=== PATIENT | male | born 1930 | race Caucasian/White ===

== ENCOUNTER 2016-03-30 01:59 | Emergency (ER) | payer OTHER, MEDICARE ==
[~2016-03-30] VITALS: Ht 177.8 cm; Wt 83.6 kg
[~2016-03-30 01:59] MED LIST: ASPEC81 PO; FERR324T PO; FLV1 PO; HYDC25 PO; INSDGI SC; LOSA1TAB PO; LSX40 PO; METH1INJ89 SQ; METO50TA16 PO; MULT-506 PO; NVLRPUC SQ; POTA10CA28 PO; RRNOVOLINR SQ; SIMV20TA2 PO
[2016-03-30 02:01] VITALS: Ht 177.8 cm; Wt 83.6 kg
[2016-03-30] MEDS ORDERED: OXYMETAZOLINE HCL 0.05% NA SPR 15 ML BTL ONE ×2 (02:17→02:30)
--- NOTE | 2016-03-30 02:34 | EMERGENCY ROOM VISIT NOTE ---
History Report prepared by Pattie: Brayan Delgado Under the Supervision of: Dr. Alfredo Adam M.D. First contact with patient: 02:09 Chief Complaint: NOSE BLEED (MINOR) Stated Complaint: NOSE BLEED - CAN'T GET IT STOPPED History of Present Illness The patient is a 86 year old male who presents to the Emergency Room with complaints of intermittent left sided epistaxis starting about 4 hours ago. He denies chest pain, abdominal pain, black/bloody stools, lower extremity pain/ swelling, bruising, or any other complaints. The patient was evaluated in the Emergency Room about a week ago for similar symptoms. He denies any other history of nosebleed. The patient is on Aspirin. He is no longer on Coumadin. Source of History: patient Onset: about 4 hours ago Position: nose Quality: other (left sided epistaxis) Timing: intermittent Associated Symptoms: No abdominal pain, No chest pain Review of Systems See HPI for pertinent positives & negatives. A total of 6 systems reviewed and were otherwise negative. Past Medical & Surgical Medical Problems: (1) Diabetic peripheral neuropathy associated with type 2 diabetes mellitus (2) Epistaxis (3) Foot deformity (4) History of diabetic ulcer of foot (5) Loss of sensation Family History FHx: heart disease Social History Smoking Status: Never Smoker Marital Status: Occupation Status: retired Current/Historical Medications Scheduled Aspirin Enteric Coated (Ecotrin Or Generic *), 81 MG PO DAILY Cephalexin Monohydrate (Keflex), 500 MG PO TID Ferrous Gluconate (Iron Supplement), 324 MG PO DAILY Folic Acid (Folvite *), 1 MG PO DAILY Furosemide (Furosemide), 40 MG PO DAILY Hydrochlorothiazide (Hctz *), 25 MG PO DAILY Insulin Glargine (Lantus), 15 UNITS SC QPM Insulin Human Regular (Novolin R), 15 UNITS SQ DAILYBB Insulin Human Regular (Novolin R), 12 UNITS SQ DAILYBL Insulin Human Regular (Novolin R), 20 UNITS SQ DAILYBD Losartan Potassium (Cozaar), 25 MG PO DAILY Methotrexate (Methotrexate), 10 MG SQ WK Metoprolol Tartrate (Lopressor) (Lopressor), 50 MG PO DAILY Multivitamin (Multivitamin), 1 TAB PO DAILY Potassium Chloride (Micro-K Ext Rel), 20 MEQ PO DAILY Simvastatin (Zocor), 20 MG PO QPM Allergies Coded Allergies: No Known Allergies (Verified , 03/30/16) Physical Exam Vital Signs Date Time Temp Pulse Resp B/P Pulse Ox O2 Delivery O2 Flow Rate FiO2 03/30/16 03:51 76 18 115/64 96 03/30/16 02:01 79 21 143/69 100 Room Air Physical Exam GENERAL: Patient is well appearing and in minimal distress. HEENT: No acute trauma, normocephalic atraumatic. Active bleeding from left nares, no clear source of blood found. Mucous membranes moist, no nasal congestion, no scleral icterus. NECK: No stridor, no adenopathy, no meningismus, trachea is midline. LUNGS: No dyspnea. Clear to auscultation and equal bilaterally. No wheeze, no rhonchi. HEART: Regular rate and rhythm. No murmurs, rubs, gallops appreciated. EXTREMITIES: Normal motion all extremities, no cyanosis, no edema. NEUROLOGIC: Alert and oriented, no acute motor or sensory deficits, no focal weakness, cranial nerves grossly intact. SKIN: No rash, no jaundice, no diaphoresis. Medical Decision & Procedures Laboratory Results 03/30/16 02:30 03/30/16 02:30 Test 03/30/16 02:30 Red Blood Count 2.92 M/uL (4.7-6.1) Mean Corpuscular Volume 94.2 fL (80-100) Mean Corpuscular Hemoglobin 30.8 pg (25-34) Mean Corpuscular Hemoglobin Concent 32.7 g/dl (32-36) RDW Standard Deviation 55.2 fL (36.4-46.3) RDW Coefficient of Variation 16.2 % (11.5-14.5) Mean Platelet Volume 10.0 fL (7.4-10.4) Prothrombin Time 11.4 SECONDS (9.0-12.0) Prothromb Time International Ratio 1.1 (0.9-1.1) Activated Partial Thromboplast Time 24.4 SECONDS (21.0-31.0) Partial Thromboplastin Ratio 0.9 Anion Gap 11.0 mmol/L (3-11) Est Creatinine Clear Calc Drug Dose 27.7 ml/min Estimated GFR () 35.7 Estimated GFR (Non- 30.8 BUN/Creatinine Ratio 19.0 (10-20) Calcium Level 8.3 mg/dl (8.5-10.1) Laboratory results as reviewed by me. Medications Administered Medications (Trade) Dose Ordered Sig/Rosemarie Route Start Time Stop Time Status Last Admin Dose Admin Cephalexin Monohydrate (Keflex Cap) 500 mg NOW ONCE PO 03/30/16 03:30 03/30/16 03:31 DC 03/30/16 03:42 500 MG Procedure Anterior Nasal Packing Indication: Persistent epistaxis Verbal consent obtained. Risks and benefits were explained with the usual customary discussion. A time out was taken. Clots were removed with suction. The left naris was prepped with Afrin. A 5.5-cm rapid rhino was placed in a standard fashion. The patient tolerated this well. Hemostasis was achieved. No complications. ED Course 0209: The patient was evaluated in room B06. A complete history and physical exam was performed. 0308: The patient did not have any more nosebleeds. 0326: Reevaluated the patient. Discussed results and discharge instructions: He verbalized understanding and agreement. The patient is ready for discharge. Medical Decision Differential: Anterior/Posterior Epistaxis, Coagulopathy, Trauma, Fracture, Septal Hematoma, amongst other pathologies entertained. 86 yr old male on ASA 81mg MWF arrives for second time in week with left nasal epistaxis. No clear source of bleeding though suspect anterior septum as there is some irritation in this area. Given this is second trip and he has been trying adequate approach at home last few hours felt that RapidRhino next step this evening. Placed in standard fashion without issue. Noted some discomfort thus small amount air removed. Very slight bloody ooze following but no further after this. Discussed ooze may come and go but if no heavy bleeding nor soaking then reasonable to monitor at home. Having no posterior bleeding with rhino in. As no previous issues until last week with bleeding went ahead with labs which he has similar anemia to previous and otherwise labs OK. Case management in to see about helping get in with ENT in 48-[address] on a few days Keflex for prophylaxis. Stable and otherwise feeling well. Discussed symptoms requiring RTED. Impression Primary Impression: Left-sided epistaxis Scribe Attestation The scribe's documentation has been prepared under my direction and personally reviewed by me in its entirety. I confirm that the note above accurately reflects all work, treatment, procedures, and medical decision making performed by me. Departure Information Dispostion Home / Self-Care Prescriptions Cephalexin Monohydrate (Keflex) 500 Mg Cap 500 MG PO TID for 3 Days, #9 CAP Prov: Alfredo Adam M.D. 03/30/16 Referrals Seng Narvaez III, M.D. (PCP) Arnol Pickering D.O. Forms HOME CARE DOCUMENTATION FORM, IMPORTANT VISIT INFORMATION, WORK / SCHOOL INSTRUCTIONS Patient Instructions A Signature Page, ED Georgie, My [facility]
[2016-03-30 02:39] LABS: HEMATOCRIT 27.5 % (42-52); MEAN CELL VOLUME 94.2 fL (80-100); MEAN CORPUSCULAR HEMOGLOBIN 30.8 pg (25-34); MEAN CORPUSCULAR HGB CONC 32.7 g/dl (32-36); PLATELET COUNT 129 K/uL (130-400); RED BLOOD COUNT 2.92 M/uL (4.7-6.1); WHITE BLOOD COUNT 6.31 K/uL (4.8-10.8)
[2016-03-30 02:51] LABS: INR 1.1 (0.9-1.1); PARTIAL THROMBOPLASTIN RATIO 0.9; PROTHROMBIN TIME (PATIENT) 11.4 SECONDS (9.0-12.0)
[2016-03-30 02:56] LABS: CALCIUM 8.3 mg/dl (8.5-10.1); CREATININE 1.9 mg/dl (0.60-1.40); POTASSIUM 3.5 mmol/L (3.5-5.1)
[2016-03-30] MEDS ORDERED: CEPH500C PO (03:23)
[2016-03-30] MEDS ORDERED: CEPHALEXIN MONOHYDRATE 250 MG CAP PO ONE (03:30)
[2016-03-30 03:51] VITALS: BP 115/64; PULSE 76; O2SAT 96
[2016-09-03] MEDS ORDERED: RXC5 PO (14:13)
[2016-09-03] MEDS ORDERED: ERTA1INJ IV (14:13)
[2016-09-03] MEDS ORDERED: DAPT500I IV (14:13)
[2016-09-27] MEDS ORDERED: IPRASOL4 INH (15:22)
[2016-10-19] MEDS ORDERED: OXYC-57 PO (08:09)
[2016-11-11] MEDS ORDERED: NYSS5 PO (12:48)
[2016-11-11] MEDS ORDERED: PIPE2SOL IV (12:48)
[2016-11-11] MEDS ORDERED: HPRIS5M SQ (12:48)
[2016-11-11] MEDS ORDERED: MCRK20 PO (12:48)
[2016-11-11] MEDS ORDERED: LSX20 PO (12:51)
[2016-12-06] MEDS ORDERED: ASCO1CAP3 PO (12:46)
[2016-12-06] MEDS ORDERED: PROTEIN PO (13:17)
[2016-12-06] MEDS ORDERED: NVLGI/PEN SQ (13:17)
[2016-12-20] MEDS ORDERED: ULT50X PO (19:08)
== END 2016-03-30 03:51 | disposition home or self-care (01) ==
LOC: C.EDB 02:00
DX: R04.0 Epistaxis (principal); E11.40 Type 2 diabetes mellitus with diabetic neuropathy, unspecified; E08.621 Diabetes mellitus due to underlying condition with foot ulcer; Z79.4 Long term (current) use of insulin; Z79.82 Long term (current) use of aspirin; Z79.899 Other long term (current) drug therapy; Z82.49 Family history of ischemic heart disease and other diseases of the circulatory system

== ENCOUNTER 2016-08-20 13:26 | Inpatient (IN) | payer OTHER, MEDICARE ==
[~2016-08-20] VITALS: Ht 177.8 cm; Wt 87.6 kg
[2016-08-20] MEDS ORDERED: CEFTRIAXONE SOD INJ 1 GM ADDVIAL IV STA (13:45)
--- NOTE | 2016-08-20 13:56 | EMERGENCY ROOM VISIT NOTE ---
History First contact with patient: 13:34 Chief Complaint: SWELLING TO EXTREMITY Stated Complaint: REDNESS, SWELLING TO LOWER LEFT LEG History of Present Illness The patient is an 86 year old male who presents to the Emergency Room with complaints of left leg redness and swelling. The patient saw his flavorer 4 days ago to have his toenails cut as he does regularly. The patient states that she put a Band-Aid on his toe but he did not realize if there was any open area. The patient states that he noticed redness to the left leg over the last 3 days and has progressively worsened and extending proximally. He took his sock off and noticed bleeding at the toe. The patient denies any fevers. He denies any pain but he does have diabetic neuropathy. He denies any pain in his chest or trouble breathing. He denies any abdominal pain, nausea or vomiting. He denies any other injury. 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 Review of Systems A 10 system review of systems was completed with positives and pertinent negatives listed in the HPI. Past Medical/Surgical History Medical Problems: (1) Atrial fibrillation (2) Cellulitis and abscess of foot (3) Diabetic peripheral neuropathy associated with type 2 diabetes mellitus (4) Epistaxis (5) Foot deformity (6) History of diabetic ulcer of foot (7) Loss of sensation Family History FHx: heart disease Social History Smoking Status: Former Smoker Marital Status: Occupation Status: retired Current/Historical Medications Scheduled Aspirin Enteric Coated (Ecotrin Or Generic), 81 MG PO QAM Cholecalciferol (Vitamin D), 2,000 UNIT PO QAM Ferrous Gluconate (Fe Gluconate), 325 MG PO QAM Folic Acid (Folic Acid), 1 MG PO QAM Furosemide (Furosemide), 40 MG PO DAILY Insulin Glargine (Lantus), 15 UNITS SC QPM Insulin Human Regular (Novolin R), 15 UNITS SQ DAILYBB Insulin Human Regular (Novolin R), 12 UNITS SQ DAILYBL Insulin Human Regular (Novolin R), 20 UNITS SQ DAILYBD Losartan Potassium (Cozaar), 12.5 MG PO DAILY Methotrexate (Methotrexate Sodium), 10 MG SQ WK Metoprolol Tartrate (Lopressor) (Lopressor), 25 MG PO BID Multivitamin (Multivitamin), 1 TAB PO DAILY Potassium Chloride (Micro-K Ext Rel), 10 MEQ PO DAILY Simvastatin (Zocor), 10 MG PO QPM Allergies Coded Allergies: Lisinopril (Unverified Allergy, Unknown, COUGHING, 08/20/16) Physical Exam Vital Signs Date Time Temp Pulse Resp B/P (MAP) Pulse Ox O2 Delivery O2 Flow Rate FiO2 08/20/16 13:28 37.0 109 20 120/52 92 Room Air Physical Exam VITALS: Vitals are noted on the nurse's note and reviewed by myself. Vital signs stable. GENERAL: This is an 86-year-old male, in no acute distress, nondiaphoretic, well -developed well-nourished. SKIN: There are venous stasis changes to the bilateral lower extremities. There is erythema to the left lower extremity on the anterior aspect that extends from the knee to the toes. There is an open area to the distal plantar aspect of the left third toe. There is mild bleeding. There is necrotic tissue and hematoma to the plantar aspect of the left third toe. There is no significant tenderness to palpation. There is no purulent drainage. There is no tenting of the skin. Capillary reflex less than 2 seconds. HEAD: Normocephalic atraumatic. EARS: The external ears are normal in appearance. EYES: Pupils equal round and reactive to light and accommodation. Conjunctivae without injection, sclerae without icterus. Extraocular movements intact. NOSE: Patent, turbinates without inflammation or discharge. MOUTH: Mucous membranes moist. Tonsils are not enlarged. Pharynx without erythema or exudate. Uvula midline. Airway patent. Tongue does not deviate. NECK: Supple without nuchal rigidity. No lymphadenopathy. No thyromegaly. Cervical spine is nontender. No JVD. HEART: Irregularly irregular. LUNGS: Clear to auscultation bilaterally without wheezes, rales or rhonchi. No retractions or accessory muscle use. MUSCULOSKELETAL: Skin changes as above. There is no left calf swelling, tenderness, palpable cord. Full range of motion without joint tenderness in all extremities. No tenderness to palpation. Strength 5/5 throughout. NEURO: Patient was alert and oriented to person place and time. No focal neurological deficits. Medical Decision & Procedures ER Provider Diagnostic Interpretation: LEFT FOOT MIN 3 VIEWS ROUTINE CLINICAL HISTORY: left foot infection, attention left third toe COMPARISON: None. DISCUSSION: There are subluxations at the level of the first and second metatarsal phalangeal joints. There are advanced degenerative changes the level of the first metatarsal phalangeal joint. No acute fractures are visualized. There is a pes planus deformity. There are vascular calcifications. There is no conventional radiographic evidence of osteomyelitis. IMPRESSION: 1. No acute fractures 2. No conventional radiographic evidence of acute osteomyelitis 3. Subluxations at the level the first and second metatarsal phalangeal joints. Laboratory Results 08/20/16 14:40 Red Blood Count 3.41, Mean Corpuscular Volume 93.0, Mean Corpuscular Hemoglobin 29.6, Mean Corpuscular Hemoglobin Concent 31.9, Mean Platelet Volume 10.3, Neutrophils (%) (Auto) 84.9, Lymphocytes (%) (Auto) 6.7, Monocytes (%) (Auto) 7.8, Eosinophils (%) (Auto) 0.4, Basophils (%) (Auto) 0.1, Neutrophils # (Auto) 8.53, Lymphocytes # (Auto) 0.67, Monocytes # (Auto) 0.78, Eosinophils # (Auto) 0.04, Basophils # (Auto) 0.01 08/20/16 14:40 Test 08/20/16 14:40 White Blood Count 10.04 K/uL (4.8-10.8) Red Blood Count 3.41 M/uL (4.7-6.1) Hemoglobin 10.1 g/dL (14.0-18.0) Hematocrit 31.7 % (42-52) Mean Corpuscular Volume 93.0 fL (80-100) Mean Corpuscular Hemoglobin 29.6 pg (25-34) Mean Corpuscular Hemoglobin Concent 31.9 g/dl (32-36) Platelet Count 125 K/uL (130-400) Mean Platelet Volume 10.3 fL (7.4-10.4) Neutrophils (%) (Auto) 84.9 % Lymphocytes (%) (Auto) 6.7 % Monocytes (%) (Auto) 7.8 % Eosinophils (%) (Auto) 0.4 % Basophils (%) (Auto) 0.1 % Neutrophils # (Auto) 8.53 K/uL (1.4-6.5) Lymphocytes # (Auto) 0.67 K/uL (1.2-3.4) Monocytes # (Auto) 0.78 K/uL (0.11-0.59) Eosinophils # (Auto) 0.04 K/uL (0-0.5) Basophils # (Auto) 0.01 K/uL (0-0.2) RDW Standard Deviation 55.9 fL (36.4-46.3) RDW Coefficient of Variation 16.5 % (11.5-14.5) Immature Granulocyte % (Auto) 0.1 % Immature Granulocyte # (Auto) 0.01 K/uL (0.00-0.02) Erythrocyte Sedimentation Rate 50 mm/hr (0-14) Prothrombin Time 12.4 SECONDS (9.0-12.0) Prothromb Time International Ratio 1.2 (0.9-1.1) Activated Partial Thromboplast Time 27.5 SECONDS (21.0-31.0) Partial Thromboplastin Ratio 1.1 Anion Gap 8.0 mmol/L (3-11) Est Creatinine Clear Calc Drug Dose 27.7 ml/min Estimated GFR () 35.7 Estimated GFR (Non- 30.8 BUN/Creatinine Ratio 19.9 (10-20) Calcium Level 8.1 mg/dl (8.5-10.1) Total Bilirubin 1.2 mg/dl (0.2-1) Aspartate Amino Transf (AST/SGOT) 21 U/L (15-37) Alanine Aminotransferase (ALT/SGPT) 22 U/L (12-78) Alkaline Phosphatase 67 U/L (45-117) C-Reactive Protein 7.48 mg/dl (0-0.29) Total Protein 8.7 gm/dl (6.4-8.2) Albumin 2.8 gm/dl (3.4-5.0) Globulin 5.9 gm/dl (2.5-4.0) Albumin/Globulin Ratio 0.5 (0.9-2) Chemistry Specimen Hemolysis Medications Administered Medications (Trade) Dose Ordered Sig/Rosemarie Route Start Time Stop Time Status Last Admin Dose Admin Ceftriaxone Sodium (Rocephin Inj) 1 gm NOW STAT IV 08/20/16 13:45 08/20/16 13:52 DC 08/20/16 14:42 1 GM Vancomycin HCl (Vancomycin 1gm/ 270ml Nss) 1 gm NOW STAT IV 08/20/16 15:54 08/20/16 15:56 DC 6/2/17 16:26 1 GM ED Course The patient was seen and examined. Previous visits were reviewed. The patient does not have a fever or leukocytosis. He has a mild anemia. Sedimentation rate is elevated at 50 and CRP is elevated at 7.48. His BUN/creatinine creatinine are elevated at 38 and 1.9, respectively. He does have a history of renal insufficiency. His glucose is elevated at 200. He does have a history of diabetes. INR was 1.2. Urinalysis was negative. X-ray of the left foot does not reveal any air or obvious osteomyelitis The patient was given Rocephin 1 g IV He was also given IV vancomycin Given the patient's history of diabetes, neuropathy, amputation and sudden worsening of left leg cellulitis, he would benefit from further evaluation and management in the hospital. [facility] I was asked to also order blood cultures. These were not obtained initially as the patient does not have fever, leukocytosis, hypotension or symptoms to suggest sepsis. Therefore, the blood cultures were obtained after the dose of Rocephin. The patient was also seen and examined by who agrees with the assessment and treatment plan. Medication Reconciliation: I attest that I have personally reviewed the patient' s current medication list. Medical Decision The differential diagnosis includes abscess, cellulitis, osteomyelitis, necrotizing fasciitis, fracture, open area, laceration, among others Impression Primary Impression: Cellulitis of left leg Departure Information Dispostion Admitted as an inpatient Condition GOOD Referrals Seng Narvaez III, M.D. (PCP) Patient Instructions My [facility]
[2016-08-20 14:52] LABS: BASO % 0.1 %; BASO ABS # 0.01 K/uL (0-0.2); COMPLETE YES; EOS % 0.4 %; HEMATOCRIT 31.7 % (42-52); IG% 0.1 %; LYMPH % 6.7 %; LYMPH ABS # 0.67 K/uL (1.2-3.4); MEAN CORPUSCULAR HEMOGLOBIN 29.6 pg (25-34); MEAN CORPUSCULAR HGB CONC 31.9 g/dl (32-36); MEAN PLATELET VOLUME 10.3 fL (7.4-10.4); MONO % 7.8 %; NEUT % 84.9 %; PLATELET COUNT 125 K/uL (130-400); RED BLOOD COUNT 3.41 M/uL (4.7-6.1); WHITE BLOOD COUNT 10.04 K/uL (4.8-10.8)
[2016-08-20 15:02] LABS: INR 1.2 (0.9-1.1); PARTIAL THROMBOPLASTIN RATIO 1.1; PROTHROMBIN TIME (PATIENT) 12.4 SECONDS (9.0-12.0)
[2016-08-20 15:15] LABS: ALB/GLOB RATIO 0.5 (0.9-2); BUN/CREATININE RATIO 19.9 (10-20); C-REACTIVE PROTEIN 7.48 mg/dl (0-0.29); CALCIUM 8.1 mg/dl (8.5-10.1); CREATININE 1.9 mg/dl (0.60-1.40); POTASSIUM 4.1 mmol/L (3.5-5.1)
--- NOTE | 2016-08-20 15:21 | DIAGNOSTIC IMAGING REPORT ---
LEFT FOOT MIN 3 VIEWS ROUTINE CLINICAL HISTORY: left foot infection, attention left third toe COMPARISON: None. DISCUSSION: There are subluxations at the level of the first and second metatarsal phalangeal joints. There are advanced degenerative changes the level of the first metatarsal phalangeal joint. No acute fractures are visualized. There is a pes planus deformity. There are vascular calcifications. There is no conventional radiographic evidence of osteomyelitis. IMPRESSION: 1. No acute fractures 2. No conventional radiographic evidence of acute osteomyelitis 3. Subluxations at the level the first and second metatarsal phalangeal joints. Electronically signed by: Michoacano Christopher M.D. 08/20/2016 3:19 PM Dictated Date/Time: 08/20/2016 3:18 PM
--- NOTE | 2016-08-20 15:50 | EMERGENCY ROOM VISIT NOTE ---
ED Visit Note First contact with patient: 15:43 Patient was seen by our PA/DIVISION CHIEF. I was involved in the patient's care and did evaluate the patient myself. I was involved in the care throughout the ER stay. The patient has a distal left leg cellulitis which seems to have started from his left third toe. Admission/observation is warranted. The on-call hospitalist has been consulted.
[2016-08-20] MEDS ORDERED: VANCOMYCIN 1GM/270ML NSS IV STA (15:54)
[2016-08-20] MEDS ORDERED: FLV1 PO (16:00)
[2016-08-20] MEDS ORDERED: CHOL20009 PO (16:00)
[2016-08-20] MEDS ORDERED: METO25TA56 PO (16:00)
[2016-08-20] MEDS ORDERED: MTHI50 SQ (16:00)
[2016-08-20] MEDS ORDERED: FERR325T49 PO (16:00)
[2016-08-20] MEDS ORDERED: ASPI81TA21 PO (16:00)
[2016-08-20 18:00] VITALS: BP 146/60; PULSE 98; TEMP 37.3; O2SAT 95; Ht 177.8 cm; Wt 87.6 kg
[2016-08-20 19:09] VITALS: BP 120/62; PULSE 107; TEMP 37; O2SAT 97
--- NOTE | 2016-08-20 20:44 | History and Physical ---
History & Physical Date & Time of Service: Aug 20, 2016 at ~ 20:00 . Chief Complaint: redness left foot and leg . Primary Care Physician: Seng Narvaez III, M.D. . History of Present Illness Source: patient, clinic records, hospital records 86 YO male followed by Dr. Narvaez for Family Medicine, Dr. Stewart for Cardiology, Dr. Luo for Nephrology, and Dr. Bahena for Rheumatology. History of coronary artery disease, chronic AF, bioprosthetic AVR, DM, CKD, RA, and other problems as noted below. Lives independently in home in [place]. Toenails trimmed by Podiatry a few days ago. Yesterday noted erythema of left third toe. This morning he noted erythema rapidly ascending from his foot to his leg. No fever, chills, sweats. No lower extremity pain. History of diabetic neuropathy. History of peripheral vascular disease, s/p bypass procedure RLE. 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 . Past Medical/Surgical History Chronic and Resolved Medical Problems: (1) Aortic stenosis Permanent Comment: s/p AVR Status: Chronic (2) Atrial fibrillation Status: Chronic (3) Carotid arterial disease Status: Chronic (4) CKD (chronic kidney disease), stage III Status: Chronic (5) Diabetes mellitus, type 2 Status: Chronic (6) Diabetic peripheral neuropathy associated with type 2 diabetes mellitus Status: Chronic (7) Dyslipidemia Status: Chronic (8) History of adenomatous polyp of colon Status: Chronic (9) History of diabetic ulcer of foot Status: Chronic (10) Hypertension Status: Chronic (11) Peripheral vascular disease Status: Chronic (12) Rheumatoid arthritis Status: Chronic Surgical Problems: (1) Status post amputation of toe of right foot Permanent Comment: right 2nd toe Status: Chronic (2) Status post aortic valve replacement with bioprosthetic valve Status: Chronic (3) Status post cardiac catheterization Status: Chronic (4) Status post cataract extraction Status: Chronic (5) Status post cholecystectomy Status: Chronic (6) Status post coronary artery bypass grafting Status: Chronic . Family History FATHER Coronary artery disease BROTHER Kidney disease BROTHER Cancer SISTER Cancer Social History Smoking Status: Former Smoker Alcohol Use: none Marital Status: Occupational Status: retired Immunizations History of Influenza Vaccine: Yes History of Tetanus Vaccine?: Yes Tetanus Immunization Date: Feb 06, 2008 History of Pneumococcal: Yes Pneumococcal Date: Feb 06, 2008 History of Hepatitis B Vaccine: No Multi-Drug Resistant Organisms History of MDRO: No Allergies Coded Allergies: Lisinopril (Unverified Allergy, Unknown, COUGHING, 08/20/16) Home Medications Scheduled Aspirin Enteric Coated (Ecotrin Or Generic), 81 MG PO QAM Cholecalciferol (Vitamin D), 2,000 UNIT PO QAM Ferrous Gluconate (Fe Gluconate), 325 MG PO QAM Folic Acid (Folic Acid), 1 MG PO QAM Furosemide (Furosemide), 40 MG PO DAILY Insulin Glargine (Lantus), 15 UNITS SC QPM Insulin Human Regular (Novolin R), 15 UNITS SQ DAILYBB Insulin Human Regular (Novolin R), 12 UNITS SQ DAILYBL Insulin Human Regular (Novolin R), 20 UNITS SQ DAILYBD Losartan Potassium (Cozaar), 12.5 MG PO DAILY Methotrexate (Methotrexate Sodium), 10 MG SQ WK Metoprolol Tartrate (Lopressor) (Lopressor), 25 MG PO BID Multivitamin (Multivitamin), 1 TAB PO DAILY Potassium Chloride (Micro-K Ext Rel), 10 MEQ PO DAILY Simvastatin (Zocor), 10 MG PO QPM Review of Systems Constitutional: No fever, No weight loss Eyes: No worsening of vision, No diplopia ENT: + hearing loss, + unusual epistaxis (about 6 wks ago while on warfarin), No sore throat Respiratory: No cough, No wheezing, No shortness of breath Cardiovascular: No chest pain, No edema Abdomen: No pain, No nausea, No vomiting, No diarrhea, No GI bleeding Musculoskeletal: + joint pain Genitourinary - Male: No hematuria, No dysuria Neurologic: No paralysis Endocrine: No excessive thirst, No excessive urination Hematologic / Lymphatic: + abnormal bleeding/bruising Integumentary: No rash, No new/changing skin lesions Physical Exam Vital Signs Date Time Temp Pulse Resp B/P (MAP) Pulse Ox O2 Delivery O2 Flow Rate FiO2 08/20/16 19:09 37.0 107 20 120/62 (81) 97 Room Air 08/20/16 18:00 37.3 98 18 146/60 95 Room Air 08/20/16 17:41 92 122/79 97 08/20/16 16:21 81 08/20/16 16:04 37.1 80 18 140/74 98 08/20/16 13:28 37.0 109 20 120/52 92 Room Air General Appearance: WD/WN, no apparent distress Head: normocephalic, atraumatic Eyes: normal inspection, PERRL, EOMI, sclerae normal ENT: normal ENT inspection, pharynx normal, + pertinent finding (dentures) Neck: supple, no adenopathy, thyroid normal, no JVD, trachea midline Respiratory/Chest: lungs clear, no respiratory distress, no accessory muscle use Cardiovascular: no edema, no gallop, no JVD, + systolic murmur (II/ sys murmur @ base), + irregularly irregular, + abnormal peripheral pulses (pedal pulses 1/2 bilat; capillary refill toes 1-2 sec; trace pretibial edema LLE) Abdomen/GI: normal bowel sounds, non tender, soft, no organomegaly, no pulsatile mass Extremities/Musculoskelatal: no calf tenderness, + pertinent finding (left 3rd toe with dark bullous lesion on plantar surface and erythema on dorsal surface; erythema dorsum of foot extending to left leg below knee) Neurologic/Psych: chief chemist II-XII nml as tested (PERRL, EOMI, no facial palsy), alert, normal mood/affect, oriented x 3 Skin: warm/dry Lymphatic: no adenopathy (cervical) Diagnostics Laboratory Results Results Past 24 Hours Test 08/20/16 14:40 08/20/16 16:21 08/20/16 17:39 Range/Units White Blood Count 10.04 4.8-10.8 K/uL Red Blood Count 3.41 4.7-6.1 M/uL Hemoglobin 10.1 14.0-18.0 g/dL Hematocrit 31.7 42-52 % Mean Corpuscular Volume 93.0 80-100 fL Mean Corpuscular Hemoglobin 29.6 25-34 pg Mean Corpuscular Hemoglobin Concent 31.9 32-36 g/dl Platelet Count 125 130-400 K/uL Mean Platelet Volume 10.3 7.4-10.4 fL Neutrophils (%) (Auto) 84.9 % Lymphocytes (%) (Auto) 6.7 % Monocytes (%) (Auto) 7.8 % Eosinophils (%) (Auto) 0.4 % Basophils (%) (Auto) 0.1 % Neutrophils # (Auto) 8.53 1.4-6.5 K/uL Lymphocytes # (Auto) 0.67 1.2-3.4 K/uL Monocytes # (Auto) 0.78 0.11-0.59 K/uL Eosinophils # (Auto) 0.04 0-0.5 K/uL Basophils # (Auto) 0.01 0-0.2 K/uL RDW Standard Deviation 55.9 36.4-46.3 fL RDW Coefficient of Variation 16.5 11.5-14.5 % Immature Granulocyte % (Auto) 0.1 % Immature Granulocyte # (Auto) 0.01 0.00-0.02 K/uL Erythrocyte Sedimentation Rate 50 0-14 mm/hr Prothrombin Time 12.4 9.0-12.0 SECONDS Prothromb Time International Ratio 1.2 0.9-1.1 Activated Partial Thromboplast Time 27.5 21.0-31.0 SECONDS Partial Thromboplastin Ratio 1.1 Sodium Level 137 136-145 mmol/L Potassium Level 4.1 3.5-5.1 mmol/L Chloride Level 101 98-107 mmol/L Carbon Dioxide Level 28 21-32 mmol/L Anion Gap 8.0 3-11 mmol/L Blood Urea Nitrogen 38 7-18 mg/dl Creatinine 1.90 0.60-1.40 mg/dl Est Creatinine Clear Calc Drug Dose 27.7 ml/min Estimated GFR () 35.7 Estimated GFR (Non- 30.8 BUN/Creatinine Ratio 19.9 10-20 Random Glucose 200 70-99 mg/dl Calcium Level 8.1 8.5-10.1 mg/dl Total Bilirubin 1.2 0.2-1 mg/dl Aspartate Amino Transf (AST/SGOT) 21 15-37 U/L Alanine Aminotransferase (ALT/SGPT) 22 12-78 U/L Alkaline Phosphatase 67 45-117 U/L C-Reactive Protein 7.48 0-0.29 mg/dl Total Protein 8.7 6.4-8.2 gm/dl Albumin 2.8 3.4-5.0 gm/dl Globulin 5.9 2.5-4.0 gm/dl Albumin/Globulin Ratio 0.5 0.9-2 Chemistry Specimen Hemolysis Lactic Acid Level 1.2 0.4-2.0 mmol/L Bedside Glucose 162 70-99 mg/dl Microbiology Results 08/20/16 Blood Culture, Received Pending 08/20/16 Blood Culture, Received Pending Impression Assessment and Plan CELLULITIS LEFT FOOT AND LEG Rapidly progressing cellulitis of left lower extremity, starting with left third toe. Plain films of foot did not reveal any apparent osteomyelitis. C-reactive protein 7.48. Lactic acid 1.2. Blood cultures obtained in ED. Received IV antibiotic coverage with vancomycin and ceftriaxone. Will change gram + coverage to daptomycin due to CKD. Will start piperacillin / tazobactam for gram negative + anaerobic coverage. Consult surgery regarding left third toe. CORONARY ARTERY DISEASE No anginal symptoms. Continue aspirin, metoprolol. Hold statin due to therapy with daptomycin. ATRIAL FIBRILLATION Chronic AF. On metoprolol for rate control. Anticoagulation discontinue by Cardiology due to epistaxis and unsteady gait. Continue aspirin and metoprolol. HYPERTENSION Continue metoprolol. Follow and titrate Rx. CKD III Baseline creatinine 1.6. Creatinine in ED 1.9. Follow. 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 Well-controlled at home. Random blood sugar in ED 200. Hgb A1C in clinic 7.0 on 06/30/16. Lantus + NovoLog per protocol during hospital stay. DYSLIPIDEMIA Hold simvastatin due to therapy with daptomycin. RHEUMATOID ARTHRITIS Hold methotrexate pending resolution of cellulitis. VTE PROPHYLAXIS Moderate risk for VTE. SQ heparin. RESUSCITATION STATUS Discussed with patient. He has a living will. He would not like resuscitation attempted in the event of a cardiopulmonary arrest; he prefers a natural passing without extraordinary interventions. Therefore, code status = "Level 5" (DNR). DISPOSITION To be determined. Family Medicine follow-up with Dr. Narvaez. Cardiology follow-up with Dr. Luis Stewart. Rheumatology follow-up with Dr. Bahena. Nephrology follow-up with Dr. Luo. . Advanced Directives Existing Living Will: Yes Existing Power of Conceptor: Yes VTE Prophylaxis VTE Risk Assessment Done? Y/N: Yes Risk Level: Moderate Given or contraindicated: Unfractionated heparin SQ Additional Copies To Luis Stewart DO; Sydney Luo DO; Slava Bahena M.D.; Seng Narvaez III, M.D.
[2016-08-20] MEDS ORDERED: GLUCOSE 40% GEL 15 GM TUBE PO PRN (21:00)
[2016-08-20] MEDS ORDERED: DEXTROSE 50% 50 ML SYR IV PRN (21:00)
[2016-08-20] MEDS ORDERED: GLUCOSE 10 TABS/TUBE PO PRN (21:00)
[2016-08-20] MEDS ORDERED: GLUCAGON FOR INJ 1 MG VIAL SQ PRN (21:00)
[2016-08-20] MEDS: METOPROLOL TARTRATE 25 MG TAB PO SCH (21:24)
[2016-08-20] MEDS: INSULIN GLARGINE SOLOSTAR 100 UNITS/ML 3 ML PEN SC SCH (21:27)
[2016-08-20] MEDS: INSULIN ASPART 100 UNITS/ML 3 ML PEN SC SCH (21:28)
[2016-08-20 22:18] LABS: URINE APPEARANCE CLEAR (CLEAR); URINE BILIRUBIN NEG (NEG); URINE COLOR YELLOW; URINE EPITHELIAL CELL AUTO >30 /lpf (0-5); URINE NITRITE NEG (NEG); URINE SPECIFIC GRAVITY 1.016 (1.000-1.030); UROBILINOGEN NEG (NEG); ZZUR CULT IF INDIC CLEAN CATCH NO
[2016-08-20 22:19] LABS: MANUAL MICROSCOPIC REQUIRED? NO; REVIEW REQ? YES
[2016-08-20] MEDS: ACETAMINOPHEN 325 MG TAB PO PRN (23:39)
[2016-08-20 23:50] VITALS: BP 97/54; PULSE 76; TEMP 37.3; O2SAT 96
[2016-08-21] VITALS (9 sets, daily range): BP systolic 107–132; BP diastolic 47–82; PULSE 84–109; TEMP 36.3–37; O2SAT 95–97
[2016-08-21] MEDS ORDERED: PIPERACILL/TAZOBAC CONSULT ACTIVE PRN (01:00)
[2016-08-21] MEDS ORDERED: PIPERACILL/TAZOBAC IV 3.375 GM in DEXTROSE 5% 100ML IV ONE (01:00)
[2016-08-21] MEDS: PIPERACILL/TAZOBAC IV 3.375 GM in DEXTROSE 5% 100ML IV SCH ×3 (05:59→21:34)
[2016-08-21] MEDS ORDERED: PIPERACILL/TAZOBAC IV 3.375 GM in DEXTROSE 5% 100ML 100 ML IV SCH (06:00)
[2016-08-21] MEDS: MULTIVITAMIN TAB PO SCH (07:33)
[2016-08-21] MEDS: METOPROLOL TARTRATE 25 MG TAB PO SCH ×2 (07:33→20:43)
[2016-08-21] MEDS: ASPIRIN 81 MG ECTAB PO SCH (07:34)
[2016-08-21] MEDS: LOSARTAN POTASSIUM 25 MG TAB PO SCH (07:34)
[2016-08-21] MEDS: POTASSIUM CHLORIDE 10 MEQ TABCR PO SCH (07:35)
[2016-08-21] MEDS: HEPARIN SOD 5000 UNIT/0.5 ML CARP SQ SCH ×2 (07:36→20:48)
[2016-08-21] MEDS: INSULIN ASPART 100 UNITS/ML 3 ML PEN SC SCH ×4 (07:47→20:47)
--- NOTE | 2016-08-21 07:48 | DIAGNOSTIC IMAGING REPORT ---
CHEST ONE VIEW PORTABLE HISTORY: cellulitis COMPARISON: Chest 01/27/2008. FINDINGS: No focal lung consolidations. No evidence for pulmonary edema. The heart is top normal in size. Postoperative changes and a cardiac valve prosthesis. No pleural effusions. No pneumothorax. IMPRESSION: No acute process. Electronically signed by: He Gomez M.D. 08/21/2016 7:47 AM Dictated Date/Time: 08/21/2016 7:46 AM
[2016-08-21 07:53] LABS: CALCIUM 8.3 mg/dl (8.5-10.1); CREATININE 1.9 mg/dl (0.60-1.40); POTASSIUM 3.6 mmol/L (3.5-5.1)
[2016-08-21] MEDS ORDERED: FUROSEMIDE 40 MG TAB PO SCH (09:00)
[2016-08-21] MEDS ORDERED: DAPTOmycin IV 325 MG in SODIUM CHLORIDE 0.9% 50ML 50 ML IV SCH (09:00)
[2016-08-21] MEDS: ACETAMINOPHEN 325 MG TAB PO PRN ×2 (15:25→21:39)
--- NOTE | 2016-08-21 16:07 | Medical Consult ---
Consultation Date of Consultation: Aug 21, 2016. Attending Physician: Seng Zarate M.D. Reason for Consultation: Cellulitis left foot and leg History of Present Illness 86-year-old male with history of diabetes mellitus, peripheral vascular disease , previous amputation of toe of right foot for gangrene, atrial fibrillation, AVR, who reportedly had his toenails trimmed by Podiatry several days ago. He then noted redness and swelling of his left 3rd toe with progression over the next few days to involve the foot and leg up into the knee. He came to the hospital and has been started empirically on daptomycin and Zosyn. Today, now complaining of severe pain and inability to move his left knee. He has not had any significant fever. Has neuropathic pain in his left leg. Has been tolerating antibiotics without apparent difficulty. X-ray of the foot, read by me, shows no obvious bone infection. Past Medical/Surgical History Medical Problems: (1) Cellulitis of left leg Status: Acute (2) Left-sided epistaxis Status: Acute Medical Problems: (1) Aortic stenosis (2) Atrial fibrillation (3) Carotid arterial disease (4) CKD (chronic kidney disease), stage III (5) Diabetes mellitus, type 2 (6) Diabetic peripheral neuropathy associated with type 2 diabetes mellitus (7) Dyslipidemia (8) History of adenomatous polyp of colon (9) History of diabetic ulcer of foot (10) Hypertension (11) Peripheral vascular disease (12) Rheumatoid arthritis Surgical Problems: (1) Status post amputation of toe of right foot (2) Status post aortic valve replacement with bioprosthetic valve (3) Status post cardiac catheterization (4) Status post cataract extraction (5) Status post cholecystectomy (6) Status post coronary artery bypass grafting Family History Cancer BROTHER SISTER Coronary artery disease FATHER Kidney disease BROTHER Social History Smoking Status: Former Smoker Alcohol Use: none Marital Status: Occupation Status: retired Allergies Coded Allergies: Lisinopril (Unverified Allergy, Unknown, COUGHING, 08/20/16) Current Inpatient Medications Current Inpatient Medications Medications (Trade) Dose Ordered Sig/Rosemarie Route Start Time Stop Time Status Last Admin Dose Admin Acetaminophen (Tylenol Tab) 650 mg Q4H PRN PO 08/20/16 16:00 09/19/16 15:59 08/21/16 15:25 650 MG Aspirin (Ecotrin Tab) 81 mg QAM PO 08/21/16 09:00 09/20/16 08:59 08/21/16 07:34 81 MG Folic Acid (Folvite Tab) 1 mg QAM PO 08/21/16 09:00 09/20/16 08:59 08/21/16 07:34 1 MG Insulin Glargine (Lantus Solostar Pen) 15 unit QPM SC 08/20/16 21:00 09/19/16 20:59 08/20/16 21:27 15 UNIT Losartan Potassium (coZAAR TAB) 12.5 mg DAILY PO 08/21/16 09:00 09/20/16 08:59 08/21/16 07:34 12.5 MG Metoprolol Tartrate (Lopressor Tab) 25 mg BID PO 08/20/16 21:00 09/19/16 20:59 08/21/16 07:33 25 MG Multivitamins (Multivitamin Tab) 1 tab DAILY PO 08/21/16 09:00 09/20/16 08:59 08/21/16 07:33 1 TAB Potassium Chloride (Klor-Con M10) 10 meq DAILY PO 08/21/16 09:00 09/20/16 08:59 08/21/16 07:35 10 MEQ Insulin Aspart (novoLOG ASPART) SLIDING SCALE G... ACHS SC 08/20/16 21:00 09/19/16 20:59 08/21/16 12:13 7 UNITS Glucose (Glucose 40% Gel) 15-30 GRAMS 15 GRAMS... UD PRN PO 08/20/16 21:00 09/19/16 20:59 Glucose (Glucose Chew Tab) 4-8 Tablets 4 Tabl... UD PRN PO 08/20/16 21:00 09/19/16 20:59 Dextrose (Dextrose 50% 50ML Syringe) 25-50ML OF 50% DW IV FOR... UD PRN IV 08/20/16 21:00 09/19/16 20:59 Glucagon (Glucagon Inj) 1 mg UD PRN SQ 08/20/16 21:00 09/19/16 20:59 Heparin Sodium (Porcine) (Heparin Sq 5000 Unit/0.5ml) 5,000 unit Q12 SQ 08/21/16 09:00 09/20/16 08:59 08/21/16 07:36 5,000 UNIT Piperacillin Sod/ Tazobactam Sod 3.375 gm/Dextrose 115 ml @ 28.75 mls/ hr Q8H IV 08/21/16 06:00 08/31/16 05:59 08/21/16 13:09 28.75 MLS/HR Piperacillin Sod/ Tazobactam Sod (Consult) 1 ea UD PRN N/A 08/21/16 01:00 09/20/16 00:59 Daptomycin 325 mg/ Sodium Chloride 56.5 ml @ 100 mls/hr Q2D@0900 IV 08/23/16 09:00 08/30/16 23:59 Review of Systems Constitutional: No fever, No chills Eyes: No problem reported ENT: No problem reported Respiratory: No problem reported Cardiovascular: No problem reported Abdomen: No problem reported Musculoskeletal: + muscle pain, + swelling Genitourinary - Male: No problem reported Neurologic: No problem reported Psychiatric: No problem reported Endocrine: No problem reported Hematologic / Lymphatic: No problem reported Integumentary: + new/changing skin lesions Allergic / Immunologic: No problem reported Physical Exam Date Time Temp Pulse Resp B/P (MAP) Pulse Ox O2 Delivery O2 Flow Rate FiO2 08/21/16 12:03 97 Room Air 08/21/16 11:20 84 18 126/53 (77) 97 Room Air 08/21/16 08:00 97 Room Air 08/21/16 08:00 36.6 92 18 132/66 (88) 97 Room Air 08/21/16 04:02 36.5 109 18 130/68 (88) 97 Room Air 08/21/16 04:02 Room Air 08/21/16 00:00 Room Air 08/20/16 23:50 37.3 76 18 97/54 (68) 96 Room Air 08/20/16 20:00 Room Air 08/20/16 19:09 37.0 107 20 120/62 (81) 97 Room Air 08/20/16 18:00 37.3 98 18 146/60 95 Room Air 08/20/16 17:41 92 122/79 97 08/20/16 16:21 81 08/20/16 16:04 37.1 80 18 140/74 98 General Appearance: WD/WN, no apparent distress Head: normocephalic, atraumatic Eyes: normal inspection, EOMI, sclerae normal ENT: normal ENT inspection, pharynx normal Neck: supple, no adenopathy, thyroid normal, trachea midline Respiratory/Chest: chest non-tender, lungs clear, normal breath sounds, no respiratory distress Cardiovascular: no gallop, no murmur, + irregularly irregular Abdomen/GI: normal bowel sounds, non tender, soft, no organomegaly Back: normal inspection, no CVA tenderness Extremities/Musculoskelatal: no calf tenderness, + slow capillary refill, + pertinent finding (Left knees with effusion and decreased range of motion) Neurologic/Psych: alert, oriented x 3 Skin: no rash, + pertinent finding (Gangrenous tip left 3rd toe, erythema from the foot to the knee) Lymphatic: no adenopathy Laboratory Results Date/Time Source Procedure Growth Status 08/20/16 16:21 Blood Blood Culture Pending Received 08/20/16 16:18 Blood Blood Culture Pending Received Last 24 Hours Test 08/20/16 16:21 08/20/16 17:39 08/20/16 21:30 08/21/16 06:00 Lactic Acid Level 1.2 mmol/L Bedside Glucose 162 mg/dl Urine Color YELLOW Urine Appearance CLEAR Urine pH 5.0 Urine Specific [place] 1.016 Urine Protein 1+ Urine Glucose (UA) NEG Urine Ketones NEG Urine Occult Blood NEG Urine Nitrite NEG Urine Bilirubin NEG Urine Urobilinogen NEG Urine Leukocyte Esterase NEG Urine WBC (Auto) 1-5 /hpf Urine RBC (Auto) 0-4 /hpf Urine Hyaline Casts (Auto) 1-5 /lpf Urine Epithelial Cells (Auto) >30 /lpf Urine Bacteria (Auto) NEG Urine Renal Epithelial Cells 0-5 /lpf Sodium Level 137 mmol/L Potassium Level 3.6 mmol/L Chloride Level 101 mmol/L Carbon Dioxide Level 27 mmol/L Anion Gap 9.0 mmol/L Blood Urea Nitrogen 36 mg/dl Creatinine 2.00 mg/dl Est Creatinine Clear Calc Drug Dose 26.4 ml/min Estimated GFR () 33.5 Estimated GFR (Non- 28.9 BUN/Creatinine Ratio 19.0 Random Glucose 180 mg/dl Calcium Level 8.3 mg/dl Test 08/21/16 06:42 08/21/16 10:43 Bedside Glucose 189 mg/dl 242 mg/dl [~ rep ct add3]] LEFT FOOT MIN 3 VIEWS ROUTINE CLINICAL HISTORY: left foot infection, attention left third toe COMPARISON: None. DISCUSSION: There are subluxations at the level of the first and second metatarsal phalangeal joints. There are advanced degenerative changes the level of the first metatarsal phalangeal joint. No acute fractures are visualized. There is a pes planus deformity. There are vascular calcifications. There is no conventional radiographic evidence of osteomyelitis. IMPRESSION: 1. No acute fractures 2. No conventional radiographic evidence of acute osteomyelitis 3. Subluxations at the level the first and second metatarsal phalangeal joints. Electronically signed by: [place]oacano Christopher M.D. 08/20/2016 3:19 PM Dictated Date/Time: 08/20/2016 3:18 PM Assessment & Plan Cellulitis of the left foot and leg with gangrene of the left 3rd toe in a diabetic male with peripheral vascular disease. Suspect patient may need partial toe amputation, but need to reassess his vascular system prior to any surgical intervention. For now, combination of daptomycin and Zosyn appropriate pending further culture results. Discussed with Dr. Zarate. Will follow.
[2016-08-21] MEDS: INSULIN GLARGINE SOLOSTAR 100 UNITS/ML 3 ML PEN SC SCH (20:48)
--- NOTE | 2016-08-21 23:29 | Progress Note ---
Medicine Progress Note Date & Time of Visit: Aug 21, 2016 at 16:10 . Subjective No fever or chills. Neuropathic discomfort of feet. Left knee pain. No chest pain. No cough or shortness of breath. No nausea, vomiting, diarrhea. . Objective Last 8 Hrs Date Time Temp Pulse Resp B/P (MAP) Pulse Ox O2 Delivery O2 Flow Rate FiO2 08/21/16 23:25 37.0 100 16 120/66 (84) 97 Room Air 08/21/16 18:34 36.3 95 18 111/82 (92) 97 Room Air 08/21/16 18:08 36.8 98 20 95 08/21/16 16:21 36.8 98 20 107/47 (67) 95 Room Air 08/21/16 16:00 97 Room Air Physical Exam: General- no distress Neck- no JVD Lungs- clear Heart- irregular, 2/6 systolic murmur at base, no gallop appreciated Abdomen- normal bowel sounds, soft, nontender; no palpable masses or hepatosplenomegaly Extremities- LLE- left third toe darkened, bullous lesion plantar surface pedal pulses diminished capillary refill great toe 2 seconds trace pretibial edema moderate erythema from dorsum of foot extending to upper calf moderate effusion left knee without erythema or warmth RLE- status post amputation of right second toe pedal pulses diminished capillary refill toes 2 seconds no pretibial edema or calf tenderness Neuro- alert, oriented . Laboratory Results: Last 24 Hours Test 08/21/16 06:00 08/21/16 06:42 08/21/16 10:43 08/21/16 16:28 Sodium Level 137 mmol/L Potassium Level 3.6 mmol/L Chloride Level 101 mmol/L Carbon Dioxide Level 27 mmol/L Anion Gap 9.0 mmol/L Blood Urea Nitrogen 36 mg/dl Creatinine 2.00 mg/dl Est Creatinine Clear Calc Drug Dose 26.4 ml/min Estimated GFR () 33.5 Estimated GFR (Non- 28.9 BUN/Creatinine Ratio 19.0 Random Glucose 180 mg/dl Calcium Level 8.3 mg/dl Bedside Glucose 189 mg/dl 242 mg/dl 188 mg/dl Test 08/21/16 20:14 Bedside Glucose 182 mg/dl Assessment & Plan CELLULITIS LEFT FOOT AND LEG Presented with rapidly progressing cellulitis of left lower extremity, starting with left third toe. Plain films of foot did not reveal any apparent osteomyelitis. C-reactive protein 7.48. Lactic acid 1.2. Blood cultures obtained in ED. Received IV antibiotic coverage with vancomycin and ceftriaxone. Changed antibiotic coverage to daptomycin and piperacillin/tazobactam. ID consulted. Case discussed with General Surgery. They defer to Vascular Surgery- not available until Tuesday. LEFT KNEE EFFUSION Patient complaining of left knee pain and has a moderate left knee effusion without erythema or warmth. Underlying rheumatoid arthritis. Must consider possibility of septic arthritis. Consult Orthopedics. CORONARY ARTERY DISEASE No anginal symptoms. Continue aspirin, metoprolol. Hold statin due to therapy with daptomycin. ATRIAL FIBRILLATION / FLUTTER Chronic AF. On metoprolol for rate control. Anticoagulation discontinue by Cardiology due to epistaxis and unsteady gait. Continue aspirin and metoprolol. HYPERTENSION Continue metoprolol. Follow and titrate Rx. CKD III Baseline creatinine 1.6. Creatinine in ED 1.9. Serum creatinine today = 2. Hold furosemide. Avoid potential nephrotoxins when able. Follow. 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 Well-controlled at home. Random blood sugar in ED 200. Hgb A1C in clinic 7.0 on 06/30/16. Fasting blood sugar this morning = 189. Lantus + NovoLog per protocol during hospital stay. DYSLIPIDEMIA Hold simvastatin due to therapy with daptomycin. RHEUMATOID ARTHRITIS Hold methotrexate pending resolution of cellulitis. VTE PROPHYLAXIS Moderate risk for VTE. SQ heparin. RESUSCITATION STATUS Discussed with patient. He has a living will. He would not like resuscitation attempted in the event of a cardiopulmonary arrest; he prefers a natural passing without extraordinary interventions. Therefore, code status = "Level 5" (DNR). DISPOSITION To be determined. Family Medicine follow-up with Dr. Narvaez. Cardiology follow-up with Dr. Luis Stewart. Rheumatology follow-up with Dr. Bahena. Nephrology follow-up with Dr. Luo. Daughter visiting this afternoon and given update. . Consultants: [facility] Orthopedic Surgery . Procedures: cardiac monitoring IV meds . Current Inpatient Medications: Current Inpatient Medications Medications (Trade) Dose Ordered Sig/Rosemarie Route Start Time Stop Time Status Last Admin Dose Admin Acetaminophen (Tylenol Tab) 650 mg Q4H PRN PO 08/20/16 16:00 09/19/16 15:59 08/21/16 21:39 650 MG Aspirin (Ecotrin Tab) 81 mg QAM PO 08/21/16 09:00 09/20/16 08:59 08/21/16 07:34 81 MG Folic Acid (Folvite Tab) 1 mg QAM PO 08/21/16 09:00 09/20/16 08:59 08/21/16 07:34 1 MG Insulin Glargine (Lantus Solostar Pen) 15 unit QPM SC 08/20/16 21:00 09/19/16 20:59 08/21/16 20:48 15 UNIT Losartan Potassium (coZAAR TAB) 12.5 mg DAILY PO 08/21/16 09:00 09/20/16 08:59 08/21/16 07:34 12.5 MG Metoprolol Tartrate (Lopressor Tab) 25 mg BID PO 08/20/16 21:00 09/19/16 20:59 08/21/16 20:43 25 MG Multivitamins (Multivitamin Tab) 1 tab DAILY PO 08/21/16 09:00 09/20/16 08:59 08/21/16 07:33 1 TAB Potassium Chloride (Klor-Con M10) 10 meq DAILY PO 08/21/16 09:00 09/20/16 08:59 08/21/16 07:35 10 MEQ Insulin Aspart (novoLOG ASPART) SLIDING SCALE G... ACHS SC 08/20/16 21:00 09/19/16 20:59 08/21/16 20:47 2 UNITS Glucose (Glucose 40% Gel) 15-30 GRAMS 15 GRAMS... UD PRN PO 08/20/16 21:00 09/19/16 20:59 Glucose (Glucose Chew Tab) 4-8 Tablets 4 Tabl... UD PRN PO 08/20/16 21:00 09/19/16 20:59 Dextrose (Dextrose 50% 50ML Syringe) 25-50ML OF 50% DW IV FOR... UD PRN IV 08/20/16 21:00 09/19/16 20:59 Glucagon (Glucagon Inj) 1 mg UD PRN SQ 08/20/16 21:00 09/19/16 20:59 Heparin Sodium (Porcine) (Heparin Sq 5000 Unit/0.5ml) 5,000 unit Q12 SQ 08/21/16 09:00 09/20/16 08:59 08/21/16 20:48 5,000 UNIT Piperacillin Sod/ Tazobactam Sod 3.375 gm/Dextrose 115 ml @ 28.75 mls/ hr Q8H IV 08/21/16 06:00 08/31/16 05:59 08/21/16 21:34 28.75 MLS/HR Piperacillin Sod/ Tazobactam Sod (Consult) 1 ea UD PRN N/A 08/21/16 01:00 09/20/16 00:59 Daptomycin 325 mg/ Sodium Chloride 56.5 ml @ 100 mls/hr Q2D@0900 IV 08/23/16 09:00 08/30/16 23:59
[2016-08-21] MEDS ORDERED: HYDROmorphone INJ 1 MG/ML SYR IV ONE (23:58)
[2016-08-22 04:00] VITALS: BP_SYST 117; BP_SYST 121; BP_SYST 95; BP_DIAS 56; BP_DIAS 64; BP_DIAS 65; PULSE 78; PULSE 83; TEMP 36.7; TEMP 36.8; O2SAT 93; O2SAT 95; O2SAT 96
[2016-08-22] MEDS: PIPERACILL/TAZOBAC IV 3.375 GM in DEXTROSE 5% 100ML IV SCH ×3 (05:47→21:32)
--- NOTE | 2016-08-22 07:15 | DIAGNOSTIC IMAGING REPORT ---
ULTRASOUND LEFT LOWER EXTREMITY VENOUS CLINICAL HISTORY: Left leg pain and swelling. Cellulitis. COMPARISON STUDY: No priors. TECHNIQUE: Real-time, grayscale, and color Doppler sonography of the deep veins of the left lower extremity was performed from the inguinal crease to the calf. Compression and augmentation were utilized. FINDINGS: There is no sonographic evidence of deep venous thrombosis identified in the left lower extremity. The common femoral, superficial femoral, and popliteal veins are patent and normally compressible. The greater saphenous vein is not well-visualized and may be surgically absent. The profunda femoris vein at the junction with the common femoral vein is clear. The visualized calf veins are patent. Atherosclerotic plaque is noted in the left femoral artery. IMPRESSION: There is no sonographic evidence of deep venous thrombosis identified in the left lower extremity. Electronically signed by: Julian Hernández M.D. 08/22/2016 7:14 AM Dictated Date/Time: 08/22/2016 7:13 AM
[2016-08-22 07:30] VITALS: BP 117/64; PULSE 89; TEMP 36.5; O2SAT 97
[2016-08-22 08:02] LABS: BUN/CREATININE RATIO 18.8 (10-20); CALCIUM 8.2 mg/dl (8.5-10.1); CREATININE 2.1 mg/dl (0.60-1.40); POTASSIUM 3.5 mmol/L (3.5-5.1)
[2016-08-22] MEDS: ASPIRIN 81 MG ECTAB PO SCH (08:06)
[2016-08-22] MEDS: LOSARTAN POTASSIUM 25 MG TAB PO SCH (08:06)
[2016-08-22] MEDS: POTASSIUM CHLORIDE 10 MEQ TABCR PO SCH (08:06)
[2016-08-22] MEDS: METOPROLOL TARTRATE 25 MG TAB PO SCH ×2 (08:06→21:16)
[2016-08-22] MEDS: MULTIVITAMIN TAB PO SCH (08:06)
[2016-08-22] MEDS: INSULIN ASPART 100 UNITS/ML 3 ML PEN SC SCH ×4 (08:10→21:20)
[2016-08-22] MEDS: HEPARIN SOD 5000 UNIT/0.5 ML CARP SQ SCH ×2 (08:11→21:21)
[2016-08-22] MEDS ORDERED: LIDOCAINE HCL 1% 20 ML VIAL ONE (09:02)
--- NOTE | 2016-08-22 10:21 | DIAGNOSTIC IMAGING REPORT ---
LEFT KNEE 3 VIEWS CLINICAL HISTORY: Left knee pain. Cellulitis of the foot. FINDINGS: AP, crosstable lateral, and sunrise portable views of left knee are obtained. No prior studies are available for comparison at the time of dictation. The skeletal structures are osteopenic. No fracture is seen. There is mild to moderate tricompartmental degenerative joint space narrowing which is greatest in the medial and patellofemoral compartments. There are marginal osteophytes and patellar enthesophytes. A large joint effusion is identified. Bony overgrowth is seen from the anterior tibial tuberosity. Mild soft tissue swelling is present around the knee. There is advanced atherosclerotic calcification of the popliteal artery. Numerous surgical clips are present within the medial soft tissues. IMPRESSION: 1. Mild soft tissue swelling and large joint effusion. No acute bony abnormality is seen. 2. Osteopenia and arthritic change as above. 3. There is advanced atherosclerotic calcification of the popliteal artery. Electronically signed by: Julian Hernández M.D. 08/22/2016 10:20 AM Dictated Date/Time: 08/22/2016 10:19 AM
--- NOTE | 2016-08-22 12:44 | Medical Consult ---
Consultation Date of Consultation: Aug 22, 2016. Attending Physician: Seng Zarate M.D. Reason for Consultation: Left knee pain. History of Present Illness Chaz is a pleasant 86-year-old male who describes worsening left knee pain since coming to the hospital on August 20. He was admitted for cellulitis of the left lower extremity. He is having pain with range of motion and weightbearing. He denies any obvious injury. He has no pain with rest. He denies any mechanical symptoms of locking or catching. Past Medical/Surgical History Medical Problems: (1) Cellulitis of left leg Status: Acute (2) Left-sided epistaxis Status: Acute Diabetes type 2, diabetic neuropathy, foot ulcer. Aortic stenosis status post AVR. A. fib. Chronic kidney disease, stage III. PVD status post RLE bypass and right second toe amputation. HTN. Dyslipidemia. History of edematous polyps of the colon. Rheumatoid arthritis. Family History Cancer BROTHER SISTER Coronary artery disease FATHER Kidney disease BROTHER Social History Smoking Status: Former Smoker Alcohol Use: none Marital Status: Occupation Status: retired Allergies Coded Allergies: Lisinopril (Unverified Allergy, Unknown, COUGHING, 08/20/16) Current Inpatient Medications Current Inpatient Medications Medications (Trade) Dose Ordered Sig/Rosemarie Route Start Time Stop Time Status Last Admin Dose Admin Acetaminophen (Tylenol Tab) 650 mg Q4H PRN PO 08/20/16 16:00 09/19/16 15:59 08/21/16 21:39 650 MG Aspirin (Ecotrin Tab) 81 mg QAM PO 08/21/16 09:00 09/20/16 08:59 08/22/16 08:06 81 MG Folic Acid (Folvite Tab) 1 mg QAM PO 08/21/16 09:00 09/20/16 08:59 08/22/16 08:06 1 MG Insulin Glargine (Lantus Solostar Pen) 15 unit QPM SC 08/20/16 21:00 09/19/16 20:59 08/21/16 20:48 15 UNIT Losartan Potassium (coZAAR TAB) 12.5 mg DAILY PO 08/21/16 09:00 09/20/16 08:59 08/22/16 08:06 12.5 MG Metoprolol Tartrate (Lopressor Tab) 25 mg BID PO 08/20/16 21:00 09/19/16 20:59 08/22/16 08:06 25 MG Multivitamins (Multivitamin Tab) 1 tab DAILY PO 08/21/16 09:00 09/20/16 08:59 08/22/16 08:06 1 TAB Potassium Chloride (Klor-Con M10) 10 meq DAILY PO 08/21/16 09:00 09/20/16 08:59 08/22/16 08:06 10 MEQ Insulin Aspart (novoLOG ASPART) SLIDING SCALE G... ACHS SC 08/20/16 21:00 09/19/16 20:59 08/22/16 08:10 4 UNITS Glucose (Glucose 40% Gel) 15-30 GRAMS 15 GRAMS... UD PRN PO 08/20/16 21:00 09/19/16 20:59 Glucose (Glucose Chew Tab) 4-8 Tablets 4 Tabl... UD PRN PO 08/20/16 21:00 09/19/16 20:59 Dextrose (Dextrose 50% 50ML Syringe) 25-50ML OF 50% DW IV FOR... UD PRN IV 08/20/16 21:00 09/19/16 20:59 Glucagon (Glucagon Inj) 1 mg UD PRN SQ 08/20/16 21:00 09/19/16 20:59 Heparin Sodium (Porcine) (Heparin Sq 5000 Unit/0.5ml) 5,000 unit Q12 SQ 08/21/16 09:00 09/20/16 08:59 08/22/16 08:11 5,000 UNIT Piperacillin Sod/ Tazobactam Sod 3.375 gm/Dextrose 115 ml @ 28.75 mls/ hr Q8H IV 08/21/16 06:00 08/31/16 05:59 08/22/16 05:47 28.75 MLS/HR Piperacillin Sod/ Tazobactam Sod (Consult) 1 ea UD PRN N/A 08/21/16 01:00 09/20/16 00:59 Daptomycin 325 mg/ Sodium Chloride 56.5 ml @ 100 mls/hr Q2D@0900 IV 08/23/16 09:00 08/30/16 23:59 Hydromorphone HCl (Dilaudid Inj) 0.5 mg Q3H PRN IV 08/22/16 00:00 09/05/16 00:00 Oxycodone HCl (Roxicodone Immediate Rel Tab) 5 mg Q6H PRN PO 08/22/16 00:00 09/05/16 00:00 Review of Systems A 10-point review of systems is noted in the hospital medical record and is noncontributory. Physical Exam Date Time Temp Pulse Resp B/P (MAP) Pulse Ox O2 Delivery O2 Flow Rate FiO2 08/22/16 08:00 Room Air 08/22/16 07:30 36.5 89 16 117/64 (81) 97 Room Air 08/22/16 04:00 36.7 83 18 121/64 (83) 93 Room Air 08/22/16 04:00 36.8 78 18 95/56 (69) 95 Room Air 08/22/16 04:00 36.7 83 18 117/65 (82) 96 Room Air 08/22/16 00:00 Room Air 08/21/16 23:25 37.0 100 16 120/66 (84) 97 Room Air 08/21/16 18:34 36.3 95 18 111/82 (92) 97 Room Air 08/21/16 18:08 36.8 98 20 95 08/21/16 16:21 36.8 98 20 107/47 (67) 95 Room Air 08/21/16 16:00 97 Room Air Extremities/Musculoskelatal: + pertinent finding (Focusing on the patient's left lower extremity, 2+ DP pulse, sensation to light touch is diminished and unchanged, he is able to wiggle his toes up and down. Able to perform straight leg raise. + Medial joint line tenderness. - Blanche's. Ligamentous examination is limited to guarding and range of motion, but exhibits: Stable Andres, posterior drawer, varus and valgus stress at zero and 30. Range of motion 0-90. The third toe is very concerning for loss of vascularity as the skin at the tip and undersurface are black.) Skin: + pertinent finding (The dorsal aspect of the left foot and lower leg show erythema) Laboratory Results Last 24 Hours Test 08/21/16 16:28 08/21/16 20:14 08/22/16 06:57 08/22/16 07:31 Bedside Glucose 188 mg/dl 182 mg/dl 182 mg/dl Sodium Level 137 mmol/L Potassium Level 3.5 mmol/L Chloride Level 100 mmol/L Carbon Dioxide Level 28 mmol/L Anion Gap 9.0 mmol/L Blood Urea Nitrogen 39 mg/dl Creatinine 2.10 mg/dl Est Creatinine Clear Calc Drug Dose 25.1 ml/min Estimated GFR () 31.6 Estimated GFR (Non- 27.3 BUN/Creatinine Ratio 18.8 Random Glucose 163 mg/dl Calcium Level 8.2 mg/dl Test 08/22/16 12:00 RADIOGRAPHS: 3 views of the left knee, show no acute fracture or dislocation. There is evidence of calcification of the posterior vessels. He also has a noted effusion on the lateral. 3 views of the left foot again show calcifications of the vessels. There is no evidence of osteomyelitis. There is subluxations of the MCP joints and significant degenerative changes. Assessment & Plan IMPRESSION: 1) Left knee effusion. 2) Left third toe gangrene. 3) Lower leg cellulitis. PLAN: After a lengthy discussion with the patient regarding my above clinical findings, as well as reviewing his imaging, I expressed my concern regarding his left third toe and that he needed further vascular workup before proceeding with any treatment, and I would defer to vascular service. As for the cellulitis, he will continue with antibiotics per infectious disease. I recommended aspiration of the left knee to rule out infectious process and he understands that it could be related to rheumatoid arthritis or gout. The risks of the aspiration were discussed and included but not limited to: Infection, bleeding, nerve damage, continued pain, reaccumulation. He wished to proceed with the aspiration. He will ice and elevate and will be allowed to be weightbearing as tolerated. The aspirated fluid will be sent for cell count , Gram stain, cultures and sensitivities, and crystals. The patient understood all my instructions and explanation; all their questions were satisfactorily addressed. I will be out of town tomorrow and Dr. Marin will be covering for me if there are any immediate concerns. PROCEDURE: After obtaining consent and performing a time-out identifying the left knee for aspiration. The superolateral portal region was palpated and marked. This area was prepped with Betadine followed by alcohol wipe and then 3 cc of 1% lidocaine plain were used to anesthetize the skin. Once this had taken appropriate affect, using a spinal needle after re-prepping the knee with Betadine and alcohol, the knee joint was entered. 70 cc of yellow fluid was aspirated. It did not appear concerning for infection. 20 cc of the aspirate was sent to the lab for the above studies.
[2016-08-22 13:01] LABS: SYNOVIAL FLUID APPEARANCE CLOUDY; SYNOVIAL FLUID COLOR YELLOW
[2016-08-22 13:02] LABS: SYNOVIAL FLUID MONONUC RELAT 9.1 %; SYNOVIAL FLUID POLYNUC RELAT 90.9 %
--- NOTE | 2016-08-22 13:23 | DIAGNOSTIC IMAGING REPORT ---
ULTRASOUND LEFT LOWER EXTREMITY ARTERIAL CLINICAL HISTORY: Cellulitis. Peripheral vascular disease. COMPARISON STUDY: No priors. TECHNIQUE: Real-time, grayscale, and color Doppler sonography of the arteries of the left lower extremity is performed from the inguinal crease to the foot. The patient was unable to tolerate ankle-brachial index assessment. FINDINGS: There is advanced atherosclerotic plaque with heavy calcification seen throughout the arteries of the left lower extremity. This degrades the examination. There are biphasic to triphasic arterial waveforms seen in the left common femoral artery with velocities measuring up to 132 cm/s. The left profundus femoris artery is patent with velocities measuring up to 151 cm/s. There are monophasic arterial waveforms seen in the proximal left superficial femoral artery with velocities measuring up to 29 cm/s. Monophasic waveforms are seen in the mid superficial femoral artery with velocities measuring up to 69 cm/s. There is likely occlusion of the mid to distal left superficial femoral artery with reconstitution in the popliteal artery. The popliteal artery appears patent with monophasic waveforms which demonstrate a blunted arterial upstroke. Velocities in the popliteal artery measure up to 57 cm/s. The left anterior tibial artery is not visualized and presumed occluded. There is flow seen within portions of the posterior tibial artery with velocities measuring up to 20 cm/s. The distal posterior tibial artery may be occluded. The peroneal artery appears patent with velocities measuring up to 53 cm/s. The dorsalis pedis artery is patent with monophasic flow and velocities measuring up to 30 cm/s. IMPRESSION: 1. There is advanced atherosclerotic plaque with heavy shadowing calcifications. This degrades the examination. 2. Peripheral vascular disease with abnormal arterial waveforms, and parvus et tardus waveforms seen in the popliteal artery and calf vessels. 3. Findings suggest occlusion of the mid to distal left superficial femoral artery with reconstitution in the popliteal artery. 4. No flow is identified within the anterior tibial artery which is presumed occluded. 5. There is likely occlusion of the distal posterior tibial artery. 6. The patient could not tolerate ankle-brachial index assessment. Electronically signed by: Julian Hernández M.D. 08/22/2016 1:21 PM Dictated Date/Time: 08/22/2016 7:14 AM
[2016-08-22] MEDS: OXYCODONE HCL IR 5 MG TAB (IMMEDIATE RELEASE) PO PRN ×2 (15:12→21:39)
[2016-08-22 15:22] VITALS: BP 131/53; PULSE 98; TEMP 37.1; O2SAT 95
--- NOTE | 2016-08-22 19:47 | Progress Note ---
Medicine Progress Note Date & Time of Visit: Aug 22, 2016 at ~ 15:00 . Subjective Discomfort of left foot improved. Left knee aspirated by Orthopedics and feels better. No fever. No chest pain. No cough or shortness of breath. No nausea, vomiting, diarrhea. Daughter visiting. . Objective Last 8 Hrs Date Time Temp Pulse Resp B/P (MAP) Pulse Ox O2 Delivery O2 Flow Rate FiO2 08/22/16 16:00 Room Air 08/22/16 15:22 37.1 98 20 131/53 (79) 95 Room Air Physical Exam: General- sitting in chair, no distress Neck- no JVD Lungs- clear Heart- irregular, 2/6 systolic murmur at base, no gallop appreciated Abdomen- normal bowel sounds, soft, nontender; no palpable masses or hepatosplenomegaly Extremities- LLE- left foot bandaged trace pretibial edema moderate erythema extending to upper calf The bandaged RLE- no pretibial edema or calf tenderness Neuro- alert, oriented . Laboratory Results: Last 24 Hours Test 08/21/16 20:14 08/22/16 06:57 08/22/16 07:31 08/22/16 12:00 Bedside Glucose 182 mg/dl 182 mg/dl Sodium Level 137 mmol/L Potassium Level 3.5 mmol/L Chloride Level 100 mmol/L Carbon Dioxide Level 28 mmol/L Anion Gap 9.0 mmol/L Blood Urea Nitrogen 39 mg/dl Creatinine 2.10 mg/dl Est Creatinine Clear Calc Drug Dose 25.1 ml/min Estimated GFR () 31.6 Estimated GFR (Non- 27.3 BUN/Creatinine Ratio 18.8 Random Glucose 163 mg/dl Calcium Level 8.2 mg/dl Synovial Fluid Source KNEE Synovial Fluid Color YELLOW Synovial Fluid Appearance CLOUDY Synovial Fluid WBC 316457 /uL Synovial Fluid RBC 5000 /uL Synovial Fluid Polynuclear WBCs % 90.9 % Synovial Fluid Mononuclear WBCs % 9.1 % Test 08/22/16 12:28 08/22/16 16:17 Bedside Glucose 206 mg/dl 293 mg/dl Date/Time Source Procedure Growth Status 08/22/16 12:00 Joint Fluid/Space (Synovial) Knee Left Gram Stain - Final Resulted 08/22/16 12:00 Joint Fluid/Space (Synovial) Knee Left Bacterial Culture Pending Resulted Assessment & Plan CELLULITIS LEFT FOOT AND LEG Presented with rapidly progressing cellulitis of left lower extremity, starting with left third toe. Plain films of foot did not reveal any apparent osteomyelitis. C-reactive protein 7.48. Lactic acid 1.2. Blood cultures obtained in ED. Received IV antibiotic coverage with vancomycin and ceftriaxone. Changed antibiotic coverage to daptomycin and piperacillin/tazobactam. ID consulted. Case discussed with General Surgery. They defer management to Vascular Surgery. LEFT KNEE EFFUSION Patient complaining of left knee pain and has a moderate left knee effusion without erythema or warmth. Underlying rheumatoid arthritis. Must consider possibility of septic arthritis. Orthopedics and knee aspirated. CORONARY ARTERY DISEASE No anginal symptoms. Continue aspirin, metoprolol. Hold statin due to therapy with daptomycin. ATRIAL FIBRILLATION / FLUTTER Chronic AF. On metoprolol for rate control. Anticoagulation discontinue by Cardiology due to epistaxis and unsteady gait. Continue aspirin and metoprolol. HYPERTENSION Continue metoprolol. Follow and titrate Rx. CKD III Baseline creatinine 1.6. Creatinine in ED 1.9. Serum creatinine today = 2.1. Hold furosemide. Avoid potential nephrotoxins when able. Follow. 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 Well-controlled at home. Random blood sugar in ED 200. Hgb A1C in clinic 7.0 on 06/30/16. Fasting blood sugar this morning = 182. Lantus + NovoLog per protocol during hospital stay. DYSLIPIDEMIA Hold simvastatin due to therapy with daptomycin. RHEUMATOID ARTHRITIS Hold methotrexate pending resolution of cellulitis. VTE PROPHYLAXIS Moderate risk for VTE. SQ heparin. RESUSCITATION STATUS Discussed with patient. He has a living will. He would not like resuscitation attempted in the event of a cardiopulmonary arrest; he prefers a natural passing without extraordinary interventions. Therefore, code status = "Level 5" (DNR). DISPOSITION To be determined. Family Medicine follow-up with Dr. Narvaez. Cardiology follow-up with Dr. Luis Stewart. Rheumatology follow-up with Dr. Bahena. Nephrology follow-up with Dr. Luo. Daughter visiting this afternoon and given update. . Consultants: [facility] Orthopedic Surgery . Procedures: cardiac monitoring IV meds . Current Inpatient Medications: Current Inpatient Medications Medications (Trade) Dose Ordered Sig/Rosemarie Route Start Time Stop Time Status Last Admin Dose Admin Acetaminophen (Tylenol Tab) 650 mg Q4H PRN PO 08/20/16 16:00 09/19/16 15:59 08/21/16 21:39 650 MG Aspirin (Ecotrin Tab) 81 mg QAM PO 08/21/16 09:00 09/20/16 08:59 08/22/16 08:06 81 MG Folic Acid (Folvite Tab) 1 mg QAM PO 08/21/16 09:00 09/20/16 08:59 08/22/16 08:06 1 MG Insulin Glargine (Lantus Solostar Pen) 15 unit QPM SC 08/20/16 21:00 09/19/16 20:59 08/21/16 20:48 15 UNIT Losartan Potassium (coZAAR TAB) 12.5 mg DAILY PO 08/21/16 09:00 09/20/16 08:59 08/22/16 08:06 12.5 MG Metoprolol Tartrate (Lopressor Tab) 25 mg BID PO 08/20/16 21:00 09/19/16 20:59 08/22/16 08:06 25 MG Multivitamins (Multivitamin Tab) 1 tab DAILY PO 08/21/16 09:00 09/20/16 08:59 08/22/16 08:06 1 TAB Potassium Chloride (Klor-Con M10) 10 meq DAILY PO 08/21/16 09:00 09/20/16 08:59 08/22/16 08:06 10 MEQ Insulin Aspart (novoLOG ASPART) SLIDING SCALE G... ACHS SC 08/20/16 21:00 09/19/16 20:59 08/22/16 17:21 9 UNITS Glucose (Glucose 40% Gel) 15-30 GRAMS 15 GRAMS... UD PRN PO 08/20/16 21:00 09/19/16 20:59 Glucose (Glucose Chew Tab) 4-8 Tablets 4 Tabl... UD PRN PO 08/20/16 21:00 09/19/16 20:59 Dextrose (Dextrose 50% 50ML Syringe) 25-50ML OF 50% DW IV FOR... UD PRN IV 08/20/16 21:00 09/19/16 20:59 Glucagon (Glucagon Inj) 1 mg UD PRN SQ 08/20/16 21:00 09/19/16 20:59 Heparin Sodium (Porcine) (Heparin Sq 5000 Unit/0.5ml) 5,000 unit Q12 SQ 08/21/16 09:00 09/20/16 08:59 08/22/16 08:11 5,000 UNIT Piperacillin Sod/ Tazobactam Sod 3.375 gm/Dextrose 115 ml @ 28.75 mls/ hr Q8H IV 08/21/16 06:00 08/31/16 05:59 08/22/16 13:50 28.75 MLS/HR Piperacillin Sod/ Tazobactam Sod (Consult) 1 ea UD PRN N/A 08/21/16 01:00 09/20/16 00:59 Daptomycin 325 mg/ Sodium Chloride 56.5 ml @ 100 mls/hr Q2D@0900 IV 08/23/16 09:00 08/30/16 23:59 Hydromorphone HCl (Dilaudid Inj) 0.5 mg Q3H PRN IV 08/22/16 00:00 09/05/16 00:00 Oxycodone HCl (Roxicodone Immediate Rel Tab) 5 mg Q6H PRN PO 08/22/16 00:00 09/05/16 00:00 08/22/16 15:12 5 MG
[2016-08-22] MEDS: INSULIN GLARGINE SOLOSTAR 100 UNITS/ML 3 ML PEN SC SCH (21:21)
[2016-08-22 22:45] VITALS: BP 123/69; PULSE 112; TEMP 36.8; O2SAT 92
[2016-08-23] MEDS: PIPERACILL/TAZOBAC IV 3.375 GM in DEXTROSE 5% 100ML IV SCH ×3 (05:36→21:47)
[2016-08-23 07:38] LABS: HEMATOCRIT 29.1 % (42-52); MEAN CELL VOLUME 91.8 fL (80-100); MEAN CORPUSCULAR HEMOGLOBIN 29.7 pg (25-34); MEAN CORPUSCULAR HGB CONC 32.3 g/dl (32-36); MEAN PLATELET VOLUME 10.1 fL (7.4-10.4); PLATELET COUNT 142 K/uL (130-400); RED BLOOD COUNT 3.17 M/uL (4.7-6.1)
[2016-08-23 07:41] VITALS: BP 96/59; PULSE 100; TEMP 36.6; O2SAT 98
[2016-08-23 08:03] LABS: BUN/CREATININE RATIO 18.4 (10-20); CALCIUM 8.6 mg/dl (8.5-10.1); CREATININE 2.4 mg/dl (0.60-1.40); POTASSIUM 3.8 mmol/L (3.5-5.1)
[2016-08-23] MEDS ORDERED: DAPTOmycin IV 325 MG in SODIUM CHLORIDE 0.9% 50ML 50 ML IV SCH (09:00)
[2016-08-23] MEDS: METOPROLOL TARTRATE 25 MG TAB PO SCH ×2 (09:00→21:39)
[2016-08-23] MEDS: MULTIVITAMIN TAB PO SCH (09:06)
[2016-08-23] MEDS: POTASSIUM CHLORIDE 10 MEQ TABCR PO SCH (09:07)
[2016-08-23] MEDS: LOSARTAN POTASSIUM 25 MG TAB PO SCH (09:07)
[2016-08-23] MEDS: ASPIRIN 81 MG ECTAB PO SCH (09:07)
[2016-08-23] MEDS: INSULIN ASPART 100 UNITS/ML 3 ML PEN SC SCH ×4 (09:08→21:45)
--- NOTE | 2016-08-23 10:12 | Infectious Disease Progress Nt ---
Progress Note Date of Service Aug 23, 2016. Subjective Pt evaluation today including: conversation w/ patient, physical exam, chart review, lab review, review of studies, conversation w/ rewards consultant, review of inpatient medication list C/O severe pain in left knee, worse with any motion or palpation. Aspirate performed and c/w infection. Possible surgical washout tomorrow. Remains afebrile. Cultures negative thus far. All Other Systems: Reviewed and Negative Medications Current Inpatient Medications Medications (Trade) Dose Ordered Sig/Rosemarie Route Start Time Stop Time Status Last Admin Dose Admin Acetaminophen (Tylenol Tab) 650 mg Q4H PRN PO 08/20/16 16:00 09/19/16 15:59 08/21/16 21:39 650 MG Aspirin (Ecotrin Tab) 81 mg QAM PO 08/21/16 09:00 09/20/16 08:59 08/23/16 09:07 81 MG Folic Acid (Folvite Tab) 1 mg QAM PO 08/21/16 09:00 09/20/16 08:59 08/23/16 09:07 1 MG Losartan Potassium (coZAAR TAB) 12.5 mg DAILY PO 08/21/16 09:00 09/20/16 08:59 08/23/16 09:07 12.5 MG Metoprolol Tartrate (Lopressor Tab) 25 mg BID PO 08/20/16 21:00 09/19/16 20:59 08/22/16 21:16 25 MG Multivitamins (Multivitamin Tab) 1 tab DAILY PO 08/21/16 09:00 09/20/16 08:59 08/23/16 09:06 1 TAB Potassium Chloride (Klor-Con M10) 10 meq DAILY PO 08/21/16 09:00 09/20/16 08:59 08/23/16 09:07 10 MEQ Insulin Aspart (novoLOG ASPART) SLIDING SCALE G... ACHS SC 08/20/16 21:00 09/19/16 20:59 08/23/16 09:08 3 UNITS Glucose (Glucose 40% Gel) 15-30 GRAMS 15 GRAMS... UD PRN PO 08/20/16 21:00 09/19/16 20:59 Glucose (Glucose Chew Tab) 4-8 Tablets 4 Tabl... UD PRN PO 08/20/16 21:00 09/19/16 20:59 Dextrose (Dextrose 50% 50ML Syringe) 25-50ML OF 50% DW IV FOR... UD PRN IV 08/20/16 21:00 09/19/16 20:59 Glucagon (Glucagon Inj) 1 mg UD PRN SQ 08/20/16 21:00 09/19/16 20:59 Heparin Sodium (Porcine) (Heparin Sq 5000 Unit/0.5ml) 5,000 unit Q12 SQ 08/21/16 09:00 09/20/16 08:59 Future Hold 08/22/16 21:21 5,000 UNIT Piperacillin Sod/ Tazobactam Sod 3.375 gm/Dextrose 115 ml @ 28.75 mls/ hr Q8H IV 08/21/16 06:00 08/31/16 05:59 08/23/16 05:36 28.75 MLS/HR Piperacillin Sod/ Tazobactam Sod (Consult) 1 ea UD PRN N/A 08/21/16 01:00 09/20/16 00:59 Daptomycin 325 mg/ Sodium Chloride 56.5 ml @ 100 mls/hr Q2D@0900 IV 08/23/16 09:00 08/30/16 23:59 08/23/16 09:06 100 MLS/HR Hydromorphone HCl (Dilaudid Inj) 0.5 mg Q3H PRN IV 08/22/16 00:00 09/05/16 00:00 Oxycodone HCl (Roxicodone Immediate Rel Tab) 5 mg Q6H PRN PO 08/22/16 00:00 09/05/16 00:00 08/22/16 21:39 5 MG Insulin Glargine (Lantus Solostar Pen) 20 unit HS SC 08/22/16 21:00 09/21/16 20:59 08/22/16 21:21 20 UNIT Objective Vital Signs Date Time Temp Pulse Resp B/P (MAP) Pulse Ox O2 Delivery O2 Flow Rate FiO2 08/23/16 07:41 36.6 100 18 96/59 (71) 98 Room Air 08/23/16 00:00 Room Air 08/22/16 22:45 36.8 112 16 123/69 (87) 92 Room Air 08/22/16 16:00 Room Air 08/22/16 15:22 37.1 98 20 131/53 (79) 95 Room Air Physical Exam General Appearance: WD/WN, no apparent distress Eyes: normal inspection, EOMI, sclerae normal ENT: normal ENT inspection, pharynx normal Neck: supple, no adenopathy, trachea midline Respiratory/Chest: chest non-tender, lungs clear, normal breath sounds, no respiratory distress Cardiovascular: regular rate, rhythm, no gallop, no murmur Abdomen: normal bowel sounds, non tender, soft, no organomegaly Extremities: non-tender, no calf tenderness, + inflammation, + swelling, + pertinent finding (left knee swelling) Neurologic/Psychiatric: alert, oriented x 3 Skin: normal color, + pertinent finding (left leg and foot cellulitis) Laboratory Results Date/Time Source Procedure Growth Status 08/22/16 12:00 Joint Fluid/Space (Synovial) Knee Left Gram Stain - Final Resulted 08/22/16 12:00 Joint Fluid/Space (Synovial) Knee Left Bacterial Culture Pending Resulted Last 24 Hours Test 08/22/16 12:00 08/22/16 12:28 08/22/16 16:17 08/22/16 19:46 Synovial Fluid Source KNEE Synovial Fluid Color YELLOW Synovial Fluid Appearance CLOUDY Synovial Fluid WBC 753126 /uL Synovial Fluid RBC 5000 /uL Synovial Fluid Polynuclear WBCs % 90.9 % Synovial Fluid Mononuclear WBCs % 9.1 % Synovial Fluid Crystals Bedside Glucose 206 mg/dl 293 mg/dl 293 mg/dl Test 08/23/16 07:07 08/23/16 07:29 White Blood Count 8.20 K/uL Red Blood Count 3.17 M/uL Hemoglobin 9.4 g/dL Hematocrit 29.1 % Mean Corpuscular Volume 91.8 fL Mean Corpuscular Hemoglobin 29.7 pg Mean Corpuscular Hemoglobin Concent 32.3 g/dl RDW Standard Deviation 54.9 fL RDW Coefficient of Variation 16.3 % Platelet Count 142 K/uL Mean Platelet Volume 10.1 fL Sodium Level 136 mmol/L Potassium Level 3.8 mmol/L Chloride Level 99 mmol/L Carbon Dioxide Level 26 mmol/L Anion Gap 11.0 mmol/L Blood Urea Nitrogen 44 mg/dl Creatinine 2.40 mg/dl Est Creatinine Clear Calc Drug Dose 22.0 ml/min Estimated GFR () 26.9 Estimated GFR (Non- 23.2 BUN/Creatinine Ratio 18.4 Random Glucose 161 mg/dl Calcium Level 8.6 mg/dl Bedside Glucose 188 mg/dl Patient Name: MIGUEL GAFFNEY Unit Number: [id number] Dictated: 08/22/161018 Transcribed: 08/22/161018 EV Printed Date/Time: [~ rep prt dt]/[~ rep prt tm] [~ rep ct labl] - [~ rep ct ivnm] [facility] Radiology Department [place] [id number] Dictated: 08/22/161018 Transcribed: 08/22/16 101 EV Printed Date/Time: [~ rep prt dt]/[~ rep prt tm] [~ rep ct labl] - [~ rep ct ivnm] LEFT KNEE 3 VIEWS CLINICAL HISTORY: Left knee pain. Cellulitis of the foot. FINDINGS: AP, crosstable lateral, and sunrise portable views of left knee are obtained. No prior studies are available for comparison at the time of dictation. The skeletal structures are osteopenic. No fracture is seen. There is mild to moderate tricompartmental degenerative joint space narrowing which is greatest in the medial and patellofemoral compartments. There are marginal osteophytes and patellar enthesophytes. A large joint effusion is identified. Bony overgrowth is seen from the anterior tibial tuberosity. Mild soft tissue swelling is present around the knee. There is advanced atherosclerotic calcification of the popliteal artery. Numerous surgical clips are present within the medial soft tissues. IMPRESSION: 1. Mild soft tissue swelling and large joint effusion. No acute bony abnormality is seen. 2. Osteopenia and arthritic change as above. 3. There is advanced atherosclerotic calcification of the popliteal artery. Electronically signed by: Julian Hernández M.D. 08/22/2016 10:20 AM Dictated Date/Time: 08/22/2016 10:19 AM The status of this report is Signed. Draft = Not yet reviewed or approved by Radiologist. Signed = Reviewed and approved by Radiologist. <AttendingPhy>Seng Zarate M.D.</AttendingPhy> <FamilyPhy>Seng Narvaez III, M.D.</FamilyPhy> <PrimaryPhy>Seng Narvaez III, M.D.</PrimaryPhy> <UnitNumber> [id number]</UnitNumber> <VisitNumber>[id number]</VisitNumber> <PatientName> MIGUEL GAFFNEY</PatientName> <DateOfBirth>1930</DateOfBirth> <Location> [facility]</Location> <ServiceDate>08/20/16</ServiceDate> <MNE>ESINDI</MNE> < OrderingPhy>Irvin Garcia MD</OrderingPhy> <OrderingPhyMNE>f rep ord dr varela</ OrderingPhyMNE> <DictatingPhyMNE>f rep dict dr varela</DictatingPhyMNE> <CCListMNE> f rep ct mne</CCListMNE> <AdmittingPhyMNE>f pt admit dr varela</AdmittingPhyMNE> < AttendingPhyMNE>f pt attend dr varela</AttendingPhyMNE> <ConsultingPhyMNE>f pt consult dr varela</ConsultingPhyMNE> <FamilyPhyMNE>f pt fam dr varela</FamilyPhyMNE> <OtherPhyMNE>f pt other dr vaerla</OtherPhyMNE> < PrimaryPhyMNE>f pt prim care dr varela</PrimaryPhyMNE> <ReferringPhyMNE>f pt referring dr varela</ReferringPhyMNE> Assessment and Plan Cellulitis of the left foot and leg with gangrene of the left 3rd toe and now probable septic arthritis left knee in a diabetic male with peripheral vascular disease. Suspect patient may need partial toe amputation, but need to reassess his vascular system prior to any surgical intervention. Will also likely need arthroscopy. Will continue daptomycin and Zosyn for now. Will follow.
[2016-08-23] MEDS ORDERED: SODIUM CHLORIDE 0.9% 500ML 500 ML IV SCH (10:15)
--- NOTE | 2016-08-23 10:25 | PROGRESS NOTE ---
DATE: 08/23/2016 I am following up a consultation on Mr. Flores initially begun by Dr. Garcia. I have assumed care from Dr. Garcia and have discussed the care of this patient with him. Mr. Flores has an approximate one-week history of discoloration; left foot, second toe. He has a two-day history of increased left knee pain. There is no history of injury. The left knee is very painful. It felt better after it was aspirated yesterday. He has difficulty bearing weight because of pain. He is afebrile. His vital signs are stable. White count is 8, hematocrit is 29, platelets 142, BUN 44 and creatinine 2.4. Mr. 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 He has atrial fibrillation. ALLERGIES: TO LISINOPRIL. I have reviewed his medications. His methotrexate has been held. He is on insulin. I held his heparin this morning. He has been made n.p.o. He does not have a history of gout. His knee radiographs show extensive calcifications of the vasculature. There is mild degenerative change in the medial compartment of his nonweightbearing radiograph. There is no acute fracture. He does have an effusion noted. There is no dislocation. Foot films show dislocation/subluxation of the metatarsophalangeal joints of probably the first 3 digits. There is no evidence of osteomyelitis or bone destruction. There is severe arthritis of the first metatarsophalangeal joint. There is no fracture noted. Vascular calcifications are present along with flattening of the longitudinal arch of the foot. On exam, he has a petechial discoloration involving the lower leg and dorsum of the foot. There is a dusky area in the central forefoot. He has diminished sensation in both of his feet. I do not see much in the way of true erythema. He does have 1-2+ edema of the left leg. He can flex and extend the ankle and toes with a half grade weakness in dorsiflexion and a full grade weakness in plantarflexion. His Achilles appears to be okay. He has a black discoloration involving the distal 2/3 to 3/4 of the left third toe. The adjacent toes appear to be without evidence of vascular compromise. There is a slight bit of bloody drainage from the area. Pedal pulses are not palpable. His capillary refill on the other digits appears to be 2-3 seconds. He does not have any mottling present of the lesser toes, but there is some darkish discoloration and petechial discoloration on the central forefoot. He can only bend his knee from about 10-30 degrees. He holds the knee in a slightly flexed posture. He can do a leg raise. There is no tenderness to palpation except for the knee. He has tenderness throughout the knee; suprapatellar pouch, lateral and especially medially. The knee is slightly warm, but not erythematous and not indurated. He does have a moderate left knee effusion. Collateral laxity in mid position appears to be intact. Andres grossly negative. Cannot assess posterior drawer. Logrolling elicits no hip pain. IMPRESSION: Multiple medical problems including diabetes, peripheral vascular disease, rheumatoid arthritis, left foot third toe gangrene likely secondary to vascular compromise. His ultrasound did not show any evidence of DVT. ABIs could not be obtained. The arterial ultrasound showed extensive disease, occlusion of the distal posterior tibial artery, occlusion of the anterior tibial artery, occlusion of the distal left SFA with popliteal reconstitution. Left knee effusion. PLAN: The patient needs a vascular evaluation of his left lower extremity to help determine further treatment. In regards to his left knee, he has effusion. His sed rate is 50, his C-reactive protein is 7.5. The fluid analysis showed 106,000 white blood cells, 90% polys, culture pending, crystals pending. The suspicion is that he may have a septic left knee joint. It could also be something like gout or pseudogout. He may not have much of an immune response due to his diabetes and rheumatoid arthritis. He does not appear to be on any kind of chronic steroid therapy. I discussed the patient's situation and will follow his cultures today; if they turn positive I have recommended an arthroscopic irrigation and debridement of his left knee which we could do later today. I have held his heparin. The case has been added to the OR schedule and a consent has been obtained. He has also been made n.p.o. except for medications. We will await vascular consultation. I would continue the patient on his present broad spectrum antibiotics, daptomycin and Zosyn. Hold the methotrexate. Thank you for the consultation. KAYCEE
--- NOTE | 2016-08-23 11:28 | Surgery Consultation ---
Consultation Date of Service Aug 23, 2016. (Mechelle Mccain M.D.) Chief Complaint Left leg pain (Mechelle Mccain M.D.) History of Present Illness Mr. Herrera is a 86 year old male with Hx of Afib, S/P AVR, DM, HTN, CKD, arthritis, GERD, anemia, cerebrovascular disease, PAD with S/P right fem-DP bypass [address] Bob (known to be occluded), BLE claudication who is being seen in consultation for evaluation of his LLE peripheral vascular disease. The patient is currently admitted to the medicine service for management of left knee pain, and left leg cellulitis surrounding a left 3rd toe non-healing wound. The patient had his toenails trimmed several days ago by Podiatry and then developed redness and swelling of his left 3rd toe. This progressed up his leg and knee. He was admitted to the hospital and placed on daptomycin and Zosyn. He is complaining of left knee pain that is worse with movement. He also says that he has cramping of his calves with ambulation. He is only able to walk less than half a block before experiencing pain. This improves with resting for several minutes. He was previously seen by Dr. Bob at [facility] 2003. He developed gangrene of the right second toe requiring amputation. This did not heal and he underwent a right fem-DP bypass which has since occluded. (Mechelle Mccain M.D.) Vitals Vital Signs Past 12 Hours Date Time Temp Pulse Resp B/P (MAP) Pulse Ox O2 Delivery O2 Flow Rate FiO2 08/23/16 07:41 36.6 100 18 96/59 (71) 98 Room Air 08/23/16 00:00 Room Air (Mechelle Mccain M.D.) Allergies Coded Allergies: Lisinopril (Unverified Allergy, Unknown, COUGHING, 08/20/16) Home Medications Scheduled Aspirin Enteric Coated (Ecotrin Or Generic), 81 MG PO QAM Cholecalciferol (Vitamin D), 2,000 UNIT PO QAM Daptomycin (Daptomycin), 500 MG IV Q2D Ertapenem Sodium (Invanz), 1 GM IV DAILY Folic Acid (Folic Acid), 1 MG PO QAM Furosemide (Furosemide), 40 MG PO DAILY Insulin Glargine (Lantus), 15 UNITS SC QPM Insulin Human Regular (Novolin R), 15 UNITS SQ DAILYBB Insulin Human Regular (Novolin R), 12 UNITS SQ DAILYBL Insulin Human Regular (Novolin R), 20 UNITS SQ DAILYBD Metoprolol Tartrate (Lopressor) (Lopressor), 25 MG PO BID Multivitamin (Multivitamin), 1 TAB PO DAILY Potassium Chloride (Micro-K Ext Rel), 10 MEQ PO DAILY Scheduled PRN Oxycodone HCl (Oxycodone HCl), 5 MG PO Q6H PRN for moderately severe pain Problem List Medical Problems: (1) Aortic stenosis (2) Atrial fibrillation (3) Carotid arterial disease (4) CKD (chronic kidney disease), stage III (5) Diabetes mellitus, type 2 (6) Diabetic peripheral neuropathy associated with type 2 diabetes mellitus (7) Dyslipidemia (8) History of adenomatous polyp of colon (9) History of diabetic ulcer of foot (10) Hypertension (11) Peripheral vascular disease (12) Rheumatoid arthritis Surgical Problems: (1) Status post amputation of toe of right foot (2) Status post aortic valve replacement with bioprosthetic valve (3) Status post cardiac catheterization (4) Status post cataract extraction (5) Status post cholecystectomy (6) Status post coronary artery bypass grafting (Mechelle Mccain M.D.) Surgical / Medical History Hx Cardiac Surgery: Yes (BYPASS SURGERY) Hx Abdominal Surgery: Yes (ANAID) Hx Cancer Surgery: Yes (SKIN CANCER REMOVED/BIOPSIES) Hx Thoracic Surgery: No Hx Orthopedic: Yes (TOE AMPUTATION- R FOOT 2ND TOE) Hx Urinary Tract Surgery: No Past Medical/Surgical History: Other (Right Fem-DP bypass) (Mechelle Mccain M.D.) Family History Cancer BROTHER SISTER Coronary artery disease FATHER Kidney disease BROTHER (Mechelle Mccain M.D.) Cancer BROTHER SISTER Coronary artery disease FATHER Kidney disease BROTHER (Baldo Jefferson M.D.) Social History Smoking Status: Former Smoker Hx Tobacco Use In Past Year?: No Hx Alcohol Use - Type & Amnt: No Hx Substance Use -Type & Amnt: No (Mechelle Mccain M.D.) Review of Systems Constitutional: No chills, No fever Skin: + change in color Eyes: No visual changes ENMT: No nasal congestion Respiratory: No cough Cardiovascular: No chest pain Gastrointestinal: No abdominal pain, No diarrhea, No nausea, No vomiting Musculoskeletal: + joint swelling, + muscle pain, No back pain Neurologic: No headache Psychiatric: No depression (Mechelle Mccain M.D.) Physical Exam Constitutional: General Apperance: heathly-appearing Level of Distress: NAD Ambulation: limited ambulation Head: normocephalic, atraumatic ENMT: normal ENT inspection Neck: supple, trachea midline Lungs: Respiratory effort: no dyspnea Peripheral Pulses: Femoral Pulse: normal on the right, decreased on the left Posterior Tibialis Pulse: absent on the left, absent on the right Dorsalis Pedis Pulse: absent on the left, absent on the right Abdomen: Inspection & Palpation: soft, non-distended, no tenderness, guarding & rebound Musculoskeletal: pertinent finding (left knee swelling, left 3rd toe gangrene, s/p Right 2nd toe amp) Additional Comments: Motor intact in BLE, decrease sensation at baseline (Mechelle Mccain M.D.) Assessment and Plan (1) Peripheral vascular disease Mr. Herrera is a 86 year old male with Hx of Afib, S/P AVR, DM, HTN, CKD, arthritis, GERD, anemia, cerebrovascular disease, PAD with S/P right fem-DP bypass [address] Bob (known to be occluded), BLE claudication with dry gangrene of Left 3rd toe. He currently has GLEN on CKD with elevated CR to 2.4 ( previously 1.9). He will likely require revascularization of the LLE with common femoral endarterectomy once his creatinine improves. Plan: 1. IV hydration 2. Aortoiliac duplex - ordered 3. When creatinine improves, please obtain CTA Abdomen and Pelvis w/ Lower extremity runnoff 4. Will continue to follow Thank you for the consultation. (Mechelle Mccain M.D.) Patient was seen, examined, and chart reviewed. Agree with exam and treatment plan of the Vascular resident. Bump in creatinine may be secondary to contrast from his admission CT scan. (Baldo Jefferson M.D.)
--- NOTE | 2016-08-23 11:32 | Procedure Note ---
Procedure Note Date of Service Aug 23, 2016. Procedure Note HPI: saw patient and evaluated this morning, still complaining of left knee pain. Tentatively scheduled for I&D left septic knee later today. Currently NPO. Cell count 106,000 from aspirate yesterday, cultures negative for growth and crystals negative. After discussion with Dr. Marin, he requested another aspirate of the left knee and STAT cell count with differential, aerobic /anaerobic cultures, AFB, fungus cultures, gram stain and crystal analysis. Patient still tentative for surgery later today pending new cell count obtained today. Patient aware and agrees to another aspirate of left knee Exam: Pain with left knee ROM; moderate effusion left knee, mild warmth with palpation, no erythema. Assessment: Left knee pain and effusion; suspect septic joint Procedure: Patient was identified. Time out completed, verbal consent obtained from patient. Identified site of aspirate as left knee. Patient was given the opportunity to ask questions. Patient lying in bed, leg in extension, marked the superolateral pouch with the needle cap. Cleansed area with alcohol swabs, aspirated 40 cc of cloudy, brownish-red tinged serous fluid, no gross purulence. No injection done at this time. Pressure was applied for hemostasis. Patient tolerated the procedure well, a new band-aid applied to aspiration site. Plan: Continue NPO at this time. Synovial fluid sent to lab for STAT cell count/differential, aerobic/anaerobic cultures with gram stain, AFB and fungal cultures and crystals. Continue IV antibiotics as ordered. Will potentially need a left knee arthroscopic irrigation and debridement of septic knee today. Currently scheduled in the OR for later today. Patient aware and understands plan. Will watch for results today and make decision as soon as possible. Vascular consultation pending regarding third toe gangrene.
[2016-08-23] MEDS ORDERED: DAPTOMYCIN CONSULT ACTIVE PRN ×2 (12:30)
[2016-08-23] MEDS ORDERED: DAPTOMYCIN IV ONE (12:30)
[2016-08-23] MEDS ORDERED: SODIUM CHLORIDE 0.9% IV ONE (12:30)
[2016-08-23] MEDS: D5W AND 1/2NSS + 20MEQ KCL 1,000 ML IV SCH ×2 (12:34→21:47)
[2016-08-23 12:37] LABS: SYNOVIAL FLUID APPEARANCE CLOUDY; SYNOVIAL FLUID COLOR AMBER; SYNOVIAL FLUID MONONUC RELAT 4.6 %; SYNOVIAL FLUID POLYNUC RELAT 95.4 %
--- NOTE | 2016-08-23 12:50 | Clinical Documentation Query ---
CLINICAL DOCUMENTATION QUERY 86 year old male who presents to the Emergency Room with complaints of left leg redness and swelling. In your clinical opinion is this patient being managed for: ( ) Diabetic PVD with gangrene of left 2nd toe. (x ) Other explanation of clinical findings (Please Explain) Cellulitis left foot and leg ( ) Unable to determine (Please Define) ( ) Need to Discuss ( ) Not Agree The medical record reflects the following clinical findings, treatment, and risk factors. Clinical Indicators: Open area to the distal plantar aspect of the left third toe. There is mild bleeding. There is necrotic tissue and hematoma to the plantar aspect of the left third toe. Treatment: ID consult, Orthopedic consult, Vascular consult, Risk Factors: Age, Type II Diabetes, Diabetic neuropathy. Please clarify and document your clinical opinion in the progress notes and discharge summary. Terms such as "probable", "suspected", "likely", "questionable", "possible", or "still to be ruled out" are acceptable. IF IN AGREEMENT, YOU MUST DOCUMENT ABOVE DIAGNOSTIC STATEMENT IN DAILY PROGRESS NOTES AND DISCHARGE SUMMARY. This document is not part of the patient's record. Thank You, Lit Schaeffer, RN [phone]
[2016-08-23 15:16] VITALS: BP 116/60; PULSE 97; TEMP 36.6; O2SAT 99
[2016-08-23] MEDS: HYDROmorphone INJ 1 MG/ML SYR IV PRN (15:44)
[2016-08-23 16:00] VITALS: O2SAT 99
[2016-08-23] MEDS ORDERED: LIDOCAINE HCL 2% 2 ML VIAL (20MG/ML) ONE (18:30)
[2016-08-23] MEDS ORDERED: ONDANSETRON INJ 2 MG/ML 2 ML VIAL ONE ×2 (18:30→19:02)
[2016-08-23] MEDS ORDERED: PROPOFOL IV EMULSION 10 MG/ML 20 ML VIAL IV ONE (18:30)
[2016-08-23] MEDS ORDERED: MIDAZOLAM HCL 1 MG/ML 2ML VIAL ONE (18:31)
[2016-08-23] MEDS ORDERED: FENTANYL CITRATE INJ 50 MCG/1 ML 2 ML VIAL ONE (18:31)
[2016-08-23] MEDS ORDERED: BACITRACIN 50000 UNIT VIAL ONE (18:34)
[2016-08-23] MEDS ORDERED: LIDOCAINE/EPINEPHRINE 1% 20 ML VIAL ONE (18:34)
[2016-08-23] MEDS ORDERED: EpINEphrine INJ 1MG/ML AMP 1 MG/ML AMP ONE (18:37)
[2016-08-23] MEDS ORDERED: EpINEphrine HCL INJ 1 MG/ML 5ML SYRINGE ONE (18:39)
[2016-08-23] MEDS ORDERED: ROCURONIUM BROMIDE 10 MG/ML 5 ML VIAL ONE (19:02)
[2016-08-23] MEDS ORDERED: PHENYLEPHRINE 100MCG/ML 5ML SYR ONE (19:02)
[2016-08-23] MEDS ORDERED: GLYCOPYRROLATE INJ 0.2 MG/ML VIAL ONE (19:02)
[2016-08-23] MEDS ORDERED: NEOSTIGMINE METHYLSULFATE 5 MG/5 ML SYR ONE (19:02)
[2016-08-23] MEDS ORDERED: CEFAZOLIN SOD 1 GM VIAL ONE (19:09)
[2016-08-23] MEDS ORDERED: FENTANYL CITRATE INJ 50 MCG/1 ML 2 ML VIAL IV PRN (19:30)
[2016-08-23] MEDS ORDERED: EpHEDrine SULFATE INJ 50 MG/ML AMP IV PRN (19:30)
[2016-08-23] MEDS ORDERED: LABETALOL HCL IV 5 MG/ML 20ML IV PRN (19:30)
[2016-08-23] MEDS ORDERED: MEPERIDINE HCL 25 MG/ML CARP IV PRN (19:30)
[2016-08-23] MEDS ORDERED: HYDROmorphone INJ 1 MG/ML SYR IV PRN (19:30)
[2016-08-23] MEDS ORDERED: ATROPINE SULFATE 0.1 MG/ML 5ML SYR IV PRN (19:30)
[2016-08-23] MEDS ORDERED: ONDANSETRON INJ 2 MG/ML 2 ML VIAL IV PRN ×2 (19:30→22:30)
--- NOTE | 2016-08-23 20:00 | [facility] Post Operative Brief Note ---
Immediate Operative Summary Operative Date Aug 23, 2016. Pre-Operative Diagnosis suspected Septic Arthritis of Left Knee Post-Operative Diagnosis same Procedure(s) Performed Arthroscopic irrigation and debridement of left knee Surgeon Dr. Marin Business Services Administrator Surgeon(s) none Estimated Blood Loss 25ml Findings synovitis, degeneration, thick wu joint fluid Specimens For Culture: 1. Left Knee Fluid - Gram Stain, C+S, Aerobic/Anaerobic - Routine Drains 1 Anesthesia LMA Complication(s) None Disposition Recovery Room / PACU
--- NOTE | 2016-08-23 20:56 | Anesthesiology Progress Note ---
Anesthesia Post Op Note Date & Time Aug 23, 2016 at 20:56 Vital Signs Pain Intensity: 0 Vital Signs Past 12 Hours Date Time Temp Pulse Resp B/P (MAP) Pulse Ox O2 Delivery O2 Flow Rate FiO2 08/23/16 20:50 36.4 85 14 104/56 95 Nasal Cannula 2 08/23/16 20:40 89 15 94/49 94 Nasal Cannula 2 08/23/16 20:30 97 20 114/82 99 Nasal Cannula 2 08/23/16 20:20 88 22 109/55 100 Mask 10 08/23/16 20:10 94 17 111/63 100 Mask 10 08/23/16 20:01 36.3 77 12 90/49 98 Mask 10 08/23/16 17:29 36.7 107 20 112/95 97 Room Air 08/23/16 16:00 99 Room Air 08/23/16 15:16 36.6 97 18 116/60 (78) 99 Room Air Notes Mental Status: alert / awake / arousable, participated in evaluation Pt Amnestic to Procedure: Yes Nausea / Vomiting: adequately controlled Pain: adequately controlled Airway Patency, RR, SpO2: stable & adequate BP & HR: stable & adequate Hydration State: stable & adequate Anesthetic Complications: no major complications apparent
[2016-08-23 21:13] VITALS: BP 119/52; PULSE 92; TEMP 36.8; O2SAT 97
[2016-08-23] MEDS: SENNA 8.6 MG TAB PO SCH (21:37)
[2016-08-23] MEDS: DOCUSATE SODIUM 100 MG CAP PO SCH (21:38)
[2016-08-23] MEDS: INSULIN GLARGINE SOLOSTAR 100 UNITS/ML 3 ML PEN SC SCH (21:45)
[2016-08-23] MEDS: OXYCODONE HCL IR 5 MG TAB (IMMEDIATE RELEASE) PO PRN (21:47)
[2016-08-23 21:59] VITALS: BP 112/62; PULSE 91; TEMP 36.8; O2SAT 96
--- NOTE | 2016-08-23 22:24 | Progress Note ---
Medicine Progress Note Date & Time of Visit: Aug 23, 2016 at 09:50 . Subjective No fever. Persistent pain left knee. Neuropathic discomfort both feet. No chest pain. No cough or shortness of breath. No nausea, vomiting, diarrhea. . Objective Last 8 Hrs Date Time Temp Pulse Resp B/P (MAP) Pulse Ox O2 Delivery O2 Flow Rate FiO2 08/23/16 21:59 36.8 91 18 112/62 (79) 96 Room Air 08/23/16 21:13 36.8 92 16 119/52 (74) 97 Room Air 08/23/16 20:50 36.4 85 14 104/56 95 Nasal Cannula 2 08/23/16 20:40 89 15 94/49 94 Nasal Cannula 2 08/23/16 20:30 97 20 114/82 99 Nasal Cannula 2 08/23/16 20:20 88 22 109/55 100 Mask 10 08/23/16 20:10 94 17 111/63 100 Mask 10 08/23/16 20:01 36.3 77 12 90/49 98 Mask 10 08/23/16 17:29 36.7 107 20 112/95 97 Room Air 08/23/16 16:00 99 Room Air 08/23/16 15:16 36.6 97 18 116/60 (78) 99 Room Air Physical Exam: General- lying in bed, no distress Neck- no JVD Lungs- clear Heart- irregular, 2/6 systolic murmur at base, no gallop appreciated Abdomen- normal bowel sounds, soft, nontender; no palpable masses or hepatosplenomegaly Extremities- LLE- gangrenous changes left third toe capillary refill other toes 1-2 sec darkened area of erythema dorsum of foot trace pretibial edema moderate erythema extending to upper calf, less intense RLE- s/p amputation left second toe diminished pedal pulses capillary refill 1-2 seconds no pretibial edema or calf tenderness Neuro- alert, oriented . Laboratory Results: Last 24 Hours Test 08/23/16 07:07 08/23/16 07:29 08/23/16 11:10 08/23/16 11:53 White Blood Count 8.20 K/uL Red Blood Count 3.17 M/uL Hemoglobin 9.4 g/dL Hematocrit 29.1 % Mean Corpuscular Volume 91.8 fL Mean Corpuscular Hemoglobin 29.7 pg Mean Corpuscular Hemoglobin Concent 32.3 g/dl RDW Standard Deviation 54.9 fL RDW Coefficient of Variation 16.3 % Platelet Count 142 K/uL Mean Platelet Volume 10.1 fL Sodium Level 136 mmol/L Potassium Level 3.8 mmol/L Chloride Level 99 mmol/L Carbon Dioxide Level 26 mmol/L Anion Gap 11.0 mmol/L Blood Urea Nitrogen 44 mg/dl Creatinine 2.40 mg/dl Est Creatinine Clear Calc Drug Dose 22.0 ml/min Estimated GFR () 26.9 Estimated GFR (Non- 23.2 BUN/Creatinine Ratio 18.4 Random Glucose 161 mg/dl Calcium Level 8.6 mg/dl Bedside Glucose 188 mg/dl 232 mg/dl Synovial Fluid Source KNEE Synovial Fluid Color DEBRA Synovial Fluid Appearance CLOUDY Synovial Fluid WBC 76327 /uL Synovial Fluid RBC 54460 /uL Synovial Fluid Polynuclear WBCs % 95.4 % Synovial Fluid Mononuclear WBCs % 4.6 % Synovial Fluid Crystals Test 08/23/16 16:05 08/23/16 17:31 08/23/16 20:08 08/23/16 21:28 Bedside Glucose 143 mg/dl 148 mg/dl 148 mg/dl 162 mg/dl Date/Time Source Procedure Growth Status 08/23/16 19:10 Joint Fluid/Space (Synovial) Knee Left Gram Stain Pending Received 08/23/16 19:10 Joint Fluid/Space (Synovial) Knee Left Bacterial Culture Pending Received 08/23/16 11:10 Joint Fluid/Space (Synovial) Knee Left Fungal Smear - Final Resulted 08/23/16 11:10 Joint Fluid/Space (Synovial) Knee Left Fungal Culture Pending Resulted 08/23/16 11:10 Joint Fluid/Space (Synovial) Knee Left Acid Fast Stain Pending Received 08/23/16 11:10 Joint Fluid/Space (Synovial) Knee Left Mycobacterial Culture Pending Received 08/23/16 11:10 Joint Fluid/Space (Synovial) Knee Left Gram Stain - Final Resulted 08/23/16 11:10 Joint Fluid/Space (Synovial) Knee Left Bacterial Culture Pending Resulted Assessment & Plan CELLULITIS LEFT FOOT AND LEG Presented with rapidly progressing cellulitis of left lower extremity, starting with left third toe. Plain films of foot did not reveal any apparent osteomyelitis. C-reactive protein 7.48. Lactic acid 1.2. Blood cultures obtained in ED. Received IV antibiotic coverage with vancomycin and ceftriaxone. Changed antibiotic coverage to daptomycin and piperacillin/tazobactam. ID consulted. Vascular Surgery consulted. LEFT KNEE EFFUSION Patient complaining of left knee pain and has a moderate left knee effusion without erythema or warmth. Underlying rheumatoid arthritis. Orthopedics consulted and knee aspirated. Synovial fluid WBC count 106,600. Gram stain showed many polys, no organisms. No crystals were seen. Irrigation and debridement recommended. CORONARY ARTERY DISEASE No anginal symptoms. Continue aspirin, metoprolol. Hold statin due to therapy with daptomycin. ATRIAL FIBRILLATION / FLUTTER Chronic AF. On metoprolol for rate control. Anticoagulation discontinued by Cardiology due to epistaxis and unsteady gait. Continue aspirin and metoprolol. HYPERTENSION Continue metoprolol and losartan with hold parameters Follow and titrate Rx. CKD III / GLEN Baseline creatinine 1.6. Creatinine in ED 1.9. Serum creatinine today = 2.4. Holding furosemide. IV fluids. Consult Nephrology. Avoid potential nephrotoxins when able. Follow. 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 Well-controlled at home. Random blood sugar in ED 200. Hgb A1C in clinic 7.0 on 06/30/16. Fasting blood sugar this morning = 161. Lantus + NovoLog per protocol during hospital stay. DYSLIPIDEMIA Hold simvastatin due to therapy with daptomycin. RHEUMATOID ARTHRITIS Hold methotrexate pending resolution of cellulitis. VTE PROPHYLAXIS Moderate risk for VTE. SQ heparin. RESUSCITATION STATUS Discussed with patient. He has a living will. He would not like resuscitation attempted in the event of a cardiopulmonary arrest; he prefers a natural passing without extraordinary interventions. Therefore, code status = "Level 5" (DNR). DISPOSITION To be determined. Family Medicine follow-up with Dr. Narvaez. Cardiology follow-up with Dr. Luis Stewart. Rheumatology follow-up with Dr. Bahena. Nephrology follow-up with Dr. Luo. Daughter given update by phone this morning. . Consultants: MARIO Orthopedic Surgery Vascular Surgery . Procedures: cardiac monitoring IV meds venous duplex left lower extremity arterial duplex left lower extremity arthrocentesis left knee arthroscopic irrigation and debridement left knee by Dr. Marin 08/23/16 . Current Inpatient Medications: Current Inpatient Medications Medications (Trade) Dose Ordered Sig/Rosemarie Route Start Time Stop Time Status Last Admin Dose Admin Acetaminophen (Tylenol Tab) 650 mg Q4H PRN PO 08/20/16 16:00 09/19/16 15:59 08/21/16 21:39 650 MG Aspirin (Ecotrin Tab) 81 mg QAM PO 08/21/16 09:00 09/20/16 08:59 08/23/16 09:07 81 MG Folic Acid (Folvite Tab) 1 mg QAM PO 08/21/16 09:00 09/20/16 08:59 08/23/16 09:07 1 MG Losartan Potassium (coZAAR TAB) 12.5 mg DAILY PO 08/21/16 09:00 09/20/16 08:59 08/23/16 09:07 12.5 MG Metoprolol Tartrate (Lopressor Tab) 25 mg BID PO 08/20/16 21:00 09/19/16 20:59 08/23/16 21:39 25 MG Multivitamins (Multivitamin Tab) 1 tab DAILY PO 08/21/16 09:00 09/20/16 08:59 08/23/16 09:06 1 TAB Potassium Chloride (Klor-Con M10) 10 meq DAILY PO 08/21/16 09:00 09/20/16 08:59 08/23/16 09:07 10 MEQ Insulin Aspart (novoLOG ASPART) SLIDING SCALE G... ACHS SC 08/20/16 21:00 09/19/16 20:59 08/23/16 21:45 4 UNITS Glucose (Glucose 40% Gel) 15-30 GRAMS 15 GRAMS... UD PRN PO 08/20/16 21:00 09/19/16 20:59 Glucose (Glucose Chew Tab) 4-8 Tablets 4 Tabl... UD PRN PO 08/20/16 21:00 09/19/16 20:59 Dextrose (Dextrose 50% 50ML Syringe) 25-50ML OF 50% DW IV FOR... UD PRN IV 08/20/16 21:00 09/19/16 20:59 Glucagon (Glucagon Inj) 1 mg UD PRN SQ 08/20/16 21:00 09/19/16 20:59 Piperacillin Sod/ Tazobactam Sod 3.375 gm/Dextrose 115 ml @ 28.75 mls/ hr Q8H IV 08/21/16 06:00 08/31/16 05:59 08/23/16 21:47 28.75 MLS/HR Piperacillin Sod/ Tazobactam Sod (Consult) 1 ea UD PRN N/A 08/21/16 01:00 09/20/16 00:59 Hydromorphone HCl (Dilaudid Inj) 0.5 mg Q3H PRN IV 08/22/16 00:00 09/05/16 00:00 08/23/16 15:44 0.5 MG Oxycodone HCl (Roxicodone Immediate Rel Tab) 5 mg Q6H PRN PO 08/22/16 00:00 09/05/16 00:00 08/23/16 21:47 5 MG Insulin Glargine (Lantus Solostar Pen) 20 unit HS SC 08/22/16 21:00 09/21/16 20:59 08/23/16 21:45 20 UNIT Potassium Chloride/Dextrose/ Sod Cl 1,000 ml @ 100 mls/hr Q10H IV 08/23/16 12:15 09/22/16 12:14 08/23/16 21:47 100 MLS/HR Daptomycin 500 mg/ Sodium Chloride 60 ml @ 100 mls/hr Q2D@0900 IV 08/25/16 09:00 08/30/16 23:59 Daptomycin (Consult) 1 [facility] PRN N/A 08/23/16 12:30 09/22/16 12:29 Fentanyl Citrate (Fentanyl Inj) 50 mcg Q5M PRN IV 08/23/16 19:30 08/24/16 00:30 Hydromorphone HCl (Dilaudid Inj) 0.5 mg Q5M PRN IV 08/23/16 19:30 08/24/16 00:30 Meperidine HCl (Demerol Inj) 25 mg Q5M PRN IV 08/23/16 19:30 08/24/16 00:30 Ondansetron HCl (Zofran Inj) 4 mg ONE PRN IV 08/23/16 19:30 08/24/16 00:30 Labetalol HCl (Normodyne IV) 5 mg Q5M PRN IV 08/23/16 19:30 08/24/16 00:30 Ephedrine Sulfate (EpHEDrine SULFATE INJ) 5 mg Q5M PRN IV 08/23/16 19:30 08/24/16 00:30 Atropine Sulfate (Atropine Sulfate 0.1MG/Ml Inj) 0.5 mg Q1M PRN IV 08/23/16 19:30 08/24/16 00:30 Senna (Senokot Tab) 17.2 mg HS PO 08/23/16 21:00 09/22/16 20:59 08/23/16 21:37 17.2 MG Docusate Sodium (coLACE CAP) 100 mg BID PO 08/23/16 21:00 09/22/16 20:59 08/23/16 21:38 100 MG Heparin Sodium (Porcine) (Heparin Sq 5000 Unit/0.5ml) 5,000 unit Q12 SQ 08/24/16 09:00 09/20/16 08:59
[2016-08-23] MEDS: SODIUM CHLORIDE 0.9% 1000ML 1,000 ML IV SCH (22:45)
--- NOTE | 2016-08-23 23:10 | OPERATIVE REPORT ---
DATE OF OPERATION: 08/23/2016 PREOPERATIVE DIAGNOSIS: Suspected septic arthritis of the left knee. POSTOPERATIVE DIAGNOSIS: Same. PROCEDURE: Arthroscopic irrigation and debridement. SURGEON: Xavier Marin MD ASSISTANTS: None. ANESTHESIA: Laryngeal mask. 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 X-rays of the knee showed degenerative change and no fracture. His white count is normal. He is afebrile, but his sed rate and C-reactive protein are markedly elevated. An aspiration done of the knee has not grown out any bacteria, no crystals have been identified and the white blood cell count in the fluid is 106,000. This was double checked with a second a second aspiration which did show a few pseudogout type crystals, but the white blood cell is still approximately 95,000. The patient is a diabetic and also a rheumatoid arthritic on methotrexate. Vascular surgery has seen him for his toe and is considering revascularization. Given the patient's labs as well as his markedly high white blood cell count I suspect that he has septic arthritis of the knee. White blood cell count of this magnitude typically is associated with a bacterial infectious etiology. Rather than waiting further in this patient who is already immunocompromised and has multiple other medical problems, I think it is prudent to consider operative intervention to wash his knee out. I discussed these issues with the patient and his daughter. PROCEDURE IN DETAIL: Informed consent was obtained. The patient was identified as Chaz Flores. He identified the operative site as the left knee. I marked with my initials. A preop surgical time out was performed. A preop dose of IV antibiotics was given. He was taken to the operating room and positioned supine on the OR table. He was already on intravenous antibiotics; I gave him a supplemental dose of Ancef. A lateral post was used for stressing the knee. No tourniquet was utilized. The exam under anesthesia showed range of 0/5/115. He had a large left knee effusion. The knee was not red, but it was warm. There was no drainage. Intact cruciate and collateral laxity was noted. DVT prophylaxis will be done with heparin and early mobility postoperatively. I am concerned regarding the use of mechanical devices due to the vascular disturbance in his left leg. He was positioned supine on the OR table. The left leg was prepped and draped in usual sterile fashion with the ankle to the hip. The foot was screwed from the field with an impervious stockinette and Ioban. Inferolateral viewing portal, superolateral outflow portal and inferomedial working portals were established. Diagnostic arthroscopy was performed. Twelve liters of saline without antibiotics were run through the knee. Diffuse synovitis was noted throughout the knee. Upon entering the knee, approximately 50-75 mL of slightly wu, abnormally thick and discolored synovial fluid with particulate debris and some bloody discoloration was drained. There was mid-grade chondrosis of the patella and trochlea. There was a degenerative medial meniscus tear with an unstable undersurface flap which I debrided with biters and shaver. There was mid-grade chondrosis diffusely in the medial compartment softening of the lateral tibial plateau. The patellar and medial compartment chondrosis was grade 1 and 2. There was a small area of grade 3 chondrosis in the lateral compartment, perhaps 1 x 2 cm. Chondroplasty was performed to remove any unstable fragments. There was fraying of the inner rim of the lateral meniscus, but no tear. There was grade 1 softening of the lateral tibial plateau and perhaps some grade 2 change as well. The cruciate ligaments were intact. The posteromedial and lateral compartments were visualized. Irrigation was performed throughout the knee. There were no loose bodies. A thorough synovectomy was performed in the gutters, pouch and anterior knee joint. After the irrigation and debridement, I inserted a Hemovac drain through the superolateral outflow portal. The arthroscopic portals were then closed with 4-0 nylon in an interrupted fashion. A soft sterile dressing was applied, taking care to avoid any excess compression about the knee area. The patient was then awakened from anesthesia without difficulty and taken to recovery in stable condition. The fluid was evacuated from the knee and was cultured. Counts were correct at the end of case. Blood loss was approximately 25 mL. At the conclusion of the operation, I spoke to patient's family and informed them of my findings. Postoperative instructions were given. He will be able to weightbear as tolerated. He will receive PT and OT. He can use a walker and will continue with ID consult and intravenous antibiotics. We will follow up on culture and lab results. I attest to the content of the Intraoperative Record and any orders documented therein. Any exception s are noted below.
[2016-08-23 23:32] VITALS: BP 109/57; PULSE 68; TEMP 36.7; O2SAT 90
[2016-08-24] VITALS (7 sets, daily range): BP systolic 113–141; BP diastolic 51–76; PULSE 85–108; TEMP 36.4–36.9; O2SAT 93–96
[2016-08-24] MEDS: HYDROmorphone INJ 1 MG/ML SYR IV PRN (00:01)
[2016-08-24] MEDS: PIPERACILL/TAZOBAC IV 3.375 GM in DEXTROSE 5% 100ML IV SCH ×3 (05:37→21:23)
[2016-08-24 07:36] LABS: HEMATOCRIT 27.7 % (42-52); MEAN CELL VOLUME 93.6 fL (80-100); MEAN CORPUSCULAR HEMOGLOBIN 30.1 pg (25-34); MEAN CORPUSCULAR HGB CONC 32.1 g/dl (32-36); MEAN PLATELET VOLUME 10.2 fL (7.4-10.4); PLATELET COUNT 139 K/uL (130-400); RED BLOOD COUNT 2.96 M/uL (4.7-6.1); WHITE BLOOD COUNT 8.23 K/uL (4.8-10.8)
[2016-08-24 08:12] LABS: BUN/CREATININE RATIO 18.1 (10-20); CREATININE 1.8 mg/dl (0.60-1.40)
[2016-08-24] MEDS: METOPROLOL TARTRATE 25 MG TAB PO SCH ×2 (08:21→21:20)
[2016-08-24] MEDS: MULTIVITAMIN TAB PO SCH (08:21)
[2016-08-24] MEDS: LOSARTAN POTASSIUM 25 MG TAB PO SCH (08:22)
[2016-08-24] MEDS: ASPIRIN 81 MG ECTAB PO SCH (08:22)
[2016-08-24] MEDS: DOCUSATE SODIUM 100 MG CAP PO SCH ×2 (08:22→21:20)
[2016-08-24] MEDS: POTASSIUM CHLORIDE 10 MEQ TABCR PO SCH (08:22)
[2016-08-24] MEDS: INSULIN ASPART 100 UNITS/ML 3 ML PEN SC SCH ×4 (08:24→21:21)
[2016-08-24 08:45] LABS: CALCIUM 8.5 mg/dl (8.5-10.1)
--- NOTE | 2016-08-24 09:02 | Orthopedic Progress Note ---
Orthopedic Progress Note Date of Service Aug 24, 2016. 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 No removed during exam. Pt still has moderated edema and tenderness upon palpation over the Left knee. Wound vac still in place with bloody drainage. 3rd toe on Left foot is black (gangrenous) in color and covered with bandage. Date Time Temp Pulse Resp B/P (MAP) Pulse Ox O2 Delivery O2 Flow Rate FiO2 08/24/16 07:18 36.9 104 20 127/66 (86) 93 08/24/16 04:00 36.5 96 16 113/66 (82) 96 Room Air 08/24/16 00:24 36.4 85 16 116/71 (86) 94 Room Air 08/24/16 00:00 Room Air 08/23/16 23:32 36.7 68 18 109/57 (74) 90 Room Air 08/23/16 21:59 36.8 91 18 112/62 (79) 96 Room Air 08/23/16 21:13 36.8 92 16 119/52 (74) 97 Room Air 08/23/16 20:50 36.4 85 14 104/56 95 Nasal Cannula 2 08/23/16 20:40 89 15 94/49 94 Nasal Cannula 2 08/23/16 20:30 97 20 114/82 99 Nasal Cannula 2 08/23/16 20:20 88 22 109/55 100 Mask 10 08/23/16 20:10 94 17 111/63 100 Mask 10 08/23/16 20:01 36.3 77 12 90/49 98 Mask 10 08/23/16 17:29 36.7 107 20 112/95 97 Room Air 08/23/16 16:00 99 Room Air 08/23/16 15:16 36.6 97 18 116/60 (78) 99 Room Air Laboratory Results 24 Hours: Test 08/24/16 07:05 Hematocrit 27.7 % Hemoglobin 8.9 g/dL Assessment & Plan Assessment: Day 1 s/p Left knee arthroscopic irrigation and debridement. Plan: Cont IV ABX Cont PO pain medication. Cont DVT prophylaxis. Cont coverage by Medicine services. Will discuss with Dr. Marin. (1) Peripheral vascular disease Chronic
[2016-08-24] MEDS: HEPARIN SOD 5000 UNIT/0.5 ML CARP SQ SCH ×2 (09:10→21:22)
--- NOTE | 2016-08-24 09:45 | Anesthesiology Progress Note ---
Anesthesia Post Op Note Date & Time Aug 24, 2016 at 09:45 Vital Signs Pain Intensity: 8.0 Vital Signs Past 12 Hours Date Time Temp Pulse Resp B/P (MAP) Pulse Ox O2 Delivery O2 Flow Rate FiO2 08/24/16 08:15 Room Air 08/24/16 07:18 36.9 104 20 127/66 (86) 93 08/24/16 04:00 36.5 96 16 113/66 (82) 96 Room Air 08/24/16 00:24 36.4 85 16 116/71 (86) 94 Room Air 08/24/16 00:00 Room Air 08/23/16 23:32 36.7 68 18 109/57 (74) 90 Room Air 08/23/16 21:59 36.8 91 18 112/62 (79) 96 Room Air Notes Mental Status: alert / awake / arousable, participated in evaluation Pt Amnestic to Procedure: Yes Nausea / Vomiting: adequately controlled Pain: adequately controlled Airway Patency, RR, SpO2: stable & adequate BP & HR: stable & adequate Hydration State: stable & adequate Anesthetic Complications: no major complications apparent
[2016-08-24] MEDS ORDERED: OPTIRAY 320 IV PRN (10:00)
--- NOTE | 2016-08-24 10:03 | Progress Note ---
Progress Note Date of Service Aug 24, 2016. Progress Note Ordered CTA abd/pelvis with runoff for tomorrow morning after further hydration today. Will reeval after CTA and make further recommendations.
[2016-08-24] MEDS: SODIUM CHLORIDE 0.9% 1000ML 1,000 ML IV SCH (11:20)
--- NOTE | 2016-08-24 12:09 | NEPHROLOGY CONSULTATION ---
DATE OF CONSULTATION: 08/24/2016 ATTENDING OF RECORD: Dr. Shaikh. REASON FOR CONSULTATION: GLEN. HISTORY OF PRESENT ILLNESS: This is an 86-year-old male, with a history of A-Fib, no longer on anticoagulation, who also has a bioprosthetic aortic valve as well as CKD stage 3 with baseline creatinine around 1.6, who comes in with cellulitis of the left leg/toe and the redness started to rapidly worsen. The patient has significant vascular disease at baseline requiring bypass procedures in the past and has lost toes on his right foot. The patient's baseline creatinine is 1.6, came in at 1.9, trended up to 2.4 and this morning is down to 1.8. Fluids were started and tolerating the fluids well. The patient did require surgery on the with irrigation and debridement of the left knee secondary to septic arthritis of the left knee, currently wrapped with a drain in place, currently receiving antibiotics of daptomycin and Zosyn, was initially started on vancomycin which was switched when kidney function started to worsen. The patient this morning is nauseous and vomiting, but otherwise doing well. REVIEW OF SYSTEMS: Has pain in the left knee. Positive for nausea and vomiting. No chest pain. No shortness of breath. No headaches. No difficulty swallowing. No fevers or chills. He does have significant hearing loss, but denies any shortness of breath, diarrhea or constipation. No issues with urination at this time. All other review of systems is otherwise negative. PAST MEDICAL HISTORY: CKD stage 3 with baseline creatinine of 1.6, aortic stenosis status post bioprosthetic aortic valve replacement, atrial fibrillation, type 2 diabetes, peripheral vascular disease, hyperlipidemia, hypertension and rheumatoid arthritis. PAST SURGICAL HISTORY: Cataract surgeries, cholecystectomy, aortic valve replacement and amputation of the right second toe. FAMILY HISTORY: Significant for heart disease. SOCIAL HISTORY: Former smoker. No alcohol. No drugs. CURRENT MEDICATIONS: Daptomycin 500 mg IV q. 2 days, heparin 5,000 units subQ q. 12, normal saline at 80 mL an hour, Colace 100 mg p.o. b.i.d., senna 17.2 mg at night, Lantus 20 units subQ at night, aspirin 81 mg a day, folic acid 1 mg daily, Cozaar 12.5 mg daily, multivitamin daily, potassium 10 mEq daily, Zosyn 3.375 IV q. 8, sliding scale insulin and Lopressor 25 mg p.o. b.i.d. PHYSICAL EXAMINATION VITAL SIGNS: Temperature 36.9, pulse 104, respiratory rate is 20, blood pressure 127/66 and satting 93% on room air. I's and O's; 2879 in, a liter out. GENERAL: Awake, alert and oriented x3. Hard of hearing. EYES: No scleral icterus. ENT: Moist mucous membranes. NECK: Supple. PULMONARY: Clear to auscultation. CARDIAC: Irregularly irregular. ABDOMEN: Bowel sounds positive, soft and nontender. EXTREMITIES: Left knee wrapped with drain in place as well as left third toe erythema. NEUROLOGICAL: Nonfocal. DERMATOLOGIC: No ulcers noted, but does have some erythema of the left third toe. LABORATORIES: Sodium is 139, potassium is 4, chloride is 105, bicarbonate is 23, BUN is 33, creatinine is 1.8, glucose is 158, calcium 8.5 and CK is 56. White count is 8.2, H&H 8.9 and 27.7 and platelet count is 139. Blood cultures were negative. Chest x-ray on the 3rd showed no acute process. ASSESSMENT AND PLAN: 1. Acute kidney injury on chronic kidney disease stage 3 with baseline creatinine of 1.6 which worsened up to 2.4, likely secondary to acute tubular necrosis in the setting of cellulitis/infection plus or minus vancomycin, does not appear to have received any nonsteroidal anti-inflammatory drugs. Vancomycin has been appropriately stopped. Currently on IV fluids and tolerating them well. Lungs are clear to auscultation. Would continue the low rate of IV fluids. Creatinine appears to be improving closer to baseline of 1.6, was 1.8 today. Doing appropriate antibiotics and surgical debridement of the left knee/cellulitis. The patient is clinically improving although experiencing nausea and vomiting this morning. We will follow along. Continue the current care. 2. Hypokalemia; on low dose potassium supplement and K is 4 this morning. Would continue the current potassium supplement. 3. Acute kidney injury; CK was checked to rule out rhabdomyolysis which was normal. Urination has improved. Tolerating the IV fluids well. The patient is clinically improving and likely had volume depletion. I appreciate the consultation. KAYCEE
--- NOTE | 2016-08-24 12:34 | Progress Note ---
Medicine Progress Note Date & Time of Visit: Aug 24, 2016 at 12:05. Subjective Pt was seen and examined Lying in bed with no distress Pt said that the left knee is tender He said that the pain is worst when moving the left knee Pt said that this morning he was feeling nauseated after the knee procedure Denies any chest pain, palpitation, dizziness and sob Objective Last 8 Hrs Date Time Temp Pulse Resp B/P (MAP) Pulse Ox O2 Delivery O2 Flow Rate FiO2 08/24/16 08:15 Room Air 08/24/16 07:18 36.9 104 20 127/66 (86) 93 Physical Exam: General- No acute distress Head- atraumatic Eyes- PERRL, EOMI ENT- oropharynx clear Neck- supple, no JVD Lungs- clear to auscultation Heart- irregular rhythm; +Systolic murmur Abdomen- normal bowel sounds, soft Extremities-no calf tenderness, Wound vac still in place in the left knee with bloody drainage. 3rd toe on Left foot is black (gangrenous) in color and covered with bandage. Neuro- alert, oriented, PERRL, EOMI; no facial palsy; no dysarthria Skin- warm & dry Laboratory Results: Last 24 Hours Test 08/23/16 16:05 08/23/16 17:31 08/23/16 20:08 08/23/16 21:28 Bedside Glucose 143 mg/dl 148 mg/dl 148 mg/dl 162 mg/dl Test 08/24/16 07:05 08/24/16 07:38 08/24/16 11:23 White Blood Count 8.23 K/uL Red Blood Count 2.96 M/uL Hemoglobin 8.9 g/dL Hematocrit 27.7 % Mean Corpuscular Volume 93.6 fL Mean Corpuscular Hemoglobin 30.1 pg Mean Corpuscular Hemoglobin Concent 32.1 g/dl RDW Standard Deviation 56.5 fL RDW Coefficient of Variation 16.5 % Platelet Count 139 K/uL Mean Platelet Volume 10.2 fL Sodium Level 139 mmol/L Potassium Level 4.0 mmol/L Chloride Level 105 mmol/L Carbon Dioxide Level 23 mmol/L Anion Gap 11.0 mmol/L Blood Urea Nitrogen 33 mg/dl Creatinine 1.80 mg/dl Est Creatinine Clear Calc Drug Dose 29.3 ml/min Estimated GFR () 38.1 Estimated GFR (Non- 32.9 BUN/Creatinine Ratio 18.1 Random Glucose 158 mg/dl Calcium Level 8.5 mg/dl Total Creatine Kinase 56 U/L Bedside Glucose 164 mg/dl 170 mg/dl Date/Time Source Procedure Growth Status 08/23/16 19:10 Joint Fluid/Space (Synovial) Knee Left Gram Stain - Final Resulted 08/23/16 19:10 Joint Fluid/Space (Synovial) Knee Left Bacterial Culture - Preliminary NO GROWTH TO DATE. Resulted Assessment & Plan CELLULITIS LEFT FOOT AND LEG Presented with cellulitis of left lower extremity that started with left third toe. Left foot Xray showed no conventional radiographic evidence of acute osteomyelitis On admission C-reactive protein 7.48, Lactic acid 1.2. Afebrile and no leukocytosis Blood cultures No growth Received IV vancomycin and ceftriaxone. Abx changed to daptomycin and piperacillin/tazobactam. ID on board recommended to continue current therapy LEFT KNEE EFFUSION Underlying rheumatoid arthritis. S/P Day 1 Left knee arthroscopic irrigation and debridement done by Dr. Marin Orthopedics consulted and knee aspirated. Synovial fluid WBC count 106,600. Gram stain showed many polys, no organisms. No crystals were seen. Continue pain control CORONARY ARTERY DISEASE No anginal symptoms. Continue aspirin, metoprolol. Statin on hold due to therapy with daptomycin. ATRIAL FIBRILLATION / FLUTTER Chronic AF. On metoprolol for rate control. Anticoagulation discontinued by Cardiology due to epistaxis and unsteady gait. Continue aspirin and metoprolol. Stable HYPERTENSION Continue metoprolol and losartan with hold parameters BP stable CKD III / GLEN Baseline creatinine 1.6. Creatinine on admission1.9. Serum creatinine improved from 2.4 to 1.8 today Continue holding furosemide. Avoid potential nephrotoxins when able. 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 Hgb A1C 7.0 on 06/30/16, Controlled Lantus + NovoLog per protocol during hospital stay. DYSLIPIDEMIA Hold simvastatin due to therapy with daptomycin. RHEUMATOID ARTHRITIS Hold methotrexate pending resolution of cellulitis. VTE PROPHYLAXIS Moderate risk for VTE. SQ heparin. RESUSCITATION STATUS DNR DISPOSITION Once medically stable Family Medicine follow-up with Dr. Narvaez. Cardiology follow-up with Dr. Luis Stewart. Rheumatology follow-up with Dr. Bahena. Nephrology follow-up with Dr. Luo. Consultants: ID Orthopedic Surgery Vascular Surgery . Procedures: cardiac monitoring IV meds venous duplex left lower extremity arterial duplex left lower extremity arthrocentesis left knee arthroscopic irrigation and debridement left knee by Dr. Marin 08/23/16 . Current Inpatient Medications: Current Inpatient Medications Medications (Trade) Dose Ordered Sig/Rosemarie Route Start Time Stop Time Status Last Admin Dose Admin Acetaminophen (Tylenol Tab) 650 mg Q4H PRN PO 08/20/16 16:00 09/19/16 15:59 08/21/16 21:39 650 MG Aspirin (Ecotrin Tab) 81 mg QAM PO 08/21/16 09:00 09/20/16 08:59 08/24/16 08:22 81 MG Folic Acid (Folvite Tab) 1 mg QAM PO 08/21/16 09:00 09/20/16 08:59 08/24/16 08:22 1 MG Losartan Potassium (coZAAR TAB) 12.5 mg DAILY PO 08/21/16 09:00 09/20/16 08:59 08/24/16 08:22 12.5 MG Metoprolol Tartrate (Lopressor Tab) 25 mg BID PO 08/20/16 21:00 09/19/16 20:59 08/24/16 08:21 25 MG Multivitamins (Multivitamin Tab) 1 tab DAILY PO 08/21/16 09:00 09/20/16 08:59 08/24/16 08:21 1 TAB Potassium Chloride (Klor-Con M10) 10 meq DAILY PO 08/21/16 09:00 09/20/16 08:59 08/24/16 08:22 10 MEQ Insulin Aspart (novoLOG ASPART) SLIDING SCALE G... ACHS SC 08/20/16 21:00 09/19/16 20:59 08/24/16 08:24 2 UNITS Glucose (Glucose 40% Gel) 15-30 GRAMS 15 GRAMS... UD PRN PO 08/20/16 21:00 09/19/16 20:59 Glucose (Glucose Chew Tab) 4-8 Tablets 4 Tabl... UD PRN PO 08/20/16 21:00 09/19/16 20:59 Dextrose (Dextrose 50% 50ML Syringe) 25-50ML OF 50% DW IV FOR... UD PRN IV 08/20/16 21:00 09/19/16 20:59 Glucagon (Glucagon Inj) 1 mg UD PRN SQ 08/20/16 21:00 09/19/16 20:59 Piperacillin Sod/ Tazobactam Sod 3.375 gm/Dextrose 115 ml @ 28.75 mls/ hr Q8H IV 08/21/16 06:00 08/31/16 05:59 08/24/16 05:37 28.75 MLS/HR Piperacillin Sod/ Tazobactam Sod (Consult) 1 ea UD PRN N/A 08/21/16 01:00 09/20/16 00:59 Hydromorphone HCl (Dilaudid Inj) 0.5 mg Q3H PRN IV 08/22/16 00:00 09/05/16 00:00 08/24/16 00:01 0.5 MG Oxycodone HCl (Roxicodone Immediate Rel Tab) 5 mg Q6H PRN PO 08/22/16 00:00 09/05/16 00:00 08/23/16 21:47 5 MG Insulin Glargine (Lantus Solostar Pen) 20 unit HS SC 08/22/16 21:00 09/21/16 20:59 08/23/16 21:45 20 UNIT Daptomycin 500 mg/ Sodium Chloride 60 ml @ 100 mls/hr Q2D@0900 IV 08/25/16 09:00 08/30/16 23:59 Daptomycin (Consult) 1 ea UD PRN N/A 08/23/16 12:30 09/22/16 12:29 Senna (Senokot Tab) 17.2 mg HS PO 08/23/16 21:00 09/22/16 20:59 08/23/16 21:37 17.2 MG Docusate Sodium (coLACE CAP) 100 mg BID PO 08/23/16 21:00 09/22/16 20:59 08/24/16 08:22 100 MG Heparin Sodium (Porcine) (Heparin Sq 5000 Unit/0.5ml) 5,000 unit Q12 SQ 08/24/16 09:00 09/20/16 08:59 08/24/16 09:10 5,000 UNIT Ondansetron HCl (Zofran Inj) 4 mg Q6H PRN IV 08/23/16 22:30 09/22/16 22:29 08/24/16 06:41 4 MG Sodium Chloride 1,000 ml @ 80 mls/hr [id number] IV 08/23/16 22:30 09/22/16 22:29 08/24/16 11:20 80 MLS/HR Ioversol (Optiray 320) 125 ml UD PRN IV 08/24/16 10:00 08/28/16 09:59
--- NOTE | 2016-08-24 19:32 | PROGRESS NOTE ---
DATE: 08/24/2016 SUBJECTIVE: Mr. Flores is in his chair. He transferred with assistance to his bed. His foot is warm. He has some darkish discoloration in the central part of his foot. He can flex and extend his ankle and toes. Pedal pulses are not palpable. Drainage is 25 mL. The Hemovac was pulled. He can do a leg raise. He still notes some discomfort in the knee, but it seems to feel better. He is afebrile. His vital signs are stable. White count is 8, hematocrit is 28, platelet count is 139, BUN 33 and creatinine 1.8. None of his cultures have any growth. One of his aspirates showed a few pseudogout crystals. The first one did not show any. IMPRESSION: 1. Possible septic arthritis of the left knee status post arthroscopic washout. 2. Left knee pain, effusion, elevated sedimentation rate, C-reactive protein and greater than 100,000 white blood cells on joint fluid analysis. PLAN: Findings were discussed. Cultures have not grown out anything. It is possible that this may have been something like pseudogout. I would question why we did not see pseudogout crystals on the initial aspiration. He will continue on his intravenous antibiotics. The drain was pulled. He can initiate some PT at this time with range of motion and weightbearing on the leg. His heparin can be restarted for DVT prophylaxis.
[2016-08-24] MEDS: SENNA 8.6 MG TAB PO SCH (21:00)
[2016-08-24] MEDS: INSULIN GLARGINE SOLOSTAR 100 UNITS/ML 3 ML PEN SC SCH (21:21)
[2016-08-25 00:05] VITALS: PULSE 98
[2016-08-25] MEDS: SODIUM CHLORIDE 0.9% 1000ML 1,000 ML IV SCH ×3 (00:22→23:24)
[2016-08-25] MEDS: PIPERACILL/TAZOBAC IV 3.375 GM in DEXTROSE 5% 100ML IV SCH ×3 (05:45→21:48)
[2016-08-25 07:56] VITALS: BP 105/61; PULSE 87; TEMP 36.8; O2SAT 93
[2016-08-25 07:58] LABS: HEMATOCRIT 27.1 % (42-52); MEAN CELL VOLUME 93.4 fL (80-100); MEAN CORPUSCULAR HEMOGLOBIN 28.6 pg (25-34); MEAN CORPUSCULAR HGB CONC 30.6 g/dl (32-36); MEAN PLATELET VOLUME 9.9 fL (7.4-10.4); PLATELET COUNT 162 K/uL (130-400); WHITE BLOOD COUNT 6.64 K/uL (4.8-10.8)
[2016-08-25 08:31] LABS: BUN/CREATININE RATIO 15.9 (10-20); CREATININE 1.9 mg/dl (0.60-1.40); POTASSIUM 4.1 mmol/L (3.5-5.1)
[2016-08-25 08:40] LABS: CALCIUM 8.1 mg/dl (8.5-10.1)
[2016-08-25] MEDS ORDERED: SODIUM BICARBONATE 8.4% INJ 100 MEQ in STERILE WATER 1000 ML 1,000 ML IV SCH (09:15)
--- NOTE | 2016-08-25 09:20 | Orthopedic Progress Note ---
Orthopedic Progress Note Date of Service Aug 25, 2016. Subjective Post OP Day: 2 Reports: feeling well, pain controlled w PO medications, Denies: complaints, chest pain, SOB, nausea / vomiting, light headedness, calf pain Additional Notes: states that his knee is much improved, still some pain, but tolerating movement more. Objective calves soft nontender, N/V intact, capillary refill less than 2 sec., incision C /D/I, A&O x3, toes mobile Dressing with dried bloody drainage at hemovac site. Removed today, incisions with retained sutures, no active drainage. Small joint effusion left knee, he' s able to SLR independently and tolerates flexion to about 30 degrees actively without significant pain. No warmth. No erythema, much less tender with palpation as compared to pre-op Date Time Temp Pulse Resp B/P (MAP) Pulse Ox O2 Delivery O2 Flow Rate FiO2 08/25/16 07:56 36.8 87 18 105/61 (76) 93 Room Air 08/25/16 07:10 Room Air 08/25/16 00:05 98 08/25/16 00:05 Room Air 08/24/16 23:00 36.7 108 18 141/76 (97) 96 Room Air 08/24/16 21:19 106 124/51 (75) 08/24/16 20:00 Room Air 08/24/16 20:00 36.8 98 18 126/55 (78) 96 Room Air 08/24/16 16:15 Room Air 08/24/16 15:55 36.4 105 20 115/61 (79) 95 Room Air Laboratory Results 24 Hours: Test 08/25/16 07:22 Hematocrit 27.1 % Hemoglobin 8.3 g/dL Assessment & Plan Assessment: POD 2 s/p Left knee arthroscopic irrigation and debridement. Plan: Cont IV ABX H/H stable will monitor Cont PO pain medication as needed. Ok to restart Heparin for DVT prophylaxis. Change dressing daily left knee and PRN. Ok to be out of bed as tolerated with the assistance of a walker. Allowed for full ROM as tolerated left knee Hemovac removed last PM. Ice to left knee as tolerated. Will discuss findings with Dr. Marin. (1) Peripheral vascular disease Chronic
[2016-08-25] MEDS: POTASSIUM CHLORIDE 10 MEQ TABCR PO SCH (09:29)
[2016-08-25] MEDS: MULTIVITAMIN TAB PO SCH (09:29)
[2016-08-25] MEDS: ASPIRIN 81 MG ECTAB PO SCH (09:29)
[2016-08-25] MEDS: DOCUSATE SODIUM 100 MG CAP PO SCH ×2 (09:29→20:31)
[2016-08-25] MEDS: LOSARTAN POTASSIUM 25 MG TAB PO SCH (09:30)
[2016-08-25] MEDS: METOPROLOL TARTRATE 25 MG TAB PO SCH ×2 (09:30→20:31)
[2016-08-25] MEDS: INSULIN ASPART 100 UNITS/ML 3 ML PEN SC SCH ×4 (09:31→21:05)
[2016-08-25] MEDS: HEPARIN SOD 5000 UNIT/0.5 ML CARP SQ SCH ×2 (09:32→21:06)
[2016-08-25] MEDS: DAPTOmycin IV 500 MG in SODIUM CHLORIDE 0.9% 50ML 50 ML IV SCH (09:36)
--- NOTE | 2016-08-25 11:29 | PROGRESS NOTE ---
DATE: 08/25/2016 SUBJECTIVE: He is out of bed, less knee pain. He was able to ambulate in the nassar. [place] has changed his dressing previously and reported improvement. His drain was pulled last evening. He is afebrile. White count is normal. Hematocrit is 27. None of his cultures have grown out anything. At this time, we will continue to monitor. Continue antibiotics and continue his rehabilitation. Continue antibiotics pending final culture results. Heparin for DVT prophylaxis per the primary team. Physical therapy, he is to work on range of motion.
[2016-08-25 12:02] VITALS: BP 101/60; PULSE 80; TEMP 36.6; O2SAT 97
--- NOTE | 2016-08-25 13:57 | DIAGNOSTIC IMAGING REPORT ---
CT angiogram of the extremities ANGIO AA KIRK LE RUNOFF CLINICAL HISTORY: Cellulitis peripheral vascular disease TECHNIQUE: Transaxial acquisition with multi axial reformatted images COMPARISON STUDY: None FINDINGS: Severe atherosclerotic change throughout all major arterial structures of the abdomen and pelvis and lower extremities. There are small bilateral pleural effusions. There is a high-grade stenotic process of the celiac axis as well as the origin of the superior mesenteric arteries. There is involvement of the mesenteric vessels. Abdominal aorta shows extensive atherosclerotic chronic change and ectasia throughout. Iliac vasculature shows extensive atherosclerotic change. There are findings of high-grade intercritical stenosis origin of the femoral artery on the right. There is a dense multilevel arterial occlusive change with associated calcification throughout the femoral arteries bilaterally. Luminal presence is minimal. Collateral vessels are present. The runoff vessels of the lower legs shows severe arterial occlusive change throughout. There is severe compromise of the lumen of the popliteal arteries, with severe arterial occlusive change of the right of the lower legs. Minimal flow is identified throughout. The severity of the disease is sufficient to diminish the importance of any focal lesion. Minimal flow characteristics are identified to the lower legs and feet. IMPRESSION: 1. Severe arterial occlusive/atherosclerotic change of all major arterial structures of the legs and lower legs. 2. Vascular flow is severely compromised throughout. 3. All vessels demonstrate evidence for at least moderate collateral vessel formation. 4. Significant arterial occlusive change of the arterial structures of the abdomen and pelvis, including arterial structures of the mesentery 5. The severity of the disease is sufficiently severe and widespread that any one focal area of narrowing is felt to be insignificant in relation to the systemic arterial occlusive change throughout. 6. Severe compromise of arterial flow throughout all major vessels of the legs and lower legs. Electronically signed by: Morteza King M.D. 08/25/2016 1:55 PM Dictated Date/Time: 08/25/2016 1:40 PM
[2016-08-25 15:07] VITALS: BP 113/61; PULSE 73; TEMP 36.8; O2SAT 98
--- NOTE | 2016-08-25 18:48 | Progress Note ---
Medicine Progress Note Date & Time of Visit: Aug 25, 2016 at 18:37. Subjective Pt was seen and examined Sitting in chair with no distress Pt said that the left knee feels much better he said that now he is able to move it and the pain is less He walks with PT today denies any chest pain, palpitation, dizziness and sob Objective Last 8 Hrs Date Time Temp Pulse Resp B/P (MAP) Pulse Ox O2 Delivery O2 Flow Rate FiO2 08/25/16 15:07 36.8 73 18 113/61 (78) 98 08/25/16 12:02 36.6 80 14 101/60 (74) 97 Room Air Physical Exam: General- No acute distress Head- atraumatic Eyes- PERRL, EOMI ENT- oropharynx clear Neck- supple, no JVD Lungs- clear to auscultation Heart- irregular rhythm; +Systolic murmur Abdomen- normal bowel sounds, soft Extremities-no calf tenderness, Left knee is wrap with ruthie bandage. 3rd toe on Left foot is black (gangrenous) in color and covered with bandage. Neuro- alert, oriented, PERRL, EOMI; no facial palsy; no dysarthria Skin- warm & dry Laboratory Results: Last 24 Hours Test 08/24/16 21:15 08/25/16 07:22 08/25/16 08:13 08/25/16 12:04 Bedside Glucose 186 mg/dl 139 mg/dl 152 mg/dl White Blood Count 6.64 K/uL Red Blood Count 2.90 M/uL Hemoglobin 8.3 g/dL Hematocrit 27.1 % Mean Corpuscular Volume 93.4 fL Mean Corpuscular Hemoglobin 28.6 pg Mean Corpuscular Hemoglobin Concent 30.6 g/dl RDW Standard Deviation 55.3 fL RDW Coefficient of Variation 16.2 % Platelet Count 162 K/uL Mean Platelet Volume 9.9 fL Sodium Level 141 mmol/L Potassium Level 4.1 mmol/L Chloride Level 106 mmol/L Carbon Dioxide Level 28 mmol/L Anion Gap 7.0 mmol/L Blood Urea Nitrogen 30 mg/dl Creatinine 1.90 mg/dl Est Creatinine Clear Calc Drug Dose 27.7 ml/min Estimated GFR () 35.7 Estimated GFR (Non- 30.8 BUN/Creatinine Ratio 15.9 Random Glucose 114 mg/dl Calcium Level 8.1 mg/dl Test 6/7/17 16:50 Bedside Glucose 130 mg/dl Assessment & Plan CELLULITIS LEFT FOOT AND LEG Presented with cellulitis of left lower extremity that started with left third toe. Left foot Xray showed no conventional radiographic evidence of acute osteomyelitis On admission C-reactive protein 7.48, Lactic acid 1.2. Afebrile and no leukocytosis Blood cultures No growth Received IV vancomycin and ceftriaxone. Abx changed to daptomycin and piperacillin/tazobactam. ID on board recommended to continue current therapy Clinically improved LEFT KNEE EFFUSION Underlying rheumatoid arthritis. S/P Day 2 Left knee arthroscopic irrigation and debridement done by Dr. Marin Orthopedics consulted and knee aspirated Synovial fluid WBC count 106,600. No crystals were seen. synovial fluid positive for gram positive cocci has been on dapto Abx can change to Vanco continue PT/OT to work on range of motion Continue pain control CORONARY ARTERY DISEASE No anginal symptoms. Continue aspirin, metoprolol. Statin on hold due to therapy with daptomycin. Stable ATRIAL FIBRILLATION / FLUTTER Chronic AF. On metoprolol for rate control. Anticoagulation discontinued by Cardiology due to epistaxis and unsteady gait. Continue aspirin and metoprolol. Stable HYPERTENSION Continue metoprolol and losartan with hold parameters BP stable CKD III / GLEN Baseline creatinine 1.6. Creatinine on admission1.9. Serum creatinine improved from 2.4 to 1.9 today Continue holding furosemide. Avoid potential nephrotoxins when able. 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 Hgb A1C 7.0 on 06/30/16, Controlled Lantus + NovoLog per protocol during hospital stay. DYSLIPIDEMIA Hold simvastatin due to therapy with daptomycin. RHEUMATOID ARTHRITIS Hold methotrexate pending resolution of cellulitis. VTE PROPHYLAXIS Moderate risk for VTE. SQ heparin. RESUSCITATION STATUS DNR DISPOSITION Once medically stable Family Medicine follow-up with Dr. Narvaez. Cardiology follow-up with Dr. Luis Stewart. Rheumatology follow-up with Dr. Bahena. Nephrology follow-up with Dr. Luo. Consultants: [facility] Orthopedic Surgery Vascular Surgery . Procedures: cardiac monitoring IV meds venous duplex left lower extremity arterial duplex left lower extremity arthrocentesis left knee arthroscopic irrigation and debridement left knee by Dr. Marin 08/23/16 . Current Inpatient Medications: Current Inpatient Medications Medications (Trade) Dose Ordered Sig/Rosemarie Route Start Time Stop Time Status Last Admin Dose Admin Acetaminophen (Tylenol Tab) 650 mg Q4H PRN PO 08/20/16 16:00 09/19/16 15:59 08/21/16 21:39 650 MG Aspirin (Ecotrin Tab) 81 mg QAM PO 08/21/16 09:00 09/20/16 08:59 08/25/16 09:29 81 MG Folic Acid (Folvite Tab) 1 mg QAM PO 08/21/16 09:00 09/20/16 08:59 08/25/16 09:29 1 MG Losartan Potassium (coZAAR TAB) 12.5 mg DAILY PO 08/21/16 09:00 09/20/16 08:59 08/25/16 09:30 12.5 MG Metoprolol Tartrate (Lopressor Tab) 25 mg BID PO 08/20/16 21:00 09/19/16 20:59 08/25/16 09:30 25 MG Multivitamins (Multivitamin Tab) 1 tab DAILY PO 08/21/16 09:00 09/20/16 08:59 08/25/16 09:29 1 TAB Potassium Chloride (Klor-Con M10) 10 meq DAILY PO 08/21/16 09:00 09/20/16 08:59 08/25/16 09:29 10 MEQ Insulin Aspart (novoLOG ASPART) SLIDING SCALE G... ACHS SC 08/20/16 21:00 09/19/16 20:59 08/25/16 18:34 6 UNITS Glucose (Glucose 40% Gel) 15-30 GRAMS 15 GRAMS... UD PRN PO 08/20/16 21:00 09/19/16 20:59 Glucose (Glucose Chew Tab) 4-8 Tablets 4 Tabl... UD PRN PO 08/20/16 21:00 09/19/16 20:59 Dextrose (Dextrose 50% 50ML Syringe) 25-50ML OF 50% DW IV FOR... UD PRN IV 08/20/16 21:00 09/19/16 20:59 Glucagon (Glucagon Inj) 1 mg UD PRN SQ 08/20/16 21:00 09/19/16 20:59 Piperacillin Sod/ Tazobactam Sod 3.375 gm/Dextrose 115 ml @ 28.75 mls/ hr Q8H IV 08/21/16 06:00 08/31/16 05:59 08/25/16 13:43 28.75 MLS/HR Piperacillin Sod/ Tazobactam Sod (Consult) 1 [facility] PRN N/A 08/21/16 01:00 09/20/16 00:59 Hydromorphone HCl (Dilaudid Inj) 0.5 mg Q3H PRN IV 08/22/16 00:00 09/05/16 00:00 08/24/16 00:01 0.5 MG Oxycodone HCl (Roxicodone Immediate Rel Tab) 5 mg Q6H PRN PO 08/22/16 00:00 09/05/16 00:00 08/23/16 21:47 5 MG Insulin Glargine (Lantus Solostar Pen) 20 unit HS SC 08/22/16 21:00 09/21/16 20:59 08/24/16 21:21 20 UNIT Daptomycin 500 mg/ Sodium Chloride 60 ml @ 100 mls/hr Q2D@0900 IV 08/25/16 09:00 08/30/16 23:59 08/25/16 09:36 100 MLS/HR Daptomycin (Consult) 1 [facility] PRN N/A 08/23/16 12:30 09/22/16 12:29 Senna (Senokot Tab) 17.2 mg HS PO 08/23/16 21:00 09/22/16 20:59 08/23/16 21:37 17.2 MG Docusate Sodium (coLACE CAP) 100 mg BID PO 08/23/16 21:00 09/22/16 20:59 08/25/16 09:29 100 MG Heparin Sodium (Porcine) (Heparin Sq 5000 Unit/0.5ml) 5,000 unit Q12 SQ 08/24/16 09:00 09/20/16 08:59 08/25/16 09:32 5,000 UNIT Ondansetron HCl (Zofran Inj) 4 mg Q6H PRN IV 08/23/16 22:30 09/22/16 22:29 08/24/16 06:41 4 MG Sodium Chloride 1,000 ml @ 80 mls/hr [id number] IV 08/23/16 22:30 09/22/16 22:29 08/25/16 13:38 80 MLS/HR Ioversol (Optiray 320) 125 ml UD PRN IV 08/24/16 10:00 08/28/16 09:59
--- NOTE | 2016-08-25 20:18 | Infectious Disease Progress Nt ---
Progress Note Date of Service Aug 25, 2016. Subjective Pt evaluation today including: conversation w/ patient, physical exam, chart review, lab review, review of studies, conversation w/ application development consultant, review of inpatient medication list patient states the pain in knee has improved. Cultures now growing gram- positive cocci. Remains afebrile. Denies any other new complaints. Continues tolerating antibiotic without apparent difficulty. All Other Systems: Reviewed and Negative Medications Current Inpatient Medications Medications (Trade) Dose Ordered Sig/Rosemarie Route Start Time Stop Time Status Last Admin Dose Admin Acetaminophen (Tylenol Tab) 650 mg Q4H PRN PO 08/20/16 16:00 09/19/16 15:59 08/21/16 21:39 650 MG Aspirin (Ecotrin Tab) 81 mg QAM PO 08/21/16 09:00 09/20/16 08:59 08/25/16 09:29 81 MG Folic Acid (Folvite Tab) 1 mg QAM PO 08/21/16 09:00 09/20/16 08:59 08/25/16 09:29 1 MG Losartan Potassium (coZAAR TAB) 12.5 mg DAILY PO 08/21/16 09:00 09/20/16 08:59 08/25/16 09:30 12.5 MG Metoprolol Tartrate (Lopressor Tab) 25 mg BID PO 08/20/16 21:00 09/19/16 20:59 08/25/16 09:30 25 MG Multivitamins (Multivitamin Tab) 1 tab DAILY PO 08/21/16 09:00 09/20/16 08:59 08/25/16 09:29 1 TAB Potassium Chloride (Klor-Con M10) 10 meq DAILY PO 08/21/16 09:00 09/20/16 08:59 08/25/16 09:29 10 MEQ Insulin Aspart (novoLOG ASPART) SLIDING SCALE G... ACHS SC 08/20/16 21:00 09/19/16 20:59 08/25/16 18:34 6 UNITS Glucose (Glucose 40% Gel) 15-30 GRAMS 15 GRAMS... UD PRN PO 08/20/16 21:00 09/19/16 20:59 Glucose (Glucose Chew Tab) 4-8 Tablets 4 Tabl... UD PRN PO 08/20/16 21:00 09/19/16 20:59 Dextrose (Dextrose 50% 50ML Syringe) 25-50ML OF 50% DW IV FOR... UD PRN IV 08/20/16 21:00 09/19/16 20:59 Glucagon (Glucagon Inj) 1 mg UD PRN SQ 08/20/16 21:00 09/19/16 20:59 Piperacillin Sod/ Tazobactam Sod 3.375 gm/Dextrose 115 ml @ 28.75 mls/ hr Q8H IV 08/21/16 06:00 08/31/16 05:59 08/25/16 13:43 28.75 MLS/HR Piperacillin Sod/ Tazobactam Sod (Consult) 1 ea UD PRN N/A 08/21/16 01:00 09/20/16 00:59 Hydromorphone HCl (Dilaudid Inj) 0.5 mg Q3H PRN IV 08/22/16 00:00 09/05/16 00:00 08/24/16 00:01 0.5 MG Oxycodone HCl (Roxicodone Immediate Rel Tab) 5 mg Q6H PRN PO 08/22/16 00:00 09/05/16 00:00 08/23/16 21:47 5 MG Insulin Glargine (Lantus Solostar Pen) 20 unit HS SC 08/22/16 21:00 09/21/16 20:59 08/24/16 21:21 20 UNIT Daptomycin 500 mg/ Sodium Chloride 60 ml @ 100 mls/hr Q2D@0900 IV 08/25/16 09:00 08/30/16 23:59 08/25/16 09:36 100 MLS/HR Daptomycin (Consult) 1 ea UD PRN N/A 08/23/16 12:30 09/22/16 12:29 Senna (Senokot Tab) 17.2 mg HS PO 08/23/16 21:00 09/22/16 20:59 08/23/16 21:37 17.2 MG Docusate Sodium (coLACE CAP) 100 mg BID PO 08/23/16 21:00 09/22/16 20:59 08/25/16 09:29 100 MG Heparin Sodium (Porcine) (Heparin Sq 5000 Unit/0.5ml) 5,000 unit Q12 SQ 08/24/16 09:00 09/20/16 08:59 08/25/16 09:32 5,000 UNIT Ondansetron HCl (Zofran Inj) 4 mg Q6H PRN IV 08/23/16 22:30 09/22/16 22:29 08/24/16 06:41 4 MG Sodium Chloride 1,000 ml @ 80 mls/hr [id number] IV 08/23/16 22:30 09/22/16 22:29 08/25/16 13:38 80 MLS/HR Ioversol (Optiray 320) 125 ml UD PRN IV 08/24/16 10:00 08/28/16 09:59 Objective Vital Signs Date Time Temp Pulse Resp B/P (MAP) Pulse Ox O2 Delivery O2 Flow Rate FiO2 08/25/16 15:07 36.8 73 18 113/61 (78) 98 08/25/16 12:02 36.6 80 14 101/60 (74) 97 Room Air 08/25/16 07:56 36.8 87 18 105/61 (76) 93 Room Air 08/25/16 07:10 Room Air 08/25/16 00:05 98 08/25/16 00:05 Room Air 08/24/16 23:00 36.7 108 18 141/76 (97) 96 Room Air 08/24/16 21:19 106 124/51 (75) Physical Exam General Appearance: WD/WN, no apparent distress Eyes: normal inspection, EOMI, sclerae normal ENT: normal ENT inspection, pharynx normal Neck: supple, no adenopathy, thyroid normal, trachea midline Respiratory/Chest: chest non-tender, lungs clear, normal breath sounds, no respiratory distress Cardiovascular: regular rate, rhythm, no gallop, no murmur Abdomen: normal bowel sounds, non tender, soft, no organomegaly Extremities: non-tender, + slow capillary refill, + pertinent finding (left knee swelling) Neurologic/Psychiatric: alert, oriented x 3 Skin: normal color, + pertinent finding (no worsening cellulitis) Lymphatic: no adenopathy Laboratory Results RUN DATE: 08/25/16 [facility] LAB PAGE 1 RUN TIME: 1142 Specimen Inquiry PATIENT: MIGUEL GAFFNEY [facility] [facility] [place] # : [id number] AGE/SX: 86/M ROOM: N383 REG : 08/20/[address]: Christofer Shaikh M.D. : 1930 BED: 2 DIS : STATUS: ADM IN TLOC: SPEC #: [id number] MARY: 08/23/16 STATUS: RES REQ #: [id number] RECD: 08/23/[address]: Seng Zarate M.D. SOURCE: JOINT FLSP ENTR: 08/23/16 [facility] DR: Irvin Garcia MD SPDESC: KNEE LEFT Arnol Morelos MD OncuSydney I., Seng Ramos III, M.D. Sumner, Sabrina M., DO Simoni, Eugene J., M.D. ORDERED: AER/PALMA CULTSMR Procedure Result Verified Site GRAM STAIN Final 08/24/16-747 RESULT MANY WBCs SEEN NO ORGANISMS SEEN OR AER/PALMA CULT Preliminary 08/25/16-1141 Organism 1 GRAM POSITIVE COCCI QUANITY RARE SENS SENSITIVITIES DEPENDENT ON FURTHER IDENTIFICATION Last 24 Hours Test 08/24/16 21:15 08/25/16 07:22 08/25/16 08:13 08/25/16 12:04 Bedside Glucose 186 mg/dl 139 mg/dl 152 mg/dl White Blood Count 6.64 K/uL Red Blood Count 2.90 M/uL Hemoglobin 8.3 g/dL Hematocrit 27.1 % Mean Corpuscular Volume 93.4 fL Mean Corpuscular Hemoglobin 28.6 pg Mean Corpuscular Hemoglobin Concent 30.6 g/dl RDW Standard Deviation 55.3 fL RDW Coefficient of Variation 16.2 % Platelet Count 162 K/uL Mean Platelet Volume 9.9 fL Sodium Level 141 mmol/L Potassium Level 4.1 mmol/L Chloride Level 106 mmol/L Carbon Dioxide Level 28 mmol/L Anion Gap 7.0 mmol/L Blood Urea Nitrogen 30 mg/dl Creatinine 1.90 mg/dl Est Creatinine Clear Calc Drug Dose 27.7 ml/min Estimated GFR () 35.7 Estimated GFR (Non- 30.8 BUN/Creatinine Ratio 15.9 Random Glucose 114 mg/dl Calcium Level 8.1 mg/dl Test 08/25/16 16:50 Bedside Glucose 130 mg/dl Patient Name: MIGUEL GAFFNEY Unit Number: [id number] Dictated: 08/25/16 1340 Transcribed: 08/25/16 1340 MS Printed Date/Time: [~ rep prt dt]/[~ rep prt tm] [~ rep ct labl] - [~ rep ct ivnm] [facility] [place] [address] Dictated: 08/25/16 1340 Transcribed: 08/25/16 1340 MS Printed Date/Time: [~ rep prt dt]/[~ rep prt tm] [~ rep ct labl] - [~ rep ct ivnm] CT angiogram of the extremities ANGIO AA KIRK LE RUNOFF CLINICAL HISTORY: Cellulitis peripheral vascular disease TECHNIQUE: Transaxial acquisition with multi axial reformatted images COMPARISON STUDY: None FINDINGS: Severe atherosclerotic change throughout all major arterial structures of the abdomen and pelvis and lower extremities. There are small bilateral pleural effusions. There is a high-grade stenotic process of the celiac axis as well as the origin of the superior mesenteric arteries. There is involvement of the mesenteric vessels. Abdominal aorta shows extensive atherosclerotic chronic change and ectasia throughout. Iliac vasculature shows extensive atherosclerotic change. There are findings of high-grade intercritical stenosis origin of the femoral artery on the right. There is a dense multilevel arterial occlusive change with associated calcification throughout the femoral arteries bilaterally. Luminal presence is minimal. Collateral vessels are present. The runoff vessels of the lower legs shows severe arterial occlusive change throughout. There is severe compromise of the lumen of the popliteal arteries, with severe arterial occlusive change of the right of the lower legs. Minimal flow is identified throughout. The severity of the disease is sufficient to diminish the importance of any focal lesion. Minimal flow characteristics are identified to the lower legs and feet. IMPRESSION: 1. Severe arterial occlusive/atherosclerotic change of all major arterial structures of the legs and lower legs. 2. Vascular flow is severely compromised throughout. 3. All vessels demonstrate evidence for at least moderate collateral vessel formation. 4. Significant arterial occlusive change of the arterial structures of the abdomen and pelvis, including arterial structures of the mesentery 5. The severity of the disease is sufficiently severe and widespread that any one focal area of narrowing is felt to be insignificant in relation to the systemic arterial occlusive change throughout. 6. Severe compromise of arterial flow throughout all major vessels of the legs and lower legs. Electronically signed by: Morteza King M.D. 08/25/2016 1:55 PM Dictated Date/Time: 08/25/2016 1:40 PM The status of this report is Signed. Draft = Not yet reviewed or approved by Radiologist. Signed = Reviewed and approved by Radiologist. <AttendingPhy>Christofer Shaikh M.D.</AttendingPhy> <FamilyPhy>Seng Narvaez III, M.D.</FamilyPhy> <PrimaryPhy>Seng Narvaez III, M.D.</PrimaryPhy> < UnitNumber>[id number]</UnitNumber> <VisitNumber>[id number]</VisitNumber> < PatientName>MIGUEL GAFFNEY</PatientName> <DateOfBirth>1930</DateOfBirth > <Location>[facility]</Location> <ServiceDate>08/20/16</ServiceDate> <MNE>ESINDI</ MNE> <OrderingPhy>Mi Richardson PA-C</OrderingPhy> <OrderingPhyMNE>f rep ord dr varela</OrderingPhyMNE> <DictatingPhyMNE>f rep dict dr varela</DictatingPhyMNE > <CCListMNE>f rep ct kaidene</CCListMNE> <AdmittingPhyMNE>f pt admit dr varela</ AdmittingPhyMNE> <AttendingPhyMNE>f pt attend dr varela</AttendingPhyMNE> <ConsultingPhyMNE>f pt consult dr varela</ConsultingPhyMNE> <FamilyPhyMNE>f pt fam dr varela</FamilyPhyMNE> <OtherPhyMNE>f pt other dr varela</OtherPhyMNE> < PrimaryPhyMNE>f pt prim care dr varela</PrimaryPhyMNE> <ReferringPhyMNE>f pt referring dr varela</ReferringPhyMNE> Assessment and Plan (1) Peripheral vascular disease Status: 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 Suspect patient may need partial toe amputation, but need to reassess his vascular system prior to any surgical intervention. Continue present Rx, will adjust as necessary.
[2016-08-25 20:30] VITALS: BP 157/61; PULSE 80
[2016-08-25] MEDS: SENNA 8.6 MG TAB PO SCH (20:31)
[2016-08-25] MEDS: INSULIN GLARGINE SOLOSTAR 100 UNITS/ML 3 ML PEN SC SCH (21:06)
[2016-08-25 23:18] VITALS: BP 119/71; PULSE 102; TEMP 36.7; O2SAT 99
[2016-08-26] VITALS (17 sets, daily range): BP systolic 102–155; BP diastolic 54–84; PULSE 72–112; TEMP 36.3–37.1; O2SAT 94–97
[2016-08-26] MEDS: PIPERACILL/TAZOBAC IV 3.375 GM in DEXTROSE 5% 100ML IV SCH ×3 (05:27→21:22)
[2016-08-26 08:05] LABS: HEMATOCRIT 25.6 % (42-52); MEAN CELL VOLUME 93.8 fL (80-100); MEAN CORPUSCULAR HEMOGLOBIN 28.9 pg (25-34); MEAN CORPUSCULAR HGB CONC 30.9 g/dl (32-36); MEAN PLATELET VOLUME 9.7 fL (7.4-10.4); PLATELET COUNT 161 K/uL (130-400); RED BLOOD COUNT 2.73 M/uL (4.7-6.1)
[2016-08-26 08:39] LABS: BUN/CREATININE RATIO 16.2 (10-20); CREATININE 1.9 mg/dl (0.60-1.40); POTASSIUM 3.8 mmol/L (3.5-5.1)
[2016-08-26 08:53] LABS: CALCIUM 8.4 mg/dl (8.5-10.1)
--- NOTE | 2016-08-26 08:56 | Orthopedic Progress Note ---
Orthopedic Progress Note Date of Service Aug 26, 2016. Subjective Post OP Day: 3 Reports: feeling well, Denies: complaints, chest pain, SOB, nausea / vomiting, light headedness Objective calves soft nontender, N/V intact, capillary refill less than 2 sec., dressing C /D/I, incision C/D/I, A&O x3, toes mobile, CMS intact no drainage on dressings, minimal swelling of Left knee. No redness. No pain with palpation. Date Time Temp Pulse Resp B/P (MAP) Pulse Ox O2 Delivery O2 Flow Rate FiO2 08/26/16 07:49 94 Room Air 08/26/16 07:45 36.7 74 18 110/68 (82) 94 Room Air 08/25/16 23:21 Room Air 08/25/16 23:18 36.7 102 18 119/71 (87) 99 Room Air 08/25/16 20:30 80 157/61 (93) 08/25/16 20:20 Room Air 08/25/16 15:07 36.8 73 18 113/61 (78) 98 08/25/16 12:02 36.6 80 14 101/60 (74) 97 Room Air Laboratory Results 24 Hours: Test 08/26/16 07:31 Hematocrit 25.6 % Hemoglobin 7.9 g/dL Assessment & Plan Assessment: POD 3 s/p Left knee arthroscopic irrigation and debridement. Plan: Cont IV ABX Cont PO pain medication as needed. Ok to be out of bed as tolerated with the assistance of a walker. Allowed for full ROM as tolerated left knee Ice to left knee as tolerated. Will discuss findings with Dr. Marin. (1) Peripheral vascular disease Chronic Discharge Planning Discharge Planning: uncertain
[2016-08-26] MEDS: MULTIVITAMIN TAB PO SCH (09:45)
[2016-08-26] MEDS: ASPIRIN 81 MG ECTAB PO SCH (09:45)
[2016-08-26] MEDS: DOCUSATE SODIUM 100 MG CAP PO SCH ×2 (09:46→21:20)
[2016-08-26] MEDS: POTASSIUM CHLORIDE 10 MEQ TABCR PO SCH (09:46)
[2016-08-26] MEDS: METOPROLOL TARTRATE 25 MG TAB PO SCH ×2 (09:48→21:20)
[2016-08-26] MEDS: INSULIN ASPART 100 UNITS/ML 3 ML PEN SC SCH ×4 (09:52→21:55)
[2016-08-26] MEDS: HEPARIN SOD 5000 UNIT/0.5 ML CARP SQ SCH ×2 (09:53→22:00)
[2016-08-26] MEDS: LOSARTAN POTASSIUM 25 MG TAB PO SCH (11:03)
[2016-08-26] MEDS: SODIUM CHLORIDE 0.9% 1000ML 1,000 ML IV SCH (13:30)
--- NOTE | 2016-08-26 17:22 | PROGRESS NOTE ---
DATE: 08/26/2016 SUBJECTIVE: Mr. Flores is resting comfortably in bed. He reports the knee feels better. He has been up with physical therapy. He is afebrile. His vital signs are stable. White count 5, hemoglobin 8, platelet count is 161. Chemistries are noted. One of his cultures from August 23 is growing out Gram-positive cocci, identification is pending. Fungal AFB and the other cultures are negative. OBJECTIVE: On exam, he can wiggle his toes and his ankle. He does not have palpable pedal pulses. There is diminished sensation in the foot. He can do a leg raise with a mild lag and range his knee from about 0 to almost 90. He does have a small effusion within the knee. The portals are benign. There is no notable erythema. There is mild swelling of the left lower leg. He did have a CT scan today done as part of his vascular workup. Verbal informed consent is obtained. Sterile technique is utilized to aspirate 37 mL of blood from the left knee. Treatment options, risks, benefits, aftercare, verbal consent and timeout were done. IMPRESSION: 1. Probable septic arthritis of the left knee. 2. Peripheral vascular disease. 3. Gangrenous left foot 3rd toe. 4. Coronary artery disease, atrial fibrillation, hypertension and chronic kidney disease, type 2 diabetes, rheumatoid arthritis. PLAN: He is recovering well and seems to be improving. I think eventually I will want to get a follow up sed rate, C-reactive protein. Continue antibiotics and physical therapy. Hold methotrexate at least until his wounds are healed. Will follow up on cultures to determine identification of bacteria. He had a small collection of blood within the knee, which I evacuated. There is no purulence. Decubitus precautions. Pressure was held until bleeding stopped and Jigar wrap was applied.
--- NOTE | 2016-08-26 18:38 | Progress Note ---
Medicine Progress Note Date & Time of Visit: Aug 26, 2016 at 18:24. Subjective Pt was seen and examined Sitting in bed with no distress Pt said that his knee feels much better he said that he did ok with PT today he denies any chest pain, palpitation and SOB Objective Last 8 Hrs Date Time Temp Pulse Resp B/P (MAP) Pulse Ox O2 Delivery O2 Flow Rate FiO2 08/26/16 16:53 36.5 92 18 155/60 (91) 96 Room Air 08/26/16 14:00 36.7 77 22 127/72 95 08/26/16 13:54 36.7 77 22 127/72 95 08/26/16 13:00 37.1 93 22 143/84 94 08/26/16 12:45 36.3 88 22 138/70 96 08/26/16 12:30 36.4 88 24 121/74 94 08/26/16 12:14 36.5 86 24 143/72 95 08/26/16 11:40 36.6 76 18 138/70 97 08/26/16 11:03 133/72 (92) 08/26/16 11:00 72 123/62 (82) Physical Exam: General- No acute distress Head- atraumatic Eyes- PERRL, EOMI ENT- oropharynx clear Neck- supple, no JVD Lungs- clear to auscultation Heart- irregular rhythm; +Systolic murmur Abdomen- normal bowel sounds, soft Extremities-no calf tenderness, Left knee is wrap with ruthie bandage. 3rd toe on Left foot is black (gangrenous) in color and covered with bandage. Neuro- alert, oriented, PERRL, EOMI; no facial palsy; no dysarthria Skin- warm & dry Laboratory Results: Last 24 Hours Test 08/25/16 20:28 08/25/16 20:39 08/26/16 07:31 08/26/16 07:59 Bedside Glucose 166 mg/dl 142 mg/dl 126 mg/dl White Blood Count 5.60 K/uL Red Blood Count 2.73 M/uL Hemoglobin 7.9 g/dL Hematocrit 25.6 % Mean Corpuscular Volume 93.8 fL Mean Corpuscular Hemoglobin 28.9 pg Mean Corpuscular Hemoglobin Concent 30.9 g/dl RDW Standard Deviation 56.4 fL RDW Coefficient of Variation 16.5 % Platelet Count 161 K/uL Mean Platelet Volume 9.7 fL Sodium Level 140 mmol/L Potassium Level 3.8 mmol/L Chloride Level 107 mmol/L Carbon Dioxide Level 25 mmol/L Anion Gap 8.0 mmol/L Blood Urea Nitrogen 31 mg/dl Creatinine 1.90 mg/dl Est Creatinine Clear Calc Drug Dose 27.7 ml/min Estimated GFR () 35.7 Estimated GFR (Non- 30.8 BUN/Creatinine Ratio 16.2 Random Glucose 107 mg/dl Calcium Level 8.4 mg/dl Test 08/26/16 11:53 08/26/16 17:39 Bedside Glucose 144 mg/dl 117 mg/dl Assessment & Plan CELLULITIS LEFT FOOT AND LEG Presented with cellulitis of left lower extremity that started with left third toe. Left foot Xray showed no conventional radiographic evidence of acute osteomyelitis On admission C-reactive protein 7.48, Lactic acid 1.2. Afebrile and no leukocytosis Blood cultures No growth Received IV vancomycin and ceftriaxone. Abx changed to daptomycin and piperacillin/tazobactam. ID on board recommended to continue current therapy Clinically improved LEFT KNEE EFFUSION Underlying rheumatoid arthritis. S/P Day 2 Left knee arthroscopic irrigation and debridement done by Dr. Marin Orthopedics consulted and knee aspirated Synovial fluid WBC count 106,600. No crystals were seen. synovial fluid positive for gram positive cocci has been on dapto and zosyn waiting for sensitivity ID recommended to continue abx continue PT/OT to work on range of motion Continue pain control ACUTE BLOOD LOSS ANEMIA Possible related to post-op Hbg 7.9 transfused 1 unit prbc today Monitor CBC CORONARY ARTERY DISEASE No anginal symptoms. Continue aspirin, metoprolol. Will hold aspirin if h/h drop further Statin on hold due to therapy with daptomycin. Stable Left Third Toe Gangrene Arterial doppler showed findings suggest occlusion of the mid to distal left superficial femoral artery with reconstitution in the popliteal artery and likely occlusion of the distal posterior tibial artery. CTA B/L LE showed severe arterial occlusive/atherosclerotic change of all major arterial structures of the legs and lower legs case discussed with vascular Dr. Jefferson that waiting his renal function to improve for possible amputation of L third toe Continue monitor ATRIAL FIBRILLATION / FLUTTER Chronic AF. On metoprolol for rate control. Anticoagulation discontinued by Cardiology due to epistaxis and unsteady gait. Continue aspirin and metoprolol. Stable HYPERTENSION Continue metoprolol and losartan with hold parameters BP stable CKD III / GLEN Baseline creatinine 1.6. Creatinine on admission1.9. Serum creatinine improved from 2.4 to 1.9 today Continue holding furosemide. Avoid potential nephrotoxins when able. 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 Hgb A1C 7.0 on 06/30/16, Controlled Lantus + NovoLog per protocol during hospital stay. DYSLIPIDEMIA Hold simvastatin due to therapy with daptomycin. RHEUMATOID ARTHRITIS Hold methotrexate pending resolution of cellulitis. VTE PROPHYLAXIS Moderate risk for VTE. SQ heparin. RESUSCITATION STATUS DNR DISPOSITION Will transfer to rehab once medically stable Family Medicine follow-up with Dr. Narvaez. Cardiology follow-up with Dr. Luis Stewart. Rheumatology follow-up with Dr. Bahena. Nephrology follow-up with Dr. Luo. Consultants: [facility] Orthopedic Surgery Vascular Surgery . Procedures: cardiac monitoring IV meds venous duplex left lower extremity arterial duplex left lower extremity arthrocentesis left knee arthroscopic irrigation and debridement left knee by Dr. Marin 08/23/16 . Current Inpatient Medications: Current Inpatient Medications Medications (Trade) Dose Ordered Sig/Rosemarie Route Start Time Stop Time Status Last Admin Dose Admin Acetaminophen (Tylenol Tab) 650 mg Q4H PRN PO 08/20/16 16:00 09/19/16 15:59 08/21/16 21:39 650 MG Aspirin (Ecotrin Tab) 81 mg QAM PO 08/21/16 09:00 09/20/16 08:59 08/26/16 09:45 81 MG Folic Acid (Folvite Tab) 1 mg QAM PO 08/21/16 09:00 09/20/16 08:59 08/26/16 09:44 1 MG Losartan Potassium (coZAAR TAB) 12.5 mg DAILY PO 08/21/16 09:00 09/20/16 08:59 08/26/16 11:03 12.5 MG Metoprolol Tartrate (Lopressor Tab) 25 mg BID PO 08/20/16 21:00 09/19/16 20:59 08/26/16 09:48 25 MG Multivitamins (Multivitamin Tab) 1 tab DAILY PO 08/21/16 09:00 09/20/16 08:59 08/26/16 09:45 1 TAB Potassium Chloride (Klor-Con M10) 10 meq DAILY PO 08/21/16 09:00 09/20/16 08:59 08/26/16 09:46 10 MEQ Insulin Aspart (novoLOG ASPART) SLIDING SCALE G... ACHS SC 08/20/16 21:00 09/19/16 20:59 08/26/16 13:30 5 UNITS Glucose (Glucose 40% Gel) 15-30 GRAMS 15 GRAMS... UD PRN PO 08/20/16 21:00 09/19/16 20:59 Glucose (Glucose Chew Tab) 4-8 Tablets 4 Tabl... UD PRN PO 08/20/16 21:00 09/19/16 20:59 Dextrose (Dextrose 50% 50ML Syringe) 25-50ML OF 50% DW IV FOR... UD PRN IV 08/20/16 21:00 09/19/16 20:59 Glucagon (Glucagon Inj) 1 mg UD PRN SQ 08/20/16 21:00 09/19/16 20:59 Piperacillin Sod/ Tazobactam Sod 3.375 gm/Dextrose 115 ml @ 28.75 mls/ hr Q8H IV 08/21/16 06:00 10/02/16 05:59 08/26/16 14:12 28.75 MLS/HR Piperacillin Sod/ Tazobactam Sod (Consult) 1 ea UD PRN N/A 08/21/16 01:00 09/20/16 00:59 Hydromorphone HCl (Dilaudid Inj) 0.5 mg Q3H PRN IV 08/22/16 00:00 09/05/16 00:00 08/24/16 00:01 0.5 MG Oxycodone HCl (Roxicodone Immediate Rel Tab) 5 mg Q6H PRN PO 08/22/16 00:00 09/05/16 00:00 08/23/16 21:47 5 MG Insulin Glargine (Lantus Solostar Pen) 20 unit HS SC 08/22/16 21:00 09/21/16 20:59 08/25/16 21:06 20 UNIT Daptomycin 500 mg/ Sodium Chloride 60 ml @ 100 mls/hr Q2D@0900 IV 08/25/16 09:00 10/06/16 08:59 08/25/16 09:36 100 MLS/HR Daptomycin (Consult) 1 ea UD PRN N/A 08/23/16 12:30 09/22/16 12:29 Senna (Senokot Tab) 17.2 mg HS PO 08/23/16 21:00 09/22/16 20:59 08/25/16 20:31 17.2 MG Docusate Sodium (coLACE CAP) 100 mg BID PO 08/23/16 21:00 09/22/16 20:59 08/26/16 09:46 100 MG Heparin Sodium (Porcine) (Heparin Sq 5000 Unit/0.5ml) 5,000 unit Q12 SQ 08/24/16 09:00 09/20/16 08:59 08/26/16 09:53 5,000 UNIT Ondansetron HCl (Zofran Inj) 4 mg Q6H PRN IV 08/23/16 22:30 09/22/16 22:29 08/24/16 06:41 4 MG Sodium Chloride 1,000 ml @ 80 mls/hr [id number] IV 08/23/16 22:30 09/22/16 22:29 08/26/16 13:30 80 MLS/HR Ioversol (Optiray 320) 125 ml UD PRN IV 08/24/16 10:00 08/28/16 09:59
[2016-08-26] MEDS: SENNA 8.6 MG TAB PO SCH (21:00)
[2016-08-26] MEDS: INSULIN GLARGINE SOLOSTAR 100 UNITS/ML 3 ML PEN SC SCH (21:57)
[2016-08-27] MEDS: SODIUM CHLORIDE 0.9% 1000ML 1,000 ML IV SCH ×2 (00:01→14:26)
[2016-08-27] MEDS: PIPERACILL/TAZOBAC IV 3.375 GM in DEXTROSE 5% 100ML IV SCH ×3 (05:46→21:23)
[2016-08-27 06:59] LABS: HEMATOCRIT 30.2 % (42-52); MEAN CELL VOLUME 92.1 fL (80-100); MEAN CORPUSCULAR HEMOGLOBIN 28.4 pg (25-34); MEAN CORPUSCULAR HGB CONC 30.8 g/dl (32-36); MEAN PLATELET VOLUME 9.9 fL (7.4-10.4); PLATELET COUNT 191 K/uL (130-400); RED BLOOD COUNT 3.28 M/uL (4.7-6.1); WHITE BLOOD COUNT 7.19 K/uL (4.8-10.8)
[2016-08-27 07:29] LABS: CALCIUM 8.1 mg/dl (8.5-10.1); CREATININE 1.7 mg/dl (0.60-1.40); POTASSIUM 4.3 mmol/L (3.5-5.1)
[2016-08-27 07:58] VITALS: BP 129/69; PULSE 109; TEMP 36.3; O2SAT 97
--- NOTE | 2016-08-27 08:45 | Orthopedic Progress Note ---
Orthopedic Progress Note Date of Service Aug 27, 2016. Subjective Post OP Day: 4 Reports: feeling well, pain controlled w PO medications, Denies: complaints, chest pain, SOB, nausea / vomiting, light headedness, calf pain, using SHIRT SEWER Objective calves soft nontender, N/V intact, dressing C/D/I, incision C/D/I, A&O x3, toes mobile, CMS intact Cap refill is > 2 seconds and pedal pulses are non palpable over dorsalis pedis. Very faint posterior tibially. Knee has no notable effusion. ROM is 4- 90. Mild tenderness over anterior knee. NO erythema, ecchymosis or warmth noted. Sutures intact without fluctuance or drainage. Left 3rd toe is gangrenous in appearance and patient has no sensation to touch over pads of toes 2-5 due to neuropathy. Date Time Temp Pulse Resp B/P (MAP) Pulse Ox O2 Delivery O2 Flow Rate FiO2 08/26/16 23:58 Room Air 08/26/16 23:50 36.8 109 16 135/78 (97) 96 Room Air 08/26/16 21:17 98 122/68 (86) 08/26/16 19:48 36.8 112 18 133/74 (93) 94 Room Air 08/26/16 16:53 36.5 92 18 155/60 (91) 96 Room Air 08/26/16 16:00 Room Air 08/26/16 14:00 36.7 77 22 127/72 95 08/26/16 13:54 36.7 77 22 127/72 95 08/26/16 13:00 37.1 93 22 143/84 94 08/26/16 12:45 36.3 88 22 138/70 96 08/26/16 12:30 36.4 88 24 121/74 94 08/26/16 12:14 36.5 86 24 143/72 95 08/26/16 11:40 36.6 76 18 138/70 97 08/26/16 11:03 133/72 (92) 08/26/16 11:00 72 123/62 (82) 08/26/16 09:47 99 113/60 (77) 08/26/16 09:41 86 102/54 (70) Laboratory Results 24 Hours: Test 08/27/16 05:59 Hematocrit 30.2 % Hemoglobin 9.3 g/dL Assessment & Plan Assessment: POD 4 s/p Left knee arthroscopic irrigation and debridement. Plan: Cont IV ABX Cont PO pain medication as needed. Ok to be out of bed as tolerated with the assistance of a walker. Allowed for full ROM as tolerated left knee Ice to left knee as tolerated. Cont medical coverage. Will discuss findings with Dr. Marin. (1) Peripheral vascular disease Chronic Discharge Planning Discharge Planning: uncertain
[2016-08-27] MEDS: INSULIN ASPART 100 UNITS/ML 3 ML PEN SC SCH ×4 (09:01→20:56)
[2016-08-27] MEDS: DOCUSATE SODIUM 100 MG CAP PO SCH ×2 (09:02→19:55)
[2016-08-27] MEDS: LOSARTAN POTASSIUM 25 MG TAB PO SCH (09:02)
[2016-08-27] MEDS: POTASSIUM CHLORIDE 10 MEQ TABCR PO SCH (09:03)
[2016-08-27] MEDS: ASPIRIN 81 MG ECTAB PO SCH (09:03)
[2016-08-27] MEDS: METOPROLOL TARTRATE 25 MG TAB PO SCH ×2 (09:04→19:55)
[2016-08-27] MEDS: MULTIVITAMIN TAB PO SCH (09:05)
[2016-08-27] MEDS: HEPARIN SOD 5000 UNIT/0.5 ML CARP SQ SCH ×2 (09:08→20:02)
[2016-08-27] MEDS: DAPTOmycin IV 500 MG in SODIUM CHLORIDE 0.9% 50ML 50 ML IV SCH (09:16)
--- NOTE | 2016-08-27 11:39 | Progress Note ---
Progress Note Date of Service Aug 27, 2016. Progress Note Pt's CTA with runoff reviewed by Dr Flores, recommends pt to undergo LLE comm fem endarterectomy and LLE angio with intervention on TUESDAY, 08/31. Procedure , risks, benefits, and alternatives discussed with pt, he expresses understanding and agreement. Pt aware that his L 3rd toe will likely require amputation in future as well. Please call with any questions.
--- NOTE | 2016-08-27 14:07 | Infectious Disease Progress Nt ---
Progress Note Date of Service Aug 27, 2016. Subjective Pt evaluation today including: conversation w/ patient, physical exam, chart review, lab review, review of studies, conversation w/ literacy consultant, review of inpatient medication list Feeling better. Pain better controlled. No fever, no SOB. Vascular f/u noted, for intervention next week. Joint fluid now growing gram positive cocci. All Other Systems: Reviewed and Negative Medications Current Inpatient Medications Medications (Trade) Dose Ordered Sig/Rosemarie Route Start Time Stop Time Status Last Admin Dose Admin Acetaminophen (Tylenol Tab) 650 mg Q4H PRN PO 08/20/16 16:00 09/19/16 15:59 08/21/16 21:39 650 MG Aspirin (Ecotrin Tab) 81 mg QAM PO 08/21/16 09:00 09/20/16 08:59 08/27/16 09:03 81 MG Folic Acid (Folvite Tab) 1 mg QAM PO 08/21/16 09:00 09/20/16 08:59 08/27/16 09:03 1 MG Losartan Potassium (coZAAR TAB) 12.5 mg DAILY PO 08/21/16 09:00 09/20/16 08:59 08/27/16 09:02 12.5 MG Metoprolol Tartrate (Lopressor Tab) 25 mg BID PO 08/20/16 21:00 09/19/16 20:59 08/27/16 09:04 25 MG Multivitamins (Multivitamin Tab) 1 tab DAILY PO 08/21/16 09:00 09/20/16 08:59 08/27/16 09:05 1 TAB Potassium Chloride (Klor-Con M10) 10 meq DAILY PO 08/21/16 09:00 09/20/16 08:59 08/27/16 09:03 10 MEQ Insulin Aspart (novoLOG ASPART) SLIDING SCALE G... ACHS SC 08/20/16 21:00 09/19/16 20:59 08/27/16 13:39 5 UNITS Glucose (Glucose 40% Gel) 15-30 GRAMS 15 GRAMS... UD PRN PO 08/20/16 21:00 09/19/16 20:59 Glucose (Glucose Chew Tab) 4-8 Tablets 4 Tabl... UD PRN PO 08/20/16 21:00 09/19/16 20:59 Dextrose (Dextrose 50% 50ML Syringe) 25-50ML OF 50% DW IV FOR... UD PRN IV 08/20/16 21:00 09/19/16 20:59 Glucagon (Glucagon Inj) 1 mg UD PRN SQ 08/20/16 21:00 09/19/16 20:59 Piperacillin Sod/ Tazobactam Sod 3.375 gm/Dextrose 115 ml @ 28.75 mls/ hr Q8H IV 08/21/16 06:00 10/02/16 05:59 08/27/16 05:46 28.75 MLS/HR Piperacillin Sod/ Tazobactam Sod (Consult) 1 ea UD PRN N/A 08/21/16 01:00 09/20/16 00:59 Hydromorphone HCl (Dilaudid Inj) 0.5 mg Q3H PRN IV 08/22/16 00:00 09/05/16 00:00 08/24/16 00:01 0.5 MG Oxycodone HCl (Roxicodone Immediate Rel Tab) 5 mg Q6H PRN PO 08/22/16 00:00 09/05/16 00:00 08/23/16 21:47 5 MG Insulin Glargine (Lantus Solostar Pen) 20 unit HS SC 08/22/16 21:00 09/21/16 20:59 08/26/16 21:57 20 UNIT Daptomycin 500 mg/ Sodium Chloride 60 ml @ 100 mls/hr Q2D@0900 IV 08/25/16 09:00 10/06/16 08:59 08/27/16 09:16 100 MLS/HR Daptomycin (Consult) 1 ea UD PRN N/A 08/23/16 12:30 09/22/16 12:29 Senna (Senokot Tab) 17.2 mg HS PO 08/23/16 21:00 09/22/16 20:59 08/25/16 20:31 17.2 MG Docusate Sodium (coLACE CAP) 100 mg BID PO 08/23/16 21:00 09/22/16 20:59 08/27/16 09:02 100 MG Heparin Sodium (Porcine) (Heparin Sq 5000 Unit/0.5ml) 5,000 unit Q12 SQ 08/24/16 09:00 09/20/16 08:59 08/27/16 09:08 5,000 UNIT Ondansetron HCl (Zofran Inj) 4 mg Q6H PRN IV 08/23/16 22:30 09/22/16 22:29 08/24/16 06:41 4 MG Sodium Chloride 1,000 ml @ 80 mls/hr [id number] IV 08/23/16 22:30 09/22/16 22:29 08/27/16 00:01 80 MLS/HR Ioversol (Optiray 320) 125 ml UD PRN IV 08/24/16 10:00 08/28/16 09:59 Objective Vital Signs Date Time Temp Pulse Resp B/P (MAP) Pulse Ox O2 Delivery O2 Flow Rate FiO2 08/27/16 07:58 36.3 109 16 129/69 (89) 97 Room Air 08/26/16 23:58 Room Air 08/26/16 23:50 36.8 109 16 135/78 (97) 96 Room Air 08/26/16 21:17 98 122/68 (86) 08/26/16 19:48 36.8 112 18 133/74 (93) 94 Room Air 08/26/16 16:53 36.5 92 18 155/60 (91) 96 Room Air 08/26/16 16:00 Room Air Physical Exam General Appearance: WD/WN, no apparent distress Eyes: normal inspection, sclerae normal ENT: normal ENT inspection, pharynx normal Neck: supple, no adenopathy, trachea midline Respiratory/Chest: chest non-tender, lungs clear, normal breath sounds, no respiratory distress Cardiovascular: regular rate, rhythm, no gallop, no murmur Abdomen: normal bowel sounds, non tender, soft, no organomegaly Extremities: no calf tenderness, + slow capillary refill, + pertinent finding ( left knee swelling) Neurologic/Psychiatric: alert, oriented x 3 Skin: normal color, no rash, + pertinent finding (gangrenous left third toe, cellulitis improving) Lymphatic: no adenopathy Laboratory Results Last 24 Hours Test 08/26/16 17:39 08/26/16 20:58 08/27/16 05:59 08/27/16 08:14 Bedside Glucose 117 mg/dl 150 mg/dl 142 mg/dl White Blood Count 7.19 K/uL Red Blood Count 3.28 M/uL Hemoglobin 9.3 g/dL Hematocrit 30.2 % Mean Corpuscular Volume 92.1 fL Mean Corpuscular Hemoglobin 28.4 pg Mean Corpuscular Hemoglobin Concent 30.8 g/dl RDW Standard Deviation 56.1 fL RDW Coefficient of Variation 16.8 % Platelet Count 191 K/uL Mean Platelet Volume 9.9 fL Sodium Level 140 mmol/L Potassium Level 4.3 mmol/L Chloride Level 109 mmol/L Carbon Dioxide Level 22 mmol/L Anion Gap 9.0 mmol/L Blood Urea Nitrogen 29 mg/dl Creatinine 1.70 mg/dl Est Creatinine Clear Calc Drug Dose 31.0 ml/min Estimated GFR () 40.8 Estimated GFR (Non- 35.2 BUN/Creatinine Ratio 17.0 Random Glucose 131 mg/dl Calcium Level 8.1 mg/dl Assessment and Plan Cellulitis of the left foot and leg with gangrene of the left 3rd toe and now probable septic arthritis left knee, growing gram positive cocci in a diabetic male with peripheral vascular disease. Patient to continue on present Rx until final culture results available and vascular intervention performed. Will follow.
--- NOTE | 2016-08-27 15:20 | PROGRESS NOTE ---
DATE: 08/27/2016 DATE: 08/27/2016. SUBJECTIVE: Mr. Flores is sitting up comfortably. No problems reported. He was up with therapy. He is afebrile. His vital signs are stable. There has been no further development in terms of identification of his bacteria growing on his culture. His knee wounds are benign. There is no drainage. He has a trace perhaps a small amount of fluid in the left knee. There is no erythema. IMPRESSION: 1. Peripheral vascular disease, left third toe, gangrene. 2. Probable septic arthritis of the left knee. PLAN: He is doing well. Continue antibiotics until organism is identified. Continue PT. It appears that he will be here through the weekend pending surgery next week on his blood vessel.
[2016-08-27 15:49] VITALS: BP 138/68; PULSE 87; TEMP 37; O2SAT 98
--- NOTE | 2016-08-27 18:39 | Progress Note ---
Medicine Progress Note Date & Time of Visit: Aug 27, 2016 at 18:23. Subjective Pt was seen and examined Sitting in chair very comfortable with no distress Pt said that the knee feels much better he is able to move the extremities with no problem he said that the knee pain feels much better denies any chest pain, palpitation, fever, dizziness and sob Objective Last 8 Hrs Date Time Temp Pulse Resp B/P (MAP) Pulse Ox O2 Delivery O2 Flow Rate FiO2 08/27/16 15:49 37.0 87 16 138/68 (91) 98 Room Air Physical Exam: General- No acute distress Head- atraumatic Eyes- PERRL, EOMI ENT- oropharynx clear Neck- supple, no JVD Lungs- clear to auscultation Heart- irregular rhythm; +Systolic murmur Abdomen- normal bowel sounds, soft Extremities-no calf tenderness, Left knee is wrap with ruthie bandage. 3rd toe on Left foot is black (gangrenous) in color and covered with bandage. Neuro- alert, oriented, PERRL, EOMI; no facial palsy; no dysarthria Skin- warm & dry Laboratory Results: Last 24 Hours Test 08/26/16 20:58 08/27/16 05:59 08/27/16 08:14 08/27/16 12:19 Bedside Glucose 150 mg/dl 142 mg/dl 178 mg/dl White Blood Count 7.19 K/uL Red Blood Count 3.28 M/uL Hemoglobin 9.3 g/dL Hematocrit 30.2 % Mean Corpuscular Volume 92.1 fL Mean Corpuscular Hemoglobin 28.4 pg Mean Corpuscular Hemoglobin Concent 30.8 g/dl RDW Standard Deviation 56.1 fL RDW Coefficient of Variation 16.8 % Platelet Count 191 K/uL Mean Platelet Volume 9.9 fL Sodium Level 140 mmol/L Potassium Level 4.3 mmol/L Chloride Level 109 mmol/L Carbon Dioxide Level 22 mmol/L Anion Gap 9.0 mmol/L Blood Urea Nitrogen 29 mg/dl Creatinine 1.70 mg/dl Est Creatinine Clear Calc Drug Dose 31.0 ml/min Estimated GFR () 40.8 Estimated GFR (Non- 35.2 BUN/Creatinine Ratio 17.0 Random Glucose 131 mg/dl Calcium Level 8.1 mg/dl Test 08/27/16 17:12 Bedside Glucose 124 mg/dl Assessment & Plan CELLULITIS LEFT FOOT AND LEG Presented with cellulitis of left lower extremity that started with left third toe. Left foot Xray showed no conventional radiographic evidence of acute osteomyelitis On admission C-reactive protein 7.48, Lactic acid 1.2. Afebrile and no leukocytosis Blood cultures No growth Received IV vancomycin and ceftriaxone. Abx changed to daptomycin and piperacillin/tazobactam. ID on board recommended to continue current therapy with dapto and zosyn Waiting for final culture to adjust abx. Clinically improved LEFT KNEE EFFUSION Underlying rheumatoid arthritis. S/P Day 4 Left knee arthroscopic irrigation and debridement done by Dr. Marin Orthopedics consulted and knee aspirated Synovial fluid WBC count 106,600. No crystals were seen. synovial fluid positive for gram positive cocci has been on dapto and zosyn waiting for sensitivity ID recommended to continue abx continue PT/OT to work on range of motion Continue pain control ROM improved ACUTE BLOOD LOSS ANEMIA Possible related to post-op Hbg 9.3 transfused 1 unit prbc 0n 08/26 Monitor CBC CORONARY ARTERY DISEASE No anginal symptoms. Continue aspirin, metoprolol. Will hold aspirin if h/h drop further Statin on hold due to therapy with daptomycin. Stable Left Third Toe Gangrene Arterial doppler showed findings suggest occlusion of the mid to distal left superficial femoral artery with reconstitution in the popliteal artery and likely occlusion of the distal posterior tibial artery. CTA B/L LE showed severe arterial occlusive/atherosclerotic change of all major arterial structures of the legs and lower legs case discussed with vascular Dr. Jefferson that waiting his renal function to improve for possible amputation of L third toe Planing for vascular intervention on 08/[address] Jefferson Continue monitor ATRIAL FIBRILLATION / FLUTTER Chronic AF. On metoprolol for rate control. Anticoagulation discontinued by Cardiology due to epistaxis and unsteady gait. Continue aspirin and metoprolol. Stable HYPERTENSION Continue metoprolol and losartan with hold parameters BP stable CKD III / GLEN Baseline creatinine 1.6. Creatinine on admission1.9. Serum creatinine improved from 2.4 to 1.7 today Continue holding furosemide. Avoid potential nephrotoxins when able. 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 Hgb A1C 7.0 on 06/30/16, Controlled Lantus + NovoLog per protocol during hospital stay. DYSLIPIDEMIA Hold simvastatin due to therapy with daptomycin. RHEUMATOID ARTHRITIS Hold methotrexate pending resolution of cellulitis. VTE PROPHYLAXIS Moderate risk for VTE. SQ heparin. RESUSCITATION STATUS DNR DISPOSITION Will transfer to rehab once medically stable Family Medicine follow-up with Dr. Narvaez. Cardiology follow-up with Dr. Luis Stewart. Rheumatology follow-up with Dr. Bahena. Nephrology follow-up with Dr. Luo. Consultants: [facility] Vascular Surgery . Procedures: cardiac monitoring IV meds venous duplex left lower extremity arterial duplex left lower extremity arthrocentesis left knee arthroscopic irrigation and debridement left knee by Dr. Marin 08/23/16 . Current Inpatient Medications: Current Inpatient Medications Medications (Trade) Dose Ordered Sig/Rosemarie Route Start Time Stop Time Status Last Admin Dose Admin Acetaminophen (Tylenol Tab) 650 mg Q4H PRN PO 08/20/16 16:00 09/19/16 15:59 08/21/16 21:39 650 MG Aspirin (Ecotrin Tab) 81 mg QAM PO 08/21/16 09:00 09/20/16 08:59 08/27/16 09:03 81 MG Folic Acid (Folvite Tab) 1 mg QAM PO 08/21/16 09:00 09/20/16 08:59 08/27/16 09:03 1 MG Losartan Potassium (coZAAR TAB) 12.5 mg DAILY PO 08/21/16 09:00 09/20/16 08:59 08/27/16 09:02 12.5 MG Metoprolol Tartrate (Lopressor Tab) 25 mg BID PO 08/20/16 21:00 09/19/16 20:59 08/27/16 09:04 25 MG Multivitamins (Multivitamin Tab) 1 tab DAILY PO 08/21/16 09:00 09/20/16 08:59 08/27/16 09:05 1 TAB Potassium Chloride (Klor-Con M10) 10 meq DAILY PO 08/21/16 09:00 09/20/16 08:59 08/27/16 09:03 10 MEQ Insulin Aspart (novoLOG ASPART) SLIDING SCALE G... ACHS SC 08/20/16 21:00 09/19/16 20:59 08/27/16 13:39 5 UNITS Glucose (Glucose 40% Gel) 15-30 GRAMS 15 GRAMS... UD PRN PO 08/20/16 21:00 09/19/16 20:59 Glucose (Glucose Chew Tab) 4-8 Tablets 4 Tabl... UD PRN PO 08/20/16 21:00 09/19/16 20:59 Dextrose (Dextrose 50% 50ML Syringe) 25-50ML OF 50% DW IV FOR... UD PRN IV 08/20/16 21:00 09/19/16 20:59 Glucagon (Glucagon Inj) 1 mg UD PRN SQ 08/20/16 21:00 09/19/16 20:59 Piperacillin Sod/ Tazobactam Sod 3.375 gm/Dextrose 115 ml @ 28.75 mls/ hr Q8H IV 08/21/16 06:00 10/02/16 05:59 08/27/16 14:26 28.75 MLS/HR Piperacillin Sod/ Tazobactam Sod (Consult) 1 ea UD PRN N/A 08/21/16 01:00 09/20/16 00:59 Hydromorphone HCl (Dilaudid Inj) 0.5 mg Q3H PRN IV 08/22/16 00:00 09/05/16 00:00 08/24/16 00:01 0.5 MG Oxycodone HCl (Roxicodone Immediate Rel Tab) 5 mg Q6H PRN PO 08/22/16 00:00 09/05/16 00:00 08/23/16 21:47 5 MG Insulin Glargine (Lantus Solostar Pen) 20 unit HS SC 08/22/16 21:00 09/21/16 20:59 08/26/16 21:57 20 UNIT Daptomycin 500 mg/ Sodium Chloride 60 ml @ 100 mls/hr Q2D@0900 IV 08/25/16 09:00 10/06/16 08:59 08/27/16 09:16 100 MLS/HR Daptomycin (Consult) 1 ea UD PRN N/A 08/23/16 12:30 09/22/16 12:29 Senna (Senokot Tab) 17.2 mg HS PO 08/23/16 21:00 09/22/16 20:59 08/25/16 20:31 17.2 MG Docusate Sodium (coLACE CAP) 100 mg BID PO 08/23/16 21:00 09/22/16 20:59 08/27/16 09:02 100 MG Heparin Sodium (Porcine) (Heparin Sq 5000 Unit/0.5ml) 5,000 unit Q12 SQ 08/24/16 09:00 09/20/16 08:59 08/27/16 09:08 5,000 UNIT Ondansetron HCl (Zofran Inj) 4 mg Q6H PRN IV 08/23/16 22:30 09/22/16 22:29 08/24/16 06:41 4 MG Sodium Chloride 1,000 ml @ 80 mls/hr [id number] IV 08/23/16 22:30 09/22/16 22:29 08/27/16 14:26 80 MLS/HR Ioversol (Optiray 320) 125 ml UD PRN IV 08/24/16 10:00 08/28/16 09:59
[2016-08-27] MEDS: SENNA 8.6 MG TAB PO SCH (19:58)
[2016-08-27] MEDS: INSULIN GLARGINE SOLOSTAR 100 UNITS/ML 3 ML PEN SC SCH (20:02)
[2016-08-27 23:03] VITALS: BP 127/69; PULSE 99; TEMP 36.8; O2SAT 95
[2016-08-28] VITALS: O2SAT 95
[2016-08-28] MEDS: SODIUM CHLORIDE 0.9% 1000ML 1,000 ML IV SCH ×2 (05:38→15:11)
[2016-08-28] MEDS: PIPERACILL/TAZOBAC IV 3.375 GM in DEXTROSE 5% 100ML IV SCH ×3 (05:40→21:42)
[2016-08-28 07:08] LABS: HEMATOCRIT 30.4 % (42-52); MEAN CORPUSCULAR HEMOGLOBIN 28.7 pg (25-34); MEAN CORPUSCULAR HGB CONC 30.9 g/dl (32-36); MEAN PLATELET VOLUME 9.9 fL (7.4-10.4); PLATELET COUNT 212 K/uL (130-400); RED BLOOD COUNT 3.27 M/uL (4.7-6.1); WHITE BLOOD COUNT 10.55 K/uL (4.8-10.8)
[2016-08-28 07:18] VITALS: BP 148/72; PULSE 94; TEMP 36.8; O2SAT 94
[2016-08-28 07:41] LABS: BUN/CREATININE RATIO 13.9 (10-20); CALCIUM 8.4 mg/dl (8.5-10.1); CREATININE 1.7 mg/dl (0.60-1.40); POTASSIUM 4.1 mmol/L (3.5-5.1)
[2016-08-28] MEDS: INSULIN ASPART 100 UNITS/ML 3 ML PEN SC SCH ×4 (09:25→21:39)
[2016-08-28] MEDS: DOCUSATE SODIUM 100 MG CAP PO SCH ×2 (09:26→21:15)
[2016-08-28] MEDS: METOPROLOL TARTRATE 25 MG TAB PO SCH ×2 (09:26→21:15)
[2016-08-28] MEDS: MULTIVITAMIN TAB PO SCH (09:26)
[2016-08-28] MEDS: ASPIRIN 81 MG ECTAB PO SCH (09:27)
[2016-08-28] MEDS: LOSARTAN POTASSIUM 25 MG TAB PO SCH (09:27)
[2016-08-28] MEDS: POTASSIUM CHLORIDE 10 MEQ TABCR PO SCH (09:28)
[2016-08-28] MEDS: HEPARIN SOD 5000 UNIT/0.5 ML CARP SQ SCH ×2 (09:31→21:40)
[2016-08-28 15:15] VITALS: BP 116/63; PULSE 84; TEMP 37.1; O2SAT 96
--- NOTE | 2016-08-28 17:02 | Progress Note ---
Medicine Progress Note Date & Time of Visit: Aug 28, 2016 at 16:55. Subjective Pt was seen and examined Sitting in chair comfortable with family Pt said that he feels good he said that he did good with PT he said that he does not have any appetite because the food they bring to him is tasteless Pt said that he usually eats a little salt denies any chest pain, palpitation, dizziness and SOB Objective Last 8 Hrs Date Time Temp Pulse Resp B/P (MAP) Pulse Ox O2 Delivery O2 Flow Rate FiO2 08/28/16 15:20 Room Air 08/28/16 15:15 37.1 84 16 116/63 (80) 96 Room Air Physical Exam: General- No acute distress Head- atraumatic Eyes- PERRL, EOMI ENT- oropharynx clear Neck- supple, no JVD Lungs- clear to auscultation Heart- irregular rhythm; +Systolic murmur Abdomen- normal bowel sounds, soft Extremities-no calf tenderness, Left knee is wrap with ruthie bandage. 3rd toe on Left foot is black (gangrenous) in color and covered with bandage. Neuro- alert, oriented, PERRL, EOMI; no facial palsy; no dysarthria Skin- warm & dry Laboratory Results: Last 24 Hours Test 08/27/16 17:12 08/27/16 20:45 08/28/16 06:30 08/28/16 08:24 Bedside Glucose 124 mg/dl 147 mg/dl 121 mg/dl White Blood Count 10.55 K/uL Red Blood Count 3.27 M/uL Hemoglobin 9.4 g/dL Hematocrit 30.4 % Mean Corpuscular Volume 93.0 fL Mean Corpuscular Hemoglobin 28.7 pg Mean Corpuscular Hemoglobin Concent 30.9 g/dl RDW Standard Deviation 57.5 fL RDW Coefficient of Variation 16.8 % Platelet Count 212 K/uL Mean Platelet Volume 9.9 fL Sodium Level 141 mmol/L Potassium Level 4.1 mmol/L Chloride Level 108 mmol/L Carbon Dioxide Level 22 mmol/L Anion Gap 11.0 mmol/L Blood Urea Nitrogen 24 mg/dl Creatinine 1.70 mg/dl Est Creatinine Clear Calc Drug Dose 31.0 ml/min Estimated GFR () 40.8 Estimated GFR (Non- 35.2 BUN/Creatinine Ratio 13.9 Random Glucose 98 mg/dl Calcium Level 8.4 mg/dl Test 08/28/16 12:04 Bedside Glucose 134 mg/dl Assessment & Plan CELLULITIS LEFT FOOT AND LEG Presented with cellulitis of left lower extremity that started with left third toe. Left foot Xray showed no conventional radiographic evidence of acute osteomyelitis On admission C-reactive protein 7.48, Lactic acid 1.2. Afebrile and no leukocytosis Blood cultures No growth Received IV vancomycin and ceftriaxone. Abx changed to daptomycin and piperacillin/tazobactam. ID on board recommended to continue current therapy On dapto and zosyn erythema is significantly improved Clinically improved LEFT KNEE EFFUSION SEPTIC ARTHRITIS Underlying rheumatoid arthritis. S/P Day 5 Left knee arthroscopic irrigation and debridement done by Dr. Marin Orthopedics consulted and knee aspirated Synovial fluid WBC count 106,600. No crystals were seen. synovial fluid positive for gram positive cocci has been on dapto and zosyn waiting for culture sensitivity ID recommended to continue abx continue PT/OT to work on range of motion Continue pain control ROM improved ACUTE BLOOD LOSS ANEMIA Possible related to post-op Hbg 9.4 transfused 1 unit prbc 0n 08/26 Monitor CBC CORONARY ARTERY DISEASE No anginal symptoms. Continue aspirin, metoprolol. Will hold aspirin if h/h drop further Statin on hold due to therapy with daptomycin. Stable Left Third Toe Gangrene Arterial doppler showed findings suggest occlusion of the mid to distal left superficial femoral artery with reconstitution in the popliteal artery and likely occlusion of the distal posterior tibial artery. CTA B/L LE showed severe arterial occlusive/atherosclerotic change of all major arterial structures of the legs and lower legs case discussed with vascular Dr. Jefferson that waiting his renal function to improve for possible amputation of L third toe Planing for vascular intervention on TUESDAY, 08/[address] Jefferson Continue monitor ATRIAL FIBRILLATION / FLUTTER Chronic AF. On metoprolol for rate control. Anticoagulation discontinued by Cardiology due to epistaxis and unsteady gait. Continue aspirin and metoprolol. Stable HYPERTENSION Continue metoprolol and losartan with hold parameters BP stable CKD III / GLEN Baseline creatinine 1.6. Creatinine on admission1.9. Serum creatinine improved from 2.4 to 1.7 today Continue holding furosemide. Avoid potential nephrotoxins when able. 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 Hgb A1C 7.0 on 06/30/16, Controlled Lantus + NovoLog per protocol during hospital stay. DYSLIPIDEMIA Hold simvastatin due to therapy with daptomycin. RHEUMATOID ARTHRITIS Hold methotrexate pending resolution of cellulitis. VTE PROPHYLAXIS Moderate risk for VTE. SQ heparin. RESUSCITATION STATUS DNR DISPOSITION Will transfer to rehab once medically stable Family Medicine follow-up with Dr. Narvaez. Cardiology follow-up with Dr. Lusi Stewart. Rheumatology follow-up with Dr. Bahena. Nephrology follow-up with Dr. Luo. Consultants: [facility] Vascular Surgery . Procedures: cardiac monitoring IV meds venous duplex left lower extremity arterial duplex left lower extremity arthrocentesis left knee arthroscopic irrigation and debridement left knee by Dr. Marin 08/23/16 . Current Inpatient Medications: Current Inpatient Medications Medications (Trade) Dose Ordered Sig/Rosemarie Route Start Time Stop Time Status Last Admin Dose Admin Acetaminophen (Tylenol Tab) 650 mg Q4H PRN PO 08/20/16 16:00 09/19/16 15:59 08/21/16 21:39 650 MG Aspirin (Ecotrin Tab) 81 mg QAM PO 08/21/16 09:00 09/20/16 08:59 08/28/16 09:27 81 MG Folic Acid (Folvite Tab) 1 mg QAM PO 08/21/16 09:00 09/20/16 08:59 08/28/16 09:25 1 MG Losartan Potassium (coZAAR TAB) 12.5 mg DAILY PO 08/21/16 09:00 09/20/16 08:59 08/28/16 09:27 12.5 MG Metoprolol Tartrate (Lopressor Tab) 25 mg BID PO 08/20/16 21:00 09/19/16 20:59 08/28/16 09:26 25 MG Multivitamins (Multivitamin Tab) 1 tab DAILY PO 08/21/16 09:00 09/20/16 08:59 08/28/16 09:26 1 TAB Potassium Chloride (Klor-Con M10) 10 meq DAILY PO 08/21/16 09:00 09/20/16 08:59 08/28/16 09:28 10 MEQ Insulin Aspart (novoLOG ASPART) SLIDING SCALE G... ACHS SC 08/20/16 21:00 09/19/16 20:59 08/28/16 13:15 1 UNITS Glucose (Glucose 40% Gel) 15-30 GRAMS 15 GRAMS... UD PRN PO 08/20/16 21:00 09/19/16 20:59 Glucose (Glucose Chew Tab) 4-8 Tablets 4 Tabl... UD PRN PO 08/20/16 21:00 09/19/16 20:59 Dextrose (Dextrose 50% 50ML Syringe) 25-50ML OF 50% DW IV FOR... UD PRN IV 08/20/16 21:00 09/19/16 20:59 Glucagon (Glucagon Inj) 1 mg UD PRN SQ 08/20/16 21:00 09/19/16 20:59 Piperacillin Sod/ Tazobactam Sod 3.375 gm/Dextrose 115 ml @ 28.75 mls/ hr Q8H IV 08/21/16 06:00 10/02/16 05:59 08/28/16 13:44 28.75 MLS/HR Piperacillin Sod/ Tazobactam Sod (Consult) 1 ea UD PRN N/A 08/21/16 01:00 09/20/16 00:59 Hydromorphone HCl (Dilaudid Inj) 0.5 mg Q3H PRN IV 08/22/16 00:00 09/05/16 00:00 08/24/16 00:01 0.5 MG Oxycodone HCl (Roxicodone Immediate Rel Tab) 5 mg Q6H PRN PO 08/22/16 00:00 09/05/16 00:00 08/23/16 21:47 5 MG Insulin Glargine (Lantus Solostar Pen) 20 unit HS SC 08/22/16 21:00 09/21/16 20:59 08/27/16 20:02 20 UNIT Daptomycin 500 mg/ Sodium Chloride 60 ml @ 100 mls/hr Q2D@0900 IV 08/25/16 09:00 10/06/16 08:59 08/27/16 09:16 100 MLS/HR Daptomycin (Consult) 1 ea UD PRN N/A 08/23/16 12:30 09/22/16 12:29 Senna (Senokot Tab) 17.2 mg HS PO 08/23/16 21:00 09/22/16 20:59 08/27/16 19:58 17.2 MG Docusate Sodium (coLACE CAP) 100 mg BID PO 08/23/16 21:00 09/22/16 20:59 08/28/16 09:26 100 MG Heparin Sodium (Porcine) (Heparin Sq 5000 Unit/0.5ml) 5,000 unit Q12 SQ 08/24/16 09:00 09/20/16 08:59 08/28/16 09:31 5,000 UNIT Ondansetron HCl (Zofran Inj) 4 mg Q6H PRN IV 08/23/16 22:30 09/22/16 22:29 08/24/16 06:41 4 MG Sodium Chloride 1,000 ml @ 80 mls/hr [id number] IV 08/23/16 22:30 09/22/16 22:29 08/28/16 15:11 80 MLS/HR
[2016-08-28 21:16] VITALS: BP 124/61; PULSE 72
[2016-08-28] MEDS: SENNA 8.6 MG TAB PO SCH (21:17)
[2016-08-28] MEDS: INSULIN GLARGINE SOLOSTAR 100 UNITS/ML 3 ML PEN SC SCH (21:39)
[2016-08-28 23:14] VITALS: BP 117/66; PULSE 75; TEMP 36.8; O2SAT 98
[2016-08-29] VITALS (11 sets, daily range): BP systolic 135–157; BP diastolic 49–72; PULSE 70–109; TEMP 36.4–38.5; O2SAT 94–96
[2016-08-29] MEDS: SODIUM CHLORIDE 0.9% 1000ML 1,000 ML IV SCH (03:12)
[2016-08-29] MEDS ORDERED: NURSING VERBAL MED ORDER ONE ×2 (06:00→16:30)
[2016-08-29] MEDS: PIPERACILL/TAZOBAC IV 3.375 GM in DEXTROSE 5% 100ML IV SCH ×3 (06:04→21:36)
[2016-08-29] MEDS ORDERED: FUROSEMIDE INJ 40 MG in SYRINGE 0 ML IV ONE (06:15)
--- NOTE | 2016-08-29 06:16 | Progress Note ---
Progress Note Date of Service Aug 29, 2016. Progress Note GATEHOUSE ATTENDANT ATTENDING NOTE pt developed marked Orthopnea with respiratory distress sitting up on edge of bed has + 2 bilateral pitting edema + crackles at base of lung IVF D/lizbeth , ordered for 40 mg IV Lasix stat portable Cxray ordered PRP and Pro BNP ordered on AM lab ECHO in 2007 -mild /moderate Systolic dysfunction with EF 40-45% severe Aortic stenosis repeat ECHO ordered given pt still requiring IV Abx -may need scheduled dose of Lasix to prevent vol over load will update AM provider
--- NOTE | 2016-08-29 06:58 | DIAGNOSTIC IMAGING REPORT ---
CHEST ONE VIEW PORTABLE CLINICAL HISTORY: Shortness of breath. COMPARISON STUDY: 08/21/2016 FINDINGS: The heart is enlarged. There are postsurgical changes of a midline sternotomy and valvular replacement. There is elevation of the interstitium. There are small bilateral pleural effusions. Subtle right lung airspace opacities, likely represent focal edema.[ IMPRESSION: Congestive heart failure pattern with small bilateral pleural effusions. Electronically signed by: Michoacano Christopher M.D. 08/29/2016 6:57 AM Dictated Date/Time: 08/29/2016 6:56 AM
[2016-08-29 07:25] LABS: BUN/CREATININE RATIO 13.8 (10-20); CALCIUM 8.4 mg/dl (8.5-10.1); CREATININE 1.6 mg/dl (0.60-1.40); POTASSIUM 4.1 mmol/L (3.5-5.1)
[2016-08-29] MEDS ORDERED: PERFLUTREN LIPID MICROSPHERE (DEFINITY) IV ONE (07:39)
[2016-08-29] MEDS: MULTIVITAMIN TAB PO SCH (09:32)
[2016-08-29] MEDS: METOPROLOL TARTRATE 25 MG TAB PO SCH ×2 (09:33→21:03)
[2016-08-29] MEDS: POTASSIUM CHLORIDE 10 MEQ TABCR PO SCH (09:34)
[2016-08-29] MEDS: LOSARTAN POTASSIUM 25 MG TAB PO SCH (09:34)
[2016-08-29] MEDS: ASPIRIN 81 MG ECTAB PO SCH (09:35)
[2016-08-29] MEDS: DOCUSATE SODIUM 100 MG CAP PO SCH ×2 (09:35→21:02)
[2016-08-29] MEDS: INSULIN ASPART 100 UNITS/ML 3 ML PEN SC SCH ×4 (09:39→21:08)
[2016-08-29] MEDS: HEPARIN SOD 5000 UNIT/0.5 ML CARP SQ SCH ×2 (09:40→21:09)
[2016-08-29] MEDS: DAPTOmycin IV 500 MG in SODIUM CHLORIDE 0.9% 50ML 50 ML IV SCH (09:44)
[2016-08-29] MEDS: ALBUT/IPRATROP 3MG/0.5MG NEB 3 ML VIAL INH SCH ×3 (11:26→18:51)
--- NOTE | 2016-08-29 14:21 | ECHOCARDIOGRAM REPORT ---
*NOTICE TO RECEIVING DEMOCRAT AGENCY This information is strictly Confidential and protected under [place] law. [place] law prohibits you from making any further disclosure of this information unless further disclosure is expressly permitted by the written consent of the person to whom it pertains or is authorized by law. A general authorization for the release of medical or other information is not sufficient for this purpose. Hospital accepts no responsibility if the information is made available to any other person, INCLUDING THE PATIENT. Interpretation Summary * Name: MIGUEL GAFFNEY Study Date: 08/29/2016 07:17 AM BP: 136/67 mmHg * Patient Location: C.MSN\S\N383\S\2 HR: 85 * : 1930 (M/d/yyyy) Gender: Male Height: 70 in * Age: 86 yrs Ethnicity: [place] Weight: 180 lb * Ordering Physician: Noris Neil * Performed By: Monica Dutton * * Reason For Study: CHF * BSA: 2.0 m2 * The study was technically adequate. * -- Conclusions -- * The rhythm is atrial fibrillation. * Left ventricular systolic function is mildly reduced. * Ejection Fraction = 45-50%. * There is mild concentric left ventricular hypertrophy. * Severe biatrial enlargement. * There is a bioprosthetic aortic valve. 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 * There is moderate mitral regurgitation. * There is mild tricuspid regurgitation. * The estimated systolic PAP is 55mmHg. Procedure Details * A complete two-dimensional transthoracic echocardiogram was performed (2D, M-mode, Doppler and color flow Doppler). * A contrast injection of Definity was performed to improve assessment of LV function. * Contrast was injected into an intravenous site in the right arm. * One vial of Definity ultrasound contrast was diluted in normal saline to a total volume of 10 ml. A total of '2' ml of solution was administered during imaging. * Lot # [id number] of Definity utilized for procedure. * Expiration date 09/05. * The attending nurse who injected the contrast agent was ELIZABETH PHELAN RN. Left Ventricle * The left ventricle is normal in size. * The rhythm is atrial fibrillation. * There is mild concentric left ventricular hypertrophy. * Ejection Fraction = 45-50%. * Left ventricular systolic function is mildly reduced. * There is borderline global hypokinesis of the left ventricle. Right Ventricle * The right ventricle is normal size. * The right ventricular systolic function is normal as assessed by tricuspid annular plane systolic excursion (TAPSE) (normal >1.5 cm). Atria * The left atrium is severely dilated. * The right atrium is severely dilated. * There is no evidence of atrial septal defect, but resolution does not allow assessment for a patent foramen ovale. Mitral Valve * There is moderate to severe mitral annular calcification. * There is no mitral valve stenosis. * There is moderate mitral regurgitation. Tricuspid Valve * The tricuspid valve is normal. * There is no tricuspid stenosis. * There is mild tricuspid regurgitation. * The estimated systolic PAP is 55mmHg. Aortic Valve * The aortic valve is trileaflet. * Aortic stenosis is absent. * There is no significant aortic regurgitation. * There is a bioprosthetic aortic valve. 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 Pulmonic Valve * The pulmonary valve is inadequately visualized, but the Doppler data is adequate for interpretation. * There is no pulmonic valvular stenosis. * Mild pulmonic valvular regurgitation. Great Vessels * The aortic root is normal size. Pericardium/Pleural * There is no pericardial effusion. Great Vessels * Dilated inferior vena cava with reduced collapsability with sniff indicates an elevated right atrial pressure of 15 mmHg Left Ventricular Diastolic Function * Pulse wave TDI of the anterior and posterior mitral annulas demonstrates abnormal LV relaxation MMode 2D Measurements and Calculations IVSd 1.3 cm IVSs 2.6 cm LVIDd 5.2 cm LVIDs 3.4 cm LVPWd 1.0 cm LVPWs 2.0 cm IVS/LVPW 1.3 FS 35.0 % EDV(Teich) 127.0 ml ESV(Teich) 45.8 ml EF(Teich) 63.9 % EDV(cubed) 137.2 ml ESV(cubed) 37.6 ml EF(cubed) 72.6 % % IVS thick 96.0 % % LVPW thick 97.2 % LV mass(C)d 236.0 grams LV mass(C)dI 118.2 grams/m\S\2 LV mass(C)s 385.0 grams LV mass(C)sI 192.9 grams/m\S\2 SV(Teich) 81.2 ml SI(Teich) 40.7 ml/m\S\2 SV(cubed) 99.5 ml SI(cubed) 49.9 ml/m\S\2 ACS 0.83 cm LA dimension 5.2 cm asc Aorta Diam 3.7 cm LVOT diam 1.9 cm LVOT area 2.9 cm\S\2 LVAd ap4 33.9 cm\S\2 LVLd ap4 8.8 cm EDV(MOD-sp4) 113.4 ml EDV(sp4-el) 110.6 ml LVAs ap4 21.7 cm\S\2 LVLs ap4 7.3 cm ESV(MOD-sp4) 54.0 ml ESV(sp4-el) 55.4 ml EF(MOD-sp4) 52.4 % EF(sp4-el) 49.9 % LVAd ap2 35.1 cm\S\2 LVLd ap2 8.6 cm EDV(MOD-sp2) 118.7 ml EDV(sp2-el) 121.1 ml LVAs ap2 23.0 cm\S\2 LVLs ap2 7.7 cm ESV(MOD-sp2) 56.7 ml ESV(sp2-el) 58.3 ml EF(MOD-sp2) 52.2 % EF(sp2-el) 51.9 % LVLd %diff -2.66 % EDV(MOD-bp) 115.7 ml LVLs %diff 6.1 % ESV(MOD-bp) 57.4 ml EF(MOD-bp) 50.4 % SV(MOD-sp4) 59.4 ml SI(MOD-sp4) 29.8 ml/m\S\2 SV(MOD-sp2) 62.0 ml SI(MOD-sp2) 31.0 ml/m\S\2 SV(MOD-bp) 58.3 ml SI(MOD-bp) 29.2 ml/m\S\2 SV(sp4-el) 55.2 ml SI(sp4-el) 27.7 ml/m\S\2 SV(sp2-el) 62.8 ml SI(sp2-el) 31.5 ml/m\S\2 Doppler Measurements and Calculations MV E max savanna 194.3 cm/sec MV dec time 0.23 sec Ao V2 max 244.9 cm/sec Ao max PG 24.0 mmHg Ao max PG (full) 19.3 mmHg ARIN(V,A) 1.3 cm\S\2 ARIN(V,D) 1.3 cm\S\2 LV V1 max PG 4.7 mmHg LV V1 max 108.0 cm/sec MR max savanna 511.8 cm/sec MR max PG 104.8 mmHg MR mean savanna 380.7 cm/sec MR mean PG 65.8 mmHg MR VTI 149.8 cm PA V2 max 77.1 cm/sec PA max PG 2.4 mmHg PI end-d savanna 101.6 cm/sec TR max savanna 319.0 cm/sec
--- NOTE | 2016-08-29 15:44 | Progress Note ---
Medicine Progress Note Date & Time of Visit: Aug 29, 2016 at 15:33. Subjective Pt was seen and examined Sitting in bed comfortable with no distress Pt said that last night he had some SOB when lying flat he was given lasix and IVF was stopped pt said that he feels better denies any chest pain, palpitation, orthopnea, dizziness and sob Objective Last 8 Hrs Date Time Temp Pulse Resp B/P (MAP) Pulse Ox O2 Delivery O2 Flow Rate FiO2 08/29/16 15:04 36.4 70 16 135/72 (93) 94 Room Air 08/29/16 11:27 83 16 94 Room Air 08/29/16 08:17 36.8 94 16 157/70 (99) 96 Room Air 08/29/16 07:55 Room Air Physical Exam: General- No acute distress Head- atraumatic Eyes- PERRL, EOMI ENT- oropharynx clear Neck- supple, no JVD Lungs- clear to auscultation Heart- irregular rhythm; +Systolic murmur Abdomen- normal bowel sounds, soft Extremities-no calf tenderness, +edema, Left knee is wrap with ruthie bandage. 3rd toe on Left foot is black (gangrenous) in color and covered with bandage. Neuro- alert, oriented, PERRL, EOMI; no facial palsy; no dysarthria Skin- warm & dry Laboratory Results: Last 24 Hours Test 08/28/16 16:57 08/28/16 20:43 08/29/16 06:20 08/29/16 08:16 Bedside Glucose 114 mg/dl 173 mg/dl 124 mg/dl Sodium Level 142 mmol/L Potassium Level 4.1 mmol/L Chloride Level 108 mmol/L Carbon Dioxide Level 24 mmol/L Anion Gap 10.0 mmol/L Blood Urea Nitrogen 22 mg/dl Creatinine 1.60 mg/dl Est Creatinine Clear Calc Drug Dose 33.0 ml/min Estimated GFR () 43.9 Estimated GFR (Non- 37.9 BUN/Creatinine Ratio 13.8 Random Glucose 103 mg/dl Calcium Level 8.4 mg/dl Pro-B-Type Natriuretic Peptide 81204 pg/ml Test 08/29/16 11:35 Bedside Glucose 172 mg/dl Assessment & Plan CELLULITIS LEFT FOOT AND LEG Presented with cellulitis of left lower extremity that started with left third toe. Left foot Xray showed no conventional radiographic evidence of acute osteomyelitis On admission C-reactive protein 7.48, Lactic acid 1.2. Afebrile and no leukocytosis Blood cultures No growth Received IV vancomycin and ceftriaxone. Abx changed to daptomycin and piperacillin/tazobactam. ID on board recommended to continue current therapy On dapto and zosyn erythema is significantly improved Clinically improved LEFT KNEE EFFUSION SEPTIC ARTHRITIS Underlying rheumatoid arthritis. S/P Day 5 Left knee arthroscopic irrigation and debridement done by Dr. Marin Orthopedics consulted and knee aspirated Synovial fluid WBC count 106,600. No crystals were seen. synovial fluid positive for gram positive cocci has been on dapto and zosyn ID recommended to continue abx continue PT/OT to work on range of motion Continue pain control ROM improved waiting for culture sensitivity ACUTE BLOOD LOSS ANEMIA Possible related to post-op Hbg 9.4 transfused 1 unit prbc 0n 08/26 Monitor CBC CORONARY ARTERY DISEASE No anginal symptoms. Continue aspirin, metoprolol. Will hold aspirin if h/h drop further Statin on hold due to therapy with daptomycin. Stable Left Third Toe Gangrene Arterial doppler showed findings suggest occlusion of the mid to distal left superficial femoral artery with reconstitution in the popliteal artery and likely occlusion of the distal posterior tibial artery. CTA B/L LE showed severe arterial occlusive/atherosclerotic change of all major arterial structures of the legs and lower legs case discussed with vascular Dr. Jefferson that waiting his renal function to improve for possible amputation of L third toe Planing for vascular intervention on TUESDAY, 08/[address] Jefferson Continue monitor ATRIAL FIBRILLATION / FLUTTER Chronic AF. On metoprolol for rate control. Anticoagulation discontinued by Cardiology due to epistaxis and unsteady gait. Continue aspirin and metoprolol. Stable DYSPNEA Mostly related to fluid overload due to systolic dysfunction CXR showed Congestive heart failure pattern with small bilateral pleural effusions. IVF was d/c Received lasix 40mg x1 Might need prn lasix ECHO done today The rhythm is atrial fibrillation. * Left ventricular systolic function is mildly reduced. * Ejection Fraction = 45-50%. * There is mild concentric left ventricular hypertrophy. * Severe biatrial enlargement. * There is a bioprosthetic aortic valve. 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 * There is moderate mitral regurgitation. * There is mild tricuspid regurgitation. * The estimated systolic PAP is 55mmHg. HYPERTENSION Continue metoprolol and losartan with hold parameters BP stable CKD III / GLEN Baseline creatinine 1.6. Creatinine on admission1.9. Serum creatinine improved from 2.4 to 1.6 today Continue holding furosemide. Avoid potential nephrotoxins when able. 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 Hgb A1C 7.0 on 06/30/16, Controlled Lantus + NovoLog per protocol during hospital stay. DYSLIPIDEMIA Hold simvastatin due to therapy with daptomycin. RHEUMATOID ARTHRITIS Hold methotrexate pending resolution of cellulitis. VTE PROPHYLAXIS Moderate risk for VTE. SQ heparin. RESUSCITATION STATUS DNR DISPOSITION Will transfer to rehab once medically stable Family Medicine follow-up with Dr. Narvaez. Cardiology follow-up with Dr. Luis Stewart. Rheumatology follow-up with Dr. Bahena. Nephrology follow-up with Dr. Luo. Consultants: [facility] Vascular Surgery . Procedures: cardiac monitoring IV meds venous duplex left lower extremity arterial duplex left lower extremity arthrocentesis left knee arthroscopic irrigation and debridement left knee by Dr. Marin 08/23/16 . Current Inpatient Medications: Current Inpatient Medications Medications (Trade) Dose Ordered Sig/Rosemarie Route Start Time Stop Time Status Last Admin Dose Admin Acetaminophen (Tylenol Tab) 650 mg Q4H PRN PO 08/20/16 16:00 09/19/16 15:59 08/21/16 21:39 650 MG Aspirin (Ecotrin Tab) 81 mg QAM PO 08/21/16 09:00 09/20/16 08:59 08/29/16 09:35 81 MG Folic Acid (Folvite Tab) 1 mg QAM PO 08/21/16 09:00 09/20/16 08:59 08/29/16 09:32 1 MG Losartan Potassium (coZAAR TAB) 12.5 mg DAILY PO 08/21/16 09:00 09/20/16 08:59 08/29/16 09:34 12.5 MG Metoprolol Tartrate (Lopressor Tab) 25 mg BID PO 08/20/16 21:00 09/19/16 20:59 08/29/16 09:33 25 MG Multivitamins (Multivitamin Tab) 1 tab DAILY PO 08/21/16 09:00 09/20/16 08:59 08/29/16 09:32 1 TAB Potassium Chloride (Klor-Con M10) 10 meq DAILY PO 08/21/16 09:00 09/20/16 08:59 08/29/16 09:34 10 MEQ Insulin Aspart (novoLOG ASPART) SLIDING SCALE G... ACHS SC 08/20/16 21:00 09/19/16 20:59 08/29/16 13:21 10 UNITS Glucose (Glucose 40% Gel) 15-30 GRAMS 15 GRAMS... UD PRN PO 08/20/16 21:00 09/19/16 20:59 Glucose (Glucose Chew Tab) 4-8 Tablets 4 Tabl... UD PRN PO 08/20/16 21:00 09/19/16 20:59 Dextrose (Dextrose 50% 50ML Syringe) 25-50ML OF 50% DW IV FOR... UD PRN IV 08/20/16 21:00 09/19/16 20:59 Glucagon (Glucagon Inj) 1 mg UD PRN SQ 08/20/16 21:00 09/19/16 20:59 Piperacillin Sod/ Tazobactam Sod 3.375 gm/Dextrose 115 ml @ 28.75 mls/ hr Q8H IV 08/21/16 06:00 10/02/16 05:59 08/29/16 13:59 28.75 MLS/HR Piperacillin Sod/ Tazobactam Sod (Consult) 1 ea UD PRN N/A 08/21/16 01:00 09/20/16 00:59 Hydromorphone HCl (Dilaudid Inj) 0.5 mg Q3H PRN IV 08/22/16 00:00 09/05/16 00:00 08/24/16 00:01 0.5 MG Oxycodone HCl (Roxicodone Immediate Rel Tab) 5 mg Q6H PRN PO 08/22/16 00:00 09/05/16 00:00 08/23/16 21:47 5 MG Insulin Glargine (Lantus Solostar Pen) 20 unit HS SC 08/22/16 21:00 09/21/16 20:59 08/28/16 21:39 20 UNIT Daptomycin (Consult) 1 ea UD PRN N/A 08/23/16 12:30 09/22/16 12:29 Senna (Senokot Tab) 17.2 mg HS PO 08/23/16 21:00 09/22/16 20:59 08/28/16 21:17 17.2 MG Docusate Sodium (coLACE CAP) 100 mg BID PO 08/23/16 21:00 09/22/16 20:59 08/29/16 09:35 100 MG Heparin Sodium (Porcine) (Heparin Sq 5000 Unit/0.5ml) 5,000 unit Q12 SQ 08/24/16 09:00 09/20/16 08:59 08/29/16 09:40 5,000 UNIT Ondansetron HCl (Zofran Inj) 4 mg Q6H PRN IV 08/23/16 22:30 09/22/16 22:29 08/24/16 06:41 4 MG Albuterol/ Ipratropium (Duoneb) 3 ml QIDR INH 08/29/16 12:00 09/28/16 11:59 08/29/16 11:26 3 ML Daptomycin 500 mg/ Sodium Chloride 60 ml @ 100 mls/hr Q24H IV 08/30/16 09:00 10/06/16 08:59
[2016-08-29] MEDS: ACETAMINOPHEN 325 MG TAB PO PRN (18:48)
[2016-08-29] MEDS: SENNA 8.6 MG TAB PO SCH (21:03)
[2016-08-29] MEDS: POLYETHYLENE (MIRALAX) 17 GM PACK PO SCH (21:07)
[2016-08-29] MEDS: INSULIN GLARGINE SOLOSTAR 100 UNITS/ML 3 ML PEN SC SCH (21:09)
[2016-08-30] VITALS (11 sets, daily range): BP systolic 106–144; BP diastolic 52–63; PULSE 79–101; TEMP 36.8–37.7; O2SAT 94–99
[2016-08-30] MEDS: PIPERACILL/TAZOBAC IV 3.375 GM in DEXTROSE 5% 100ML IV SCH ×3 (05:35→21:29)
[2016-08-30 05:37] LABS: HEMATOCRIT 24.6 % (42-52); MEAN CELL VOLUME 90.1 fL (80-100); MEAN CORPUSCULAR HEMOGLOBIN 28.9 pg (25-34); MEAN CORPUSCULAR HGB CONC 32.1 g/dl (32-36); MEAN PLATELET VOLUME 9.4 fL (7.4-10.4); PLATELET COUNT 191 K/uL (130-400); RED BLOOD COUNT 2.73 M/uL (4.7-6.1); WHITE BLOOD COUNT 11.34 K/uL (4.8-10.8)
[2016-08-30 06:02] LABS: BUN/CREATININE RATIO 13.3 (10-20); CALCIUM 7.9 mg/dl (8.5-10.1); CREATININE 1.7 mg/dl (0.60-1.40); POTASSIUM 3.5 mmol/L (3.5-5.1)
[2016-08-30] MEDS: ALBUT/IPRATROP 3MG/0.5MG NEB 3 ML VIAL INH SCH ×4 (07:03→19:08)
[2016-08-30] MEDS: ASPIRIN 81 MG ECTAB PO SCH (08:51)
[2016-08-30] MEDS: DOCUSATE SODIUM 100 MG CAP PO SCH ×2 (08:52→21:14)
[2016-08-30] MEDS: MULTIVITAMIN TAB PO SCH (08:52)
[2016-08-30] MEDS: LOSARTAN POTASSIUM 25 MG TAB PO SCH (08:52)
[2016-08-30] MEDS: POTASSIUM CHLORIDE 10 MEQ TABCR PO SCH (08:52)
[2016-08-30] MEDS: INSULIN ASPART 100 UNITS/ML 3 ML PEN SC SCH ×4 (08:56→21:03)
[2016-08-30] MEDS: METOPROLOL TARTRATE 25 MG TAB PO SCH ×3 (08:59→21:15)
[2016-08-30] MEDS: HEPARIN SOD 5000 UNIT/0.5 ML CARP SQ SCH ×2 (08:59→21:04)
--- NOTE | 2016-08-30 09:06 | PROGRESS NOTE ---
DATE: 08/30/2016 SUBJECTIVE: Mr. Flores is sitting in his bedside chair. He reports that he is doing very well and is supposed to undergo a vascular surgery tomorrow. The knee feels well. He has been up walking around using a walker with physical therapy. He has minimal to no pain and overall the knee has much improved. He is afebrile, although yesterday he had a temperature of 38.5. Vital signs are stable. Urine output is adequate. White blood cell count today is 11, hemoglobin 8, hematocrit 25, platelet count is 191. Fungus and AFP negative. Blood cultures negative. Both preoperative cultures are negative. His intraoperative culture has grown out micro coccus. On examination, he is wearing a postop shoe on his dysvascular left foot. He has a trace left knee effusion. There is some very trace erythema around his arthroscopy portals likely secondary to the sutures. He does not have any drainage. He can straighten his knee out completely and bend to 100 degrees without significant difficulty. His neurovascular status is unchanged. IMPRESSION: Peripheral vascular disease, left third toe gangrene, septic arthritis of the left knee. PLAN: We will continue antibiotics at the discretion of Dr. Morelos and infectious diseases. The knee is doing well and appears to be improving. He is on daptomycin and piperacillin tazobactam for antibiotics. He is on heparin for DVT prophylaxis. I would continue to hold his methotrexate.
--- NOTE | 2016-08-30 09:18 | Anesthesiology Progress Note ---
Anesthesia Progress Note Date of Service Aug 30, 2016. Progress Notes Pt is scheduled for LLE femoral endarterectomy with angiogram on 08/31/16. Pt has a complex medical history which includes CAD s/p [place] 2008, CVA 2007, s/p AVR , HTN, severe PVD, pulm HTN, afib/aflutter, carotid stenosis, RA, DM with neuropathy, CKD, anemia, former smoker. The pt recently had L knee incision and drainage under general anesthesia. Pt tolerated the procedure well. The patient had a CXR on 08/29/16 showing congestive heart failure. On examination, the pt was without respiratory distress and he had decreased breath sounds on the right lung base. The pt's hgb was noted to be 7.9. I ordered a carotid ultrasound for today and a repeat CXR for tomorrow AM. The pt will be ordered a PRBC and a H/H will be rechecked. I spoke with Dr. Zuluaga about the patient. Consent for general anesthesia +/- arterial line was obtained from the patient. The pt will be re-evaluated in the AM. Assuming there are no major medical changes, the pt is an acceptable candidate for general anesthesia tomorrow.
[2016-08-30] MEDS ORDERED: CEFAZOLIN 1000MG/55 ML D5W 55 ML IV SCH (09:30)
--- NOTE | 2016-08-30 10:12 | Infectious Disease Progress Nt ---
Progress Note Date of Service Aug 30, 2016. Subjective Pt evaluation today including: conversation w/ patient, physical exam, chart review, lab review, review of studies, conversation w/ application development consultant, review of inpatient medication list Knee pain better. Culture has grown Micrococcus. Tolerating Abx. Remains afebrile. For vascular intervention tomorrow. All Other Systems: Reviewed and Negative Medications Current Inpatient Medications Medications (Trade) Dose Ordered Sig/Rosemarie Route Start Time Stop Time Status Last Admin Dose Admin Acetaminophen (Tylenol Tab) 650 mg Q4H PRN PO 08/20/16 16:00 09/19/16 15:59 08/29/16 18:48 650 MG Aspirin (Ecotrin Tab) 81 mg QAM PO 08/21/16 09:00 09/20/16 08:59 08/30/16 08:51 81 MG Folic Acid (Folvite Tab) 1 mg QAM PO 08/21/16 09:00 09/20/16 08:59 08/30/16 08:52 1 MG Losartan Potassium (coZAAR TAB) 12.5 mg DAILY PO 08/21/16 09:00 09/20/16 08:59 08/30/16 08:52 12.5 MG Metoprolol Tartrate (Lopressor Tab) 25 mg BID PO 08/20/16 21:00 09/19/16 20:59 08/29/16 21:03 25 MG Multivitamins (Multivitamin Tab) 1 tab DAILY PO 08/21/16 09:00 09/20/16 08:59 08/30/16 08:52 1 TAB Potassium Chloride (Klor-Con M10) 10 meq DAILY PO 08/21/16 09:00 09/20/16 08:59 08/30/16 08:52 10 MEQ Insulin Aspart (novoLOG ASPART) SLIDING SCALE G... ACHS SC 08/20/16 21:00 09/19/16 20:59 08/30/16 08:56 10 UNITS Glucose (Glucose 40% Gel) 15-30 GRAMS 15 GRAMS... UD PRN PO 08/20/16 21:00 09/19/16 20:59 Glucose (Glucose Chew Tab) 4-8 Tablets 4 Tabl... UD PRN PO 08/20/16 21:00 09/19/16 20:59 Dextrose (Dextrose 50% 50ML Syringe) 25-50ML OF 50% DW IV FOR... UD PRN IV 08/20/16 21:00 09/19/16 20:59 Glucagon (Glucagon Inj) 1 mg UD PRN SQ 08/20/16 21:00 09/19/16 20:59 Piperacillin Sod/ Tazobactam Sod 3.375 gm/Dextrose 115 ml @ 28.75 mls/ hr Q8H IV 08/21/16 06:00 10/02/16 05:59 08/30/16 05:35 28.75 MLS/HR Piperacillin Sod/ Tazobactam Sod (Consult) 1 ea UD PRN N/A 08/21/16 01:00 09/20/16 00:59 Hydromorphone HCl (Dilaudid Inj) 0.5 mg Q3H PRN IV 08/22/16 00:00 09/05/16 00:00 08/24/16 00:01 0.5 MG Oxycodone HCl (Roxicodone Immediate Rel Tab) 5 mg Q6H PRN PO 08/22/16 00:00 09/05/16 00:00 08/23/16 21:47 5 MG Insulin Glargine (Lantus Solostar Pen) 20 unit HS SC 08/22/16 21:00 09/21/16 20:59 08/29/16 21:09 20 UNIT Daptomycin (Consult) 1 ea UD PRN N/A 08/23/16 12:30 09/22/16 12:29 Senna (Senokot Tab) 17.2 mg HS PO 08/23/16 21:00 09/22/16 20:59 08/29/16 21:03 17.2 MG Docusate Sodium (coLACE CAP) 100 mg BID PO 08/23/16 21:00 09/22/16 20:59 08/30/16 08:52 100 MG Heparin Sodium (Porcine) (Heparin Sq 5000 Unit/0.5ml) 5,000 unit Q12 SQ 08/24/16 09:00 09/20/16 08:59 08/30/16 08:59 5,000 UNIT Ondansetron HCl (Zofran Inj) 4 mg Q6H PRN IV 08/23/16 22:30 09/22/16 22:29 08/24/16 06:41 4 MG Albuterol/ Ipratropium (Duoneb) 3 ml QIDR INH 08/29/16 12:00 09/28/16 11:59 08/30/16 07:03 3 ML Daptomycin 500 mg/ Sodium Chloride 60 ml @ 100 mls/hr Q24H IV 08/30/16 09:00 10/06/16 08:59 Polyethylene (Miralax Powder Packet) 17 gm HS PO 08/29/16 21:00 09/28/16 20:59 08/29/16 21:07 17 GM Sodium Chloride 1,000 ml @ 82 mls/hr [id number] IV 08/31/16 07:00 09/30/16 06:59 Sodium Bicarbonate 100 meq/Sterile Water 1,100 ml @ 80 mls/hr [id number] IV 08/31/16 07:00 09/30/16 06:59 Acetylcysteine (Acetylcysteine Cap) 600 mg BID@0600,1800 PO 08/30/16 18:00 09/01/16 06:01 Cefazolin Sodium 60 ml @ 120 mls/hr PREOP IV 08/31/16 06:00 08/31/16 16:00 Objective Vital Signs Date Time Temp Pulse Resp B/P (MAP) Pulse Ox O2 Delivery O2 Flow Rate FiO2 08/30/16 09:05 94 126/52 (76) 08/30/16 07:55 Room Air 08/30/16 07:53 36.8 90 21 121/53 (75) 95 Room Air 08/30/16 07:03 79 18 94 Room Air 08/29/16 23:30 Room Air 08/29/16 23:05 37.2 94 16 137/49 (78) 96 Room Air 08/29/16 21:09 37.2 08/29/16 21:05 37.8 08/29/16 19:57 37.3 109 20 137/49 (78) 95 Room Air 08/29/16 18:52 88 18 95 Room Air 08/29/16 18:48 38.5 94 20 141/62 (88) 95 Room Air 08/29/16 15:41 Room Air 08/29/16 15:34 89 16 95 Room Air 08/29/16 15:04 36.4 70 16 135/72 (93) 94 Room Air 08/29/16 11:27 83 16 94 Room Air Physical Exam General Appearance: WD/WN, no apparent distress Eyes: normal inspection, sclerae normal ENT: normal ENT inspection, pharynx normal Neck: supple, no adenopathy, thyroid normal, trachea midline Respiratory/Chest: chest non-tender, lungs clear, normal breath sounds, no respiratory distress Cardiovascular: regular rate, rhythm, no gallop, no murmur Abdomen: normal bowel sounds, non tender, soft, no organomegaly Extremities: non-tender, no calf tenderness, + slow capillary refill Neurologic/Psychiatric: alert, oriented x 3 Skin: normal color, no rash Lymphatic: no adenopathy Laboratory Results RUN DATE: 08/30/16 [facility] LAB PAGE 1 RUN TIME: 851 Specimen Inquiry PATIENT: MIGUEL GAFFNEY LOC: [facility] U # : [id number] AGE/SX: 86/M ROOM: N383 REG : 08/20/[address]: Jennifer Zuluaga, DO : 1930 BED: 2 DIS : STATUS: ADM IN TLOC: SPEC #: [id number] MARY: 08/23/16 STATUS: COMP REQ #: [id number] RECD: 08/23/16-[address]: Seng Zarate M.D. SOURCE: JOINT FLSP ENTR: 08/23/16 [facility] DR: Irvin Garcia MD [facility]: KNEE LEFT Arnol Morelos MD Oncu, Sydney Gaona, Seng Ramos III, M.D. Sumner, Sabrina M. , Baldo Leslie M.D. ORDERED: AER/PALMA CULTSMR Procedure Result Verified Site GRAM STAIN Final 08/24/16-747 RESULT MANY WBCs SEEN NO ORGANISMS SEEN OR AER/PALMA CULT Final 08/30/16-851 Organism 1 MICROCOCCUS SPECIES QUANITY RARE SENS NO SENSITIVITY TO FOLLOW ANAS NO ANAEROBES ISOLATED. Last 24 Hours Test 08/29/16 11:35 08/29/16 16:52 08/30/16 05:22 08/30/16 08:07 Bedside Glucose 172 mg/dl 296 mg/dl 178 mg/dl White Blood Count 11.34 K/uL Red Blood Count 2.73 M/uL Hemoglobin 7.9 g/dL Hematocrit 24.6 % Mean Corpuscular Volume 90.1 fL Mean Corpuscular Hemoglobin 28.9 pg Mean Corpuscular Hemoglobin Concent 32.1 g/dl RDW Standard Deviation 55.9 fL RDW Coefficient of Variation 16.9 % Platelet Count 191 K/uL Mean Platelet Volume 9.4 fL Sodium Level 139 mmol/L Potassium Level 3.5 mmol/L Chloride Level 106 mmol/L Carbon Dioxide Level 25 mmol/L Anion Gap 8.0 mmol/L Blood Urea Nitrogen 23 mg/dl Creatinine 1.70 mg/dl Est Creatinine Clear Calc Drug Dose 31.0 ml/min Estimated GFR () 40.8 Estimated GFR (Non- 35.2 BUN/Creatinine Ratio 13.3 Random Glucose 155 mg/dl Calcium Level 7.9 mg/dl [~ rep ct add3]] CHEST ONE VIEW PORTABLE CLINICAL HISTORY: Shortness of breath. COMPARISON STUDY: 08/21/2016 FINDINGS: The heart is enlarged. There are postsurgical changes of a midline sternotomy and valvular replacement. There is elevation of the interstitium. There are small bilateral pleural effusions. Subtle right lung airspace opacities, likely represent focal edema.[ IMPRESSION: Congestive heart failure pattern with small bilateral pleural effusions. Electronically signed by: [place]oacano Christopher M.D. 08/29/2016 6:57 AM Dictated Date/Time: 08/29/2016 6:56 AM The status of this report is Signed. Draft = Not yet reviewed or approved by Radiologist. Signed = Reviewed and approved by Radiologist. <AttendingPhy>Christofer Shaikh M.D.</AttendingPhy> <FamilyPhy>Seng Narvaez III, M.D.</FamilyPhy> <PrimaryPhy>Seng Narvaez III, M.D.</PrimaryPhy> < UnitNumber>[id number]</UnitNumber> <VisitNumber>[id number]</VisitNumber> < PatientName>MIGUEL GAFFNEY</PatientName> <DateOfBirth>1930</DateOfBirth > <Location>[facility]</Location> <ServiceDate>08/20/16</ServiceDate> <MNE>EKTAI</ MNE> <OrderingPhy>Noris Neil MD</OrderingPhy> <OrderingPhyMNE>f rep ord dr varela</OrderingPhyMNE> <DictatingPhyMNE>f rep dict dr varela</DictatingPhyMNE> < CCListMNE>f rep ct mne</CCListMNE> <AdmittingPhyMNE>f pt admit dr varela</ AdmittingPhyMNE> <AttendingPhyMNE>f pt attend dr varela</AttendingPhyMNE> Assessment and Plan (1) Peripheral vascular disease Status: 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 Patient to continue on present Rx until final culture results available and vascular intervention performed. Will follow.
[2016-08-30] MEDS: DAPTOmycin IV 500 MG in SODIUM CHLORIDE 0.9% 50ML 50 ML IV SCH (10:21)
--- NOTE | 2016-08-30 14:56 | DIAGNOSTIC IMAGING REPORT ---
BILATERAL CAROTID DOPPLER STUDY HISTORY: Mental status change carotid artery stenosis COMPARISON: None. TECHNIQUE: Real-time, grayscale, and color Doppler sonography of the carotid arteries was performed. Imaging reviewed in the transverse and longitudinal planes. All measurements were calculated based on NASCET criteria. FINDINGS: Antegrade flow is seen in the bilateral vertebral arteries. The brachial pressures are hemodynamically similar. Considerable plaque formation bilaterally. Moderate stenosis of the external carotid arteries bilaterally. The peak systolic velocity within the right ICA is 231. The right systolic ratio is 2.7. The peak systolic velocity within the left ICA is 134. The left systolic ratio is 1.4. IMPRESSION: 1. 50-70% stenosis right internal carotid artery. 2. 30-40% stenosis left internal carotid artery. 3. Moderate stenosis of the external carotid arteries bilaterally. Electronically signed by: Morteza King M.D. 08/30/2016 2:55 PM Dictated Date/Time: 08/30/2016 2:53 PM
[2016-08-30] MEDS: ACETAMINOPHEN 325 MG TAB PO PRN (15:27)
--- NOTE | 2016-08-30 15:45 | Progress Note ---
Medicine Progress Note Date & Time of Visit: Aug 30, 2016 at 15:18. Subjective 86 yo M with severe PAD p/w septic arthritis and gangrene of L toe. -pt denies pain at this time -he has been ambulating with a walker -he is tolerating PO -plan for vascular surgery tomorrow -H/H dropped this morning but pt denies any blood in stool or active bleeding. -denies fevers, chills, chest pain, or shortness of breath. Objective Last 8 Hrs Date Time Temp Pulse Resp B/P (MAP) Pulse Ox O2 Delivery O2 Flow Rate FiO2 08/30/16 14:56 37.7 97 20 136/63 (87) 96 Room Air 08/30/16 14:15 94 14 99 Room Air 08/30/16 11:10 82 14 99 Room Air 08/30/16 10:28 99 144/57 (86) 08/30/16 09:05 94 126/52 (76) 08/30/16 07:55 Room Air 08/30/16 07:53 36.8 90 21 121/53 (75) 95 Room Air Physical Exam: GEN: WNWD, in no acute distress, alert and appropriate HEENT: NC/AT, normal sclerae, MMM CARDIO: irreg rhythm, reg rate, S1/2 heard without m/g/r LUNGS: CTA bilaterally, no crackles, rales or wheezes, good diaphragmatic excursion ABD: soft, non-tender, non-distended, no rebound or guarding, +BS EXTREMITY: warm and well perfused, some sensation deficits all over feet bilaterally, L toe infection present without drainage, and some surrounding superficial erythema spreading just proximally to the 3rs left toe that is infected. Dry dressing is in place and is c/d/i. Some trace edema is noted in his legs bilaterally NEURO: CN 2-12 grossly intact, some sensation loss in feet bilaterally, no gross focal deficits. MUSC: moves all extremities equally. Normal extension in L knee, no erythema or joint effusion is noted. SKIN: warm and dry Laboratory Results: 08/30/16 05:22 08/30/16 05:22 Test 08/20/16 14:40 08/20/16 16:21 08/20/16 21:30 08/23/16 11:10 Immature Granulocyte % (Auto) 0.1 % White Blood Count 10.04 K/uL (4.8-10.8) Red Blood Count 3.41 M/uL (4.7-6.1) Hemoglobin 10.1 g/dL (14.0-18.0) Hematocrit 31.7 % (42-52) Mean Corpuscular Volume 93.0 fL (80-100) Mean Corpuscular Hemoglobin 29.6 pg (25-34) Mean Corpuscular Hemoglobin Concent 31.9 g/dl (32-36) Platelet Count 125 K/uL (130-400) Mean Platelet Volume 10.3 fL (7.4-10.4) Neutrophils (%) (Auto) 84.9 % Lymphocytes (%) (Auto) 6.7 % Monocytes (%) (Auto) 7.8 % Eosinophils (%) (Auto) 0.4 % Basophils (%) (Auto) 0.1 % Neutrophils # (Auto) 8.53 K/uL (1.4-6.5) Lymphocytes # (Auto) 0.67 K/uL (1.2-3.4) Monocytes # (Auto) 0.78 K/uL (0.11-0.59) Eosinophils # (Auto) 0.04 K/uL (0-0.5) Basophils # (Auto) 0.01 K/uL (0-0.2) Immature Granulocyte # (Auto) 0.01 K/uL (0.00-0.02) Erythrocyte Sedimentation Rate 50 mm/hr (0-14) Prothrombin Time 12.4 SECONDS (9.0-12.0) Prothromb Time International Ratio 1.2 (0.9-1.1) Activated Partial Thromboplast Time 27.5 SECONDS (21.0-31.0) Partial Thromboplastin Ratio 1.1 Total Bilirubin 1.2 mg/dl (0.2-1) Aspartate Amino Transf (AST/SGOT) 21 U/L (15-37) Alanine Aminotransferase (ALT/SGPT) 22 U/L (12-78) Alkaline Phosphatase 67 U/L (45-117) C-Reactive Protein 7.48 mg/dl (0-0.29) Total Protein 8.7 gm/dl (6.4-8.2) Albumin 2.8 gm/dl (3.4-5.0) Globulin 5.9 gm/dl (2.5-4.0) Albumin/Globulin Ratio 0.5 (0.9-2) Chemistry Specimen Hemolysis Lactic Acid Level 1.2 mmol/L (0.4-2.0) Urine Color YELLOW Urine Appearance CLEAR (CLEAR) Urine pH 5.0 (4.5-7.5) Urine Specific Henderson 1.016 (1.000-1.030) Urine Protein 1+ (NEG) Urine Glucose (UA) NEG (NEG) Urine Ketones NEG (NEG) Urine Occult Blood NEG (NEG) Urine Nitrite NEG (NEG) Urine Bilirubin NEG (NEG) Urine Urobilinogen NEG (NEG) Urine Leukocyte Esterase NEG (NEG) Urine WBC (Auto) 1-5 /hpf (0-5) Urine RBC (Auto) 0-4 /hpf (0-4) Urine Hyaline Casts (Auto) 1-5 /lpf (0-5) Urine Epithelial Cells (Auto) >30 /lpf (0-5) Urine Bacteria (Auto) NEG (NEG) Urine Renal Epithelial Cells 0-5 /lpf (0-5) Synovial Fluid Source KNEE Synovial Fluid Color DEBRA Synovial Fluid Appearance CLOUDY Synovial Fluid WBC 64533 /uL (0-200) Synovial Fluid RBC 93407 /uL Synovial Fluid Polynuclear WBCs % 95.4 % Synovial Fluid Mononuclear WBCs % 4.6 % Synovial Fluid Crystals Test 08/24/16 07:05 08/29/16 06:20 08/30/16 05:22 08/30/16 11:56 Total Creatine Kinase 56 U/L (39-308) Pro-B-Type Natriuretic Peptide 19460 pg/ml (0-1800) Red Blood Count 2.73 M/uL (4.7-6.1) Mean Corpuscular Volume 90.1 fL (80-100) Mean Corpuscular Hemoglobin 28.9 pg (25-34) Mean Corpuscular Hemoglobin Concent 32.1 g/dl (32-36) RDW Standard Deviation 55.9 fL (36.4-46.3) RDW Coefficient of Variation 16.9 % (11.5-14.5) Mean Platelet Volume 9.4 fL (7.4-10.4) Anion Gap 8.0 mmol/L (3-11) Est Creatinine Clear Calc Drug Dose 31.0 ml/min Estimated GFR () 40.8 Estimated GFR (Non- 35.2 BUN/Creatinine Ratio 13.3 (10-20) Calcium Level 7.9 mg/dl (8.5-10.1) Bedside Glucose 198 mg/dl (70-99) Date/Time Source Procedure Growth Status 08/20/16 16:21 Blood Blood Culture - Final NO GROWTH Complete 08/23/16 19:10 Joint Fluid/Space (Synovial) Knee Left Gram Stain - Final Complete 08/23/16 19:10 Bacterial Culture - Final Micrococcus Species Complete Last 24 Hours Test 08/29/16 16:52 08/29/16 20:32 08/30/16 05:22 08/30/16 08:07 Bedside Glucose 296 mg/dl 236 mg/dl 178 mg/dl White Blood Count 11.34 K/uL Red Blood Count 2.73 M/uL Hemoglobin 7.9 g/dL Hematocrit 24.6 % Mean Corpuscular Volume 90.1 fL Mean Corpuscular Hemoglobin 28.9 pg Mean Corpuscular Hemoglobin Concent 32.1 g/dl RDW Standard Deviation 55.9 fL RDW Coefficient of Variation 16.9 % Platelet Count 191 K/uL Mean Platelet Volume 9.4 fL Sodium Level 139 mmol/L Potassium Level 3.5 mmol/L Chloride Level 106 mmol/L Carbon Dioxide Level 25 mmol/L Anion Gap 8.0 mmol/L Blood Urea Nitrogen 23 mg/dl Creatinine 1.70 mg/dl Est Creatinine Clear Calc Drug Dose 31.0 ml/min Estimated GFR () 40.8 Estimated GFR (Non- 35.2 BUN/Creatinine Ratio 13.3 Random Glucose 155 mg/dl Calcium Level 7.9 mg/dl Test 08/30/16 11:56 Bedside Glucose 198 mg/dl Assessment & Plan 86 yo M with severe PAD p/w septic arthritis and gangrene of L toe. 1. L foot gangrene- no osteo on xray, BCx no growth to date, IV Vanc and ceftriaxone initially started, then changed to Dapto and Zosyn. ID following and recommends to cont this therapy for now. A small amount of erythema persists on dorsal side of foot. Of note, patient is a diabetic with significant diabetic neuropathy. 2. L knee septic arthritis-in setting of RA, s/p L knee arthroscopic irrigation and debridement done by Dr. Marin. Ortho consulted and knee aspirated. Synovial fluid positive for Micrococcus species. Noted good ROM on exam; cont PT/OT. Cont pain control efforts; well-managed at this time. 3. Acute blood loss anemia s/p operation. Hb decreased to ...... and one unit pRBCs was transfused on 08/26. He was noted to have an acute drop in H/H today to 7.9/24.6 from 9.4/30.4. In light of upcoming vascular procedure tomorrow, will recheck H/H again this evening. If Hb < 8, will consider transfusing at least one unit. Pt is aware of the possibility and I again reviewed the risks/ benefits. He verbalized understanding. Discussed this with Dr. Hernández from anesthesia who is in agreement with this plan. 4. CAD-no anginal symptoms, cont medical management with ASA and Lopressor. Statin on hold in setting of Daptomycin use. 5. Severe PAD-arterial dopler revealed occlusion of the mid to distal left superficial femoral AA with reconstitution in the popliteal artery and likely occlusion of the distal posterior tibial artery. CTA B/L LE showed severe arterial occlusive/atherosclerotic change of all major arterial structures of the legs and lower legs. Per Vascular renal function to improve for possible amputation of L third toe. Planing for vascular intervention on TUESDAY, 08/[address] Jefferson. NPO p MN 6. Chronic atrial fibrillation-cont metoprolol for rate control. Anticoagulation discontinued by Cardiology due to epistaxis and unsteady gait. Continue aspirin and metoprolol. 7. Dyspnea-resolved, no oxygen requirement at this time. 8. s/p bioprosthetic aortic valve. 9. HTN-controlled, continue metoprolol and losartan with hold parameters 10. CKD III- Baseline creatinine 1.6. Creatinine on admission 1.9. Currently is 1.7 and at baseline. On Lasix daily as outpatient at 40mg. He received a dose of 40mg IV yesterday. Will restart Lasix 20mg PO daily for now in light of recent mild GLEN. 11. 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 Hgb A1C 7.0 on , Controlled. Lantus + NovoLog per protocol during hospital stay. Consulting inpatient glycemic pharmacist for assistance. 12. HLP- Hold simvastatin due to therapy with daptomycin. 13. RA: Hold methotrexate pending resolution of cellulitis. DVT prophy: Heparin SQ q8h RESUSCITATION STATUS DNR DISPOSITION Will transfer to rehab once medically stable Family Medicine follow-up with Dr. Narvaez. Cardiology follow-up with Dr. Luis Stewart. Rheumatology follow-up with Dr. Bahena. Nephrology follow-up with Dr. Lou. Jennifer Zuluaga DO [facility] Hospitalist Consultants: ID Orthopedic Surgery Vascular Surgery . Procedures: cardiac monitoring IV meds venous duplex left lower extremity arterial duplex left lower extremity arthrocentesis left knee arthroscopic irrigation and debridement left knee by Dr. Marin 08/23/16 . Current Inpatient Medications: Current Inpatient Medications Medications (Trade) Dose Ordered Sig/Rosemarie Route Start Time Stop Time Status Last Admin Dose Admin Acetaminophen (Tylenol Tab) 650 mg Q4H PRN PO 08/20/16 16:00 09/19/16 15:59 08/29/16 18:48 650 MG Aspirin (Ecotrin Tab) 81 mg QAM PO 08/21/16 09:00 09/20/16 08:59 08/30/16 08:51 81 MG Folic Acid (Folvite Tab) 1 mg QAM PO 08/21/16 09:00 09/20/16 08:59 08/30/16 08:52 1 MG Losartan Potassium (coZAAR TAB) 12.5 mg DAILY PO 08/21/16 09:00 09/20/16 08:59 08/30/16 08:52 12.5 MG Metoprolol Tartrate (Lopressor Tab) 25 mg BID PO 08/20/16 21:00 09/19/16 20:59 08/30/16 10:46 25 MG Multivitamins (Multivitamin Tab) 1 tab DAILY PO 08/21/16 09:00 09/20/16 08:59 08/30/16 08:52 1 TAB Potassium Chloride (Klor-Con M10) 10 meq DAILY PO 08/21/16 09:00 09/20/16 08:59 08/30/16 08:52 10 MEQ Insulin Aspart (novoLOG ASPART) SLIDING SCALE G... ACHS SC 08/20/16 21:00 09/19/16 20:59 08/30/16 13:02 9 UNITS Glucose (Glucose 40% Gel) 15-30 GRAMS 15 GRAMS... UD PRN PO 08/20/16 21:00 09/19/16 20:59 Glucose (Glucose Chew Tab) 4-8 Tablets 4 Tabl... UD PRN PO 08/20/16 21:00 09/19/16 20:59 Dextrose (Dextrose 50% 50ML Syringe) 25-50ML OF 50% DW IV FOR... UD PRN IV 08/20/16 21:00 09/19/16 20:59 Glucagon (Glucagon Inj) 1 mg UD PRN SQ 08/20/16 21:00 09/19/16 20:59 Piperacillin Sod/ Tazobactam Sod 3.375 gm/Dextrose 115 ml @ 28.75 mls/ hr Q8H IV 08/21/16 06:00 10/02/16 05:59 08/30/16 14:08 28.75 MLS/HR Piperacillin Sod/ Tazobactam Sod (Consult) 1 ea UD PRN N/A 08/21/16 01:00 09/20/16 00:59 Hydromorphone HCl (Dilaudid Inj) 0.5 mg Q3H PRN IV 08/22/16 00:00 09/05/16 00:00 08/24/16 00:01 0.5 MG Oxycodone HCl (Roxicodone Immediate Rel Tab) 5 mg Q6H PRN PO 08/22/16 00:00 09/05/16 00:00 08/23/16 21:47 5 MG Insulin Glargine (Lantus Solostar Pen) 20 unit HS SC 08/22/16 21:00 09/21/16 20:59 08/29/16 21:09 20 UNIT Daptomycin (Consult) 1 ea UD PRN N/A 08/23/16 12:30 09/22/16 12:29 Senna (Senokot Tab) 17.2 mg HS PO 08/23/16 21:00 09/22/16 20:59 08/29/16 21:03 17.2 MG Docusate Sodium (coLACE CAP) 100 mg BID PO 08/23/16 21:00 09/22/16 20:59 08/30/16 08:52 100 MG Heparin Sodium (Porcine) (Heparin Sq 5000 Unit/0.5ml) 5,000 unit Q12 SQ 08/24/16 09:00 09/20/16 08:59 08/30/16 08:59 5,000 UNIT Ondansetron HCl (Zofran Inj) 4 mg Q6H PRN IV 08/23/16 22:30 09/22/16 22:29 08/24/16 06:41 4 MG Albuterol/ Ipratropium (Duoneb) 3 ml QIDR INH 08/29/16 12:00 09/28/16 11:59 08/30/16 14:15 3 ML Daptomycin 500 mg/ Sodium Chloride 60 ml @ 100 mls/hr Q24H IV 08/30/16 09:00 10/06/16 08:59 08/30/16 10:21 100 MLS/HR Polyethylene (Miralax Powder Packet) 17 gm HS PO 08/29/16 21:00 09/28/16 20:59 08/29/16 21:07 17 GM Sodium Chloride 1,000 ml @ 82 mls/hr [id number] IV 08/31/16 07:00 09/30/16 06:59 Sodium Bicarbonate 100 meq/Sterile Water 1,100 ml @ 80 mls/hr [id number] IV 08/31/16 07:00 09/30/16 06:59 Acetylcysteine (Acetylcysteine Cap) 600 mg BID@0600,1800 PO 08/30/16 18:00 09/01/16 06:01 Cefazolin Sodium 60 ml @ 120 mls/hr PREOP IV 08/31/16 06:00 08/31/16 16:00
[2016-08-30] MEDS ORDERED: PHARMACY GLYCEMIC MGMT CONSULT SCH (16:13)
[2016-08-30] MEDS: FUROSEMIDE 20 MG TAB PO SCH (16:14)
[2016-08-30 16:40] LABS: HEMATOCRIT 25.8 % (42-52)
[2016-08-30] MEDS: ACETYLCYSTEINE 600 MG CAP PO SCH (18:36)
--- NOTE | 2016-08-30 19:43 | Pharmacy Progress Note ---
Glycemic Control Intl Consult Date of Service Aug 30, 2016. Scope Glycemic Pharmacist consulted by Dr Zuluaga on 08/30/16 for glycemic control and to write orders per [facility] inpatient glycemic control protocol Objective Weight (Kilograms): 81.900 Accuchecks BSG (last 24hrs): Test 08/29/16 20:32 08/30/16 05:22 08/30/16 08:07 08/30/16 11:56 Bedside Glucose 236 mg/dl (70-99) 178 mg/dl (70-99) 198 mg/dl (70-99) Random Glucose 155 mg/dl (70-99) Test 08/30/16 16:55 Bedside Glucose 182 mg/dl (70-99) Laboratory Data (last 24hrs) Test 08/30/16 05:22 Anion Gap 8.0 mmol/L BUN/Creatinine Ratio 13.3 Blood Urea Nitrogen 23 mg/dl Creatinine 1.70 mg/dl Potassium Level 3.5 mmol/L Sodium Level 139 mmol/L White Blood Count 11.34 K/uL HbA1c 06/30/16 Hgb A1c 7% Recent Pertinent Medications Outpatient Anti-diabetic Regimen: * Lantus 15 units qpm, Regular insulin 15 units w/breakfast, 12 units w/lunch, 20 units w/supper * A1c = 7 % 06/30/16 (had transfusion a few days ago, so new Hgb A1c may not be accurate indicator of recent glycemic control) The patient is currently receiving: * Basal insulin: Lantus 20 units every hs * Correctional Insulin: Novolog Correction per scale ACHS Goal Range: Low 100 mg/dL - High 140 mg/dL Correction Factor: 20 mg/dL/unit * Prandial insulin: Per carb ratio of 1 unit per 10 grams CHO consumed * Oral Agents: none Risk Factors for Insulin Resistance: * Steroids: no * Infection: cellulitis L foot and leg, probable septic arthritis L knee- on Zosyn, daptomycin * Pressors: no * IVF: Zosyn mixed in D5W * Recent Surgery: no, scheduled for vascular procedure 08/31 * Diet: type 2 diabetic, will be npo after midnight for OR tomorrow * Mechanical Ventilation: no Assessment & Plan ASSESSMENT: * ADA & AACE recommend a goal blood sugar range 140-180 mg/dl for the majority of critically ill & non-critically ill patients. However, more stringent targets may be selected in individual cases. * 86 yo type 2 diabetic well controlled recently on Lantus and Regular insulin (according to [facility] records.) BSG's have been trending up through the day, so will tighten correction factor and carb ratio a bit, and reassess need for increased Lantus in am. PLAN FOR INPATIENT GLYCEMIC CONTROL: * Continuing Lantus 20 units SQ hs * Changing correction factor to 18 mg/dl/unit * Changing carb ratio to 1 unit per 8 grams CHO consumed * Continuing goal range Low 100 mg/dL - High 140 mg/dL * Please note that the plan above was derived based on current level of insulin resistance and hospital stress. These recommendations are appropriate for inpatient admission only. Plan of care upon discharge will need to be reassessed to avoid potential outpatient hypo/hyperglycemia. Thank you.
[2016-08-30] MEDS: INSULIN GLARGINE SOLOSTAR 100 UNITS/ML 3 ML PEN SC SCH (21:01)
[2016-08-30] MEDS: SENNA 8.6 MG TAB PO SCH (21:15)
[2016-08-30] MEDS: POLYETHYLENE (MIRALAX) 17 GM PACK PO SCH (21:15)
[2016-08-30] MEDS ORDERED: NURSING VERBAL MED ORDER ONE (23:30)
[2016-08-31] VITALS (11 sets, daily range): BP systolic 103–127; BP diastolic 54–76; PULSE 70–103; TEMP 37.2–37.5; O2SAT 93–99
[2016-08-31] MEDS: INSULIN ASPART 100 UNITS/ML 3 ML PEN SC SCH ×5 (00:11→20:45)
[2016-08-31] MEDS: PIPERACILL/TAZOBAC IV 3.375 GM in DEXTROSE 5% 100ML IV SCH ×3 (05:32→21:54)
[2016-08-31] MEDS: ACETYLCYSTEINE 600 MG CAP PO SCH ×2 (05:32→18:21)
[2016-08-31] MEDS ORDERED: CEFAZOLIN 1000MG/55 ML D5W 55 ML IV SCH (06:00)
[2016-08-31] MEDS ORDERED: CEFAZOLIN 2000 MG/60 ML D5W 60 ML IV SCH (06:00)
[2016-08-31 06:29] LABS: BASO % 0.3 %; BASO ABS # 0.03 K/uL (0-0.2); EOS % 4.1 %; HEMATOCRIT 26.3 % (42-52); IG% 0.3 %; LYMPH % 6.2 %; LYMPH ABS # 0.64 K/uL (1.2-3.4); MEAN CELL VOLUME 92.6 fL (80-100); MEAN CORPUSCULAR HEMOGLOBIN 30.3 pg (25-34); MEAN CORPUSCULAR HGB CONC 32.7 g/dl (32-36); MEAN PLATELET VOLUME 9.9 fL (7.4-10.4); MONO % 10.6 %; NEUT % 78.5 %; PLATELET COUNT 218 K/uL (130-400); RED BLOOD COUNT 2.84 M/uL (4.7-6.1); WHITE BLOOD COUNT 10.34 K/uL (4.8-10.8)
--- NOTE | 2016-08-31 06:55 | DIAGNOSTIC IMAGING REPORT ---
CHEST 2 VIEWS ROUTINE CLINICAL HISTORY: h/o congestive heart failure dyspnea COMPARISON STUDY: 08/29/2016 FINDINGS: Findings of congestive failure versus pulmonary edema. Slight improvement in aeration lung bases compared to the prior exam. Persistent prominence of pulmonary vasculature. IMPRESSION: Pulmonary edema similar to to slightly improved compared to the prior exam. Electronically signed by: Morteza King M.D. 08/31/2016 6:54 AM Dictated Date/Time: 08/31/2016 6:53 AM
[2016-08-31] MEDS ORDERED: SODIUM CHLORIDE 0.9% 1000ML 1,000 ML IV SCH (07:00)
[2016-08-31] MEDS ORDERED: SODIUM BICARBONATE 8.4% INJ 100 MEQ in STERILE WATER 1000 ML 1,000 ML IV SCH (07:00)
[2016-08-31 07:08] LABS: BUN/CREATININE RATIO 12.5 (10-20); CALCIUM 8.1 mg/dl (8.5-10.1); POTASSIUM 3.7 mmol/L (3.5-5.1)
[2016-08-31] MEDS: POTASSIUM CHLORIDE 10 MEQ TABCR PO SCH (07:34)
[2016-08-31] MEDS: FUROSEMIDE 20 MG TAB PO SCH (07:35)
[2016-08-31] MEDS: MULTIVITAMIN TAB PO SCH (07:35)
[2016-08-31] MEDS: DOCUSATE SODIUM 100 MG CAP PO SCH (07:36)
[2016-08-31] MEDS: ASPIRIN 81 MG ECTAB PO SCH (07:36)
[2016-08-31] MEDS: LOSARTAN POTASSIUM 25 MG TAB PO SCH (07:37)
[2016-08-31] MEDS: METOPROLOL TARTRATE 25 MG TAB PO SCH ×2 (07:37→20:52)
--- NOTE | 2016-08-31 07:46 | Pharmacy Progress Note ---
Glycemic Control: Progress Nt Date of Service Aug 31, 2016. Scope Glycemic Pharmacist consulted for glycemic control and to write orders per [facility] inpatient glycemic control protocol. Objective Accuchecks BSG (last 24hrs): Test 08/30/16 08:07 08/30/16 11:56 08/30/16 16:55 08/30/16 20:31 Bedside Glucose 178 mg/dl (70-99) 198 mg/dl (70-99) 182 mg/dl (70-99) 235 mg/dl (70-99) Test 08/30/16 23:57 08/31/16 06:10 08/31/16 06:11 Bedside Glucose 211 mg/dl (70-99) 130 mg/dl (70-99) Random Glucose 109 mg/dl (70-99) Laboratory Data (last 24hrs) HbA1c: 7% ON 06/30/16 Recent Pertinent Medications Outpatient Anti-diabetic Regimen: * Lantus 15 units qpm, Regular insulin 15 units w/breakfast, 12 units w/lunch, 20 units w/supper * A1c = 7 % 06/30/16 (had transfusion a few days ago, so new Hgb A1c may not be accurate indicator of recent glycemic control) The patient is currently receiving: * Basal insulin: Lantus 20 units every 24 hours given at bedtime * Correctional Insulin: Novolog Correction per scale ACHS Goal Range: Low 100 mg/dL - High 140 mg/dL Correction Factor: 18 mg/dL/unit * Prandial insulin: Per carb ratio of 1 unit per 8 grams CHO consumed Risk Factors for Insulin Resistance: * Infection: cellulitis L foot and leg, probable septic arthritis L knee- on Zosyn, daptomycin * IVF: Zosyn mixed in D5W * Recent Surgery: scheduled for vascular procedure 08/31 * Diet: type 2 diabetic, npo OR today Assessment & Plan ASSESSMENT: * Pt receiving SQ basal bolus insulin regimen for hyperglycemia secondary to baseline DM (outpatient is SQ basal bolus regimen),stress/infection, dextrose IVF, recent surgery {08/31/16} * Patient is currently receiving an average of ~50 units of insulin per day * 20 units of basal insulin * 35 units of prandial/correctional insulin * BSGs ranging 178 - 235 mg/dl over the past 24hrs * Changes needed to insulin regimen: * AM Fasting BSG = 130 mg/dl. This is in slightly in goal range for patient based on inpatient targets and co-morbidities. No changes needed to basal insulin * Post-prandial BSGs are elevated/BSGs rise throughout the day therefore need to tighten CF/CR * Total daily dose = ~60 units. May need to evenly re-distribute regimen 50%: 50% basal:prandial to prevent hypo/hyperglycemia. However, outpatient regimen is weighted towards prandial insulin. Seems that baseline insulin resistance is more severe with post-prandial hyperglycemia. Will keep regimen weighted towards prandial insulin to help prevent hypo when PO intake changes. PLAN FOR INPATIENT GLYCEMIC CONTROL: * Basal insulin: no change * Lantus 20 units SQ HS * Bolus insulin: tighten carb coverage for better postprandial control. * NovoLog per scale ACHS or Q6hrs while NPO * Goal Range: Low 100 mg/dL - High 140 mg/dL {more stringent goal range for well controlled DM at baseline} * Correction Factor: 20 mg/dL/unit * Nutritional / Prandial insulin per carb ratio of 1 unit per 7 grams CHO consumed * Please note that the plan above was derived based on current level of insulin resistance and hospital stress. These recommendations are appropriate for inpatient admission only. Plan of care upon discharge will need to be reassessed to avoid potential outpatient hypo/hyperglycemia. Thank you.
[2016-08-31 07:47] LABS: COMPLETE YES
[2016-08-31] MEDS: DAPTOmycin IV 500 MG in SODIUM CHLORIDE 0.9% 50ML 50 ML IV SCH (08:38)
--- NOTE | 2016-08-31 10:02 | Infectious Disease Progress Nt ---
Progress Note Date of Service Aug 31, 2016. Subjective Pt evaluation today including: conversation w/ patient, physical exam, chart review, lab review, review of studies, conversation w/ medical device sales consultant, review of inpatient medication list Offers no new complaints today. Remains afebrile. Knee pain better. For vascular surgery today. All Other Systems: Reviewed and Negative Medications Current Inpatient Medications Medications (Trade) Dose Ordered Sig/Rosemarie Route Start Time Stop Time Status Last Admin Dose Admin Acetaminophen (Tylenol Tab) 650 mg Q4H PRN PO 08/20/16 16:00 09/19/16 15:59 08/30/16 15:27 650 MG Aspirin (Ecotrin Tab) 81 mg QAM PO 08/21/16 09:00 09/20/16 08:59 08/31/16 07:36 81 MG Folic Acid (Folvite Tab) 1 mg QAM PO 08/21/16 09:00 09/20/16 08:59 08/31/16 07:34 1 MG Metoprolol Tartrate (Lopressor Tab) 25 mg BID PO 08/20/16 21:00 09/19/16 20:59 08/31/16 07:37 25 MG Multivitamins (Multivitamin Tab) 1 tab DAILY PO 08/21/16 09:00 09/20/16 08:59 08/31/16 07:35 1 TAB Potassium Chloride (Klor-Con M10) 10 meq DAILY PO 08/21/16 09:00 09/20/16 08:59 08/31/16 07:34 10 MEQ Glucose (Glucose 40% Gel) 15-30 GRAMS 15 GRAMS... UD PRN PO 08/20/16 21:00 09/19/16 20:59 Glucose (Glucose Chew Tab) 4-8 Tablets 4 Tabl... UD PRN PO 08/20/16 21:00 09/19/16 20:59 Dextrose (Dextrose 50% 50ML Syringe) 25-50ML OF 50% DW IV FOR... UD PRN IV 08/20/16 21:00 09/19/16 20:59 Glucagon (Glucagon Inj) 1 mg UD PRN SQ 08/20/16 21:00 09/19/16 20:59 Piperacillin Sod/ Tazobactam Sod 3.375 gm/Dextrose 115 ml @ 28.75 mls/ hr Q8H IV 08/21/16 06:00 10/02/16 05:59 08/31/16 05:32 28.75 MLS/HR Piperacillin Sod/ Tazobactam Sod (Consult) 1 ea UD PRN N/A 08/21/16 01:00 09/20/16 00:59 Hydromorphone HCl (Dilaudid Inj) 0.5 mg Q3H PRN IV 08/22/16 00:00 09/05/16 00:00 08/24/16 00:01 0.5 MG Oxycodone HCl (Roxicodone Immediate Rel Tab) 5 mg Q6H PRN PO 08/22/16 00:00 09/05/16 00:00 08/23/16 21:47 5 MG Insulin Glargine (Lantus Solostar Pen) 20 unit HS SC 08/22/16 21:00 09/21/16 20:59 08/30/16 21:01 20 UNIT Daptomycin (Consult) 1 UD PRN N/A 08/23/16 12:30 09/22/16 12:29 Senna (Senokot Tab) 17.2 mg HS PO 08/23/16 21:00 09/22/16 20:59 08/30/16 21:15 17.2 MG Docusate Sodium (coLACE CAP) 100 mg BID PO 08/23/16 21:00 09/22/16 20:59 08/31/16 07:36 100 MG Heparin Sodium (Porcine) (Heparin Sq 5000 Unit/0.5ml) 5,000 unit Q12 SQ 08/24/16 09:00 09/20/16 08:59 Future Hold 08/30/16 21:04 5,000 UNIT Ondansetron HCl (Zofran Inj) 4 mg Q6H PRN IV 08/23/16 22:30 09/22/16 22:29 08/24/16 06:41 4 MG Daptomycin 500 mg/ Sodium Chloride 60 ml @ 100 mls/hr Q24H IV 08/30/16 09:00 10/06/16 08:59 08/31/16 08:38 100 MLS/HR Polyethylene (Miralax Powder Packet) 17 gm HS PO 08/29/16 21:00 09/28/16 20:59 08/30/16 21:15 17 GM Sodium Chloride 1,000 ml @ 82 mls/hr [id number] IV 08/31/16 07:00 09/30/16 06:59 08/31/16 07:08 82 MLS/HR Sodium Bicarbonate 100 meq/Sterile Water 1,100 ml @ 80 mls/hr [id number] IV 08/31/16 07:00 09/30/16 06:59 08/31/16 08:38 80 MLS/HR Acetylcysteine (Acetylcysteine Cap) 600 mg BID@0600,1800 PO 08/30/16 18:00 09/01/16 06:01 08/31/16 05:32 600 MG Cefazolin Sodium 60 ml @ 120 mls/hr PREOP IV 08/31/16 06:00 08/31/16 16:00 Miscellaneous Information (Consult Glycemic Management Pharmacy) 1 ea UD N/A 08/30/16 16:13 09/29/16 16:12 Insulin Aspart (novoLOG ASPART) SLIDING SCALE G... Q6 SC 08/31/16 00:00 09/30/16 00:00 08/31/16 00:11 4 UNITS Albuterol/ Ipratropium (Combivent Respimat Inh) 1 puffs QID INH 08/31/16 13:00 09/30/16 12:59 Objective Vital Signs Date Time Temp Pulse Resp B/P (MAP) Pulse Ox O2 Delivery O2 Flow Rate FiO2 08/31/16 08:51 93 Room Air 08/31/16 08:44 93 Room Air 08/31/16 08:00 37.2 92 22 118/58 (78) 93 Room Air 08/31/16 07:45 Room Air 08/31/16 07:35 70 121/57 (78) 08/31/16 05:01 37.2 70 22 118/58 93 Room Air 08/30/16 23:25 Room Air 08/30/16 23:17 36.9 87 18 106/62 (77) 97 Room Air 08/30/16 19:09 85 16 98 Room Air 08/30/16 16:58 37.6 08/30/16 16:48 37.5 101 20 112/54 (73) 96 Room Air 08/30/16 15:35 Room Air 08/30/16 14:56 37.7 97 20 136/63 (87) 96 Room Air 08/30/16 14:15 94 14 99 Room Air 08/30/16 11:10 82 14 99 Room Air 08/30/16 10:28 99 144/57 (86) Physical Exam General Appearance: WD/WN, no apparent distress Eyes: normal inspection, sclerae normal ENT: normal ENT inspection, pharynx normal Neck: supple, thyroid normal, trachea midline Respiratory/Chest: lungs clear, normal breath sounds, no respiratory distress Cardiovascular: regular rate, rhythm, no gallop, no murmur Abdomen: normal bowel sounds, non tender, soft, no organomegaly Extremities: non-tender, + pedal edema, + slow capillary refill Neurologic/Psychiatric: alert, oriented x 3 Skin: normal color, no rash, + pertinent finding (gangrenous left 3rd toe with surrounding erythema) Lymphatic: no adenopathy Laboratory Results Last 24 Hours Test 08/30/16 11:56 08/30/16 16:30 08/30/16 16:55 08/30/16 20:31 Bedside Glucose 198 mg/dl 182 mg/dl 235 mg/dl Hemoglobin 8.3 g/dL Hematocrit 25.8 % Test 08/30/16 23:57 08/31/16 06:10 08/31/16 06:11 Bedside Glucose 211 mg/dl 130 mg/dl White Blood Count 10.34 K/uL Red Blood Count 2.84 M/uL Hemoglobin 8.6 g/dL Hematocrit 26.3 % Mean Corpuscular Volume 92.6 fL Mean Corpuscular Hemoglobin 30.3 pg Mean Corpuscular Hemoglobin Concent 32.7 g/dl Platelet Count 218 K/uL Mean Platelet Volume 9.9 fL Neutrophils (%) (Auto) 78.5 % Lymphocytes (%) (Auto) 6.2 % Monocytes (%) (Auto) 10.6 % Eosinophils (%) (Auto) 4.1 % Basophils (%) (Auto) 0.3 % Neutrophils # (Auto) 8.12 K/uL Lymphocytes # (Auto) 0.64 K/uL Monocytes # (Auto) 1.10 K/uL Eosinophils # (Auto) 0.42 K/uL Basophils # (Auto) 0.03 K/uL RDW Standard Deviation 57.6 fL RDW Coefficient of Variation 17.1 % Immature Granulocyte % (Auto) 0.3 % Immature Granulocyte # (Auto) 0.03 K/uL Red Blood Cell Morphology Unremarkable Sodium Level 140 mmol/L Potassium Level 3.7 mmol/L Chloride Level 104 mmol/L Carbon Dioxide Level 24 mmol/L Anion Gap 12.0 mmol/L Blood Urea Nitrogen 25 mg/dl Creatinine 2.00 mg/dl Est Creatinine Clear Calc Drug Dose 26.4 ml/min Estimated GFR () 33.5 Estimated GFR (Non- 28.9 BUN/Creatinine Ratio 12.5 Random Glucose 109 mg/dl Calcium Level 8.1 mg/dl Magnesium Level 2.0 mg/dl Total Creatine Kinase 138 U/L Assessment and Plan (1) Peripheral vascular disease Status: 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 Patient to continue on present Rx pending results of surgery today. Will follow.
[2016-08-31] MEDS ORDERED: GELATIN SPONGE 12-7MM ONE (10:18)
[2016-08-31] MEDS ORDERED: THROMBIN FOR SOLN 20000 UNIT KIT ONE (10:18)
[2016-08-31] MEDS ORDERED: LIDOCAINE HCL 1% 20 ML VIAL ONE (10:19)
[2016-08-31] MEDS ORDERED: HEPARIN SOD (PORCINE) 1000 UNIT/ML 10 ML VIAL ONE ×2 (10:19→11:57)
[2016-08-31] MEDS ORDERED: CEFAZOLIN SOD 1 GM VIAL ONE (10:19)
[2016-08-31] MEDS ORDERED: BUPIVACAINE/EPINEPHRINE 0.5% MPF 1:200,000 30 ML VIAL ONE (10:19)
[2016-08-31] MEDS ORDERED: PAPAVERINE HCL INJ 30 MG/ML 2 ML VIAL ONE (10:25)
--- NOTE | 2016-08-31 10:27 | Progress Note ---
Progress Note Date of Service Aug 31, 2016. Progress Note Patient for left femoral endarterectomy and possible intervention of the lower leg. I have discussed the risks options and benefits of the procedure with the patient. The patient understands the risks options and benefits and agrees to the procedure. I have examined the patient, reviewed the History & Physical and in the interval since the performance of the History & Physical I have noted the following changes of clinical significance: No changes noted
[2016-08-31] MEDS ORDERED: ROCURONIUM BROMIDE 10 MG/ML 5 ML VIAL ONE (10:29)
[2016-08-31] MEDS ORDERED: PROPOFOL IV EMULSION 10 MG/ML 20 ML VIAL IV ONE (10:29)
[2016-08-31] MEDS ORDERED: LIDOCAINE HCL 2% 2 ML VIAL (20MG/ML) ONE (10:29)
[2016-08-31] MEDS ORDERED: DEXAMETHASONE SOD INJ 4 MG/ML VIAL ONE (10:29)
[2016-08-31] MEDS ORDERED: FENTANYL CITRATE INJ 50 MCG/1 ML 2 ML VIAL ONE (10:29)
[2016-08-31] MEDS ORDERED: GLYCOPYRROLATE INJ 0.2 MG/ML VIAL ONE ×2 (10:29→14:16)
[2016-08-31] MEDS ORDERED: NEOSTIGMINE METHYLSULFATE 5 MG/5 ML SYR ONE (10:29)
[2016-08-31] MEDS ORDERED: ONDANSETRON INJ 2 MG/ML 2 ML VIAL ONE (10:29)
[2016-08-31] MEDS ORDERED: ATROPINE SULFATE 0.1 MG/ML 5ML SYR IV PRN (10:45)
[2016-08-31] MEDS ORDERED: ONDANSETRON INJ 2 MG/ML 2 ML VIAL IV PRN (10:45)
[2016-08-31] MEDS ORDERED: LABETALOL HCL IV 5 MG/ML 20ML IV PRN (10:45)
[2016-08-31] MEDS ORDERED: HYDROmorphone INJ 2 MG/ML SYR/VIAL IV PRN (10:45)
[2016-08-31] MEDS ORDERED: GELATIN SPONGE SZ 100 ONE (10:54)
[2016-08-31] MEDS ORDERED: ETOMIDATE 2 MG/ML 20 ML VIAL IV ONE (11:32)
[2016-08-31] MEDS ORDERED: PHENYLEPHRINE HCL INJ 10 MG/ML VIAL ONE (11:52)
[2016-08-31] MEDS ORDERED: EpHEDrine SULFATE 50MG/5ML SYR ONE (11:52)
--- NOTE | 2016-08-31 13:40 | [facility] Post Operative Brief Note ---
Immediate Operative Summary Operative Date Aug 31, 2016. Pre-Operative Diagnosis Peripheral vascular disease, left third toe gangrene, septic arthritis of the left knee Post-Operative Diagnosis Same as preop Procedure(s) Performed Left Lower Extremity Common Femoral Endarterectomy with patch Surgeon Dr. Jefferson Low Voltage Electrician Surgeon(s) Mi GONZALEZ Estimated Blood Loss 250 ML Findings near occlusion left head men's golf coach Specimens A. Left Femoral Plaque Anesthesia Gen Complication(s) None Disposition Recovery Room / PACU
[2016-08-31] MEDS ORDERED: OXYCODONE/ACETAMINOPHEN 5-325 TAB PO PRN (13:45)
[2016-08-31] MEDS ORDERED: MoRPHine SULFATE 2 MG/ML CARP IV PRN (13:45)
[2016-08-31] MEDS ORDERED: MoRPHine SULFATE 4 MG/ML 1 ML CARP\\VIAL IV PRN (14:00)
[2016-08-31 14:31] LABS: BASO % 0.2 %; BASO ABS # 0.03 K/uL (0-0.2); EOS % 1.8 %; HEMATOCRIT 26.7 % (42-52); IG% 0.4 %; LYMPH % 3.4 %; LYMPH ABS # 0.49 K/uL (1.2-3.4); MEAN CELL VOLUME 92.4 fL (80-100); MEAN CORPUSCULAR HEMOGLOBIN 29.1 pg (25-34); MEAN CORPUSCULAR HGB CONC 31.5 g/dl (32-36); MEAN PLATELET VOLUME 9.4 fL (7.4-10.4); MONO % 8.4 %; NEUT % 85.8 %; PLATELET COUNT 221 K/uL (130-400); RED BLOOD COUNT 2.89 M/uL (4.7-6.1); WHITE BLOOD COUNT 14.33 K/uL (4.8-10.8)
--- NOTE | 2016-08-31 14:34 | Anesthesiology Progress Note ---
Anesthesia Post Op Note Date & Time Aug 31, 2016 at 14:33 Vital Signs Pain Intensity: 0 Vital Signs Past 12 Hours Date Time Temp Pulse Resp B/P (MAP) Pulse Ox O2 Delivery O2 Flow Rate FiO2 08/31/16 14:30 90 28 121/68 97 Nasal Cannula 2 08/31/16 14:20 96 28 135/65 97 Mask 10 08/31/16 14:10 100 28 127/73 97 Mask 10 08/31/16 14:03 38.2 95 28 132/75 98 Mask 10 08/31/16 08:51 93 Room Air 08/31/16 08:44 93 Room Air 08/31/16 08:00 37.2 92 22 118/58 (78) 93 Room Air 08/31/16 07:45 Room Air 08/31/16 07:35 70 121/57 (78) 08/31/16 05:01 37.2 70 22 118/58 93 Room Air Notes Mental Status: alert / awake / arousable, participated in evaluation Pt Amnestic to Procedure: Yes Nausea / Vomiting: adequately controlled Pain: adequately controlled Airway Patency, RR, SpO2: stable & adequate BP & HR: stable & adequate Hydration State: stable & adequate Anesthetic Complications: no major complications apparent
--- NOTE | 2016-08-31 14:55 | OPERATIVE REPORT ---
DATE OF OPERATION: 08/31/2016 PREOPERATIVE DIAGNOSIS: Nonhealing left 3rd toe wound. POSTOPERATIVE DIAGNOSES: Nonhealing left 3rd toe wound with peripheral vascular disease. PROCEDURE: Left common femoral endarterectomy with patch angioplasty. SURGEON: Dr. Baldo Jefferson. ACCOUNTS PAYABLE SPECIALIST: Dr. Mechelle Mccain and LISA Rocha ANESTHESIA: General anesthesia plus local. ESTIMATED BLOOD LOSS: 250 mL. CONDITION: Stable. COMPLICATIONS: None. SPECIMENS: Left femoral artery plaque. INDICATIONS: Mr. Chaz Flores is an 86-year-old gentleman with history of atrial fibrillation, diabetes, hypertension, chronic kidney disease, arthritis, GERD, anemia, cerebrovascular disease, peripheral arterial disease, status post right femoral to DP bypass in 2003, peripheral vascular disease with bilateral lower extremity claudication who has a nonhealing wound on his left 3rd toe. He underwent a CTA that showed a significant plaque in the left common femoral artery as well as SFA and tibial disease. For this reason, he was recommended to undergo a left common femoral endarterectomy. The risks, benefits and alternatives were discussed with the patient and he consented to the procedure. DESCRIPTION OF PROCEDURE: The patient was taken to the operating room and placed in the supine position. General endotracheal anesthesia was induced by anesthesia colleagues. The left groin and thigh were prepped and draped in the usual sterile fashion. A safety timeout was performed and the patient, procedure and sidedness were correctly identified. A longitudinal incision was made over the femoral artery. Electrocautery was used to dissect subcutaneous tissues down to the femoral sheath. The femoral sheath was opened using Metzenbaum scissors and the common femoral artery was identified. We extended our dissection proximally up under the inguinal ligament in order to find a soft area to clamp. We extended our dissection distally and were able to identify the SFA and profunda. The common femoral was heavily calcified extending up into the distal external. We were able to find one small area that was soft to clamp and required several attempts with multiple clamps, but ultimately were able to clamp with an angled DeBakey vascular clamp. Scalpel was used to make a longitudinal arteriotomy. This was extended with Huynh scissors. There was pulsatile bleeding appreciated upon creating the arteriotomy and a #5 Shanelle was passed proximally and inflated into the distal external. The angled DeBakey clamp was repositioned ultimately provided good proximal control. The very extensive femoral plaque was removed in the usual fashion. There was good backbleeding from the profunda. Heparinized saline was used to irrigate the arterial wall and small bits of plaque were removed. A [place] Acuseal patch was then brought onto the field. This was sewn in with a [place]-Mariano CV5 suture. This was done in a 4 quadrant fashion beginning at the proximal common femoral. Prior to completion of the patch, all arteries were back bled and the artery was flushed with heparinized saline. Several 6-0 Prolene sutures were used to secure the patch to reinforce the patch in 2 areas. Thrombin Gelfoam was applied overlying the patch and manual pressure was held for approximately 5 minutes. There appeared to be good hemostasis. The wound was irrigated. The femoral sheath was reapproximated using 2-0 Vicryl in a running fashion. The subcutaneous tissues were reapproximated using 3-0 Vicryl in a running fashion. Skin was reapproximated using skin javier. 4 mL of local anesthesia was injected to skin surrounding the surgical wound. A sterile dressing was applied. The patient was awakened from anesthesia. He was transferred to the PACU in stable condition. He had a Dopplerable peroneal signal at the close of the case. Dr. Baldo Jefferson was present and scrubbed for the entire procedure. I, Dr. Jefferson was present and scrubed for the entire procedure. I attest to the content of the Intraoperative Record and any orders documented therein. Any exceptions are noted below. [id number]
[2016-08-31 15:13] LABS: BUN/CREATININE RATIO 11.7 (10-20); CALCIUM 8.1 mg/dl (8.5-10.1); CREATININE 1.9 mg/dl (0.60-1.40); POTASSIUM 4.4 mmol/L (3.5-5.1)
[2016-08-31 15:16] LABS: COMPLETE YES; POLYCHROMASIA 1+
[2016-08-31] MEDS ORDERED: NURSING VERBAL MED ORDER ONE (16:00)
[2016-08-31] MEDS ORDERED: BISACODYL 10 MG SUPP PR PRN (16:15)
[2016-08-31] MEDS ORDERED: FUROSEMIDE 40 MG/4 ML VIAL IV STA (16:15)
--- NOTE | 2016-08-31 16:17 | DIAGNOSTIC IMAGING REPORT ---
CHEST ONE VIEW PORTABLE CLINICAL HISTORY: tachypnea COMPARISON STUDY: 08/31/2016 FINDINGS: The heart is enlarged. There are postsurgical changes of a midline sternotomy. There is radiographic evidence of interstitial edema. There are progressive perihilar airspace opacities, likely representing worsening pulmonary edema.[ There are small pleural effusions. IMPRESSION: 1. Worsening bilateral perihilar airspace opacities, likely representing progressive pulmonary edema. Clinical and radiographic follow-up is recommended. Electronically signed by: Michoacano Christopher M.D. 08/31/2016 4:16 PM Dictated Date/Time: 08/31/2016 4:15 PM
[2016-08-31] MEDS ORDERED: FUROSEMIDE 40 MG/4 ML VIAL ONE (16:28)
[2016-08-31] MEDS: IPRATROPIUM BROMIDE/ALBUTEROL respimat INH INH SCH ×3 (16:35→20:51)
[2016-08-31] MEDS ORDERED: DOCUSATE SODIUM/SENNA 50/8.6MG TAB PO ONE (17:00)
--- NOTE | 2016-08-31 18:26 | CRITICAL CARE CONSULTATION ---
DATE OF CONSULTATION: 08/31/2016 CHIEF COMPLAINT: Lower extremity pain. HISTORY OF PRESENT ILLNESS: The patient is a very nice 86-year-old gentleman with multiple medical problems such as peripheral vascular disease, diabetes mellitus, chronic atrial fibrillation and chronic kidney disease. He is admitted to the intensive care unit status post a left common femoral endarterectomy with patch. There were no reported intraoperative complications and he was treated preoperatively with a sodium bicarbonate infusion as well as acetylcysteine. Intraoperatively, he had 700 mL of crystalloid, estimated blood loss 250 mL, and urine output 630 mL. There were no reported issues with intubation, which was achieved with a #3 MAC blade and 7.5 endotracheal tube. He was taken from the OR to the PACU and in the ICU has no specific complaints, although he appears tachypneic. He has some mild discomfort of the left lower extremity, but otherwise says he feels pretty good. This patient was originally admitted to the hospital on August 20 after having his toenails cut 3 days earlier. He had pain and erythema of the left third toe. The erythema spread to his leg which is when he sought medical attention. He was initially placed on vancomycin and cefotaxime, which was changed to daptomycin and Zosyn after he was seen in the Emergency Department. He had acute kidney injury on chronic kidney disease and was seen by multiple consultants. He underwent a left knee aspiration on August 22 and an arthroscopic debridement of the left knee on August 23, and grew micrococcus from the joint fluid. He remains on daptomycin and Zosyn and is being seen by the infectious disease service. He underwent CT angiogram on August 25 among multiple other radiographic studies during this admission. The angiogram showed severe arterial occlusive atherosclerotic change of all major arterial structures in the lower legs with severely compromised vascular flow and moderate collateral vessels formation. Please see the report for further details. The vascular surgery service was consulted and he was taken to the operating room today, hoping that his creatinine would improve over the past several days. During this admission, he has also had an echocardiogram on August 29 showing ejection fraction of 45% to 50%, mild concentric left ventricular hypertrophy and severe biatrial enlargement. His systolic pulmonary artery pressure was 55 mmHg. He was transfused 1 unit of packed red blood cells while here and he has not been on anticoagulation for his chronic atrial fibrillation due to history of gait instability and epistaxis. He was taken to the operating room secondary to significant plaque in the left common femoral artery and superficial femoral artery as well as tibial disease. PAST MEDICAL HISTORY: Diabetes mellitus, insulin requiring; chronic atrial fibrillation, not on anticoagulation as an outpatient; cellulitis; neuropathy; epistaxis; chronic kidney disease stage III, followed by Dr. Luo, baseline creatinine around 1.6; rheumatoid arthritis; peripheral vascular disease; hyperlipidemia; hypertension; retinopathy; coronary artery disease. PAST SURGICAL HISTORY: Status post amputation of the right second toe, aortic valve replacement, right fem-pop to DP bypass in 2003, cataract extractions, cholecystectomy, coronary artery bypass grafting surgery. ALLERGIES: LISINOPRIL. PRESENT MEDICATIONS: Acetaminophen, acetylcysteine, Combivent, aspirin, daptomycin day-11, folic acid, hydromorphone, NovoLog, Lantus, metoprolol, morphine, multivitamin, Zofran, oxycodone, Roxicodone and Percocet, Zosyn day-11, MiraLax, potassium, Colace. SOCIAL HISTORY: He is and lives alone. He smoked many years ago and does not drink any alcohol. FAMILY HISTORY: Significant for father with coronary artery disease, brother with kidney disease and cancer and a sister with cancer. REVIEW OF SYSTEMS: He reports some trouble with his vision. 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 He is mildly short of breath, but denies chest pain and nausea. He denies abdominal pain and has not had a bowel movement in at least 5 days. Appetite is poor. Left leg has been edematous through hospitalization. Additional review of systems are negative or noncontributory in a 12-point system other than what is presented in the history of present illness. PHYSICAL EXAMINATION: VITAL SIGNS: Temperature 37.4, heart rate 97, respiratory rate 28, blood pressure 124/56, oxygen saturation 99% on 3 liters nasal cannula. HEENT: The right pupil is irregular, both are approximately 2 mm and minimally reactive. The oral mucosa is mildly dry. Posterior pharynx is clear. He wears upper dentures. NECK: No adenopathy. LUNGS: Bibasilar rales. No rhonchi or wheezes. HEART: Irregularly irregular with a 2/6 systolic murmur heard best at the right sternal border. ABDOMEN: Round, firm, nontender, mildly distended, hypoactive bowel sounds. EXTREMITIES: Warm. The left groin dressing is clean, dry and intact. There are no temperatures changes down the leg. Dorsalis pedis pulse on the left is audible by Doppler. The leg has 1+ edema. The right leg has little if any edema and I am unable to palpate the dorsalis pedis pulse or posterior tibial pulse. Capillary refill is adequate. SKIN: Shows ecchymosis over the abdomen which is scattered. LABORATORY DATA: White blood cell count 14.3, hemoglobin 8.4, hematocrit 26.7, platelets 221. Sodium 139, potassium 4.4, chloride 106, CO2 24, BUN 22, creatinine 1.9, blood sugar 170. Cultures were reviewed. No growth on blood cultures from August 20. No growth on joint fluid from August 22. Left knee joint fluid from August 23 shows micrococcus sensitivities to follow. Portable chest x-ray from this afternoon shows perihilar airspace opacities and likely pulmonary edema. EKG from today shows atrial fibrillation with controlled ventricular response, premature ventricular contractions, nonspecific ST-T wave changes. IMPRESSION: 1. Postop day 0 status post left common femoral endarterectomy with patch. 2. Tachypnea and pulmonary edema on chest x-ray. He is likely volume overloaded. IV fluids have been stopped and Lasix has been given. 3. Anemia, status post 1 unit packed red blood cells on 08/26, no signs of active bleeding. 4. Severe peripheral vascular disease. 5. Septic arthritis with micrococcus growing from the left knee, on daptomycin and Zosyn and being followed by the infectious disease service. 6. Left lower extremity cellulitis, improved. 7. Acute kidney injury on chronic kidney disease, now off his sodium bicarbonate infusion. He continues on acetylcysteine. 8. Constipation. 9. Chronic atrial fibrillation. 10. Diabetes mellitus. 11. History of rheumatoid arthritis. PLAN: 1. NEUROLOGIC: Discontinue Percocet and hydromorphone. Use Roxicodone and morphine for pain control. 2. PULMONARY: Continue diuresis. Stop IV fluids and reassess the need for sodium bicarbonate infusion later tonight or tomorrow. Incentive spirometry has been added. Followup chest x-ray in the morning. Continue bronchodilators. 3. CARDIOVASCULAR: Continue metoprolol for rate control. No anticoagulation due to epistaxis and unsteady gait. Continue frequent neurovascular checks, particularly of the left lower extremity. 4. GASTROINTESTINAL: Continue senna and Colace. I have added Dulcolax suppository. He is also on MiraLax. 5. RENAL: Follow creatinine and dose medications appropriately. Hold IV fluids for now, continue acetylcysteine. 6. ENDOCRINE: Continue Lantus with sliding scale insulin. Blood sugars have been under relatively good control. 7. HEMATOLOGIC: Follow H&H. Watch for signs of bleeding. 8. GENERAL: I will reorder physical therapy and occupational therapy to begin tomorrow. 9. INFECTIOUS DISEASE: Continue daptomycin and Zosyn. Thank you for asking me to see this nice gentleman. Call me with any questions or concerns. MOOKIED
[2016-08-31] MEDS: INSULIN GLARGINE SOLOSTAR 100 UNITS/ML 3 ML PEN SC SCH (20:45)
[2016-08-31] MEDS: POLYETHYLENE (MIRALAX) 17 GM PACK PO SCH (20:52)
--- NOTE | 2016-08-31 21:10 | Progress Note ---
Medicine Progress Note Date & Time of Visit: Aug 31, 2016 at 17:00. Subjective 86 yo M with severe PAD p/w septic arthritis and gangrene of L toe. s/p Left common femoral endarterectomy with patch angioplasty today. Pt states that he has no pain and feels well. He is tolerating PO. He is in the ICU and is clearly tachypnic with evidence of fluid overload on exam, however, he denies being short of breath. He received 1 Unit of pRBCs intraoperatively and one dose of Lasix. Objective Last 8 Hrs Date Time Temp Pulse Resp B/P (MAP) Pulse Ox O2 Delivery O2 Flow Rate FiO2 08/31/16 18:00 37.2 101 27 127/54 (78) 98 Nasal Cannula 3.0 08/31/16 17:00 37.5 103 25 105/59 (74) 98 Nasal Cannula 3.0 08/31/16 16:00 37.4 97 28 124/56 (78) 98 Nasal Cannula 3.0 08/31/16 16:00 99 Nasal Cannula 3.0 08/31/16 15:00 37.4 91 28 105/57 (73) 94 Nasal Cannula 3.0 08/31/16 14:40 37.5 92 28 127/56 95 Nasal Cannula 3 08/31/16 14:30 90 28 121/68 97 Nasal Cannula 2 08/31/16 14:20 96 28 135/65 97 Mask 10 08/31/16 14:10 100 28 127/73 97 Mask 10 08/31/16 14:03 38.2 95 28 132/75 98 Mask 10 Physical Exam: GEN: WNWD, in no acute distress, alert and appropriate, tachypnea noted and patient has supplemental oxygen in place. HEENT: NC/AT, normal sclerae, MMM CARDIO: irreg rhythm, reg rate, S1/2 heard without m/g/r LUNGS: CTA bilaterally, crackles at bases bilaterally, rales or wheezes, good diaphragmatic excursion ABD: soft, non-tender, non-distended, no rebound or guarding, +BS EXTREMITY: warm and well perfused, some sensation deficits all over feet bilaterally, L toe infection present without drainage, and some surrounding superficial erythema spreading just proximally to the 3rs left toe, however, this is improved today. Dry dressing is in place and is c/d/i. NEURO: CN 2-12 grossly intact, some sensation loss in feet bilaterally, no gross focal deficits. MUSC: moves all extremities equally. Can wiggle L toes. SKIN: warm and dry, pale Laboratory Results: 08/31/16 14:24 Red Blood Count 2.89, Mean Corpuscular Volume 92.4, Mean Corpuscular Hemoglobin 29.1, Mean Corpuscular Hemoglobin Concent 31.5, Mean Platelet Volume 9.4, Neutrophils (%) (Auto) 85.8, Lymphocytes (%) (Auto) 3.4, Monocytes (%) (Auto) 8.4, Eosinophils (%) (Auto) 1.8, Basophils (%) (Auto) 0.2, Neutrophils # (Auto) 12.28, Lymphocytes # (Auto) 0.49, Monocytes # (Auto) 1.21, Eosinophils # (Auto) 0.26, Basophils # (Auto) 0.03 08/31/16 14:24 Test 08/20/16 14:40 08/20/16 16:21 08/20/16 21:30 08/23/16 11:10 Erythrocyte Sedimentation Rate 50 mm/hr (0-14) Prothrombin Time 12.4 SECONDS (9.0-12.0) Prothromb Time International Ratio 1.2 (0.9-1.1) Activated Partial Thromboplast Time 27.5 SECONDS (21.0-31.0) Partial Thromboplastin Ratio 1.1 Total Bilirubin 1.2 mg/dl (0.2-1) Aspartate Amino Transf (AST/SGOT) 21 U/L (15-37) Alanine Aminotransferase (ALT/SGPT) 22 U/L (12-78) Alkaline Phosphatase 67 U/L (45-117) C-Reactive Protein 7.48 mg/dl (0-0.29) Total Protein 8.7 gm/dl (6.4-8.2) Albumin 2.8 gm/dl (3.4-5.0) Globulin 5.9 gm/dl (2.5-4.0) Albumin/Globulin Ratio 0.5 (0.9-2) Chemistry Specimen Hemolysis Lactic Acid Level 1.2 mmol/L (0.4-2.0) Urine Color YELLOW Urine Appearance CLEAR (CLEAR) Urine pH 5.0 (4.5-7.5) Urine Specific [place] 1.016 (1.000-1.030) Urine Protein 1+ (NEG) Urine Glucose (UA) NEG (NEG) Urine Ketones NEG (NEG) Urine Occult Blood NEG (NEG) Urine Nitrite NEG (NEG) Urine Bilirubin NEG (NEG) Urine Urobilinogen NEG (NEG) Urine Leukocyte Esterase NEG (NEG) Urine WBC (Auto) 1-5 /hpf (0-5) Urine RBC (Auto) 0-4 /hpf (0-4) Urine Hyaline Casts (Auto) 1-5 /lpf (0-5) Urine Epithelial Cells (Auto) >30 /lpf (0-5) Urine Bacteria (Auto) NEG (NEG) Urine Renal Epithelial Cells 0-5 /lpf (0-5) Synovial Fluid Source KNEE Synovial Fluid Color DEBRA Synovial Fluid Appearance CLOUDY Synovial Fluid WBC 35821 /uL (0-200) Synovial Fluid RBC 46572 /uL Synovial Fluid Polynuclear WBCs % 95.4 % Synovial Fluid Mononuclear WBCs % 4.6 % Synovial Fluid Crystals Test 08/29/16 06:20 08/31/16 06:10 08/31/16 14:24 08/31/16 19:56 Pro-B-Type Natriuretic Peptide 17148 pg/ml (0-1800) Red Blood Cell Morphology Unremarkable Magnesium Level 2.0 mg/dl (1.8-2.4) Total Creatine Kinase 138 U/L (39-308) White Blood Count 14.33 K/uL (4.8-10.8) Red Blood Count 2.89 M/uL (4.7-6.1) Hemoglobin 8.4 g/dL (14.0-18.0) Hematocrit 26.7 % (42-52) Mean Corpuscular Volume 92.4 fL (80-100) Mean Corpuscular Hemoglobin 29.1 pg (25-34) Mean Corpuscular Hemoglobin Concent 31.5 g/dl (32-36) Platelet Count 221 K/uL (130-400) Mean Platelet Volume 9.4 fL (7.4-10.4) Neutrophils (%) (Auto) 85.8 % Lymphocytes (%) (Auto) 3.4 % Monocytes (%) (Auto) 8.4 % Eosinophils (%) (Auto) 1.8 % Basophils (%) (Auto) 0.2 % Neutrophils # (Auto) 12.28 K/uL (1.4-6.5) Lymphocytes # (Auto) 0.49 K/uL (1.2-3.4) Monocytes # (Auto) 1.21 K/uL (0.11-0.59) Eosinophils # (Auto) 0.26 K/uL (0-0.5) Basophils # (Auto) 0.03 K/uL (0-0.2) RDW Standard Deviation 58.5 fL (36.4-46.3) RDW Coefficient of Variation 17.4 % (11.5-14.5) Immature Granulocyte % (Auto) 0.4 % Immature Granulocyte # (Auto) 0.06 K/uL (0.00-0.02) Polychromasia 1+ Anion Gap 9.0 mmol/L (3-11) Est Creatinine Clear Calc Drug Dose 27.7 ml/min Estimated GFR () 35.7 Estimated GFR (Non- 30.8 BUN/Creatinine Ratio 11.7 (10-20) Calcium Level 8.1 mg/dl (8.5-10.1) Bedside Glucose 222 mg/dl (70-99) Date/Time Source Procedure Growth Status 08/20/16 16:21 Blood Blood Culture - Final NO GROWTH Complete 08/23/16 19:10 Joint Fluid/Space (Synovial) Knee Left Gram Stain - Final Complete 08/23/16 19:10 Bacterial Culture - Final Micrococcus Species Complete 08/31/16 15:00 Nasal MRSA DNA Surveillance Screen - Final Specimen Negative for MRSA by DNA Probe Complete Last 24 Hours Test 08/30/16 20:31 08/30/16 23:57 08/31/16 06:10 08/31/16 06:11 Bedside Glucose 235 mg/dl 211 mg/dl 130 mg/dl White Blood Count 10.34 K/uL Red Blood Count 2.84 M/uL Hemoglobin 8.6 g/dL Hematocrit 26.3 % Mean Corpuscular Volume 92.6 fL Mean Corpuscular Hemoglobin 30.3 pg Mean Corpuscular Hemoglobin Concent 32.7 g/dl Platelet Count 218 K/uL Mean Platelet Volume 9.9 fL Neutrophils (%) (Auto) 78.5 % Lymphocytes (%) (Auto) 6.2 % Monocytes (%) (Auto) 10.6 % Eosinophils (%) (Auto) 4.1 % Basophils (%) (Auto) 0.3 % Neutrophils # (Auto) 8.12 K/uL Lymphocytes # (Auto) 0.64 K/uL Monocytes # (Auto) 1.10 K/uL Eosinophils # (Auto) 0.42 K/uL Basophils # (Auto) 0.03 K/uL RDW Standard Deviation 57.6 fL RDW Coefficient of Variation 17.1 % Immature Granulocyte % (Auto) 0.3 % Immature Granulocyte # (Auto) 0.03 K/uL Red Blood Cell Morphology Unremarkable Sodium Level 140 mmol/L Potassium Level 3.7 mmol/L Chloride Level 104 mmol/L Carbon Dioxide Level 24 mmol/L Anion Gap 12.0 mmol/L Blood Urea Nitrogen 25 mg/dl Creatinine 2.00 mg/dl Est Creatinine Clear Calc Drug Dose 26.4 ml/min Estimated GFR () 33.5 Estimated GFR (Non- 28.9 BUN/Creatinine Ratio 12.5 Random Glucose 109 mg/dl Calcium Level 8.1 mg/dl Magnesium Level 2.0 mg/dl Total Creatine Kinase 138 U/L Test 08/31/16 14:15 08/31/16 14:24 08/31/16 16:31 08/31/16 19:56 Bedside Glucose 187 mg/dl 194 mg/dl 222 mg/dl White Blood Count 14.33 K/uL Red Blood Count 2.89 M/uL Hemoglobin 8.4 g/dL Hematocrit 26.7 % Mean Corpuscular Volume 92.4 fL Mean Corpuscular Hemoglobin 29.1 pg Mean Corpuscular Hemoglobin Concent 31.5 g/dl Platelet Count 221 K/uL Mean Platelet Volume 9.4 fL Neutrophils (%) (Auto) 85.8 % Lymphocytes (%) (Auto) 3.4 % Monocytes (%) (Auto) 8.4 % Eosinophils (%) (Auto) 1.8 % Basophils (%) (Auto) 0.2 % Neutrophils # (Auto) 12.28 K/uL Lymphocytes # (Auto) 0.49 K/uL Monocytes # (Auto) 1.21 K/uL Eosinophils # (Auto) 0.26 K/uL Basophils # (Auto) 0.03 K/uL RDW Standard Deviation 58.5 fL RDW Coefficient of Variation 17.4 % Immature Granulocyte % (Auto) 0.4 % Immature Granulocyte # (Auto) 0.06 K/uL Polychromasia 1+ Sodium Level 139 mmol/L Potassium Level 4.4 mmol/L Chloride Level 106 mmol/L Carbon Dioxide Level 24 mmol/L Anion Gap 9.0 mmol/L Blood Urea Nitrogen 22 mg/dl Creatinine 1.90 mg/dl Est Creatinine Clear Calc Drug Dose 27.7 ml/min Estimated GFR () 35.7 Estimated GFR (Non- 30.8 BUN/Creatinine Ratio 11.7 Random Glucose 170 mg/dl Calcium Level 8.1 mg/dl Date/Time Source Procedure Growth Status 08/31/16 15:00 Nasal MRSA DNA Surveillance Screen - Final Specimen Negative for MRSA by DNA Probe Complete Assessment & Plan 86 yo M with severe PAD p/w 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 1. L foot gangrene- no osteo on xray, BCx no growth to date, IV Vanc and ceftriaxone initially started, then changed to Dapto and Zosyn. ID following and recommends to cont this therapy for now. A small amount of erythema persists on dorsal side of foot but appears somewhat improved. Of note, patient is a diabetic with significant diabetic neuropathy. 08/31: pt underwent endarterectomy of left leg today, tolerating procedure well. No pain post-op and recovering in ICU with monitoring there overnight. 2. Dyspnea-worse after blood transfusion in setting of fluid overload. Lasix given postop in icu with close monitoring overnight. Lynn in place with strict I/Os. 3. L knee septic arthritis-in setting of RA, s/p L knee arthroscopic irrigation and debridement done by Dr. Marin. Synovial fluid positive for Micrococcus species. Cont abx as above per ID. Cont PT/OT. Cont pain control efforts; well-managed at this time. 4. Acute blood loss anemia s/p operation. Required 1 unit of blood intraoperatively today. H/H in am. 5. CAD-no anginal symptoms, cont medical management with ASA and Lopressor. Statin on hold in setting of Daptomycin use. 6. Chronic atrial fibrillation-cont metoprolol for rate control. Anticoagulation discontinued by Cardiology due to epistaxis and unsteady gait. Continue aspirin and metoprolol. 7. s/p bioprosthetic aortic valve. 8. HTN-controlled, continue metoprolol and losartan with hold parameters 9. CKD III- Baseline creatinine 1.6. Creatinine on admission 1.9. Currently is 2.0. Diuretics were initially held to improve renal function, however, patient is volume overloaded so will cont with Lasix now. 11. 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 Hgb A1C 7.0 on , Lantus/ISS per inpatient glycemic pharmacist recs. 12. HLP- Hold simvastatin due to therapy with daptomycin. 13. RA: Hold methotrexate pending resolution of cellulitis. DVT prophy: Heparin used intraoperatively, however, holding until cleared by surgery Code Status: changed to Full Code in perioperative setting. DISPOSITION- ICU Family Medicine follow-up with Dr. Narvaez. Cardiology follow-up with Dr. Luis Stewart. Rheumatology follow-up with Dr. Bahena. Nephrology follow-up with Dr. Luo. Jennifer Zuluaga DO [facility] Hospitalist Consultants: ID Orthopedic Surgery Vascular Surgery . Procedures: cardiac monitoring IV meds venous duplex left lower extremity arterial duplex left lower extremity arthrocentesis left knee arthroscopic irrigation and debridement left knee by Dr. Marin 08/23/16 . Current Inpatient Medications: Current Inpatient Medications Medications (Trade) Dose Ordered Sig/Rosemarie Route Start Time Stop Time Status Last Admin Dose Admin Acetaminophen (Tylenol Tab) 650 mg Q4H PRN PO 08/20/16 16:00 09/19/16 15:59 08/30/16 15:27 650 MG Aspirin (Ecotrin Tab) 81 mg QAM PO 08/21/16 09:00 09/20/16 08:59 08/31/16 07:36 81 MG Folic Acid (Folvite Tab) 1 mg QAM PO 08/21/16 09:00 09/20/16 08:59 08/31/16 07:34 1 MG Metoprolol Tartrate (Lopressor Tab) 25 mg BID PO 08/20/16 21:00 09/19/16 20:59 08/31/16 07:37 25 MG Multivitamins (Multivitamin Tab) 1 tab DAILY PO 08/21/16 09:00 09/20/16 08:59 08/31/16 07:35 1 TAB Potassium Chloride (Klor-Con M10) 10 meq DAILY PO 08/21/16 09:00 09/20/16 08:59 08/31/16 07:34 10 MEQ Glucose (Glucose 40% Gel) 15-30 GRAMS 15 GRAMS... UD PRN PO 08/20/16 21:00 09/19/16 20:59 Glucose (Glucose Chew Tab) 4-8 Tablets 4 Tabl... UD PRN PO 08/20/16 21:00 09/19/16 20:59 Dextrose (Dextrose 50% 50ML Syringe) 25-50ML OF 50% DW IV FOR... UD PRN IV 08/20/16 21:00 09/19/16 20:59 Glucagon (Glucagon Inj) 1 mg UD PRN SQ 08/20/16 21:00 09/19/16 20:59 Piperacillin Sod/ Tazobactam Sod 3.375 gm/Dextrose 115 ml @ 28.75 mls/ hr Q8H IV 08/21/16 06:00 10/02/16 05:59 08/31/16 17:00 28.75 MLS/HR Piperacillin Sod/ Tazobactam Sod (Consult) 1 ea UD PRN N/A 08/21/16 01:00 09/20/16 00:59 Oxycodone HCl (Roxicodone Immediate Rel Tab) 5 mg Q6H PRN PO 08/22/16 00:00 09/05/16 00:00 08/23/16 21:47 5 MG Insulin Glargine (Lantus Solostar Pen) 20 unit HS SC 08/22/16 21:00 09/21/16 20:59 08/30/16 21:01 20 UNIT Daptomycin (Consult) 1 ea UD PRN N/A 08/23/16 12:30 09/22/16 12:29 Heparin Sodium (Porcine) (Heparin Sq 5000 Unit/0.5ml) 5,000 unit Q12 SQ 08/24/16 09:00 09/20/16 08:59 Future Hold 08/30/16 21:04 5,000 UNIT Ondansetron HCl (Zofran Inj) 4 mg Q6H PRN IV 08/23/16 22:30 09/22/16 22:29 08/24/16 06:41 4 MG Daptomycin 500 mg/ Sodium Chloride 60 ml @ 100 mls/hr Q24H IV 08/30/16 09:00 10/06/16 08:59 08/31/16 08:38 100 MLS/HR Polyethylene (Miralax Powder Packet) 17 gm HS PO 08/29/16 21:00 09/28/16 20:59 08/30/16 21:15 17 GM Acetylcysteine (Acetylcysteine Cap) 600 mg BID@0600,1800 PO 08/30/16 18:00 09/01/16 06:01 08/31/16 18:21 600 MG Miscellaneous Information (Consult Glycemic Management Pharmacy) 1 ea UD N/A 08/30/16 16:13 09/29/16 16:12 Albuterol/ Ipratropium (Combivent Respimat Inh) 1 puffs QID INH 08/31/16 13:00 09/30/16 12:59 08/31/16 16:35 1 PUFFS Morphine Sulfate (MoRPHine SULFATE INJ) If PO analgesic is orde... Q2H PRN IV 08/31/16 13:45 09/14/16 13:44 Morphine Sulfate (MoRPHine SULFATE INJ) If PO analgesic is orde... Q2H PRN IV 08/31/16 14:00 09/14/16 13:59 Insulin Aspart (novoLOG ASPART) SLIDING SCALE G... ACHS SC 08/31/16 16:00 09/30/16 00:00 08/31/16 17:11 8 UNITS Senna/Docusate Sodium (Senokot S Tab) 1 tab QAM PO 09/01/16 09:00 10/01/16 08:59 Bisacodyl (Dulcolax Supp) 10 mg DAILY PRN MI 08/31/16 16:15 09/30/16 16:14
[2016-09-01] VITALS (12 sets, daily range): BP systolic 93–132; BP diastolic 47–72; PULSE 60–106; TEMP 36.4–38.2; O2SAT 94–100
[2016-09-01] MEDS: PIPERACILL/TAZOBAC IV 3.375 GM in DEXTROSE 5% 100ML IV SCH ×3 (05:34→21:43)
[2016-09-01 05:54] LABS: HEMATOCRIT 25.7 % (42-52); MEAN CELL VOLUME 90.2 fL (80-100); MEAN CORPUSCULAR HEMOGLOBIN 28.1 pg (25-34); MEAN CORPUSCULAR HGB CONC 31.1 g/dl (32-36); MEAN PLATELET VOLUME 9.3 fL (7.4-10.4); PLATELET COUNT 217 K/uL (130-400); RED BLOOD COUNT 2.85 M/uL (4.7-6.1)
[2016-09-01] MEDS: ACETYLCYSTEINE 600 MG CAP PO SCH (06:15)
[2016-09-01 06:39] LABS: BUN/CREATININE RATIO 11.5 (10-20); CALCIUM 7.9 mg/dl (8.5-10.1); CREATININE 2.2 mg/dl (0.60-1.40); POTASSIUM 4.1 mmol/L (3.5-5.1)
[2016-09-01 06:45] LABS: BASO % 0.2 %; BASO ABS # 0.03 K/uL (0-0.2); COMPLETE YES; EOS % 1.3 %; IG% 0.2 %; LYMPH % 6.5 %; LYMPH ABS # 0.84 K/uL (1.2-3.4); MONO % 11.5 %; NEUT % 80.3 %
[2016-09-01] MEDS: IPRATROPIUM BROMIDE/ALBUTEROL respimat INH INH SCH ×4 (07:37→20:35)
[2016-09-01] MEDS: ASPIRIN 81 MG ECTAB PO SCH (07:38)
[2016-09-01] MEDS: POTASSIUM CHLORIDE 10 MEQ TABCR PO SCH (07:38)
[2016-09-01] MEDS: METOPROLOL TARTRATE 25 MG TAB PO SCH ×2 (07:39→20:35)
[2016-09-01] MEDS: MULTIVITAMIN TAB PO SCH (07:39)
[2016-09-01] MEDS: DOCUSATE SODIUM/SENNA 50/8.6MG TAB PO SCH (07:41)
[2016-09-01] MEDS: DAPTOmycin IV 500 MG in SODIUM CHLORIDE 0.9% 50ML 50 ML IV SCH (07:42)
[2016-09-01] MEDS: INSULIN ASPART 100 UNITS/ML 3 ML PEN SC SCH ×4 (07:43→21:46)
--- NOTE | 2016-09-01 07:45 | DIAGNOSTIC IMAGING REPORT ---
CHEST ONE VIEW PORTABLE HISTORY: pulmonary edema F/U COMPARISON: Chest 08/31/2016. FINDINGS: No pneumothorax. The heart is borderline enlarged. Postoperative changes and a cardiac valve prosthesis. Suspect trace bilateral pleural effusions. Bilateral airspace opacities have slightly improved. IMPRESSION: Slight improvement in the bilateral airspace opacities which may represent pulmonary edema or a pneumonia. Electronically signed by: He Gomez M.D. 09/01/2016 7:44 AM Dictated Date/Time: 09/01/2016 7:43 AM
[2016-09-01] MEDS ORDERED: BUMETANIDE IV 1 MG in SYRINGE 0 ML IV ONE (08:00)
--- NOTE | 2016-09-01 08:05 | Anesthesiology Progress Note ---
Anesthesia Post Op Note Date & Time Sep 01, 2016 at 08:04 Vital Signs Pain Intensity: 0.0 Vital Signs Past 12 Hours Date Time Temp Pulse Resp B/P (MAP) Pulse Ox O2 Delivery O2 Flow Rate FiO2 09/01/16 06:00 86 23 107/55 (72) 97 Nasal Cannula 95.0 09/01/16 04:00 98 Nasal Cannula 2.0 09/01/16 04:00 37.2 84 22 93/51 (65) 97 Nasal Cannula 2.0 09/01/16 02:00 77 22 101/62 (75) 99 Nasal Cannula 2.0 09/01/16 00:00 98 Nasal Cannula 2.0 09/01/16 00:00 37.0 77 21 99/47 (64) 98 Nasal Cannula 2.0 08/31/16 22:00 37.2 99 23 103/64 (77) 97 Nasal Cannula 3.0 Notes Mental Status: alert / awake / arousable, participated in evaluation Pt Amnestic to Procedure: Yes Nausea / Vomiting: adequately controlled Pain: adequately controlled Airway Patency, RR, SpO2: stable & adequate BP & HR: stable & adequate Hydration State: stable & adequate Anesthetic Complications: no major complications apparent
--- NOTE | 2016-09-01 09:03 | Orthopedic Progress Note ---
Orthopedic Progress Note Date of Service Sep 01, 2016. Subjective Post OP Day: s/p I&D, left knee arthroscopy on 08/23/[address] Marin Reports: feeling well, Denies: complaints, chest pain, calf pain Additional Notes: no pain with palpation left knee; sutures retained, incision clean, dry, intact. No active drainage. No ROM attempted left knee today due to left femoral artery endarterectomy yesterday. Distal edema present. Small effusion left knee; no erythema/ecchymosis. Mild warmth to left knee. Objective Date Time Temp Pulse Resp B/P (MAP) Pulse Ox O2 Delivery O2 Flow Rate FiO2 09/01/16 06:00 86 23 107/55 (72) 97 Nasal Cannula 95.0 09/01/16 04:00 98 Nasal Cannula 2.0 09/01/16 04:00 37.2 84 22 93/51 (65) 97 Nasal Cannula 2.0 09/01/16 02:00 77 22 101/62 (75) 99 Nasal Cannula 2.0 09/01/16 00:00 98 Nasal Cannula 2.0 09/01/16 00:00 37.0 77 21 99/47 (64) 98 Nasal Cannula 2.0 08/31/16 22:00 37.2 99 23 103/64 (77) 97 Nasal Cannula 3.0 08/31/16 20:00 37.4 93 23 111/76 (88) 96 Nasal Cannula 3.0 08/31/16 20:00 96 Nasal Cannula 3.0 08/31/16 18:00 37.2 101 27 127/54 (78) 98 Nasal Cannula 3.0 08/31/16 17:00 37.5 103 25 105/59 (74) 98 Nasal Cannula 3.0 08/31/16 16:00 37.4 97 28 124/56 (78) 98 Nasal Cannula 3.0 08/31/16 16:00 99 Nasal Cannula 3.0 08/31/16 15:00 37.4 91 28 105/57 (73) 94 Nasal Cannula 3.0 08/31/16 14:40 37.5 92 28 127/56 95 Nasal Cannula 3 08/31/16 14:30 90 28 121/68 97 Nasal Cannula 2 08/31/16 14:20 96 28 135/65 97 Mask 10 08/31/16 14:10 100 28 127/73 97 Mask 10 08/31/16 14:03 38.2 95 28 132/75 98 Mask 10 Laboratory Results 24 Hours: Test 08/31/16 14:24 09/01/16 05:37 White Blood Count 14.33 K/uL 12.90 K/uL Red Blood Count 2.89 M/uL 2.85 M/uL Hemoglobin 8.4 g/dL 8.0 g/dL Hematocrit 26.7 % 25.7 % Mean Corpuscular Volume 92.4 fL 90.2 fL Mean Corpuscular Hemoglobin 29.1 pg 28.1 pg Mean Corpuscular Hemoglobin Concent 31.5 g/dl 31.1 g/dl Platelet Count 221 K/uL 217 K/uL Mean Platelet Volume 9.4 fL 9.3 fL Neutrophils (%) (Auto) 85.8 % 80.3 % Lymphocytes (%) (Auto) 3.4 % 6.5 % Monocytes (%) (Auto) 8.4 % 11.5 % Eosinophils (%) (Auto) 1.8 % 1.3 % Basophils (%) (Auto) 0.2 % 0.2 % Neutrophils # (Auto) 12.28 K/uL 10.35 K/uL Lymphocytes # (Auto) 0.49 K/uL 0.84 K/uL Monocytes # (Auto) 1.21 K/uL 1.48 K/uL Eosinophils # (Auto) 0.26 K/uL 0.17 K/uL Basophils # (Auto) 0.03 K/uL 0.03 K/uL Assessment & Plan Assessment: POD 9 s/p Left knee arthroscopic irrigation and debridement. Plan: Cont IV ABX Cont PO pain medication as needed. Ok to be out of bed as tolerated with the assistance of a walker. Allowed for full ROM as tolerated left knee Ice to left knee as tolerated. Cont medical coverage. Will discuss findings with Dr. Marin. Plan for possible suture removal on Tuesday if ready. Otherwise will plan for follow up as outpatient next week if discharged. Patient aware of plan. (1) Peripheral vascular disease Chronic Discharge Planning Discharge Planning: uncertain
[2016-09-01] MEDS: HEPARIN SOD 5000 UNIT/0.5 ML CARP SQ SCH ×2 (09:37→21:47)
--- NOTE | 2016-09-01 10:54 | Clinical Documentation Query ---
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 CXR showed Congestive heart failure pattern with small bilateral pleural effusions. IVF's were DCed and IV Lasix was given. Next day attending documented fluid overload due to systolic dysfunction. An echo confirmed reduced systolic function, EF 45-50%. In your clinical opinion is this patient being managed for: ( ) Acute systolic (reduced EF) heart failure treated and resolved. ( ) Other explanation of clinical findings (Please Explain) ( ) Unable to determine (Please Define) ( ) Need to Discuss ( ) Not Agree The medical record reflects the following clinical findings, treatment, and risk factors. Clinical Indicators: As above. Treatment: As above. Risk Factors: As above. Please clarify and document your clinical opinion in the progress notes and discharge summary. Terms such as "probable", "suspected", "likely", "questionable", "possible", or "still to be ruled out" are acceptable. IF IN AGREEMENT, YOU MUST DOCUMENT ABOVE DIAGNOSTIC STATEMENT IN DAILY PROGRESS NOTES AND DISCHARGE SUMMARY. This document is not part of the patient's record. Thank You, Lit Schaeffer, LALI [phone]
[2016-09-01] MEDS ORDERED: BISACODYL 10 MG SUPP PR STA (11:02)
[2016-09-01] MEDS ORDERED: BISACODYL 10 MG SUPP PR PRN (11:15)
--- NOTE | 2016-09-01 12:52 | CRITICAL CARE PROGRESS NOTE ---
DATE: 09/01/2016 SUBJECTIVE: The patient's care was discussed in detail on multidisciplinary rounds today. There were no acute events overnight; however, postoperatively yesterday, he was tachypneic and had pulmonary edema on his chest x-ray. He responded well to Lasix, but did not have a net fluid balance, which was negative. He overall feels better and denies any pain. He was out of bed to a chair when I saw him today. This morning, he infiltrated his only peripheral IV. PHYSICAL EXAMINATION: VITAL SIGNS: Maximum temperature 38.2, heart rate 86-101, respiratory rate 23-28, blood pressure 93-127/40s-70s, oxygen saturation 97% on 2 liters nasal cannula. A 24-hour fluid balance positive, 209 mL GENERAL: On exam, he is awake, alert and hard of hearing. LUNGS: Have rales bilaterally about one-third up his lung stark. No rhonchi or wheezes. HEART: Irregularly irregular, 2/6 systolic murmur present. ABDOMEN: Limited due to his seated position. It is mildly distended, but nontender. EXTREMITIES: Show the left foot to be in a boot with trace to 1+ edema of the left leg. The left groin dressing is clean, dry and intact. Right leg has no edema. LABORATORY DATA: White blood cell count 12.9, hemoglobin 8, hematocrit 25.7, platelets 217. Sodium 137, potassium 4, chloride 102, CO2 27, BUN 25, creatinine 2.2, blood sugar 119, calcium 7.9. MEDICATIONS: Acetaminophen, Combivent, aspirin, daptomycin day 13, folic acid, subcutaneous heparin, insulin sliding scale, Lantus, Lopressor, morphine, multivitamin, Zofran, protonix, Zosyn day 13, and MiraLax, potassium, Senokot. MICROBIOLOGY DATA: Reviewed. IMAGING DATA: Portable chest x-ray from this morning was reviewed and shows slight improvement in the bilateral airspace opacities. IMPRESSION: 1. Postop day 1 status post left common femoral endarterectomy with patch. 2. Pulmonary edema and volume overload, improved. 3. Anemia, his hemoglobin continues to drift. No evidence of active bleeding. 4. Septic arthritis of the left knee secondary to micrococcus status post arthroscopic wash out on August 23, continues on daptomycin and Zosyn. 5. Left lower extremity cellulitis and gangrene of the third toe on the left foot. 6. Acute kidney injury on chronic kidney disease, creatinine has increased compared to yesterday. The renal service is following. 7. Constipation, he still has not had a bowel movement in at least 5 or 6 days. 8. Chronic atrial fibrillation. 9. Diabetes mellitus. 10. History of rheumatoid arthritis. PLAN: Neurologic: Continue acetaminophen, Roxicet or morphine for pain. He really has not used much pain medication to this point. Pulmonary: Continue incentive spirometry. I gave him Bumex 1 mg IV this morning. Follow up chest x-ray tomorrow morning. Continue bronchodilators. Goal is negative fluid balance for today. Consider further intermittent dosing of diuretics. Cardiovascular: His rate is well-controlled with metoprolol. He has not been on systemic anticoagulation. PICC line was discussed in detail with him and an order was placed. I discussed this with Dr. Nance from the renal service. Gastrointestinal: He will receive a Dulcolax suppository today. Continue to encourage diet as well as his nutritional supplements. Continue bowel regimen. Infectious disease: Continue daptomycin and Zosyn. Await further ID recommendations. Renal: Avoid nephrotoxic medications and also appropriately dose medications. Endocrine: Continue Lantus with sliding scale. Hematologic: Recheck H&H this afternoon and consider transfusion of packed red blood cells if Hb is less than 8. Continue subcutaneous heparin for DVT prophylaxis. Overall, he has done well post op. He may require further diuresis. I think he is stable for transfer back to telemetry or the floor. I will discuss this with the primary service. I discussed code status with him and he confirmed DNR code status. I have changed this order in the computer. KAYCEE
--- NOTE | 2016-09-01 13:00 | Progress Note ---
Progress Note Date of Service: Sep 01, 2016. Subjective 86 yo m with multiple medical problems, POD #1 after L comm fem endarterectomy, seen in f/u today. Pt admits mild discomfort in l groin with movement. Denies distal pain or other complaints. Problem List Medical Problems: (1) Cellulitis of left leg Status: Acute (2) Left-sided epistaxis Status: Acute Objective Vital Signs Vital Signs Past 12 Hours Date Time Temp Pulse Resp B/P (MAP) Pulse Ox O2 Delivery O2 Flow Rate FiO2 09/01/16 12:00 36.5 60 18 113/52 (72) 100 Room Air 09/01/16 12:00 96 Nasal Cannula 2.0 09/01/16 10:00 88 16 107/51 (69) 97 Nasal Cannula 2.0 09/01/16 08:00 97 Nasal Cannula 2.0 09/01/16 08:00 Nasal Cannula 09/01/16 08:00 37.0 83 24 102/50 (67) 97 Nasal Cannula 2.0 09/01/16 06:00 86 23 107/55 (72) 97 Nasal Cannula 95.0 09/01/16 04:00 98 Nasal Cannula 2.0 09/01/16 04:00 37.2 84 22 93/51 (65) 97 Nasal Cannula 2.0 09/01/16 02:00 77 22 101/62 (75) 99 Nasal Cannula 2.0 Exam CONST: A&O x4, NAD, mildly chronically ill appearing male EXT: L groin incision C/D/i with javier. + local tenderness and edema. Nonpalpable distal pulses, but + doppler DP.Foot warm and pink. Toe gangrene. Heel wounds BL Laboratory and Microbiology Results Past 24 Hours Test 08/31/16 14:15 08/31/16 14:24 08/31/16 16:31 08/31/16 19:56 Range/Units Bedside Glucose 187 194 222 70-99 mg/dl White Blood Count 14.33 4.8-10.8 K/uL Red Blood Count 2.89 4.7-6.1 M/uL Hemoglobin 8.4 14.0-18.0 g/dL Hematocrit 26.7 42-52 % Mean Corpuscular Volume 92.4 80-100 fL Mean Corpuscular Hemoglobin 29.1 25-34 pg Mean Corpuscular Hemoglobin Concent 31.5 32-36 g/dl Platelet Count 221 130-400 K/uL Mean Platelet Volume 9.4 7.4-10.4 fL Neutrophils (%) (Auto) 85.8 % Lymphocytes (%) (Auto) 3.4 % Monocytes (%) (Auto) 8.4 % Eosinophils (%) (Auto) 1.8 % Basophils (%) (Auto) 0.2 % Neutrophils # (Auto) 12.28 1.4-6.5 K/uL Lymphocytes # (Auto) 0.49 1.2-3.4 K/uL Monocytes # (Auto) 1.21 0.11-0.59 K/uL Eosinophils # (Auto) 0.26 0-0.5 K/uL Basophils # (Auto) 0.03 0-0.2 K/uL RDW Standard Deviation 58.5 36.4-46.3 fL RDW Coefficient of Variation 17.4 11.5-14.5 % Immature Granulocyte % (Auto) 0.4 % Immature Granulocyte # (Auto) 0.06 0.00-0.02 K/uL Polychromasia 1+ Sodium Level 139 136-145 mmol/L Potassium Level 4.4 3.5-5.1 mmol/L Chloride Level 106 98-107 mmol/L Carbon Dioxide Level 24 21-32 mmol/L Anion Gap 9.0 3-11 mmol/L Blood Urea Nitrogen 22 7-18 mg/dl Creatinine 1.90 0.60-1.40 mg/dl Est Creatinine Clear Calc Drug Dose 27.7 ml/min Estimated GFR () 35.7 Estimated GFR (Non- 30.8 BUN/Creatinine Ratio 11.7 10-20 Random Glucose 170 70-99 mg/dl Calcium Level 8.1 8.5-10.1 mg/dl Test 09/01/16 05:37 09/01/16 06:49 Range/Units White Blood Count 12.90 4.8-10.8 K/uL Red Blood Count 2.85 4.7-6.1 M/uL Hemoglobin 8.0 14.0-18.0 g/dL Hematocrit 25.7 42-52 % Mean Corpuscular Volume 90.2 80-100 fL Mean Corpuscular Hemoglobin 28.1 25-34 pg Mean Corpuscular Hemoglobin Concent 31.1 32-36 g/dl Platelet Count 217 130-400 K/uL Mean Platelet Volume 9.3 7.4-10.4 fL Neutrophils (%) (Auto) 80.3 % Lymphocytes (%) (Auto) 6.5 % Monocytes (%) (Auto) 11.5 % Eosinophils (%) (Auto) 1.3 % Basophils (%) (Auto) 0.2 % Neutrophils # (Auto) 10.35 1.4-6.5 K/uL Lymphocytes # (Auto) 0.84 1.2-3.4 K/uL Monocytes # (Auto) 1.48 0.11-0.59 K/uL Eosinophils # (Auto) 0.17 0-0.5 K/uL Basophils # (Auto) 0.03 0-0.2 K/uL RDW Standard Deviation 58.7 36.4-46.3 fL RDW Coefficient of Variation 17.6 11.5-14.5 % Immature Granulocyte % (Auto) 0.2 % Immature Granulocyte # (Auto) 0.03 0.00-0.02 K/uL Red Blood Cell Morphology Unremarkable Sodium Level 137 136-145 mmol/L Potassium Level 4.1 3.5-5.1 mmol/L Chloride Level 102 98-107 mmol/L Carbon Dioxide Level 27 21-32 mmol/L Anion Gap 8.0 3-11 mmol/L Blood Urea Nitrogen 25 7-18 mg/dl Creatinine 2.20 0.60-1.40 mg/dl Est Creatinine Clear Calc Drug Dose 24.0 ml/min Estimated GFR () 29.9 Estimated GFR (Non- 25.8 BUN/Creatinine Ratio 11.5 10-20 Random Glucose 119 70-99 mg/dl Calcium Level 7.9 8.5-10.1 mg/dl Magnesium Level 2.0 1.8-2.4 mg/dl Bedside Glucose 125 70-99 mg/dl Microbiology Results 08/31/16 MRSA DNA Surveillance Screen - Final, Complete Specimen Negative for MRSA by DNA Probe ASSESSMENT and PLAN: s/p L comm fem endarterectomy LLE severe PAD with gangrene L toe Pt doing well post op. Anemic at hgb 8.0. VSS. Ok for transfer to [facility] [place] after discussion with Ronny.
--- NOTE | 2016-09-01 13:47 | Pharmacy Progress Note ---
Glycemic: Assessment & Plan Date of Service Sep 01, 2016. Assessment & Plan The patient received 33 units of insulin yesterday (20 basal, 13 bolus) and BSGs today have been within or below goal range (119,125, 72). Will decrease Lantus dose slightly at this time, to home dose. Will also loosen carb ratio slightly, as it appears to have been fairly aggressive this morning (fasting BSG 125 --> prelunch BSG 72). * Basal insulin: Lantus 15 units SQ qHS * Correctional Insulin: Novolog Correction per scale ACHS Goal Range: Low 100 mg/dL - High 140 mg/dL Correction Factor: 20 mg/dL/unit * Prandial insulin: Per carb ratio of 1 unit per 8 grams CHO consumed Pharmacy will continue to monitor patient daily and write orders per [facility] inpatient glycemic control protocol. Thanks. * Please note that the plan above was derived based on current level of insulin resistance and hospital stress. These recommendations are appropriate for inpatient admission only. Plan of care upon discharge will need to be reassessed to avoid potential outpatient hypo/hyperglycemia.
--- NOTE | 2016-09-01 14:16 | DIAGNOSTIC IMAGING REPORT ---
CHEST ONE VIEW PORTABLE CLINICAL HISTORY: Chest x-ray for PICC catheter placement. Bone edema. COMPARISON STUDY: 09/01/2016 FINDINGS: There has been interval placement of a right-sided PICC catheter. The tip projects over the expected location of the atriocaval junction. The heart remains enlarged. There are bilateral pulmonary airspace opacities with a perihilar distribution. This favors pulmonary edema. There is minor blunting of the lateral costophrenic angles[ IMPRESSION: 1. Persistent cardiomegaly and bilateral pulmonary airspace opacities 2. Interval placement of a right-sided PICC catheter. The tip projects over the expected location of the atriocaval junction Electronically signed by: Michoacano Christopher M.D. 09/01/2016 2:15 PM Dictated Date/Time: 09/01/2016 2:14 PM
[2016-09-01 14:35] LABS: HEMATOCRIT 25.8 % (42-52)
[2016-09-01 14:53] LABS: BUN/CREATININE RATIO 12.5 (10-20); CALCIUM 8.1 mg/dl (8.5-10.1); CREATININE 2.2 mg/dl (0.60-1.40); POTASSIUM 4.1 mmol/L (3.5-5.1)
[2016-09-01] MEDS ORDERED: FUROSEMIDE INJ 60 MG in SYRINGE 0 ML IV ONE (15:30)
[2016-09-01] MEDS: ACETAMINOPHEN 325 MG TAB PO PRN (20:17)
[2016-09-01] MEDS: POLYETHYLENE (MIRALAX) 17 GM PACK PO SCH (20:35)
--- NOTE | 2016-09-01 20:42 | Nephrology Progress Note ---
Nephrology Progress Note Date of Service: Aug 31, 2016. Subjective note created in error Objective Date Time Temp Pulse Resp B/P (MAP) Pulse Ox O2 Delivery O2 Flow Rate FiO2 08/31/16 07:45 Room Air 08/31/16 07:35 70 121/57 (78) 08/30/16 23:25 Room Air 08/30/16 23:17 36.9 87 18 106/62 (77) 97 Room Air 08/30/16 19:09 85 16 98 Room Air 08/30/16 16:58 37.6 08/30/16 16:48 37.5 101 20 112/54 (73) 96 Room Air 08/30/16 15:35 Room Air 08/30/16 14:56 37.7 97 20 136/63 (87) 96 Room Air 08/30/16 14:15 94 14 99 Room Air 08/30/16 11:10 82 14 99 Room Air 08/30/16 10:28 99 144/57 (86) 08/30/16 09:05 94 126/52 (76) Current Inpatient Medications Medications (Trade) Dose Ordered Sig/Rosemarie Route Start Time Stop Time Status Last Admin Dose Admin Acetaminophen (Tylenol Tab) 650 mg Q4H PRN PO 08/20/16 16:00 09/19/16 15:59 08/30/16 15:27 650 MG Aspirin (Ecotrin Tab) 81 mg QAM PO 08/21/16 09:00 09/20/16 08:59 08/31/16 07:36 81 MG Folic Acid (Folvite Tab) 1 mg QAM PO 08/21/16 09:00 09/20/16 08:59 08/31/16 07:34 1 MG Metoprolol Tartrate (Lopressor Tab) 25 mg BID PO 08/20/16 21:00 09/19/16 20:59 08/31/16 07:37 25 MG Multivitamins (Multivitamin Tab) 1 tab DAILY PO 08/21/16 09:00 09/20/16 08:59 08/31/16 07:35 1 TAB Potassium Chloride (Klor-Con M10) 10 meq DAILY PO 08/21/16 09:00 09/20/16 08:59 08/31/16 07:34 10 MEQ Glucose (Glucose 40% Gel) 15-30 GRAMS 15 GRAMS... UD PRN PO 08/20/16 21:00 09/19/16 20:59 Glucose (Glucose Chew Tab) 4-8 Tablets 4 Tabl... UD PRN PO 08/20/16 21:00 09/19/16 20:59 Dextrose (Dextrose 50% 50ML Syringe) 25-50ML OF 50% DW IV FOR... UD PRN IV 08/20/16 21:00 09/19/16 20:59 Glucagon (Glucagon Inj) 1 mg UD PRN SQ 08/20/16 21:00 09/19/16 20:59 Piperacillin Sod/ Tazobactam Sod 3.375 gm/Dextrose 115 ml @ 28.75 mls/ hr Q8H IV 08/21/16 06:00 10/02/16 05:59 08/31/16 05:32 28.75 MLS/HR Piperacillin Sod/ Tazobactam Sod (Consult) 1 ea UD PRN N/A 08/21/16 01:00 09/20/16 00:59 Hydromorphone HCl (Dilaudid Inj) 0.5 mg Q3H PRN IV 08/22/16 00:00 09/05/16 00:00 08/24/16 00:01 0.5 MG Oxycodone HCl (Roxicodone Immediate Rel Tab) 5 mg Q6H PRN PO 08/22/16 00:00 09/05/16 00:00 08/23/16 21:47 5 MG Insulin Glargine (Lantus Solostar Pen) 20 unit HS SC 08/22/16 21:00 09/21/16 20:59 08/30/16 21:01 20 UNIT Daptomycin (Consult) 1 ea UD PRN N/A 08/23/16 12:30 09/22/16 12:29 Senna (Senokot Tab) 17.2 mg HS PO 08/23/16 21:00 09/22/16 20:59 08/30/16 21:15 17.2 MG Docusate Sodium (coLACE CAP) 100 mg BID PO 08/23/16 21:00 09/22/16 20:59 08/31/16 07:36 100 MG Heparin Sodium (Porcine) (Heparin Sq 5000 Unit/0.5ml) 5,000 unit Q12 SQ 08/24/16 09:00 09/20/16 08:59 Future Hold 08/30/16 21:04 5,000 UNIT Ondansetron HCl (Zofran Inj) 4 mg Q6H PRN IV 08/23/16 22:30 09/22/16 22:29 08/24/16 06:41 4 MG Daptomycin 500 mg/ Sodium Chloride 60 ml @ 100 mls/hr Q24H IV 08/30/16 09:00 10/06/16 08:59 08/30/16 10:21 100 MLS/HR Polyethylene (Miralax Powder Packet) 17 gm HS PO 08/29/16 21:00 09/28/16 20:59 08/30/16 21:15 17 GM Sodium Chloride 1,000 ml @ 82 mls/hr [id number] IV 08/31/16 07:00 09/30/16 06:59 08/31/16 07:08 82 MLS/HR Sodium Bicarbonate 100 meq/Sterile Water 1,100 ml @ 80 mls/hr [id number] IV 08/31/16 07:00 09/30/16 06:59 Acetylcysteine (Acetylcysteine Cap) 600 mg BID@0600,1800 PO 08/30/16 18:00 09/01/16 06:01 08/31/16 05:32 600 MG Cefazolin Sodium 60 ml @ 120 mls/hr PREOP IV 08/31/16 06:00 08/31/16 16:00 Miscellaneous Information (Consult Glycemic Management Pharmacy) 1 ea UD N/A 08/30/16 16:13 09/29/16 16:12 Insulin Aspart (novoLOG ASPART) SLIDING SCALE G... Q6 SC 08/31/16 00:00 09/30/16 00:00 08/31/16 00:11 4 UNITS Albuterol/ Ipratropium (Combivent Respimat Inh) 1 puffs QID INH 08/31/16 13:00 09/30/16 12:59 Last 24 Hours Test 08/30/16 11:56 08/30/16 16:30 08/30/16 16:55 08/30/16 20:31 Bedside Glucose 198 mg/dl 182 mg/dl 235 mg/dl Hemoglobin 8.3 g/dL Hematocrit 25.8 % Test 08/30/16 23:57 6/13/17 06:10 08/31/16 06:11 Bedside Glucose 211 mg/dl 130 mg/dl White Blood Count 10.34 K/uL Red Blood Count 2.84 M/uL Hemoglobin 8.6 g/dL Hematocrit 26.3 % Mean Corpuscular Volume 92.6 fL Mean Corpuscular Hemoglobin 30.3 pg Mean Corpuscular Hemoglobin Concent 32.7 g/dl Platelet Count 218 K/uL Mean Platelet Volume 9.9 fL Neutrophils (%) (Auto) 78.5 % Lymphocytes (%) (Auto) 6.2 % Monocytes (%) (Auto) 10.6 % Eosinophils (%) (Auto) 4.1 % Basophils (%) (Auto) 0.3 % Neutrophils # (Auto) 8.12 K/uL Lymphocytes # (Auto) 0.64 K/uL Monocytes # (Auto) 1.10 K/uL Eosinophils # (Auto) 0.42 K/uL Basophils # (Auto) 0.03 K/uL RDW Standard Deviation 57.6 fL RDW Coefficient of Variation 17.1 % Immature Granulocyte % (Auto) 0.3 % Immature Granulocyte # (Auto) 0.03 K/uL Red Blood Cell Morphology Unremarkable Sodium Level 140 mmol/L Potassium Level 3.7 mmol/L Chloride Level 104 mmol/L Carbon Dioxide Level 24 mmol/L Anion Gap 12.0 mmol/L Blood Urea Nitrogen 25 mg/dl Creatinine 2.00 mg/dl Est Creatinine Clear Calc Drug Dose 26.4 ml/min Estimated GFR () 33.5 Estimated GFR (Non- 28.9 BUN/Creatinine Ratio 12.5 Random Glucose 109 mg/dl Calcium Level 8.1 mg/dl Magnesium Level 2.0 mg/dl Total Creatine Kinase 138 U/L Assessment & Plan note created; pt not seen.
--- NOTE | 2016-09-01 20:45 | Nephrology Progress Note ---
Nephrology Progress Note Date of Service: Sep 01, 2016. Subjective c/o cold ambient temp; not dyspneic, pain controlled; had tachypnea and pulm edema post op and moved to icu after L common femoral endarterectomy yesterday; got pRBC; got bumex one dose Objective Date Time Temp Pulse Resp B/P (MAP) Pulse Ox O2 Delivery O2 Flow Rate FiO2 09/01/16 19:49 38.2 106 22 132/56 (81) 95 Nasal Cannula 1.5 09/01/16 16:00 Nasal Cannula 2.0 09/01/16 15:37 37.1 97 20 125/62 (83) 98 Nasal Cannula 1.5 09/01/16 14:25 37.1 92 18 132/72 (92) 100 Nasal Cannula 2.0 09/01/16 14:00 92 16 105/54 (71) 94 Nasal Cannula 2.0 09/01/16 12:00 36.5 60 18 113/52 (72) 100 Room Air 09/01/16 12:00 96 Nasal Cannula 2.0 09/01/16 10:00 88 16 107/51 (69) 97 Nasal Cannula 2.0 09/01/16 08:00 97 Nasal Cannula 2.0 09/01/16 08:00 Nasal Cannula 09/01/16 08:00 37.0 83 24 102/50 (67) 97 Nasal Cannula 2.0 09/01/16 06:00 86 23 107/55 (72) 97 Nasal Cannula 95.0 09/01/16 04:00 98 Nasal Cannula 2.0 09/01/16 04:00 37.2 84 22 93/51 (65) 97 Nasal Cannula 2.0 09/01/16 02:00 77 22 101/62 (75) 99 Nasal Cannula 2.0 09/01/16 00:00 98 Nasal Cannula 2.0 09/01/16 00:00 37.0 77 21 99/47 (64) 98 Nasal Cannula 2.0 08/31/16 22:00 37.2 99 23 103/64 (77) 97 Nasal Cannula 3.0 Physical Exam: GENERAL: Awake, alert and oriented x3. Hard of hearing. up in chair on 02 NC EYES: No scleral icterus. ENT: Moist mucous membranes. NECK: Supple. PULMONARY: Clear to auscultation but very diminished bs CARDIAC: Irregularly irregular in 80s ABDOMEN: Bowel sounds positive, soft and nontender. matos w/ small amount of urine EXTREMITIES: Left knee drain removed; 2+ LLE edema w/ L boot. NEUROLOGICAL: mena, fluent speech Current Inpatient Medications Medications (Trade) Dose Ordered Sig/Rosemarie Route Start Time Stop Time Status Last Admin Dose Admin Acetaminophen (Tylenol Tab) 650 mg Q4H PRN PO 08/20/16 16:00 09/19/16 15:59 09/01/16 20:17 650 MG Aspirin (Ecotrin Tab) 81 mg QAM PO 08/21/16 09:00 09/20/16 08:59 09/01/16 07:38 81 MG Folic Acid (Folvite Tab) 1 mg QAM PO 08/21/16 09:00 09/20/16 08:59 09/01/16 07:38 1 MG Metoprolol Tartrate (Lopressor Tab) 25 mg BID PO 08/20/16 21:00 09/19/16 20:59 09/01/16 07:39 25 MG Multivitamins (Multivitamin Tab) 1 tab DAILY PO 08/21/16 09:00 09/20/16 08:59 09/01/16 07:39 1 TAB Potassium Chloride (Klor-Con M10) 10 meq DAILY PO 08/21/16 09:00 09/20/16 08:59 09/01/16 07:38 10 MEQ Glucose (Glucose 40% Gel) 15-30 GRAMS 15 GRAMS... UD PRN PO 08/20/16 21:00 09/19/16 20:59 Glucose (Glucose Chew Tab) 4-8 Tablets 4 Tabl... UD PRN PO 08/20/16 21:00 09/19/16 20:59 Dextrose (Dextrose 50% 50ML Syringe) 25-50ML OF 50% DW IV FOR... UD PRN IV 08/20/16 21:00 09/19/16 20:59 Glucagon (Glucagon Inj) 1 mg UD PRN SQ 08/20/16 21:00 09/19/16 20:59 Piperacillin Sod/ Tazobactam Sod 3.375 gm/Dextrose 115 ml @ 28.75 mls/ hr Q8H IV 08/21/16 06:00 10/02/16 05:59 09/01/16 14:30 28.75 MLS/HR Piperacillin Sod/ Tazobactam Sod (Consult) 1 UD PRN N/A 08/21/16 01:00 09/20/16 00:59 Oxycodone HCl (Roxicodone Immediate Rel Tab) 5 mg Q6H PRN PO 08/22/16 00:00 09/05/16 00:00 08/23/16 21:47 5 MG Daptomycin (Consult) 1 UD PRN N/A 08/23/16 12:30 09/22/16 12:29 Heparin Sodium (Porcine) (Heparin Sq 5000 Unit/0.5ml) 5,000 unit Q12 SQ 08/24/16 09:00 09/20/16 08:59 Future hold 09/01/16 09:37 5,000 UNIT Ondansetron HCl (Zofran Inj) 4 mg Q6H PRN IV 08/23/16 22:30 09/22/16 22:29 08/24/16 06:41 4 MG Polyethylene (Miralax Powder Packet) 17 gm HS PO 08/29/16 21:00 09/28/16 20:59 08/31/16 20:52 17 GM Miscellaneous Information (Consult Glycemic Management Pharmacy) 1 [facility] N/A 08/30/16 16:13 09/29/16 16:12 Albuterol/ Ipratropium (Combivent Respimat Inh) 1 puffs QID INH 08/31/16 13:00 09/30/16 12:59 09/01/16 16:54 1 PUFFS Morphine Sulfate (MoRPHine SULFATE INJ) If PO analgesic is orde... Q2H PRN IV 08/31/16 13:45 09/14/16 13:44 Morphine Sulfate (MoRPHine SULFATE INJ) If PO analgesic is orde... Q2H PRN IV 08/31/16 14:00 09/14/16 13:59 Insulin Aspart (novoLOG ASPART) SLIDING SCALE G... ACHS SC 08/31/16 16:00 09/30/16 00:00 09/01/16 16:54 5 UNITS Senna/Docusate Sodium (Senokot S Tab) 1 tab QAM PO 09/01/16 09:00 10/01/16 08:59 09/01/16 07:41 1 TAB Bisacodyl (Dulcolax Supp) 10 mg DAILY PRN [place] 08/31/16 16:15 09/30/16 16:14 09/01/16 09:36 10 MG Daptomycin 500 mg/ Sodium Chloride 60 ml @ 100 mls/hr Q48H IV 09/03/16 09:00 10/06/16 08:59 Insulin Glargine (Lantus Solostar Pen) 15 unit HS SC 09/01/16 21:00 10/01/16 20:59 Last 24 Hours Test 09/01/16 05:37 09/01/16 06:49 09/01/16 11:04 09/01/16 14:29 White Blood Count 12.90 K/uL Red Blood Count 2.85 M/uL Hemoglobin 8.0 g/dL 8.3 g/dL Hematocrit 25.7 % 25.8 % Mean Corpuscular Volume 90.2 fL Mean Corpuscular Hemoglobin 28.1 pg Mean Corpuscular Hemoglobin Concent 31.1 g/dl Platelet Count 217 K/uL Mean Platelet Volume 9.3 fL Neutrophils (%) (Auto) 80.3 % Lymphocytes (%) (Auto) 6.5 % Monocytes (%) (Auto) 11.5 % Eosinophils (%) (Auto) 1.3 % Basophils (%) (Auto) 0.2 % Neutrophils # (Auto) 10.35 K/uL Lymphocytes # (Auto) 0.84 K/uL Monocytes # (Auto) 1.48 K/uL Eosinophils # (Auto) 0.17 K/uL Basophils # (Auto) 0.03 K/uL RDW Standard Deviation 58.7 fL RDW Coefficient of Variation 17.6 % Immature Granulocyte % (Auto) 0.2 % Immature Granulocyte # (Auto) 0.03 K/uL Red Blood Cell Morphology Unremarkable Sodium Level 137 mmol/L 137 mmol/L Potassium Level 4.1 mmol/L 4.1 mmol/L Chloride Level 102 mmol/L 100 mmol/L Carbon Dioxide Level 27 mmol/L 25 mmol/L Anion Gap 8.0 mmol/L 12.0 mmol/L Blood Urea Nitrogen 25 mg/dl 28 mg/dl Creatinine 2.20 mg/dl 2.20 mg/dl Est Creatinine Clear Calc Drug Dose 24.0 ml/min 26.2 ml/min Estimated GFR () 29.9 29.9 Estimated GFR (Non- 25.8 25.8 BUN/Creatinine Ratio 11.5 12.5 Random Glucose 119 mg/dl 148 mg/dl Calcium Level 7.9 mg/dl 8.1 mg/dl Magnesium Level 2.0 mg/dl Bedside Glucose 125 mg/dl 72 mg/dl Test 09/01/16 16:04 09/01/16 20:03 Bedside Glucose 174 mg/dl 253 mg/dl Assessment & Plan 86-year-old male, with a history of A-Fib, no longer on anticoagulation and w/ bioprosthetic aortic valve as well as CKD stage 3 with baseline creatinine around 1.6 and w/ severe PAD admitted 08/20 w/ L knee septic arthritis and L toe gangrene. Had presenting creatinine 1.9; peaked at 2.4 on 08/23; trended down to 1.6 on 08/29, now back up to 2.0. Not particularly hypertensive; got pRBC in OR yesterday; also had AF w/ RVR Acute kidney injury on chronic kidney disease stage 3 with baseline creatinine of 1.6; non oliguric ATN in the setting of inflammation from infection and of abtx -held ARB and diuretic starting 09/01 to prevent creatinine from worsening further -daily bmp -cont strict I/O -getting PICC today -cont to hold ivf and iiuretics prn only for now Appreciate consult; will follow with you. Care coordinated w/ Dr Gross.
--- NOTE | 2016-09-01 20:55 | Progress Note ---
Medicine Progress Note Date & Time of Visit: Sep 01, 2016 at 17:38. 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 Objective Last 8 Hrs Date Time Temp Pulse Resp B/P (MAP) Pulse Ox O2 Delivery O2 Flow Rate FiO2 09/01/16 15:37 37.1 97 20 125/62 (83) 98 Nasal Cannula 1.5 09/01/16 14:25 37.1 92 18 132/72 (92) 100 Nasal Cannula 2.0 09/01/16 14:00 92 16 105/54 (71) 94 Nasal Cannula 2.0 09/01/16 12:00 36.5 60 18 113/52 (72) 100 Room Air 09/01/16 12:00 96 Nasal Cannula 2.0 09/01/16 10:00 88 16 107/51 (69) 97 Nasal Cannula 2.0 Physical Exam: GEN: WNWD, in no acute distress, alert and appropriate, patient has supplemental oxygen in place HEENT: NC/AT, normal sclerae, MMM CARDIO: irreg rhythm, reg rate, S1/2 heard without m/g/r, 2+ pitting edema on LLE LUNGS: CTA bilaterally, crackles at bases bilaterally, rales or wheezes, good diaphragmatic excursion ABD: soft, non-tender, non-distended, no rebound or guarding, +BS EXTREMITY: warm and well perfused, Dry dressing is in place and is c/d/i. Erythema dust distal to 3rd toe on L foot improved today NEURO: CN 2-12 grossly intact, some sensation loss in feet bilaterally, no gross focal deficits. MUSC: moves all extremities equally. Can wiggle L toes. SKIN: warm and dry, pale Laboratory Results: 09/01/16 05:37 Red Blood Count 2.85, Mean Corpuscular Volume 90.2, Mean Corpuscular Hemoglobin 28.1, Mean Corpuscular Hemoglobin Concent 31.1, Mean Platelet Volume 9.3, Neutrophils (%) (Auto) 80.3, Lymphocytes (%) (Auto) 6.5, Monocytes (%) (Auto) 11.5, Eosinophils (%) (Auto) 1.3, Basophils (%) (Auto) 0.2, Neutrophils # (Auto ) 10.35, Lymphocytes # (Auto) 0.84, Monocytes # (Auto) 1.48, Eosinophils # (Auto ) 0.17, Basophils # (Auto) 0.03 09/01/16 14:29 09/01/16 14:29 Test 08/20/16 14:40 08/20/16 16:21 08/20/16 21:30 08/23/16 11:10 Erythrocyte Sedimentation Rate 50 mm/hr (0-14) Prothrombin Time 12.4 SECONDS (9.0-12.0) Prothromb Time International Ratio 1.2 (0.9-1.1) Activated Partial Thromboplast Time 27.5 SECONDS (21.0-31.0) Partial Thromboplastin Ratio 1.1 Total Bilirubin 1.2 mg/dl (0.2-1) Aspartate Amino Transf (AST/SGOT) 21 U/L (15-37) Alanine Aminotransferase (ALT/SGPT) 22 U/L (12-78) Alkaline Phosphatase 67 U/L (45-117) C-Reactive Protein 7.48 mg/dl (0-0.29) Total Protein 8.7 gm/dl (6.4-8.2) Albumin 2.8 gm/dl (3.4-5.0) Globulin 5.9 gm/dl (2.5-4.0) Albumin/Globulin Ratio 0.5 (0.9-2) Chemistry Specimen Hemolysis Lactic Acid Level 1.2 mmol/L (0.4-2.0) Urine Color YELLOW Urine Appearance CLEAR (CLEAR) Urine pH 5.0 (4.5-7.5) Urine Specific Manson 1.016 (1.000-1.030) Urine Protein 1+ (NEG) Urine Glucose (UA) NEG (NEG) Urine Ketones NEG (NEG) Urine Occult Blood NEG (NEG) Urine Nitrite NEG (NEG) Urine Bilirubin NEG (NEG) Urine Urobilinogen NEG (NEG) Urine Leukocyte Esterase NEG (NEG) Urine WBC (Auto) 1-5 /hpf (0-5) Urine RBC (Auto) 0-4 /hpf (0-4) Urine Hyaline Casts (Auto) 1-5 /lpf (0-5) Urine Epithelial Cells (Auto) >30 /lpf (0-5) Urine Bacteria (Auto) NEG (NEG) Urine Renal Epithelial Cells 0-5 /lpf (0-5) Synovial Fluid Source KNEE Synovial Fluid Color DEBRA Synovial Fluid Appearance CLOUDY Synovial Fluid WBC 79738 /uL (0-200) Synovial Fluid RBC 50224 /uL Synovial Fluid Polynuclear WBCs % 95.4 % Synovial Fluid Mononuclear WBCs % 4.6 % Synovial Fluid Crystals Test 08/29/16 06:20 08/31/16 06:10 08/31/16 14:24 09/01/16 05:37 Pro-B-Type Natriuretic Peptide 68678 pg/ml (0-1800) Total Creatine Kinase 138 U/L (39-308) Polychromasia 1+ White Blood Count 12.90 K/uL (4.8-10.8) Red Blood Count 2.85 M/uL (4.7-6.1) Hemoglobin 8.0 g/dL (14.0-18.0) Hematocrit 25.7 % (42-52) Mean Corpuscular Volume 90.2 fL (80-100) Mean Corpuscular Hemoglobin 28.1 pg (25-34) Mean Corpuscular Hemoglobin Concent 31.1 g/dl (32-36) Platelet Count 217 K/uL (130-400) Mean Platelet Volume 9.3 fL (7.4-10.4) Neutrophils (%) (Auto) 80.3 % Lymphocytes (%) (Auto) 6.5 % Monocytes (%) (Auto) 11.5 % Eosinophils (%) (Auto) 1.3 % Basophils (%) (Auto) 0.2 % Neutrophils # (Auto) 10.35 K/uL (1.4-6.5) Lymphocytes # (Auto) 0.84 K/uL (1.2-3.4) Monocytes # (Auto) 1.48 K/uL (0.11-0.59) Eosinophils # (Auto) 0.17 K/uL (0-0.5) Basophils # (Auto) 0.03 K/uL (0-0.2) RDW Standard Deviation 58.7 fL (36.4-46.3) RDW Coefficient of Variation 17.6 % (11.5-14.5) Immature Granulocyte % (Auto) 0.2 % Immature Granulocyte # (Auto) 0.03 K/uL (0.00-0.02) Red Blood Cell Morphology Unremarkable Magnesium Level 2.0 mg/dl (1.8-2.4) Test 09/01/16 14:29 09/01/16 20:03 Anion Gap 12.0 mmol/L (3-11) Est Creatinine Clear Calc Drug Dose 26.2 ml/min Estimated GFR () 29.9 Estimated GFR (Non- 25.8 BUN/Creatinine Ratio 12.5 (10-20) Calcium Level 8.1 mg/dl (8.5-10.1) Bedside Glucose 253 mg/dl (70-99) Date/Time Source Procedure Growth Status 08/20/16 16:21 Blood Blood Culture - Final NO GROWTH Complete 08/23/16 19:10 Joint Fluid/Space (Synovial) Knee Left Gram Stain - Final Complete 08/23/16 19:10 Bacterial Culture - Final Micrococcus Species Complete 08/31/16 15:00 Nasal MRSA DNA Surveillance Screen - Final Specimen Negative for MRSA by DNA Probe Complete Last 24 Hours Test 08/31/16 19:56 09/01/16 05:37 09/01/16 06:49 09/01/16 11:04 Bedside Glucose 222 mg/dl 125 mg/dl 72 mg/dl White Blood Count 12.90 K/uL Red Blood Count 2.85 M/uL Hemoglobin 8.0 g/dL Hematocrit 25.7 % Mean Corpuscular Volume 90.2 fL Mean Corpuscular Hemoglobin 28.1 pg Mean Corpuscular Hemoglobin Concent 31.1 g/dl Platelet Count 217 K/uL Mean Platelet Volume 9.3 fL Neutrophils (%) (Auto) 80.3 % Lymphocytes (%) (Auto) 6.5 % Monocytes (%) (Auto) 11.5 % Eosinophils (%) (Auto) 1.3 % Basophils (%) (Auto) 0.2 % Neutrophils # (Auto) 10.35 K/uL Lymphocytes # (Auto) 0.84 K/uL Monocytes # (Auto) 1.48 K/uL Eosinophils # (Auto) 0.17 K/uL Basophils # (Auto) 0.03 K/uL RDW Standard Deviation 58.7 fL RDW Coefficient of Variation 17.6 % Immature Granulocyte % (Auto) 0.2 % Immature Granulocyte # (Auto) 0.03 K/uL Red Blood Cell Morphology Unremarkable Sodium Level 137 mmol/L Potassium Level 4.1 mmol/L Chloride Level 102 mmol/L Carbon Dioxide Level 27 mmol/L Anion Gap 8.0 mmol/L Blood Urea Nitrogen 25 mg/dl Creatinine 2.20 mg/dl Est Creatinine Clear Calc Drug Dose 24.0 ml/min Estimated GFR () 29.9 Estimated GFR (Non- 25.8 BUN/Creatinine Ratio 11.5 Random Glucose 119 mg/dl Calcium Level 7.9 mg/dl Magnesium Level 2.0 mg/dl Test 09/01/16 14:29 09/01/16 16:04 Hemoglobin 8.3 g/dL Hematocrit 25.8 % Sodium Level 137 mmol/L Potassium Level 4.1 mmol/L Chloride Level 100 mmol/L Carbon Dioxide Level 25 mmol/L Anion Gap 12.0 mmol/L Blood Urea Nitrogen 28 mg/dl Creatinine 2.20 mg/dl Est Creatinine Clear Calc Drug Dose 26.2 ml/min Estimated GFR () 29.9 Estimated GFR (Non- 25.8 BUN/Creatinine Ratio 12.5 Random Glucose 148 mg/dl Calcium Level 8.1 mg/dl Bedside Glucose 174 mg/dl Diagnostic Imaging: CHEST ONE VIEW PORTABLE CLINICAL HISTORY: Chest x-ray for PICC catheter placement. Bone edema. COMPARISON STUDY: 09/01/2016 FINDINGS: There has been interval placement of a right-sided PICC catheter. The tip projects over the expected location of the atriocaval junction. The heart remains enlarged. There are bilateral pulmonary airspace opacities with a perihilar distribution. This favors pulmonary edema. There is minor blunting of the lateral costophrenic angles[ IMPRESSION: 1. Persistent cardiomegaly and bilateral pulmonary airspace opacities 2. Interval placement of a right-sided PICC catheter. The tip projects over the expected location of the atriocaval junction Electronically signed by: Alvina Moreno Assessment & Plan 86 yo M with severe PAD p/w 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 1. L foot gangrene- no osteo on xray, BCx no growth to date, IV Vanc and ceftriaxone initially started, then changed to Dapto and Zosyn. ID following and recommends to cont this therapy for now. A small amount of erythema persists on dorsal side of foot but appears somewhat improved. Of note, patient is a diabetic with significant diabetic neuropathy. 08/31: pt underwent endarterectomy of left leg today, tolerating procedure well. No pain post-op and recovering in ICU with monitoring there overnight. 09/01: POD #1, no pain, tolerating PO, doing well, incision sites healing well, transferred out of ICU to telemetry. PICC placed today for better vascular access. LLE edema is present with improvement in redness on dorsum of foot distal to infected toe. L knee without signs of erythema or effusion and still on IV abx. Awaiting narrowing of spectrum per ID when ready. 2. Dyspnea 2/2 volume overload. Improved somewhat but he is still requiring oxygen supplementation. Bumex and Lasix given today with persistent high output of 1.5L-2L daily. PRN dosing is being used at this point so as to not tip his kidneys back into failure. His creatinine is somewhat up at 2.2. Will repeat Lasix dosing PRN in order to improve hypoxia. Cont Lynn for accurate I/ Os. 3. L knee septic arthritis-in setting of RA, s/p L knee arthroscopic irrigation and debridement done by Dr. Marin. Synovial fluid positive for Micrococcus species. Cont abx as above per ID and await further recs. Cont PT/ OT. Cont pain control efforts; well-managed at this time. 4. Acute blood loss anemia s/p operation. Required 2 units of blood total this hospitalization. Cont to monitor PRN, minimize phlebotomy. 5. CAD-no anginal symptoms, cont medical management with ASA and Lopressor. Statin on hold in setting of Daptomycin use. 6. Chronic atrial fibrillation-cont metoprolol for rate control. Anticoagulation discontinued by Cardiology due to epistaxis and unsteady gait. Continue aspirin and metoprolol. 7. s/p bioprosthetic aortic valve. 8. HTN-controlled, continue metoprolol and losartan with hold parameters 9. CKD III- Baseline creatinine 1.6. Creatinine on admission 1.9. Currently is 2.0. Diuretics were initially held to improve renal function, however, patient is volume overloaded so will cont with Lasix now. 11. 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 Hgb A1C 7.0 on , Lantus/ISS per inpatient glycemic pharmacist recs. 12. HLP- Hold simvastatin due to therapy with daptomycin. 13. RA: Hold methotrexate pending resolution of cellulitis. DVT prophy: Heparin Code Status:DNR DISPOSITION- telemetry Family Medicine follow-up with Dr. Narvaez. Cardiology follow-up with Dr. Luis Stewart. Rheumatology follow-up with Dr. Bahena. Nephrology follow-up with Dr. Luo. Jennifer Zuluaga DO [facility] Hospitalist Consultants: ID Orthopedic Surgery Vascular Surgery . Procedures: cardiac monitoring IV meds venous duplex left lower extremity arterial duplex left lower extremity arthrocentesis left knee arthroscopic irrigation and debridement left knee by Dr. Marin 08/23/16 . Current Inpatient Medications: Current Inpatient Medications Medications (Trade) Dose Ordered Sig/Rosemarie Route Start Time Stop Time Status Last Admin Dose Admin Acetaminophen (Tylenol Tab) 650 mg Q4H PRN PO 08/20/16 16:00 09/19/16 15:59 08/30/16 15:27 650 MG Aspirin (Ecotrin Tab) 81 mg QAM PO 08/21/16 09:00 09/20/16 08:59 09/01/16 07:38 81 MG Folic Acid (Folvite Tab) 1 mg QAM PO 08/21/16 09:00 09/20/16 08:59 09/01/16 07:38 1 MG Metoprolol Tartrate (Lopressor Tab) 25 mg BID PO 08/20/16 21:00 09/19/16 20:59 09/01/16 07:39 25 MG Multivitamins (Multivitamin Tab) 1 tab DAILY PO 08/21/16 09:00 09/20/16 08:59 09/01/16 07:39 1 TAB Potassium Chloride (Klor-Con M10) 10 meq DAILY PO 08/21/16 09:00 09/20/16 08:59 09/01/16 07:38 10 MEQ Glucose (Glucose 40% Gel) 15-30 GRAMS 15 GRAMS... UD PRN PO 08/20/16 21:00 09/19/16 20:59 Glucose (Glucose Chew Tab) 4-8 Tablets 4 Tabl... UD PRN PO 08/20/16 21:00 09/19/16 20:59 Dextrose (Dextrose 50% 50ML Syringe) 25-50ML OF 50% DW IV FOR... UD PRN IV 08/20/16 21:00 09/19/16 20:59 Glucagon (Glucagon Inj) 1 mg UD PRN SQ 08/20/16 21:00 09/19/16 20:59 Piperacillin Sod/ Tazobactam Sod 3.375 gm/Dextrose 115 ml @ 28.75 mls/ hr Q8H IV 08/21/16 06:00 10/02/16 05:59 09/01/16 14:30 28.75 MLS/HR Piperacillin Sod/ Tazobactam Sod (Consult) 1 UD PRN N/A 08/21/16 01:00 09/20/16 00:59 Oxycodone HCl (Roxicodone Immediate Rel Tab) 5 mg Q6H PRN PO 08/22/16 00:00 09/05/16 00:00 08/23/16 21:47 5 MG Daptomycin (Consult) 1 ea UD PRN N/A 08/23/16 12:30 09/22/16 12:29 Heparin Sodium (Porcine) (Heparin Sq 5000 Unit/0.5ml) 5,000 unit Q12 SQ 08/24/16 09:00 09/20/16 08:59 Future hold 09/01/16 09:37 5,000 UNIT Ondansetron HCl (Zofran Inj) 4 mg Q6H PRN IV 08/23/16 22:30 09/22/16 22:29 08/24/16 06:41 4 MG Polyethylene (Miralax Powder Packet) 17 gm HS PO 08/29/16 21:00 09/28/16 20:59 08/31/16 20:52 17 GM Miscellaneous Information (Consult Glycemic Management Pharmacy) 1 UD N/A 08/30/16 16:13 09/29/16 16:12 Albuterol/ Ipratropium (Combivent Respimat Inh) 1 puffs QID INH 08/31/16 13:00 09/30/16 12:59 09/01/16 16:54 1 PUFFS Morphine Sulfate (MoRPHine SULFATE INJ) If PO analgesic is orde... Q2H PRN IV 08/31/16 13:45 09/14/16 13:44 Morphine Sulfate (MoRPHine SULFATE INJ) If PO analgesic is orde... Q2H PRN IV 08/31/16 14:00 09/14/16 13:59 Insulin Aspart (novoLOG ASPART) SLIDING SCALE G... ACHS SC 08/31/16 16:00 09/30/16 00:00 09/01/16 16:54 5 UNITS Senna/Docusate Sodium (Senokot S Tab) 1 tab QAM PO 09/01/16 09:00 10/01/16 08:59 09/01/16 07:41 1 TAB Bisacodyl (Dulcolax Supp) 10 mg DAILY PRN MO 08/31/16 16:15 09/30/16 16:14 09/01/16 09:36 10 MG Daptomycin 500 mg/ Sodium Chloride 60 ml @ 100 mls/hr Q48H IV 09/03/16 09:00 10/06/16 08:59 Insulin Glargine (Lantus Solostar Pen) 15 unit HS SC 09/01/16 21:00 10/01/16 20:59
[2016-09-01] MEDS: INSULIN GLARGINE SOLOSTAR 100 UNITS/ML 3 ML PEN SC SCH (21:47)
[2016-09-02] VITALS (8 sets, daily range): BP systolic 96–125; BP diastolic 43–66; PULSE 68–103; TEMP 36.4–37; O2SAT 93–99
[2016-09-02] MEDS: PIPERACILL/TAZOBAC IV 3.375 GM in DEXTROSE 5% 100ML IV SCH (06:00)
[2016-09-02 06:04] LABS: BASO % 0.3 %; BASO ABS # 0.04 K/uL (0-0.2); EOS % 1.9 %; HEMATOCRIT 24.6 % (42-52); IG% 0.3 %; LYMPH % 5.6 %; LYMPH ABS # 0.78 K/uL (1.2-3.4); MEAN CELL VOLUME 89.1 fL (80-100); MEAN CORPUSCULAR HEMOGLOBIN 27.9 pg (25-34); MEAN CORPUSCULAR HGB CONC 31.3 g/dl (32-36); MEAN PLATELET VOLUME 9.4 fL (7.4-10.4); MONO % 10.8 %; NEUT % 81.1 %; PLATELET COUNT 219 K/uL (130-400); RED BLOOD COUNT 2.76 M/uL (4.7-6.1); WHITE BLOOD COUNT 13.89 K/uL (4.8-10.8)
[2016-09-02 06:33] LABS: COMPLETE YES
[2016-09-02 06:49] LABS: BUN/CREATININE RATIO 13.9 (10-20); CREATININE 2.3 mg/dl (0.60-1.40); POTASSIUM 3.4 mmol/L (3.5-5.1)
--- NOTE | 2016-09-02 07:14 | DIAGNOSTIC IMAGING REPORT ---
RIGHT UPPER EXTREMITY VENOUS DOPPLER HISTORY: Right arm swelling. COMPARISON STUDY: None. FINDINGS: The right internal jugular vein is patent. There is normal flow within the right subclavian vein. There is normal flow and compressibility within the right axillary, brachial, radial, ulnar, and visualized cephalic veins. A right PICC is noted. Small amount of nonocclusive thrombus within the right basilic vein near the PICC insertion. IMPRESSION: A small amount of nonocclusive thrombus within the right basilic vein near the PICC insertion. Electronically signed by: He Gomez M.D. 09/02/2016 7:13 AM Dictated Date/Time: 09/02/2016 7:11 AM
[2016-09-02] MEDS: INSULIN ASPART 100 UNITS/ML 3 ML PEN SC SCH ×4 (08:17→20:34)
[2016-09-02] MEDS: HEPARIN SOD 5000 UNIT/0.5 ML CARP SQ SCH ×2 (08:17→20:46)
[2016-09-02] MEDS: MULTIVITAMIN TAB PO SCH (08:18)
[2016-09-02] MEDS: POTASSIUM CHLORIDE 10 MEQ TABCR PO SCH (08:18)
[2016-09-02] MEDS: IPRATROPIUM BROMIDE/ALBUTEROL respimat INH INH SCH ×4 (08:18→20:36)
[2016-09-02] MEDS: DOCUSATE SODIUM/SENNA 50/8.6MG TAB PO SCH (08:19)
[2016-09-02] MEDS: METOPROLOL TARTRATE 25 MG TAB PO SCH ×2 (08:19→20:36)
[2016-09-02] MEDS: ASPIRIN 81 MG ECTAB PO SCH (08:19)
--- NOTE | 2016-09-02 08:19 | DIAGNOSTIC IMAGING REPORT ---
CHEST ONE VIEW PORTABLE CLINICAL HISTORY: Pulmonary edema COMPARISON STUDY: 09/01/2016 FINDINGS: The heart remains mildly enlarged. There are postsurgical changes of a midline sternotomy. There is been no interval change the position of the right-sided PICC catheter. There is persistent but improving interstitial edema. There is been minimal improvement in the bilateral perihilar airspace opacities, likely representing edema.[ There are trace bilateral pleural effusions IMPRESSION: Slowly improving interstitial edema and bilateral perihilar airspace opacities Electronically signed by: Michoacano Christopher M.D. 09/02/2016 8:18 AM Dictated Date/Time: 09/02/2016 8:16 AM
--- NOTE | 2016-09-02 08:51 | Orthopedic Progress Note ---
Orthopedic Progress Note Date of Service Sep 02, 2016. Subjective Reports: feeling well, pain controlled w PO medications, Denies: complaints, chest pain, SOB, nausea / vomiting, light headedness, calf pain, using AIR ANALYST Objective calves soft nontender, N/V intact, dressing C/D/I, incision C/D/I, A&O x3, toes mobile, CMS intact Patient is able to extend Lt knee to 0 degrees and easily flex to 90. Able to perform straight leg raise without difficulty. Minimal effusion over anterior left knee. No tenderness, erythema, ecchymosis or warmth. Incision sites healing well. Cap refill diff to assess to onychomycosis. Unable to feel dorsalis pedis pulse but post tibial pulse is faintly appreciated. No pain with dorsi/plantar flexion of foot actively or passively with resistance. NV intact in Left LE. Date Time Temp Pulse Resp B/P (MAP) Pulse Ox O2 Delivery O2 Flow Rate FiO2 09/02/16 07:47 36.5 103 16 115/66 (82) 98 Nasal Cannula 2.0 09/02/16 04:22 37.0 89 18 106/57 (73) 99 2.0 09/02/16 04:00 Nasal Cannula 2.0 09/02/16 00:27 36.5 90 20 125/57 (79) 99 2.0 09/02/16 00:01 Nasal Cannula 2.0 09/01/16 22:09 36.4 09/01/16 20:00 Nasal Cannula 2.0 09/01/16 19:49 38.2 106 22 132/56 (81) 95 Nasal Cannula 1.5 09/01/16 16:00 Nasal Cannula 2.0 09/01/16 15:37 37.1 97 20 125/62 (83) 98 Nasal Cannula 1.5 09/01/16 14:25 37.1 92 18 132/72 (92) 100 Nasal Cannula 2.0 09/01/16 14:00 92 16 105/54 (71) 94 Nasal Cannula 2.0 09/01/16 12:00 36.5 60 18 113/52 (72) 100 Room Air 09/01/16 12:00 96 Nasal Cannula 2.0 09/01/16 10:00 88 16 107/51 (69) 97 Nasal Cannula 2.0 Laboratory Results 24 Hours: Test 09/01/16 14:29 09/02/16 05:56 Hematocrit 25.8 % 24.6 % Hemoglobin 8.3 g/dL 7.7 g/dL White Blood Count 13.89 K/uL Red Blood Count 2.76 M/uL Mean Corpuscular Volume 89.1 fL Mean Corpuscular Hemoglobin 27.9 pg Mean Corpuscular Hemoglobin Concent 31.3 g/dl Platelet Count 219 K/uL Mean Platelet Volume 9.4 fL Neutrophils (%) (Auto) 81.1 % Lymphocytes (%) (Auto) 5.6 % Monocytes (%) (Auto) 10.8 % Eosinophils (%) (Auto) 1.9 % Basophils (%) (Auto) 0.3 % Neutrophils # (Auto) 11.27 K/uL Lymphocytes # (Auto) 0.78 K/uL Monocytes # (Auto) 1.50 K/uL Eosinophils # (Auto) 0.26 K/uL Basophils # (Auto) 0.04 K/uL Assessment & Plan Assessment: POD 10 s/p Left knee arthroscopic irrigation and debridement. Plan: Cont IV ABX Cont PO pain medication as needed. Ok to be out of bed as tolerated with the assistance of a walker. Allowed for full ROM as tolerated left knee Ice to left knee as tolerated. Cont medical coverage. Will discuss findings with Dr. Marin. Plan for possible suture removal on Tuesday if ready. Otherwise will plan for follow up as outpatient next week if discharged. Patient aware of plan. (1) Peripheral vascular disease Chronic Discharge Planning Discharge Planning: uncertain
[2016-09-02] MEDS ORDERED: POTASSIUM CHLORIDE 20 MEQ TABCR PO ONE (09:15)
[2016-09-02] MEDS: ERTAPENEM IV 500 MG in SODIUM CHLORIDE 0.9% 50ML 50 ML IV SCH (11:32)
--- NOTE | 2016-09-02 13:47 | Pharmacy Progress Note ---
Glycemic Control: Progress Nt Date of Service Sep 02, 2016. Scope Glycemic Pharmacist consulted by Dr Zuluaga on 08/30/2016 for glycemic control and to write orders per [facility] inpatient glycemic control protocol. Objective Accuchecks BSG (last 24hrs): Test 09/01/16 14:29 09/01/16 16:04 09/01/16 20:03 09/02/16 05:56 Random Glucose 148 mg/dl (70-99) 107 mg/dl (70-99) Bedside Glucose 174 mg/dl (70-99) 253 mg/dl (70-99) Test 09/02/16 06:56 09/02/16 11:07 Bedside Glucose 123 mg/dl (70-99) 160 mg/dl (70-99) Laboratory Data (last 24hrs) Test 09/01/16 14:29 09/02/16 05:56 Anion Gap 12.0 mmol/L 9.0 mmol/L BUN/Creatinine Ratio 12.5 13.9 Blood Urea Nitrogen 28 mg/dl 32 mg/dl Creatinine 2.20 mg/dl 2.30 mg/dl Potassium Level 4.1 mmol/L 3.4 mmol/L Sodium Level 137 mmol/L 136 mmol/L White Blood Count 13.89 K/uL Red Blood Count 2.76 M/uL Hemoglobin 7.7 g/dL Hematocrit 24.6 % Mean Corpuscular Volume 89.1 fL Mean Corpuscular Hemoglobin 27.9 pg Mean Corpuscular Hemoglobin Concent 31.3 g/dl Platelet Count 219 K/uL Mean Platelet Volume 9.4 fL Neutrophils (%) (Auto) 81.1 % Lymphocytes (%) (Auto) 5.6 % Monocytes (%) (Auto) 10.8 % Eosinophils (%) (Auto) 1.9 % Basophils (%) (Auto) 0.3 % Neutrophils # (Auto) 11.27 K/uL Lymphocytes # (Auto) 0.78 K/uL Monocytes # (Auto) 1.50 K/uL Eosinophils # (Auto) 0.26 K/uL Basophils # (Auto) 0.04 K/uL Recent Pertinent Medications Outpatient Anti-diabetic Regimen: * Lantus 15 units qPM + Regular insulin 15 units with breakfast, 12 units with lunch, and 20 units with dinner * A1c = 7.0 % 06/30/16 The patient is currently receiving: * Basal insulin: Lantus 15 units every 24 hours at bedtime * Correctional Insulin: Novolog Correction per scale ACHS Goal Range: Low 100 mg/dL - High 140 mg/dL Correction Factor: 20 mg/dL/unit * Prandial insulin: Per carb ratio of 1 unit per 8 grams CHO consumed Risk Factors for Insulin Resistance: * Infection:cellulitis vs diabetic foot infection on daptomycin/Invanz0 * Recent Surgery: POD 2 of endarectomy with patch angioplasty * Diet: type 2 diabetic diet Assessment & Plan ASSESSMENT: * ADA & AACE recommend a goal blood sugar range 140-180 mg/dl for the majority of critically ill & non-critically ill patients. However, more stringent targets may be selected in individual cases. Will utilize more stringent goal of 100-140mg/dl based on patient age & comorbidities. Additionally, tighter glycemic control is warranted to facilitate wound/infection healing. * Mr Flores is an 86 y/o M admitted 08/29/2016 for a diabetic foot infection. He has a PMH of severe PAD, septic arthritis, and a gangrenous toe. He was initially started with Lantus 20 units qHS and a moderately tight correctional insulin. He has required around 40-45 units of insulin per day while hospitalized. * Yesterday, Mr Flores's blood sugars ranged from 72-253 mg/dL. He received 37 units yesterday. Today his fasting was 123 mg/dL. This increased slightly at lunch. The patient did receive a large amount of carbohydrates at lunch resulting in a dose of 19 units of Novolog. I suspect that his dinner blood sugar will be lower. * Today, I tightened Mr Flores's carbohydrate ratio because it appeared that throughout the day his blood sugar climbs. Since his outpatient regimen concentrates on carbohydrate coverage I decided to tighten the carbohydrate ratio. PLAN FOR INPATIENT GLYCEMIC CONTROL: * Continuing Lantus 15 units SQ Daily * Continuing correction factor of 20 mg/dl/unit * TIGHTENING carb ratio to 1 unit per 7 grams CHO consumed * Continuing goal range Low 100 mg/dL - High 140 mg/dL RECOMMENDATIONS FOR DISCHARGE: * Mr Puckett A1C appears to be adequately controlled for his age therefore it is reasonable to continue his home dose of insulin once discharged. * Please note that the plan above was derived based on current level of insulin resistance and hospital stress. These recommendations are appropriate for inpatient admission only. Plan of care upon discharge will need to be reassessed to avoid potential outpatient hypo/hyperglycemia. Thank you.
--- NOTE | 2016-09-02 15:24 | Progress Note ---
Progress Note Date of Service: Sep 02, 2016. Subjective No complaints of leg pain Problem List Medical Problems: (1) Cellulitis of left leg Status: Acute (2) Left-sided epistaxis Status: Acute Objective Vital Signs Vital Signs Past 12 Hours Date Time Temp Pulse Resp B/P (MAP) Pulse Ox O2 Delivery O2 Flow Rate FiO2 09/02/16 12:15 36.8 68 16 101/52 (68) 93 Room Air 09/02/16 12:00 Room Air 09/02/16 08:00 Nasal Cannula 2.0 09/02/16 07:47 36.5 103 16 115/66 (82) 98 Nasal Cannula 2.0 09/02/16 04:22 37.0 89 18 106/57 (73) 99 2.0 09/02/16 04:00 Nasal Cannula 2.0 Exam VSS Afebrile Groin incision dry and clean Good peroneal doppler signal at ankle level. Intake & Output 8-Hour Column 09/02/16 09/03/16 09/03/16 16:00 00:00 08:00 Intake Total 890 ml Output Total 550 ml Balance 340 ml 24-Hour Column 09/03/16 08:00 Intake Total 890 ml Output Total 550 ml Balance 340 ml Laboratory and Microbiology Results Past 24 Hours Test 09/01/16 16:04 09/01/16 20:03 09/02/16 05:56 09/02/16 06:56 Range/Units Bedside Glucose 174 253 123 70-99 mg/dl White Blood Count 13.89 4.8-10.8 K/uL Red Blood Count 2.76 4.7-6.1 M/uL Hemoglobin 7.7 14.0-18.0 g/dL Hematocrit 24.6 42-52 % Mean Corpuscular Volume 89.1 80-100 fL Mean Corpuscular Hemoglobin 27.9 25-34 pg Mean Corpuscular Hemoglobin Concent 31.3 32-36 g/dl Platelet Count 219 130-400 K/uL Mean Platelet Volume 9.4 7.4-10.4 fL Neutrophils (%) (Auto) 81.1 % Lymphocytes (%) (Auto) 5.6 % Monocytes (%) (Auto) 10.8 % Eosinophils (%) (Auto) 1.9 % Basophils (%) (Auto) 0.3 % Neutrophils # (Auto) 11.27 1.4-6.5 K/uL Lymphocytes # (Auto) 0.78 1.2-3.4 K/uL Monocytes # (Auto) 1.50 0.11-0.59 K/uL Eosinophils # (Auto) 0.26 0-0.5 K/uL Basophils # (Auto) 0.04 0-0.2 K/uL RDW Standard Deviation 56.3 36.4-46.3 fL RDW Coefficient of Variation 17.4 11.5-14.5 % Immature Granulocyte % (Auto) 0.3 % Immature Granulocyte # (Auto) 0.04 0.00-0.02 K/uL Red Blood Cell Morphology Unremarkable Sodium Level 136 136-145 mmol/L Potassium Level 3.4 3.5-5.1 mmol/L Chloride Level 100 98-107 mmol/L Carbon Dioxide Level 27 21-32 mmol/L Anion Gap 9.0 3-11 mmol/L Blood Urea Nitrogen 32 7-18 mg/dl Creatinine 2.30 0.60-1.40 mg/dl Est Creatinine Clear Calc Drug Dose 25.1 ml/min Estimated GFR () 28.3 Estimated GFR (Non- 24.4 BUN/Creatinine Ratio 13.9 10-20 Random Glucose 107 70-99 mg/dl Calcium Level 8.0 8.5-10.1 mg/dl Test 09/02/16 11:07 Range/Units Bedside Glucose 160 70-99 mg/dl Imp: Post op left femoral endart with patch Plan: Good distal perfusion. Will let toe demarcate for now and amp as needed as an outpatient. Can go to rehab from vascular standpoint. Thank you very much for letting me participate in the care of this patient.
--- NOTE | 2016-09-02 16:35 | PROGRESS NOTE ---
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 He has recently had surgery on the left leg for vascular improvement of blood flow. The knee is doing well. He has been up ambulating in the hallway. He is afebrile today. He did have a fever yesterday and the day before. His white count is 14, but this may be due to his recent surgery. Hematocrit is 25, platelet count 219. His chemistries are noted. He is on daptomycin and ertapenem. There is a boot on his left foot. He can extend perhaps missing 5 degrees of terminal extension. He can do a leg raise. The portals are healing well. There is no erythema or tenderness about the knee. He does not have an intra-articular refusion, the knee can flex to about 110. I recommend that he continue on the intravenous antibiotics per ID. His sutures will be removed tomorrow. He can do therapy at [facility] and eventually as an outpatient. I want to follow up with him in my office in approximately 3-4 weeks, sooner if there are any problems or issues related to the knee. He may weightbear as tolerated and have range of motion as tolerated. Discharge instructions will be supplied tomorrow when the sutures are removed. Methotrexate can be resumed when ok with vascular. KAYCEE
--- NOTE | 2016-09-02 17:03 | Infectious Disease Progress Nt ---
Progress Note Date of Service Sep 02, 2016. Subjective Pt evaluation today including: conversation w/ patient, physical exam, chart review, lab review, review of studies, conversation w/ senior information security consultant, review of inpatient medication list patient developed right hand swelling, and found to have superficial basilic vein thrombosis. States the pain groin in the has improved. Remains afebrile. No other new complaints. All Other Systems: Reviewed and Negative Medications Current Inpatient Medications Medications (Trade) Dose Ordered Sig/Rosemarie Route Start Time Stop Time Status Last Admin Dose Admin Acetaminophen (Tylenol Tab) 650 mg Q4H PRN PO 08/20/16 16:00 09/19/16 15:59 09/01/16 20:17 650 MG Aspirin (Ecotrin Tab) 81 mg QAM PO 08/21/16 09:00 09/20/16 08:59 09/02/16 08:19 81 MG Folic Acid (Folvite Tab) 1 mg QAM PO 08/21/16 09:00 09/20/16 08:59 09/02/16 08:19 1 MG Metoprolol Tartrate (Lopressor Tab) 25 mg BID PO 08/20/16 21:00 09/19/16 20:59 09/02/16 08:19 25 MG Multivitamins (Multivitamin Tab) 1 tab DAILY PO 08/21/16 09:00 09/20/16 08:59 09/02/16 08:18 1 TAB Potassium Chloride (Klor-Con M10) 10 meq DAILY PO 08/21/16 09:00 09/20/16 08:59 09/02/16 08:18 10 MEQ Glucose (Glucose 40% Gel) 15-30 GRAMS 15 GRAMS... UD PRN PO 08/20/16 21:00 09/19/16 20:59 Glucose (Glucose Chew Tab) 4-8 Tablets 4 Tabl... UD PRN PO 08/20/16 21:00 09/19/16 20:59 Dextrose (Dextrose 50% 50ML Syringe) 25-50ML OF 50% DW IV FOR... UD PRN IV 08/20/16 21:00 09/19/16 20:59 Glucagon (Glucagon Inj) 1 mg UD PRN SQ 08/20/16 21:00 09/19/16 20:59 Oxycodone HCl (Roxicodone Immediate Rel Tab) 5 mg Q6H PRN PO 08/22/16 00:00 09/05/16 00:00 08/23/16 21:47 5 MG Daptomycin (Consult) 1 UD PRN N/A 08/23/16 12:30 09/22/16 12:29 Heparin Sodium (Porcine) (Heparin Sq 5000 Unit/0.5ml) 5,000 unit Q12 SQ 08/24/16 09:00 09/20/16 08:59 Future hold 09/02/16 08:17 5,000 UNIT Ondansetron HCl (Zofran Inj) 4 mg Q6H PRN IV 08/23/16 22:30 09/22/16 22:29 08/24/16 06:41 4 MG Polyethylene (Miralax Powder Packet) 17 gm HS PO 08/29/16 21:00 09/28/16 20:59 09/01/16 20:35 17 GM Miscellaneous Information (Consult Glycemic Management Pharmacy) 1 UD N/A 08/30/16 16:13 09/29/16 16:12 Albuterol/ Ipratropium (Combivent Respimat Inh) 1 puffs QID INH 08/31/16 13:00 09/30/16 12:59 09/02/16 12:57 1 PUFFS Morphine Sulfate (MoRPHine SULFATE INJ) If PO analgesic is orde... Q2H PRN IV 08/31/16 13:45 09/14/16 13:44 Morphine Sulfate (MoRPHine SULFATE INJ) If PO analgesic is orde... Q2H PRN IV 08/31/16 14:00 09/14/16 13:59 Insulin Aspart (novoLOG ASPART) SLIDING SCALE G... ACHS SC 08/31/16 16:00 09/30/16 00:00 09/02/16 11:36 19 UNITS Senna/Docusate Sodium (Senokot S Tab) 1 tab QAM PO 09/01/16 09:00 10/01/16 08:59 09/02/16 08:19 1 TAB Bisacodyl (Dulcolax Supp) 10 mg DAILY PRN HI 08/31/16 16:15 09/30/16 16:14 09/01/16 09:36 10 MG Daptomycin 500 mg/ Sodium Chloride 60 ml @ 100 mls/hr Q48H IV 09/03/16 09:00 10/06/16 08:59 Insulin Glargine (Lantus Solostar Pen) 15 unit HS SC 09/01/16 21:00 10/01/16 20:59 09/01/16 21:47 15 UNIT Ertapenem 500 mg/ Sodium Chloride 55 ml @ 110 mls/hr Q24H IV 09/02/16 11:00 10/14/16 10:59 09/02/16 11:32 110 MLS/HR Objective Vital Signs Date Time Temp Pulse Resp B/P (MAP) Pulse Ox O2 Delivery O2 Flow Rate FiO2 09/02/16 16:00 Room Air 09/02/16 15:37 36.7 84 16 96/43 (60) 97 Room Air 09/02/16 13:53 92 97 09/02/16 12:15 36.8 68 16 101/52 (68) 93 Room Air 09/02/16 12:00 Room Air 09/02/16 08:00 Nasal Cannula 2.0 09/02/16 07:47 36.5 103 16 115/66 (82) 98 Nasal Cannula 2.0 09/02/16 04:22 37.0 89 18 106/57 (73) 99 2.0 09/02/16 04:00 Nasal Cannula 2.0 09/02/16 00:27 36.5 90 20 125/57 (79) 99 2.0 09/02/16 00:01 Nasal Cannula 2.0 09/01/16 22:09 36.4 09/01/16 20:00 Nasal Cannula 2.0 09/01/16 19:49 38.2 106 22 132/56 (81) 95 Nasal Cannula 1.5 Physical Exam General Appearance: WD/WN, no apparent distress Eyes: normal inspection, sclerae normal ENT: normal ENT inspection, pharynx normal Neck: supple, no adenopathy, trachea midline Respiratory/Chest: lungs clear, normal breath sounds, no respiratory distress Cardiovascular: regular rate, rhythm, no gallop, no murmur Abdomen: normal bowel sounds, non tender, soft, no organomegaly Extremities: non-tender, no calf tenderness, + pertinent finding ( Right hand swelling) Neurologic/Psychiatric: alert, oriented x 3 Skin: normal color, no rash, + pertinent finding (gangrenous left third toe) Lymphatic: no adenopathy Laboratory Results Last 24 Hours Test 09/01/16 20:03 09/02/16 05:56 09/02/16 06:56 09/02/16 11:07 Bedside Glucose 253 mg/dl 123 mg/dl 160 mg/dl White Blood Count 13.89 K/uL Red Blood Count 2.76 M/uL Hemoglobin 7.7 g/dL Hematocrit 24.6 % Mean Corpuscular Volume 89.1 fL Mean Corpuscular Hemoglobin 27.9 pg Mean Corpuscular Hemoglobin Concent 31.3 g/dl Platelet Count 219 K/uL Mean Platelet Volume 9.4 fL Neutrophils (%) (Auto) 81.1 % Lymphocytes (%) (Auto) 5.6 % Monocytes (%) (Auto) 10.8 % Eosinophils (%) (Auto) 1.9 % Basophils (%) (Auto) 0.3 % Neutrophils # (Auto) 11.27 K/uL Lymphocytes # (Auto) 0.78 K/uL Monocytes # (Auto) 1.50 K/uL Eosinophils # (Auto) 0.26 K/uL Basophils # (Auto) 0.04 K/uL RDW Standard Deviation 56.3 fL RDW Coefficient of Variation 17.4 % Immature Granulocyte % (Auto) 0.3 % Immature Granulocyte # (Auto) 0.04 K/uL Red Blood Cell Morphology Unremarkable Sodium Level 136 mmol/L Potassium Level 3.4 mmol/L Chloride Level 100 mmol/L Carbon Dioxide Level 27 mmol/L Anion Gap 9.0 mmol/L Blood Urea Nitrogen 32 mg/dl Creatinine 2.30 mg/dl Est Creatinine Clear Calc Drug Dose 25.1 ml/min Estimated GFR () 28.3 Estimated GFR (Non- 24.4 BUN/Creatinine Ratio 13.9 Random Glucose 107 mg/dl Calcium Level 8.0 mg/dl Test 09/02/16 17:00 Assessment and Plan (1) Peripheral vascular disease Status: 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 Patient to continue on present Rx and would continue through amputation. Will follow.
--- NOTE | 2016-09-02 17:22 | Progress Note ---
Medicine Progress Note Date & Time of Visit: Sep 02, 2016 at 13:00. Subjective 86 yo M with severe PAD p/w 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 -pt is clinically improved -redness has resolved in L foot -he is sitting in bedside chair with no complaints. -tolerating PO -ambulatory with assistance Objective Last 8 Hrs Date Time Temp Pulse Resp B/P (MAP) Pulse Ox O2 Delivery O2 Flow Rate FiO2 09/02/16 16:00 Room Air 09/02/16 15:37 36.7 84 16 96/43 (60) 97 Room Air 09/02/16 13:53 92 97 09/02/16 12:15 36.8 68 16 101/52 (68) 93 Room Air 09/02/16 12:00 Room Air Physical Exam: GEN: WNWD, in no acute distress, alert and appropriate, patient has supplemental oxygen in place HEENT: NC/AT, normal sclerae, MMM CARDIO: irreg rhythm, reg rate, S1/2 heard without m/g/r, 2+ pitting edema on LLE LUNGS: CTA bilaterally, crackles at bases bilaterally, rales or wheezes, good diaphragmatic excursion ABD: soft, non-tender, non-distended, no rebound or guarding, +BS EXTREMITY: warm and well perfused, Dry dressing is in place and is c/d/i. Erythema dust distal to 3rd toe on L foot improved today NEURO: CN 2-12 grossly intact, some sensation loss in feet bilaterally, no gross focal deficits. MUSC: moves all extremities equally. Can wiggle L toes. SKIN: warm and dry, pale Laboratory Results: Last 24 Hours Test 09/01/16 20:03 09/02/16 05:56 09/02/16 06:56 09/02/16 11:07 Bedside Glucose 253 mg/dl 123 mg/dl 160 mg/dl White Blood Count 13.89 K/uL Red Blood Count 2.76 M/uL Hemoglobin 7.7 g/dL Hematocrit 24.6 % Mean Corpuscular Volume 89.1 fL Mean Corpuscular Hemoglobin 27.9 pg Mean Corpuscular Hemoglobin Concent 31.3 g/dl Platelet Count 219 K/uL Mean Platelet Volume 9.4 fL Neutrophils (%) (Auto) 81.1 % Lymphocytes (%) (Auto) 5.6 % Monocytes (%) (Auto) 10.8 % Eosinophils (%) (Auto) 1.9 % Basophils (%) (Auto) 0.3 % Neutrophils # (Auto) 11.27 K/uL Lymphocytes # (Auto) 0.78 K/uL Monocytes # (Auto) 1.50 K/uL Eosinophils # (Auto) 0.26 K/uL Basophils # (Auto) 0.04 K/uL RDW Standard Deviation 56.3 fL RDW Coefficient of Variation 17.4 % Immature Granulocyte % (Auto) 0.3 % Immature Granulocyte # (Auto) 0.04 K/uL Red Blood Cell Morphology Unremarkable Sodium Level 136 mmol/L Potassium Level 3.4 mmol/L Chloride Level 100 mmol/L Carbon Dioxide Level 27 mmol/L Anion Gap 9.0 mmol/L Blood Urea Nitrogen 32 mg/dl Creatinine 2.30 mg/dl Est Creatinine Clear Calc Drug Dose 25.1 ml/min Estimated GFR () 28.3 Estimated GFR (Non- 24.4 BUN/Creatinine Ratio 13.9 Random Glucose 107 mg/dl Calcium Level 8.0 mg/dl Test 09/02/16 17:00 Assessment & Plan 86 yo M with severe PAD p/w 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 1. PAD with L foot gangrene- no osteo on xray, BCx no growth to date, IV Vanc and ceftriaxone initially started, then changed to Dapto and Zosyn. ID following and recommends to cont this therapy for now. A small amount of erythema persists on dorsal side of foot but appears somewhat improved. Of note , patient is a diabetic with significant diabetic neuropathy. 08/31: pt underwent endarterectomy of left leg today, tolerating procedure well. No pain post-op and recovering in ICU with monitoring there overnight. 09/01: POD #1, no pain, tolerating PO, doing well, incision sites healing well, transferred out of ICU to telemetry. PICC placed today for better vascular access. LLE edema is present with improvement in redness on dorsum of foot distal to infected toe. L knee without signs of erythema or effusion and still on IV abx. Awaiting narrowing of spectrum per ID when ready. 09/02: POD#2, no pain, tolerating PO, incision sites healing well. PICC with superficial clot at insertion site-consulted Heme for definitive care recs. Pt needs PICC for outpatient abx for next 4 weeks. Min swelling and no pain or other symptoms are present as a result. ID pared abx to Dapto and Ertapenem x 4 weeks. 2. Acute on chronic diastolic heart failure-compensated, patient greatly improved today with clear lungs and no supplemental oxygen requirement. Will defer restarting Lasix on a continuous basis to Nephro. 3. L knee septic arthritis-in setting of RA, s/p L knee arthroscopic irrigation and debridement done by Dr. Marin. Synovial fluid positive for Micrococcus species. Cont abx as above per ID x 4 weeks. Cont PT/OT. Cont pain control efforts; well-managed at this time. 4. Acute blood loss anemia s/p operation. Required 2 units of blood total this hospitalization. Repeat H/H now, patient is asymptomatic. Will plan to give blood if any further decrease from this morning's value. Pt is aware of this and verbalized understanding of plan. 5. CKD III- Baseline creatinine 1.6. Creatinine on admission 1.9. Currently is 2.3. Diuretics were initially held to improve renal function, however, were recently restarted with an increase in creat as a result. Working with Nephro to optimize. 6. CAD-no anginal symptoms, cont medical management with ASA and Lopressor. Statin on hold in setting of Daptomycin use. 7. Chronic atrial fibrillation-cont metoprolol for rate control. Anticoagulation discontinued by Cardiology due to epistaxis and unsteady gait. Continue aspirin and metoprolol. 8. s/p bioprosthetic aortic valve. 9. HTN-controlled, continue metoprolol and losartan with hold parameters 10. 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 Hgb A1C 7.0 on , Lantus/ISS per inpatient glycemic pharmacist recs. 11. HLP- Hold simvastatin due to therapy with daptomycin. 12. RA: Hold methotrexate pending resolution of cellulitis. DVT prophy: Heparin Code Status:DNR DISPOSITION- telemetry Family Medicine follow-up with Dr. Narvaez. Cardiology follow-up with Dr. Luis Stewart. Rheumatology follow-up with Dr. Bahena. Nephrology follow-up with Dr. Luo. Jennifer DO Marilia Zuluaga Hospitalist Consultants: [facility]opedic Surgery Vascular Surgery . Procedures: cardiac monitoring IV meds venous duplex left lower extremity arterial duplex left lower extremity arthrocentesis left knee arthroscopic irrigation and debridement left knee by Dr. Marin 08/23/16 . Current Inpatient Medications: Current Inpatient Medications Medications (Trade) Dose Ordered Sig/Rosemarie Route Start Time Stop Time Status Last Admin Dose Admin Acetaminophen (Tylenol Tab) 650 mg Q4H PRN PO 08/20/16 16:00 09/19/16 15:59 09/01/16 20:17 650 MG Aspirin (Ecotrin Tab) 81 mg QAM PO 08/21/16 09:00 09/20/16 08:59 09/02/16 08:19 81 MG Folic Acid (Folvite Tab) 1 mg QAM PO 08/21/16 09:00 09/20/16 08:59 09/02/16 08:19 1 MG Metoprolol Tartrate (Lopressor Tab) 25 mg BID PO 08/20/16 21:00 09/19/16 20:59 09/02/16 08:19 25 MG Multivitamins (Multivitamin Tab) 1 tab DAILY PO 08/21/16 09:00 09/20/16 08:59 09/02/16 08:18 1 TAB Potassium Chloride (Klor-Con M10) 10 meq DAILY PO 08/21/16 09:00 09/20/16 08:59 09/02/16 08:18 10 MEQ Glucose (Glucose 40% Gel) 15-30 GRAMS 15 GRAMS... UD PRN PO 08/20/16 21:00 09/19/16 20:59 Glucose (Glucose Chew Tab) 4-8 Tablets 4 Tabl... UD PRN PO 08/20/16 21:00 09/19/16 20:59 Dextrose (Dextrose 50% 50ML Syringe) 25-50ML OF 50% DW IV FOR... UD PRN IV 08/20/16 21:00 09/19/16 20:59 Glucagon (Glucagon Inj) 1 mg UD PRN SQ 08/20/16 21:00 09/19/16 20:59 Oxycodone HCl (Roxicodone Immediate Rel Tab) 5 mg Q6H PRN PO 08/22/16 00:00 09/05/16 00:00 08/23/16 21:47 5 MG Daptomycin (Consult) 1 UD PRN N/A 08/23/16 12:30 09/22/16 12:29 Heparin Sodium (Porcine) (Heparin Sq 5000 Unit/0.5ml) 5,000 unit Q12 SQ 08/24/16 09:00 09/20/16 08:59 Future hold 09/02/16 08:17 5,000 UNIT Ondansetron HCl (Zofran Inj) 4 mg Q6H PRN IV 08/23/16 22:30 09/22/16 22:29 08/24/16 06:41 4 MG Polyethylene (Miralax Powder Packet) 17 gm HS PO 08/29/16 21:00 09/28/16 20:59 09/01/16 20:35 17 GM Miscellaneous Information (Consult Glycemic Management Pharmacy) 1 [facility] N/A 08/30/16 16:13 09/29/16 16:12 Albuterol/ Ipratropium (Combivent Respimat Inh) 1 puffs QID INH 08/31/16 13:00 09/30/16 12:59 09/02/16 17:03 1 PUFFS Morphine Sulfate (MoRPHine SULFATE INJ) If PO analgesic is orde... Q2H PRN IV 08/31/16 13:45 09/14/16 13:44 Morphine Sulfate (MoRPHine SULFATE INJ) If PO analgesic is orde... Q2H PRN IV 08/31/16 14:00 09/14/16 13:59 Insulin Aspart (novoLOG ASPART) SLIDING SCALE G... ACHS SC 08/31/16 16:00 09/30/16 00:00 09/02/16 17:02 4 UNITS Senna/Docusate Sodium (Senokot S Tab) 1 tab QAM PO 09/01/16 09:00 10/01/16 08:59 09/02/16 08:19 1 TAB Bisacodyl (Dulcolax Supp) 10 mg DAILY PRN MD 08/31/16 16:15 09/30/16 16:14 09/01/16 09:36 10 MG Daptomycin 500 mg/ Sodium Chloride 60 ml @ 100 mls/hr Q48H IV 09/03/16 09:00 10/06/16 08:59 Insulin Glargine (Lantus Solostar Pen) 15 unit HS SC 09/01/16 21:00 10/01/16 20:59 09/01/16 21:47 15 UNIT Ertapenem 500 mg/ Sodium Chloride 55 ml @ 110 mls/hr Q24H IV 09/02/16 11:00 10/14/16 10:59 09/02/16 11:32 110 MLS/HR
[2016-09-02 17:59] LABS: HEMATOCRIT 23.1 % (42-52)
[2016-09-02] MEDS: POLYETHYLENE (MIRALAX) 17 GM PACK PO SCH (20:36)
[2016-09-02] MEDS: INSULIN GLARGINE SOLOSTAR 100 UNITS/ML 3 ML PEN SC SCH (20:46)
--- NOTE | 2016-09-02 22:01 | Medical Consult ---
Consultation Date of Consultation: Sep 02, 2016. Attending Physician: Jennifer Zuluaga DO Reason for Consultation: right basilic vein thrombus History of Present Illness 86 year old male admitted who presented with erythema of left third toe rapidly ascending form his foot to his leg being treated for septic arthritis L knee and left toe gangrene s/p surgery He underwent surgery - now POD 2 left lower extremity femoral endarterectomy He had RUE picc line and is on IV Daptomycin and ertapenem. He developed swelling in his right hand and had a venous doppler which showed small amount of thrombus in right basilic vein at picc line insertion He denies any prior history of DVT or superficial phlebitis He has a history of chronic A fib but is on rate control and aspirin, not on anticoagulation reportedly due to epistaxis and unsteady gait. He is currently on prophylactic dose heparin Sq He feels that his right hand swelling has improved He denies any chest pain or cough or shortness of breath He denies any increased fatigue Past Medical/Surgical History PMH/PSH: HTN, chronic A fib, CAD, Aortic stensosi s/p AVR bioprosthetic,diabetes , CKD stage 3, RA, neuropathy, PVD, s/p bypass procedure RLE, toe amputation, diabetic foot ulcer, cardiac cath, cholecystectomy, CABG, cataract extraction now POD 2 endarterectomy left leg Medical Problems: (1) Cellulitis of left leg Status: Acute (2) Left-sided epistaxis Status: Acute Family History Cancer BROTHER SISTER Coronary artery disease FATHER Kidney disease BROTHER Social History Smoking Status: Former Smoker Alcohol Use: none Drug Use: none Marital Status: Occupation Status: retired Allergies Coded Allergies: Lisinopril (Unverified Allergy, Unknown, COUGHING, 08/20/16) Current Inpatient Medications Current Inpatient Medications Medications (Trade) Dose Ordered Sig/Rosemarie Route Start Time Stop Time Status Last Admin Dose Admin Acetaminophen (Tylenol Tab) 650 mg Q4H PRN PO 08/20/16 16:00 09/19/16 15:59 09/01/16 20:17 650 MG Aspirin (Ecotrin Tab) 81 mg QAM PO 08/21/16 09:00 09/20/16 08:59 09/02/16 08:19 81 MG Folic Acid (Folvite Tab) 1 mg QAM PO 08/21/16 09:00 09/20/16 08:59 09/02/16 08:19 1 MG Metoprolol Tartrate (Lopressor Tab) 25 mg BID PO 08/20/16 21:00 09/19/16 20:59 09/02/16 20:36 25 MG Multivitamins (Multivitamin Tab) 1 tab DAILY PO 08/21/16 09:00 09/20/16 08:59 09/02/16 08:18 1 TAB Potassium Chloride (Klor-Con M10) 10 meq DAILY PO 08/21/16 09:00 09/20/16 08:59 09/02/16 08:18 10 MEQ Glucose (Glucose 40% Gel) 15-30 GRAMS 15 GRAMS... UD PRN PO 08/20/16 21:00 09/19/16 20:59 Glucose (Glucose Chew Tab) 4-8 Tablets 4 Tabl... UD PRN PO 08/20/16 21:00 09/19/16 20:59 Dextrose (Dextrose 50% 50ML Syringe) 25-50ML OF 50% DW IV FOR... UD PRN IV 08/20/16 21:00 09/19/16 20:59 Glucagon (Glucagon Inj) 1 mg UD PRN SQ 08/20/16 21:00 09/19/16 20:59 Oxycodone HCl (Roxicodone Immediate Rel Tab) 5 mg Q6H PRN PO 08/22/16 00:00 09/05/16 00:00 08/23/16 21:47 5 MG Daptomycin (Consult) 1 ea UD PRN N/A 08/23/16 12:30 09/22/16 12:29 Heparin Sodium (Porcine) (Heparin Sq 5000 Unit/0.5ml) 5,000 unit Q12 SQ 08/24/16 09:00 09/20/16 08:59 Future hold 09/02/16 20:46 5,000 UNIT Ondansetron HCl (Zofran Inj) 4 mg Q6H PRN IV 08/23/16 22:30 09/22/16 22:29 08/24/16 06:41 4 MG Polyethylene (Miralax Powder Packet) 17 gm HS PO 08/29/16 21:00 09/28/16 20:59 09/02/16 20:36 17 GM Miscellaneous Information (Consult Glycemic Management Pharmacy) 1 ea UD N/A 08/30/16 16:13 09/29/16 16:12 Albuterol/ Ipratropium (Combivent Respimat Inh) 1 puffs QID INH 08/31/16 13:00 09/30/16 12:59 09/02/16 20:36 1 PUFFS Morphine Sulfate (MoRPHine SULFATE INJ) If PO analgesic is orde... Q2H PRN IV 08/31/16 13:45 09/14/16 13:44 Morphine Sulfate (MoRPHine SULFATE INJ) If PO analgesic is orde... Q2H PRN IV 08/31/16 14:00 09/14/16 13:59 Insulin Aspart (novoLOG ASPART) SLIDING SCALE G... ACHS SC 08/31/16 16:00 09/30/16 00:00 09/02/16 17:02 4 UNITS Senna/Docusate Sodium (Senokot S Tab) 1 tab QAM PO 09/01/16 09:00 10/01/16 08:59 09/02/16 08:19 1 TAB Bisacodyl (Dulcolax Supp) 10 mg DAILY PRN [place] 08/31/16 16:15 09/30/16 16:14 09/01/16 09:36 10 MG Daptomycin 500 mg/ Sodium Chloride 60 ml @ 100 mls/hr Q48H IV 09/03/16 09:00 10/06/16 08:59 Insulin Glargine (Lantus Solostar Pen) 15 unit HS SC 09/01/16 21:00 10/01/16 20:59 09/02/16 20:46 15 UNIT Ertapenem 500 mg/ Sodium Chloride 55 ml @ 110 mls/hr Q24H IV 09/02/16 11:00 10/14/16 10:59 09/02/16 11:32 110 MLS/HR Review of Systems Constitutional: No fever, No chills, No weakness, No fatigue ENT: + hearing loss, No sore throat, No trouble swallowing Respiratory: No cough, No sputum, No wheezing, No shortness of breath Cardiovascular: + edema, No chest pain Abdomen: No pain, No nausea, No vomiting, No diarrhea, No GI bleeding Musculoskeletal: + joint pain (left lower extremity feels states better since he had his surgery), + swelling (left lower extremity) Genitourinary - Male: No hematuria Neurologic: + problem reported (+diabetic neuropathy) Hematologic / Lymphatic: No swollen lymph nodes Physical Exam Date Time Temp Pulse Resp B/P (MAP) Pulse Ox O2 Delivery O2 Flow Rate FiO2 09/02/16 20:51 Room Air 09/02/16 19:20 36.8 90 20 117/64 (81) 96 Room Air 09/02/16 16:00 Room Air 09/02/16 15:37 36.7 84 16 96/43 (60) 97 Room Air 09/02/16 13:53 92 97 09/02/16 12:15 36.8 68 16 101/52 (68) 93 Room Air 09/02/16 12:00 Room Air 09/02/16 08:00 Nasal Cannula 2.0 09/02/16 07:47 36.5 103 16 115/66 (82) 98 Nasal Cannula 2.0 09/02/16 04:22 37.0 89 18 106/57 (73) 99 2.0 09/02/16 04:00 Nasal Cannula 2.0 09/02/16 00:27 36.5 90 20 125/57 (79) 99 2.0 09/02/16 00:01 Nasal Cannula 2.0 09/01/16 22:09 36.4 General Appearance: WD/WN, no apparent distress Head: normocephalic, atraumatic Eyes: sclerae normal Neck: no adenopathy Respiratory/Chest: chest non-tender, lungs clear, normal breath sounds Cardiovascular: + irregularly irregular Abdomen/GI: normal bowel sounds, non tender, soft Extremities/Musculoskelatal: + pedal edema Neurologic/Psych: alert, oriented x 3 Skin: warm/dry Laboratory Results Last 24 Hours Test 09/02/16 05:56 09/02/16 06:56 09/02/16 11:07 09/02/16 16:26 White Blood Count 13.89 K/uL Red Blood Count 2.76 M/uL Hemoglobin 7.7 g/dL Hematocrit 24.6 % Mean Corpuscular Volume 89.1 fL Mean Corpuscular Hemoglobin 27.9 pg Mean Corpuscular Hemoglobin Concent 31.3 g/dl Platelet Count 219 K/uL Mean Platelet Volume 9.4 fL Neutrophils (%) (Auto) 81.1 % Lymphocytes (%) (Auto) 5.6 % Monocytes (%) (Auto) 10.8 % Eosinophils (%) (Auto) 1.9 % Basophils (%) (Auto) 0.3 % Neutrophils # (Auto) 11.27 K/uL Lymphocytes # (Auto) 0.78 K/uL Monocytes # (Auto) 1.50 K/uL Eosinophils # (Auto) 0.26 K/uL Basophils # (Auto) 0.04 K/uL RDW Standard Deviation 56.3 fL RDW Coefficient of Variation 17.4 % Immature Granulocyte % (Auto) 0.3 % Immature Granulocyte # (Auto) 0.04 K/uL Red Blood Cell Morphology Unremarkable Sodium Level 136 mmol/L Potassium Level 3.4 mmol/L Chloride Level 100 mmol/L Carbon Dioxide Level 27 mmol/L Anion Gap 9.0 mmol/L Blood Urea Nitrogen 32 mg/dl Creatinine 2.30 mg/dl Est Creatinine Clear Calc Drug Dose 25.1 ml/min Estimated GFR () 28.3 Estimated GFR (Non- 24.4 BUN/Creatinine Ratio 13.9 Random Glucose 107 mg/dl Calcium Level 8.0 mg/dl Bedside Glucose 123 mg/dl 160 mg/dl 90 mg/dl Test 09/02/16 17:43 09/02/16 20:32 Hemoglobin 7.4 g/dL Hematocrit 23.1 % Bedside Glucose 125 mg/dl Assessment & Plan 86 year old male admitted with Peripheral vascular disease admitted with septic arthritis left knee sec to micrococcus species and gangrene of left toe POD 2 On IV antibiotics with daptomycin and ertapenem He had worsening anemia postop likely due to blood loss anemia/recent surgery Has picc line for IV antibiotics RUE superficial thrombus/basilic vein - catheter related Recommend supportive/symptomatic treatment with arm elevation and compressive therapy as needed He is already on aspirin He has elevated creatinine so not a good candidate for NSAID Agree with DVT prophylaxis with prophylactic dose heparin. Can continue DVT prophylaxis as well if maintaining the picc line is mandatory. Recommend follow clinically and recheck venous doppler if any worsening swelling or pain Otherwise, can recheck venous doppler in 7 to 10 days to evaluate for any extension
[2016-09-03] VITALS (11 sets, daily range): BP systolic 92–134; BP diastolic 46–65; PULSE 75–94; TEMP 36.3–36.9; O2SAT 92–98
[2016-09-03 05:48] LABS: HEMATOCRIT 24.5 % (42-52); MEAN CELL VOLUME 90.1 fL (80-100); MEAN CORPUSCULAR HEMOGLOBIN 27.9 pg (25-34); MEAN PLATELET VOLUME 9.8 fL (7.4-10.4); PLATELET COUNT 243 K/uL (130-400); RED BLOOD COUNT 2.72 M/uL (4.7-6.1); WHITE BLOOD COUNT 11.63 K/uL (4.8-10.8)
[2016-09-03 06:46] LABS: BUN/CREATININE RATIO 17.2 (10-20); CALCIUM 8.1 mg/dl (8.5-10.1); CREATININE 2.2 mg/dl (0.60-1.40); POTASSIUM 4.1 mmol/L (3.5-5.1)
[2016-09-03] MEDS ORDERED: ACETAMINOPHEN 325 MG TAB PO ONE (07:45)
[2016-09-03] MEDS: IPRATROPIUM BROMIDE/ALBUTEROL respimat INH INH SCH ×4 (08:03→20:53)
[2016-09-03] MEDS: ASPIRIN 81 MG ECTAB PO SCH (08:03)
[2016-09-03] MEDS: POTASSIUM CHLORIDE 10 MEQ TABCR PO SCH (08:04)
[2016-09-03] MEDS: DOCUSATE SODIUM/SENNA 50/8.6MG TAB PO SCH (08:05)
[2016-09-03] MEDS: MULTIVITAMIN TAB PO SCH (08:05)
[2016-09-03] MEDS: METOPROLOL TARTRATE 25 MG TAB PO SCH ×2 (08:05→21:31)
[2016-09-03] MEDS: INSULIN ASPART 100 UNITS/ML 3 ML PEN SC SCH ×4 (08:10→21:00)
[2016-09-03] MEDS: HEPARIN SOD 5000 UNIT/0.5 ML CARP SQ SCH ×2 (08:11→21:01)
[2016-09-03] MEDS ORDERED: DAPTOmycin IV 500 MG in SODIUM CHLORIDE 0.9% 50ML 50 ML IV SCH (09:00)
--- NOTE | 2016-09-03 09:52 | Progress Note ---
Progress Note Date of Service: Sep 03, 2016. Subjective 86 yo m with multiple medical problems, POD #3 after L femoral endarterectomy, seen in f/u today. Pt denies pain in LLE. Denies other complaints. Problem List Medical Problems: (1) Cellulitis of left leg Status: Acute (2) Left-sided epistaxis Status: Acute Objective Vital Signs Vital Signs Past 12 Hours Date Time Temp Pulse Resp B/P (MAP) Pulse Ox O2 Delivery O2 Flow Rate FiO2 09/03/16 07:32 36.6 90 18 114/62 (79) 92 Room Air 09/03/16 04:12 Room Air 09/03/16 03:24 36.7 94 20 121/56 (77) 94 Room Air 09/03/16 00:11 Room Air 09/02/16 23:16 36.4 86 20 110/58 (75) 94 Room Air Exam CONST: A&O x4, NAD, mildly chronically ill appearing male, EXT: QUAN. L distal DP + with doppler, 3rd toe wrapped, other toes pink with brisk cap refill. +3 edema BLE Laboratory and Microbiology Results Past 24 Hours Test 09/02/16 11:07 09/02/16 16:26 09/02/16 17:43 09/02/16 20:32 Range/Units Bedside Glucose 160 90 125 70-99 mg/dl Hemoglobin 7.4 14.0-18.0 g/dL Hematocrit 23.1 42-52 % Test 09/03/16 05:02 09/03/16 06:53 Range/Units White Blood Count 11.63 4.8-10.8 K/uL Red Blood Count 2.72 4.7-6.1 M/uL Hemoglobin 7.6 14.0-18.0 g/dL Hematocrit 24.5 42-52 % Mean Corpuscular Volume 90.1 80-100 fL Mean Corpuscular Hemoglobin 27.9 25-34 pg Mean Corpuscular Hemoglobin Concent 31.0 32-36 g/dl RDW Standard Deviation 56.4 36.4-46.3 fL RDW Coefficient of Variation 17.2 11.5-14.5 % Platelet Count 243 130-400 K/uL Mean Platelet Volume 9.8 7.4-10.4 fL Sodium Level 138 136-145 mmol/L Potassium Level 4.1 3.5-5.1 mmol/L Chloride Level 101 98-107 mmol/L Carbon Dioxide Level 27 21-32 mmol/L Anion Gap 10.0 3-11 mmol/L Blood Urea Nitrogen 38 7-18 mg/dl Creatinine 2.20 0.60-1.40 mg/dl Est Creatinine Clear Calc Drug Dose 25.9 ml/min Estimated GFR () 29.9 Estimated GFR (Non- 25.8 BUN/Creatinine Ratio 17.2 10-20 Random Glucose 100 70-99 mg/dl Calcium Level 8.1 8.5-10.1 mg/dl Bedside Glucose 113 70-99 mg/dl ASSESSMENT and PLAN: s/p L femoral endarterectomy L comm fem art stenosis with L toe gangrene Pt doing well post op. Will see in office in 2-3 weeks for staple removal. Will let toe demarcate more and decide at his follow up visit as far as future plans for the toe. Please call if needed.
[2016-09-03] MEDS: ERTAPENEM IV 500 MG in SODIUM CHLORIDE 0.9% 50ML 50 ML IV SCH (10:49)
--- NOTE | 2016-09-03 12:01 | Orthopedic Progress Note ---
Orthopedic Progress Note Date of Service Sep 03, 2016. Subjective Post OP Day: 11 Reports: feeling well, pain controlled w PO medications, Denies: complaints, chest pain, SOB, nausea / vomiting, light headedness, calf pain Additional Notes: Tolerating regular diet, but states he doesn't have much of an appetite. Objective calves soft nontender, N/V intact, capillary refill less than 2 sec., incision C /D/I, A&O x3, toes mobile Tolerates ROM to left knee, small effusion, no ecchymosis. Distal extremity edema. Date Time Temp Pulse Resp B/P (MAP) Pulse Ox O2 Delivery O2 Flow Rate FiO2 09/03/16 11:45 36.9 75 16 99/54 96 09/03/16 11:24 36.3 86 18 92/52 (65) 93 09/03/16 08:00 Room Air 09/03/16 07:32 36.6 90 18 114/62 (79) 92 Room Air 09/03/16 04:12 Room Air 09/03/16 03:24 36.7 94 20 121/56 (77) 94 Room Air 09/03/16 00:11 Room Air 09/02/16 23:16 36.4 86 20 110/58 (75) 94 Room Air 09/02/16 20:51 Room Air 09/02/16 19:20 36.8 90 20 117/64 (81) 96 Room Air 09/02/16 16:00 Room Air 09/02/16 15:37 36.7 84 16 96/43 (60) 97 Room Air 09/02/16 13:53 92 97 09/02/16 12:15 36.8 68 16 101/52 (68) 93 Room Air 09/02/16 12:00 Room Air Laboratory Results 24 Hours: Test 09/02/16 17:43 09/03/16 05:02 Hematocrit 23.1 % 24.5 % Hemoglobin 7.4 g/dL 7.6 g/dL Assessment & Plan Assessment: POD 11 s/p Left knee arthroscopic irrigation and debridement. Plan: Sutures removed today, steri strips applied Continue Antibiotics as per I.D. Cont PO pain medication as needed. Ok to be out of bed as tolerated with the assistance of a walker. Allowed for full ROM as tolerated left knee Ice to left knee as tolerated. Cont medical coverage. Will discuss findings with Dr. Marin. Ok from orthopedic standpoint for discharge, plan to follow up with Dr. Marin in 3-4 weeks. Recommend continuing antibiotics until that appointment. Appointment scheduled. (1) Peripheral vascular disease Chronic Discharge Planning Discharge Planning: uncertain
--- NOTE | 2016-09-03 12:03 | Consultant Recommendations ---
Director Building Recommendations Date of Service Sep 03, 2016. Director Building Recommendations Full active range of motion left knee as tolerated. May weight bear as tolerated left knee. Steri-strips left knee incisions as needed. Ice and elevate left knee as needed. Use walker to assist with ambulation. Antibiotics as prescribed. Follow up with Dr. Marin on 10/01/16 at 10:00 a.m. Please call with questions or concerns regarding left knee. [phone].
[2016-09-03] MEDS ORDERED: DAPT500I IV (14:13)
[2016-09-03] MEDS ORDERED: RXC5 PO (14:13)
[2016-09-03] MEDS ORDERED: ERTA1INJ IV (14:13)
--- NOTE | 2016-09-03 15:48 | Nephrology Progress Note ---
Nephrology Progress Note Date of Service: Sep 03, 2016. Subjective edema and pain controlled; feeling well after L common femoral endarterectomy ; no chest pain or orthopnea Objective Date Time Temp Pulse Resp B/P (MAP) Pulse Ox O2 Delivery O2 Flow Rate FiO2 09/03/16 15:02 36.7 78 28 105/54 (71) 97 Room Air 09/03/16 14:00 36.7 75 16 126/57 97 09/03/16 13:07 36.7 78 18 107/54 98 09/03/16 12:30 36.6 80 16 99/46 98 09/03/16 12:00 36.9 83 16 97/51 95 09/03/16 12:00 Room Air 09/03/16 11:45 36.9 75 16 99/54 96 09/03/16 11:24 36.3 86 18 92/52 (65) 93 09/03/16 08:00 Room Air 09/03/16 07:32 36.6 90 18 114/62 (79) 92 Room Air 09/03/16 04:12 Room Air 09/03/16 03:24 36.7 94 20 121/56 (77) 94 Room Air 09/03/16 00:11 Room Air 09/02/16 23:16 36.4 86 20 110/58 (75) 94 Room Air 09/02/16 20:51 Room Air 09/02/16 19:20 36.8 90 20 117/64 (81) 96 Room Air 09/02/16 16:00 Room Air 09/02/16 15:37 36.7 84 16 96/43 (60) 97 Room Air Physical Exam: GENERAL: Awake, alert and oriented x3. Hard of hearing. up in chair on RA EYES: No scleral icterus. ENT: Moist mucous membranes. temporal wasting NECK: Supple. PULMONARY: Clear to auscultation but very diminished bs CARDIAC: Irregularly irregular ABDOMEN: Bowel sounds positive, soft and nontender. matos w/ small amount of urine EXTREMITIES: Left knee drain removed; 1+ LLE edema w/ L boot. NEUROLOGICAL: mena, fluent speech Current Inpatient Medications Medications (Trade) Dose Ordered Sig/Rosemarie Route Start Time Stop Time Status Last Admin Dose Admin Acetaminophen (Tylenol Tab) 650 mg Q4H PRN PO 08/20/16 16:00 09/19/16 15:59 6/14/17 20:17 650 MG Aspirin (Ecotrin Tab) 81 mg QAM PO 08/21/16 09:00 09/20/16 08:59 09/03/16 08:03 81 MG Folic Acid (Folvite Tab) 1 mg QAM PO 08/21/16 09:00 09/20/16 08:59 09/03/16 08:04 1 MG Metoprolol Tartrate (Lopressor Tab) 25 mg BID PO 08/20/16 21:00 09/19/16 20:59 09/03/16 08:05 25 MG Multivitamins (Multivitamin Tab) 1 tab DAILY PO 08/21/16 09:00 09/20/16 08:59 09/03/16 08:05 1 TAB Potassium Chloride (Klor-Con M10) 10 meq DAILY PO 08/21/16 09:00 09/20/16 08:59 09/03/16 08:04 10 MEQ Glucose (Glucose 40% Gel) 15-30 GRAMS 15 GRAMS... UD PRN PO 08/20/16 21:00 09/19/16 20:59 Glucose (Glucose Chew Tab) 4-8 Tablets 4 Tabl... UD PRN PO 08/20/16 21:00 09/19/16 20:59 Dextrose (Dextrose 50% 50ML Syringe) 25-50ML OF 50% DW IV FOR... UD PRN IV 08/20/16 21:00 09/19/16 20:59 Glucagon (Glucagon Inj) 1 mg UD PRN SQ 08/20/16 21:00 09/19/16 20:59 Oxycodone HCl (Roxicodone Immediate Rel Tab) 5 mg Q6H PRN PO 08/22/16 00:00 09/05/16 00:00 08/23/16 21:47 5 MG Daptomycin (Consult) 1 ea UD PRN N/A 08/23/16 12:30 09/22/16 12:29 Heparin Sodium (Porcine) (Heparin Sq 5000 Unit/0.5ml) 5,000 unit Q12 SQ 08/24/16 09:00 09/20/16 08:59 Future hold 09/03/16 08:11 5,000 UNIT Ondansetron HCl (Zofran Inj) 4 mg Q6H PRN IV 08/23/16 22:30 09/22/16 22:29 08/24/16 06:41 4 MG Polyethylene (Miralax Powder Packet) 17 gm HS PO 08/29/16 21:00 09/28/16 20:59 09/02/16 20:36 17 GM Miscellaneous Information (Consult Glycemic Management Pharmacy) 1 ea UD N/A 08/30/16 16:13 09/29/16 16:12 Albuterol/ Ipratropium (Combivent Respimat Inh) 1 puffs QID INH 08/31/16 13:00 09/30/16 12:59 09/03/16 12:04 1 PUFFS Morphine Sulfate (MoRPHine SULFATE INJ) If PO analgesic is orde... Q2H PRN IV 08/31/16 13:45 09/14/16 13:44 Morphine Sulfate (MoRPHine SULFATE INJ) If PO analgesic is orde... Q2H PRN IV 08/31/16 14:00 09/14/16 13:59 Insulin Aspart (novoLOG ASPART) SLIDING SCALE G... ACHS SC 08/31/16 16:00 09/30/16 00:00 09/03/16 12:06 10 UNITS Senna/Docusate Sodium (Senokot S Tab) 1 tab QAM PO 09/01/16 09:00 10/01/16 08:59 09/03/16 08:05 1 TAB Bisacodyl (Dulcolax Supp) 10 mg DAILY PRN [place] 08/31/16 16:15 09/30/16 16:14 09/01/16 09:36 10 MG Daptomycin 500 mg/ Sodium Chloride 60 ml @ 100 mls/hr Q48H IV 09/03/16 09:00 10/06/16 08:59 09/03/16 08:02 100 MLS/HR Insulin Glargine (Lantus Solostar Pen) 15 unit HS SC 09/01/16 21:00 10/01/16 20:59 09/02/16 20:46 15 UNIT Ertapenem 500 mg/ Sodium Chloride 55 ml @ 110 mls/hr Q24H IV 09/02/16 11:00 10/14/16 10:59 09/03/16 10:49 110 MLS/HR Last 24 Hours Test 09/02/16 16:26 09/02/16 17:43 09/02/16 20:32 09/03/16 05:02 Bedside Glucose 90 mg/dl 125 mg/dl Hemoglobin 7.4 g/dL 7.6 g/dL Hematocrit 23.1 % 24.5 % White Blood Count 11.63 K/uL Red Blood Count 2.72 M/uL Mean Corpuscular Volume 90.1 fL Mean Corpuscular Hemoglobin 27.9 pg Mean Corpuscular Hemoglobin Concent 31.0 g/dl RDW Standard Deviation 56.4 fL RDW Coefficient of Variation 17.2 % Platelet Count 243 K/uL Mean Platelet Volume 9.8 fL Sodium Level 138 mmol/L Potassium Level 4.1 mmol/L Chloride Level 101 mmol/L Carbon Dioxide Level 27 mmol/L Anion Gap 10.0 mmol/L Blood Urea Nitrogen 38 mg/dl Creatinine 2.20 mg/dl Est Creatinine Clear Calc Drug Dose 25.9 ml/min Estimated GFR () 29.9 Estimated GFR (Non- 25.8 BUN/Creatinine Ratio 17.2 Random Glucose 100 mg/dl Calcium Level 8.1 mg/dl Test 09/03/16 06:53 09/03/16 11:02 Bedside Glucose 113 mg/dl 138 mg/dl Assessment & Plan 86-year-old male, with a history of A-Fib, no longer on anticoagulation and w/ bioprosthetic aortic valve as well as CKD stage 3 with baseline creatinine around 1.6 and w/ severe PAD admitted 08/20 w/ L knee septic arthritis and L toe gangrene s/p L common femoral endarterectomy. Had presenting creatinine 1.9; peaked at 2.4 on 08/23; trended down to 1.6 on 08/29, now back up to 2.0. Not particularly hypertensive; got pRBC in OR yesterday; also had AF w/ RVR Acute kidney injury on chronic kidney disease stage 3 with baseline creatinine of 1.6; stable non oliguric ATN in the setting of inflammation from infection and of abtx -held ARB and diuretic starting 09/01 to prevent creatinine from worsening further > cont to hold both for now -hold ARB and diuretic at d/c -would recheck bmp either at 09/09 Dr Luo f/u visit >> can consider resuming ARB or diuretic or both at that point -daily bmp -cont strict I/O -has PICC -cont to hold ivf and diuretics prn only for now Anemia -for pRBC today Appreciate consult; will follow with you. Care coordinated w/Dr. Zuluaga
--- NOTE | 2016-09-03 15:51 | Consultant Recommendations ---
Improvement Lead Recommendations Date of Service Sep 03, 2016. Improvement Lead Recommendations Full active range of motion left knee as tolerated. May weight bear as tolerated left knee. Steri-strips left knee incisions as needed. Ice and elevate left knee as needed. Use walker to assist with ambulation. Antibiotics as prescribed. Follow up with Dr. Marin on 10/01/16 at 10:00 a.m. Please call with questions or concerns regarding left knee. [phone]. NEPHROLOGY DISCHARGE RECOMMENDATIONS -hold cozaar and lasix at discharge -would recheck bmp either at 09/09 2:[address] Luo CKD follow up visit (already scheduled) >> can consider resuming cozaar, lasix, or both at that point -limit fluid intake to 1.5 liters daily at hospital discharge and less than 2000 mg daily sodium diet
--- NOTE | 2016-09-03 16:56 | Discharge Instructions ---
Discharge Instructions Date of Service Sep 03, 2016. Admission Reason for Admission: Atrial Fibrillation,Cellulitis And Abscess Of Foot Discharge Discharge Diagnosis / Problem: PAD s/p endarterectomy, afib, toe infection, septic arthritis L knee Discharge Goals Goal(s): Prevent Disease Progression Activity Recommendations Activity Limitations: per Instructions/Follow-up section . Instructions / Follow-Up Instructions / Follow-Up Please take all medications as instructed. You will need 4 weeks of IV antibiotics, which will be managed by Dr. Arnol Morelos at [facility]Infectious Disease clinic. You will need weekly labwork to be sent to him while on these IV medications including weekly CBC w/diff, Creatinine Kinase , and BMP. Results should be faxed to his office for review. You will need to obtain a follow-up appointment with him within 3 weeks of discharge from the hospital. You have a small clot around the PICC insertion site (the IV in your right arm) . After evaluation by Dr. Marques Plata, she recommends that you have a repeat upper extremity ultrasound in 7-10 days to reassess this. If your arm becomes more swollen or uncomfortable, however, an ultrasound should be done sooner than that to ensure there has been no progression of this clot. The ultrasound can be ordered through your primary care physician's (PCP) office. Please follow all post-operative instructions below. Please ensure scheduled follow-up with Dr. Baldo Jefferson (Vascular Surgeon) within 2-3 weeks for staple removal and post-operative wound check. Please ensure follow-up with your PCP within one week of discharge from the rehab facility. Please follow-up with Nephrology within 4 weeks of discharge from the hospital for monitoring of your kidney function. Please follow-up with Orthopedic Surgery per instructions (General Machinist Recommendations) below. It was a pleasure taking care of you! Call if you have any questions or problems. You can reach a [facility] hospitalist on duty at [facility] 24 hours a day by calling [phone]. Take care of yourself. DO [facility] Hospital[facility] Current Hospital Diet Patient's current hospital diet: Diabetes Type 2 Diet Discharge Diet Recommended Diet: Diabetes Type 2 Diet Procedures Procedures Performed: Left Lower Extremity Common Femoral Endarterectomy with patch Pending Studies Studies pending at discharge: no Medical Emergencies . Who to Call and When: Medical Emergencies: If at any time you feel your situation is an emergency, please call 911 immediately. . Non-Emergent Contact Non-Emergency issues call your: Primary Care Provider . . "Provider Documentation" section prepared by Jennifer Zuluaga. . General Machinist Recommendations General Machinist Recommendations: Full active range of motion left knee as tolerated. May weight bear as tolerated left knee. Steri-strips left knee incisions as needed. Ice and elevate left knee as needed. Use walker to assist with ambulation. Antibiotics as prescribed. Follow up with Dr. Marin on 10/01/16 at 10:00 a.m. Please call with questions or concerns regarding left knee. [phone]. VTE Core Measure Inpt VTE Proph given/why not?: Unfractionated heparin SQ
[2016-09-03 17:31] LABS: HEMATOCRIT 25.5 % (42-52)
[2016-09-03] MEDS: POLYETHYLENE (MIRALAX) 17 GM PACK PO SCH (20:53)
[2016-09-03] MEDS: INSULIN GLARGINE SOLOSTAR 100 UNITS/ML 3 ML PEN SC SCH (21:01)
[2016-09-04 03:13] VITALS: BP 132/63; PULSE 85; TEMP 36.5; O2SAT 93
[2016-09-04 08:00] VITALS: BP 125/75; PULSE 89; TEMP 37; O2SAT 94
[2016-09-04] MEDS: IPRATROPIUM BROMIDE/ALBUTEROL respimat INH INH SCH ×2 (08:05→11:57)
[2016-09-04] MEDS: POTASSIUM CHLORIDE 10 MEQ TABCR PO SCH (08:06)
[2016-09-04] MEDS: METOPROLOL TARTRATE 25 MG TAB PO SCH (08:06)
[2016-09-04] MEDS: MULTIVITAMIN TAB PO SCH (08:06)
[2016-09-04] MEDS: DOCUSATE SODIUM/SENNA 50/8.6MG TAB PO SCH (08:07)
[2016-09-04] MEDS: INSULIN ASPART 100 UNITS/ML 3 ML PEN SC SCH ×2 (08:19→11:00)
[2016-09-04] MEDS: HEPARIN SOD 5000 UNIT/0.5 ML CARP SQ SCH (08:20)
[2016-09-04 09:31] LABS: HEMATOCRIT 25.7 % (42-52); MEAN CELL VOLUME 90.5 fL (80-100); MEAN CORPUSCULAR HEMOGLOBIN 30.3 pg (25-34); MEAN CORPUSCULAR HGB CONC 33.5 g/dl (32-36); MEAN PLATELET VOLUME 9.7 fL (7.4-10.4); PLATELET COUNT 245 K/uL (130-400); RED BLOOD COUNT 2.84 M/uL (4.7-6.1); WHITE BLOOD COUNT 10.37 K/uL (4.8-10.8)
[2016-09-04] MEDS: ASPIRIN 81 MG ECTAB PO SCH (09:42)
[2016-09-04 10:00] LABS: BUN/CREATININE RATIO 16.8 (10-20); CREATININE 2.2 mg/dl (0.60-1.40); POTASSIUM 4.4 mmol/L (3.5-5.1)
[2016-09-04 11:01] VITALS: BP 125/75; PULSE 89; TEMP 37; O2SAT 94
[2016-09-04] MEDS: ERTAPENEM IV 500 MG in SODIUM CHLORIDE 0.9% 50ML 50 ML IV SCH (11:06)
--- NOTE | 2016-09-06 13:52 | Discharge Summary ---
Discharge Summary Date of Service Sep 06, 2016. Discharge Summary Admission Date: Aug 20, 2016 at 16:02 Discharge Date: Sep 04, 2016 Discharge Disposition: Rehab Principal Diagnosis: PAD s/p endarterectomy L foot infection Acute on chronic diastolic heart failure L septic arthritis Acute blood loss anemia CKD III CAD Chronic atrial fibrillation HTN DMII HLP RA Procedures: cardiac monitoring IV meds venous duplex left lower extremity arterial duplex left lower extremity arthrocentesis left knee arthroscopic irrigation and debridement left knee by Dr. Marin 08/23/16 . Vaccinations: None. Consultations: ID Orthopedic Surgery Vascular Surgery . Pending Studies/Follow-Up: see instructions below. Medication Reconciliation New Medications: Daptomycin (Daptomycin) 500 Mg Inj 500 MG IV Q2D for 28 Days, #14 DOSE Begin 09/05 at 0800 Ertapenem Sodium (Invanz) 1 Gm Inj 1 GM IV DAILY for 28 Days, #28 DOSE Begin 09/03 Oxycodone HCl (Oxycodone HCl) 5 Mg Tab 5 MG PO Q6H PRN for moderately severe pain for 7 Days, #28 TAB Continued Medications: Aspirin Enteric Coated (Ecotrin Or Generic) 81 Mg Tab 81 MG PO QAM, TAB Cholecalciferol (Vitamin D) 2,000 Unit Tab 2000 UNIT PO QAM Folic Acid (Folic Acid) 1 Mg Tab 1 MG PO QAM EXCEPT TUESDAYS, DO NOT TAKE WITH METHOTREXATE Furosemide (Furosemide) 40 Mg Tab 40 MG PO DAILY Insulin Glargine (Lantus) 100 Unit/Ml Inj 15 UNITS SC QPM, VIAL Insulin Human Regular (Novolin R) 100 Units/1 Ml Inj 15 UNITS SQ DAILYBB Insulin Human Regular (Novolin R) 100 Units/1 Ml Inj 12 UNITS SQ DAILYBL Insulin Human Regular (Novolin R) 100 Units/1 Ml Inj 20 UNITS SQ DAILYBD Metoprolol Tartrate (Lopressor) (Lopressor) 25 Mg Tab 25 MG PO BID, TAB Multivitamin (Multivitamin) Tab 1 TAB PO DAILY, TAB Potassium Chloride (Micro-K Ext Rel) 10 Meq Capcr 10 MEQ PO DAILY, CAP Discontinued Medications: Ferrous Gluconate (Fe Gluconate) 325 Mg Tab 325 MG PO QAM Losartan Potassium (Cozaar) 25 Mg Tab 12.5 MG PO DAILY, TAB Methotrexate (Methotrexate Sodium) 50 Mg/2 Ml Inj 10 MG SQ WK for TUESDAYS ONLY Simvastatin (Zocor) 20 Mg Tab 10 MG PO QPM, TAB Admission Information HPI (per Admitting provider): 86 YO male followed by Dr. Narvaez for Family Medicine, Dr. Stewart for Cardiology, Dr. Luo for Nephrology, and Dr. Bahena for Rheumatology. History of coronary artery disease, chronic AF, bioprosthetic AVR, DM, CKD, RA, and other problems as noted below. Lives independently in home in [place]. Toenails trimmed by Podiatry a few days ago. Yesterday noted erythema of left third toe. This morning he noted erythema rapidly ascending from his foot to his leg. No fever, chills, sweats. No lower extremity pain. History of diabetic neuropathy. History of peripheral vascular disease, s/p bypass procedure RLE. 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 . Physical Exam (per Admitting): General Appearance: WD/WN, no apparent distress Head: normocephalic, atraumatic Eyes: normal inspection, PERRL, EOMI, sclerae normal ENT: normal ENT inspection, pharynx normal, + pertinent finding (dentures) Neck: supple, no adenopathy, thyroid normal, no JVD, trachea midline Respiratory/Chest: lungs clear, no respiratory distress, no accessory muscle use Cardiovascular: no edema, no gallop, no JVD, + systolic murmur (II/ sys murmur @ base), + irregularly irregular, + abnormal peripheral pulses (pedal pulses 1/2 bilat; capillary refill toes 1-2 sec; trace pretibial edema LLE) Abdomen/GI: normal bowel sounds, non tender, soft, no organomegaly, no pulsatile mass Extremities/Musculoskelatal: no calf tenderness, + pertinent finding (left 3rd toe with dark bullous lesion on plantar surface and erythema on dorsal surface; erythema dorsum of foot extending to left leg below knee) 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 1. PAD with L foot gangrene- no osteo on xray, BCx no growth to date, IV Vanc and ceftriaxone initially started, then changed to Dapto and Zosyn. ID following and recommends to cont this therapy for now. A small amount of erythema persists on dorsal side of foot but appears somewhat improved. Of note , patient is a diabetic with significant diabetic neuropathy. 08/31: pt underwent endarterectomy of left leg today, tolerating procedure well. No pain post-op and recovering in ICU with monitoring there overnight. 09/01: POD #1, no pain, tolerating PO, doing well, incision sites healing well, transferred out of ICU to telemetry. PICC placed today for better vascular access. LLE edema is present with improvement in redness on dorsum of foot distal to infected toe. L knee without signs of erythema or effusion and still on IV abx. Awaiting narrowing of spectrum per ID when ready. 09/02: POD#2, no pain, tolerating PO, incision sites healing well. PICC with superficial clot at insertion site-consulted Heme for definitive care recs. Pt needs PICC for outpatient abx for next 4 weeks. Min swelling and no pain or other symptoms are present as a result. ID pared abx to Dapto and Ertapenem x 4 weeks. 2. Acute on chronic diastolic heart failure-compensated, patient greatly improved today with clear lungs and no supplemental oxygen requirement. Cont with small amount of Lasix to assist with symptoms control. 3. L knee septic arthritis-in setting of RA, s/p L knee arthroscopic irrigation and debridement done by Dr. Marin. Synovial fluid positive for Micrococcus species. Cont abx as above per ID x 4 weeks. Cont PT/OT. Cont pain control efforts; well-managed at this time. 4. Acute blood loss anemia s/p operation. Required 2 units of blood total this hospitalization. Repeat H/H now, patient is asymptomatic. Will plan to give blood if any further decrease from this morning's value. Pt is aware of this and verbalized understanding of plan. 5. CKD III- Baseline creatinine 1.6. Creatinine on admission 1.9. Currently is 2.3. Diuretics were initially held to improve renal function, however, were recently restarted for symptom control. Follow-up with [facility] as outpatient and hold Cozaar on discharge. 6. CAD-no anginal symptoms, cont medical management with ASA and Lopressor. Statin on hold in setting of Daptomycin use. 7. Chronic atrial fibrillation-cont metoprolol for rate control. Anticoagulation discontinued by Cardiology due to epistaxis and unsteady gait. Continue aspirin and metoprolol. 8. s/p bioprosthetic aortic valve. 9. HTN-controlled, continue metoprolol and losartan with hold parameters 10. 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 Hgb A1C 7.0 on , Lantus/ISS per inpatient glycemic pharmacist recs. 11. HLP- Hold simvastatin due to therapy with daptomycin. 12. RA: Hold methotrexate pending resolution of cellulitis. On day of discharge he was mentating at baseline and ambulating with a walker. He was tolerating PO and denied any pain. He was hemodynamically stable and was optimized from a renal and cardiac standpoint. He will continue with IV abx for 4 weeks per ID. He was discharged in stable condition with multiple follow-up appointments in the net month. Total time spent on discharge = 60 minutes This includes examination of the patient, discharge planning, medication reconciliation, and communication with other providers. Discharge Instructions Discharge Instructions Date of Service Sep 03, 2016. Admission Reason for Admission: Atrial Fibrillation,Cellulitis And Abscess Of Foot Discharge Discharge Diagnosis / Problem: PAD s/p endarterectomy, afib, toe infection, septic arthritis L knee Discharge Goals Goal(s): Prevent Disease Progression Activity Recommendations Activity Limitations: per Instructions/Follow-up section . Instructions / Follow-Up Instructions / Follow-Up Please take all medications as instructed. You will need 4 weeks of IV antibiotics, which will be managed by Dr. Arnol Morelos at [facility]. You will need weekly labwork to be sent to him while on these IV medications including weekly CBC w/diff, Creatinine Kinase , and BMP. Results should be faxed to his office for review. You will need to obtain a follow-up appointment with him within 3 weeks of discharge from the hospital. You have a small clot around the PICC insertion site (the IV in your right arm) . After evaluation by Dr. Marques Plata, she recommends that you have a repeat upper extremity ultrasound in 7-10 days to reassess this. If your arm becomes more swollen or uncomfortable, however, an ultrasound should be done sooner than that to ensure there has been no progression of this clot. The ultrasound can be ordered through your primary care physician's (PCP) office. Please follow all post-operative instructions below. Please ensure scheduled follow-up with Dr. Baldo Jefferson (Vascular Surgeon) within 2-3 weeks for staple removal and post-operative wound check. Please ensure follow-up with your PCP within one week of discharge from the rehab facility. Please follow-up with Nephrology within 4 weeks of discharge from the hospital for monitoring of your kidney function. Please follow-up with Orthopedic Surgery per instructions (De[employer]am [employer]redge Recommendations) below. It was a pleasure taking care of you! Call if you have any questions or problems. You can reach a [facility] hospitalist on duty at [facility] 24 hours a day by calling [phone]. Take care of yourself. Jennifer Zuluaga, DO [facility] Hospitalist Additional Copies To Seng Narvaez III, M.D.
[2016-09-27] MEDS ORDERED: IPRASOL4 INH (15:22)
[2016-10-19] MEDS ORDERED: OXYC-57 PO (08:09)
[2016-12-06] MEDS ORDERED: ASCO1CAP3 PO (12:46)
[2016-12-06] MEDS ORDERED: NVLGI/PEN SQ (13:17)
[2016-12-06] MEDS ORDERED: PROTEIN PO (13:17)
[2016-12-20] MEDS ORDERED: ULT50X PO (19:08)
[2017-01-06] MEDS ORDERED: LINE1TAB2 PO (13:33)
[2017-02-01] MEDS ORDERED: FURO-85 PO (19:00)
[2017-02-01] MEDS ORDERED: PRT40 PO (19:00)
[2017-02-01] MEDS ORDERED: NUTR-7 PO (19:00)
[2017-02-04] MEDS ORDERED: VANC1INJ94 IV (10:32)
[2017-02-21] MEDS ORDERED: CIPR1TAB11 PO (09:35)
== END 2016-09-04 12:23 | DRG 252 ==
LOC: C.EDB 13:27 → C.2T 16:02 → ENRESERV 16:53 → C.MED 08-21 16:56 → ENRESERV 08-21 17:10 → C.MSN 08-24 20:17 → ENRESERV 08-31 14:23 → C.MSICU 08-31 15:00 → CMPBEDREQ 08-31 15:01 → ENRESERV 09-01 13:45 → C.2T 09-01 14:22
PROVIDERS: ADMIT Hospitalist; ATTEND Hospitalist
PROC: 0SBD4ZZ Excision of Left Knee Joint, Percutaneous Endoscopic Approach (ICD-10-PCS; principal; 2016-08-23 09:15)
PROC: 04CL0ZZ Extirpation of Matter from Left Femoral Artery, Open Approach (ICD-10-PCS; 2016-08-31)
DX: I96 Gangrene, not elsewhere classified (principal); I50.21 Acute systolic (congestive) heart failure; L03.116 Cellulitis of left lower limb; M00.9 Pyogenic arthritis, unspecified; D62 Acute posthemorrhagic anemia; Z66 Do not resuscitate; I48.91 Unspecified atrial fibrillation; N18.3 Chronic kidney disease, stage 3 (moderate); E78.5 Hyperlipidemia, unspecified; Z90.49 Acquired absence of other specified parts of digestive tract; E11.319 Type 2 diabetes mellitus with unspecified diabetic retinopathy without macular edema; E11.21 Type 2 diabetes mellitus with diabetic nephropathy; E11.40 Type 2 diabetes mellitus with diabetic neuropathy, unspecified; M25.462 Effusion, left knee; Z79.4 Long term (current) use of insulin; Z87.891 Personal history of nicotine dependence

== ENCOUNTER 2016-09-19 15:19 | Inpatient (IN) | payer OTHER, MEDICARE ==
[~2016-09-19] VITALS: Ht 177.8 cm; Wt 81.1 kg
[~2016-09-19 15:19] MED LIST changes: -ASPEC81 PO; +ASPI81TA21 PO; +CHOL20009 PO; +DAPT500I IV; +ERTA1INJ IV; -FERR324T PO; -HYDC25 PO; -LOSA1TAB PO; -METH1INJ89 SQ; +METO25TA56 PO; -METO50TA16 PO; +RXC5 PO; -SIMV20TA2 PO
[2016-09-19 15:54] VITALS: PULSE 95; O2SAT 98
[2016-09-19 15:58] LABS: BASO % 0.1 %; BASO ABS # 0.01 K/uL (0-0.2); EOS % 0.1 %; HEMATOCRIT 26.7 % (42-52); IG% 0.3 %; LYMPH % 4.9 %; LYMPH ABS # 0.75 K/uL (1.2-3.4); MEAN CELL VOLUME 89.9 fL (80-100); MEAN CORPUSCULAR HEMOGLOBIN 28.6 pg (25-34); MEAN CORPUSCULAR HGB CONC 31.8 g/dl (32-36); MEAN PLATELET VOLUME 10.1 fL (7.4-10.4); NEUT % 83.6 %; PLATELET COUNT 181 K/uL (130-400); RED BLOOD COUNT 2.97 M/uL (4.7-6.1); WHITE BLOOD COUNT 15.43 K/uL (4.8-10.8)
[2016-09-19 16:04] LABS: INR 1.3 (0.9-1.1); PROTHROMBIN TIME (PATIENT) 13.8 SECONDS (9.0-12.0)
[2016-09-19] MEDS ORDERED: LORAZEPAM 2 MG/ML 1 ML VIAL IV STA (16:04)
[2016-09-19 16:05] LABS: ALT/SGPT 29 U/L (12-78); BLOOD UREA NITROGEN 46 mg/dl (7-18); CALCIUM 8.5 mg/dl (8.5-10.1); CARBON DIOXIDE 25 mmol/L (21-32); CHLORIDE 101 mmol/L (98-107); GLUCOSE 160 mg/dl (70-99); MAGNESIUM 1.9 mg/dl (1.8-2.4); POTASSIUM 3.8 mmol/L (3.5-5.1); SODIUM 137 mmol/L (136-145)
[2016-09-19 16:15] LABS: ALB/GLOB RATIO 0.4 (0.9-2); ALKALINE PHOSPHATASE 85 U/L (45-117); AST/SGOT 30 U/L (15-37)
[2016-09-19 16:17] LABS: COMPLETE YES
[2016-09-19] MEDS ORDERED: PIPERACILLIN/TAZOBACTAM 3.375 GM/100ML D5W IV STA (16:29)
[2016-09-19] MEDS ORDERED: VANCOMYCIN 1GM/270ML NSS IV STA (16:29)
[2016-09-19] MEDS ORDERED: LEVAQUIN 750MG / 150ML D5W IV ONE (16:30)
[2016-09-19] MEDS ORDERED: FUROSEMIDE INJ 40 MG in SYRINGE 0 ML IV STA (16:38)
[2016-09-19] MEDS ORDERED: FUROSEMIDE 40 MG/4 ML VIAL ONE (17:02)
[2016-09-19] MEDS ORDERED: DFL100 PO (17:03)
[2016-09-19] MEDS ORDERED: FERR1TAB13 PO (17:03)
[2016-09-19] MEDS ORDERED: NVLG SC ×3 (17:03→17:09)
[2016-09-19] MEDS ORDERED: DOCU-94 PO (17:03)
[2016-09-19] MEDS ORDERED: FURO-85 PO (17:03)
[2016-09-19] MEDS ORDERED: CHOL20007 PO (17:06)
[2016-09-19] MEDS ORDERED: MULT-513 PO (17:06)
[2016-09-19] MEDS ORDERED: LEVO-17 PO (17:06)
[2016-09-19] MEDS ORDERED: IPRASOL4 INH (17:06)
[2016-09-19] MEDS ORDERED: INSDGI SC (17:09)
[2016-09-19] MEDS ORDERED: FOLI1TAB7 PO (17:10)
[2016-09-19] MEDS ORDERED: ACET-1256 PO (17:16)
[2016-09-19] MEDS ORDERED: POLY335019 PO (17:16)
[2016-09-19] MEDS ORDERED: SENN-104 PO (17:16)
[2016-09-19 17:19] LABS: URINE APPEARANCE CLOUDY (CLEAR); URINE BILIRUBIN NEG (NEG); URINE COLOR YELLOW; URINE EPITHELIAL CELL AUTO >30 /lpf (0-5); URINE NITRITE NEG (NEG); UROBILINOGEN NEG (NEG); ZZUR CULT IF INDIC CLEAN CATCH YES
[2016-09-19 17:26] LABS: MANUAL MICROSCOPIC REQUIRED? NO; REVIEW REQ? YES
--- NOTE | 2016-09-19 17:31 | DIAGNOSTIC IMAGING REPORT ---
SINGLE VIEW CHEST CLINICAL HISTORY: Dyspnea. FINDINGS: An AP, portable, upright chest radiograph is compared to study dated 09/02/2016 and correlated with chest CT dated 02/06/2008. The examination is degraded by portable technique and patient rotation. A right PICC line is in place. The tip of the catheter projects over the SVC. The patient is status post midline sternotomy and cardiac valve surgery. The heart is enlarged and there is atherosclerotic calcification of the thoracic aorta. There is pulmonary vascular congestion. Multifocal airspace opacities are identified. Small pleural effusions are seen. No pneumothorax is seen. The skeletal structures are osteopenic. The bony thorax is grossly intact. IMPRESSION: 1. Cardiomegaly with evidence of congestive failure. 2. Multifocal bilateral airspace opacities likely represent interstitial edema. Correlate clinically for evidence of superimposed pneumonia. Radiographic follow-up to resolution is recommended. 3. Small pleural effusions. Electronically signed by: Julian Hernández M.D. 09/19/2016 5:30 PM Dictated Date/Time: 09/19/2016 5:28 PM
[2016-09-19 17:40] LABS: URINE PATH CASTS 0-3 GRANULAR CASTS /lpf (0)
[2016-09-19] MEDS ORDERED: ACETAMINOPHEN 325 MG SUPP PR STA (17:42)
[2016-09-19] MEDS ORDERED: SODIUM CHLORIDE 0.9% 1000ML 1,000 ML IV SCH (18:12)
[2016-09-19] MEDS ORDERED: ALBUT/IPRATROP 3MG/0.5MG NEB 3 ML VIAL INH PRN (18:15)
[2016-09-19] MEDS ORDERED: ACETAMINOPHEN 325 MG TAB PO PRN (18:15)
[2016-09-19 18:33] LABS: ARTERIAL BLD GAS O2 SATURATION 94.8 % (90-95); ARTERIAL BLOOD GAS BASE EXCESS -1.2 mEq/L (-9-1.8); ARTERIAL BLOOD GAS HCO3 21 mmol/L (19-24); ARTERIAL BLOOD GAS PO2 94 mm/Hg (80-95)
[2016-09-19 18:34] LABS: ALLEN TEST POS (POS); ARTERIAL BLOOD GAS pH 7.52 (7.35-7.45); O2 ADMINISTRATION 40 % O2
--- NOTE | 2016-09-19 18:56 | EMERGENCY ROOM VISIT NOTE ---
History Report prepared by Pattie: Walter Hinson Under the Supervision of: Dr. Ching Thompson D.O. First contact with patient: 15:38 Chief Complaint: SHORTNESS OF BREATH Stated Complaint: SOB, FEVER Nursing Triage Summary: SOB today. Patient came via ALS from [facility]. Family states patient has had a "mild pneumonia" for several days. Today patient became increasing SOB and febrile at [facility]. Patient complains of no pain at this time. History of Present Illness The patient is a 86 year old male who presents to the Emergency Room by EMS with complaints of worsening shortness of breath beginning today. He was referred to the ED from [facility] for increased SOB and a fever. He has been treated for pneumonia for about a week. The patient also has increased leg swelling. He denies any recent diarrhea. Per family, the patient has been struggling with cellulitis of his legs. They note that the patient had septic arthritis recently as well. They state that the patient has been in and out of the hospital for the past month. The patient's family believes the patient had an episode of vomiting earlier this week. The patient has a history of WI, valve replacement, and CABG x2. He is on aspirin but denies using any other blood thinners. He has no history of breathing difficulties. HPI limited secondary to respiratory distress. Source of History: patient History Limited By: other (respiratory distress) Onset: Today Quality: other (shortness of breath) Timing: worsening Modifying Factors (Relieving): other (none) Associated Symptoms: + fevers, + SOB, + vomiting, No diarrhea Note: The patient also has increased leg swelling. Review of Systems ROS limited secondary to respiratory distress. Past Medical & Surgical Medical Problems: (1) Aortic stenosis (2) Atrial fibrillation (3) Carotid arterial disease (4) CKD (chronic kidney disease), stage III (5) Diabetes mellitus, type 2 (6) Diabetic peripheral neuropathy associated with type 2 diabetes mellitus (7) Dyslipidemia (8) Effusion, left knee (9) History of adenomatous polyp of colon (10) History of diabetic ulcer of foot (11) Hypertension (12) Peripheral vascular disease (13) Rheumatoid arthritis (14) Septic joint of left knee joint (15) SOB (shortness of breath) Surgical Problems: (1) Status post amputation of toe of right foot (2) Status post aortic valve replacement with bioprosthetic valve (3) Status post cardiac catheterization (4) Status post cataract extraction (5) Status post cholecystectomy (6) Status post coronary artery bypass grafting Family History Cancer BROTHER SISTER Coronary artery disease FATHER Kidney disease BROTHER Social History Smoking Status: Former Smoker Drug Use: none Marital Status: Occupation Status: retired Current/Historical Medications Scheduled Aspirin Enteric Coated (Ecotrin Or Generic), 81 MG PO QAM Cholecalciferol (Vitamin D3), 2,000 UNITS PO DAILY Daptomycin (Daptomycin), 500 MG IV Q2D Docusate Sodium (Colace), 1 CAP PO BID Ertapenem Sodium (Invanz), 1 GM IV DAILY Ferrous Sulfate (Kp Ferrous Sulfate), 1 TAB PO BID Fluconazole (Fluconazole), 100 MG PO DAILY Folic Acid (Folvite), 1 MG PO DAILY Furosemide (Lasix), 20 MG PO QAM Insulin Aspart (Novolog), 1 DOSE SC ACHS Insulin Aspart (Novolog), 5 UNITS SC DAILY Insulin Aspart (Novolog), 10 UNITS SC QPM Insulin Glargine (Lantus), 12 UNITS SC DAILY Ipratropium-Albuterol (Duoneb), 1 TREATMENT INH TID Levofloxacin (Levaquin), 250 MG PO DAILY Metoprolol Tartrate (Lopressor) (Lopressor), 25 MG PO BID Multivitamins/Minerals (Mvi With Minerals), 1 TAB PO DAILY Potassium Chloride (Micro-K Ext Rel), 10 MEQ PO DAILY Scheduled PRN Acetaminophen (Tylenol), 500 MG PO Q4 PRN for Mild Pain Polyethylene Glycol 3350 (Miralax), 17 GM PO DAILY PRN for Constipation Sennosides-Docusate Sodium (Senna-S), 1 TAB PO Q24H PRN for Constipation Allergies Coded Allergies: HERMAN Inhibitors (Unverified Allergy, Intermediate, UNKNOWN, 09/19/16) Lisinopril (Unverified Allergy, Unknown, COUGHING, 08/20/16) Physical Exam Vital Signs Date Time Temp Pulse Resp B/P (MAP) Pulse Ox O2 Delivery O2 Flow Rate FiO2 09/19/16 18:53 39.3 92 18 134/61 98 BiPAP 09/19/16 18:14 40.0 103 18 130/63 100 BiPAP 09/19/16 17:04 88 24 152/77 99 BiPAP 7/2/17 15:54 95 24 98 BiPAP 40 09/19/16 15:54 95 98 40 09/19/16 15:30 39.3 94 28 169/86 94 Non-Rebreather 6.0 09/19/16 15:30 94 Nasal Cannula 6.0 Physical Exam GENERAL: Ill appearing, moderate distress, pale. EYE EXAM: normal conjunctiva, PERRL and EOM's grossly intact OROPHARYNX: no exudate, no erythema, lips, buccal mucosa, and tongue normal and mucous membranes are dry NECK: supple, no nuchal rigidity, no adenopathy, non-tender LUNGS: Rales and rhonchi on the right side. Left side has slight rales. HEART: Irregular rhythm with a tachycardic rate. ABDOMEN: abdomen soft, non-tender, normo-active bowel sounds, no masses, no rebound or guarding. BACK: Back is symmetrical on inspection and there is no deformity, no midline tenderness, no CVA tenderness. SKIN: no rashes and no bruising UPPER EXTREMITIES: upper extremities are grossly normal. LOWER EXTREMITIES: 3+ lower extremity edema. Left third toe has a bandage on it. NEURO EXAM: Awake, alert, moves all extremities. Medical Decision & Procedures ER Provider Diagnostic Interpretation: Radiology results have been interpreted by the radiologist and reviewed by me. SINGLE VIEW CHEST FINDINGS: An AP, portable, upright chest radiograph is compared to study dated 09/02/2016 and correlated with chest CT dated 02/06/2008. The examination is degraded by portable technique and patient rotation. A right PICC line is in place. The tip of the catheter projects over the SVC. The patient is status post midline sternotomy and cardiac valve surgery. The heart is enlarged and there is atherosclerotic calcification of the thoracic aorta. There is pulmonary vascular congestion. Multifocal airspace opacities are identified. Small pleural effusions are seen. No pneumothorax is seen. The skeletal structures are osteopenic. The bony thorax is grossly intact. IMPRESSION: 1. Cardiomegaly with evidence of congestive failure. 2. Multifocal bilateral airspace opacities likely represent interstitial edema. Correlate clinically for evidence of superimposed pneumonia. Radiographic follow-up to resolution is recommended. 3. Small pleural effusions. Electronically signed by: Julian Hernández M.D. Laboratory Results Test 09/19/16 15:35 09/19/16 15:43 09/19/16 16:45 09/19/16 18:25 Blood Smear Review Red Blood Cell Morphology Unremarkable Prothrombin Time 13.8 SECONDS (9.0-12.0) Prothromb Time International Ratio 1.3 (0.9-1.1) Pro-B-Type Natriuretic Peptide > 28599 pg/ml (0-1800) Globulin 5.9 gm/dl (2.5-4.0) Albumin/Globulin Ratio 0.4 (0.9-2) Lipase 55 U/L (73-393) Thyroid Stimulating Hormone (TSH) 1.240 uIu/ml (0.300-4.500) Bedside Lactic Acid Venous 2.12 mmol/L (0.90-1.70) Urine Color YELLOW Urine Appearance CLOUDY (CLEAR) Urine pH 5.0 (4.5-7.5) Urine Specific [place] 1.020 (1.000-1.030) Urine Protein 1+ (NEG) Urine Glucose (UA) NEG (NEG) Urine Ketones NEG (NEG) Urine Occult Blood NEG (NEG) Urine Nitrite NEG (NEG) Urine Bilirubin NEG (NEG) Urine Urobilinogen NEG (NEG) Urine Leukocyte Esterase NEG (NEG) Urine WBC (Auto) 10-30 /hpf (0-5) Urine RBC (Auto) 0-4 /hpf (0-4) Urine Hyaline Casts (Auto) 5-10 /lpf (0-5) Urine Epithelial Cells (Auto) >30 /lpf (0-5) Urine Bacteria (Auto) NEG (NEG) Urine Renal Epithelial Cells 5-10 /lpf (0-5) Urine Pathogenic Casts 0-3 GRANULAR CASTS /lpf (0) Urine Yeast (Auto) PRESENT (NONE PRSENT) Arterial Blood pH 7.52 (7.35-7.45) Arterial Blood Partial Pressure CO2 27 mmHg (35-46) Arterial Blood Partial Pressure O2 94 mm/Hg (80-95) Arterial Blood HCO3 21 mmol/L (19-24) Arterial Blood Oxygen Saturation 94.8 % (90-95) Arterial Blood Base Excess -1.2 mEq/L (-9-1.8) Arterial Blood Gas Delivery 40 % O2 Ed Test POS (POS) Laboratory results per my review. Medications Administered Medications (Trade) Dose Ordered Sig/Rosemarie Route Start Time Stop Time Status Last Admin Dose Admin Lorazepam (Ativan Inj) 0.25 mg NOW STAT IV 09/19/16 16:04 09/19/16 16:05 DC 09/19/16 16:20 0.25 MG Vancomycin HCl (Vancomycin 1gm/ 270ml Nss) 1 gm NOW STAT IV 09/19/16 16:29 09/19/16 16:34 DC 09/19/16 17:48 1 GM Levofloxacin (Levaquin / D5W) 750 mg NOW ONCE IV 09/19/16 16:30 09/19/16 16:34 DC 09/19/16 17:07 750 MG Piperacillin Sod/ Tazobactam Sod (Zosyn Iv) 3.375 gm NOW STAT IV 09/19/16 16:29 09/19/16 16:34 DC 09/19/16 17:11 3.375 GM Furosemide (Lasix Inj) 40 mg STK-MED ONCE .ROUTE 09/19/16 17:02 09/19/16 17:03 DC 09/19/16 17:06 40 MG Acetaminophen (Tylenol Supp) 975 mg NOW STAT AR 09/19/16 17:42 09/19/16 17:44 DC 09/19/16 18:07 975 MG Sodium Chloride 1,000 ml @ 60 mls/hr [id number] IV 09/19/16 18:12 09/20/16 10:38 DC 09/19/16 20:59 60 MLS/HR ECG Indication: SOB/dyspnea Rate (beats per minute): 100 Rhythm: atrial fibrillation Findings: no acute ischemic change, other (LAD. Normal QRS. Normal QTC. Erratic baseline.) ED Course 1539: The patient was evaluated in room C9. A complete history and physical exam was performed. 1600: I reassessed the patient. He is now on BiPAP and his work of breathing has improved. He appears a little agitated from the mask. 1604: Ordered Ativan Inj 0.25 mg IV. 1629: Ordered Zosyn 3.375 gm IV, Vancomycin 1 gm/270 mL NSS 1 gm IV, Levaquin / D5W 750 mg IV. 1638: Ordered Furosemide 40 mg/Syringe 4 mL @ 4 mL/min IV. 1651: I checked in on the patient. He is resting. 1733: I reassessed the patient. He appears comfortable. 1739: Upon reevaluation, the patient is resting comfortably. I discussed the findings and the treatment plan with the patient. He expresses agreement and understanding. I spoke with Dr. Luis of the [facility] Hospitalist Service. The patient will be evaluated for further management. 1814: Dr. Luis now bedside vitamin patient. Updated him on discussion with Dr. Gross. 1844: Patient still appears improved on BiPAP, vital signs stable. Medical Decision Differential diagnosis: Etiologies such as infections, reactive airway disease, pneumonia, pneumothorax , COPD, CHF, cardiac ischemia, pulmonary embolism, musculoskeletal, gastrointestinal, as well as others were entertained. Blood pressure screening: Patient was found to have an elevated blood pressure and was referred to their primary doctor for recheck and further treatment. Medication Reconciliation: I attest that I have personally reviewed the patient' s current medication list. Patient very ill-appearing with increased work of breathing, and nearly immediately placed on BiPAP. Patient with significant recent medical history and comorbidities including septic arthritis and anemia requiring transfusion. Patient had been rehabbing well until the last 2 days and he began to appear more ill and develop a cough. Patient found to have pneumonia as well as congestive heart failure. Patient improved here and vital signs improved with decreased work of breathing while on BiPAP. Patient and family kept up-to-date regarding all symptoms. Patient appeared to have waxing and waning confusion, likely secondary to significant illness. Patient covered for possible healthcare associated pneumonia, given Lasix to help with diuresis for his congestive heart failure. Discussed with both hospitalist and criminal investigator regarding appropriate disposition for the patient in the hospital. Patient sniffing and risk of deterioration and discuss CODE STATUS with the family at bedside. Consults Time Called: 173 Consulting Physician: Dr. Luis -Marilia Returned Call: [phone] I reviewed the patient's case with Dr. Luis. Marilia will evaluate the patient for further management. He recommends that intensive care be consulted as well. Additional Consults: Time Called: 1750 Consulted Physician: Dr. Gross -ICU Returned Call: [phone] Additional Comments: I reviewed the patient's case with Dr. Gross. Impression Primary Impression: Sepsis Additional Impressions: Pneumonia CHF (congestive heart failure) Anemia Acute on chronic renal failure Urinary retention Hypoxia Critical Care I have personally spent 60 minutes of critical care time in the direct management of this patient. This includes bedside care, interpretation of diagnostic studies, and testing, discussion with consultants, patient, and family members, and other required patient management activities. This 60 minutes is in excess of all separately billable procedures. Scribe Attestation The scribe's documentation has been prepared under my direction and personally reviewed by me in its entirety. I confirm that the note above accurately reflects all work, treatment, procedures, and medical decision making performed by me. Departure Information Dispostion Being Evaluated By Hospitalist Referrals Seng Narvaez III, M.D. (PCP) Patient Instructions My [facility] Problem Qualifiers Primary Impression: Sepsis Sepsis type: sepsis due to unspecified organism Qualified Codes: A41.9 - Sepsis, unspecified organism Additional Impressions: Pneumonia Pneumonia type: due to unspecified organism Laterality: bilateral Lung location: unspecified part of lung Qualified Codes: J18.9 - Pneumonia, unspecified organism CHF (congestive heart failure) Congestive heart failure type: unspecified congestive heart failure type Congestive heart failure chronicity: acute on chronic Qualified Codes: I50.9 - Heart failure, unspecified Anemia Anemia type: unspecified type Qualified Codes: D64.9 - Anemia, unspecified Acute on chronic renal failure Acute renal failure type: unspecified Chronic kidney disease stage: unspecified stage Qualified Codes: N17.9 - Acute kidney failure, unspecified; N18.9 - Chronic kidney disease, unspecified
[2016-09-19] MEDS ORDERED: DEXTROSE 50% 50 ML SYR IV PRN (19:15)
[2016-09-19] MEDS ORDERED: DOCUSATE SODIUM/SENNA 50/8.6MG TAB PO PRN (19:15)
[2016-09-19] MEDS ORDERED: GLUCOSE 10 TABS/TUBE PO PRN (19:15)
[2016-09-19] MEDS ORDERED: POLYETHYLENE (MIRALAX) 17 GM PACK PO PRN (19:15)
[2016-09-19] MEDS ORDERED: GLUCAGON FOR INJ 1 MG VIAL SQ PRN (19:15)
[2016-09-19] MEDS ORDERED: DAPTOmycin 500 MG VIAL IV SCH (19:15)
[2016-09-19] MEDS ORDERED: GLUCOSE 40% GEL 15 GM TUBE PO PRN (19:15)
[2016-09-19] MEDS ORDERED: PHARMACY GLYCEMIC MGMT CONSULT PRN (19:20)
--- NOTE | 2016-09-19 19:38 | History and Physical ---
History & Physical Date & Time of Service: Sep 19, 2016 at 19:37 Chief Complaint: Sob, Fever Primary Care Physician: Seng Narvaez III, M.D. History of Present Illness Source: patient, family Patient is an 86 yr male with PMH of CAD, chronic AF, bioprosthetic AVR, DM II , CKD III, RA, DHF, PAD and other problems who was recently discharged to [facility] after being treated for Left foot gangrene and septic arthritis presents from [facility] with history of worsening SOB, cough. Patient is a poor historian and family could not provide much history as well. According to the family, patient was thought to develop cough, SOB, wheezing since last and has progressively worsened since then. Patient was started on PO Levaquin in addition to the antibiotics he was discharged on (Dapto and Invanz) for septic arthritis for possible pneumonia per family. Today he was noted to be very "shaky" and was found to have fever and so was brought to ED for further evaluation. Family believes that he had an episode of vomiting earlier this week. Patient currently denies any chest pain, palpitations, dizziness, abd pain. Currently is on BiPAP and says he is feeling better. Past Medical/Surgical History Medical Problems: (1) Aortic stenosis Permanent Comment: s/p AVR Status: Chronic (2) Atrial fibrillation Status: Chronic (3) Carotid arterial disease Status: Chronic (4) CKD (chronic kidney disease), stage III Status: Chronic (5) Diabetes mellitus, type 2 Status: Chronic (6) Diabetic peripheral neuropathy associated with type 2 diabetes mellitus Status: Chronic (7) Dyslipidemia Status: Chronic (8) History of adenomatous polyp of colon Status: Chronic (9) History of diabetic ulcer of foot Status: Chronic (10) Hypertension Status: Chronic (11) Peripheral vascular disease Status: Chronic (12) Rheumatoid arthritis Status: Chronic Surgical Problems: (1) Status post amputation of toe of right foot Permanent Comment: right 2nd toe Status: Chronic (2) Status post aortic valve replacement with bioprosthetic valve Status: Chronic (3) Status post cardiac catheterization Status: Chronic (4) Status post cataract extraction Status: Chronic (5) Status post cholecystectomy Status: Chronic (6) Status post coronary artery bypass grafting Status: Chronic Family History Cancer BROTHER SISTER Coronary artery disease FATHER Kidney disease BROTHER Reviewed. Not relevant Social History Smoking Status: Former Smoker Alcohol Use: none Drug Use: none Marital Status: Occupational Status: retired Immunizations History of Influenza Vaccine: Yes History of Tetanus Vaccine?: Yes Tetanus Immunization Date: Feb 06, 2008 History of Pneumococcal: Yes Pneumococcal Date: Feb 06, 2008 History of Hepatitis B Vaccine: No Multi-Drug Resistant Organisms History of MDRO: No Allergies Coded Allergies: HERMAN Inhibitors (Unverified Allergy, Intermediate, UNKNOWN, 09/19/16) Lisinopril (Unverified Allergy, Unknown, COUGHING, 08/20/16) Home Medications Scheduled Aspirin Enteric Coated (Ecotrin Or Generic), 81 MG PO QAM Cholecalciferol (Vitamin D3), 2,000 UNITS PO DAILY Daptomycin (Daptomycin), 500 MG IV Q2D Docusate Sodium (Colace), 1 CAP PO BID Ertapenem Sodium (Invanz), 1 GM IV DAILY Ferrous Sulfate (Kp Ferrous Sulfate), 1 TAB PO BID Fluconazole (Fluconazole), 100 MG PO DAILY Folic Acid (Folvite), 1 MG PO DAILY Furosemide (Lasix), 20 MG PO QAM Insulin Aspart (Novolog), 1 DOSE SC ACHS Insulin Aspart (Novolog), 5 UNITS SC DAILY Insulin Aspart (Novolog), 10 UNITS SC QPM Insulin Glargine (Lantus), 12 UNITS SC DAILY Ipratropium-Albuterol (Duoneb), 1 TREATMENT INH TID Levofloxacin (Levaquin), 250 MG PO DAILY Metoprolol Tartrate (Lopressor) (Lopressor), 25 MG PO BID Multivitamins/Minerals (Mvi With Minerals), 1 TAB PO DAILY Potassium Chloride (Micro-K Ext Rel), 10 MEQ PO DAILY Scheduled PRN Acetaminophen (Tylenol), 500 MG PO Q4 PRN for Mild Pain Polyethylene Glycol 3350 (Miralax), 17 GM PO DAILY PRN for Constipation Sennosides-Docusate Sodium (Senna-S), 1 TAB PO Q24H PRN for Constipation Review of Systems See HPI for pertinent positives & negatives. A total of 10 systems reviewed and were otherwise negative. Physical Exam Vital Signs Date Time Temp Pulse Resp B/P (MAP) Pulse Ox O2 Delivery O2 Flow Rate FiO2 09/19/16 17:04 88 24 152/77 99 BiPAP 09/19/16 15:54 95 24 98 BiPAP 40 09/19/16 15:54 95 98 40 09/19/16 15:30 39.3 94 28 169/86 94 Non-Rebreather 6.0 09/19/16 15:30 94 Nasal Cannula 6.0 General Appearance: WD/WN, no apparent distress, + pertinent finding (Chronic ill appearing) Head: normocephalic, atraumatic Eyes: normal inspection, PERRL, sclerae normal ENT: normal ENT inspection, hearing grossly normal Neck: supple, trachea midline Respiratory/Chest: chest non-tender, no accessory muscle use, + pertinent finding (Rales and rhonchi R>L. ) Cardiovascular: no murmur, + irregularly irregular, + pertinent finding (+ B/L edema) Abdomen/GI: normal bowel sounds, non tender, soft Back: normal inspection Extremities/Musculoskelatal: normal inspection, + pedal edema, + pertinent finding (Left 3rd toe gangrenous ) Neurologic/Psych: wellness rn II-XII nml as tested, alert, normal mood/affect, + pertinent finding (Grossly no motor deficits) Skin: normal color, warm/dry Diagnostics Laboratory Results Results Past 24 Hours Test 09/19/16 15:35 09/19/16 15:43 09/19/16 16:45 09/19/16 17:45 Range/Units White Blood Count 15.43 4.8-10.8 K/uL Red Blood Count 2.97 4.7-6.1 M/uL Hemoglobin 8.5 14.0-18.0 g/dL Hematocrit 26.7 42-52 % Mean Corpuscular Volume 89.9 80-100 fL Mean Corpuscular Hemoglobin 28.6 25-34 pg Mean Corpuscular Hemoglobin Concent 31.8 32-36 g/dl Platelet Count 181 130-400 K/uL Mean Platelet Volume 10.1 7.4-10.4 fL Neutrophils (%) (Auto) 83.6 % Lymphocytes (%) (Auto) 4.9 % Monocytes (%) (Auto) 11.0 % Eosinophils (%) (Auto) 0.1 % Basophils (%) (Auto) 0.1 % Neutrophils # (Auto) 12.92 1.4-6.5 K/uL Lymphocytes # (Auto) 0.75 1.2-3.4 K/uL Monocytes # (Auto) 1.69 0.11-0.59 K/uL Eosinophils # (Auto) 0.01 0-0.5 K/uL Basophils # (Auto) 0.01 0-0.2 K/uL RDW Standard Deviation 58.4 36.4-46.3 fL RDW Coefficient of Variation 17.8 11.5-14.5 % Immature Granulocyte % (Auto) 0.3 % Immature Granulocyte # (Auto) 0.05 0.00-0.02 K/uL Red Blood Cell Morphology Unremarkable Prothrombin Time 13.8 9.0-12.0 SECONDS Prothromb Time International Ratio 1.3 0.9-1.1 Sodium Level 137 136-145 mmol/L Potassium Level 3.8 3.5-5.1 mmol/L Chloride Level 101 98-107 mmol/L Carbon Dioxide Level 25 21-32 mmol/L Anion Gap 11.0 3-11 mmol/L Blood Urea Nitrogen 46 7-18 mg/dl Creatinine 1.90 0.60-1.40 mg/dl Est Creatinine Clear Calc Drug Dose 30.5 ml/min Estimated GFR () 35.7 Estimated GFR (Non- 30.8 BUN/Creatinine Ratio 24.0 10-20 Random Glucose 160 70-99 mg/dl Calcium Level 8.5 8.5-10.1 mg/dl Magnesium Level 1.9 1.8-2.4 mg/dl Total Bilirubin 0.5 0.2-1 mg/dl Aspartate Amino Transf (AST/SGOT) 30 15-37 U/L Alanine Aminotransferase (ALT/SGPT) 29 12-78 U/L Alkaline Phosphatase 85 45-117 U/L Troponin I 0.027 0-0.045 ng/ml Pro-B-Type Natriuretic Peptide > 14510 0-1800 pg/ml Total Protein 8.0 6.4-8.2 gm/dl Albumin 2.1 3.4-5.0 gm/dl Globulin 5.9 2.5-4.0 gm/dl Albumin/Globulin Ratio 0.4 0.9-2 Lipase 55 73-393 U/L Thyroid Stimulating Hormone (TSH) 1.240 0.300-4.500 uIu/ml Bedside Lactic Acid Venous 2.12 0.90-1.70 mmol/L Urine Color YELLOW Urine Appearance CLOUDY CLEAR Urine pH 5.0 4.5-7.5 Urine Specific [place] 1.020 1.000-1.030 Urine Protein 1+ NEG Urine Glucose (UA) NEG NEG Urine Ketones NEG NEG Urine Occult Blood NEG NEG Urine Nitrite NEG NEG Urine Bilirubin NEG NEG Urine Urobilinogen NEG NEG Urine Leukocyte Esterase NEG NEG Urine WBC (Auto) 10-30 0-5 /hpf Urine RBC (Auto) 0-4 0-4 /hpf Urine Hyaline Casts (Auto) 5-10 0-5 /lpf Urine Epithelial Cells (Auto) >30 0-5 /lpf Urine Bacteria (Auto) NEG NEG Urine Renal Epithelial Cells 5-10 0-5 /lpf Urine Pathogenic Casts 0-3 GRANULAR CASTS 0 /lpf Urine Yeast (Auto) PRESENT NONE PRSENT Bedside Glucose 220 70-99 mg/dl Test 09/19/16 18:25 Range/Units Arterial Blood pH 7.52 7.35-7.45 Arterial Blood Partial Pressure CO2 27 35-46 mmHg Arterial Blood Partial Pressure O2 94 80-95 mm/Hg Arterial Blood HCO3 21 19-24 mmol/L Arterial Blood Oxygen Saturation 94.8 90-95 % Arterial Blood Base Excess -1.2 -9-1.8 mEq/L Arterial Blood Gas Delivery 40 % O2 Ed Test POS POS Microbiology Results 09/19/16 Blood Culture, Received Pending 09/19/16 Blood Culture, Received Pending 09/19/16 Urine Culture, Received Pending Diagnostic Radiology CXR: 1. Cardiomegaly with evidence of congestive failure. 2. Multifocal bilateral airspace opacities likely represent interstitial edema. Correlate clinically for evidence of superimposed pneumonia. Radiographic follow-up to resolution is recommended. 3. Small pleural effusions. EKG EKG: Atrial fibrillation, Normal QTC Impression Assessment and Plan Acute Respiratory Failure: Likely multifactorial: HCAP, Insetting of Diastolic Heart failure, Chronic Afib with RVR, ? Aspiration Sepsis and Lactic acidosis: Admit in ICU Start on broad spectrum antibiotics Blood/Urine cultures Duonebs PRN, Respiratory support with BIPAP Consult [facility] Trend lactate levels Gentle IVF as patient has Diastolic Heart failure, 2-3+ pedal renée Hold diuretics for now Will consult ID ABG consistent with acute respiratory alkalosis. Will defer to [facility] for further management Aspiration/Fall precautions Possible metabolic encephalopathy: Secondary to above CT head:pending PAD with L 3rd toe gangrene: Continue IV Daptomycin, Zosyn ID and Vacular surgery consulted Planned for amputation of toe eventually Chronic diastolic heart failure: Hold diuretics while being treated for sepsis Chronic afib with RVR: Rate is currently controlled Continue BB Not on chronic anticoagulation( discontinued previously secondary to epistaxis and unsteady gait) CKD III: Cr seemed to at baseline Monitor renal function avoid nephrotoxic agents CAD: Denies chest pain, continue home meds Statin held since on Daptomycin DM II: Continue ISS, Lantus DVT Px: Heparin SQ Code Status: DNR/DNI: Discussed with patient's DPOA (Daughter) Disposition: Monitor in ICU VTE Prophylaxis VTE Risk Assessment Done? Y/N: Yes Risk Level: Moderate
[2016-09-19] MEDS ORDERED: PIPERACILL/TAZOBAC CONSULT ACTIVE PRN (20:16)
--- NOTE | 2016-09-19 20:23 | DIAGNOSTIC IMAGING REPORT ---
CT SCAN OF THE BRAIN WITHOUT IV CONTRAST CLINICAL HISTORY: Change in mental status. COMPARISON STUDY: No priors. TECHNIQUE: Unenhanced axial CT scan of the brain is performed from the vertex to the skull base. The patient was scanned twice due to motion artifact. CT DOSE: 1228.53 mGy.cm FINDINGS: Brain parenchyma: There are age-related involutional changes noting moderate patchy subcortical and periventricular microangiopathic change. 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 There is no hemorrhage, mass effect, or evidence of acute territorial ischemia by CT criteria. Plata-white matter is preserved. No extra-axial fluid collection is seen. Ventricles, sulci, cisterns: Prominent secondary to involutional change. Intracranial vasculature: There is atherosclerotic calcification of the cavernous carotid and vertebral arteries. Calvarium: Unremarkable. Sinuses and mastoids: The visualized paranasal sinuses are clear. The mastoid air cells are well pneumatized. Orbits: The bony orbits are grossly intact. There are bilateral ocular lens implants. IMPRESSION: Senescent changes as above with no hemorrhage, mass effect, or evidence of acute territorial ischemia by CT criteria. Electronically signed by: Julian Hernández M.D. 09/19/2016 8:21 PM Dictated Date/Time: 09/19/2016 8:19 PM
[2016-09-19] MEDS ORDERED: LEVOFLOXACIN CONSULT ACTIVE PRN (20:30)
[2016-09-19] MEDS ORDERED: DAPTOMYCIN CONSULT ACTIVE PRN ×2 (20:30)
--- NOTE | 2016-09-19 20:55 | Critical Care Consultation ---
Critical Care Consultation Date of Consultation: Sep 19, 2016. Attending Physician: Marilia Lutz Service Reason for Consultation: Sepsis History of Present Illness This is an 86-year-old gentleman with multiple medical problems who was brought to the emergency department from [facility] secondary to shortness of breath and hypoxia.he was recently hospitalized at [facility] between August 20 and September 04 of this year. At that time he had left foot gangrene , left lower extremity cellulitis and he underwent endarterectomy with patch of the left lower extremity. He also had septic arthritis of the left knee and underwent irrigation and debridement which grew micrococcus. He was followed by the infectious disease service and was discharged on a 28 day course of ertapenem and daptomycin which he has continued at the skilled facility. He is not a very good historian. He reports shortness of breath and a productive cough for the past day or so. He had an episode of nausea and vomiting 1 or 2 days ago as well. He denies chest pain, hemoptysis, abdominal pain. At the skilled facility today he started to have wheezing, chills, productive cough and increasing oxygen requirements. He was given a DuoNeb and transferred to the emergency department. He was started on Levaquin on September 16 in addition to his ertapenem and daptomycin. He was also started on fluconazole on September 14. In the emergency department he was given Ativan 0.25 mg, vancomycin, Levaquin, Zosyn, Lasix 40 mg and BiPAP. Presently he is not on his BiPAP. Chest x-ray was concerning for multifocal pneumonia and pulmonary edema. He was also febrile to 40C. He has a single-lumen right upper extremity PICC line which was likely placed between September 01 and - not yet verified. He requested DO NOT RESUSCITATE CODE STATUS at [facility] on September 05. Past Medical/Surgical History Chronic atrial fibrillation, not on anticoagulation secondary to epistaxis and unsteady gait Hypertension Diabetes mellitus type 2, insulin-requiring Chronic kidney disease, baseline creatinine 1.6, discharge creatinine on September 04 2.2 Anemia, discharge hemoglobin was 8.4. Rheumatoid arthritis Peripheral vascular disease Hyperlipidemia Retinopathy Coronary artery disease Status post amputation of the right second toe Aortic valve replacement Right femoropopliteal to DP bypass 2003 Cataract extractions Cholecystectomy Coronary artery bypass graft surgery 2 vessels Family History Cancer BROTHER SISTER Coronary artery disease FATHER Kidney disease BROTHER Social History Smoking Status: Former Smoker Drug Use: none Marital Status: Occupation Status: retired Allergies Coded Allergies: HERMAN Inhibitors (Unverified Allergy, Intermediate, UNKNOWN, 09/19/16) Lisinopril (Unverified Allergy, Unknown, COUGHING, 08/20/16) Home Medications Scheduled Aspirin Enteric Coated (Ecotrin Or Generic), 81 MG PO QAM Cholecalciferol (Vitamin D3), 2,000 UNITS PO DAILY Daptomycin (Daptomycin), 500 MG IV Q2D Docusate Sodium (Colace), 1 CAP PO BID Ertapenem Sodium (Invanz), 1 GM IV DAILY Ferrous Sulfate (Kp Ferrous Sulfate), 1 TAB PO BID Fluconazole (Fluconazole), 100 MG PO DAILY Folic Acid (Folvite), 1 MG PO DAILY Furosemide (Lasix), 20 MG PO QAM Insulin Aspart (Novolog), 1 DOSE SC ACHS Insulin Aspart (Novolog), 5 UNITS SC DAILY Insulin Aspart (Novolog), 10 UNITS SC QPM Insulin Glargine (Lantus), 12 UNITS SC DAILY Ipratropium-Albuterol (Duoneb), 1 TREATMENT INH TID Levofloxacin (Levaquin), 250 MG PO DAILY Metoprolol Tartrate (Lopressor) (Lopressor), 25 MG PO BID Multivitamins/Minerals (Mvi With Minerals), 1 TAB PO DAILY Potassium Chloride (Micro-K Ext Rel), 10 MEQ PO DAILY Scheduled PRN Acetaminophen (Tylenol), 500 MG PO Q4 PRN for Mild Pain Polyethylene Glycol 3350 (Miralax), 17 GM PO DAILY PRN for Constipation Sennosides-Docusate Sodium (Senna-S), 1 TAB PO Q24H PRN for Constipation Current Inpatient Medications Current Inpatient Medications Medications (Trade) Dose Ordered Sig/Rosemarie Route Start Time Stop Time Status Last Admin Dose Admin Heparin Sodium (Porcine) (Heparin Sq 5000 Unit/0.5ml) 5,000 unit Q8H SQ 09/19/16 18:15 10/19/16 18:14 UNV Sodium Chloride 1,000 ml @ 60 mls/hr [id number] IV 09/19/16 18:12 10/19/16 18:11 Acetaminophen (Tylenol Tab) 650 mg Q4H PRN PO 09/19/16 18:15 10/19/16 18:14 UNV Albuterol/ Ipratropium (Duoneb) 3 ml Q6H PRN INH 09/19/16 18:15 10/19/16 18:14 UNV Miscellaneous Information (Pharmacy Consult) 1 ea NOW STAT N/A 09/19/16 19:06 09/19/16 19:07 UNV Insulin Aspart (novoLOG ASPART) SLIDING SCALE If C... Q6 SC 09/20/16 00:00 10/20/16 00:00 Glucose (Glucose 40% Gel) 15-30 GRAMS 15 GRAMS... UD PRN PO 09/19/16 19:15 10/19/16 19:14 Glucose (Glucose Chew Tab) 4-8 Tablets 4 Tabl... UD PRN PO 09/19/16 19:15 10/19/16 19:14 Dextrose (Dextrose 50% 50ML Syringe) 25-50ML OF 50% DW IV FOR... UD PRN IV 09/19/16 19:15 10/19/16 19:14 Glucagon (Glucagon Inj) 1 mg UD PRN SQ 09/19/16 19:15 10/19/16 19:14 Miscellaneous Information (Consult Glycemic Management Pharmacy) 1 ea UD PRN N/A 09/19/16 19:20 10/19/16 19:19 Aspirin (Ecotrin Tab) 81 mg QAM PO 09/20/16 09:00 10/20/16 08:59 UNV Daptomycin (Cubicin IV) 500 mg Q2D IV 09/19/16 19:15 09/26/16 19:14 UNV Docusate Sodium (coLACE CAP) 100 mg BID PO 09/19/16 21:00 10/19/16 20:59 UNV Folic Acid (Folvite Tab) 1 mg DAILY PO 09/20/16 09:00 10/20/16 08:59 UNV Insulin Glargine (Lantus Solostar Pen) 12 units DAILY SC 09/20/16 09:00 10/20/16 08:59 UNV Metoprolol Tartrate (Lopressor Tab) 25 mg BID PO 09/19/16 21:00 10/19/16 20:59 UNV Senna/Docusate Sodium (Senokot S Tab) 1 tab Q24H PRN PO 09/19/16 19:15 10/19/16 19:14 UNV Non-Formulary Medication (Cholecalciferol (Vitamin D3)) 2,000 units DAILY PO 09/20/16 09:00 10/20/16 08:59 UNV Non-Formulary Medication (Ferrous Sulfate (Kp Ferrous Sulfate)) 1 tab BID PO 09/19/16 21:00 10/19/16 20:59 UNV Non-Formulary Medication (Polyethylene Glycol 3350 (Miralax)) 17 gm DAILY PRN PO 09/19/16 19:15 10/19/16 19:14 UNV Review of Systems Review of systems is limited by the patient's difficulty hearing me and his shortness of breath. He denies headache, nausea vomiting, diarrhea, abdominal pain, focal weakness. He admits to generalized weakness. Physical Exam Date Time Temp Pulse Resp B/P (MAP) Pulse Ox O2 Delivery O2 Flow Rate FiO2 09/19/16 19:33 88 20 135/69 97 BiPAP 09/19/16 18:53 39.3 92 18 134/61 98 BiPAP 09/19/16 18:14 40.0 103 18 130/63 100 BiPAP 09/19/16 17:04 88 24 152/77 99 BiPAP 09/19/16 15:54 95 24 98 BiPAP 40 09/19/16 15:54 95 98 40 09/19/16 15:30 39.3 94 28 169/86 94 Non-Rebreather 6.0 09/19/16 15:30 94 Nasal Cannula 6.0 General: He is awake and alert, is in mild respiratory distress. HEENT: He has an area in the right iris which is dark brown. Both pupils are round. Tongue is midline, slightly dry. He wears an upper denture plate. Posterior pharynx clear. Lungs: Bilateral rales about prison up with occasional expiratory wheezing bilaterally. Occasional rhonchi. Heart: Irregularly irregular, no murmur noted. Abdomen: Soft, nondistended, nontender, active bowel sounds. Extremities: Warm, 1+ bilateral pretibial edema, gangrenous third toe of the left foot, 1+ dorsalis pedis pulses bilaterally, radial pulses 1+. Neuro: No facial droop, tongue midline, diffusely weak throughout on limited exam and definite focus signs. Laboratory Results Last 24 Hours Test 09/19/16 15:35 09/19/16 15:43 09/19/16 16:45 09/19/16 17:45 White Blood Count 15.43 K/uL Red Blood Count 2.97 M/uL Hemoglobin 8.5 g/dL Hematocrit 26.7 % Mean Corpuscular Volume 89.9 fL Mean Corpuscular Hemoglobin 28.6 pg Mean Corpuscular Hemoglobin Concent 31.8 g/dl Platelet Count 181 K/uL Mean Platelet Volume 10.1 fL Neutrophils (%) (Auto) 83.6 % Lymphocytes (%) (Auto) 4.9 % Monocytes (%) (Auto) 11.0 % Eosinophils (%) (Auto) 0.1 % Basophils (%) (Auto) 0.1 % Neutrophils # (Auto) 12.92 K/uL Lymphocytes # (Auto) 0.75 K/uL Monocytes # (Auto) 1.69 K/uL Eosinophils # (Auto) 0.01 K/uL Basophils # (Auto) 0.01 K/uL RDW Standard Deviation 58.4 fL RDW Coefficient of Variation 17.8 % Immature Granulocyte % (Auto) 0.3 % Immature Granulocyte # (Auto) 0.05 K/uL Red Blood Cell Morphology Unremarkable Prothrombin Time 13.8 SECONDS Prothromb Time International Ratio 1.3 Sodium Level 137 mmol/L Potassium Level 3.8 mmol/L Chloride Level 101 mmol/L Carbon Dioxide Level 25 mmol/L Anion Gap 11.0 mmol/L Blood Urea Nitrogen 46 mg/dl Creatinine 1.90 mg/dl Est Creatinine Clear Calc Drug Dose 30.5 ml/min Estimated GFR () 35.7 Estimated GFR (Non- 30.8 BUN/Creatinine Ratio 24.0 Random Glucose 160 mg/dl Calcium Level 8.5 mg/dl Magnesium Level 1.9 mg/dl Total Bilirubin 0.5 mg/dl Aspartate Amino Transf (AST/SGOT) 30 U/L Alanine Aminotransferase (ALT/SGPT) 29 U/L Alkaline Phosphatase 85 U/L Troponin I 0.027 ng/ml Pro-B-Type Natriuretic Peptide > 72533 pg/ml Total Protein 8.0 gm/dl Albumin 2.1 gm/dl Globulin 5.9 gm/dl Albumin/Globulin Ratio 0.4 Lipase 55 U/L Thyroid Stimulating Hormone (TSH) 1.240 uIu/ml Bedside Lactic Acid Venous 2.12 mmol/L Urine Color YELLOW Urine Appearance CLOUDY Urine pH 5.0 Urine Specific [place] 1.020 Urine Protein 1+ Urine Glucose (UA) NEG Urine Ketones NEG Urine Occult Blood NEG Urine Nitrite NEG Urine Bilirubin NEG Urine Urobilinogen NEG Urine Leukocyte Esterase NEG Urine WBC (Auto) 10-30 /hpf Urine RBC (Auto) 0-4 /hpf Urine Hyaline Casts (Auto) 5-10 /lpf Urine Epithelial Cells (Auto) >30 /lpf Urine Bacteria (Auto) NEG Urine Renal Epithelial Cells 5-10 /lpf Urine Pathogenic Casts 0-3 GRANULAR CASTS /lpf Urine Yeast (Auto) PRESENT Bedside Glucose 220 mg/dl Test 09/19/16 18:25 Arterial Blood pH 7.52 Arterial Blood Partial Pressure CO2 27 mmHg Arterial Blood Partial Pressure O2 94 mm/Hg Arterial Blood HCO3 21 mmol/L Arterial Blood Oxygen Saturation 94.8 % Arterial Blood Base Excess -1.2 mEq/L Arterial Blood Gas Delivery 40 % O2 Ed Test POS Diagnostic Results SINGLE VIEW CHEST 09/19/2016 CLINICAL HISTORY: Dyspnea. FINDINGS: An AP, portable, upright chest radiograph is compared to study dated 09/02/2016 and correlated with chest CT dated 02/06/2008. The examination is degraded by portable technique and patient rotation. A right PICC line is in place. The tip of the catheter projects over the SVC. The patient is status post midline sternotomy and cardiac valve surgery. The heart is enlarged and there is atherosclerotic calcification of the thoracic aorta. There is pulmonary vascular congestion. Multifocal airspace opacities are identified. Small pleural effusions are seen. No pneumothorax is seen. The skeletal structures are osteopenic. The bony thorax is grossly intact. IMPRESSION: 1. Cardiomegaly with evidence of congestive failure. 2. Multifocal bilateral airspace opacities likely represent interstitial edema. Correlate clinically for evidence of superimposed pneumonia. Radiographic follow-up to resolution is recommended. 3. Small pleural effusions. EKG will be reviewed. Report from emergency department EKG was reviewed. Assessment & Plan 1. Severe sepsis, he has a fever, was tachycardic and is hypoxemic. This may be secondary to pneumonia from aspiration or an infected PICC line. I don't see any skin changes to suggest cellulitis. Abdomen is benign. 2. Acute hypoxemic respiratory failure and respiratory alkalosis, started on Levaquin September 16. 3. Acute kidney injury on chronic kidney disease 4. Anemia, stable compared to his discharge hemoglobin on September 04, no signs of acute blood loss 5. History of diastolic dysfunction 6. Recent treatment for micrococcus in joint fluid as well as left lower extremity cellulitis with gangrene of the third toe. He has been on daptomycin and ertapenem since discharge on September 04 7. Diabetes mellitus with hyperglycemia 8. Chronic atrial fibrillation, not anticoagulated secondary to epistaxis and unsteady gait 9. History of hypertension 10. DO NOT RESUSCITATE CODE STATUS Plan: Neuro: Continue to assess his neuro status frequently. Avoid benzodiazepines. Pulmonary: Bronchodilators, broad spectrum antibiotics, BiPAP as needed. Wean FiO2, sputum culture, follow-up chest x-ray in the morning. Cardiovascular: Continue aspirin, metoprolol. Hold on any additional diuretics , he may actually require fluids for his sepsis. Trend troponins. Trend lactic acid. GI: Nothing by mouth except for medications. IV proton pump inhibitor for GI prophylaxis. Bowel regimen. Infectious disease: Consult the infectious disease service. Continue ertapenem , daptomycin - add Zosyn. He had vancomycin x 1 in the ED. Discontinue PICC line and culture tip. Acetaminophen for fever. Sputum culture. Await further culture data. Renal: Adjust medications appropriately, avoid nephrotoxins. Heme: Subcutaneous heparin for DVT prophylaxis. Watch for signs of bleeding. Follow H&H. Endocrine: Glycemic consult. Critical Care time 60 minutes.
[2016-09-19] MEDS: PIPERACILL/TAZOBAC IV 4.5 GM in DEXTROSE 5% 100ML IV SCH (21:00)
[2016-09-19 21:01] VITALS: BP 118/65; PULSE 85
--- NOTE | 2016-09-19 21:03 | Pharmacy Progress Note ---
Pharmacy Progress Note Date of Service Sep 19, 2016. Progress Note Regarding Pharmacy Consultations: IV antibiotics for the treatment of HAP (in addition to home treatment of gangrene foot): * Daptomycin and ertapenem IV, levofloxacin and fluconazole PO ACCOUNTING MANAGER ASSISTANT CONTROLLER * On admission: Daptomycin IV (for continuation of outpatient therapy) + Zosyn IV (for pseudomonal coverage for HAP) * CPK level in AM * Blood and urine cultures pending * ID consulted Glycemic control: * Known from prior admissions. * NPO at this time * Continue home Lantus dosing * NovoLog SQ q 6 hours since NPO * use parameters from prior admission * Goal 140-180mg/dL since critically ill- may consider lowering goal range since treating infection * A1c with AM labs Thank you for engaging the clinical pharmacy consult service in the care of this patient. Please let us know if we can be of further assistance.
[2016-09-19] MEDS: METOPROLOL TARTRATE 25 MG TAB PO SCH (21:04)
[2016-09-19] MEDS: DOCUSATE SODIUM 100 MG CAP PO SCH (21:04)
[2016-09-19] MEDS: FERROUS SULFATE 325 MG TAB PO SCH (21:04)
[2016-09-19] MEDS: INSULIN GLARGINE SOLOSTAR 100 UNITS/ML 3 ML PEN SC SCH (21:10)
[2016-09-19] MEDS: HEPARIN SOD 5000 UNIT/0.5 ML CARP SQ SCH (21:11)
[2016-09-19 21:30] VITALS: O2SAT 98
[2016-09-19 21:33] VITALS: BP 129/74; PULSE 87; TEMP 36.6; O2SAT 98; Ht 177.8 cm; Wt 81.1 kg
[2016-09-19 22:01] VITALS: BP 112/78; PULSE 85; O2SAT 98
[2016-09-19] MEDS: INSULIN ASPART 100 UNITS/ML 3 ML PEN SC SCH (23:31)
[2016-09-20] VITALS (16 sets, daily range): BP systolic 113–134; BP diastolic 47–69; PULSE 69–97; TEMP 36.4–37.1; O2SAT 93–100
[2016-09-20] MEDS: ALBUT/IPRATROP 3MG/0.5MG NEB 3 ML VIAL INH SCH ×4 (01:50→19:18)
[2016-09-20] MEDS: DAPTOMYCIN IV 500 MG in NSS 50ML IV SCH (05:11)
[2016-09-20] MEDS ORDERED: ONDANSETRON INJ 2 MG/ML 2 ML VIAL IV PRN (05:45)
[2016-09-20] MEDS: INSULIN ASPART 100 UNITS/ML 3 ML PEN SC SCH ×4 (06:00→20:21)
[2016-09-20] MEDS: PIPERACILL/TAZOBAC IV 4.5 GM in DEXTROSE 5% 100ML IV SCH ×3 (06:05→21:59)
[2016-09-20] MEDS: HEPARIN SOD 5000 UNIT/0.5 ML CARP SQ SCH ×3 (06:09→22:08)
--- NOTE | 2016-09-20 07:04 | DIAGNOSTIC IMAGING REPORT ---
CHEST ONE VIEW PORTABLE CLINICAL HISTORY: f/u infiltrates pneumonia COMPARISON STUDY: 09/19/2016 FINDINGS: Unchanging radiographic findings of pulmonary edema. Superimposed infiltrative change left apex and right base. Diaphragms are smooth. Very slight plantar left lateral costophrenic angle. Central catheter has been removed. IMPRESSION: Pulmonary edema with bilateral parenchymal infiltrates. No change from the prior exam. Electronically signed by: Morteza King M.D. 09/20/2016 7:03 AM Dictated Date/Time: 09/20/2016 7:02 AM
[2016-09-20 07:10] LABS: BUN/CREATININE RATIO 24.6 (10-20); CREATININE 1.7 mg/dl (0.60-1.40); MAGNESIUM 1.9 mg/dl (1.8-2.4); PHOSPHORUS 3.5 mg/dl (2.5-4.9); POTASSIUM 2.9 mmol/L (3.5-5.1)
[2016-09-20] MEDS: DOCUSATE SODIUM 100 MG CAP PO SCH ×2 (07:47→20:17)
[2016-09-20] MEDS: ASPIRIN 81 MG ECTAB PO SCH (07:47)
[2016-09-20] MEDS: FERROUS SULFATE 325 MG TAB PO SCH ×2 (07:47→20:13)
[2016-09-20] MEDS: METOPROLOL TARTRATE 25 MG TAB PO SCH ×2 (07:48→20:13)
[2016-09-20] MEDS: CHOLECALCIFEROL 1000 INTER.UNIT TAB PO SCH (07:48)
[2016-09-20 08:00] LABS: ESTIMATED AVERAGE GLUCOSE 140 mg/dl; HA1C FLAG Normal (Normal)
[2016-09-20 08:10] LABS: ANISOCYTOSIS PRESENT; BASO % 0.2 %; BASO ABS # 0.02 K/uL (0-0.2); COMPLETE YES; EOS % 0.1 %; HEMATOCRIT 23.2 % (42-52); HYPOCHROMIA PRESENT; IG% 0.3 %; LYMPH % 5.7 %; LYMPH ABS # 0.59 K/uL (1.2-3.4); MEAN CELL VOLUME 88.5 fL (80-100); MEAN CORPUSCULAR HGB CONC 32.8 g/dl (32-36); MEAN PLATELET VOLUME 10.6 fL (7.4-10.4); NEUT % 84.7 %; PLATELET COUNT 144 K/uL (130-400); POIKILOCYTOSIS PRESENT; RED BLOOD COUNT 2.62 M/uL (4.7-6.1); WHITE BLOOD COUNT 10.38 K/uL (4.8-10.8)
--- NOTE | 2016-09-20 10:13 | Medical Consult ---
Consultation Date of Consultation: Sep 20, 2016. 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 He was being treated with combination of IV daptomycin and ertapenem for gangrenous toe infection and septic arthritis pending potential amputation of left 3rd toe. He is now admitted with 1-2 day history of increasing shortness of breath, hypoxia, cough , and with chest x-ray, read by me, showing both congestive heart failure and possible superimposed pneumonia. Patient currently being treated with combination of daptomycin, Zosyn, and levofloxacin. Has improved since admission, less short of breath, no current fever. Blood cultures have been negative to date. Past Medical/Surgical History Medical Problems: (1) Acute on chronic renal failure Status: Acute (2) Anemia Status: Acute (3) Cellulitis of left leg Status: Acute (4) CHF (congestive heart failure) Status: Acute (5) Hypoxia Status: Acute (6) Left-sided epistaxis Status: Acute (7) Pneumonia Status: Acute (8) Sepsis Status: Acute (9) Urinary retention Status: Acute Medical Problems: (1) Aortic stenosis (2) Atrial fibrillation (3) Carotid arterial disease (4) CKD (chronic kidney disease), stage III (5) Diabetes mellitus, type 2 (6) Diabetic peripheral neuropathy associated with type 2 diabetes mellitus (7) Dyslipidemia (8) Effusion, left knee (9) History of adenomatous polyp of colon (10) History of diabetic ulcer of foot (11) Hypertension (12) Peripheral vascular disease (13) Rheumatoid arthritis (14) Septic joint of left knee joint (15) SOB (shortness of breath) Surgical Problems: (1) Status post amputation of toe of right foot (2) Status post aortic valve replacement with bioprosthetic valve (3) Status post cardiac catheterization (4) Status post cataract extraction (5) Status post cholecystectomy (6) Status post coronary artery bypass grafting Family History Cancer BROTHER SISTER Coronary artery disease FATHER Kidney disease BROTHER Social History Smoking Status: Never Smoker Alcohol Use: none Drug Use: none Marital Status: Occupation Status: retired Allergies Coded Allergies: HERMAN Inhibitors (Unverified Allergy, Intermediate, UNKNOWN, 09/19/16) Lisinopril (Unverified Allergy, Unknown, COUGHING, 08/20/16) Current Inpatient Medications Current Inpatient Medications Medications (Trade) Dose Ordered Sig/Rosemarie Route Start Time Stop Time Status Last Admin Dose Admin Heparin Sodium (Porcine) (Heparin Sq 5000 Unit/0.5ml) 5,000 unit Q8 SQ 09/19/16 22:00 10/19/16 18:14 09/20/16 06:09 5,000 UNIT Sodium Chloride 1,000 ml @ 60 mls/hr [id number] IV 09/19/16 18:12 10/19/16 18:11 09/19/16 20:59 60 MLS/HR Acetaminophen (Tylenol Tab) 650 mg Q4H PRN PO 09/19/16 18:15 10/19/16 18:14 Piperacillin Sod/ Tazobactam Sod (Consult) 1 ea UD PRN N/A 09/19/16 20:16 10/19/16 20:15 Insulin Aspart (novoLOG ASPART) SLIDING SCALE If C... Q6 SC 09/20/16 00:00 10/20/16 00:00 09/19/16 23:31 3 UNITS Glucose (Glucose 40% Gel) 15-30 GRAMS 15 GRAMS... UD PRN PO 09/19/16 19:15 10/19/16 19:14 Glucose (Glucose Chew Tab) 4-8 Tablets 4 Tabl... UD PRN PO 09/19/16 19:15 10/19/16 19:14 Dextrose (Dextrose 50% 50ML Syringe) 25-50ML OF 50% DW IV FOR... UD PRN IV 09/19/16 19:15 10/19/16 19:14 Glucagon (Glucagon Inj) 1 mg UD PRN SQ 09/19/16 19:15 10/19/16 19:14 Miscellaneous Information (Consult Glycemic Management Pharmacy) 1 ea UD PRN N/A 09/19/16 19:20 10/19/16 19:19 Aspirin (Ecotrin Tab) 81 mg QAM PO 09/20/16 09:00 10/20/16 08:59 09/20/16 07:47 81 MG Docusate Sodium (coLACE CAP) 100 mg BID PO 09/19/16 21:00 10/19/16 20:59 09/20/16 07:47 100 MG Folic Acid (Folvite Tab) 1 mg DAILY PO 09/20/16 09:00 10/20/16 08:59 09/20/16 07:47 1 MG Insulin Glargine (Lantus Solostar Pen) 12 units PM SC 09/19/16 21:00 10/19/16 20:59 09/19/16 21:10 12 UNITS Metoprolol Tartrate (Lopressor Tab) 25 mg BID PO 09/19/16 21:00 10/19/16 20:59 09/20/16 07:48 25 MG Senna/Docusate Sodium (Senokot S Tab) 1 tab Q24H PRN PO 09/19/16 19:15 10/19/16 19:14 Cholecalciferol (Vitamin D Tab) 2,000 inter.unit DAILY PO 09/20/16 09:00 10/20/16 08:59 09/20/16 07:48 2,000 INTER.UNIT Ferrous Sulfate (Feosol Tab) 325 mg BID PO 09/19/16 21:00 10/19/16 20:59 09/20/16 07:47 325 MG Polyethylene (Miralax Powder Packet) 17 gm DAILY PRN PO 09/19/16 19:15 10/19/16 19:14 Daptomycin (Consult) 1 ea UD PRN N/A 09/19/16 20:30 10/19/16 20:29 Daptomycin 500 mg/ Sodium Chloride 60 ml @ 120 mls/hr Q24H IV 09/20/16 06:00 09/27/16 23:59 09/20/16 05:11 120 MLS/HR Piperacillin Sod/ Tazobactam Sod 4.5 gm/Dextrose 120 ml @ 30 mls/hr Q8H IV 09/19/16 22:00 09/26/16 21:59 09/20/16 06:05 30 MLS/HR Pantoprazole Sodium 40 mg/ Syringe 10 ml @ 5 mls/min DAILY@11 IV 09/20/16 11:00 10/20/16 10:59 Albuterol/ Ipratropium (Duoneb) 3 ml Q6R INH 09/20/16 03:00 10/20/16 02:59 7/3/17 07:01 3 ML Ondansetron HCl (Zofran Inj) 4 mg Q6H PRN IV 09/20/16 05:45 10/20/16 05:44 Review of Systems Constitutional: + fever, + weakness, + fatigue Eyes: No problem reported ENT: No problem reported Respiratory: + cough, + shortness of breath, No hemoptysis Cardiovascular: No problem reported Abdomen: + nausea, + vomiting Musculoskeletal: No problem reported Genitourinary - Male: No problem reported Neurologic: + weakness, + balance problems Psychiatric: No problem reported Endocrine: No problem reported Hematologic / Lymphatic: No problem reported Integumentary: No problem reported Allergic / Immunologic: No problem reported Physical Exam Date Time Temp Pulse Resp B/P (MAP) Pulse Ox O2 Delivery O2 Flow Rate FiO2 09/20/16 10:00 70 20 113/62 (79) 98 Nasal Cannula 4.0 09/20/16 08:00 36.4 88 22 122/61 (81) 95 Nasal Cannula 4.0 09/20/16 08:00 95 Nasal Cannula 4.0 09/20/16 07:03 72 18 99 Nasal Cannula 4.0 09/20/16 06:00 78 20 114/47 (69) 98 Nasal Cannula 4.0 09/20/16 04:30 36.9 75 18 125/56 (79) 98 Nasal Cannula 4.0 09/20/16 04:30 100 Nasal Cannula 4.0 09/20/16 02:00 73 16 124/68 (86) 99 Nasal Cannula 4.0 09/20/16 01:50 71 18 93 4.0 09/20/16 00:01 36.6 69 20 117/59 (78) 100 Nasal Cannula 4.0 09/20/16 00:01 100 Nasal Cannula 4.0 09/19/16 22:01 85 112/78 (89) 98 09/19/16 21:33 36.6 87 20 129/74 98 Nasal Cannula 09/19/16 21:30 98 Nasal Cannula 4.0 09/19/16 21:01 85 118/65 (82) 09/19/16 19:33 88 20 135/69 97 BiPAP 09/19/16 18:53 39.3 92 18 134/61 98 BiPAP 09/19/16 18:14 40.0 103 18 130/63 100 BiPAP 09/19/16 17:04 88 24 152/77 99 BiPAP 09/19/16 15:54 95 24 98 BiPAP 40 09/19/16 15:54 95 98 40 09/19/16 15:30 39.3 94 28 169/86 94 Non-Rebreather 6.0 09/19/16 15:30 94 Nasal Cannula 6.0 General Appearance: WD/WN, no apparent distress Head: normocephalic, atraumatic Eyes: normal inspection, EOMI, sclerae normal ENT: normal ENT inspection, pharynx normal Neck: supple, no adenopathy, thyroid normal, trachea midline Respiratory/Chest: chest non-tender, no respiratory distress, no accessory muscle use, + rales, + rhonchi Cardiovascular: no gallop, no murmur, + irregularly irregular Abdomen/GI: normal bowel sounds, non tender, soft, no organomegaly Back: normal inspection, no CVA tenderness Extremities/Musculoskelatal: no calf tenderness, non-tender, + pertinent finding (gangrenous left 3rd toe) Neurologic/Psych: alert, oriented x 3 Skin: normal color, no rash Lymphatic: no adenopathy Laboratory Results Date/Time Source Procedure Growth Status 09/19/16 15:35 Blood Blood Culture Pending Received 09/19/16 15:32 Blood Blood Culture Pending Received 09/19/16 20:52 Nasal MRSA DNA Surveillance Screen - Final Specimen Negative for MRSA by DNA Probe Complete 09/19/16 16:45 Urine , Clean Catch Urine Culture - Preliminary YEAST Resulted 09/19/16 21:00 Catheter Tip Picc Line Catheter Tip Culture Pending Received Last 24 Hours Test 09/19/16 15:35 09/19/16 15:43 09/19/16 16:45 09/19/16 17:45 White Blood Count 15.43 K/uL Red Blood Count 2.97 M/uL Hemoglobin 8.5 g/dL Hematocrit 26.7 % Mean Corpuscular Volume 89.9 fL Mean Corpuscular Hemoglobin 28.6 pg Mean Corpuscular Hemoglobin Concent 31.8 g/dl Platelet Count 181 K/uL Mean Platelet Volume 10.1 fL Neutrophils (%) (Auto) 83.6 % Lymphocytes (%) (Auto) 4.9 % Monocytes (%) (Auto) 11.0 % Eosinophils (%) (Auto) 0.1 % Basophils (%) (Auto) 0.1 % Neutrophils # (Auto) 12.92 K/uL Lymphocytes # (Auto) 0.75 K/uL Monocytes # (Auto) 1.69 K/uL Eosinophils # (Auto) 0.01 K/uL Basophils # (Auto) 0.01 K/uL RDW Standard Deviation 58.4 fL RDW Coefficient of Variation 17.8 % Immature Granulocyte % (Auto) 0.3 % Immature Granulocyte # (Auto) 0.05 K/uL Blood Smear Review Red Blood Cell Morphology Unremarkable Prothrombin Time 13.8 SECONDS Prothromb Time International Ratio 1.3 Sodium Level 137 mmol/L Potassium Level 3.8 mmol/L Chloride Level 101 mmol/L Carbon Dioxide Level 25 mmol/L Anion Gap 11.0 mmol/L Blood Urea Nitrogen 46 mg/dl Creatinine 1.90 mg/dl Est Creatinine Clear Calc Drug Dose 30.5 ml/min Estimated GFR () 35.7 Estimated GFR (Non- 30.8 BUN/Creatinine Ratio 24.0 Random Glucose 160 mg/dl Calcium Level 8.5 mg/dl Magnesium Level 1.9 mg/dl Total Bilirubin 0.5 mg/dl Aspartate Amino Transf (AST/SGOT) 30 U/L Alanine Aminotransferase (ALT/SGPT) 29 U/L Alkaline Phosphatase 85 U/L Troponin I 0.027 ng/ml Pro-B-Type Natriuretic Peptide > 98272 pg/ml Total Protein 8.0 gm/dl Albumin 2.1 gm/dl Globulin 5.9 gm/dl Albumin/Globulin Ratio 0.4 Lipase 55 U/L Thyroid Stimulating Hormone (TSH) 1.240 uIu/ml Bedside Lactic Acid Venous 2.12 mmol/L Urine Color YELLOW Urine Appearance CLOUDY Urine pH 5.0 Urine Specific [place] 1.020 Urine Protein 1+ Urine Glucose (UA) NEG Urine Ketones NEG Urine Occult Blood NEG Urine Nitrite NEG Urine Bilirubin NEG Urine Urobilinogen NEG Urine Leukocyte Esterase NEG Urine WBC (Auto) 10-30 /hpf Urine RBC (Auto) 0-4 /hpf Urine Hyaline Casts (Auto) 5-10 /lpf Urine Epithelial Cells (Auto) >30 /lpf Urine Bacteria (Auto) NEG Urine Renal Epithelial Cells 5-10 /lpf Urine Pathogenic Casts 0-3 GRANULAR CASTS /lpf Urine Yeast (Auto) PRESENT Bedside Glucose 220 mg/dl Test 7/2/17 18:25 09/19/16 20:57 09/19/16 21:07 09/19/16 21:15 Arterial Blood pH 7.52 Arterial Blood Partial Pressure CO2 27 mmHg Arterial Blood Partial Pressure O2 94 mm/Hg Arterial Blood HCO3 21 mmol/L Arterial Blood Oxygen Saturation 94.8 % Arterial Blood Base Excess -1.2 mEq/L Arterial Blood Gas Delivery 40 % O2 Ed Test POS Lactic Acid Level 1.6 mmol/L Bedside Glucose 203 mg/dl Troponin I 0.066 ng/ml Test 09/19/16 23:24 09/20/16 06:07 09/20/16 06:09 09/20/16 06:20 Bedside Glucose 224 mg/dl 145 mg/dl White Blood Count 10.38 K/uL Red Blood Count 2.62 M/uL Hemoglobin 7.6 g/dL Hematocrit 23.2 % Mean Corpuscular Volume 88.5 fL Mean Corpuscular Hemoglobin 29.0 pg Mean Corpuscular Hemoglobin Concent 32.8 g/dl Platelet Count 144 K/uL Mean Platelet Volume 10.6 fL Neutrophils (%) (Auto) 84.7 % Lymphocytes (%) (Auto) 5.7 % Monocytes (%) (Auto) 9.0 % Eosinophils (%) (Auto) 0.1 % Basophils (%) (Auto) 0.2 % Neutrophils # (Auto) 8.80 K/uL Lymphocytes # (Auto) 0.59 K/uL Monocytes # (Auto) 0.93 K/uL Eosinophils # (Auto) 0.01 K/uL Basophils # (Auto) 0.02 K/uL RDW Standard Deviation 57.7 fL RDW Coefficient of Variation 17.7 % Immature Granulocyte % (Auto) 0.3 % Immature Granulocyte # (Auto) 0.03 K/uL Hypochromasia PRESENT Poikilocytosis PRESENT Anisocytosis PRESENT Sodium Level 140 mmol/L Potassium Level 2.9 mmol/L Chloride Level 103 mmol/L Carbon Dioxide Level 29 mmol/L Anion Gap 8.0 mmol/L Blood Urea Nitrogen 42 mg/dl Creatinine 1.70 mg/dl Est Creatinine Clear Calc Drug Dose 33.5 ml/min Estimated GFR () 40.8 Estimated GFR (Non- 35.2 BUN/Creatinine Ratio 24.6 Random Glucose 132 mg/dl Estimated Average Glucose 140 mg/dl Hemoglobin A1c 6.5 % Lactic Acid Level 1.1 mmol/L Calcium Level 8.0 mg/dl Phosphorus Level 3.5 mg/dl Magnesium Level 1.9 mg/dl Total Bilirubin 0.6 mg/dl Direct Bilirubin 0.2 mg/dl Aspartate Amino Transf (AST/SGOT) 21 U/L Alanine Aminotransferase (ALT/SGPT) 24 U/L Alkaline Phosphatase 68 U/L Total Creatine Kinase 41 U/L Troponin I 0.039 ng/ml Total Protein 6.9 gm/dl Albumin 1.8 gm/dl [~ rep ct add3]] CHEST ONE VIEW PORTABLE CLINICAL HISTORY: f/u infiltrates pneumonia COMPARISON STUDY: 09/19/2016 FINDINGS: Unchanging radiographic findings of pulmonary edema. Superimposed infiltrative change left apex and right base. Diaphragms are smooth. Very slight plantar left lateral costophrenic angle. Central catheter has been removed. IMPRESSION: Pulmonary edema with bilateral parenchymal infiltrates. No change from the prior exam. Electronically signed by: Morteza King M.D. 09/20/2016 7:03 AM Dictated Date/Time: 09/20/2016 7:02 AM The status of this report is Signed. Draft = Not yet reviewed or approved by Radiologist. Signed = Reviewed and approved by Radiologist. <AttendingPhy>Jennifer Zuluaga DO</AttendingPhy> <FamilyPhy>Seng Narvaez III, M.D.</FamilyPhy> <PrimaryPhy>Seng Narvaez III, M.D.</PrimaryPhy> < UnitNumber>[id number]</UnitNumber> <VisitNumber>[id number]</VisitNumber> < PatientName>MIGUEL GAFFNEY JR</PatientName> <DateOfBirth>1930</ DateOfBirth> <Location>[facility]</Location> <ServiceDate>09/19/16</ServiceDate> < MNE>ESINDI</MNE> <OrderingPhy>Ching Gross MD</OrderingPhy> <OrderingPhyMNE>f rep ord dr varela</OrderingPhyMNE> <DictatingPhyMNE>f rep dict dr varela</ DictatingPhyMNE> <CCListMNE>f rep ct mne</CCListMNE> <AdmittingPhyMNE>f pt admit dr varela</AdmittingPhyMNE> <AttendingPhyMNE>f pt attend dr varela</ AttendingPhyMNE> Assessment & Plan 86 yo male with diabetes with neuropathy, gangrenous left 3rd toe s/p revascularization, septic arthritis left knee with Micrococcus, now with pulmonary edema with superimposed pneumonia, possibly aspiration, with clinical response to current therapy. Will continue patient on present RX as will cover tratment of gangrenous toe. Await final culture results. Will follow.
[2016-09-20] MEDS ORDERED: PANTOprazole INJ 40 MG in SYRINGE 0 ML IV SCH (11:00)
[2016-09-20] MEDS ORDERED: NURSING VERBAL MED ORDER ONE (11:00)
[2016-09-20] MEDS ORDERED: PERFLUTREN LIPID MICROSPHERE (DEFINITY) IV ONE (11:24)
[2016-09-20] MEDS: FUROSEMIDE 20 MG TAB PO SCH (11:27)
[2016-09-20] MEDS: POTASSIUM CHLORIDE 10 MEQ TABCR PO SCH (11:27)
--- NOTE | 2016-09-20 11:54 | Pharmacy Progress Note ---
Glycemic Control Intl Consult Date of Service Sep 20, 2016. Scope Glycemic Pharmacist consulted by Dr Luis on 09/19/16 for glycemic control and to write orders per [facility] inpatient glycemic control protocol Objective Weight (Kilograms): 87.900 Accuchecks BSG (last 24hrs): Test 09/19/16 15:35 09/19/16 17:45 09/19/16 21:07 09/19/16 23:24 Random Glucose 160 mg/dl (70-99) Bedside Glucose 220 mg/dl (70-99) 203 mg/dl (70-99) 224 mg/dl (70-99) Test 09/20/16 06:07 09/20/16 06:20 Bedside Glucose 145 mg/dl (70-99) Random Glucose 132 mg/dl (70-99) Laboratory Data (last 24hrs) Test 09/19/16 15:35 09/20/16 06:20 Anion Gap 11.0 mmol/L 8.0 mmol/L BUN/Creatinine Ratio 24.0 24.6 Blood Urea Nitrogen 46 mg/dl 42 mg/dl Creatinine 1.90 mg/dl 1.70 mg/dl Potassium Level 3.8 mmol/L 2.9 mmol/L Sodium Level 137 mmol/L 140 mmol/L White Blood Count 15.43 K/uL 10.38 K/uL Red Blood Count 2.97 M/uL 2.62 M/uL Hemoglobin 8.5 g/dL 7.6 g/dL Hematocrit 26.7 % 23.2 % Mean Corpuscular Volume 89.9 fL 88.5 fL Mean Corpuscular Hemoglobin 28.6 pg 29.0 pg Mean Corpuscular Hemoglobin Concent 31.8 g/dl 32.8 g/dl Platelet Count 181 K/uL 144 K/uL Mean Platelet Volume 10.1 fL 10.6 fL Neutrophils (%) (Auto) 83.6 % 84.7 % Lymphocytes (%) (Auto) 4.9 % 5.7 % Monocytes (%) (Auto) 11.0 % 9.0 % Eosinophils (%) (Auto) 0.1 % 0.1 % Basophils (%) (Auto) 0.1 % 0.2 % Neutrophils # (Auto) 12.92 K/uL 8.80 K/uL Lymphocytes # (Auto) 0.75 K/uL 0.59 K/uL Monocytes # (Auto) 1.69 K/uL 0.93 K/uL Eosinophils # (Auto) 0.01 K/uL 0.01 K/uL Basophils # (Auto) 0.01 K/uL 0.02 K/uL Hemoglobin A1c 6.5 % HbA1c Test 09/20/16 06:20 Hemoglobin A1c 6.5 % (4.5-5.6) H Recent Pertinent Medications Outpatient Anti-diabetic Regimen: * Novolog SSI ACHS + 5 units with lunch and 10 units with supper * Lantus 12 units HS * A1c = 6.5 % 09/20/16 The patient is currently receiving: * Basal insulin: Lantus 12 units every 24 hours (2100) * Correctional Insulin: Novolog Correction per scale ACHS Goal Range: Low 140 mg/dL - High 180 mg/dL Correction Factor: 20 mg/dL/unit * Prandial insulin: Per carb ratio of 1 unit per 7 grams CHO consumed Risk Factors for Insulin Resistance: * Infection * Diet Assessment & Plan ASSESSMENT: * 86 yo M known to pharmacy from recent admission earlier this month * He is on broad spectrum ABX as an outpatient; Dapto was continued but Invanz changed to Zosyn IV * My plan will be to continue a similar regimen that worked in prior admission with the exception of keeping his Lantus consistent with home regimen * If BSGs begin to trend up, will increase Lantus to 15 units which has worked in the past * ADA & AACE recommend a goal blood sugar range 140-180 mg/dl for the majority of critically ill & non-critically ill patients. However, more stringent targets may be selected in individual cases. Tighten to 110-140 mg/dL as patient to be transferred out of ICU in the next 24 hours and this goal range worked in prior admission. PLAN FOR INPATIENT GLYCEMIC CONTROL: * Basal insulin with LANTUS 12 units SQ HS * Correctional Insulin with NOVOLOG per scale ACHS * Goal Range: Low 110 mg/dL - High 140 mg/dL * Correction Factor: 20 mg/dL/unit * Nutritional / Prandial insulin per carb ratio of 1 unit per 7 grams CHO consumed * A1c 6.5% this admission indicative of good glycemic control- add to D/C instructions * Please note that the plan above was derived based on current level of insulin resistance and hospital stress. These recommendations are appropriate for inpatient admission only. Plan of care upon discharge will need to be reassessed to avoid potential outpatient hypo/hyperglycemia. Thank you.
[2016-09-20] MEDS ORDERED: FLUCONAZOLE 100 MG TAB PO ONE (12:45)
--- NOTE | 2016-09-20 12:49 | Critical Care Progress Note ---
Critical Care Progress Note Date of Service Sep 20, 2016. ICU Day ICU Day Number: [address] Vaca Subjective No complaints, feels much better. Watching TV in the room: [employer] [facility]. Objective General Appearance: WD/WN, no apparent distress Head: normocephalic, atraumatic Eyes: normal inspection, PERRL, sclerae normal Neck: supple, trachea midline Abdomen/GI: normal bowel sounds, non tender, soft Back: normal inspection Extremities/Musculoskelatal: normal inspection, + pedal edema, + pertinent finding (Left 3rd toe gangrenous ) Neurologic/Psych: apigee developer II-XII nml as tested, alert, normal mood/affect, + pertinent finding (Grossly no motor deficits) Skin: normal color, warm/dry Current SOFA Score SOFA Score Response (Comments) Value SaO2 / FIO2 221 - 301 1 Platelets (x10) < 150 1 Bilirubin (mg/dL) < 1.2 0 [place] Coma Score 15 0 Level of Hypotension No Hypotension 0 Creatinine (mg/dL) 1.2 - 1.9 1 Total 3 Assessment & Plan 1. Severe sepsis: resolved 2. Acute hypoxemic respiratory failure and respiratory alkalosis, started on Levaquin September 16. 3. Acute kidney injury on chronic kidney disease 4. Anemia, stable compared to his discharge hemoglobin on September 04, no signs of acute blood loss 5. History of diastolic dysfunction 6. Recent treatment for micrococcus in joint fluid as well as left lower extremity cellulitis with gangrene of the third toe. He has been on daptomycin and ertapenem since discharge on September 04 7. Diabetes mellitus with hyperglycemia 8. Chronic atrial fibrillation, not anticoagulated secondary to epistaxis and unsteady gait 9. History of hypertension 10. DO NOT RESUSCITATE CODE STATUS 11. Funguria: Plan: Neuro: Avoid benzodiazepines, at risk for delirium Pulmonary: Improved, concerned for volume overload. Cardiovascular: Continue aspirin, metoprolol. Repeat ECHO, gentle diuresis. As I reviewed the chart there was no documentation of hypotension, in fact hypertension GI: Restart diet, type 2 diabetic based on last admission diet order. Fluid restriction of 1800 cc daily. Infectious disease: ID consult reviewed. Continue daptomycin, Zosyn. * Await microbiology cultures. * Funguria: diflucan 400mg Qdayx14 days since possible sepsis, and d/c matos Renal: Cr. 1.9 to 1.7 40 meq Heme: Subcutaneous heparin for DVT prophylaxis. Endocrine: Glycemic consult. Stable for downgrade from ICU. Consults & Procedures Consultants: #1 infectious disease number to vascular surgery #3 critical care Procedures: Not applicable Data Medications: Current Inpatient Medications Medications (Trade) Dose Ordered Sig/Rosemarie Route Start Time Stop Time Status Last Admin Dose Admin Heparin Sodium (Porcine) (Heparin Sq 5000 Unit/0.5ml) 5,000 unit Q8 SQ 09/19/16 22:00 10/19/16 18:14 09/20/16 06:09 5,000 UNIT Acetaminophen (Tylenol Tab) 650 mg Q4H PRN PO 09/19/16 18:15 10/19/16 18:14 Piperacillin Sod/ Tazobactam Sod (Consult) 1 ea UD PRN N/A 09/19/16 20:16 10/19/16 20:15 Glucose (Glucose 40% Gel) 15-30 GRAMS 15 GRAMS... UD PRN PO 09/19/16 19:15 10/19/16 19:14 Glucose (Glucose Chew Tab) 4-8 Tablets 4 Tabl... UD PRN PO 09/19/16 19:15 10/19/16 19:14 Dextrose (Dextrose 50% 50ML Syringe) 25-50ML OF 50% DW IV FOR... UD PRN IV 09/19/16 19:15 10/19/16 19:14 Glucagon (Glucagon Inj) 1 mg UD PRN SQ 09/19/16 19:15 10/19/16 19:14 Miscellaneous Information (Consult Glycemic Management Pharmacy) 1 ea UD PRN N/A 09/19/16 19:20 10/19/16 19:19 Aspirin (Ecotrin Tab) 81 mg QAM PO 09/20/16 09:00 10/20/16 08:59 09/20/16 07:47 81 MG Docusate Sodium (coLACE CAP) 100 mg BID PO 09/19/16 21:00 10/19/16 20:59 09/20/16 07:47 100 MG Folic Acid (Folvite Tab) 1 mg DAILY PO 09/20/16 09:00 10/20/16 08:59 09/20/16 07:47 1 MG Insulin Glargine (Lantus Solostar Pen) 12 units PM SC 09/19/16 21:00 10/19/16 20:59 09/19/16 21:10 12 UNITS Metoprolol Tartrate (Lopressor Tab) 25 mg BID PO 09/19/16 21:00 10/19/16 20:59 09/20/16 07:48 25 MG Senna/Docusate Sodium (Senokot S Tab) 1 tab Q24H PRN PO 09/19/16 19:15 10/19/16 19:14 Cholecalciferol (Vitamin D Tab) 2,000 inter.unit DAILY PO 09/20/16 09:00 10/20/16 08:59 09/20/16 07:48 2,000 INTER.UNIT Ferrous Sulfate (Feosol Tab) 325 mg BID PO 09/19/16 21:00 10/19/16 20:59 09/20/16 07:47 325 MG Polyethylene (Miralax Powder Packet) 17 gm DAILY PRN PO 09/19/16 19:15 10/19/16 19:14 Daptomycin (Consult) 1 ea UD PRN N/A 09/19/16 20:30 10/19/16 20:29 Daptomycin 500 mg/ Sodium Chloride 60 ml @ 120 mls/hr Q24H IV 09/20/16 06:00 09/27/16 23:59 09/20/16 05:11 120 MLS/HR Piperacillin Sod/ Tazobactam Sod 4.5 gm/Dextrose 120 ml @ 30 mls/hr Q8H IV 09/19/16 22:00 09/26/16 21:59 09/20/16 06:05 30 MLS/HR Albuterol/ Ipratropium (Duoneb) 3 ml Q6R INH 09/20/16 03:00 10/20/16 02:59 09/20/16 07:01 3 ML Ondansetron HCl (Zofran Inj) 4 mg Q6H PRN IV 09/20/16 05:45 10/20/16 05:44 Furosemide (Lasix Tab) 20 mg QAM PO 09/20/16 10:37 10/20/16 10:36 09/20/16 11:27 20 MG Potassium Chloride (Klor-Con M10) 10 meq DAILY PO 09/20/16 10:37 10/20/16 10:36 09/20/16 11:27 10 MEQ Insulin Aspart (novoLOG ASPART) SLIDING SCALE If C... ACHS SC 09/20/16 11:45 10/20/16 11:44 Vital Signs: Date Time Temp Pulse Resp B/P (MAP) Pulse Ox O2 Delivery O2 Flow Rate FiO2 09/20/16 12:00 98 Nasal Cannula 4.0 09/20/16 12:00 36.7 81 20 120/64 (82) 98 Nasal Cannula 4.0 09/20/16 10:00 70 20 113/62 (79) 98 Nasal Cannula 4.0 09/20/16 08:00 36.4 88 22 122/61 (81) 95 Nasal Cannula 4.0 09/20/16 08:00 95 Nasal Cannula 4.0 09/20/16 07:03 72 18 99 Nasal Cannula 4.0 09/20/16 06:00 78 20 114/47 (69) 98 Nasal Cannula 4.0 09/20/16 04:30 36.9 75 18 125/56 (79) 98 Nasal Cannula 4.0 09/20/16 04:30 100 Nasal Cannula 4.0 09/20/16 02:00 73 16 124/68 (86) 99 Nasal Cannula 4.0 09/20/16 01:50 71 18 93 4.0 09/20/16 00:01 36.6 69 20 117/59 (78) 100 Nasal Cannula 4.0 09/20/16 00:01 100 Nasal Cannula 4.0 09/19/16 22:01 85 112/78 (89) 98 09/19/16 21:33 36.6 87 20 129/74 98 Nasal Cannula 09/19/16 21:30 98 Nasal Cannula 4.0 09/19/16 21:01 85 118/65 (82) 09/19/16 19:33 88 20 135/69 97 BiPAP 09/19/16 18:53 39.3 92 18 134/61 98 BiPAP 09/19/16 18:14 40.0 103 18 130/63 100 BiPAP 09/19/16 17:04 88 24 152/77 99 BiPAP 09/19/16 15:54 95 24 98 BiPAP 40 09/19/16 15:54 95 98 40 09/19/16 15:30 39.3 94 28 169/86 94 Non-Rebreather 6.0 09/19/16 15:30 94 Nasal Cannula 6.0 Laboratory Results: Last 24 Hours Test 09/19/16 15:35 09/19/16 15:43 09/19/16 16:45 09/19/16 17:45 White Blood Count 15.43 K/uL Red Blood Count 2.97 M/uL Hemoglobin 8.5 g/dL Hematocrit 26.7 % Mean Corpuscular Volume 89.9 fL Mean Corpuscular Hemoglobin 28.6 pg Mean Corpuscular Hemoglobin Concent 31.8 g/dl Platelet Count 181 K/uL Mean Platelet Volume 10.1 fL Neutrophils (%) (Auto) 83.6 % Lymphocytes (%) (Auto) 4.9 % Monocytes (%) (Auto) 11.0 % Eosinophils (%) (Auto) 0.1 % Basophils (%) (Auto) 0.1 % Neutrophils # (Auto) 12.92 K/uL Lymphocytes # (Auto) 0.75 K/uL Monocytes # (Auto) 1.69 K/uL Eosinophils # (Auto) 0.01 K/uL Basophils # (Auto) 0.01 K/uL RDW Standard Deviation 58.4 fL RDW Coefficient of Variation 17.8 % Immature Granulocyte % (Auto) 0.3 % Immature Granulocyte # (Auto) 0.05 K/uL Blood Smear Review Red Blood Cell Morphology Unremarkable Prothrombin Time 13.8 SECONDS Prothromb Time International Ratio 1.3 Sodium Level 137 mmol/L Potassium Level 3.8 mmol/L Chloride Level 101 mmol/L Carbon Dioxide Level 25 mmol/L Anion Gap 11.0 mmol/L Blood Urea Nitrogen 46 mg/dl Creatinine 1.90 mg/dl Est Creatinine Clear Calc Drug Dose 30.5 ml/min Estimated GFR () 35.7 Estimated GFR (Non- 30.8 BUN/Creatinine Ratio 24.0 Random Glucose 160 mg/dl Calcium Level 8.5 mg/dl Magnesium Level 1.9 mg/dl Total Bilirubin 0.5 mg/dl Aspartate Amino Transf (AST/SGOT) 30 U/L Alanine Aminotransferase (ALT/SGPT) 29 U/L Alkaline Phosphatase 85 U/L Troponin I 0.027 ng/ml Pro-B-Type Natriuretic Peptide > 86651 pg/ml Total Protein 8.0 gm/dl Albumin 2.1 gm/dl Globulin 5.9 gm/dl Albumin/Globulin Ratio 0.4 Lipase 55 U/L Thyroid Stimulating Hormone (TSH) 1.240 uIu/ml Bedside Lactic Acid Venous 2.12 mmol/L Urine Color YELLOW Urine Appearance CLOUDY Urine pH 5.0 Urine Specific [place] 1.020 Urine Protein 1+ Urine Glucose (UA) NEG Urine Ketones NEG Urine Occult Blood NEG Urine Nitrite NEG Urine Bilirubin NEG Urine Urobilinogen NEG Urine Leukocyte Esterase NEG Urine WBC (Auto) 10-30 /hpf Urine RBC (Auto) 0-4 /hpf Urine Hyaline Casts (Auto) 5-10 /lpf Urine Epithelial Cells (Auto) >30 /lpf Urine Bacteria (Auto) NEG Urine Renal Epithelial Cells 5-10 /lpf Urine Pathogenic Casts 0-3 GRANULAR CASTS /lpf Urine Yeast (Auto) PRESENT Bedside Glucose 220 mg/dl Test 09/19/16 18:25 09/19/16 20:57 09/19/16 21:07 09/19/16 21:15 Arterial Blood pH 7.52 Arterial Blood Partial Pressure CO2 27 mmHg Arterial Blood Partial Pressure O2 94 mm/Hg Arterial Blood HCO3 21 mmol/L Arterial Blood Oxygen Saturation 94.8 % Arterial Blood Base Excess -1.2 mEq/L Arterial Blood Gas Delivery 40 % O2 Ed Test POS Lactic Acid Level 1.6 mmol/L Bedside Glucose 203 mg/dl Troponin I 0.066 ng/ml Test 09/19/16 23:24 09/20/16 06:07 09/20/16 06:20 09/20/16 11:29 Bedside Glucose 224 mg/dl 145 mg/dl 154 mg/dl White Blood Count 10.38 K/uL Red Blood Count 2.62 M/uL Hemoglobin 7.6 g/dL Hematocrit 23.2 % Mean Corpuscular Volume 88.5 fL Mean Corpuscular Hemoglobin 29.0 pg Mean Corpuscular Hemoglobin Concent 32.8 g/dl Platelet Count 144 K/uL Mean Platelet Volume 10.6 fL Neutrophils (%) (Auto) 84.7 % Lymphocytes (%) (Auto) 5.7 % Monocytes (%) (Auto) 9.0 % Eosinophils (%) (Auto) 0.1 % Basophils (%) (Auto) 0.2 % Neutrophils # (Auto) 8.80 K/uL Lymphocytes # (Auto) 0.59 K/uL Monocytes # (Auto) 0.93 K/uL Eosinophils # (Auto) 0.01 K/uL Basophils # (Auto) 0.02 K/uL RDW Standard Deviation 57.7 fL RDW Coefficient of Variation 17.7 % Immature Granulocyte % (Auto) 0.3 % Immature Granulocyte # (Auto) 0.03 K/uL Hypochromasia PRESENT Poikilocytosis PRESENT Anisocytosis PRESENT Sodium Level 140 mmol/L Potassium Level 2.9 mmol/L Chloride Level 103 mmol/L Carbon Dioxide Level 29 mmol/L Anion Gap 8.0 mmol/L Blood Urea Nitrogen 42 mg/dl Creatinine 1.70 mg/dl Est Creatinine Clear Calc Drug Dose 33.5 ml/min Estimated GFR () 40.8 Estimated GFR (Non- 35.2 BUN/Creatinine Ratio 24.6 Random Glucose 132 mg/dl Estimated Average Glucose 140 mg/dl Hemoglobin A1c 6.5 % Lactic Acid Level 1.1 mmol/L Calcium Level 8.0 mg/dl Phosphorus Level 3.5 mg/dl Magnesium Level 1.9 mg/dl Total Bilirubin 0.6 mg/dl Direct Bilirubin 0.2 mg/dl Aspartate Amino Transf (AST/SGOT) 21 U/L Alanine Aminotransferase (ALT/SGPT) 24 U/L Alkaline Phosphatase 68 U/L Total Creatine Kinase 41 U/L Troponin I 0.039 ng/ml Total Protein 6.9 gm/dl Albumin 1.8 gm/dl Test 09/20/16 11:37
--- NOTE | 2016-09-20 13:16 | Clinical Documentation Query ---
CLINICAL DOCUMENTATION QUERY Dr. RETANA, In your clinical opinion is this patient being managed for: (x ) Urinary tract infection ( ) Other explanation of clinical findings (Please Explain) ( ) Unable to determine (Please Define) ( ) Need to Discuss ( ) Not Agree The medical record reflects the following clinical findings, treatment, and risk factors. Clinical Indicators: 86 yo male presenting with severe sepsis, pneumonia. Ua cx prelim shows yeast not evon albicans. Final urine cx is pending. Treatment: diflucan po, IV fluids, remove matos catheter inserted in ER Risk Factors: age, DM, CKD stage III, outpatient antibiotic treatment Please clarify and document your clinical opinion in the progress notes and discharge summary. Terms such as "probable", "suspected", "likely", "questionable", "possible", or "still to be ruled out" are acceptable. IF IN AGREEMENT, YOU MUST DOCUMENT ABOVE DIAGNOSTIC STATEMENT IN DAILY PROGRESS NOTES AND DISCHARGE SUMMARY. This document is not part of the patient's record. Thank You, Camila Contreras RN [phone]
--- NOTE | 2016-09-20 15:55 | ECHOCARDIOGRAM REPORT ---
*NOTICE TO RECEIVING [employer] This information is strictly Confidential and protected under [place] law. [place] law prohibits you from making any further disclosure of this information unless further disclosure is expressly permitted by the written consent of the person to whom it pertains or is authorized by law. A general authorization for the release of medical or other information is not sufficient for this purpose. Hospital accepts no responsibility if the information is made available to any other person, INCLUDING THE PATIENT. Interpretation Summary * Name: MIGUEL GAFFNEY JR Study Date: 09/20/2016 10:44 AM BP: 113/62 mmHg * Patient Location: 105 HR: 70 * : 1930 (M/d/yyyy) Gender: Male Height: 70 in * Age: 86 yrs Ethnicity: [place] Weight: 193 lb * Ordering Physician: AMY WARE DO * Performed By: Monica Dutton * * Reason For Study: HYPOXIA, R/O CHF * BSA: 2.1 m2 * -- Conclusions -- * The left ventricle is borderline dilated. * There is moderate to severe inferior wall hypokinesis. * There is moderate to severe lateral wall hypokinesis. * Ejection Fraction = 35-40%. 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 Procedure Details * A complete two-dimensional transthoracic echocardiogram was performed (2D, M-mode, Doppler and color flow Doppler). * The study was technically difficult. * There were technical limitations due to patient'sinability to cooperate * A contrast injection of Definity was performed to improve assessment of LV function. * Contrast was injected into an intravenous site in the right arm. * One vial of Definity ultrasound contrast was diluted in normal saline to a total volume of 10 ml. A total of '2' ml of solution was administered during imaging. * Lot # [id number] of Definity utilized for procedure. * Expiration date 11/05. * The attending nurse who injected the contrast agent was LALI DIAZ. Left Ventricle * The left ventricle is borderline dilated. * Ejection Fraction = 35-40%. * There is moderate to severe inferior wall hypokinesis. * There is moderate to severe lateral wall hypokinesis. Right Ventricle * The right ventricle is not well visualized. * The right ventricle is grossly normal size. * The right ventricular systolic function is qualitatively normal. Mitral Valve * There is severe mitral annular calcification. * The mitral valve is not well visualized. * There is trace mitral regurgitation. Tricuspid Valve * The tricuspid valve is not well visualized. * Significant tricuspid regurgitation is absent. Aortic Valve * There is no significant aortic regurgitation. 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 Pulmonic Valve * The pulmonic valve is not well visualized. * There is no significant pulmonary regurgitation. Pericardium/Pleural * The pericardium appears normal. MMode 2D Measurements and Calculations IVSd 0.99 cm IVSs 1.7 cm LVIDd 5.2 cm LVIDs 4.3 cm LVPWd 1.3 cm LVPWs 1.5 cm IVS/LVPW 0.73 FS 17.6 % EDV(Teich) 128.1 ml ESV(Teich) 81.5 ml EF(Teich) 36.4 % EDV(cubed) 138.6 ml ESV(cubed) 77.6 ml EF(cubed) 44.0 % % IVS thick 71.3 % % LVPW thick 10.2 % LV mass(C)d 237.7 grams LV mass(C)dI 115.6 grams/m\S\2 LV mass(C)s 279.0 grams LV mass(C)sI 135.7 grams/m\S\2 CO(Teich) 3.7 l/min CI(Teich) 1.8 l/min/m\S\2 SV(Teich) 46.6 ml SI(Teich) 22.7 ml/m\S\2 CO(cubed) 4.8 l/min CI(cubed) 2.3 l/min/m\S\2 SV(cubed) 61.0 ml SI(cubed) 29.7 ml/m\S\2 EPSS 1.8 cm LA dimension 4.7 cm asc Aorta Diam 3.6 cm LVAd ap4 37.8 cm\S\2 LVLd ap4 9.1 cm EDV(MOD-sp4) 128.0 ml LVAs ap4 27.5 cm\S\2 LVLs ap4 7.5 cm ESV(MOD-sp4) 80.3 ml EF(MOD-sp4) 37.3 % LVAd ap2 34.3 cm\S\2 LVLd ap2 8.6 cm EDV(MOD-sp2) 114.0 ml LVAs ap2 26.2 cm\S\2 LVLs ap2 8.0 cm ESV(MOD-sp2) 68.9 ml EF(MOD-sp2) 39.6 % CO(MOD-sp4) 3.8 l/min CI(MOD-sp4) 1.8 l/min/m\S\2 SV(MOD-sp4) 47.7 ml SI(MOD-sp4) 23.2 ml/m\S\2 CO(MOD-sp2) 3.6 l/min CI(MOD-sp2) 1.7 l/min/m\S\2 SV(MOD-sp2) 45.1 ml SI(MOD-sp2) 21.9 ml/m\S\2 Doppler Measurements and Calculations MV E max savanna 157.0 cm/sec MV dec time 0.27 sec Ao V2 max 257.1 cm/sec Ao max PG 26.8 mmHg Ao max PG (full) 24.9 mmHg Ao V2 mean 178.5 cm/sec Ao mean PG 14.8 mmHg Ao V2 VTI 61.6 cm LV V1 max PG 1.9 mmHg LV V1 max 68.6 cm/sec MR max savanna 437.8 cm/sec MR max PG 76.7 mmHg PA V2 max 85.9 cm/sec PA max PG 2.9 mmHg PI end-d savanna 97.1 cm/sec
[2016-09-20] MEDS ORDERED: INSULIN ASPART 100 UNITS/ML 3 ML PEN SC SCH (16:00)
--- NOTE | 2016-09-20 18:30 | Progress Note ---
Medicine Progress Note Date & Time of Visit: Sep 20, 2016 at 13:11. Subjective 86 yo M presented from [facility] with shortness of breath and hypoxia and admitted to the ICU for severe sepsis of uncertain origin - pt denies SOB, chest pain or any issues at this time. Objective Last 8 Hrs Date Time Temp Pulse Resp B/P (MAP) Pulse Ox O2 Delivery O2 Flow Rate FiO2 09/20/16 12:00 98 Nasal Cannula 4.0 09/20/16 12:00 36.7 81 20 120/64 (82) 98 Nasal Cannula 4.0 09/20/16 10:00 70 20 113/62 (79) 98 Nasal Cannula 4.0 09/20/16 08:00 36.4 88 22 122/61 (81) 95 Nasal Cannula 4.0 09/20/16 08:00 95 Nasal Cannula 4.0 09/20/16 07:03 72 18 99 Nasal Cannula 4.0 09/20/16 06:00 78 20 114/47 (69) 98 Nasal Cannula 4.0 Physical Exam: GEN: WNWD, in no acute distress, alert and appropriate, NC in place, MMM HEENT: NC/AT, normal sclerae CARDIO: reg rate, S1/2 heard without m/g/r LUNGS: CTA bilaterally, no crackles, rales or wheezes, good diaphragmatic excursion ABD: soft, non-tender, non-distended, no rebound or guarding EXTREMITY: RP and DP palpable 2+ bilat, no LE swelling or edema, extremities are warm and well-perfused LLE-toe appears black and proximal to that is redness NEURO: CN 2-12 intact MUSC: moves all extremities with ease SKIN: warm and dry Laboratory Results: 09/20/16 06:20 Red Blood Count 2.62, Mean Corpuscular Volume 88.5, Mean Corpuscular Hemoglobin 29.0, Mean Corpuscular Hemoglobin Concent 32.8, Mean Platelet Volume 10.6, Neutrophils (%) (Auto) 84.7, Lymphocytes (%) (Auto) 5.7, Monocytes (%) (Auto) 9.0, Eosinophils (%) (Auto) 0.1, Basophils (%) (Auto) 0.2, Neutrophils # (Auto) 8.80, Lymphocytes # (Auto) 0.59, Monocytes # (Auto) 0.93, Eosinophils # (Auto) 0.01, Basophils # (Auto) 0.02 09/20/16 06:20 Test 09/19/16 15:35 09/19/16 15:43 09/19/16 16:45 09/19/16 18:25 Blood Smear Review Red Blood Cell Morphology Unremarkable Prothrombin Time 13.8 SECONDS (9.0-12.0) Prothromb Time International Ratio 1.3 (0.9-1.1) Pro-B-Type Natriuretic Peptide > 88127 pg/ml (0-1800) Globulin 5.9 gm/dl (2.5-4.0) Albumin/Globulin Ratio 0.4 (0.9-2) Lipase 55 U/L (73-393) Thyroid Stimulating Hormone (TSH) 1.240 uIu/ml (0.300-4.500) Bedside Lactic Acid Venous 2.12 mmol/L (0.90-1.70) Urine Color YELLOW Urine Appearance CLOUDY (CLEAR) Urine pH 5.0 (4.5-7.5) Urine Specific [place] 1.020 (1.000-1.030) Urine Protein 1+ (NEG) Urine Glucose (UA) NEG (NEG) Urine Ketones NEG (NEG) Urine Occult Blood NEG (NEG) Urine Nitrite NEG (NEG) Urine Bilirubin NEG (NEG) Urine Urobilinogen NEG (NEG) Urine Leukocyte Esterase NEG (NEG) Urine WBC (Auto) 10-30 /hpf (0-5) Urine RBC (Auto) 0-4 /hpf (0-4) Urine Hyaline Casts (Auto) 5-10 /lpf (0-5) Urine Epithelial Cells (Auto) >30 /lpf (0-5) Urine Bacteria (Auto) NEG (NEG) Urine Renal Epithelial Cells 5-10 /lpf (0-5) Urine Pathogenic Casts 0-3 GRANULAR CASTS /lpf (0) Urine Yeast (Auto) PRESENT (NONE PRSENT) Arterial Blood pH 7.52 (7.35-7.45) Arterial Blood Partial Pressure CO2 27 mmHg (35-46) Arterial Blood Partial Pressure O2 94 mm/Hg (80-95) Arterial Blood HCO3 21 mmol/L (19-24) Arterial Blood Oxygen Saturation 94.8 % (90-95) Arterial Blood Base Excess -1.2 mEq/L (-9-1.8) Arterial Blood Gas Delivery 40 % O2 Ed Test POS (POS) Test 09/20/16 06:20 09/20/16 11:37 09/20/16 16:13 White Blood Count 10.38 K/uL (4.8-10.8) Red Blood Count 2.62 M/uL (4.7-6.1) Hemoglobin 7.6 g/dL (14.0-18.0) Hematocrit 23.2 % (42-52) Mean Corpuscular Volume 88.5 fL (80-100) Mean Corpuscular Hemoglobin 29.0 pg (25-34) Mean Corpuscular Hemoglobin Concent 32.8 g/dl (32-36) Platelet Count 144 K/uL (130-400) Mean Platelet Volume 10.6 fL (7.4-10.4) Neutrophils (%) (Auto) 84.7 % Lymphocytes (%) (Auto) 5.7 % Monocytes (%) (Auto) 9.0 % Eosinophils (%) (Auto) 0.1 % Basophils (%) (Auto) 0.2 % Neutrophils # (Auto) 8.80 K/uL (1.4-6.5) Lymphocytes # (Auto) 0.59 K/uL (1.2-3.4) Monocytes # (Auto) 0.93 K/uL (0.11-0.59) Eosinophils # (Auto) 0.01 K/uL (0-0.5) Basophils # (Auto) 0.02 K/uL (0-0.2) RDW Standard Deviation 57.7 fL (36.4-46.3) RDW Coefficient of Variation 17.7 % (11.5-14.5) Immature Granulocyte % (Auto) 0.3 % Immature Granulocyte # (Auto) 0.03 K/uL (0.00-0.02) Hypochromasia PRESENT Poikilocytosis PRESENT Anisocytosis PRESENT Anion Gap 8.0 mmol/L (3-11) Est Creatinine Clear Calc Drug Dose 33.5 ml/min Estimated GFR () 40.8 Estimated GFR (Non- 35.2 BUN/Creatinine Ratio 24.6 (10-20) Estimated Average Glucose 140 mg/dl Hemoglobin A1c 6.5 % (4.5-5.6) Lactic Acid Level 1.1 mmol/L (0.4-2.0) Calcium Level 8.0 mg/dl (8.5-10.1) Phosphorus Level 3.5 mg/dl (2.5-4.9) Magnesium Level 1.9 mg/dl (1.8-2.4) Total Bilirubin 0.6 mg/dl (0.2-1) Direct Bilirubin 0.2 mg/dl (0-0.2) Aspartate Amino Transf (AST/SGOT) 21 U/L (15-37) Alanine Aminotransferase (ALT/SGPT) 24 U/L (12-78) Alkaline Phosphatase 68 U/L (45-117) Total Creatine Kinase 41 U/L (39-308) Troponin I 0.039 ng/ml (0-0.045) Total Protein 6.9 gm/dl (6.4-8.2) Albumin 1.8 gm/dl (3.4-5.0) Procalcitonin 1.15 ng/ml (0-0.5) Bedside Glucose 146 mg/dl (70-99) Date/Time Source Procedure Growth Status 09/19/16 15:35 Blood Blood Culture Pending Received 09/19/16 20:52 Nasal MRSA DNA Surveillance Screen - Final Specimen Negative for MRSA by DNA Probe Complete 09/19/16 16:45 Urine , Clean Catch Urine Culture - Preliminary Yeast Not Jess Albicans Resulted 09/19/16 21:00 Catheter Tip Picc Line Catheter Tip Culture Pending Received Last 24 Hours Test 09/19/16 15:35 09/19/16 15:43 09/19/16 16:45 09/19/16 17:45 White Blood Count 15.43 K/uL Red Blood Count 2.97 M/uL Hemoglobin 8.5 g/dL Hematocrit 26.7 % Mean Corpuscular Volume 89.9 fL Mean Corpuscular Hemoglobin 28.6 pg Mean Corpuscular Hemoglobin Concent 31.8 g/dl Platelet Count 181 K/uL Mean Platelet Volume 10.1 fL Neutrophils (%) (Auto) 83.6 % Lymphocytes (%) (Auto) 4.9 % Monocytes (%) (Auto) 11.0 % Eosinophils (%) (Auto) 0.1 % Basophils (%) (Auto) 0.1 % Neutrophils # (Auto) 12.92 K/uL Lymphocytes # (Auto) 0.75 K/uL Monocytes # (Auto) 1.69 K/uL Eosinophils # (Auto) 0.01 K/uL Basophils # (Auto) 0.01 K/uL RDW Standard Deviation 58.4 fL RDW Coefficient of Variation 17.8 % Immature Granulocyte % (Auto) 0.3 % Immature Granulocyte # (Auto) 0.05 K/uL Blood Smear Review Red Blood Cell Morphology Unremarkable Prothrombin Time 13.8 SECONDS Prothromb Time International Ratio 1.3 Sodium Level 137 mmol/L Potassium Level 3.8 mmol/L Chloride Level 101 mmol/L Carbon Dioxide Level 25 mmol/L Anion Gap 11.0 mmol/L Blood Urea Nitrogen 46 mg/dl Creatinine 1.90 mg/dl Est Creatinine Clear Calc Drug Dose 30.5 ml/min Estimated GFR () 35.7 Estimated GFR (Non- 30.8 BUN/Creatinine Ratio 24.0 Random Glucose 160 mg/dl Calcium Level 8.5 mg/dl Magnesium Level 1.9 mg/dl Total Bilirubin 0.5 mg/dl Aspartate Amino Transf (AST/SGOT) 30 U/L Alanine Aminotransferase (ALT/SGPT) 29 U/L Alkaline Phosphatase 85 U/L Troponin I 0.027 ng/ml Pro-B-Type Natriuretic Peptide > 81430 pg/ml Total Protein 8.0 gm/dl Albumin 2.1 gm/dl Globulin 5.9 gm/dl Albumin/Globulin Ratio 0.4 Lipase 55 U/L Thyroid Stimulating Hormone (TSH) 1.240 uIu/ml Bedside Lactic Acid Venous 2.12 mmol/L Urine Color YELLOW Urine Appearance CLOUDY Urine pH 5.0 Urine Specific [place] 1.020 Urine Protein 1+ Urine Glucose (UA) NEG Urine Ketones NEG Urine Occult Blood NEG Urine Nitrite NEG Urine Bilirubin NEG Urine Urobilinogen NEG Urine Leukocyte Esterase NEG Urine WBC (Auto) 10-30 /hpf Urine RBC (Auto) 0-4 /hpf Urine Hyaline Casts (Auto) 5-10 /lpf Urine Epithelial Cells (Auto) >30 /lpf Urine Bacteria (Auto) NEG Urine Renal Epithelial Cells 5-10 /lpf Urine Pathogenic Casts 0-3 GRANULAR CASTS /lpf Urine Yeast (Auto) PRESENT Bedside Glucose 220 mg/dl Test 09/19/16 18:25 09/19/16 20:57 09/19/16 21:07 09/19/16 21:15 Arterial Blood pH 7.52 Arterial Blood Partial Pressure CO2 27 mmHg Arterial Blood Partial Pressure O2 94 mm/Hg Arterial Blood HCO3 21 mmol/L Arterial Blood Oxygen Saturation 94.8 % Arterial Blood Base Excess -1.2 mEq/L Arterial Blood Gas Delivery 40 % O2 Ed Test POS Lactic Acid Level 1.6 mmol/L Bedside Glucose 203 mg/dl Troponin I 0.066 ng/ml Test 09/19/16 23:24 09/20/16 06:07 09/20/16 06:20 09/20/16 11:29 Bedside Glucose 224 mg/dl 145 mg/dl 154 mg/dl White Blood Count 10.38 K/uL Red Blood Count 2.62 M/uL Hemoglobin 7.6 g/dL Hematocrit 23.2 % Mean Corpuscular Volume 88.5 fL Mean Corpuscular Hemoglobin 29.0 pg Mean Corpuscular Hemoglobin Concent 32.8 g/dl Platelet Count 144 K/uL Mean Platelet Volume 10.6 fL Neutrophils (%) (Auto) 84.7 % Lymphocytes (%) (Auto) 5.7 % Monocytes (%) (Auto) 9.0 % Eosinophils (%) (Auto) 0.1 % Basophils (%) (Auto) 0.2 % Neutrophils # (Auto) 8.80 K/uL Lymphocytes # (Auto) 0.59 K/uL Monocytes # (Auto) 0.93 K/uL Eosinophils # (Auto) 0.01 K/uL Basophils # (Auto) 0.02 K/uL RDW Standard Deviation 57.7 fL RDW Coefficient of Variation 17.7 % Immature Granulocyte % (Auto) 0.3 % Immature Granulocyte # (Auto) 0.03 K/uL Hypochromasia PRESENT Poikilocytosis PRESENT Anisocytosis PRESENT Sodium Level 140 mmol/L Potassium Level 2.9 mmol/L Chloride Level 103 mmol/L Carbon Dioxide Level 29 mmol/L Anion Gap 8.0 mmol/L Blood Urea Nitrogen 42 mg/dl Creatinine 1.70 mg/dl Est Creatinine Clear Calc Drug Dose 33.5 ml/min Estimated GFR () 40.8 Estimated GFR (Non- 35.2 BUN/Creatinine Ratio 24.6 Random Glucose 132 mg/dl Estimated Average Glucose 140 mg/dl Hemoglobin A1c 6.5 % Lactic Acid Level 1.1 mmol/L Calcium Level 8.0 mg/dl Phosphorus Level 3.5 mg/dl Magnesium Level 1.9 mg/dl Total Bilirubin 0.6 mg/dl Direct Bilirubin 0.2 mg/dl Aspartate Amino Transf (AST/SGOT) 21 U/L Alanine Aminotransferase (ALT/SGPT) 24 U/L Alkaline Phosphatase 68 U/L Total Creatine Kinase 41 U/L Troponin I 0.039 ng/ml Total Protein 6.9 gm/dl Albumin 1.8 gm/dl Test 09/20/16 11:37 Procalcitonin 1.15 ng/ml Date/Time Source Procedure Growth Status 09/19/16 15:35 Blood Blood Culture Pending Received 09/19/16 15:32 Blood Blood Culture Pending Received 09/19/16 20:52 Nasal MRSA DNA Surveillance Screen - Final Specimen Negative for MRSA by DNA Probe Complete 09/19/16 16:45 Urine , Clean Catch Urine Culture - Preliminary Yeast Not Jess Albicans Resulted 09/19/16 21:00 Catheter Tip Picc Line Catheter Tip Culture Pending Received Assessment & Plan 86 yo M presented from [facility] with shortness of breath and hypoxia and admitted to the ICU for severe sepsis of uncertain origin 1. Severe Sepsis 2. Acute hypoxic respiratory failure 3. Funguria 4. Chronic diastolic heart failure 5. PAD with 3rd L toe wtih gangrene 6. DMII-ISS 7. Chronic afib with RVR-not on anticoagulation as pt is fall risk 8. CKD III 9. CAD 10. Anemia-poss 2/2 dilution Did well on BIPAP overnight and transitioned to nasal canula Cont broad abx-Dapto, Zosyn Started on fluconazole Febrile with Tm 40C overnight with blood cultures still pending. Cont nasal canula and pulm support with duonebs IVF off since resuscitation and will start daily furosemide in am ID consulted Aspiration/Fall precautions Vascular Surgery consulted Planned for eventual amputation of toe Glucose well-controlled Not on chronic anticoagulation( discontinued previously secondary to epistaxis and unsteady gait) Cont holding statin for CAD while on Dapto Trend CBC in am DVT Px: Heparin SQ Code Status: DNR/DNI Dispo-transferred from ICU to tele today DO Sarah Zarate Hospitalist Consultants: MARIO Vascular Surgery Current Inpatient Medications: Current Inpatient Medications Medications (Trade) Dose Ordered Sig/Rosemarie Route Start Time Stop Time Status Last Admin Dose Admin Heparin Sodium (Porcine) (Heparin Sq 5000 Unit/0.5ml) 5,000 unit Q8 SQ 09/19/16 22:00 10/19/16 18:14 09/20/16 06:09 5,000 UNIT Acetaminophen (Tylenol Tab) 650 mg Q4H PRN PO 09/19/16 18:15 10/19/16 18:14 Piperacillin Sod/ Tazobactam Sod (Consult) 1 ea UD PRN N/A 09/19/16 20:16 10/19/16 20:15 Glucose (Glucose 40% Gel) 15-30 GRAMS 15 GRAMS... UD PRN PO 09/19/16 19:15 10/19/16 19:14 Glucose (Glucose Chew Tab) 4-8 Tablets 4 Tabl... UD PRN PO 09/19/16 19:15 10/19/16 19:14 Dextrose (Dextrose 50% 50ML Syringe) 25-50ML OF 50% DW IV FOR... UD PRN IV 09/19/16 19:15 10/19/16 19:14 Glucagon (Glucagon Inj) 1 mg UD PRN SQ 09/19/16 19:15 10/19/16 19:14 Miscellaneous Information (Consult Glycemic Management Pharmacy) 1 ea UD PRN N/A 09/19/16 19:20 10/19/16 19:19 Aspirin (Ecotrin Tab) 81 mg QAM PO 09/20/16 09:00 10/20/16 08:59 09/20/16 07:47 81 MG Docusate Sodium (coLACE CAP) 100 mg BID PO 09/19/16 21:00 10/19/16 20:59 09/20/16 07:47 100 MG Folic Acid (Folvite Tab) 1 mg DAILY PO 09/20/16 09:00 10/20/16 08:59 09/20/16 07:47 1 MG Insulin Glargine (Lantus Solostar Pen) 12 units PM SC 09/19/16 21:00 10/19/16 20:59 09/19/16 21:10 12 UNITS Metoprolol Tartrate (Lopressor Tab) 25 mg BID PO 09/19/16 21:00 10/19/16 20:59 09/20/16 07:48 25 MG Senna/Docusate Sodium (Senokot S Tab) 1 tab Q24H PRN PO 09/19/16 19:15 10/19/16 19:14 Cholecalciferol (Vitamin D Tab) 2,000 inter.unit DAILY PO 09/20/16 09:00 10/20/16 08:59 09/20/16 07:48 2,000 INTER.UNIT Ferrous Sulfate (Feosol Tab) 325 mg BID PO 09/19/16 21:00 10/19/16 20:59 09/20/16 07:47 325 MG Polyethylene (Miralax Powder Packet) 17 gm DAILY PRN PO 09/19/16 19:15 10/19/16 19:14 Daptomycin (Consult) 1 ea UD PRN N/A 09/19/16 20:30 10/19/16 20:29 Daptomycin 500 mg/ Sodium Chloride 60 ml @ 120 mls/hr Q24H IV 09/20/16 06:00 09/27/16 23:59 09/20/16 05:11 120 MLS/HR Piperacillin Sod/ Tazobactam Sod 4.5 gm/Dextrose 120 ml @ 30 mls/hr Q8H IV 09/19/16 22:00 09/26/16 21:59 09/20/16 06:05 30 MLS/HR Albuterol/ Ipratropium (Duoneb) 3 ml Q6R INH 09/20/16 03:00 10/20/16 02:59 09/20/16 07:01 3 ML Ondansetron HCl (Zofran Inj) 4 mg Q6H PRN IV 09/20/16 05:45 10/20/16 05:44 Furosemide (Lasix Tab) 20 mg QAM PO 09/20/16 10:37 10/20/16 10:36 09/20/16 11:27 20 MG Potassium Chloride (Klor-Con M10) 10 meq DAILY PO 09/20/16 10:37 10/20/16 10:36 09/20/16 11:27 10 MEQ Insulin Aspart (novoLOG ASPART) SLIDING SCALE If C... ACHS SC 09/20/16 11:45 10/20/16 11:44 09/20/16 12:22 2 UNITS Fluconazole (Diflucan Tab) 400 mg QAM PO 09/21/16 09:00 10/04/16 09:01 UN
[2016-09-20] MEDS: INSULIN GLARGINE SOLOSTAR 100 UNITS/ML 3 ML PEN SC SCH (20:22)
[2016-09-21] VITALS (15 sets, daily range): BP systolic 114–138; BP diastolic 54–75; PULSE 74–102; TEMP 36.5–37; O2SAT 90–100
[2016-09-21] MEDS: ALBUT/IPRATROP 3MG/0.5MG NEB 3 ML VIAL INH SCH ×4 (02:33→18:58)
[2016-09-21] MEDS: PIPERACILL/TAZOBAC IV 4.5 GM in DEXTROSE 5% 100ML IV SCH ×3 (05:36→22:06)
[2016-09-21] MEDS: DAPTOMYCIN IV 500 MG in NSS 50ML IV SCH (05:36)
[2016-09-21] MEDS: HEPARIN SOD 5000 UNIT/0.5 ML CARP SQ SCH ×3 (05:41→21:03)
[2016-09-21 05:59] LABS: BASO % 0.1 %; BASO ABS # 0.01 K/uL (0-0.2); EOS % 2.7 %; IG% 0.2 %; LYMPH % 6.4 %; LYMPH ABS # 0.65 K/uL (1.2-3.4); MEAN CELL VOLUME 87.7 fL (80-100); MEAN CORPUSCULAR HEMOGLOBIN 27.4 pg (25-34); MEAN CORPUSCULAR HGB CONC 31.2 g/dl (32-36); MONO % 8.9 %; NEUT % 81.7 %; PLATELET COUNT 165 K/uL (130-400); RED BLOOD COUNT 2.85 M/uL (4.7-6.1); WHITE BLOOD COUNT 10.12 K/uL (4.8-10.8)
[2016-09-21 06:28] LABS: BUN/CREATININE RATIO 22.5 (10-20); CALCIUM 8.2 mg/dl (8.5-10.1); CREATININE 1.8 mg/dl (0.60-1.40); MAGNESIUM 1.9 mg/dl (1.8-2.4); POTASSIUM 2.8 mmol/L (3.5-5.1)
[2016-09-21 06:29] LABS: COMPLETE YES
[2016-09-21] MEDS: DOCUSATE SODIUM 100 MG CAP PO SCH ×2 (07:18→21:10)
[2016-09-21] MEDS: FLUCONAZOLE 100 MG TAB PO SCH (07:19)
[2016-09-21] MEDS: POTASSIUM CHLORIDE 10 MEQ TABCR PO SCH ×3 (07:19→11:01)
[2016-09-21] MEDS: CHOLECALCIFEROL 1000 INTER.UNIT TAB PO SCH (07:20)
[2016-09-21] MEDS: FUROSEMIDE 20 MG TAB PO SCH (07:20)
[2016-09-21] MEDS: FERROUS SULFATE 325 MG TAB PO SCH ×2 (08:02→21:10)
[2016-09-21] MEDS: ASPIRIN 81 MG ECTAB PO SCH (08:02)
[2016-09-21] MEDS: INSULIN ASPART 100 UNITS/ML 3 ML PEN SC SCH ×4 (08:03→21:12)
[2016-09-21] MEDS: METOPROLOL TARTRATE 25 MG TAB PO SCH ×2 (08:03→21:10)
--- NOTE | 2016-09-21 11:30 | Progress Note ---
Internal Med Progress Note Date of Service: Sep 21, 2016. Provider Documentation: SUBJECTIVE: Patient does get agitated, hallucinates on and off Currently he is alert, oriented to place, person Denies any complaints. On 2 L oxygen OOB to chair OBJECTIVE: Vital Signs-as noted below Exam: GEN: AAOX3, no acute distress CARDIO: S1, S2 normal, no murmurs LUNGS: AEBE , no wheezing, rhonchi ABD: soft, non-tender, non-distended, BS present EXTREMITY: No edema ; LLE-toe gangrenous Lab data as noted below. ASSESSMENT & PLAN: 86 [facility] and admitted to the ICU for severe sepsis of uncertain origin. SEVERE SEPSIS - Resolved Unclear source. Possibilities considered: Pneumonia. PICC line, but cultures - negative. 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 Was started on levofloxacin outpatient for possible pneumonia. 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 -Plan is for surgery for 3rd toe amputation as planned prior to admission DM-II -ISS, Accuchecks CKD III -At baseline HX OF CAD -Stable -Held Statin due to on daptomycin CHRONIC ANEMIA -Stable CHRONIC ATRIAL FIBRILLATION -Not on anticoagulation (discontinued previously due to epistaxis and unsteady gait) DVT Px: Heparin SQ Code Status: DNR/DNI DISPOSITION Continue with tele monitoring Vital Signs: Date Time Temp Pulse Resp B/P (MAP) Pulse Ox O2 Delivery O2 Flow Rate FiO2 09/21/16 08:00 94 Nasal Cannula 2.0 09/21/16 08:00 37.0 97 20 121/62 (81) 94 Nasal Cannula 2.0 09/21/16 07:16 89 18 95 Nasal Cannula 2.0 09/21/16 04:02 99 20 133/63 (86) 93 Nasal Cannula 3.0 09/21/16 04:00 99 Nasal Cannula 3.0 09/21/16 02:33 96 18 99 Nasal Cannula 2.0 09/21/16 00:01 36.7 74 18 114/59 (77) 99 Nasal Cannula 3.0 09/20/16 23:59 99 Nasal Cannula 3.0 09/20/16 22:01 84 20 121/69 (86) 98 Nasal Cannula 3.0 09/20/16 20:01 37.1 97 18 134/63 (86) 95 Nasal Cannula 3.0 09/20/16 20:00 99 Nasal Cannula 3.0 09/20/16 19:18 83 18 99 Nasal Cannula 4.0 09/20/16 16:00 99 Nasal Cannula 4.0 09/20/16 13:55 74 18 98 Nasal Cannula 4.0 09/20/16 12:00 98 Nasal Cannula 4.0 09/20/16 12:00 36.7 81 20 120/64 (82) 98 Nasal Cannula 4.0 Lab Results: Results Past 24 Hours Test 09/20/16 11:37 09/20/16 16:13 09/20/16 20:05 09/21/16 05:36 Range/Units Procalcitonin 1.15 0-0.5 ng/ml Bedside Glucose 146 172 87 70-99 mg/dl Test 09/21/16 05:41 09/21/16 11:05 Range/Units White Blood Count 10.12 4.8-10.8 K/uL Red Blood Count 2.85 4.7-6.1 M/uL Hemoglobin 7.8 14.0-18.0 g/dL Hematocrit 25.0 42-52 % Mean Corpuscular Volume 87.7 80-100 fL Mean Corpuscular Hemoglobin 27.4 25-34 pg Mean Corpuscular Hemoglobin Concent 31.2 32-36 g/dl Platelet Count 165 130-400 K/uL Mean Platelet Volume 10.0 7.4-10.4 fL Neutrophils (%) (Auto) 81.7 % Lymphocytes (%) (Auto) 6.4 % Monocytes (%) (Auto) 8.9 % Eosinophils (%) (Auto) 2.7 % Basophils (%) (Auto) 0.1 % Neutrophils # (Auto) 8.27 1.4-6.5 K/uL Lymphocytes # (Auto) 0.65 1.2-3.4 K/uL Monocytes # (Auto) 0.90 0.11-0.59 K/uL Eosinophils # (Auto) 0.27 0-0.5 K/uL Basophils # (Auto) 0.01 0-0.2 K/uL RDW Standard Deviation 57.0 36.4-46.3 fL RDW Coefficient of Variation 17.6 11.5-14.5 % Immature Granulocyte % (Auto) 0.2 % Immature Granulocyte # (Auto) 0.02 0.00-0.02 K/uL Red Blood Cell Morphology Unremarkable Sodium Level 142 136-145 mmol/L Potassium Level 2.8 3.5-5.1 mmol/L Chloride Level 105 98-107 mmol/L Carbon Dioxide Level 30 21-32 mmol/L Anion Gap 7.0 3-11 mmol/L Blood Urea Nitrogen 40 7-18 mg/dl Creatinine 1.80 0.60-1.40 mg/dl Est Creatinine Clear Calc Drug Dose 31.7 ml/min Estimated GFR () 38.1 Estimated GFR (Non- 32.9 BUN/Creatinine Ratio 22.5 10-20 Random Glucose 77 70-99 mg/dl Calcium Level 8.2 8.5-10.1 mg/dl Magnesium Level 1.9 1.8-2.4 mg/dl Bedside Glucose 182 70-99 mg/dl
--- NOTE | 2016-09-21 12:47 | Pharmacy Progress Note ---
Glycemic Control Progress Note Date of Service Sep 21, 2016. Scope Glycemic Pharmacist consulted for glycemic control to write orders per [facility] inpatient glycemic control protocol. Objective Accuchecks BSG (last 24hrs): Test 09/20/16 16:13 09/20/16 20:05 09/21/16 05:36 09/21/16 05:41 Bedside Glucose 146 mg/dl (70-99) 172 mg/dl (70-99) 87 mg/dl (70-99) Random Glucose 77 mg/dl (70-99) Test 09/21/16 11:05 Bedside Glucose 182 mg/dl (70-99) HbA1c: Test 09/20/16 06:20 Hemoglobin A1c 6.5 % (4.5-5.6) H Recent Pertinent Medications The patient is currently receiving: * Basal insulin: Lantus 12 units every 24 hours (2100) * Correctional Insulin: Novolog Correction per scale ACHS Goal Range: Low 140 mg/dL - High 180 mg/dL Correction Factor: 20 mg/dL/unit * Prandial insulin: Per carb ratio of 1 unit per 7 grams CHO consumed Outpatient Anti-Diabetic Meds * Novolog SSI ACHS + 5 units with lunch and 10 units with supper * Lantus 12 units HS * A1c = 6.5 % 09/20/16 Assessment & Plan ASSESSMENT: * 86 yo M known to pharmacy from recent admission earlier this month * Patient is currently receiving an average of 22 units of insulin per day * 12 units of basal insulin * 10 units of prandial/correctional insulin * BSGs ranging 125-172 over the past 24hrs * Anticipating insulin regimen will need decreased for the next 24hrs d/t : * AM Fasting BSG = 77 therefore Basal insulin needs decreased 20%- reevaluate tomorrow * ADA & AACE recommend a goal blood sugar range 140-180 mg/dl for the majority of critically ill & non-critically ill patients. However, more stringent targets may be selected in individual cases. Tighten to 110-140 mg/dL as patient to be transferred out of ICU in the next 24 hours and this goal range worked in prior admission. PLAN FOR INPATIENT GLYCEMIC CONTROL: * Basal insulin: Decrease Lantus 10 units SQ HS * Bolus Insulin: Continue NOVOLOG per scale ACHS * Goal Range: Low 110 mg/dL - High 140 mg/dL * Correction Factor: 20 mg/dL/unit * Nutritional / Prandial insulin per carb ratio of 1 unit per 7 grams CHO consumed * A1c 6.5% this admission indicative of good glycemic control- add to D/C instructions * Please note that the plan above was derived based on current level of insulin resistance and hospital stress. These recommendations are appropriate for inpatient admission only. Plan of care upon discharge will need to be reassessed to avoid potential outpatient hypo/hyperglycemia. Thank you.
[2016-09-21] MEDS ORDERED: LEVOFLOXACIN 750MG / D5W IV SCH (17:00)
[2016-09-21] MEDS: INSULIN GLARGINE SOLOSTAR 100 UNITS/ML 3 ML PEN SC SCH (21:12)
[2016-09-22] VITALS (16 sets, daily range): BP systolic 112–164; BP diastolic 46–95; PULSE 82–109; TEMP 36.4–36.6; O2SAT 90–98
[2016-09-22] MEDS: ALBUT/IPRATROP 3MG/0.5MG NEB 3 ML VIAL INH SCH ×4 (02:51→18:56)
[2016-09-22] MEDS ORDERED: NURSING VERBAL MED ORDER ONE (04:00)
[2016-09-22] MEDS: DAPTOMYCIN IV 500 MG in NSS 50ML IV SCH (05:33)
[2016-09-22] MEDS: PIPERACILL/TAZOBAC IV 4.5 GM in DEXTROSE 5% 100ML IV SCH ×3 (05:39→21:33)
[2016-09-22] MEDS: ASPIRIN 81 MG ECTAB PO SCH ×2 (08:08→08:48)
[2016-09-22] MEDS: METOPROLOL TARTRATE 25 MG TAB PO SCH ×2 (08:34→21:29)
[2016-09-22] MEDS: FERROUS SULFATE 325 MG TAB PO SCH ×2 (08:34→21:30)
[2016-09-22] MEDS: FUROSEMIDE 20 MG TAB PO SCH (08:34)
[2016-09-22] MEDS: CHOLECALCIFEROL 1000 INTER.UNIT TAB PO SCH (08:35)
[2016-09-22] MEDS: FLUCONAZOLE 100 MG TAB PO SCH (08:35)
[2016-09-22] MEDS: POTASSIUM CHLORIDE 10 MEQ TABCR PO SCH (08:38)
[2016-09-22] MEDS: DOCUSATE SODIUM 100 MG CAP PO SCH ×2 (08:39→21:29)
[2016-09-22 09:01] LABS: BASO % 0.1 %; BASO ABS # 0.01 K/uL (0-0.2); EOS % 0.9 %; HEMATOCRIT 25.8 % (42-52); IG% 0.3 %; LYMPH % 8.2 %; LYMPH ABS # 0.85 K/uL (1.2-3.4); MEAN CELL VOLUME 89.3 fL (80-100); MEAN CORPUSCULAR HGB CONC 31.4 g/dl (32-36); MEAN PLATELET VOLUME 9.8 fL (7.4-10.4); MONO % 7.4 %; NEUT % 83.1 %; PLATELET COUNT 165 K/uL (130-400); RED BLOOD COUNT 2.89 M/uL (4.7-6.1); WHITE BLOOD COUNT 10.34 K/uL (4.8-10.8)
[2016-09-22 09:33] LABS: BUN/CREATININE RATIO 18.8 (10-20); CALCIUM 8.7 mg/dl (8.5-10.1); POTASSIUM 3.6 mmol/L (3.5-5.1)
[2016-09-22 09:34] LABS: ANISOCYTOSIS PRESENT; COMPLETE YES
[2016-09-22] MEDS: INSULIN ASPART 100 UNITS/ML 3 ML PEN SC SCH ×4 (09:56→21:32)
--- NOTE | 2016-09-22 10:18 | Progress Note ---
Internal Med Progress Note Date of Service: Sep 22, 2016. Provider Documentation: SUBJECTIVE: Patient is disoriented to person, place and time, but able to have conversations. Denies any complaints. Coughing + Gurgling + On 2 L oxygen OOB to chair OBJECTIVE: Vital Signs-as noted below Exam: GEN: AAOX3, no acute distress CARDIO: S1, S2 normal, no murmurs LUNGS: AEBE , no wheezing, rhonchi ABD: soft, non-tender, non-distended, BS present EXTREMITY: No edema ; LLE-toe gangrenous Lab data as noted below. ASSESSMENT & PLAN: 86 yo M presented from [facility] with shortness of breath and hypoxia and admitted to the ICU for severe sepsis of uncertain origin. SEVERE SEPSIS - Resolved Unclear source. Likely : Pneumonia. Other possibilities considered: PICC line, but cultures - negative. 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 Was started on levofloxacin outpatient for possible pneumonia. 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 -Plan was for surgery for 3rd toe amputation as planned prior to admission on 09/22/16, but cancelled for now DM-II -ISS, Accuchecks CKD III -At baseline HX OF CAD -Stable -Held Statin due to on daptomycin CHRONIC ANEMIA -Stable CHRONIC ATRIAL FIBRILLATION -Not on anticoagulation (discontinued previously due to epistaxis and unsteady gait) DVT Px: Heparin SQ Code Status: DNR/DNI DISPOSITION Medical mx in progress PT/OT ordered Will likely need rehab. Discussed with son by bedside and updated. Vital Signs: Date Time Temp Pulse Resp B/P (MAP) Pulse Ox O2 Delivery O2 Flow Rate FiO2 09/22/16 08:45 82 164/95 (118) 09/22/16 07:17 36.5 105 18 153/75 (101) 95 Nasal Cannula 2.0 09/22/16 07:09 89 18 92 Nasal Cannula 1.0 09/22/16 04:44 36.5 103 20 133/71 (91) 92 Nasal Cannula 2.0 09/22/16 04:00 95 Nasal Cannula 2.0 09/22/16 00:00 36.6 109 18 142/74 (96) 95 09/22/16 00:00 95 Nasal Cannula 2.0 09/21/16 21:09 102 137/60 (85) 09/21/16 20:21 36.7 92 20 134/58 (83) 90 Room Air 09/21/16 20:00 95 Room Air 09/21/16 18:58 88 18 93 Room Air 09/21/16 16:00 95 Room Air 09/21/16 15:54 36.5 99 19 138/54 (82) 95 Room Air 09/21/16 14:08 83 18 96 Nasal Cannula 2.0 09/21/16 13:59 36.5 86 20 131/75 (93) 100 Nasal Cannula 1.5 09/21/16 12:00 96 Nasal Cannula 2.0 09/21/16 12:00 36.7 88 20 119/60 (79) 96 Nasal Cannula 2.0 Lab Results: Results Past 24 Hours Test 09/21/16 11:05 09/21/16 13:28 09/21/16 16:31 09/21/16 20:42 Range/Units Bedside Glucose 182 141 109 150 70-99 mg/dl Test 09/22/16 07:38 09/22/16 08:04 Range/Units Bedside Glucose 153 70-99 mg/dl White Blood Count 10.34 4.8-10.8 K/uL Red Blood Count 2.89 4.7-6.1 M/uL Hemoglobin 8.1 14.0-18.0 g/dL Hematocrit 25.8 42-52 % Mean Corpuscular Volume 89.3 80-100 fL Mean Corpuscular Hemoglobin 28.0 25-34 pg Mean Corpuscular Hemoglobin Concent 31.4 32-36 g/dl Platelet Count 165 130-400 K/uL Mean Platelet Volume 9.8 7.4-10.4 fL Neutrophils (%) (Auto) 83.1 % Lymphocytes (%) (Auto) 8.2 % Monocytes (%) (Auto) 7.4 % Eosinophils (%) (Auto) 0.9 % Basophils (%) (Auto) 0.1 % Neutrophils # (Auto) 8.59 1.4-6.5 K/uL Lymphocytes # (Auto) 0.85 1.2-3.4 K/uL Monocytes # (Auto) 0.77 0.11-0.59 K/uL Eosinophils # (Auto) 0.09 0-0.5 K/uL Basophils # (Auto) 0.01 0-0.2 K/uL RDW Standard Deviation 58.9 36.4-46.3 fL RDW Coefficient of Variation 17.9 11.5-14.5 % Immature Granulocyte % (Auto) 0.3 % Immature Granulocyte # (Auto) 0.03 0.00-0.02 K/uL Anisocytosis PRESENT Sodium Level 143 136-145 mmol/L Potassium Level 3.6 3.5-5.1 mmol/L Chloride Level 105 98-107 mmol/L Carbon Dioxide Level 29 21-32 mmol/L Anion Gap 9.0 3-11 mmol/L Blood Urea Nitrogen 38 7-18 mg/dl Creatinine 2.00 0.60-1.40 mg/dl Est Creatinine Clear Calc Drug Dose 26.4 ml/min Estimated GFR () 33.5 Estimated GFR (Non- 28.9 BUN/Creatinine Ratio 18.8 10-20 Random Glucose 141 70-99 mg/dl Calcium Level 8.7 8.5-10.1 mg/dl
[2016-09-22] MEDS ORDERED: POTASSIUM CHLORIDE 10 MEQ TABCR PO STA (10:24)
--- NOTE | 2016-09-22 12:44 | Medical Consult ---
Consultation Note Date of Service Sep 22, 2016. Consultation Note Patient known to us. 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 Will hold off on amputation at this time and let him recover from his medical conditions. Will reschedule him for 2 weeks as an outpatient. Thank you very much for letting me participate in the care of this patient.
--- NOTE | 2016-09-22 13:27 | DIAGNOSTIC IMAGING REPORT ---
SINGLE VIEW CHEST CLINICAL HISTORY: Hypoxia. FINDINGS: An AP, portable, upright chest radiograph is compared to study dated 09/20/2016 and correlated with chest CT dated 02/06/2008. The examination is degraded by portable technique and patient rotation. The patient is status post midline sternotomy and cardiac valve surgery. The heart is enlarged and there is atherosclerotic calcification of the thoracic aorta. There is pulmonary vascular congestion. Multifocal airspace opacities are identified. Small pleural effusions are seen. No pneumothorax is seen. The skeletal structures are osteopenic. The bony thorax is grossly intact. IMPRESSION: 1. Cardiomegaly with evidence of congestive failure. 2. Multifocal bilateral airspace opacities likely represent interstitial edema and have not significantly changed from 09/20/2016. Correlate clinically for evidence of superimposed pneumonia. Continued radiographic follow-up to resolution is recommended. 3. Small pleural effusions. Electronically signed by: Julian Hernández M.D. 09/22/2016 1:26 PM Dictated Date/Time: 09/22/2016 1:24 PM
--- NOTE | 2016-09-22 14:10 | Infectious Disease Progress Nt ---
Progress Note Date of Service Sep 22, 2016. Subjective Pt evaluation today including: conversation w/ patient, physical exam, chart review, lab review, review of studies, conversation w/ ada accommodation consultant, review of inpatient medication list Somewhat confused this morning. However offers no complaints. Denies shortness of breath or chest pain. No fever. Urine culture positive for non albicans Jess. Now on fluconazole. All Other Systems: Reviewed and Negative Medications Current Inpatient Medications Medications (Trade) Dose Ordered Sig/Rosemarie Route Start Time Stop Time Status Last Admin Dose Admin Heparin Sodium (Porcine) (Heparin Sq 5000 Unit/0.5ml) 5,000 unit Q8 SQ 09/19/16 22:00 10/19/16 18:14 Future Hold 09/21/16 14:34 5,000 UNIT Acetaminophen (Tylenol Tab) 650 mg Q4H PRN PO 09/19/16 18:15 10/19/16 18:14 Piperacillin Sod/ Tazobactam Sod (Consult) 1 ea UD PRN N/A 09/19/16 20:16 10/19/16 20:15 Glucose (Glucose 40% Gel) 15-30 GRAMS 15 GRAMS... UD PRN PO 09/19/16 19:15 10/19/16 19:14 Glucose (Glucose Chew Tab) 4-8 Tablets 4 Tabl... UD PRN PO 09/19/16 19:15 10/19/16 19:14 Dextrose (Dextrose 50% 50ML Syringe) 25-50ML OF 50% DW IV FOR... UD PRN IV 09/19/16 19:15 10/19/16 19:14 Glucagon (Glucagon Inj) 1 mg UD PRN SQ 09/19/16 19:15 10/19/16 19:14 Miscellaneous Information (Consult Glycemic Management Pharmacy) 1 ea UD PRN N/A 09/19/16 19:20 10/19/16 19:19 Aspirin (Ecotrin Tab) 81 mg QAM PO 09/20/16 09:00 10/20/16 08:59 09/21/16 08:02 81 MG Docusate Sodium (coLACE CAP) 100 mg BID PO 09/19/16 21:00 10/19/16 20:59 09/22/16 08:39 100 MG Folic Acid (Folvite Tab) 1 mg DAILY PO 09/20/16 09:00 10/20/16 08:59 09/22/16 08:39 1 MG Metoprolol Tartrate (Lopressor Tab) 25 mg BID PO 09/19/16 21:00 10/19/16 20:59 09/22/16 08:34 25 MG Senna/Docusate Sodium (Senokot S Tab) 1 tab Q24H PRN PO 09/19/16 19:15 10/19/16 19:14 Cholecalciferol (Vitamin D Tab) 2,000 inter.unit DAILY PO 09/20/16 09:00 10/20/16 08:59 09/22/16 08:35 2,000 INTER.UNIT Ferrous Sulfate (Feosol Tab) 325 mg BID PO 09/19/16 21:00 10/19/16 20:59 09/22/16 08:34 325 MG Polyethylene (Miralax Powder Packet) 17 gm DAILY PRN PO 09/19/16 19:15 10/19/16 19:14 Daptomycin (Consult) 1 ea UD PRN N/A 09/19/16 20:30 10/19/16 20:29 Piperacillin Sod/ Tazobactam Sod 4.5 gm/Dextrose 120 ml @ 30 mls/hr Q8H IV 09/19/16 22:00 09/26/16 21:59 09/22/16 05:39 30 MLS/HR Albuterol/ Ipratropium (Duoneb) 3 ml Q6R INH 09/20/16 03:00 10/20/16 02:59 09/22/16 07:09 3 ML Ondansetron HCl (Zofran Inj) 4 mg Q6H PRN IV 09/20/16 05:45 10/20/16 05:44 Furosemide (Lasix Tab) 20 mg QAM PO 09/20/16 10:37 10/20/16 10:36 09/22/16 08:34 20 MG Potassium Chloride (Klor-Con M10) 10 meq DAILY PO 09/20/16 10:37 10/20/16 10:36 09/22/16 08:38 10 MEQ Insulin Aspart (novoLOG ASPART) SLIDING SCALE If C... ACHS SC 09/20/16 11:45 10/20/16 11:44 09/22/16 09:56 1 UNITS Fluconazole (Diflucan Tab) 200 mg QAM PO 09/21/16 09:00 10/03/16 09:01 09/22/16 08:35 200 MG Insulin Glargine (Lantus Solostar Pen) 10 units PM SC 09/21/16 21:00 10/21/16 20:59 09/21/16 21:12 10 UNITS Daptomycin 500 mg/ Sodium Chloride 60 ml @ 120 mls/hr Q48H IV 09/24/16 06:00 09/27/16 23:59 Objective Vital Signs Date Time Temp Pulse Resp B/P (MAP) Pulse Ox O2 Delivery O2 Flow Rate FiO2 09/22/16 12:08 36.4 91 22 136/46 (76) 90 Nasal Cannula 2.0 09/22/16 12:00 95 Nasal Cannula 3.0 09/22/16 08:45 82 164/95 (118) 09/22/16 08:00 95 Nasal Cannula 2.0 09/22/16 07:17 36.5 105 18 153/75 (101) 95 Nasal Cannula 2.0 09/22/16 07:09 89 18 92 Nasal Cannula 1.0 09/22/16 04:44 36.5 103 20 133/71 (91) 92 Nasal Cannula 2.0 09/22/16 04:00 95 Nasal Cannula 2.0 09/22/16 00:00 36.6 109 18 142/74 (96) 95 09/22/16 00:00 95 Nasal Cannula 2.0 09/21/16 21:09 102 137/60 (85) 09/21/16 20:21 36.7 92 20 134/58 (83) 90 Room Air 09/21/16 20:00 95 Room Air 09/21/16 18:58 88 18 93 Room Air 09/21/16 16:00 95 Room Air 09/21/16 15:54 36.5 99 19 138/54 (82) 95 Room Air 09/21/16 14:08 83 18 96 Nasal Cannula 2.0 Physical Exam General Appearance: WD/WN, no apparent distress Eyes: normal inspection, EOMI, sclerae normal ENT: normal ENT inspection, pharynx normal Neck: supple, no adenopathy, thyroid normal, trachea midline Respiratory/Chest: chest non-tender, no respiratory distress, + rhonchi Cardiovascular: no gallop, no murmur, + irregularly irregular Abdomen: normal bowel sounds, non tender, soft, no organomegaly Extremities: non-tender, no calf tenderness Neurologic/Psychiatric: alert, + disoriented Skin: normal color, no rash, + pertinent finding ( Dry gangrene right 3rd toe) Laboratory Results RUN DATE: 09/21/16 [facility] LAB PAGE 1 RUN TIME: 1304 Specimen Inquiry PATIENT: MIGUEL GAFFNEY Arlene HOLLIDAY LOC: [facility] # : [id number] AGE/SX: 86/M ROOM: [facility] REG : 09/19/[address]: Pooja. Young S : 1930 BED: 2 DIS : STATUS: ADM IN TLOC: SPEC #: [id number] MARY: 09/19/16-1644 STATUS: COMP REQ #: [id number] RECD: 09/19/[address]: Ching Thompson DO SOURCE: UR, CC ENTR: 09/19/16-[address] [facility] [address]: Seng Narvaez III, M.D. [facility]: ORDERED: CULTURE URCLEAN Procedure Result Verified Site URINE CULTURE Final 09/21/16-1304 Organism 1 YEAST NOT JESS ALBICANS COLONY COUNT >100,000 CFU/ml SENS NO SENSITIVITY TO FOLLOW Last 24 Hours Test 09/21/16 16:31 09/21/16 20:42 09/22/16 07:38 09/22/16 08:04 Bedside Glucose 109 mg/dl 150 mg/dl 153 mg/dl White Blood Count 10.34 K/uL Red Blood Count 2.89 M/uL Hemoglobin 8.1 g/dL Hematocrit 25.8 % Mean Corpuscular Volume 89.3 fL Mean Corpuscular Hemoglobin 28.0 pg Mean Corpuscular Hemoglobin Concent 31.4 g/dl Platelet Count 165 K/uL Mean Platelet Volume 9.8 fL Neutrophils (%) (Auto) 83.1 % Lymphocytes (%) (Auto) 8.2 % Monocytes (%) (Auto) 7.4 % Eosinophils (%) (Auto) 0.9 % Basophils (%) (Auto) 0.1 % Neutrophils # (Auto) 8.59 K/uL Lymphocytes # (Auto) 0.85 K/uL Monocytes # (Auto) 0.77 K/uL Eosinophils # (Auto) 0.09 K/uL Basophils # (Auto) 0.01 K/uL RDW Standard Deviation 58.9 fL RDW Coefficient of Variation 17.9 % Immature Granulocyte % (Auto) 0.3 % Immature Granulocyte # (Auto) 0.03 K/uL Anisocytosis PRESENT Sodium Level 143 mmol/L Potassium Level 3.6 mmol/L Chloride Level 105 mmol/L Carbon Dioxide Level 29 mmol/L Anion Gap 9.0 mmol/L Blood Urea Nitrogen 38 mg/dl Creatinine 2.00 mg/dl Est Creatinine Clear Calc Drug Dose 26.4 ml/min Estimated GFR () 33.5 Estimated GFR (Non- 28.9 BUN/Creatinine Ratio 18.8 Random Glucose 141 mg/dl Calcium Level 8.7 mg/dl Test 09/22/16 11:31 Bedside Glucose 147 mg/dl SINGLE VIEW CHEST CLINICAL HISTORY: Hypoxia. FINDINGS: An AP, portable, upright chest radiograph is compared to study dated 09/20/2016 and correlated with chest CT dated 02/06/2008. The examination is degraded by portable technique and patient rotation. The patient is status post midline sternotomy and cardiac valve surgery. The heart is enlarged and there is atherosclerotic calcification of the thoracic aorta. There is pulmonary vascular congestion. Multifocal airspace opacities are identified. Small pleural effusions are seen. No pneumothorax is seen. The skeletal structures are osteopenic. The bony thorax is grossly intact. IMPRESSION: 1. Cardiomegaly with evidence of congestive failure. 2. Multifocal bilateral airspace opacities likely represent interstitial edema and have not significantly changed from 09/20/2016. Correlate clinically for evidence of superimposed pneumonia. Continued radiographic follow-up to resolution is recommended. 3. Small pleural effusions. 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 Will continue patient on present RX as will cover treatment of gangrenous toe. length of therapy will be determined by clinical response.
[2016-09-22] MEDS: INSULIN GLARGINE SOLOSTAR 100 UNITS/ML 3 ML PEN SC SCH (21:32)
[2016-09-23] VITALS (11 sets, daily range): BP systolic 125–148; BP diastolic 61–80; PULSE 67–118; TEMP 36.5–36.8; O2SAT 84–100
[2016-09-23] MEDS: ALBUT/IPRATROP 3MG/0.5MG NEB 3 ML VIAL INH SCH ×4 (01:17→19:58)
[2016-09-23] MEDS: PIPERACILL/TAZOBAC IV 4.5 GM in DEXTROSE 5% 100ML IV SCH ×3 (05:53→22:56)
[2016-09-23 06:53] LABS: MEAN CELL VOLUME 90.3 fL (80-100); MEAN CORPUSCULAR HEMOGLOBIN 27.7 pg (25-34); MEAN CORPUSCULAR HGB CONC 30.7 g/dl (32-36); MEAN PLATELET VOLUME 10.5 fL (7.4-10.4); PLATELET COUNT 191 K/uL (130-400); WHITE BLOOD COUNT 14.66 K/uL (4.8-10.8)
[2016-09-23] MEDS: POTASSIUM CHLORIDE 10 MEQ TABCR PO SCH (07:23)
[2016-09-23] MEDS: FUROSEMIDE 20 MG TAB PO SCH (07:23)
[2016-09-23 07:43] LABS: BUN/CREATININE RATIO 21.3 (10-20); CALCIUM 8.7 mg/dl (8.5-10.1); POTASSIUM 3.7 mmol/L (3.5-5.1)
[2016-09-23] MEDS ORDERED: FUROSEMIDE INJ 20 MG in SYRINGE 0 ML IV ONE (08:00)
[2016-09-23] MEDS: FERROUS SULFATE 325 MG TAB PO SCH ×2 (08:57→20:23)
[2016-09-23] MEDS: CHOLECALCIFEROL 1000 INTER.UNIT TAB PO SCH (08:58)
[2016-09-23] MEDS: FLUCONAZOLE 100 MG TAB PO SCH (08:58)
[2016-09-23] MEDS: METOPROLOL TARTRATE 25 MG TAB PO SCH ×2 (08:59→20:23)
[2016-09-23] MEDS: INSULIN ASPART 100 UNITS/ML 3 ML PEN SC SCH ×4 (09:18→20:31)
[2016-09-23] MEDS: ASPIRIN 81 MG ECTAB PO SCH (10:30)
--- NOTE | 2016-09-23 11:09 | Progress Note ---
Internal Med Progress Note Date of Service: Sep 23, 2016. Provider Documentation: SUBJECTIVE: Patient is disoriented to person, place and time, but able to have conversations. Denies any complaints. Coughing + Gurgling + Had a mild episode of epistaxis, resolved spontaneously On 3 L oxygen OBJECTIVE: Vital Signs-as noted below Exam: GEN: AAOX3, no acute distress CARDIO: S1, S2 normal, no murmurs LUNGS: AEBE , no wheezing, rhonchi ABD: soft, non-tender, non-distended, BS present EXTREMITY: No edema ; LLE-toe gangrenous Lab data as noted below. ASSESSMENT & PLAN: 86 yo M presented from [facility] with shortness of breath and hypoxia and admitted to the ICU for severe sepsis of uncertain origin. ACUTE HYPOXIC RESPIRATORY FAILURE - Worsening today Likely secondary to CHF exacerbation /Pneumonia -IV lasix as below -On 3 L oxygen - wean as tolerated -Speech therapy done- Regular diet with thin liquids with aspiration precautions recommended. CHF EXACERBATION, DIASTOLIC -On lasix 20 mg ---> Increase to 20 mg IV BID -CXR - CHF -Monitor EPISTAXIS Had just one mild episode -Resolved by itself -Aspirin was held today SEVERE SEPSIS - Resolved Unclear source. Likely : Pneumonia. Other possibilities considered: PICC line, but cultures - negative. 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 Was started on levofloxacin outpatient for possible pneumonia. 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 -Plan was for surgery for 3rd toe amputation as planned prior to admission on 09/22/16, but cancelled for now,. Will need to be rescheduled out patient after recovers from this hospitalization per discussion with Dr Jefferson DM-II -ISS, Accuchecks CKD III -At baseline HX OF CAD -Stable -Held Statin due to on daptomycin CHRONIC ANEMIA -Stable CHRONIC ATRIAL FIBRILLATION -Not on anticoagulation (discontinued previously due to epistaxis and unsteady gait) DVT Px: Heparin SQ Code Status: DNR/DNI DISPOSITION Medical mx in progress PT/OT ordered Will likely need rehab. Discussed with son by bedside and updated. Vital Signs: Date Time Temp Pulse Resp B/P (MAP) Pulse Ox O2 Delivery O2 Flow Rate FiO2 09/23/16 08:00 95 Nasal Cannula 5.0 09/23/16 07:37 36.8 106 90 125/68 (87) 90 Nasal Cannula 3.0 09/23/16 04:00 36.5 97 24 125/77 (93) 92 Nasal Cannula 3.0 09/23/16 04:00 Nasal Cannula 3.0 09/22/16 23:59 Nasal Cannula 3.0 09/22/16 23:43 36.5 92 20 112/57 (75) 98 Nasal Cannula 3.0 09/22/16 20:00 95 Nasal Cannula 2.0 09/22/16 19:45 36.5 103 20 128/64 (85) 91 Room Air 09/22/16 18:57 89 18 91 Room Air 09/22/16 16:03 36.6 109 20 122/63 (82) 91 Nasal Cannula 3.0 09/22/16 16:00 95 Nasal Cannula 2.0 09/22/16 14:06 100 18 90 Room Air 09/22/16 12:08 36.4 91 22 136/46 (76) 90 Nasal Cannula 2.0 09/22/16 12:00 95 Nasal Cannula 3.0 Lab Results: Results Past 24 Hours Test 09/22/16 11:31 09/22/16 16:34 09/22/16 20:36 09/23/16 06:10 Range/Units Bedside Glucose 147 184 173 70-99 mg/dl White Blood Count 14.66 4.8-10.8 K/uL Red Blood Count 3.10 4.7-6.1 M/uL Hemoglobin 8.6 14.0-18.0 g/dL Hematocrit 28.0 42-52 % Mean Corpuscular Volume 90.3 80-100 fL Mean Corpuscular Hemoglobin 27.7 25-34 pg Mean Corpuscular Hemoglobin Concent 30.7 32-36 g/dl RDW Standard Deviation 60.0 36.4-46.3 fL RDW Coefficient of Variation 18.3 11.5-14.5 % Platelet Count 191 130-400 K/uL Mean Platelet Volume 10.5 7.4-10.4 fL Sodium Level 145 136-145 mmol/L Potassium Level 3.7 3.5-5.1 mmol/L Chloride Level 106 98-107 mmol/L Carbon Dioxide Level 29 21-32 mmol/L Anion Gap 10.0 3-11 mmol/L Blood Urea Nitrogen 43 7-18 mg/dl Creatinine 2.00 0.60-1.40 mg/dl Est Creatinine Clear Calc Drug Dose 26.4 ml/min Estimated GFR () 33.5 Estimated GFR (Non- 28.9 BUN/Creatinine Ratio 21.3 10-20 Random Glucose 148 70-99 mg/dl Calcium Level 8.7 8.5-10.1 mg/dl Chemistry Specimen Hemolysis Test 09/23/16 07:38 Range/Units Bedside Glucose 157 70-99 mg/dl
--- NOTE | 2016-09-23 11:20 | Pharmacy Progress Note ---
Glycemic: Assessment & Plan Date of Service Sep 23, 2016. Assessment & Plan Outpatient Anti-diabetic Regimen: * Novolog SSI ACHS + 5 units with lunch and 10 units with supper * Lantus 12 units HS * A1c = 6.5 % 09/20/16 ASSESSMENT: * Patient's BSGs have been reasonable for the past 48+ hours, with some intermittent mild hyperglycemia. * Will consider increasing Lantus dose slightly this evening in an attempt for better glycemic control. * Patient's appetite has been fairly poor, with minimal carb intake. PLAN FOR INPATIENT GLYCEMIC CONTROL: * Increase basal insulin to LANTUS 12 units SQ HS * Correctional Insulin with NOVOLOG per scale ACHS * Goal Range: Low 110 mg/dL - High 140 mg/dL * Correction Factor: 20 mg/dL/unit * Nutritional / Prandial insulin per carb ratio of 1 unit per 7 grams CHO consumed * A1c 6.5% this admission indicative of good glycemic control- add to D/C instructions * Please note that the plan above was derived based on current level of insulin resistance and hospital stress. These recommendations are appropriate for inpatient admission only. Plan of care upon discharge will need to be reassessed to avoid potential outpatient hypo/hyperglycemia. Thank you.
[2016-09-23] MEDS: DOCUSATE SODIUM 100 MG CAP PO SCH ×2 (13:14→20:23)
[2016-09-23] MEDS: FUROSEMIDE INJ 40 MG in SYRINGE 0 ML IV SCH (20:23)
[2016-09-23] MEDS: INSULIN GLARGINE SOLOSTAR 100 UNITS/ML 3 ML PEN SC SCH (20:30)
[2016-09-24] VITALS (8 sets, daily range): BP systolic 109–128; BP diastolic 53–73; PULSE 60–105; TEMP 36.3–36.6; O2SAT 92–100
[2016-09-24] MEDS: ALBUT/IPRATROP 3MG/0.5MG NEB 3 ML VIAL INH SCH ×4 (03:00→19:00)
[2016-09-24] MEDS: DAPTOMYCIN IV 500 MG in NSS 50ML IV SCH (06:02)
[2016-09-24] MEDS: PIPERACILL/TAZOBAC IV 4.5 GM in DEXTROSE 5% 100ML IV SCH (07:07)
[2016-09-24] MEDS: DOCUSATE SODIUM 100 MG CAP PO SCH ×2 (08:19→22:01)
[2016-09-24] MEDS: ASPIRIN 81 MG ECTAB PO SCH (08:19)
[2016-09-24] MEDS: METOPROLOL TARTRATE 25 MG TAB PO SCH ×2 (08:20→22:00)
[2016-09-24] MEDS: CHOLECALCIFEROL 1000 INTER.UNIT TAB PO SCH (08:20)
[2016-09-24] MEDS: FLUCONAZOLE 100 MG TAB PO SCH (08:20)
[2016-09-24] MEDS: FERROUS SULFATE 325 MG TAB PO SCH ×2 (08:20→22:00)
[2016-09-24] MEDS: POTASSIUM CHLORIDE 10 MEQ TABCR PO SCH (08:21)
[2016-09-24] MEDS: INSULIN ASPART 100 UNITS/ML 3 ML PEN SC SCH ×4 (08:23→21:00)
[2016-09-24 08:48] LABS: BLOOD UREA NITROGEN 45 mg/dl (7-18); BUN/CREATININE RATIO 22.4 (10-20); CALCIUM 9.1 mg/dl (8.5-10.1); CARBON DIOXIDE 35 mmol/L (21-32); CHLORIDE 103 mmol/L (98-107); GLUCOSE 93 mg/dl (70-99); SODIUM 144 mmol/L (136-145)
--- NOTE | 2016-09-24 10:14 | Progress Note ---
Internal Med Progress Note Date of Service: Sep 24, 2016. Provider Documentation: SUBJECTIVE: Patient is disoriented to person, place and time, but able to have conversations. Denies any complaints. Cough + No c/o SOB On 3 L oxygen OBJECTIVE: Vital Signs-as noted below Exam: GEN: AAOX3, no acute distress CARDIO: S1, S2 normal, no murmurs LUNGS: AEBE decreased, few crackles ABD: soft, non-tender, non-distended, BS present EXTREMITY: No edema ; LLE-toe gangrenous Lab data as noted below. ASSESSMENT & PLAN: 86 yo M presented from [facility] with shortness of breath and hypoxia and admitted to the ICU for severe sepsis of uncertain origin. ACUTE HYPOXIC RESPIRATORY FAILURE - Slightly improved Likely secondary to CHF exacerbation /Pneumonia -IV lasix as below -On 3-4 L oxygen - wean as tolerated -Speech therapy done - Regular diet with thin liquids with aspiration precautions recommended. CHF EXACERBATION, DIASTOLIC -On lasix 20 mg ---> Increased to 20 mg IV BID ON 09/23/16- Continue today -CXR - CHF -Monitor EPISTAXIS- Resolved Had just one mild episode on 09/23/16 -Resolved by itself -Aspirin was held. SEVERE SEPSIS - Resolved Unclear source. Likely : Pneumonia. Other possibilities considered: PICC line, but cultures - negative. 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 Was started on levofloxacin outpatient for possible pneumonia. 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 -Plan was for surgery for 3rd toe amputation as planned prior to admission on 09/22/16, but cancelled for now,. Will need to be rescheduled out patient after recovers from this hospitalization per discussion with Dr Jefferson DM-II -ISS, Accuchecks CKD III -At baseline HX OF CAD -Stable -Held Statin due to on daptomycin CHRONIC ANEMIA -Stable CHRONIC ATRIAL FIBRILLATION -Not on anticoagulation (discontinued previously due to epistaxis and unsteady gait) DVT Px: Heparin SQ Code Status: DNR/DNI DISPOSITION Medical mx in progress PT/OT ordered Will need rehab Vital Signs: Date Time Temp Pulse Resp B/P (MAP) Pulse Ox O2 Delivery O2 Flow Rate FiO2 09/24/16 08:00 Nasal Cannula 4.0 09/24/16 07:13 88 18 92 Nasal Cannula 4.0 09/24/16 07:01 36.6 60 16 128/70 (89) 94 Nasal Cannula 4.0 09/24/16 04:00 Nasal Cannula 4.0 09/24/16 03:54 36.6 98 20 122/63 (82) 99 Nasal Cannula 4.0 09/24/16 00:00 Nasal Cannula 4.0 09/23/16 22:54 36.6 93 20 145/75 (98) 100 Nasal Cannula 5.0 09/23/16 20:32 103 135/73 (93) 09/23/16 20:00 Nasal Cannula 4.0 09/23/16 19:59 88 18 93 Nasal Cannula 5.0 09/23/16 19:30 36.5 91 20 148/80 (102) 99 Nasal Cannula 5.0 Humidified Oxygen 09/23/16 16:00 Nasal Cannula 5.0 09/23/16 15:45 36.6 67 20 129/61 (83) 93 Nasal Cannula 5.0 09/23/16 14:14 69 18 91 Nasal Cannula 5.0 09/23/16 12:00 Nasal Cannula 5.0 09/23/16 11:51 36.6 99 20 131/78 (95) 97 5.0 Lab Results: Results Past 24 Hours Test 09/23/16 11:38 09/23/16 16:25 09/23/16 20:26 09/24/16 07:14 Range/Units Bedside Glucose 184 203 149 109 70-99 mg/dl Test 09/24/16 07:24 09/24/16 08:58 Range/Units Sodium Level 144 136-145 mmol/L Potassium Level 2.6 3.5-5.1 mmol/L Chloride Level 103 98-107 mmol/L Carbon Dioxide Level 35 21-32 mmol/L Anion Gap 6.0 3-11 mmol/L Blood Urea Nitrogen 45 7-18 mg/dl Creatinine 2.00 0.60-1.40 mg/dl Est Creatinine Clear Calc Drug Dose 26.4 ml/min Estimated GFR () 33.5 Estimated GFR (Non- 28.9 BUN/Creatinine Ratio 22.4 10-20 Random Glucose 93 70-99 mg/dl Calcium Level 9.1 8.5-10.1 mg/dl
[2016-09-24] MEDS: FUROSEMIDE INJ 40 MG in SYRINGE 0 ML IV SCH ×2 (11:21→22:04)
[2016-09-24] MEDS: POTASSIUM CHLORIDE 20 MEQ/15 ML UDC PO SCH ×2 (11:21→17:35)
--- NOTE | 2016-09-24 12:08 | Infectious Disease Progress Nt ---
Progress Note Date of Service Sep 24, 2016. Subjective Pt evaluation today including: conversation w/ patient, physical exam, chart review, lab review, review of studies, conversation w/ [employer] consultant, review of inpatient medication list Patient remains disoriented, but appears comfortable in offers no new specific complaints. Remains afebrile. Hemodynamically stable overnight. No increase in shortness of breath or chest pain. All Other Systems: Reviewed and Negative Medications Current Inpatient Medications Medications (Trade) Dose Ordered Sig/Rosemarie Route Start Time Stop Time Status Last Admin Dose Admin Heparin Sodium (Porcine) (Heparin Sq 5000 Unit/0.5ml) 5,000 unit Q8 SQ 09/19/16 22:00 10/19/16 18:14 Future Hold 09/21/16 14:34 5,000 UNIT Acetaminophen (Tylenol Tab) 650 mg Q4H PRN PO 09/19/16 18:15 10/19/16 18:14 Piperacillin Sod/ Tazobactam Sod (Consult) 1 ea UD PRN N/A 09/19/16 20:16 09/26/16 13:59 Glucose (Glucose 40% Gel) 15-30 GRAMS 15 GRAMS... UD PRN PO 09/19/16 19:15 10/19/16 19:14 Glucose (Glucose Chew Tab) 4-8 Tablets 4 Tabl... UD PRN PO 09/19/16 19:15 10/19/16 19:14 Dextrose (Dextrose 50% 50ML Syringe) 25-50ML OF 50% DW IV FOR... UD PRN IV 09/19/16 19:15 10/19/16 19:14 Glucagon (Glucagon Inj) 1 mg UD PRN SQ 09/19/16 19:15 10/19/16 19:14 Miscellaneous Information (Consult Glycemic Management Pharmacy) 1 ea UD PRN N/A 09/19/16 19:20 10/19/16 19:19 Aspirin (Ecotrin Tab) 81 mg QAM PO 09/20/16 09:00 10/20/16 08:59 09/24/16 08:19 81 MG Docusate Sodium (coLACE CAP) 100 mg BID PO 09/19/16 21:00 10/19/16 20:59 09/24/16 08:19 100 MG Folic Acid (Folvite Tab) 1 mg DAILY PO 09/20/16 09:00 10/20/16 08:59 09/24/16 08:21 1 MG Metoprolol Tartrate (Lopressor Tab) 25 mg BID PO 09/19/16 21:00 10/19/16 20:59 09/24/16 08:20 25 MG Senna/Docusate Sodium (Senokot S Tab) 1 tab Q24H PRN PO 09/19/16 19:15 10/19/16 19:14 Cholecalciferol (Vitamin D Tab) 2,000 inter.unit DAILY PO 09/20/16 09:00 10/20/16 08:59 09/24/16 08:20 2,000 INTER.UNIT Ferrous Sulfate (Feosol Tab) 325 mg BID PO 09/19/16 21:00 10/19/16 20:59 09/24/16 08:20 325 MG Polyethylene (Miralax Powder Packet) 17 gm DAILY PRN PO 09/19/16 19:15 10/19/16 19:14 09/23/16 13:21 17 GM Daptomycin (Consult) 1 ea UD PRN N/A 09/19/16 20:30 09/27/16 23:59 Albuterol/ Ipratropium (Duoneb) 3 ml Q6R INH 09/20/16 03:00 10/20/16 02:59 09/24/16 07:13 3 ML Ondansetron HCl (Zofran Inj) 4 mg Q6H PRN IV 09/20/16 05:45 10/20/16 05:44 Potassium Chloride (Klor-Con M10) 10 meq DAILY PO 09/20/16 10:37 10/20/16 10:36 09/24/16 08:21 10 MEQ Insulin Aspart (novoLOG ASPART) SLIDING SCALE If C... ACHS SC 09/20/16 11:45 10/20/16 11:44 09/23/16 20:31 1 UNITS Fluconazole (Diflucan Tab) 200 mg QAM PO 09/21/16 09:00 10/03/16 09:01 09/24/16 08:20 200 MG Daptomycin 500 mg/ Sodium Chloride 60 ml @ 120 mls/hr Q48H IV 09/24/16 06:00 09/27/16 23:59 09/24/16 06:02 120 MLS/HR Furosemide 40 mg/ Syringe 4 ml @ 4 mls/min BID IV 09/23/16 21:00 10/23/16 20:59 09/24/16 11:21 4 MLS/MIN Insulin Glargine (Lantus Solostar Pen) 12 units PM SC 09/23/16 21:00 10/23/16 20:59 09/23/16 20:30 12 UNITS Potassium Chloride (Ellie Ciel Elix) 40 meq Q3H PO 09/24/16 12:00 09/24/16 15:01 09/24/16 11:21 40 MEQ Piperacillin Sod/ Tazobactam Sod 3.375 gm/Dextrose 115 ml @ 28.75 mls/ hr Q8H IV 09/24/16 14:00 09/26/16 13:59 Objective Vital Signs Date Time Temp Pulse Resp B/P (MAP) Pulse Ox O2 Delivery O2 Flow Rate FiO2 09/24/16 11:34 36.3 76 18 109/53 (71) 94 4.0 09/24/16 08:00 Nasal Cannula 4.0 09/24/16 07:13 88 18 92 Nasal Cannula 4.0 09/24/16 07:01 36.6 60 16 128/70 (89) 94 Nasal Cannula 4.0 09/24/16 04:00 Nasal Cannula 4.0 09/24/16 03:54 36.6 98 20 122/63 (82) 99 Nasal Cannula 4.0 09/24/16 00:00 Nasal Cannula 4.0 09/23/16 22:54 36.6 93 20 145/75 (98) 100 Nasal Cannula 5.0 09/23/16 20:32 103 135/73 (93) 09/23/16 20:00 Nasal Cannula 4.0 09/23/16 19:59 88 18 93 Nasal Cannula 5.0 09/23/16 19:30 36.5 91 20 148/80 (102) 99 Nasal Cannula 5.0 Humidified Oxygen 09/23/16 16:00 Nasal Cannula 5.0 09/23/16 15:45 36.6 67 20 129/61 (83) 93 Nasal Cannula 5.0 09/23/16 14:14 69 18 91 Nasal Cannula 5.0 Physical Exam General Appearance: WD/WN, no apparent distress Eyes: normal inspection, sclerae normal ENT: normal ENT inspection, pharynx normal Neck: supple, no adenopathy, trachea midline Respiratory/Chest: chest non-tender, no respiratory distress, + rales, + rhonchi Cardiovascular: no gallop, no murmur, + irregularly irregular Abdomen: normal bowel sounds, non tender, soft, no organomegaly Extremities: non-tender, no calf tenderness Neurologic/Psychiatric: alert, + disoriented Skin: normal color, no rash, + pertinent finding (Gangrenous 3rd left toe) Lymphatic: no adenopathy Laboratory Results Last 24 Hours Test 09/23/16 16:25 09/23/16 20:26 09/24/16 07:14 09/24/16 07:24 Bedside Glucose 203 mg/dl 149 mg/dl 109 mg/dl Sodium Level 144 mmol/L Potassium Level mmol/L Chloride Level 103 mmol/L Carbon Dioxide Level 35 mmol/L Anion Gap 6.0 mmol/L Blood Urea Nitrogen 45 mg/dl Creatinine 2.00 mg/dl Est Creatinine Clear Calc Drug Dose 26.4 ml/min Estimated GFR () 33.5 Estimated GFR (Non- 28.9 BUN/Creatinine Ratio 22.4 Random Glucose 93 mg/dl Calcium Level 9.1 mg/dl Test 09/24/16 08:58 09/24/16 11:18 Potassium Level 2.6 mmol/L Bedside Glucose 147 mg/dl Assessment and Plan 86 yo male with diabetes with neuropathy, gangrenous left 3rd toe s/p revascularization, septic arthritis left knee with Micrococcus, now with pulmonary edema with superimposed pneumonia, possibly aspiration, with clinical response to current therapy. Will continue patient on present RX as will cover treatment of gangrenous toe. length of therapy will be determined by clinical response.
[2016-09-24] MEDS: PIPERACILL/TAZOBAC IV 3.375 GM in DEXTROSE 5% 100ML IV SCH ×2 (13:32→22:11)
[2016-09-24] MEDS ORDERED: POTASSIUM CHLORIDE 20 MEQ/15 ML UDC PO STA (17:53)
[2016-09-24] MEDS: INSULIN GLARGINE SOLOSTAR 100 UNITS/ML 3 ML PEN SC SCH (22:02)
[2016-09-25] VITALS (10 sets, daily range): BP systolic 111–132; BP diastolic 57–66; PULSE 73–98; TEMP 36.3–37; O2SAT 91–97
[2016-09-25] MEDS: ALBUT/IPRATROP 3MG/0.5MG NEB 3 ML VIAL INH SCH ×4 (01:59→19:31)
[2016-09-25 05:52] LABS: HEMATOCRIT 26.1 % (42-52); MEAN CELL VOLUME 90.6 fL (80-100); MEAN CORPUSCULAR HEMOGLOBIN 28.1 pg (25-34); MEAN PLATELET VOLUME 10.4 fL (7.4-10.4); PLATELET COUNT 192 K/uL (130-400); RED BLOOD COUNT 2.88 M/uL (4.7-6.1); WHITE BLOOD COUNT 8.51 K/uL (4.8-10.8)
[2016-09-25] MEDS: PIPERACILL/TAZOBAC IV 3.375 GM in DEXTROSE 5% 100ML IV SCH ×3 (06:02→21:43)
[2016-09-25 06:26] LABS: BUN/CREATININE RATIO 21.8 (10-20); CREATININE 2.1 mg/dl (0.60-1.40); MAGNESIUM 1.8 mg/dl (1.8-2.4)
[2016-09-25] MEDS: DOCUSATE SODIUM 100 MG CAP PO SCH ×2 (08:20→21:05)
[2016-09-25] MEDS: METOPROLOL TARTRATE 25 MG TAB PO SCH ×2 (08:20→21:05)
[2016-09-25] MEDS: FERROUS SULFATE 325 MG TAB PO SCH ×2 (08:20→21:05)
[2016-09-25] MEDS: FLUCONAZOLE 100 MG TAB PO SCH (08:21)
[2016-09-25] MEDS: CHOLECALCIFEROL 1000 INTER.UNIT TAB PO SCH (08:21)
[2016-09-25] MEDS: POTASSIUM CHLORIDE 10 MEQ TABCR PO SCH (08:22)
--- NOTE | 2016-09-25 10:06 | Progress Note ---
Internal Med Progress Note Date of Service: Sep 25, 2016. Provider Documentation: SUBJECTIVE : Patient is disoriented to person, place and time, but able to have conversations. Denies any complaints. Cough + No c/o SOB Off oxygen OBJECTIVE: Vital Signs-as noted below Exam: GEN: AAOX3, no acute distress CARDIO: S1, S2 normal, no murmurs LUNGS: AEBE decreased, few crackles- improved ABD: soft, non-tender, non-distended, BS present EXTREMITY: No edema ; LLE-toe gangrenous Lab data as noted below. ASSESSMENT & PLAN: 86 [facility] M presented from [facility] with shortness of breath and hypoxia and admitted to the ICU for severe sepsis of uncertain origin. ACUTE HYPOXIC RESPIRATORY FAILURE - Resolving Likely secondary to CHF exacerbation /Pneumonia -Received IV lasix as below. -On 3-4 L oxygen - weaned off ---> now 92% on RA -Speech therapy done - Regular diet with thin liquids with aspiration precautions recommended. CHF EXACERBATION, DIASTOLIC -On lasix 20 mg ---> Increased to 40 mg IV BID ON 09/23/16 --> Change to Lasix 20 mg daily as creatinine going up -CXR - CHF -Monitor EPISTAXIS- Resolved Had just one mild episode on 09/23/16 -Resolved by itself -Aspirin was held. Ok to restart it SEVERE SEPSIS - Resolved Unclear source. Likely : Pneumonia. Other possibilities considered: PICC line, but cultures - negative. 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 Was started on levofloxacin outpatient for possible pneumonia. -On IV Daptomycin, Zosyn (Day 7). Discontinue Zosyn as 7 days completed. -Work up - Catheter tip culture- negative, Blood culture x 2- negative, UA- > 100k Yeast not evon, CXR- Pulmonary edema with B/L parenchymal infiltrates -ID on board- will discuss about antibiotics GLEN ON CKD-III - Slightly worse today -Baseline : 1.8--> 2.10 -Likely secondary to lasix. 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 Discontinued zosyn as it was for pneumonia- completed 7 days. -ID on board. Will discuss with ID re : antibiotics and coverage -Plan was for surgery for 3rd toe amputation as planned prior to admission on 09/22/16, but cancelled for now,. Will need to be rescheduled out patient after recovers from this hospitalization per discussion with Dr Jefferson. DM-II -ISS, Accuchecks CKD III -At baseline HX OF CAD -Stable -Held Statin due to on daptomycin CHRONIC ANEMIA -Stable CHRONIC ATRIAL FIBRILLATION -Not on anticoagulation (discontinued previously due to epistaxis and unsteady gait) DVT Px: Heparin SQ Code Status: DNR/DNI DISPOSITION PT/OT on board Will need rehab - likely dc in 1-2 days Vital Signs: Date Time Temp Pulse Resp B/P (MAP) Pulse Ox O2 Delivery O2 Flow Rate FiO2 09/25/16 07:48 36.9 86 19 123/64 (83) 92 Room Air 09/25/16 07:07 93 20 92 Room Air 09/25/16 01:59 90 16 97 Nasal Cannula 2.0 09/25/16 00:00 Nasal Cannula 2.0 09/25/16 00:00 37.0 85 20 111/66 (81) 94 2.0 09/24/16 22:23 105 122/71 (88) 09/24/16 20:07 36.4 97 18 110/73 (85) 100 Nasal Cannula 2.0 09/24/16 19:30 Nasal Cannula 2.0 09/24/16 19:00 98 16 94 Nasal Cannula 2.0 09/24/16 16:00 Nasal Cannula 2.0 09/24/16 14:28 96 18 97 Nasal Cannula 4.0 09/24/16 12:00 Nasal Cannula 2.0 09/24/16 11:34 36.3 76 18 109/53 (71) 94 4.0 Lab Results: Results Past 24 Hours Test 09/24/16 11:18 09/24/16 16:20 09/24/16 19:23 09/25/16 05:10 Range/Units Bedside Glucose 147 180 134 70-99 mg/dl White Blood Count 8.51 4.8-10.8 K/uL Red Blood Count 2.88 4.7-6.1 M/uL Hemoglobin 8.1 14.0-18.0 g/dL Hematocrit 26.1 42-52 % Mean Corpuscular Volume 90.6 80-100 fL Mean Corpuscular Hemoglobin 28.1 25-34 pg Mean Corpuscular Hemoglobin Concent 31.0 32-36 g/dl RDW Standard Deviation 60.6 36.4-46.3 fL RDW Coefficient of Variation 18.4 11.5-14.5 % Platelet Count 192 130-400 K/uL Mean Platelet Volume 10.4 7.4-10.4 fL Sodium Level 146 136-145 mmol/L Potassium Level 3.0 3.5-5.1 mmol/L Chloride Level 103 98-107 mmol/L Carbon Dioxide Level 36 21-32 mmol/L Anion Gap 7.0 3-11 mmol/L Blood Urea Nitrogen 46 7-18 mg/dl Creatinine 2.10 0.60-1.40 mg/dl Est Creatinine Clear Calc Drug Dose 25.1 ml/min Estimated GFR () 31.6 Estimated GFR (Non- 27.3 BUN/Creatinine Ratio 21.8 10-20 Random Glucose 112 70-99 mg/dl Calcium Level 9.0 8.5-10.1 mg/dl Magnesium Level 1.8 1.8-2.4 mg/dl Test 09/25/16 07:53 Range/Units Bedside Glucose 134 70-99 mg/dl
[2016-09-25] MEDS: ASPIRIN 81 MG ECTAB PO SCH (10:16)
[2016-09-25] MEDS: POTASSIUM CHLORIDE 20 MEQ/15 ML UDC PO SCH ×2 (10:17→11:15)
[2016-09-25] MEDS: INSULIN ASPART 100 UNITS/ML 3 ML PEN SC SCH ×4 (10:17→21:00)
[2016-09-25] MEDS: FUROSEMIDE 20 MG TAB PO SCH (10:17)
[2016-09-25] MEDS: INSULIN GLARGINE SOLOSTAR 100 UNITS/ML 3 ML PEN SC SCH (21:09)
[2016-09-26] VITALS (11 sets, daily range): BP systolic 95–135; BP diastolic 54–68; PULSE 73–99; TEMP 36.4–36.7; O2SAT 90–98
[2016-09-26] MEDS: ALBUT/IPRATROP 3MG/0.5MG NEB 3 ML VIAL INH SCH ×4 (01:39→19:15)
[2016-09-26] MEDS: DAPTOMYCIN IV 500 MG in NSS 50ML IV SCH (05:33)
[2016-09-26] MEDS: PIPERACILL/TAZOBAC IV 3.375 GM in DEXTROSE 5% 100ML IV SCH (06:40)
[2016-09-26 07:27] LABS: BUN/CREATININE RATIO 20.7 (10-20); CREATININE 1.9 mg/dl (0.60-1.40); POTASSIUM 3.1 mmol/L (3.5-5.1)
[2016-09-26] MEDS: ASPIRIN 81 MG ECTAB PO SCH (08:07)
[2016-09-26] MEDS: FLUCONAZOLE 100 MG TAB PO SCH (08:08)
[2016-09-26] MEDS: FERROUS SULFATE 325 MG TAB PO SCH ×2 (08:08→20:36)
[2016-09-26] MEDS: POTASSIUM CHLORIDE 10 MEQ TABCR PO SCH (08:08)
[2016-09-26] MEDS: FUROSEMIDE 20 MG TAB PO SCH (08:08)
[2016-09-26] MEDS: DOCUSATE SODIUM 100 MG CAP PO SCH ×2 (08:08→20:35)
[2016-09-26] MEDS: METOPROLOL TARTRATE 25 MG TAB PO SCH ×2 (08:09→20:40)
[2016-09-26] MEDS: CHOLECALCIFEROL 1000 INTER.UNIT TAB PO SCH (08:10)
[2016-09-26] MEDS: INSULIN ASPART 100 UNITS/ML 3 ML PEN SC SCH ×4 (08:35→20:42)
--- NOTE | 2016-09-26 09:41 | Progress Note ---
Internal Med Progress Note Date of Service: Sep 26, 2016. Provider Documentation: SUBJECTIVE : Patient is doing much better today Mental status- Awake, oriented to place, person. Denies any complaints. Cough + No c/o SOB Off oxygen OBJECTIVE: Vital Signs-as noted below Exam: GEN: AAOX3, no acute distress CARDIO: S1, S2 normal, no murmurs LUNGS: AEBE decreased, few crackles- improved ABD: soft, non-tender, non-distended, BS present EXTREMITY: No edema ; LLE-toe gangrenous Lab data as noted below. ASSESSMENT & PLAN: 86 yo M presented from [facility] with shortness of breath and hypoxia and admitted to the ICU for severe sepsis of uncertain origin. ACUTE HYPOXIC RESPIRATORY FAILURE - Resolved Likely secondary to CHF exacerbation /Pneumonia -Received IV lasix as below. -S/P 3-4 L oxygen - weaned off ---> now 97% on RA -Speech therapy done - Regular diet with thin liquids with aspiration precautions recommended. CHF EXACERBATION, DIASTOLIC -On lasix 20 mg ---> Increased to 40 mg IV BID ON 09/23/16 --> Changed to Lasix 20 mg daily as creatinine going up- on 09/25/16 -CXR - CHF -Monitor EPISTAXIS- Resolved Had just one mild episode on 09/23/16 -Resolved by itself -Aspirin was held. Ok to restart it SEVERE SEPSIS - Resolved Unclear source. Likely : Pneumonia. Other possibilities considered: PICC line, but cultures - negative. 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 Was started on levofloxacin outpatient for possible pneumonia. -On IV Daptomycin, Zosyn (Day 7). Discontinue Zosyn as 7 days completed. -Work up - Catheter tip culture- negative, Blood culture x 2- negative, UA- > 100k Yeast not evon, CXR- Pulmonary edema with B/L parenchymal infiltrates -ID on board- will discuss about antibiotics GLEN ON CKD-III - Improved -Baseline : 1.8--> 2.10-->1.90 (near his baseline) -Likely secondary to being on lasix. 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 S/P IV Zosyn x 7 days for probable pneumonia (Discontinued on 09/25/16). -ID on board. Discussed : Recommends Daptomycin for 4 weeks. (till 10/24/16) -Plan was for surgery for 3rd toe amputation as planned prior to admission on 09/22/16, but cancelled for now,. Will need to be rescheduled out patient after recovers from this hospitalization per discussion with Dr Jefferson. DM-II -ISS, Accuchecks CKD III -At baseline HX OF CAD -Stable -Held Statin due to on daptomycin CHRONIC ANEMIA -Stable CHRONIC ATRIAL FIBRILLATION -Not on anticoagulation (discontinued previously due to epistaxis and unsteady gait) DVT Px: Heparin SQ Code Status: DNR/DNI DISPOSITION PT/OT on board Discharge to rehab, [facility] tomorrow. Updated daughter, son by bedside on 09/25/16. Vital Signs: Date Time Temp Pulse Resp B/P (MAP) Pulse Ox O2 Delivery O2 Flow Rate FiO2 09/26/16 08:00 97 Room Air 40 09/26/16 07:09 73 16 97 Room Air 09/26/16 06:59 36.7 85 20 122/54 (76) 90 Room Air 09/26/16 01:39 75 16 93 Room Air 09/26/16 00:00 Room Air 09/25/16 23:19 36.9 86 20 132/59 (83) 91 Room Air 09/25/16 21:03 92 128/57 (80) 09/25/16 19:31 98 18 95 Room Air 09/25/16 16:00 Room Air 09/25/16 15:26 36.3 89 19 129/63 (85) 92 Room Air 09/25/16 14:18 73 20 93 Room Air Lab Results: Results Past 24 Hours Test 09/25/16 11:25 09/25/16 16:37 09/25/16 20:26 09/26/16 06:11 Range/Units Bedside Glucose 209 76 135 70-99 mg/dl Sodium Level 146 136-145 mmol/L Potassium Level 3.1 3.5-5.1 mmol/L Chloride Level 104 98-107 mmol/L Carbon Dioxide Level 37 21-32 mmol/L Anion Gap 5.0 3-11 mmol/L Blood Urea Nitrogen 39 7-18 mg/dl Creatinine 1.90 0.60-1.40 mg/dl Est Creatinine Clear Calc Drug Dose 27.7 ml/min Estimated GFR () 35.7 Estimated GFR (Non- 30.8 BUN/Creatinine Ratio 20.7 10-20 Random Glucose 104 70-99 mg/dl Calcium Level 9.0 8.5-10.1 mg/dl Test 09/26/16 07:27 Range/Units Bedside Glucose 128 70-99 mg/dl
[2016-09-26] MEDS: POTASSIUM CHLORIDE 20 MEQ/15 ML UDC PO SCH ×2 (12:31→13:41)
--- NOTE | 2016-09-26 15:03 | Pharmacy Progress Note ---
Glycemic Control Progress Note Date of Service Sep 26, 2016. Scope Glycemic Pharmacist consulted for glycemic control to write orders per [facility] inpatient glycemic control protocol. Objective Accuchecks BSG (last 24hrs): Test 09/25/16 16:37 09/25/16 20:26 09/26/16 06:11 09/26/16 07:27 Bedside Glucose 76 mg/dl (70-99) 135 mg/dl (70-99) 128 mg/dl (70-99) Random Glucose 104 mg/dl (70-99) Test 09/26/16 11:48 Bedside Glucose 228 mg/dl (70-99) HbA1c: Test 09/20/16 06:20 Hemoglobin A1c 6.5 % (4.5-5.6) H Recent Pertinent Medications The patient is currently receiving: * Basal insulin: Lantus 14 units every 24 hours - dosed at bedtime * Correctional Insulin: Novolog Correction per scale ACHS Goal Range: Low 110 mg/dL - High 140 mg/dL Correction Factor: 18 mg/dL/unit * Prandial insulin: Per carb ratio of 1 unit per 6 grams CHO consumed Outpatient Anti-Diabetic Meds Lantus 12 units Q PM Novolog 5 units w/ lunch and 10 units w/ supper as well as per sliding scale Assessment & Plan ASSESSMENT: * Pt receiving SQ basal bolus insulin regimen for hyperglycemia secondary to baseline DM, stress/infection * Patient is currently receiving an average of 35 units of insulin per day * 14 units of basal insulin * 21 units of prandial/correctional insulin * BSGs ranging 76 - 228 mg/dl over the past 24hrs * Changes needed to insulin regimen: * AM Fasting BSG = 104-128 mg/dl. This is in goal range for patient based on inpatient targets and co-morbidities. Therefore Basal insulin needs no adjustment. * Post-prandial BSGs are in range on 2 of 3 checks yesterday. Prelunch hyperglycemia yesterday likely due to no carb coverage given with breakfast. Today prelunch hyperglycemia again seen, but pt did get carb coverage. Post- prandial BSGs controlled fairly well with occasional high value. One post- prandial BSG did drop into the 70's yesterday, so I do feel there is some insulin stacking at times. Would not react to occasional post-prandial hyperglycemia. Continue current CF and CR. PLAN FOR INPATIENT GLYCEMIC CONTROL: * Continuing Lantus 14 units SQ Q HS * Continuing correction factor of 18 mg/dl/unit * Continuing carb ratio of 1 unit per 6 grams CHO consumed * Continuing goal range of Low 110 mg/dL - High 140 mg/dL * Please note that the plan above was derived based on current level of insulin resistance and hospital stress. These recommendations are appropriate for inpatient admission only. Plan of care upon discharge will need to be reassessed to avoid potential outpatient hypo/hyperglycemia. Thank you.
[2016-09-26] MEDS: INSULIN GLARGINE SOLOSTAR 100 UNITS/ML 3 ML PEN SC SCH (20:42)
[2016-09-27 02:06] VITALS: PULSE 103; O2SAT 95
[2016-09-27] MEDS: ALBUT/IPRATROP 3MG/0.5MG NEB 3 ML VIAL INH SCH ×3 (02:06→14:15)
[2016-09-27 07:21] VITALS: PULSE 93; O2SAT 90
[2016-09-27 07:24] VITALS: BP 124/67; PULSE 94; TEMP 36.5; O2SAT 90
[2016-09-27 07:30] LABS: BUN/CREATININE RATIO 18.2 (10-20); CALCIUM 8.9 mg/dl (8.5-10.1); CREATININE 1.9 mg/dl (0.60-1.40); POTASSIUM 3.9 mmol/L (3.5-5.1)
[2016-09-27] MEDS: INSULIN ASPART 100 UNITS/ML 3 ML PEN SC SCH ×2 (07:58→12:38)
[2016-09-27] MEDS: ASPIRIN 81 MG ECTAB PO SCH (07:59)
[2016-09-27 08:00] VITALS: O2SAT 93
[2016-09-27] MEDS: METOPROLOL TARTRATE 25 MG TAB PO SCH (08:00)
[2016-09-27] MEDS: FLUCONAZOLE 100 MG TAB PO SCH (08:00)
[2016-09-27] MEDS: FUROSEMIDE 20 MG TAB PO SCH (08:00)
[2016-09-27] MEDS: CHOLECALCIFEROL 1000 INTER.UNIT TAB PO SCH (08:00)
[2016-09-27] MEDS: DOCUSATE SODIUM 100 MG CAP PO SCH (08:00)
[2016-09-27] MEDS: FERROUS SULFATE 325 MG TAB PO SCH (08:00)
[2016-09-27] MEDS ORDERED: POTASSIUM CHLORIDE PWD 20 MEQ PACK PO SCH (09:00)
--- NOTE | 2016-09-27 09:17 | Progress Note ---
Internal Med Progress Note Date of Service: Sep 27, 2016. Provider Documentation: SUBJECTIVE : Patient is doing much better. Mental status- Awake, oriented to place, person. OOB to chair. Denies any complaints. Cough + No c/o SOB, chest pain, fever, chills Off oxygen, on RA OBJECTIVE: Vital Signs-as noted below Exam: GEN: AAOX3, no acute distress CARDIO: S1, S2 normal, no murmurs LUNGS: AEBE decreased, few crackles- improved ABD: soft, non-tender, non-distended, BS present EXTREMITY: No edema ; LLE-toe gangrenous Lab data as noted below. ASSESSMENT & PLAN: 86 yo M presented from [facility] with shortness of breath and hypoxia and admitted to the ICU for severe sepsis of uncertain origin. ACUTE HYPOXIC RESPIRATORY FAILURE - Resolved Likely secondary to CHF exacerbation / Pneumonia. -Received IV lasix as below. -S/P 3 -4 L oxygen - weaned off ---> now saturating well on RA -Speech therapy done - Regular diet with thin liquids with aspiration precautions recommended. CHF EXACERBATION, DIASTOLIC -Was on lasix 20 mg ---> Increased to 40 mg IV BID ON 09/23/16 --> Changed to Lasix 20 mg daily on 09/25/16. Continue with lasix 20 mg daily -CXR - CHF -Monitor volume status EPISTAXIS- Resolved Had just one mild episode on 09/23/16 -Resolved by itself -Aspirin was held. Restarted it SEVERE SEPSIS - Resolved Unclear source. Likely : Pneumonia. Other possibilities considered: PICC line, but cultures - negative. 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 Was started on levofloxacin outpatient for possible pneumonia. -On IV Daptomycin, S/P Zosyn (Days x 7). Discontinued Zosyn as 7 days completed. -Work up - Catheter tip culture - negative, Blood culture x 2 - negative, UA - > 100k Yeast not evon, CXR- Pulmonary edema with B/L parenchymal infiltrates -ID on board GLEN ON CKD-III - Improved -Baseline : 1.8--> 2.10-->1.90 (near his baseline) -Likely secondary to being on lasix. Lasix changed to PO and tolerating this dose -Monitor outpatient SEVERE HYPOKALEMIA -Resolved -Monitor ABNORMAL UA -As came with severe sepsis with unclear source of infection, UA - >[id number] Yeast , started on diflucan on 09/20/16 . Okay to discontinue on 09/27/16 as finished course for 7 days. 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 S/P IV Zosyn x 7 days for probable pneumonia (Discontinued on 09/25/16). -ID on board. Discussed : Recommends IV Daptomycin for total of 4 weeks. (till - Start date was 09/05/16). PICC line ordered today -Plan was for surgery for 3rd toe amputation as planned prior to admission on 09/22/16, but cancelled for now,. Will need to be rescheduled out patient after recovers from this hospitalization per discussion with Dr Jefferson. DM-II -ISS, Accuchecks HX OF CAD -Stable -Held Statin due to on daptomycin. Continue with ASA CHRONIC ANEMIA -Stable CHRONIC ATRIAL FIBRILLATION -Not on anticoagulation (discontinued previously due to epistaxis and unsteady gait) DVT Px: Heparin SQ Code Status: DNR/DNI DISPOSITION PT/OT on board Unable to go to [facility] as on Daptomycin. Referral made to [facility]. Okay to discharge once PICC line placed, bed available Updated daughter over phone today Agreeable with discharge plan Vital Signs: Date Time Temp Pulse Resp B/P (MAP) Pulse Ox O2 Delivery O2 Flow Rate FiO2 09/27/16 08:00 93 Room Air 09/27/16 07:24 36.5 94 18 124/67 (86) 90 Room Air 09/27/16 07:21 93 16 90 Room Air 09/27/16 02:06 103 16 95 Room Air 09/27/16 00:01 Room Air 09/26/16 23:13 36.7 99 20 113/66 (82) 96 Room Air 09/26/16 20:46 98 135/68 (90) 97 Room Air 09/26/16 20:00 Room Air 09/26/16 19:15 98 16 95 Room Air 09/26/16 16:00 95 Room Air 40 09/26/16 15:40 36.5 85 20 109/66 (80) 98 Room Air 09/26/16 14:15 73 16 98 Room Air Lab Results: Results Past 24 Hours Test 09/26/16 16:31 09/26/16 20:02 09/27/16 06:35 09/27/16 07:43 Range/Units Bedside Glucose 260 150 121 70-99 mg/dl Sodium Level 143 136-145 mmol/L Potassium Level 3.9 3.5-5.1 mmol/L Chloride Level 103 98-107 mmol/L Carbon Dioxide Level 35 21-32 mmol/L Anion Gap 5.0 3-11 mmol/L Blood Urea Nitrogen 35 7-18 mg/dl Creatinine 1.90 0.60-1.40 mg/dl Est Creatinine Clear Calc Drug Dose 27.7 ml/min Estimated GFR () 35.7 Estimated GFR (Non- 30.8 BUN/Creatinine Ratio 18.2 10-20 Random Glucose 107 70-99 mg/dl Calcium Level 8.9 8.5-10.1 mg/dl Test 09/27/16 11:25 Range/Units Bedside Glucose 165 70-99 mg/dl
--- NOTE | 2016-09-27 09:41 | Infectious Disease Progress Nt ---
Progress Note Date of Service Sep 27, 2016. Subjective Pt evaluation today including: conversation w/ patient, physical exam, chart review, lab review, review of studies, conversation w/ financial planning consultant, review of inpatient medication list No new complaints. Denies SOB, CP. No fever. Tolerating daptomycin. All Other Systems: Reviewed and Negative Medications Current Inpatient Medications Medications (Trade) Dose Ordered Sig/Rosemarie Route Start Time Stop Time Status Last Admin Dose Admin Heparin Sodium (Porcine) (Heparin Sq 5000 Unit/0.5ml) 5,000 unit Q8 SQ 09/19/16 22:00 10/19/16 18:14 Future Hold 09/21/16 14:34 5,000 UNIT Acetaminophen (Tylenol Tab) 650 mg Q4H PRN PO 09/19/16 18:15 10/19/16 18:14 Glucose (Glucose 40% Gel) 15-30 GRAMS 15 GRAMS... UD PRN PO 09/19/16 19:15 10/19/16 19:14 Glucose (Glucose Chew Tab) 4-8 Tablets 4 Tabl... UD PRN PO 09/19/16 19:15 10/19/16 19:14 Dextrose (Dextrose 50% 50ML Syringe) 25-50ML OF 50% DW IV FOR... UD PRN IV 09/19/16 19:15 10/19/16 19:14 Glucagon (Glucagon Inj) 1 mg UD PRN SQ 09/19/16 19:15 10/19/16 19:14 Miscellaneous Information (Consult Glycemic Management Pharmacy) 1 ea UD PRN N/A 09/19/16 19:20 10/19/16 19:19 Aspirin (Ecotrin Tab) 81 mg QAM PO 09/20/16 09:00 10/20/16 08:59 09/27/16 07:59 81 MG Docusate Sodium (coLACE CAP) 100 mg BID PO 09/19/16 21:00 10/19/16 20:59 09/27/16 08:00 100 MG Folic Acid (Folvite Tab) 1 mg DAILY PO 09/20/16 09:00 10/20/16 08:59 09/27/16 07:59 1 MG Metoprolol Tartrate (Lopressor Tab) 25 mg BID PO 09/19/16 21:00 10/19/16 20:59 09/27/16 08:00 25 MG Senna/Docusate Sodium (Senokot S Tab) 1 tab Q24H PRN PO 09/19/16 19:15 10/19/16 19:14 Cholecalciferol (Vitamin D Tab) 2,000 inter.unit DAILY PO 09/20/16 09:00 10/20/16 08:59 09/27/16 08:00 2,000 INTER.UNIT Ferrous Sulfate (Feosol Tab) 325 mg BID PO 09/19/16 21:00 10/19/16 20:59 09/27/16 08:00 325 MG Polyethylene (Miralax Powder Packet) 17 gm DAILY PRN PO 09/19/16 19:15 10/19/16 19:14 09/23/16 13:21 17 GM Daptomycin (Consult) 1 ea UD PRN N/A 09/19/16 20:30 09/27/16 23:59 Albuterol/ Ipratropium (Duoneb) 3 ml Q6R INH 09/20/16 03:00 10/20/16 02:59 09/27/16 07:21 3 ML Ondansetron HCl (Zofran Inj) 4 mg Q6H PRN IV 09/20/16 05:45 10/20/16 05:44 Insulin Aspart (novoLOG ASPART) SLIDING SCALE If C... ACHS SC 09/20/16 11:45 10/20/16 11:44 09/27/16 07:58 6 UNITS Daptomycin 500 mg/ Sodium Chloride 60 ml @ 120 mls/hr Q48H IV 09/24/16 06:00 09/27/16 23:59 09/26/16 05:33 120 MLS/HR Furosemide (Lasix Tab) 20 mg DAILY PO 09/25/16 09:00 10/25/16 08:59 09/27/16 08:00 20 MG Insulin Glargine (Lantus Solostar Pen) 14 units PM SC 09/25/16 21:00 10/25/16 20:59 09/26/16 20:42 14 UNITS Potassium Chloride (Klor-Con Pwd) 20 meq QAM PO 09/27/16 09:00 10/27/16 08:59 09/27/16 08:01 20 MEQ Objective Vital Signs Date Time Temp Pulse Resp B/P (MAP) Pulse Ox O2 Delivery O2 Flow Rate FiO2 09/27/16 07:24 36.5 94 18 124/67 (86) 90 Room Air 09/27/16 07:21 93 16 90 Room Air 09/27/16 02:06 103 16 95 Room Air 09/27/16 00:01 Room Air 09/26/16 23:13 36.7 99 20 113/66 (82) 96 Room Air 09/26/16 20:46 98 135/68 (90) 97 Room Air 09/26/16 20:00 Room Air 09/26/16 19:15 98 16 95 Room Air 09/26/16 16:00 95 Room Air 40 09/26/16 15:40 36.5 85 20 109/66 (80) 98 Room Air 09/26/16 14:15 73 16 98 Room Air 09/26/16 11:32 36.4 85 18 95/54 (68) 96 Room Air Physical Exam General Appearance: WD/WN, no apparent distress Eyes: normal inspection, EOMI, sclerae normal ENT: normal ENT inspection, pharynx normal Neck: supple, no adenopathy, trachea midline Respiratory/Chest: lungs clear, normal breath sounds, no respiratory distress Cardiovascular: no gallop, no murmur, + irregularly irregular Abdomen: normal bowel sounds, non tender, soft, no organomegaly Extremities: non-tender, no calf tenderness Neurologic/Psychiatric: alert, oriented x 3 Skin: normal color, no rash, + pertinent finding (gangrenous left 3rd toe) Lymphatic: no adenopathy Laboratory Results Last 24 Hours Test 09/26/16 11:48 09/26/16 16:31 09/26/16 20:02 09/27/16 06:35 Bedside Glucose 228 mg/dl 260 mg/dl 150 mg/dl Sodium Level 143 mmol/L Potassium Level 3.9 mmol/L Chloride Level 103 mmol/L Carbon Dioxide Level 35 mmol/L Anion Gap 5.0 mmol/L Blood Urea Nitrogen 35 mg/dl Creatinine 1.90 mg/dl Est Creatinine Clear Calc Drug Dose 27.7 ml/min Estimated GFR () 35.7 Estimated GFR (Non- 30.8 BUN/Creatinine Ratio 18.2 Random Glucose 107 mg/dl Calcium Level 8.9 mg/dl Test 09/27/16 07:43 Bedside Glucose 121 mg/dl Assessment and Plan 86 yo male with diabetes with neuropathy, gangrenous left 3rd toe s/p revascularization, septic arthritis left knee with Micrococcus, now with pulmonary edema with superimposed pneumonia, possibly aspiration, with clinical response to Abx. Patient will be continued on daptomycin to complete 4 weeks Rx for septic arthritis.
--- NOTE | 2016-09-27 15:01 | DIAGNOSTIC IMAGING REPORT ---
CHEST ONE VIEW PORTABLE CLINICAL HISTORY: Left PICC placement. COMPARISON STUDY: Chest radiograph September 22, 2016. FINDINGS: The left PICC tip is partially obscured but likely projects over the right atrium. There is no pneumothorax. Interstitial thickening persists. Nodular right upper lobe airspace opacity is present. Bilateral airspace opacities have significantly improved since exam of September 22, 2016. IMPRESSION: 1. Tip of left PICC partially obscured but likely projects over the right atrium. The catheter could be withdrawn 3 cm. 2. Significant interval improvement of bilateral airspace opacities since exam of September 22, 2016. Electronically signed by: Jm Cornejo M.D. 09/27/2016 3:00 PM Dictated Date/Time: 09/27/2016 2:56 PM
[2016-09-27] MEDS ORDERED: IPRASOL4 INH (15:22)
--- NOTE | 2016-09-27 15:25 | Discharge Instructions ---
Discharge Instructions Date of Service Sep 27, 2016. Admission Reason for Admission: SOB Discharge Discharge Diagnosis / Problem: 1. Pneumonia 2. Acute CHF exacerbation 3. Acute hypoxic resp failure Discharge Goals Goal(s): Decrease discomfort, Improve function Activity Recommendations Activity Limitations: per Instructions/Follow-up section (As tolerated with assistance. PT/OT recommended) . Instructions / Follow-Up Instructions / Follow-Up MEDICATION CHANGES: 1. Daptomycin IV to be continued as per instructions till 10/03/16 (Begin date ) for Left toe gangrene. MONITOR CPK and BMP to be done weekly while on Daptomycin Okay to restart statin after completing daptomycin course FOLLOW UP `1. Follow up with PCP in 1 week 2. Follow up with vascular surgery re: rescheduling his appt for Left toe gangrene amputation which was post poned due to current hospitalization Call your Primary Care doctor if any of the following symptoms or problems start or get worse: * Shortness of breath or difficulty breathing * Wake up at night short of breath * Chest pain * Cough * Swelling of your hands, feet, or legs * More fatigued or tired with your normal activity * Palpitations - sudden fast heart beats WEIGHT * Weigh yourself every morning after using the bathroom. * Use the same scale. * Wear the same amount of clothing. * Write your weight down on a chart. * Call your Primary Care doctor if you gain more than 2-3 pounds in 1-2 days. MEDICATIONS * Use this discharge instruction sheet for medication instructions. * Take your medications at the time your doctor ordered. * Do not skip a dose of your medicines. * If you miss a dose of medicine, take it as soon as possible, but DO NOT DOUBLE A DOSE. * Read your medicine information when you get home. * Know all of the side effects of your medicine. If in doubt, ask your pharmacist * Call your Primary Care doctor's office if you have any side effects. * Be sure all of your doctors know what medicine and herbs you take (including cold, flu, and herbal medicine). Take the following with you to your follow-up doctor appointments: * Weight Chart * Medication List * List of questions Do not drink excessive alcohol, beer or wine. Current Hospital Diet Patient's current hospital diet: Diabetes Type 2 Diet Discharge Diet Recommended Diet: AHA Diet (Heart Healthy) (with thin liquids and aspiration precautions per speech therapist), Low Sodium Diet (2gm Na), Diabetes Type 2 Diet Pending Studies Studies pending at discharge: no Laboratory Results Hemoglobin A1c Test 09/20/16 06:20 Range/Units Estimated Average Glucose 140 mg/dl Hemoglobin A1c 6.5 H 4.5-5.6 % Medical Emergencies . Who to Call and When: Call 911 or go to the Emergency Room if: * If at any time you feel your situation is an emergency * You have tightness or pain in your chest that does not go away with rest or Nitroglycerin * You are very short of breath even with rest . Non-Emergent Contact Non-Emergency issues call your: Primary Care Provider . . "Provider Documentation" section prepared by Karine Young. . VTE Core Measure Inpt VTE Proph given/why not?: Unfractionated heparin SQ
[2016-09-27 15:31] VITALS: BP 121/63; PULSE 91; TEMP 36.7; O2SAT 96
--- NOTE | 2016-09-27 15:31 | Discharge Summary ---
Discharge Summary Date of Service Sep 27, 2016. Discharge Summary Admission Date: Sep 19, 2016 at 19:05 Discharge Date: Sep 27, 2016 Discharge Disposition: Rehab ([facility]) Principal Diagnosis: 1. Sepsis secondary to Pneumonia, HCAP 2. CHF exacerbation, diastolic 3. Acute hypoxic respiratory failure secondary to above 4. GLEN on CKD III 5. Hypokalemia 6. Physical deconditioning 7. Metabolic encephalopathy/Intermittent confusion secondary to above Secondary Diagnoses/Problems: 1. Hx of septic arthritis sec to micrococcus 2. Third toe gangrene 3. HTN 4. DM-II 5. Hx of CAD 6. Physical deconditioning Procedures: ICU monitoring Tele monitoring PICC line placed on 09/27/16 IV antibiotics Serial CXR CT head Consultations: ID Vascular Surgery Pending Studies/Follow-Up: Instructions / Follow-Up Instructions / Follow-Up MEDICATION CHANGES: 1. Daptomycin IV to be continued as per instructions till 10/03/16 (Begin date ) for Left toe gangrene. MONITOR CPK, BMP q weekly while on daptomycin Restart statin after daptomycin discontinued FOLLOW UP `1. Follow up with PCP in 1 week 2. Follow up with vascular surgery re: rescheduling his appt for Left toe gangrene amputation which was post poned due to current hospitalization Medication Reconciliation Changed Medications: Ipratropium-Albuterol (Duoneb) 3 Ml Nebu 1 TREATMENT INH TID PRN for SOB/WHEEZING, #30 INHA (Medication details modified) Continued Medications: Acetaminophen (Tylenol) 500 Mg Tab 500 MG PO Q4 PRN for Mild Pain MAX 3 GM COMBINED TOTAL ACETAMINOPHEN / 24 HOURS. USE PRN MILD PAIN 1-3 OR FEVER > 101 F Aspirin Enteric Coated (Ecotrin Or Generic) 81 Mg Tab 81 MG PO QAM, TAB Cholecalciferol (Vitamin D3) 2,000 Unit Tab 2000 UNITS PO DAILY for 90 Days, TAB 3 Refills Daptomycin (Daptomycin) 500 Mg Inj 500 MG IV Q2D for 28 Days, #14 DOSE Begin 09/05 at 0800 Docusate Sodium (Colace) 100 Mg Cap 1 CAP PO BID Ferrous Sulfate (Kp Ferrous Sulfate) 325 Mg Tab 1 TAB PO BID Folic Acid (Folvite) 1 Mg Tab 1 MG PO DAILY Furosemide (Lasix) 20 Mg Tab 20 MG PO QAM Insulin Aspart (Novolog) 100 Units/Ml Inj 1 DOSE SC ACHS DOSE BASED ON SLIDING SCALE: 70-130 = 0 UNITS 131-180 = 2 UNITS 181-240 = 4 UNITS 241-300 = 6 UNITS 301-350 = 8 UNITS 351-400 = 10 UNITS > 400 = 12 UNITS AND CALL MD. Insulin Aspart (Novolog) 100 Units/Ml Inj 5 UNITS SC DAILY AT LUNCH Insulin Aspart (Novolog) 100 Units/Ml Inj 10 UNITS SC QPM AT SUPPER TIME Insulin Glargine (Lantus) 100 Unit/Ml Inj 12 UNITS SC DAILY Metoprolol Tartrate (Lopressor) (Lopressor) 25 Mg Tab 25 MG PO BID, TAB Multivitamins/Minerals (Mvi With Minerals) Tab 1 TAB PO DAILY, TAB Polyethylene Glycol 3350 (Miralax) 1 Pow Pow 17 GM PO DAILY PRN for Constipation Potassium Chloride (Micro-K Ext Rel) 10 Meq Capcr 10 MEQ PO DAILY, CAP Sennosides-Docusate Sodium (Senna-S) 1 Tab Tab 1 TAB PO Q24H PRN for Constipation Discontinued Medications: Ertapenem Sodium (Invanz) 1 Gm Inj 1 GM IV DAILY for 28 Days, #28 DOSE Begin 09/03 Fluconazole (Fluconazole) 100 Mg Tab 100 MG PO DAILY Levofloxacin (Levaquin) 250 Mg Tab 250 MG PO DAILY X 8 DAYS Admission Information HPI (per Admitting provider): Patient is an 86 yr male with PMH of CAD, chronic AF, bioprosthetic AVR, DM II , CKD III, RA, DHF, PAD and other problems who was recently discharged to [facility] after being treated for Left foot gangrene and septic arthritis presents from [facility] with history of worsening SOB, cough. Patient is a poor historian and family could not provide much history as well. According to the family, patient was thought to develop cough, SOB, wheezing since last and has progressively worsened since then. Patient was started on PO Levaquin in addition to the antibiotics he was discharged on (Dapto and Invanz) for septic arthritis for possible pneumonia per family. Today he was noted to be very "shaky" and was found to have fever and so was brought to ED for further evaluation. Family believes that he had an episode of vomiting earlier this week. Patient currently denies any chest pain, palpitations, dizziness, abd pain. Currently is on BiPAP and says he is feeling better. Physical Exam (per Admitting): General Appearance: WD/WN, no apparent distress, + pertinent finding ( Chronic ill appearing) Head: normocephalic, atraumatic Eyes: normal inspection, PERRL, sclerae normal ENT: normal ENT inspection, hearing grossly normal Neck: supple, trachea midline Respiratory/Chest: chest non-tender, no accessory muscle use, + pertinent finding (Rales and rhonchi R>L. ) Cardiovascular: no murmur, + irregularly irregular, + pertinent finding (+ B /L edema) Abdomen/GI: normal bowel sounds, non tender, soft Back: normal inspection Extremities/Musculoskelatal: normal inspection, + pedal edema, + pertinent finding (Left 3rd toe gangrenous ) Neurologic/Psych: fund director II-XII nml as tested, alert, normal mood/affect, + pertinent finding (Grossly no motor deficits) Skin: normal color, warm/dry Hospital Course 86 yo M presented from [facility] with shortness of breath and hypoxia and admitted to the ICU for severe sepsis of uncertain origin. SEVERE SEPSIS - Resolved Unclear source. Likely : Pneumonia. Other possibilities considered: PICC line, but cultures - negative. 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 Was started on levofloxacin outpatient for possible pneumonia. -On IV Daptomycin, S/P Zosyn (Days x 7). Discontinued Zosyn as 7 days completed. To continue Daptomycin for hx of septic arthritis/left 3rd gangrene as mentioned below -Work up - Catheter tip culture - negative, Blood culture x 2 - negative, UA - > 100k Yeast not evon, CXR- Pulmonary edema with B/L parenchymal infiltrates -ID on board ACUTE HYPOXIC RESPIRATORY FAILURE - Resolved Likely secondary to CHF exacerbation / Pneumonia. -Received IV lasix as below. -S/P 3 -4 L oxygen - weaned off ---> now saturating well on RA -Speech therapy done - Regular diet with thin liquids with aspiration precautions recommended. CHF EXACERBATION, DIASTOLIC -Was on lasix 20 mg ---> Increased to 40 mg IV BID ON 09/23/16 --> Changed to Lasix 20 mg daily on 09/25/16. Continue with lasix 20 mg daily -CXR - CHF -Monitor volume status EPISTAXIS- Resolved Had just one mild episode on 09/23/16 -Resolved by itself -Aspirin was held. Restarted it GLEN ON CKD-III - Improved -Baseline : 1.8--> 2.10-->1.90 (near his baseline) -Likely secondary to being on lasix. Lasix changed to PO and tolerating this dose -Monitor outpatient SEVERE HYPOKALEMIA -Resolved. K supplement ordered -Monitor ABNORMAL UA -As came with severe sepsis with unclear source of infection, UA - >[id number] Yeast , started on diflucan on 09/20/16 . Okay to discontinue on 09/27/16 as finished course for 7 days. 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 S/P IV Zosyn x 7 days for probable pneumonia (Discontinued on 09/25/16). -ID on board. Discussed : Recommends IV Daptomycin for total of 4 weeks. (till - Start date was 09/05/16). PICC line placed today -Plan was for surgery for 3rd toe amputation as planned prior to admission on 09/22/16, but cancelled for now,. Will need to be rescheduled out patient after recovers from this hospitalization per discussion with Dr Jefferson. DM-II -ISS, Accuchecks HX OF CAD -Stable -Held Statin due to on daptomycin. Ok to restart after done with daptomycin. Continue with ASA CHRONIC ANEMIA -Stable CHRONIC ATRIAL FIBRILLATION -Not on anticoagulation (discontinued previously due to epistaxis and unsteady gait) DVT Px: Heparin SQ Code Status: DNR/DNI DISPOSITION PT/OT on board Unable to go to [facility] as on Daptomycin. Referral made to [facility]. Okay to discharge to [facility] today Updated daughter over phone today Agreeable with discharge plan-- Total time spent on discharge = 40 minutes This includes examination of the patient, discharge planning, medication reconciliation, and communication with other providers. Discharge Instructions Activity Recommendations Activity Limitations: per Instructions/Follow-up section (As tolerated with assistance. PT/OT recommended) . Instructions / Follow-Up Instructions / Follow-Up MEDICATION CHANGES: 1. Daptomycin IV to be continued as per instructions till 10/03/16 (Begin date ) for Left toe gangrene. FOLLOW UP `1. Follow up with PCP in 1 week 2. Follow up with vascular surgery re: rescheduling his appt for Left toe gangrene amputation which was post poned due to current hospitalization Call your Primary Care doctor if any of the following symptoms or problems start or get worse: * Shortness of breath or difficulty breathing * Wake up at night short of breath * Chest pain * Cough * Swelling of your hands, feet, or legs * More fatigued or tired with your normal activity * Palpitations - sudden fast heart beats WEIGHT * Weigh yourself every morning after using the bathroom. * Use the same scale. * Wear the same amount of clothing. * Write your weight down on a chart. * Call your Primary Care doctor if you gain more than 2-3 pounds in 1-2 days. MEDICATIONS * Use this discharge instruction sheet for medication instructions. * Take your medications at the time your doctor ordered. * Do not skip a dose of your medicines. * If you miss a dose of medicine, take it as soon as possible, but DO NOT DOUBLE A DOSE. * Read your medicine information when you get home. * Know all of the side effects of your medicine. If in doubt, ask your pharmacist * Call your Primary Care doctor's office if you have any side effects. * Be sure all of your doctors know what medicine and herbs you take (including cold, flu, and herbal medicine). Take the following with you to your follow-up doctor appointments: * Weight Chart * Medication List * List of questions Do not drink excessive alcohol, beer or wine. Current Hospital Diet Patient's current hospital diet: Diabetes Type 2 Diet Discharge Diet Recommended Diet: AHA Diet (Heart Healthy) (with thin liquids and aspiration precautions per speech therapist), Low Sodium Diet (2gm Na), Diabetes Type 2 Diet Pending Studies Studies pending at discharge: no Laboratory Results Hemoglobin A1c Test 09/20/16 06:20 Range/Units Estimated Average Glucose 140 mg/dl Hemoglobin A1c 6.5 H 4.5-5.6 % Medical Emergencies . Who to Call and When: Call 911 or go to the Emergency Room if: * If at any time you feel your situation is an emergency * You have tightness or pain in your chest that does not go away with rest or Nitroglycerin * You are very short of breath even with rest . Non-Emergent Contact Non-Emergency issues call your: Primary Care Provider . . "Provider Documentation" section prepared by Karine Young. . VTE Core Measure Inpt VTE Proph given/why not?: Unfractionated heparin SQ
--- NOTE | 2016-09-27 15:38 | DIAGNOSTIC IMAGING REPORT ---
CHEST ONE VIEW PORTABLE HISTORY:86 yearsMalePICC repositioned COMPARISON: 09/27/2016 at 2:38 PM TECHNIQUE: Upright AP view of the chest FINDINGS: Left-sided PICC distal tip terminates in the expected region of the right atrium. Cardiac silhouette is again enlarged. Prior median sternotomy. There is atherosclerosis of the aorta. There is generally stable appearance of the bilateral upper lobe, alveolar opacities. There is persistent trace blunting of the left costophrenic angle suggesting small effusion. The bones are grossly intact. IMPRESSION: 1. Left-sided PICC terminates in the expected region of the right atrium. 2. Cardiomegaly with unchanged bilateral alveolar opacities and suspected trace left pleural effusion. The above report was generated using voice recognition software. It may contain grammatical, syntax or spelling errors. Electronically signed by: Dominik Yeung 09/27/2016 3:37 PM Dictated Date/Time: 09/27/2016 3:35 PM
[2016-09-27 16:06] VITALS: BP 121/63; PULSE 91; TEMP 36.7; O2SAT 96
--- NOTE | 2016-09-27 16:31 | DIAGNOSTIC IMAGING REPORT ---
CHEST ONE VIEW PORTABLE CLINICAL HISTORY: picc adjustment COMPARISON STUDY: 09/27/2016 FINDINGS: There are postsurgical changes of a midline sternotomy. The left-sided PICC catheter is positioned with its tip at or just inferior to the atriocaval junction. There is blunting of both lateral costophrenic angle suggesting trace effusions. There are bilateral upper lung zone airspace opacities.[ IMPRESSION: 1. Bilateral upper lung zone airspace opacities 2. The left-sided PICC catheter is positioned with its tip at or just inferior to the atrial caval junction Electronically signed by: Michoacano Christopher M.D. 09/27/2016 4:29 PM Dictated Date/Time: 09/27/2016 4:28 PM
[2016-10-19] MEDS ORDERED: OXYC-57 PO (08:09)
[2016-11-11] MEDS ORDERED: PIPE2SOL IV (12:48)
[2016-11-11] MEDS ORDERED: NYSS5 PO (12:48)
[2016-11-11] MEDS ORDERED: HPRIS5M SQ (12:48)
[2016-11-11] MEDS ORDERED: MCRK20 PO (12:48)
[2016-11-11] MEDS ORDERED: LSX20 PO (12:51)
[2016-12-06] MEDS ORDERED: ASCO1CAP3 PO (12:46)
[2016-12-06] MEDS ORDERED: NVLGI/PEN SQ (13:17)
[2016-12-06] MEDS ORDERED: PROTEIN PO (13:17)
[2016-12-20] MEDS ORDERED: ULT50X PO (19:08)
== END 2016-09-27 18:30 | DRG 871 ==
LOC: EDBD 15:19 → C.EDC 15:21 → C.MSICU 19:05 → EDBEDREQ 19:11 → ENRESERV 19:18 → C.MED 09-21 12:51
PROVIDERS: ADMIT Internal Medicine; ATTEND Internal Medicine
PROC: 02HV33Z Insertion of Infusion Device into Superior Vena Cava, Percutaneous Approach (ICD-10-PCS; principal; 2016-09-27)
DX: A41.9 Sepsis, unspecified organism (principal); J96.01 Acute respiratory failure with hypoxia; J18.9 Pneumonia, unspecified organism; G93.41 Metabolic encephalopathy; I50.33 Acute on chronic diastolic (congestive) heart failure; E11.52 Type 2 diabetes mellitus with diabetic peripheral angiopathy with gangrene; I13.0 Hypertensive heart and chronic kidney disease with heart failure and stage 1 through stage 4 chronic kidney disease, or unspecified chronic kidney disease; E87.3 Alkalosis; N17.9 Acute kidney failure, unspecified; R65.20 Severe sepsis without septic shock; D64.9 Anemia, unspecified; E87.6 Hypokalemia; E11.22 Type 2 diabetes mellitus with diabetic chronic kidney disease; E11.319 Type 2 diabetes mellitus with unspecified diabetic retinopathy without macular edema; E11.40 Type 2 diabetes mellitus with diabetic neuropathy, unspecified; E11.65 Type 2 diabetes mellitus with hyperglycemia; N18.3 Chronic kidney disease, stage 3 (moderate); I48.2 Chronic atrial fibrillation; I25.2 Old myocardial infarction; I73.9 Peripheral vascular disease, unspecified; I25.10 Atherosclerotic heart disease of native coronary artery without angina pectoris; E78.5 Hyperlipidemia, unspecified; M06.9 Rheumatoid arthritis, unspecified; R04.0 Epistaxis; Z66 Do not resuscitate; Z79.2 Long term (current) use of antibiotics; Z79.4 Long term (current) use of insulin; Z79.82 Long term (current) use of aspirin; Z79.899 Other long term (current) drug therapy; Z95.1 Presence of aortocoronary bypass graft; Z95.2 Presence of prosthetic heart valve; Z87.891 Personal history of nicotine dependence; Z89.421 Acquired absence of other right toe(s)

== ENCOUNTER 2016-10-19 05:32 | Day surgery (SDC) | payer OTHER, MEDICARE ==
[2016-10-15 10:54] VITALS: BMI 24.0
[~2016-10-19] VITALS: Ht 177.8 cm; Wt 78.2 kg
[~2016-10-19 05:32] MED LIST changes: +ACET-1256 PO; +CHOL20007 PO; -CHOL20009 PO; -DAPT500I IV; -ERTA1INJ IV; +FERR1TAB13 PO; -FLV1 PO; +FOLI1TAB7 PO; +FURO-85 PO; -LSX40 PO; -MULT-506 PO; +MULT-513 PO; +NVLG SC; -NVLRPUC SQ; -RRNOVOLINR SQ; -RXC5 PO
[2016-10-19 05:56] VITALS: BP 133/80; PULSE 93; TEMP 36.4; O2SAT 97; Ht 177.8 cm; Wt 78.2 kg
[2016-10-19] MEDS ORDERED: SODIUM CHLORIDE 0.9% 1000ML 1,000 ML IV SCH (06:00)
[2016-10-19] MEDS ORDERED: FENTANYL CITRATE INJ 50 MCG/1 ML 2 ML VIAL ONE (07:00)
[2016-10-19] MEDS ORDERED: MIDAZOLAM HCL 1 MG/ML 2ML VIAL ONE (07:00)
[2016-10-19] MEDS ORDERED: BUPIVACAINE/EPINEPHRINE 0.5% MPF 1:200,000 10 ML VIAL ONE (07:02)
[2016-10-19] MEDS ORDERED: LIDOCAINE HCL 1% 20 ML VIAL ONE (07:02)
--- NOTE | 2016-10-19 07:14 | History and Physical ---
History & Physical Date of Service Oct 19, 2016. History & Physical Chief Complaint Gangrene left third toe History of Present Illness Mr. Herrera is a 86 year old male with Hx of Afib, S/P AVR, DM, HTN, CKD, arthritis, GERD, anemia, cerebrovascular disease, PAD with S/P right fem-DP bypass [address] Bob (known to be occluded), BLE claudication who was being seen in consultation for evaluation of his LLE peripheral vascular disease. He developed gangrene of the left third toe and underwent femoral artery endart with patch. Here for amputation of gangrenous left third toe H Allergies Coded Allergies: Lisinopril (Unverified Allergy, Unknown, COUGHING, 08/20/16) Home Medications Scheduled Aspirin Enteric Coated (Ecotrin Or Generic), 81 MG PO QAM Cholecalciferol (Vitamin D), 2,000 UNIT PO QAM Daptomycin (Daptomycin), 500 MG IV Q2D Ertapenem Sodium (Invanz), 1 GM IV DAILY Folic Acid (Folic Acid), 1 MG PO QAM Furosemide (Furosemide), 40 MG PO DAILY Insulin Glargine (Lantus), 15 UNITS SC QPM Insulin Human Regular (Novolin R), 15 UNITS SQ DAILYBB Insulin Human Regular (Novolin R), 12 UNITS SQ DAILYBL Insulin Human Regular (Novolin R), 20 UNITS SQ DAILYBD Metoprolol Tartrate (Lopressor) (Lopressor), 25 MG PO BID Multivitamin (Multivitamin), 1 TAB PO DAILY Potassium Chloride (Micro-K Ext Rel), 10 MEQ PO DAILY Scheduled PRN Oxycodone HCl (Oxycodone HCl), 5 MG PO Q6H PRN for moderately severe pain Problem List Medical Problems: (1) Aortic stenosis (2) Atrial fibrillation (3) Carotid arterial disease (4) CKD (chronic kidney disease), stage III (5) Diabetes mellitus, type 2 (6) Diabetic peripheral neuropathy associated with type 2 diabetes mellitus (7) Dyslipidemia (8) History of adenomatous polyp of colon (9) History of diabetic ulcer of foot (10) Hypertension (11) Peripheral vascular disease (12) Rheumatoid arthritis Surgical Problems: (1) Status post amputation of toe of right foot (2) Status post aortic valve replacement with bioprosthetic valve (3) Status post cardiac catheterization (4) Status post cataract extraction (5) Status post cholecystectomy (6) Status post coronary artery bypass grafting Surgical / Medical History Hx Cardiac Surgery: Yes (BYPASS SURGERY) Hx Abdominal Surgery: Yes (ANAID) Hx Cancer Surgery: Yes (SKIN CANCER REMOVED/BIOPSIES) Hx Thoracic Surgery: No Hx Orthopedic: Yes (TOE AMPUTATION- R FOOT 2ND TOE) Hx Urinary Tract Surgery: No Past Medical/Surgical History: Other (Right Fem-DP bypass) Family History Cancer BROTHER SISTER Coronary artery disease FATHER Kidney disease BROTHER Cancer BROTHER SISTER Coronary artery disease FATHER Kidney disease BROTHER Social History Smoking Status: Former Smoker Hx Tobacco Use In Past Year?: No Hx Alcohol Use - Type & Amnt: No Hx Substance Use -Type & Amnt: No Review of Systems Constitutional: No chills, No fever Skin: + change in color Eyes: No visual changes ENMT: No nasal congestion Respiratory: No cough Cardiovascular: No chest pain Gastrointestinal: No abdominal pain, No diarrhea, No nausea, No vomiting Musculoskeletal: + joint swelling, + muscle pain, No back pain Neurologic: No headache Psychiatric: No depression Physical Exam Constitutional: General Apperance: heathly-appearing Level of Distress: NAD Ambulation: limited ambulation Head: normocephalic, atraumatic ENMT: normal ENT inspection Neck: supple, trachea midline Lungs: Respiratory effort: no dyspnea Peripheral Pulses: Femoral Pulse: normal on the right, decreased on the left Posterior Tibialis Pulse: absent on the left, absent on the right Dorsalis Pedis Pulse: absent on the left, absent on the right Abdomen: Inspection & Palpation: soft, non-distended, no tenderness, guarding & rebound Musculoskeletal: pertinent finding (left knee swelling, left 3rd toe gangrene, s/p Right 2nd toe amp) Additional Comments: Motor intact in BLE, decrease sensation at baseline Assessment and Plan Imp: Gangrene left third toe Plan: Patient of amputation left third toe. I have discussed the risks options and benefits of the procedure with the patient. The patient understands the risks options and benefits and agrees to the procedure.
[2016-10-19] MEDS ORDERED: LIDOCAINE HCL 2% 2 ML VIAL (20MG/ML) ONE (07:53)
[2016-10-19] MEDS ORDERED: PROPOFOL IV EMULSION 10 MG/ML 20 ML VIAL IV ONE (07:53)
--- NOTE | 2016-10-19 08:08 | [facility] Operative Report ---
Operative Report Operative Date Oct 19, 2016. Pre-Operative Diagnosis Gangrene left third toe Post-Operative Diagnosis Gangrene left third toe Procedure(s) Performed Left 3rd Toe Amputation Surgeon Dr Jefferson Guard Rail Installer Surgeon(s) None Estimated Blood Loss 2cc Findings gangrene left third toe Specimens A. Left third toe (placed in NSS for release as per consent) Anesthesia Local with sedation Complication(s) None Disposition Recovery Room / PACU Indications This is an 86-year-old male who underwent a left femoral artery endarterectomy with patch angioplasty for iliac artery occlusion and gangrene of the left third toe. The angioplasty is working nicely. He is now admitted for amputation of the left third toe. Description of Procedure The patient was taken to the operating room and placed in supine position. The left foot was then prepped and draped in a sterile manner. Local anesthetic was then administered for a digital block. A circular incision was made around the base of the gangrenous toe. This was done in the line of good tissue. The periosteum of the proximal phalanx was then elevated. Once this was done the toe was transected using a rongeur. Good bleeding was seen at that time. The wound edges were then closed in the usual fashion using interrupted 4-0 nylon sutures. Sterile dressings were applied to the wound. The patient left the operating room in good condition tolerated procedure well. I attest to the content of the Intraoperative Record and any orders documented therein. Any exceptions are noted below.
[2016-10-19] MEDS ORDERED: OXYC-57 PO (08:09)
--- NOTE | 2016-10-19 08:11 | Discharge Instructions ---
Discharge Instructions Date of Service Oct 19, 2016. Visit Reason for Visit: Gangrene Of Left Third Toe Discharge Discharge Diagnosis / Problem: Gangrene left third toe, amputation of left third toe Discharge Goals Goal(s): Therapeutic intervention Activity Recommendations Activity Limitations: per Instructions/Follow-up section Anesthesia . Post Anesthesia Instructions: If you have had General Anesthesia or IV Sedation: * Do not drive today. * Resume driving when surgeon permits. * Do not make important decisions or sign legal documents today. * Call surgeon for: 1. Temperature elevations greater than 101 degrees F. 2. Uncontrollable pain. 3. Excessive bleeding. 4. Persistent nausea and vomiting. 5. Medication intolerance (nausea, vomiting or rash). * For nausea and vomiting use only clear liquids such as: tea, soda, bouillon until nausea subsides, then gradually increase diet as tolerated. * If you have any concerns or questions, call your surgeon's office. If physician is unavailable and it is an emergency, call 911 or go to the nearest emergency room. . Instructions / Follow-Up Instructions / Follow-Up Call [phone] to schedule a follow up appointment if one not already scheduled. ACTIVITY RECOMMENDATIONS: Full weight bearing SPECIAL CARE INSTRUCTIONS: Call your doctor if: * Temperature above 101 degrees * Pain not relieved by pain medicine ordered * There is increased drainage or redness from any incision * You have any unanswered questions or concerns. Diet Recommendations Recommended Home Diet: resume previous diet Procedures Procedures Performed: Left 3rd Toe Amputation Pending Studies Studies pending at discharge: no Medical Emergencies . Who to Call and When: Medical Emergencies: If at any time you feel your situation is an emergency, please call 911 immediately. . Non-Emergent Contact Non-Emergency issues call your: Surgeon . . "Provider Documentation" section prepared by Baldo Jefferson. .
--- NOTE | 2016-10-19 08:25 | Anesthesiology Progress Note ---
Anesthesia Post Op Note Date & Time Oct 19, 2016 at 08:24 Vital Signs Pain Intensity: 0 Vital Signs Past 12 Hours Date Time Temp Pulse Resp B/P (MAP) Pulse Ox O2 Delivery O2 Flow Rate FiO2 10/19/16 08:20 36.3 65 16 106/58 96 Room Air 10/19/16 08:10 75 16 118/56 96 Room Air 10/19/16 08:02 36.4 70 13 114/62 100 Room Air 10/19/16 05:56 36.4 93 22 133/80 (97) 97 Room Air Notes Mental Status: alert / awake / arousable, participated in evaluation Pt Amnestic to Procedure: Yes Nausea / Vomiting: adequately controlled Pain: adequately controlled Airway Patency, RR, SpO2: stable & adequate BP & HR: stable & adequate Hydration State: stable & adequate Anesthetic Complications: no major complications apparent
[2016-10-19 08:30] VITALS: BP 135/63; PULSE 75; TEMP 36.7; O2SAT 94
[2016-10-19] MEDS ORDERED: EpHEDrine SULFATE INJ 50 MG/ML AMP IV PRN (08:30)
[2016-10-19] MEDS ORDERED: ATROPINE SULFATE 0.1 MG/ML 5ML SYR IV PRN (08:30)
[2016-10-19 09:00] VITALS: BP 143/64; PULSE 59; TEMP 36.5; O2SAT 96
[2016-11-11] MEDS ORDERED: MCRK20 PO (12:48)
[2016-11-11] MEDS ORDERED: NYSS5 PO (12:48)
[2016-11-11] MEDS ORDERED: HPRIS5M SQ (12:48)
[2016-11-11] MEDS ORDERED: PIPE2SOL IV (12:48)
[2016-11-11] MEDS ORDERED: LSX20 PO (12:51)
[2016-12-06] MEDS ORDERED: ASCO1CAP3 PO (12:46)
[2016-12-06] MEDS ORDERED: NVLGI/PEN SQ (13:17)
[2016-12-06] MEDS ORDERED: PROTEIN PO (13:17)
[2016-12-20] MEDS ORDERED: ULT50X PO (19:08)
== END 2016-10-19 09:19 | disposition home or self-care (01) ==
LOC: C.ACU 05:32
PROVIDERS: ATTEND Surgery Vascular Surgery
DX: I96 Gangrene, not elsewhere classified (principal); I48.91 Unspecified atrial fibrillation; N18.3 Chronic kidney disease, stage 3 (moderate); E11.40 Type 2 diabetes mellitus with diabetic neuropathy, unspecified; I12.9 Hypertensive chronic kidney disease with stage 1 through stage 4 chronic kidney disease, or unspecified chronic kidney disease; K21.9 Gastro-esophageal reflux disease without esophagitis; I73.9 Peripheral vascular disease, unspecified; E78.5 Hyperlipidemia, unspecified; M06.9 Rheumatoid arthritis, unspecified; Z95.2 Presence of prosthetic heart valve; Z79.82 Long term (current) use of aspirin; Z79.4 Long term (current) use of insulin; Z86.010 Personal history of colon polyps; Z90.49 Acquired absence of other specified parts of digestive tract; Z95.1 Presence of aortocoronary bypass graft; Z85.828 Personal history of other malignant neoplasm of skin; Z87.891 Personal history of nicotine dependence; Z89.421 Acquired absence of other right toe(s); Z82.49 Family history of ischemic heart disease and other diseases of the circulatory system; Z84.1 Family history of disorders of kidney and ureter

== ENCOUNTER 2016-11-05 09:36 | Inpatient (IN) | payer OTHER, MEDICARE ==
[~2016-11-05] VITALS: Ht 177.8 cm; Wt 80.8 kg
[~2016-11-05 09:36] MED LIST changes: +OXYC-57 PO
[2016-11-05] MEDS ORDERED: IBUPROFEN 800 MG TAB PO STA (09:59)
[2016-11-05 10:54] LABS: BASO % 0.2 %; BASO ABS # 0.02 K/uL (0-0.2); COMPLETE YES; EOS % 0.5 %; HEMATOCRIT 30.3 % (42-52); IG% 0.2 %; LYMPH % 7.6 %; LYMPH ABS # 0.72 K/uL (1.2-3.4); MEAN CELL VOLUME 88.6 fL (80-100); MEAN CORPUSCULAR HEMOGLOBIN 26.3 pg (25-34); MEAN CORPUSCULAR HGB CONC 29.7 g/dl (32-36); MEAN PLATELET VOLUME 10.4 fL (7.4-10.4); MONO % 11.6 %; NEUT % 79.9 %; PLATELET COUNT 182 K/uL (130-400); RED BLOOD COUNT 3.42 M/uL (4.7-6.1); WHITE BLOOD COUNT 9.48 K/uL (4.8-10.8)
--- NOTE | 2016-11-05 11:10 | DIAGNOSTIC IMAGING REPORT ---
LEFT TIBIA/FIBULA 2 VIEWS ROUTINE CLINICAL HISTORY: Redness and swelling. Evaluate for osteomyelitis. COMPARISON: None. DISCUSSION: The bones are osteopenic. There are vascular calcifications present. No acute fractures are visualized. There is no conventional radiographic evidence of osteomyelitis. There is a flatfoot deformity. Vascular clips are present within the medial soft tissues. IMPRESSION: 1. Osteopenia 2. No acute fractures 3. No evidence of osteomyelitis Electronically signed by: Michoacano Christopher M.D. 11/05/2016 11:08 AM Dictated Date/Time: 11/05/2016 11:08 AM
--- NOTE | 2016-11-05 11:13 | EMERGENCY ROOM VISIT NOTE ---
History Report prepared by Pattie: Dajuan Palma Under the Supervision of: Dr. Lb Huggins M.D. First contact with patient: 09:49 Chief Complaint: FOOT PAIN Stated Complaint: SWELLING/REDNESS IN L FOOT AND ANKLE History of Present Illness The patient is a 86 year old male who presents to the Emergency Room with complaints of constant left foot pain that began August 20. He is accompanied by his daughter who states that he came into the ED August 20 for gangrene in his left middle toe. She reports that he was admitted for a couple of surgeries , including a vascular surgery to restore blood flow to the leg. His daughter describes the surgery as a "scraping". She reports that he also had knee surgery due to septic arthritis. His daughter states that 2 days after, his knee started to swell up. She states that he went to see Dr. Jefferson to get his knee infection washed out. His daughter states that he was on IV antibiotics for 6 weeks. She states that he was then sent to rehab, but had to return to the hospital due to a case of pneumonia. His daughter states that he was discharged with antibiotics and went back to rehab until mid September. The patient admits that he had amputation of his middle left toe on October 19. The patient states that he went to visit Dr. Arnol Morelos, who specializes in special diseases two weeks ago, but denies any diagnosis. His daughter reports that he followed up with Dr. Jefferson a week ago, where he noticed the foot was swollen and erythematous, which caused him to prescribe antibiotics. The patient is also accompanied by his son who states that for the last couple of days the patient has been disoriented and experiencing a loss of appetite. He also states that the patient's foot has been erythematous, swollen, and has an odor. His son states that the patient has also been experiencing a metallic taste in his mouth for the last couple of days, but states that he has not experienced this symptom much today. His daughter states that he also had a low grade fever of 99 , but his temperature is usually 97. The patient's son states that yesterday, the patient finished his last dose of antibiotics and saw his doctor yesterday to have his stitches taken out. He reports that Dr. Jeffersno discussed changing antibiotics and starting a new course. The patient admits that he has a history of thrush, which he used Nystatin for. The patient states that during his thrust , he had a white tongue, but denies any black coloration. He also admits that he has a history of Diabetes Mellitus, which he uses insulin for. He admits to a water blister on his foot that popped the other day. He states that he has been wearing a boot instead of his regular sneakers to help alleviate the pain. The patient admits that he takes Aspirin daily and cannot take blood thinners due to a history of epistaxis. The patient denies nausea, vomiting, SOB, and cough. Source of History: patient Onset: August 20 Position: foot (left) Quality: other (erythamatous, swollen, odor) Associated Symptoms: No cough, No SOB, No nausea, No vomiting Review of Systems See HPI for pertinent positives and negatives. A total of ten systems were reviewed and were otherwise negative. Past Medical & Surgical Medical Problems: (1) Aortic stenosis (2) Atrial fibrillation (3) Carotid arterial disease (4) CKD (chronic kidney disease), stage III (5) Diabetes mellitus, type 2 (6) Diabetic peripheral neuropathy associated with type 2 diabetes mellitus (7) Dyslipidemia (8) History of adenomatous polyp of colon (9) History of diabetic ulcer of foot (10) Hypertension (11) Peripheral vascular disease (12) Rheumatoid arthritis (13) Septic joint of left knee joint (14) Systolic and diastolic CHF, chronic Surgical Problems: (1) Status post amputation of toe of left foot (2) Status post amputation of toe of right foot (3) Status post aortic valve replacement with bioprosthetic valve (4) Status post cataract extraction (5) Status post cholecystectomy (6) Status post coronary artery bypass grafting Family History Cancer BROTHER SISTER Coronary artery disease FATHER Kidney disease BROTHER Social History Smoking Status: Former Smoker Drug Use: none Marital Status: Occupation Status: retired Current/Historical Medications Scheduled Aspirin Enteric Coated (Ecotrin Or Generic), 81 MG PO QAM Cholecalciferol (Vitamin D3), 2,000 UNITS PO QAM Ferrous Sulfate (Kp Ferrous Sulfate), 1 TAB PO BID Folic Acid (Folvite), 1 MG PO QAM Furosemide (Lasix), 20 MG PO QAM Insulin Glargine (Lantus), UNITS SC HS Insulin Human Regular (Novolin R), UNITS SQ TIDM Metoprolol Tartrate (Lopressor) (Lopressor), 25 MG PO BID Multivitamins/Minerals (Mvi With Minerals), 1 TAB PO QAM Potassium Chloride (Micro-K Ext Rel), 10 MEQ PO QAM Scheduled PRN Acetaminophen (Tylenol), 500 MG PO Q4 PRN for Mild Pain Allergies Coded Allergies: HERMAN Inhibitors (Verified Allergy, Intermediate, UNKNOWN, 11/05/16) Lisinopril (Verified Adverse Reaction, Unknown, COUGHING, 11/05/16) Physical Exam Vital Signs Date Time Temp Pulse Resp B/P (MAP) Pulse Ox O2 Delivery O2 Flow Rate FiO2 11/05/16 13:59 93 17 129/64 96 Room Air 11/05/16 13:03 99 17 120/76 98 11/05/16 12:41 Room Air 11/05/16 11:30 70 16 133/81 95 Room Air 11/05/16 09:39 36.3 85 20 113/60 97 Room Air Physical Exam GENERAL: Awake, alert, well-appearing, in no distress HENT: Normocephalic, atraumatic. Dry mucous membranes. Black hue to his tongue with scattered darkened areas on his lips. EYES: Normal conjunctiva. Sclera non-icteric. NECK: Supple. No nuchal rigidity. FROM. No JVD. RESPIRATORY: Clear to auscultation. CARDIAC: Regular rate, normal rhythm. Extremities warm and well perfused. Pulses equal. ABDOMEN: Soft, non-distended. No tenderness to palpation. No rebound or guarding. No masses. RECTAL: Deferred. MUSCULOSKELETAL: Chest examination reveals no tenderness. The back is symmetrical on inspection without obvious abnormality. There is no CVA tenderness to palpation. No joint edema. LOWER EXTREMITIES: LLE with 1+ edema. Erythema and warmth to the proximal tibia and fibula down into his foot. No crepitus. Increasing erythema, warmth, and induration distally. Prior amputation site with purulent discharge. No clear fluctuant areas around site. NEURO: Normal sensorium. No sensory or motor deficits noted. SKIN: No rash or jaundice noted. Medical Decision & Procedures ER Provider Diagnostic Interpretation: X-ray: Per my interpretation, radiologist review. LEFT TIBIA/FIBULA 2 VIEWS ROUTINE CLINICAL HISTORY: Redness and swelling. Evaluate for osteomyelitis. COMPARISON: None. DISCUSSION: The bones are osteopenic. There are vascular calcifications present. No acute fractures are visualized. There is no conventional radiographic evidence of osteomyelitis. There is a flatfoot deformity. Vascular clips are present within the medial soft tissues. IMPRESSION: 1. Osteopenia 2. No acute fractures 3. No evidence of osteomyelitis Electronically signed by: Michoacano Christopher M.D. 11/05/2016 11:08 AM Dictated Date/Time: 11/05/2016 11:08 AM LEFT FOOT MIN 3 VIEWS ROUTINE CLINICAL HISTORY: swelling warmth., r/o osseous involvement pain. Edema. COMPARISON: None. DISCUSSION: Severe degenerative change throughout all major osseous structures. Prior amputation of the bulk of the phalanges of the third toe. Findings consistent with chronic dislocation of the second metatarsal phalangeal joint. Severe deterioration first metatarsophalangeal joint. Bony mineralization is uniformly diminished throughout. There is a pars planus deformity of the calcaneus. There may be a potentially developing neuropathic joint. The possibility of a lytic process relating to a residual component of the proximal phalanx of the third toe is considered.. There is no evidence for soft tissue swelling. IMPRESSION: 1. Apparent prior amputation of the bulk of the phalanges of the third toe. 2. Residual proximal phalanx suggests developing erosive change and underlying osteomyelitis. 3. Severe degenerative change of all remaining joints as discussed above. 4. Potential developing neuropathic type joint The above report was generated using voice recognition software. It may contain grammatical, syntax or spelling errors. Electronically signed by: Morteza King M.D. 11/05/2016 11:10 AM Dictated Date/Time: 11/05/2016 11:08 AM LEFT ANKLE MIN 3 VIEWS ROUTINE CLINICAL HISTORY: Redness. Warmth. Possible osteomyelitis. COMPARISON: None. DISCUSSION: The bones are osteopenic. No acute fractures are visualized. There is a flatfoot deformity. There are vascular calcifications. There is no conventional radiographic evidence of acute osteomyelitis. IMPRESSION: 1. Osteopenia 2. No acute fractures 3. No conventional radiographic evidence of acute osteomyelitis Electronically signed by: Michoacano Christopher M.D. 11/05/2016 11:10 AM Dictated Date/Time: 11/05/2016 11:09 AM ED-md bedside ULTRASOUND: No abscess. +Cobblestoning consistent with cellulitis. Laboratory Results 11/05/16 10:30 Red Blood Count 3.42, Mean Corpuscular Volume 88.6, Mean Corpuscular Hemoglobin 26.3, Mean Corpuscular Hemoglobin Concent 29.7, Mean Platelet Volume 10.4, Neutrophils (%) (Auto) 79.9, Lymphocytes (%) (Auto) 7.6, Monocytes (%) (Auto) 11.6, Eosinophils (%) (Auto) 0.5, Basophils (%) (Auto) 0.2, Neutrophils # (Auto ) 7.57, Lymphocytes # (Auto) 0.72, Monocytes # (Auto) 1.10, Eosinophils # (Auto ) 0.05, Basophils # (Auto) 0.02 11/05/16 10:30 Test 11/05/16 10:30 White Blood Count 9.48 K/uL (4.8-10.8) Red Blood Count 3.42 M/uL (4.7-6.1) Hemoglobin 9.0 g/dL (14.0-18.0) Hematocrit 30.3 % (42-52) Mean Corpuscular Volume 88.6 fL (80-100) Mean Corpuscular Hemoglobin 26.3 pg (25-34) Mean Corpuscular Hemoglobin Concent 29.7 g/dl (32-36) Platelet Count 182 K/uL (130-400) Mean Platelet Volume 10.4 fL (7.4-10.4) Neutrophils (%) (Auto) 79.9 % Lymphocytes (%) (Auto) 7.6 % Monocytes (%) (Auto) 11.6 % Eosinophils (%) (Auto) 0.5 % Basophils (%) (Auto) 0.2 % Neutrophils # (Auto) 7.57 K/uL (1.4-6.5) Lymphocytes # (Auto) 0.72 K/uL (1.2-3.4) Monocytes # (Auto) 1.10 K/uL (0.11-0.59) Eosinophils # (Auto) 0.05 K/uL (0-0.5) Basophils # (Auto) 0.02 K/uL (0-0.2) RDW Standard Deviation 58.5 fL (36.4-46.3) RDW Coefficient of Variation 17.9 % (11.5-14.5) Immature Granulocyte % (Auto) 0.2 % Immature Granulocyte # (Auto) 0.02 K/uL (0.00-0.02) Erythrocyte Sedimentation Rate 68 mm/hr (0-14) Prothrombin Time 13.6 SECONDS (9.0-12.0) Prothromb Time International Ratio 1.3 (0.9-1.1) Anion Gap 4.0 mmol/L (3-11) Est Creatinine Clear Calc Drug Dose 37.7 ml/min Estimated GFR () 51.6 Estimated GFR (Non- 44.5 BUN/Creatinine Ratio 18.1 (10-20) Calcium Level 8.6 mg/dl (8.5-10.1) C-Reactive Protein 7.09 mg/dl (0-0.29) Laboratory results reviewed by me Medications Administered Medications (Trade) Dose Ordered Sig/Rosemarie Route Start Time Stop Time Status Last Admin Dose Admin Cefepime HCl 2000 mg/Dextrose 122.6 ml @ 200 mls/hr NOW STAT IV 11/05/16 11:26 11/05/16 12:02 DC 11/05/16 11:48 200 MLS/HR Metronidazole (Flagyl / Nss) 500 mg NOW STAT IV 11/05/16 11:26 11/05/16 11:30 DC 11/05/16 11:39 500 MG Vancomycin HCl 1750 mg/Sodium Chloride 535 ml @ 200 mls/hr ONE STAT IV 11/05/16 11:26 11/05/16 14:06 DC 11/05/16 12:44 200 MLS/HR Sodium Chloride 1,000 ml @ 125 mls/hr Q8H STAT IV 11/05/16 11:26 11/05/16 16:23 DC 11/05/16 11:39 125 MLS/HR ED Course 0959: Ibuprofen 800 mg PO. 1010: The patient was evaluated in room B08. A complete history and physical exam was performed. 1126: Sodium Chloride 1000 ml @ 125 mls/hr IV, Vancomycin HCl 1750 mg/Sodium Chloride 535 ml @ 200 mls/hr IV, Metronidazole 500 mg IV, Cefepime HCl 2000mg/ Dextrose 122.6 ml @ 200 mls/hr IV. 1132: I reevaluated the patient and he is resting comfortably. I performed an ultrasound. 1147: I discussed the patient's case with Marilia Harp. She understands the patient's condition and agrees to accept the patient. The patient will be further evaluated. Medical Decision Triage Nursing notes reviewed. The patient's presentation and history were concerning for Cellulitis, abscess, osteomyelitis. This is a 78-year-old gentleman with a past medical history of diabetes with recent amputation of his left fourth phalanx presents emergency Department with worsening redness and and Prodium discharge from the amputation site per history of present illness. The patient is in no acute distress afebrile with stable vital signs. No significant erythema warmth and induration in the distal left lower extremity with purulent discharge appreciated from the previous amputation site. No clear areas of fluctuance. Considering this will do x-rays to rule out osseous involvement. And will follow-up labs as well. Incision worsening symptoms anticipate admission for IV antibiotics. Otherwise the patient does have a black coloration of his tongue and lips setting of recent treatment for thrush and also in the setting of recent courses of antibiotics over the past couple of months. We will send fungal culture of these areas help inform possible treatment. Will defer treatment to admitting team with possible ID consult. X-ray with osseous erosion at the site of the recent amputation concerning for osteomyelitis. Patient was cultured and was ordered for broad-spectrum antibiotics with vancomycin and cefepime as well as metronidazole for anaerobic coverage in this diabetic patient. Discussed the case with medicine team who will admit the patient to medicine service. Medication Reconcilliation Current Medication List: was personally reviewed by me Blood Pressure Screening Patient's blood pressure: Normal blood pressure Consults Time Called: 1147 Consulting Physician: Marilia Harp Returned Call: 1147 I discussed the patient's case with Marilia Harp. She understands the patient's condition and agrees to accept the patient. The patient will be further evaluated. Impression Primary Impression: Osteomyelitis Scribe Attestation The scribe's documentation has been prepared under my direction and personally reviewed by me in its entirety. I confirm that the note above accurately reflects all work, treatment, procedures, and medical decision making performed by me. Departure Information Dispostion Being Evaluated By Hospitalist Referrals Seng Narvaez III, M.D. (PCP) Patient Instructions My [facility]
[2016-11-05 11:14] LABS: BUN/CREATININE RATIO 18.1 (10-20); C-REACTIVE PROTEIN 7.09 mg/dl (0-0.29); CALCIUM 8.6 mg/dl (8.5-10.1); CREATININE 1.4 mg/dl (0.60-1.40); POTASSIUM 3.9 mmol/L (3.5-5.1)
[2016-11-05] MEDS ORDERED: METRONIDAZOLE 500MG / 100ML NSS IV STA (11:26)
[2016-11-05] MEDS ORDERED: SODIUM CHLORIDE 0.9% 1000ML 1,000 ML IV STA (11:26)
[2016-11-05] MEDS ORDERED: CEFEPIME IV 2,000 MG in DEXTROSE 5% 100ML 100 ML IV STA (11:26)
[2016-11-05] MEDS ORDERED: VANCOMYCIN INJ 1,750 MG in SODIUM CHLORIDE 0.9% 500ML 500 ML IV STA (11:26)
[2016-11-05 12:41] VITALS: Ht 177.8 cm; Wt 80.8 kg
[2016-11-05] MEDS ORDERED: ONDANSETRON INJ 2 MG/ML 2 ML VIAL IV PRN (13:00)
[2016-11-05] MEDS ORDERED: ACETAMINOPHEN 325 MG TAB PO PRN (13:00)
[2016-11-05] MEDS ORDERED: NVLRB SQ (13:04)
--- NOTE | 2016-11-05 13:08 | DIAGNOSTIC IMAGING REPORT ---
CHEST ONE VIEW PORTABLE CLINICAL HISTORY: shortness of breath COMPARISON STUDY: 09/27/2016 FINDINGS: The heart remains mildly enlarged. There are postsurgical changes of a midline sternotomy and aortic valve replacement.[ There is persistent interstitial thickening. There is a small left pleural effusion.. The left-sided PICC catheter has been removed. IMPRESSION: 1. Persistent interstitial thickening. This could be on a cardiogenic basis or related to inflammatory or infectious interstitial lung disease. 2. Small left pleural effusion Electronically signed by: Michoacano Christopher M.D. 11/05/2016 1:07 PM Dictated Date/Time: 11/05/2016 1:04 PM
[2016-11-05] MEDS ORDERED: GLUCOSE 10 TABS/TUBE PO PRN (13:15)
[2016-11-05] MEDS ORDERED: GLUCAGON FOR INJ 1 MG VIAL SQ PRN (13:15)
[2016-11-05] MEDS ORDERED: GLUCOSE 40% GEL 15 GM TUBE PO PRN (13:15)
[2016-11-05] MEDS ORDERED: DEXTROSE 50% 50 ML SYR IV PRN (13:15)
[2016-11-05] MEDS ORDERED: CONSULT PHARMACY STA (14:16)
[2016-11-05 14:59] VITALS: BP 127/64; PULSE 92; TEMP 36.4; O2SAT 95
[2016-11-05] MEDS ORDERED: VANCOMYCIN CONSULT ACTIVE PRN (15:30)
[2016-11-05] MEDS ORDERED: PIPERACILL/TAZOBAC CONSULT ACTIVE PRN (15:30)
--- NOTE | 2016-11-05 15:31 | Pharmacy Progress Note ---
Pharmacy Antibiotic Consult Date of Service: Nov 05, 2016. Pharmacy Dosing Scope Pharmacy is consulted to initiate [] IV dosing therapy, order appropriate labs and adjust drug dose/frequency. Subjective The patient is a 86 year old male admitted on Nov 05, 2016 at 14:16. Objective Height (Feet): 5 Height (Inches): 10.00 Weight (Kilograms): 80.800 Lab Results (24hrs): Test 11/05/16 10:30 White Blood Count 9.48 K/uL (4.8-10.8) Red Blood Count 3.42 M/uL (4.7-6.1) Hemoglobin 9.0 g/dL (14.0-18.0) Hematocrit 30.3 % (42-52) Mean Corpuscular Volume 88.6 fL (80-100) Mean Corpuscular Hemoglobin 26.3 pg (25-34) Mean Corpuscular Hemoglobin Concent 29.7 g/dl (32-36) Platelet Count 182 K/uL (130-400) Mean Platelet Volume 10.4 fL (7.4-10.4) Neutrophils (%) (Auto) 79.9 % Lymphocytes (%) (Auto) 7.6 % Monocytes (%) (Auto) 11.6 % Eosinophils (%) (Auto) 0.5 % Basophils (%) (Auto) 0.2 % Neutrophils # (Auto) 7.57 K/uL (1.4-6.5) Lymphocytes # (Auto) 0.72 K/uL (1.2-3.4) Monocytes # (Auto) 1.10 K/uL (0.11-0.59) Eosinophils # (Auto) 0.05 K/uL (0-0.5) Basophils # (Auto) 0.02 K/uL (0-0.2) RDW Standard Deviation 58.5 fL (36.4-46.3) RDW Coefficient of Variation 17.9 % (11.5-14.5) Immature Granulocyte % (Auto) 0.2 % Immature Granulocyte # (Auto) 0.02 K/uL (0.00-0.02) Erythrocyte Sedimentation Rate 68 mm/hr (0-14) Sodium Level 136 mmol/L (136-145) Potassium Level 3.9 mmol/L (3.5-5.1) Chloride Level 103 mmol/L (98-107) Carbon Dioxide Level 29 mmol/L (21-32) Anion Gap 4.0 mmol/L (3-11) Blood Urea Nitrogen 25 mg/dl (7-18) Creatinine 1.40 mg/dl (0.60-1.40) Est Creatinine Clear Calc Drug Dose 37.7 ml/min Estimated GFR () 51.6 Estimated GFR (Non- 44.5 BUN/Creatinine Ratio 18.1 (10-20) Random Glucose 136 mg/dl (70-99) Calcium Level 8.6 mg/dl (8.5-10.1) C-Reactive Protein 7.09 mg/dl (0-0.29) Micro Results: Date/Time Source Procedure Growth Status 11/05/16 10:32 Blood Blood Culture Pending Received 11/05/16 10:30 Blood Blood Culture Pending Received 11/05/16 12:25 Mouth Fungal Smear - Final Resulted 11/05/16 12:25 Mouth Fungal Culture Pending Resulted 11/05/16 10:40 Drainage - Surface Toe Right 3 Gram Stain - Final Resulted 11/05/16 10:40 Drainage - Surface Toe Right 3 Wound Culture Pending Resulted Recent Pertinent Medications Patient previously on Invanz for 6 weeks Assessment & Plan Loading dose: 1750 mg IV X 1 dose Assessment: * 86 yo M with previous toe amputation and 6 weeks of Invanz outpatient for foot infection * Per ED note X-ray may suggest osteomyelitis * 21 mg/kg loading dose given in ED (1750 mg x 1), also received 1x doses of cefepime/flagyl * SCr 1.4, CrCl 37.7 * T1/2 ~19 hours Plan: * Dose aggressively for penetration with vancomycin 1000 mg q18H * Check trough prior to 11/07 1600 dose Goal trough level estimate: between 18-20 mcg/mL. Pharmacy will continue to follow and will adjust dose/frequency as necessary. Thank you
--- NOTE | 2016-11-05 15:38 | History and Physical ---
History & Physical Date & Time of Service: Nov 05, 2016 ~ 12:30 Chief Complaint: Left 3rd Toe Infection Primary Care Physician: Seng Narvaez III, M.D. History of Present Illness 86 year old male who presents to the ER with increased redness and drainage to left 3rd toe amputation site. Patient has had two complicated admissions recently. First was 08/20 - 09/04 for PAD with left foot gangrene and left knee septic arthritis. Patient underwent endarterectomy of the left leg and also left knee arthroscopic irrigation and debridement. Synovial fluid was positive for micrococcus species. Patient was discharged on IV Dapto and Ertapenem for 4 weeks of therapy. Patient was then readmitted 09/19 - 09/27 for severe sepsis likely due to pneumonia. While admitted, Ertapenem was changed to Zosyn and patient completed 7 days of therapy. Due to the left knee septic arthritis and gangrene left toe infection, patient was discharged on IV Dapto to complete the initial 4 weeks of therapy. On 10/19, patient underwent left 3rd toe amputation by Dr. Jefferson. Post operatively, the patient developed increased redness and drainage. He was then placed on a 10 day course of Augmentin which he completed yesterday. Despite this antibiotic, the redness and drainage has persisted. He has been running low grade fevers of around 99 at home. He notes some increased calf pain. He was also treated for thrush. A couple of days ago, he noticed his tongue to become black and has a metallic taste in his mouth. He reports shortness of breath with minimal exertion. He denies chest pain and palpitations. No lightheadedness, dizziness, diaphoresis, or syncopal events. He has had a poor appetite over the past couple of days due to the metallic taste. He denies nausea, vomiting, or diarrhea. No urinary symptoms. In the ER, left foot XR is showing residual proximal left 3rd phalanx suggests developing erosive change and underlying osteomyelitis. WBC is 9.4, patient is afebrile and vitals are stable. ESR and CRP are elevated. He was treated with IV Vanco, Cefepime, and Flagyl. Past Medical/Surgical History Medical Problems: (1) Aortic stenosis Permanent Comment: s/p AVR Status: Chronic (2) Atrial fibrillation Status: Chronic (3) Carotid arterial disease Status: Chronic (4) CKD (chronic kidney disease), stage III Status: Chronic (5) Diabetes mellitus, type 2 Status: Chronic (6) Diabetic peripheral neuropathy associated with type 2 diabetes mellitus Status: Chronic (7) Dyslipidemia Status: Chronic (8) History of adenomatous polyp of colon Status: Chronic (9) History of diabetic ulcer of foot Status: Chronic (10) Hypertension Status: Chronic (11) Peripheral vascular disease Status: Chronic (12) Rheumatoid arthritis Status: Chronic (13) Septic joint of left knee joint Status: Resolved (14) Systolic and diastolic CHF, chronic Permanent Comment: echo 09/2016 - EF 35-40% Status: Chronic Surgical Problems: (1) Status post amputation of toe of left foot Permanent Comment: 3rd toe Status: Chronic (2) Status post amputation of toe of right foot Permanent Comment: right 2nd toe Status: Chronic (3) Status post aortic valve replacement with bioprosthetic valve Status: Chronic (4) Status post cataract extraction Status: Chronic (5) Status post cholecystectomy Status: Chronic (6) Status post coronary artery bypass grafting Permanent Comment: 2007 Status: Chronic Family History non contributory due to patient's advanced age Social History Smoking Status: Former Smoker Alcohol Use: none Housing status: lives with family Immunizations History of Influenza Vaccine: Yes Influenza Vaccine Date: Feb 06, 2016 History of Tetanus Vaccine?: Yes Tetanus Immunization Date: May 22, 2009 History of Pneumococcal: Yes Pneumococcal Date: Feb 06, 2016 Multi-Drug Resistant Organisms History of MDRO: No Allergies Coded Allergies: HERMAN Inhibitors (Verified Allergy, Intermediate, UNKNOWN, 11/05/16) Lisinopril (Verified Adverse Reaction, Unknown, COUGHING, 11/05/16) Home Medications Scheduled Aspirin Enteric Coated (Ecotrin Or Generic), 81 MG PO QAM Cholecalciferol (Vitamin D3), 2,000 UNITS PO QAM Ferrous Sulfate (Kp Ferrous Sulfate), 1 TAB PO BID Folic Acid (Folvite), 1 MG PO QAM Furosemide (Lasix), 20 MG PO QAM Insulin Glargine (Lantus), UNITS SC HS Insulin Human Regular (Novolin R), UNITS SQ TIDM Metoprolol Tartrate (Lopressor) (Lopressor), 25 MG PO BID Multivitamins/Minerals (Mvi With Minerals), 1 TAB PO QAM Potassium Chloride (Micro-K Ext Rel), 10 MEQ PO QAM Scheduled PRN Acetaminophen (Tylenol), 500 MG PO Q4 PRN for Mild Pain Review of Systems ROS per HPI, all other systems reviewed and negative Physical Exam Vital Signs Date Time Temp Pulse Resp B/P (MAP) Pulse Ox O2 Delivery O2 Flow Rate FiO2 11/05/16 14:25 93 17 129/64 96 11/05/16 13:59 93 17 129/64 96 Room Air 11/05/16 13:03 99 17 120/76 98 11/05/16 12:41 Room Air 11/05/16 11:30 70 16 133/81 95 Room Air 11/05/16 09:39 36.3 85 20 113/60 97 Room Air General Appearance: no apparent distress Head: normocephalic, atraumatic Eyes: normal inspection, sclerae normal ENT: hearing grossly normal Neck: supple, no JVD Respiratory/Chest: no respiratory distress, + decreased breath sounds (BL bases ) Cardiovascular: regular rate, rhythm, + pertinent finding (+1-2 edema BLLE, L > R ) Abdomen/GI: normal bowel sounds, non tender, soft Extremities/Musculoskelatal: + calf tenderness (left) Neurologic/Psych: no motor/sensory deficits, alert, normal mood/affect, oriented x 3 Skin: normal color, warm/dry, + pertinent finding (left 3rd toe amputation site wound with red / cream colored wound bed, no signifnicant amount of drainage, erythema extending from the dorsal aspect of the left foot up the [place] ; drained blister noted to the medical aspect of the base of the left great toe - no surrounding erythema or drainge) Diagnostics Laboratory Results Results Past 24 Hours Test 11/05/16 10:30 Range/Units White Blood Count 9.48 4.8-10.8 K/uL Red Blood Count 3.42 4.7-6.1 M/uL Hemoglobin 9.0 14.0-18.0 g/dL Hematocrit 30.3 42-52 % Mean Corpuscular Volume 88.6 80-100 fL Mean Corpuscular Hemoglobin 26.3 25-34 pg Mean Corpuscular Hemoglobin Concent 29.7 32-36 g/dl Platelet Count 182 130-400 K/uL Mean Platelet Volume 10.4 7.4-10.4 fL Neutrophils (%) (Auto) 79.9 % Lymphocytes (%) (Auto) 7.6 % Monocytes (%) (Auto) 11.6 % Eosinophils (%) (Auto) 0.5 % Basophils (%) (Auto) 0.2 % Neutrophils # (Auto) 7.57 1.4-6.5 K/uL Lymphocytes # (Auto) 0.72 1.2-3.4 K/uL Monocytes # (Auto) 1.10 0.11-0.59 K/uL Eosinophils # (Auto) 0.05 0-0.5 K/uL Basophils # (Auto) 0.02 0-0.2 K/uL RDW Standard Deviation 58.5 36.4-46.3 fL RDW Coefficient of Variation 17.9 11.5-14.5 % Immature Granulocyte % (Auto) 0.2 % Immature Granulocyte # (Auto) 0.02 0.00-0.02 K/uL Erythrocyte Sedimentation Rate 68 0-14 mm/hr Sodium Level 136 136-145 mmol/L Potassium Level 3.9 3.5-5.1 mmol/L Chloride Level 103 98-107 mmol/L Carbon Dioxide Level 29 21-32 mmol/L Anion Gap 4.0 3-11 mmol/L Blood Urea Nitrogen 25 7-18 mg/dl Creatinine 1.40 0.60-1.40 mg/dl Est Creatinine Clear Calc Drug Dose 37.7 ml/min Estimated GFR () 51.6 Estimated GFR (Non- 44.5 BUN/Creatinine Ratio 18.1 10-20 Random Glucose 136 70-99 mg/dl Calcium Level 8.6 8.5-10.1 mg/dl C-Reactive Protein 7.09 0-0.29 mg/dl Microbiology Results 11/05/16 Blood Culture, Received Pending 11/05/16 Blood Culture, Received Pending 11/05/16 Fungal Smear - Final, Resulted 11/05/16 Fungal Culture, Resulted Pending 11/05/16 Gram Stain - Final, Resulted 11/05/16 Wound Culture, Resulted Pending Diagnostic Radiology LEFT TIBIA FIBULA XR IMPRESSION: 1. Osteopenia 2. No acute fractures 3. No evidence of osteomyelitis LEFT FOOT XR IMPRESSION: 1. Apparent prior amputation of the bulk of the phalanges of the third toe. 2. Residual proximal phalanx suggests developing erosive change and underlying osteomyelitis. 3. Severe degenerative change of all remaining joints as discussed above. 4. Potential developing neuropathic type joint LEFT ANKLE XR IMPRESSION: 1. Osteopenia 2. No acute fractures 3. No conventional radiographic evidence of acute osteomyelitis CXR IMPRESSION: 1. Persistent interstitial thickening. This could be on a cardiogenic basis or related to inflammatory or infectious interstitial lung disease. 2. Small left pleural effusion Impression Assessment and Plan LEFT 3RD TOE AMPUTATION SITE INFECTION / OSTEOMYELITIS - admit to med/surg - patient presenting with increased redness and drainage from left 3rd toe amputation site that was done on 10/19 for gangrene infection; patient has had two prior complicated admissions as outlined in HPI - completed 4 weeks of IV Daptomycin therapy on 10/03 for left knee septic arthritis for which culture grew micrococcus species and also the left 3rd toe gangrene infection; yesterday completed 10 day course of Augmentin for amputation site infection - no signs of sepsis - blood and wound cultures obtained - s/p Vanco, Cefepime, and Flagyl in ED; will continue with IV Vanco and Zosyn - ID and Wound Care (Dr. Mckeon) consults placed - due to increased edema and pain to the LLE will obtain doppler - however also noted that patient's Coumadin was stopped due to epistaxis and unsteady gait; if imaging positive for DVT, would need to consider IVC filter MILD ACUTE ON CHRONIC SYSTOLIC / DIASTOLIC CHF - patient reports shortness of breath - echo 09/2016 - EF 35-40% - CXR shows small left pleural effusion - will give Lasix 20mg IV today and resume home PO dose tomorrow BLACK TONGUE - likely due to recent antibiotic use - encourage good oral hygiene DM - hgb a1c 6.5 09/2016 - patient has noticed lower blood sugars at home so has been self decreasing his Lantus and Novolin - glucose 136 on admission labs - will start with Lantus 5 units HS + SSI CAD - stable, no reports of chest pain - continue ASA and beta norma ATRIAL FIBRILLATION - rate controlled on beta norma, will continue - Coumadin stopped due to epistaxis and unsteady gait CKD STAGE III - baseline creat runs in the mid 1's - creat noted to be 1.4 today - continue to monitor, avoid nephrotoxic agents when able ANEMIA - chronic, hgb at baseline - likely anemia of chronic disease - no signs of bleeding DVT PROPHYLAXIS - SQ Heparin CODE STATUS - Patient is a DNR as per my discussion with him and his daughter who was at the bedside. DISPO - In my clinical judgment this beneficiary meets acute admission criteria, established by [facility], that includes being hospitalized through two midnights. Agree with above H and P. Briefly 86M with recent hx of left 3rd toe amputation present with redness and drainage from the area. Afebrile. complains of metallic taste. No chest pain or sob. Had couple of admissions for PAD with left foot gangrene and left knee septic arthritis and patient underwent endarterectomy of the left leg and also left knee arthroscopic irrigation and debridement. Currently resting comfortably and hemodynamically stable. p/e Ge not in distress Cvs S 1 qnd s2 heard no murmurs Rs cta b/l no added sounds Abd benign Box Spinner non focal Ext Left foot in dressing a/p LEFT 3RD TOE AMPUTATION SITE INFECTION / OSTEOMYELITIS on iv Zosyn and iv vanco ID consulted Wound care consulted [place] and iss will monitor Advanced Directives Existing Living Will: Yes Existing Power of Corporate Librarian: Yes VTE Prophylaxis VTE Risk Assessment Done? Y/N: Yes Risk Level: Moderate
--- NOTE | 2016-11-05 15:40 | Medical Consult ---
Consultation Date of Consultation: Nov 05, 2016. Attending Physician: Gallito Nesbitt MD Reason for Consultation: Osteomyelitis History of Present Illness 78-year-old male well known to me from previous hospitalizations and outpatient follow-up, with history of severe peripheral arterial disease, gangrene of his left 3rd toe status post amputation earlier this month, as well as previous septic arthritis involving his left knee with micrococcus. He had been following vascular surgery after his amputation, and was recently noted to have increase in redness and swelling of his foot. He was started on Augmentin, but was seen again with worsening infection, no specially brought by family to the emergency department where is found to have evidence of cellulitis the foot and x-ray of the foot, read by me, shows possible residual osteomyelitis at the surgical site. He has had low-grade fever, denies shortness of breath or chest pain. He has been started empirically on vancomycin and Zosyn. Past Medical/Surgical History Medical Problems: (1) Acute on chronic renal failure Status: Acute (2) Anemia Status: Acute (3) Cellulitis of left leg Status: Acute (4) CHF (congestive heart failure) Status: Acute (5) Hypoxia Status: Acute (6) Left-sided epistaxis Status: Acute (7) Pneumonia Status: Acute (8) Sepsis Status: Acute (9) Urinary retention Status: Acute Medical Problems: (1) Aortic stenosis (2) Atrial fibrillation (3) Carotid arterial disease (4) CKD (chronic kidney disease), stage III (5) Diabetes mellitus, type 2 (6) Diabetic peripheral neuropathy associated with type 2 diabetes mellitus (7) Dyslipidemia (8) History of adenomatous polyp of colon (9) History of diabetic ulcer of foot (10) Hypertension (11) Peripheral vascular disease (12) Rheumatoid arthritis (13) Septic joint of left knee joint (14) Systolic and diastolic CHF, chronic Surgical Problems: (1) Status post amputation of toe of left foot (2) Status post amputation of toe of right foot (3) Status post aortic valve replacement with bioprosthetic valve (4) Status post cataract extraction (5) Status post cholecystectomy (6) Status post coronary artery bypass grafting Family History Cancer BROTHER SISTER Coronary artery disease FATHER Kidney disease BROTHER Social History Smoking Status: Former Smoker Drug Use: none Marital Status: Occupation Status: retired Allergies Coded Allergies: HERMAN Inhibitors (Verified Allergy, Intermediate, UNKNOWN, 8/18/17) Lisinopril (Verified Adverse Reaction, Unknown, COUGHING, 11/05/16) Current Inpatient Medications Current Inpatient Medications Medications (Trade) Dose Ordered Sig/Rosemarie Route Start Time Stop Time Status Last Admin Dose Admin Sodium Chloride 1,000 ml @ 125 mls/hr Q8H STAT IV 11/05/16 11:26 11/05/16 19:25 11/05/16 11:39 125 MLS/HR Acetaminophen (Tylenol Tab) 650 mg Q4H PRN PO 11/05/16 13:00 12/05/16 12:59 Ondansetron HCl (Zofran Inj) 4 mg Q6H PRN IV 11/05/16 13:00 12/05/16 12:59 Heparin Sodium (Porcine) (Heparin Sq 5000 Unit/0.5ml) 5,000 unit Q12H SQ 11/05/16 13:00 12/05/16 12:59 UNV Aspirin (Ecotrin Tab) 81 mg QAM PO 11/06/16 09:00 12/06/16 08:59 Folic Acid (Folvite Tab) 1 mg QAM PO 11/06/16 09:00 12/06/16 08:59 Furosemide (Lasix Tab) 20 mg QAM PO 11/06/16 09:00 12/06/16 08:59 Metoprolol Tartrate (Lopressor Tab) 25 mg BID PO 11/05/16 21:00 12/05/16 20:59 Multivitamins/ Minerals (Multivitamin W/ Minerals Tab) 1 tab QAM PO 11/06/16 09:00 12/06/16 08:59 Potassium Chloride (Klor-Con M10) 10 meq QAM PO 11/06/16 09:00 12/06/16 08:59 Cholecalciferol (Vitamin D Tab) 2,000 inter.unit QAM PO 11/06/16 09:00 12/06/16 08:59 Ferrous Sulfate (Feosol Tab) 325 mg BID PO 11/05/16 21:00 12/05/16 20:59 Insulin Aspart (novoLOG ASPART) SLIDING SCALE If C... ACHS SC 11/05/16 16:00 12/05/16 15:59 Glucose (Glucose 40% Gel) 15-30 GRAMS 15 GRAMS... UD PRN PO 11/05/16 13:15 12/05/16 13:14 Glucose (Glucose Chew Tab) 4-8 Tablets 4 Tabl... UD PRN PO 11/05/16 13:15 12/05/16 13:14 Dextrose (Dextrose 50% 50ML Syringe) 25-50ML OF 50% DW IV FOR... UD PRN IV 11/05/16 13:15 12/05/16 13:14 Glucagon (Glucagon Inj) 1 mg UD PRN SQ 11/05/16 13:15 12/05/16 13:14 Enteral Nutritional Formula (Boost) 1 can TIDM PO 11/05/16 18:00 12/05/16 17:59 Insulin Glargine (Lantus Solostar Pen) 5 units HS SC 11/05/16 21:00 12/05/16 20:59 Furosemide 20 mg/ Syringe 2 ml @ 4 mls/min TODAY@1615 ONCE IV 11/05/16 16:15 11/05/16 16:16 Vancomycin HCl 1000 mg/Sodium Chloride 270 ml @ 125 mls/hr Q18H IV 11/06/16 04:00 12/18/16 03:59 Piperacillin Sod/ Tazobactam Sod 3.375 gm/Dextrose 115 ml @ 28.75 mls/ hr Q8H IV 11/05/16 18:00 12/17/16 17:59 Vancomycin HCl (Consult) 1 ea UD PRN N/A 11/05/16 15:30 12/05/16 15:29 Piperacillin Sod/ Tazobactam Sod (Consult) 1 ea UD PRN N/A 11/05/16 15:30 12/05/16 15:29 Review of Systems Constitutional: + fever, + weakness Eyes: No problem reported ENT: + problem reported (bad taste) Respiratory: + cough Cardiovascular: No problem reported Abdomen: + problem reported Musculoskeletal: + swelling Genitourinary - Male: No problem reported Neurologic: No problem reported Psychiatric: No problem reported Endocrine: No problem reported Hematologic / Lymphatic: No problem reported Integumentary: + new/changing skin lesions Allergic / Immunologic: No problem reported Physical Exam Date Time Temp Pulse Resp B/P (MAP) Pulse Ox O2 Delivery O2 Flow Rate FiO2 11/05/16 14:59 36.4 92 18 127/64 (85) 95 8/18/17 14:25 93 17 129/64 96 11/05/16 13:59 93 17 129/64 96 Room Air 11/05/16 13:03 99 17 120/76 98 11/05/16 12:41 Room Air 11/05/16 11:30 70 16 133/81 95 Room Air 11/05/16 09:39 36.3 85 20 113/60 97 Room Air General Appearance: WD/WN, no apparent distress Head: normocephalic, atraumatic Eyes: normal inspection, sclerae normal ENT: normal ENT inspection, pharynx normal Neck: supple, no adenopathy, thyroid normal, trachea midline Respiratory/Chest: chest non-tender, lungs clear, normal breath sounds, no respiratory distress Cardiovascular: regular rate, rhythm, no gallop, no murmur Abdomen/GI: normal bowel sounds, non tender, soft, no organomegaly Back: normal inspection, no CVA tenderness Extremities/Musculoskelatal: no calf tenderness, + slow capillary refill Neurologic/Psych: alert, oriented x 3 Skin: normal color, no rash, + pertinent finding (Left foot and ankle erythematous and slightly swollen) Lymphatic: no adenopathy Laboratory Results Date/Time Source Procedure Growth Status 11/05/16 10:32 Blood Blood Culture Pending Received 11/05/16 10:30 Blood Blood Culture Pending Received 11/05/16 12:25 Mouth Fungal Smear - Final Resulted 11/05/16 12:25 Mouth Fungal Culture Pending Resulted 11/05/16 10:40 Drainage - Surface Toe Right 3 Gram Stain - Final Resulted 11/05/16 10:40 Drainage - Surface Toe Right 3 Wound Culture Pending Resulted Last 24 Hours Test 11/05/16 10:30 11/05/16 15:32 White Blood Count 9.48 K/uL Red Blood Count 3.42 M/uL Hemoglobin 9.0 g/dL Hematocrit 30.3 % Mean Corpuscular Volume 88.6 fL Mean Corpuscular Hemoglobin 26.3 pg Mean Corpuscular Hemoglobin Concent 29.7 g/dl Platelet Count 182 K/uL Mean Platelet Volume 10.4 fL Neutrophils (%) (Auto) 79.9 % Lymphocytes (%) (Auto) 7.6 % Monocytes (%) (Auto) 11.6 % Eosinophils (%) (Auto) 0.5 % Basophils (%) (Auto) 0.2 % Neutrophils # (Auto) 7.57 K/uL Lymphocytes # (Auto) 0.72 K/uL Monocytes # (Auto) 1.10 K/uL Eosinophils # (Auto) 0.05 K/uL Basophils # (Auto) 0.02 K/uL RDW Standard Deviation 58.5 fL RDW Coefficient of Variation 17.9 % Immature Granulocyte % (Auto) 0.2 % Immature Granulocyte # (Auto) 0.02 K/uL Erythrocyte Sedimentation Rate 68 mm/hr Sodium Level 136 mmol/L Potassium Level 3.9 mmol/L Chloride Level 103 mmol/L Carbon Dioxide Level 29 mmol/L Anion Gap 4.0 mmol/L Blood Urea Nitrogen 25 mg/dl Creatinine 1.40 mg/dl Est Creatinine Clear Calc Drug Dose 37.7 ml/min Estimated GFR () 51.6 Estimated GFR (Non- 44.5 BUN/Creatinine Ratio 18.1 Random Glucose 136 mg/dl Calcium Level 8.6 mg/dl C-Reactive Protein 7.09 mg/dl Patient Name: MIGUEL GAFFNEY Unit Number: [id number] Dictated: 11/05/16 110 Transcribed: 11/05/16 1108 MS Printed Date/Time: [~ rep prt dt]/[~ rep prt tm] [~ rep ct labl] - [~ rep ct ivnm] [facility] [place] [address] Dictated: 11/05/16 110 Transcribed: 11/05/16 1108 MS Printed Date/Time: [~ rep prt dt]/[~ rep prt tm] [~ rep ct labl] - [~ rep ct ivnm] LEFT FOOT MIN 3 VIEWS ROUTINE CLINICAL HISTORY: swelling warmth., r/o osseous involvement pain. Edema. COMPARISON: None. DISCUSSION: Severe degenerative change throughout all major osseous structures. Prior amputation of the bulk of the phalanges of the third toe. Findings consistent with chronic dislocation of the second metatarsal phalangeal joint. Severe deterioration first metatarsophalangeal joint. Bony mineralization is uniformly diminished throughout. There is a pars planus deformity of the calcaneus. There may be a potentially developing neuropathic joint. The possibility of a lytic process relating to a residual component of the proximal phalanx of the third toe is considered.. There is no evidence for soft tissue swelling. IMPRESSION: 1. Apparent prior amputation of the bulk of the phalanges of the third toe. 2. Residual proximal phalanx suggests developing erosive change and underlying osteomyelitis. 3. Severe degenerative change of all remaining joints as discussed above. 4. Potential developing neuropathic type joint The above report was generated using voice recognition software. It may contain grammatical, syntax or spelling errors. Electronically signed by: Morteza King M.D. 11/05/2016 11:10 AM Dictated Date/Time: 11/05/2016 11:08 AM The status of this report is Signed. Draft = Not yet reviewed or approved by Radiologist. Signed = Reviewed and approved by Radiologist. <AttendingPhy></AttendingPhy> <FamilyPhy>Seng Narvaez III, M.D.</FamilyPhy> < PrimaryPhy>Seng Narvaez III, M.D.</PrimaryPhy> <UnitNumber>[id number]</ UnitNumber> <VisitNumber>[id number]</VisitNumber> <PatientName>MIGUEL GAFFNEY JR</PatientName> <DateOfBirth>1930</DateOfBirth> <Location>[facility] </Location> <ServiceDate>11/05/16</ServiceDate> <MNE>ESINDI</MNE> <OrderingPhy> Lb Huggins M.D.</OrderingPhy> <OrderingPhyMNE>f rep ord dr varela</ OrderingPhyMNE> <DictatingPhyMNE>f rep dict dr varela</DictatingPhyMNE> <CCListMNE> f rep ct avery</CCListMNE> <AdmittingPhyMNE>f pt admit dr varela</AdmittingPhyMNE> < AttendingPhyMNE>f pt attend dr varela</AttendingPhyMNE> <ConsultingPhyMNE>f pt consult dr varela</ConsultingPhyMNE> <FamilyPhyMNE>f pt fam dr varela</FamilyPhyMNE> <OtherPhyMNE>f pt other dr varela</OtherPhyMNE> < PrimaryPhyMNE>f pt prim care dr varela</PrimaryPhyMNE> <ReferringPhyMNE>f pt referring dr varela</ReferringPhyMNE> Assessment & Plan 78-year-old male with severe peripheral arterial disease status post amputation of left 3rd toe for gangrene, now with cellulitis involving the left foot and ankle, as well as possible osteomyelitis in the residual bone the 3rd toe. Patient to be treated with vancomycin and Zosyn pending blood and wound cultures. I will adjust once these are available. Will follow.
[2016-11-05 16:07] LABS: INR 1.3 (0.9-1.1); PROTHROMBIN TIME (PATIENT) 13.6 SECONDS (9.0-12.0)
[2016-11-05] MEDS ORDERED: FUROSEMIDE INJ 20 MG in SYRINGE 0 ML IV ONE (16:15)
[2016-11-05] MEDS: BOOST GLUCOSE CONTROL PO SCH (17:00)
[2016-11-05] MEDS: PIPERACILL/TAZOBAC IV 3.375 GM in DEXTROSE 5% 100ML IV SCH (17:06)
[2016-11-05] MEDS: INSULIN ASPART 100 UNITS/ML 3 ML PEN SC SCH ×2 (17:11→21:31)
[2016-11-05] MEDS ORDERED: BOOST VANILLA PO SCH ×2 (18:00)
--- NOTE | 2016-11-05 19:01 | DIAGNOSTIC IMAGING REPORT ---
ULTRASOUND BILATERAL LOWER EXTREMITY VENOUS CLINICAL HISTORY: Leg pain and edema. COMPARISON STUDY: Right lower extremity venous ultrasound dated 09/02/2016. TECHNIQUE: Real-time, grayscale, and color Doppler sonography of the deep veins of the right and left lower extremity was performed from the inguinal crease to the calf. Compression and augmentation were utilized. FINDINGS: There is no sonographic evidence of deep venous thrombosis identified in the right or left lower extremity. The common femoral, superficial femoral, and popliteal veins are patent and normally compressible bilaterally. The greater saphenous vein and the profunda femoris vein at the junction with the common femoral vein are clear in both legs. The visualized calf veins are patent bilaterally. Soft tissue edema is present in the lower extremities. IMPRESSION: There is no sonographic evidence of deep venous thrombosis identified in the right or left lower extremity. Electronically signed by: Julian Hernández M.D. 11/05/2016 7:00 PM Dictated Date/Time: 11/05/2016 6:59 PM
[2016-11-05] MEDS: HEPARIN SOD 5000 UNIT/0.5 ML CARP SQ SCH (21:37)
[2016-11-05] MEDS: INSULIN GLARGINE SOLOSTAR 100 UNITS/ML 3 ML PEN SC SCH (21:38)
[2016-11-05] MEDS: METOPROLOL TARTRATE 25 MG TAB PO SCH (21:38)
[2016-11-05] MEDS: FERROUS SULFATE 325 MG TAB PO SCH (21:39)
[2016-11-05 21:43] VITALS: BP 106/62; PULSE 85
[2016-11-06] VITALS: O2SAT 96
[2016-11-06 00:07] VITALS: BP 78/48; PULSE 84; TEMP 36.5; O2SAT 91
[2016-11-06] MEDS: PIPERACILL/TAZOBAC IV 3.375 GM in DEXTROSE 5% 100ML IV SCH ×3 (01:50→18:32)
[2016-11-06 01:54] VITALS: BP 121/79; PULSE 83
[2016-11-06] MEDS: VANCOMYCIN INJ 1,000 MG in SODIUM CHLORIDE 0.9% 250ML 250 ML IV SCH ×2 (03:42→20:58)
[2016-11-06 07:30] VITALS: BP 118/61; PULSE 81; TEMP 36.5; O2SAT 95
[2016-11-06 07:32] LABS: HEMATOCRIT 26.9 % (42-52); MEAN CELL VOLUME 86.8 fL (80-100); MEAN CORPUSCULAR HEMOGLOBIN 27.4 pg (25-34); MEAN CORPUSCULAR HGB CONC 31.6 g/dl (32-36); MEAN PLATELET VOLUME 9.9 fL (7.4-10.4); PLATELET COUNT 160 K/uL (130-400); WHITE BLOOD COUNT 9.41 K/uL (4.8-10.8)
[2016-11-06] MEDS: BOOST GLUCOSE CONTROL PO SCH ×3 (08:00→17:00)
[2016-11-06 08:06] LABS: BUN/CREATININE RATIO 17.2 (10-20); CALCIUM 8.3 mg/dl (8.5-10.1); CREATININE 1.4 mg/dl (0.60-1.40); POTASSIUM 3.3 mmol/L (3.5-5.1)
[2016-11-06] MEDS: FERROUS SULFATE 325 MG TAB PO SCH ×2 (08:42→20:59)
[2016-11-06] MEDS: INSULIN ASPART 100 UNITS/ML 3 ML PEN SC SCH ×4 (08:42→21:04)
[2016-11-06] MEDS: ASPIRIN 81 MG ECTAB PO SCH (08:43)
[2016-11-06] MEDS: CEROVITE ADV FORMULA TAB PO SCH (08:43)
[2016-11-06] MEDS: METOPROLOL TARTRATE 25 MG TAB PO SCH ×2 (08:43→20:59)
[2016-11-06] MEDS: HEPARIN SOD 5000 UNIT/0.5 ML CARP SQ SCH ×2 (08:44→21:05)
[2016-11-06] MEDS: POTASSIUM CHLORIDE 10 MEQ TABCR PO SCH (08:44)
[2016-11-06] MEDS: FUROSEMIDE 20 MG TAB PO SCH (08:44)
[2016-11-06] MEDS: CHOLECALCIFEROL 1000 INTER.UNIT TAB PO SCH (08:44)
[2016-11-06 15:34] VITALS: BP 125/64; PULSE 83; TEMP 36.6; O2SAT 95
[2016-11-06] MEDS: NYSTATIN SUSP 500,000 U/5 ML UDC PO SCH ×2 (17:14→20:59)
--- NOTE | 2016-11-06 18:38 | Progress Note ---
Internal Med Progress Note Date of Service: Nov 06, 2016. Provider Documentation: SUBJECTIVE: resting comfortably afebrile no pain could not much because of metallic taste no nausea OBJECTIVE: Vital Signs-as noted below Exam: General-alert and awake. Not in distress ENT-normal hearing Tounge: black discoloration Neck-no neck masses Lungs-cta b/l no wheezing or crackles Heart-s1 and s2 heard regular rhythm no murmurs Abdomen-soft bowel sounds present non tender no distension Extremities-left foot mild erythematous extending to mid [place]. Left 3rd toe amputation site mild drainage Neuro-alert and oriented moves extremities Lab data as noted below. ASSESSMENT & PLAN: LEFT 3RD TOE AMPUTATION SITE INFECTION / OSTEOMYELITIS Increased redness and drainage from left 3rd toe amputation site that was done on 10/19 for gangrene infection Had 4 weeks of IV Daptomycin therapy on 10/03 for left knee septic arthritis for which culture grew micrococcus species and also the left 3rd toe gangrene infection; yesterday completed 10 day course of Augmentin for amputation site infection No sepsis No DVT started on iv vanco and Zosyn ID and wound care() consulted f/u cx duration of abx as per ID MILD ACUTE ON CHRONIC SYSTOLIC / DIASTOLIC CHF Patient reported some shortness of breath echo 09/2016 - EF 35-40% CXR shows small left pleural effusion Got Lasix 20mg IV today and to resume home PO dose BLACK TONGUE likely due to recent antibiotic use encourage good oral hygiene cx growing yeast nystatin swish and swallow DM hgb a1c 6.5 09/2016 As per h and p: patient noticed lower blood sugars at home so has been self decreasing his Lantus and Novolin started with Lantus 5 units HS + SSI Will monitor CAD Stable, on continue ASA and beta norma ATRIAL FIBRILLATION Rate controlled on beta norma, will continue Coumadin stopped due to epistaxis and unsteady gait CKD STAGE III baseline creat runs in the mid 1's will f/u labs. ANEMIA likely anemia of chronic disease at baseline will monitor DVT PROPHYLAXIS SQ Heparin CODE STATUS DNR DISPOSITION to be determined Vital Signs: Date Time Temp Pulse Resp B/P (MAP) Pulse Ox O2 Delivery O2 Flow Rate FiO2 11/06/16 15:55 Room Air 11/06/16 15:34 36.6 83 18 125/64 (84) 95 Room Air 11/06/16 07:45 Room Air 11/06/16 07:30 36.5 81 18 118/61 (80) 95 Room Air 11/06/16 01:54 83 121/79 (93) 11/06/16 00:07 36.5 84 18 78/48 (58) 91 Room Air 11/06/16 00:00 96 Room Air 11/05/16 21:43 85 106/62 (77) Lab Results: Results Past 24 Hours Test 11/05/16 20:06 11/06/16 07:02 11/06/16 07:09 11/06/16 11:24 Range/Units Bedside Glucose 175 141 187 70-99 mg/dl White Blood Count 9.41 4.8-10.8 K/uL Red Blood Count 3.10 4.7-6.1 M/uL Hemoglobin 8.5 14.0-18.0 g/dL Hematocrit 26.9 42-52 % Mean Corpuscular Volume 86.8 80-100 fL Mean Corpuscular Hemoglobin 27.4 25-34 pg Mean Corpuscular Hemoglobin Concent 31.6 32-36 g/dl RDW Standard Deviation 56.9 36.4-46.3 fL RDW Coefficient of Variation 17.9 11.5-14.5 % Platelet Count 160 130-400 K/uL Mean Platelet Volume 9.9 7.4-10.4 fL Sodium Level 137 136-145 mmol/L Potassium Level 3.3 3.5-5.1 mmol/L Chloride Level 103 98-107 mmol/L Carbon Dioxide Level 28 21-32 mmol/L Anion Gap 6.0 3-11 mmol/L Blood Urea Nitrogen 24 7-18 mg/dl Creatinine 1.40 0.60-1.40 mg/dl Est Creatinine Clear Calc Drug Dose 37.7 ml/min Estimated GFR () 51.6 Estimated GFR (Non- 44.5 BUN/Creatinine Ratio 17.2 10-20 Random Glucose 136 70-99 mg/dl Calcium Level 8.3 8.5-10.1 mg/dl Test 11/06/16 16:11 Range/Units Bedside Glucose 167 70-99 mg/dl
[2016-11-06] MEDS: INSULIN GLARGINE SOLOSTAR 100 UNITS/ML 3 ML PEN SC SCH (21:05)
[2016-11-07] VITALS: BP 118/66; PULSE 62; TEMP 36.9; O2SAT 92
[2016-11-07] MEDS: PIPERACILL/TAZOBAC IV 3.375 GM in DEXTROSE 5% 100ML IV SCH ×3 (02:15→18:05)
[2016-11-07 06:16] LABS: CREATININE 1.5 mg/dl (0.60-1.40)
[2016-11-07] MEDS: INSULIN ASPART 100 UNITS/ML 3 ML PEN SC SCH ×4 (06:30→21:04)
[2016-11-07 07:34] VITALS: BP 117/71; PULSE 87; TEMP 36.4; O2SAT 98
[2016-11-07] MEDS: FUROSEMIDE 20 MG TAB PO SCH (07:47)
[2016-11-07] MEDS: CEROVITE ADV FORMULA TAB PO SCH (07:48)
[2016-11-07] MEDS: METOPROLOL TARTRATE 25 MG TAB PO SCH ×2 (07:48→21:09)
[2016-11-07] MEDS: CHOLECALCIFEROL 1000 INTER.UNIT TAB PO SCH (07:49)
[2016-11-07] MEDS: POTASSIUM CHLORIDE 10 MEQ TABCR PO SCH (07:49)
[2016-11-07] MEDS: NYSTATIN SUSP 500,000 U/5 ML UDC PO SCH ×4 (07:50→21:03)
[2016-11-07] MEDS: FERROUS SULFATE 325 MG TAB PO SCH ×2 (07:50→21:07)
[2016-11-07] MEDS: ASPIRIN 81 MG ECTAB PO SCH (07:50)
[2016-11-07] MEDS: BOOST GLUCOSE CONTROL PO SCH ×3 (07:54→16:58)
[2016-11-07] MEDS: HEPARIN SOD 5000 UNIT/0.5 ML CARP SQ SCH ×2 (08:05→21:05)
[2016-11-07 15:06] VITALS: BP 105/65; PULSE 85; TEMP 36.7; O2SAT 96
[2016-11-07] MEDS ORDERED: VANCOMYCIN TROUGH SCH (15:30)
--- NOTE | 2016-11-07 16:19 | Pharmacy Progress Note ---
Pharmacy Antibiotic Prog Note Date of Service Nov 07, 2016. Subjective The patient is currently receiving vancomycin 1000 mg IV every 18 hours. The patient is currently on day # 3 of vancomycin IV therapy. Objective Height (Feet): 5 Height (Inches): 10.00 Weight (Kilograms): 80.800 Lab Results (24hrs): Test 11/07/16 05:17 11/07/16 07:26 11/07/16 11:06 Creatinine 1.50 mg/dl (0.60-1.40) Est Creatinine Clear Calc Drug Dose 35.1 ml/min Estimated GFR () 47.5 Estimated GFR (Non- 41.0 Bedside Glucose 152 mg/dl (70-99) 153 mg/dl (70-99) Assessment & Plan Assessment * 86 yo M with residual toe osteomyelitis / foot cellulitis following amputation of toe for gangrene on 10/19/16. * ID following * Drainage/toe cultures with E. coli and probable Pseudomonas * Currently on Zosyn, vancomycin which is appropriate for now. OK to continue vancomycin for now despite cultures without Gram positive growth as osteomyelitis tends to involve multiple microbes * SCr stable and at/near baseline * Goal vancomycin trough 15-20 mcg/mL * Trough of 15.5 mcg/mL is therapeutic and was drawn at/near steady state * Significant further accumulation 2nd BMI is not likely - OK to extend time of re-check trough to 72 hours (assuming stable renal function) Plan * Continue vancomycin 1000 mg IV q18h * Repeat trough 11/10 @ 1530 (or sooner if renal function changes significantly) Pharmacy will continue to follow and will adjust dose/frequency as necessary. Thank you
[2016-11-07] MEDS: VANCOMYCIN INJ 1,000 MG in SODIUM CHLORIDE 0.9% 250ML 250 ML IV SCH (16:37)
--- NOTE | 2016-11-07 16:38 | Progress Note ---
Internal Med Progress Note Date of Service: Nov 07, 2016. Provider Documentation: SUBJECTIVE: resting comfortably metallic taste somewhat improved and was able to eat better denies pain son is in the room patient and son ok for picc line afebrile OBJECTIVE: Vital Signs-as noted below Exam: General-alert and awake. Not in distress ENT-normal hearing Tounge: black discoloration Neck-no neck masses Lungs-cta b/l no wheezing or crackles Heart-s1 and s2 heard regular rhythm no murmurs Abdomen-soft bowel sounds present non tender no distension Extremities-left foot mild erythematous extending to mid del acstillo. Left 3rd toe amputation site mild drainage Neuro-alert and oriented moves extremities Lab data as noted below. ASSESSMENT & PLAN: 86YM PRESENTS WITH REDNESS AND DRAINAGE AT LEFT 3RD TOE AMPUTATION SITE LEFT 3RD TOE AMPUTATION SITE INFECTION / OSTEOMYELITIS Increased redness and drainage from left 3rd toe amputation site that was done on 10/19 for gangrene infection Had 4 weeks of IV Daptomycin therapy on 10/03 for left knee septic arthritis for which culture grew micrococcus species and also the left 3rd toe gangrene infection; yesterday completed 10 day course of Augmentin for amputation site infection No sepsis No DVT started on iv vanco and Zosyn#2 ID and wound care() consulted f/u cx duration of abx as per ID Await input plan for picc line- consent obtained. MILD ACUTE ON CHRONIC SYSTOLIC / DIASTOLIC CHF Patient reported some shortness of breath echo 09/2016 - EF 35-40% CXR shows small left pleural effusion Got Lasix 20mg IV today and to resume home PO dose stable BLACK TONGUE likely due to recent antibiotic use encourage good oral hygiene cx growing yeast started on nystatin swish and swallow metallic taste improving as per patient DM hgb a1c 6.5 09/2016 As per h and p: patient noticed lower blood sugars at home so has been self decreasing his Lantus and Novolin started with Lantus 5 units HS + SSI 167/229/152/153 Will monitor CAD Stable continue on ASA and beta norma ATRIAL FIBRILLATION Rate controlled on beta norma on Lopressor 25mg bid Coumadin stopped due to epistaxis and unsteady gait CKD STAGE III baseline creat runs in the mid 1's cr 1.5 today will f/u labs. ANEMIA likely anemia of chronic disease hb 8.5 today will check stool for Hemoccult will monitor DVT PROPHYLAXIS SQ Heparin CODE STATUS DNR DISPOSITION pt/ot Needs [facility] iv abx social service for d/c planning Son likes to take patient home followup with PCP, ID and Wound care. Vital Signs: Date Time Temp Pulse Resp B/P (MAP) Pulse Ox O2 Delivery O2 Flow Rate FiO2 11/07/16 16:00 Room Air 11/07/16 08:00 Room Air 11/07/16 07:34 36.4 87 20 117/71 (86) 98 11/07/16 00:00 Room Air 11/07/16 00:00 36.9 62 18 118/66 (83) 92 Room Air Lab Results: Results Past 24 Hours Test 11/07/16 05:17 11/07/16 07:26 11/07/16 11:06 11/07/16 15:32 Range/Units Creatinine 1.50 0.60-1.40 mg/dl Est Creatinine Clear Calc Drug Dose 35.1 ml/min Estimated GFR () 47.5 Estimated GFR (Non- 41.0 Bedside Glucose 152 153 70-99 mg/dl Vancomycin Level Trough 15.5 SEE COMMENT mcg/ml Test 11/07/16 16:35 11/07/16 20:30 Range/Units Bedside Glucose 261 236 70-99 mg/dl
--- NOTE | 2016-11-07 17:08 | DIAGNOSTIC IMAGING REPORT ---
SINGLE VIEW CHEST CLINICAL HISTORY: PICC placement. FINDINGS: An AP, portable, upright chest radiograph is compared to study dated 11/05/[address] dated 02/06/2008. The examination is degraded by portable technique and patient rotation. A right PICC line has been placed. The tip of the catheter projects over the cavoatrial junction. The patient is status post midline sternotomy and cardiac valve surgery. The heart is enlarged and there is atherosclerotic calcification of the thoracic aorta. There is pulmonary vascular congestion and interstitial edema. Small pleural effusions are seen and there are bibasilar opacities. No pneumothorax is seen. The skeletal structures are osteopenic. The bony thorax is grossly intact. IMPRESSION: 1. A right PICC line has been placed. The tip of the catheter projects over the cavoatrial junction. 2. Cardiomegaly with evidence of congestive failure and interstitial edema. 3. Small pleural effusions with bibasilar airspace opacities the likely represent atelectasis. Electronically signed by: Julian Hernández M.D. 11/07/2016 5:06 PM Dictated Date/Time: 11/07/2016 5:05 PM
[2016-11-07] MEDS: INSULIN GLARGINE SOLOSTAR 100 UNITS/ML 3 ML PEN SC SCH (21:05)
[2016-11-08] VITALS: BP 117/66; PULSE 76; TEMP 36.6; O2SAT 95
[2016-11-08] MEDS: PIPERACILL/TAZOBAC IV 3.375 GM in DEXTROSE 5% 100ML IV SCH ×3 (03:07→17:59)
[2016-11-08 05:45] LABS: HEMATOCRIT 27.9 % (42-52); MEAN CELL VOLUME 86.9 fL (80-100); MEAN CORPUSCULAR HEMOGLOBIN 26.8 pg (25-34); MEAN CORPUSCULAR HGB CONC 30.8 g/dl (32-36); MEAN PLATELET VOLUME 10.1 fL (7.4-10.4); PLATELET COUNT 180 K/uL (130-400); RED BLOOD COUNT 3.21 M/uL (4.7-6.1); WHITE BLOOD COUNT 8.03 K/uL (4.8-10.8)
[2016-11-08 06:16] LABS: CREATININE 1.5 mg/dl (0.60-1.40)
[2016-11-08 07:30] VITALS: BP 136/74; PULSE 87; TEMP 36.4; O2SAT 100
[2016-11-08] MEDS: BOOST GLUCOSE CONTROL PO SCH ×3 (07:47→16:50)
[2016-11-08] MEDS: NYSTATIN SUSP 500,000 U/5 ML UDC PO SCH ×4 (07:48→20:20)
[2016-11-08] MEDS: METOPROLOL TARTRATE 25 MG TAB PO SCH ×2 (07:48→20:19)
[2016-11-08] MEDS: CEROVITE ADV FORMULA TAB PO SCH (07:48)
[2016-11-08] MEDS: POTASSIUM CHLORIDE 10 MEQ TABCR PO SCH (07:49)
[2016-11-08] MEDS: FERROUS SULFATE 325 MG TAB PO SCH ×2 (07:49→20:19)
[2016-11-08] MEDS: ASPIRIN 81 MG ECTAB PO SCH (07:49)
[2016-11-08] MEDS: FUROSEMIDE 20 MG TAB PO SCH (07:49)
[2016-11-08] MEDS: CHOLECALCIFEROL 1000 INTER.UNIT TAB PO SCH (07:49)
[2016-11-08] MEDS: INSULIN ASPART 100 UNITS/ML 3 ML PEN SC SCH ×4 (07:53→20:25)
[2016-11-08] MEDS: HEPARIN SOD 5000 UNIT/0.5 ML CARP SQ SCH ×2 (07:53→20:25)
[2016-11-08] MEDS: VANCOMYCIN INJ 1,000 MG in SODIUM CHLORIDE 0.9% 250ML 250 ML IV SCH (09:51)
--- NOTE | 2016-11-08 10:18 | Clinical Documentation Query ---
CLINICAL DOCUMENTATION QUERY QUERY 1 OF 2 86 year old male who presents to the Emergency Room with complaints of constant left foot pain that began August 20. He is accompanied by his daughter who states that he came into the ED August 20 for gangrene in his left middle toe. In your clinical opinion is this patient being managed for: ( ) Diabetic osteomyelitis of left toe ( ) Left toe osteomyelitis due to peripheral vascular disease ( x ) Osteomyelitis due to both diabetes and peripheral vascular disease ( ) Other explanation of clinical findings (Please Explain) ( ) Unable to determine (Please Define) ( ) Need to Discuss ( ) Not Agree The medical record reflects the following clinical findings, treatment, and risk factors. Clinical Indicators: Suspected osteomyelitis per progress notes, left foot xray - "Residual proximal phalanx suggests developing erosive change and underlying osteomyelitis." Treatment: Antibiotics, blood glucose control with sliding scale insulin coverage, wound and infectious disease consult Risk Factors: Age, diabetic neuropathy, DC, CHF, HTN, Orthopedic surgery, amputation QUERY 2 OF 2 Progress note states the patient has "Black Tongue". By [facility] ICD-10 alphabetical indexing, this terminology is unable to be coded. In your clinical opinion is this patient being managed for: ( x ) Oral thrush evidenced by black tongue treated with Nystatin ( ) Other explanation of clinical findings (Please Explain) ( ) Unable to determine (Please Define) ( ) Need to Discuss ( ) Not Agree The medical record reflects the following clinical findings, treatment, and risk factors. Clinical Indicators: As above, fungal smear positive for yeast. Treatment: Nystatin Risk Factors: Age, antibiotic use Please clarify and document your clinical opinion in the progress notes and discharge summary. Terms such as "probable", "suspected", "likely", "questionable", "possible", or "still to be ruled out" are acceptable. IF IN AGREEMENT, YOU MUST DOCUMENT ABOVE DIAGNOSTIC STATEMENT IN DAILY PROGRESS NOTES AND DISCHARGE SUMMARY. This document is not part of the patient's record. Thank You, Chela Sanders RN [phone]
[2016-11-08 15:33] VITALS: BP 125/67; PULSE 91; TEMP 36.3; O2SAT 100
--- NOTE | 2016-11-08 15:49 | Infectious Disease Progress Nt ---
Progress Note Date of Service Nov 08, 2016. Subjective Pt evaluation today including: conversation w/ patient, physical exam, chart review, lab review, review of studies, conversation w/ homemaking rehabilitation consultant, review of inpatient medication list Patient offers no new complaints today. Appears to be tolerating antibiotics without apparent difficulty. Toe culture with Pseudomonas and E coli,, oral culture with yeast. All Other Systems: Reviewed and Negative Medications Current Inpatient Medications Medications (Trade) Dose Ordered Sig/Rosemarie Route Start Time Stop Time Status Last Admin Dose Admin Acetaminophen (Tylenol Tab) 650 mg Q4H PRN PO 11/05/16 13:00 12/05/16 12:59 11/06/16 23:58 650 MG Ondansetron HCl (Zofran Inj) 4 mg Q6H PRN IV 11/05/16 13:00 12/05/16 12:59 Heparin Sodium (Porcine) (Heparin Sq 5000 Unit/0.5ml) 5,000 unit Q12 SQ 11/05/16 21:00 12/05/16 20:59 11/08/16 07:53 5,000 UNIT Aspirin (Ecotrin Tab) 81 mg QAM PO 11/06/16 09:00 12/06/16 08:59 11/08/16 07:49 81 MG Folic Acid (Folvite Tab) 1 mg QAM PO 11/06/16 09:00 12/06/16 08:59 11/08/16 07:49 1 MG Furosemide (Lasix Tab) 20 mg QAM PO 11/06/16 09:00 12/06/16 08:59 11/08/16 07:49 20 MG Metoprolol Tartrate (Lopressor Tab) 25 mg BID PO 11/05/16 21:00 12/05/16 20:59 11/08/16 07:48 25 MG Multivitamins/ Minerals (Multivitamin W/ Minerals Tab) 1 tab QAM PO 11/06/16 09:00 12/06/16 08:59 11/08/16 07:48 1 TAB Potassium Chloride (Klor-Con M10) 10 meq QAM PO 11/06/16 09:00 12/06/16 08:59 11/08/16 07:49 10 MEQ Cholecalciferol (Vitamin D Tab) 2,000 inter.unit QAM PO 11/06/16 09:00 12/06/16 08:59 11/08/16 07:49 2,000 INTER.UNIT Ferrous Sulfate (Feosol Tab) 325 mg BID PO 11/05/16 21:00 12/05/16 20:59 11/08/16 07:49 325 MG Insulin Aspart (novoLOG ASPART) SLIDING SCALE If C... ACHS SC 11/05/16 16:00 12/05/16 15:59 11/08/16 12:01 5 UNITS Glucose (Glucose 40% Gel) 15-30 GRAMS 15 GRAMS... UD PRN PO 11/05/16 13:15 12/05/16 13:14 Glucose (Glucose Chew Tab) 4-8 Tablets 4 Tabl... UD PRN PO 11/05/16 13:15 12/05/16 13:14 Dextrose (Dextrose 50% 50ML Syringe) 25-50ML OF 50% DW IV FOR... UD PRN IV 11/05/16 13:15 12/05/16 13:14 Glucagon (Glucagon Inj) 1 mg UD PRN SQ 11/05/16 13:15 12/05/16 13:14 Insulin Glargine (Lantus Solostar Pen) 5 units HS SC 11/05/16 21:00 12/05/16 20:59 11/07/16 21:05 5 UNITS Vancomycin HCl 1000 mg/Sodium Chloride 270 ml @ 125 mls/hr Q18H IV 11/06/16 04:00 12/18/16 03:59 11/08/16 09:51 125 MLS/HR Piperacillin Sod/ Tazobactam Sod 3.375 gm/Dextrose 115 ml @ 28.75 mls/ hr Q8H IV 11/05/16 18:00 12/17/16 17:59 11/08/16 09:50 28.75 MLS/HR Vancomycin HCl (Consult) 1 ea UD PRN N/A 11/05/16 15:30 12/05/16 15:29 Piperacillin Sod/ Tazobactam Sod (Consult) 1 ea UD PRN N/A 11/05/16 15:30 12/05/16 15:29 Enteral Nutritional Formula (Boost Glucose Control) 1 can TIDM PO 11/05/16 17:00 12/05/16 16:59 11/08/16 12:01 1 CAN Nystatin (Mycostatin Susp) 5 ml QID PO 11/06/16 17:00 11/16/16 16:59 11/08/16 12:01 5 ML Heparin Sodium (Porcine) (Heparin 10 Unit/ ml 5 ml Flush) 5 ml PRN PRN FLUSH 11/07/16 17:30 12/07/16 17:29 11/08/16 14:22 5 ML Objective Vital Signs Date Time Temp Pulse Resp B/P (MAP) Pulse Ox O2 Delivery O2 Flow Rate FiO2 11/08/16 15:33 36.3 91 18 125/67 (86) 100 Room Air 11/08/16 08:00 Room Air 11/08/16 07:30 36.4 87 20 136/74 (94) 100 11/08/16 00:00 Room Air 11/08/16 00:00 36.6 76 18 117/66 (83) 95 Room Air 11/07/16 20:00 Room Air 11/07/16 16:00 Room Air Physical Exam General Appearance: WD/WN, no apparent distress Eyes: normal inspection, EOMI, sclerae normal ENT: pharynx normal, + pertinent finding ( coated tongue) Neck: supple, no adenopathy, thyroid normal, trachea midline Respiratory/Chest: chest non-tender, lungs clear, normal breath sounds, no respiratory distress Cardiovascular: regular rate, rhythm, no gallop, no murmur Abdomen: normal bowel sounds, non tender, soft, no organomegaly Extremities: non-tender, no calf tenderness Neurologic/Psychiatric: alert, oriented x 3 Skin: normal color, no rash Lymphatic: no adenopathy (.) Laboratory Results --- RUN DATE: 11/08/16 [facility] LAB PAGE 1 RUN TIME: 1050 Specimen Inquiry PATIENT: GULSHANMIGUEL Jacobs JR [facility] #: [id number] LOC: JAEL U # : [id number] AGE/SX: 86/M ROOM: [facility] REG : 11/05/[address]: Seng Zarate M.D. : 1930 BED: 1 DIS : STATUS: ADM IN TLOC: SPEC #: [id number] MARY: 11/05/16 STATUS: RES REQ #: [id number] RECD: 11/05/[address]: Lb Huggins M.D. SOURCE: DRAIN-SURF ENTR: 11/05/[address]: Seng Narvaez III, M.D. SPDESC: TOE R3 ORDERED: SURF WND CU/SMR COMMENTS: Has Specimen Been Obtained/Collected? Y Procedure Result Verified Site GRAM STAIN Final 11/05/16-1103 RESULT MODERATE WBCs SEEN FEW GRAM NEGATIVE BACILLI SURFACE WOUND CULTURE Preliminary 11/08/16-1050 Organism 1 ESCHERICHIA COLI QUANITY MODERATE SENS SENSITIVITY TO FOLLOW Organism 2 PSEUDOMONAS AERUGINOSA QUANITY FEW SENS SENSITIVITY TO FOLLOW 2. PSEUDOMONAS AERUGINOSA Target Route Dose RX AB Cost M.I.C. IQ ------ ----- ------ -- ------ -------- - ------ CEFTAZIDIME S <=1 CEFEPIME S <=4 IMIPENEM S <=1 AZTREONAM S <=4 GENTAMICIN S <=4 TOBRAMYCIN S <=4 AMIKACIN S <=16 CIPROFLOXACIN I 2 LEVOFLOXACIN I 4 PIP/TAZO S <=16 S = SENSITIVE I = INTERMEDIATE R = RESISTANT END OF REPORT Last 24 Hours Test 11/07/16 16:35 11/07/16 20:30 11/08/16 05:17 11/08/16 07:18 Bedside Glucose 261 mg/dl 236 mg/dl 180 mg/dl White Blood Count 8.03 K/uL Red Blood Count 3.21 M/uL Hemoglobin 8.6 g/dL Hematocrit 27.9 % Mean Corpuscular Volume 86.9 fL Mean Corpuscular Hemoglobin 26.8 pg Mean Corpuscular Hemoglobin Concent 30.8 g/dl RDW Standard Deviation 56.9 fL RDW Coefficient of Variation 17.7 % Platelet Count 180 K/uL Mean Platelet Volume 10.1 fL Creatinine 1.50 mg/dl Est Creatinine Clear Calc Drug Dose 35.1 ml/min Estimated GFR () 47.5 Estimated GFR (Non- 41.0 Test 11/08/16 11:02 Bedside Glucose 220 mg/dl Assessment and Plan 78-year-old male with severe peripheral arterial disease status post amputation of left 3rd toe for gangrene, now with cellulitis involving the left foot and ankle, as well as possible osteomyelitis in the residual bone the 3rd toe with E coli and Pseudomonas. also with probable oral candidiasis. Patient should be continued on vancomycin and Zosyn for now, and consider addition of fluconazole. Will follow.
[2016-11-08 16:00] VITALS: O2SAT 100
[2016-11-08] MEDS: INSULIN GLARGINE SOLOSTAR 100 UNITS/ML 3 ML PEN SC SCH (20:26)
--- NOTE | 2016-11-08 20:28 | Progress Note ---
Medicine Progress Note Date & Time of Visit: Nov 08, 2016 at 09:40 . Subjective No fever. No foot pain. No chest pain. No cough or unusual shortness of breath. No nausea, vomiting, diarrhea. No urinary symptoms. . Objective Last 8 Hrs Date Time Temp Pulse Resp B/P (MAP) Pulse Ox O2 Delivery O2 Flow Rate FiO2 11/08/16 16:00 100 Room Air 11/08/16 15:33 36.3 91 18 125/67 (86) 100 Room Air Physical Exam: General- sitting in chair, no distress Lungs- clear Heart- irregular Abdomen- normal bowel sounds, soft, nontender Extremities- trace pretibial edema; no calf tenderness; left foot bandaged Neuro- alert . Laboratory Results: Last 24 Hours Test 11/07/16 20:30 11/08/16 05:17 11/08/16 07:18 11/08/16 11:02 Bedside Glucose 236 mg/dl 180 mg/dl 220 mg/dl White Blood Count 8.03 K/uL Red Blood Count 3.21 M/uL Hemoglobin 8.6 g/dL Hematocrit 27.9 % Mean Corpuscular Volume 86.9 fL Mean Corpuscular Hemoglobin 26.8 pg Mean Corpuscular Hemoglobin Concent 30.8 g/dl RDW Standard Deviation 56.9 fL RDW Coefficient of Variation 17.7 % Platelet Count 180 K/uL Mean Platelet Volume 10.1 fL Creatinine 1.50 mg/dl Est Creatinine Clear Calc Drug Dose 35.1 ml/min Estimated GFR () 47.5 Estimated GFR (Non- 41.0 Test 11/08/16 16:42 11/08/16 20:15 Bedside Glucose 325 mg/dl 265 mg/dl Assessment & Plan LEFT FOOT INFECTION Febrile at home. 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 Presented with cellulitis with suspected underlying osteomyelitis. Labs at time of admission: WBC 8480, ESR 68, C-reactive protein 7.09. ID and Wound Care consulted. Therapy with IV vancomycin and piperacillin/tazobactam recommended. Wound culture growing Escherichia coli and Pseudomonas aeruginosa. May be able to discontinue vancomycin-discussed with ID. CORONARY ARTERY DISEASE No anginal symptoms. Continue aspirin and metoprolol. 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 Continue diuretics. ATRIAL FIBRILLATION Rate controlled on metoprolol. On warfarin in past, but discontinued because of epistaxis and unsteady gait. CKD III Serum creatinine stable at 1.5. DM TYPE 2 Blood sugars elevated. Fasting blood sugar this morning 180. Titrate insulin therapy. VTE PROPHYLAXIS SQ heparin. DISPOSITION To be determined. Family Medicine follow-up with Dr. Narvaez. . Current Inpatient Medications: Current Inpatient Medications Medications (Trade) Dose Ordered Sig/Rosemarie Route Start Time Stop Time Status Last Admin Dose Admin Acetaminophen (Tylenol Tab) 650 mg Q4H PRN PO 11/05/16 13:00 12/05/16 12:59 11/06/16 23:58 650 MG Ondansetron HCl (Zofran Inj) 4 mg Q6H PRN IV 11/05/16 13:00 12/05/16 12:59 Heparin Sodium (Porcine) (Heparin Sq 5000 Unit/0.5ml) 5,000 unit Q12 SQ 11/05/16 21:00 12/05/16 20:59 11/08/16 20:25 5,000 UNIT Aspirin (Ecotrin Tab) 81 mg QAM PO 11/06/16 09:00 12/06/16 08:59 11/08/16 07:49 81 MG Folic Acid (Folvite Tab) 1 mg QAM PO 11/06/16 09:00 12/06/16 08:59 11/08/16 07:49 1 MG Furosemide (Lasix Tab) 20 mg QAM PO 11/06/16 09:00 12/06/16 08:59 11/08/16 07:49 20 MG Metoprolol Tartrate (Lopressor Tab) 25 mg BID PO 11/05/16 21:00 12/05/16 20:59 11/08/16 20:19 25 MG Multivitamins/ Minerals (Multivitamin W/ Minerals Tab) 1 tab QAM PO 11/06/16 09:00 12/06/16 08:59 11/08/16 07:48 1 TAB Potassium Chloride (Klor-Con M10) 10 meq QAM PO 11/06/16 09:00 12/06/16 08:59 11/08/16 07:49 10 MEQ Cholecalciferol (Vitamin D Tab) 2,000 inter.unit QAM PO 11/06/16 09:00 12/06/16 08:59 11/08/16 07:49 2,000 INTER.UNIT Ferrous Sulfate (Feosol Tab) 325 mg BID PO 11/05/16 21:00 12/05/16 20:59 11/08/16 20:19 325 MG Insulin Aspart (novoLOG ASPART) SLIDING SCALE If C... ACHS SC 11/05/16 16:00 12/05/16 15:59 11/08/16 20:25 5 UNITS Glucose (Glucose 40% Gel) 15-30 GRAMS 15 GRAMS... UD PRN PO 11/05/16 13:15 12/05/16 13:14 Glucose (Glucose Chew Tab) 4-8 Tablets 4 Tabl... UD PRN PO 11/05/16 13:15 12/05/16 13:14 Dextrose (Dextrose 50% 50ML Syringe) 25-50ML OF 50% DW IV FOR... UD PRN IV 11/05/16 13:15 12/05/16 13:14 Glucagon (Glucagon Inj) 1 mg UD PRN SQ 11/05/16 13:15 12/05/16 13:14 Insulin Glargine (Lantus Solostar Pen) 5 units HS SC 11/05/16 21:00 12/05/16 20:59 11/08/16 20:26 5 UNITS Vancomycin HCl 1000 mg/Sodium Chloride 270 ml @ 125 mls/hr Q18H IV 11/06/16 04:00 12/18/16 03:59 11/08/16 09:51 125 MLS/HR Piperacillin Sod/ Tazobactam Sod 3.375 gm/Dextrose 115 ml @ 28.75 mls/ hr Q8H IV 11/05/16 18:00 12/17/16 17:59 11/08/16 17:59 28.75 MLS/HR Vancomycin HCl (Consult) 1 ea UD PRN N/A 11/05/16 15:30 12/05/16 15:29 Piperacillin Sod/ Tazobactam Sod (Consult) 1 ea UD PRN N/A 11/05/16 15:30 12/05/16 15:29 Enteral Nutritional Formula (Boost Glucose Control) 1 can TIDM PO 11/05/16 17:00 12/05/16 16:59 11/08/16 16:50 1 CAN Nystatin (Mycostatin Susp) 5 ml QID PO 11/06/16 17:00 11/16/16 16:59 11/08/16 20:20 5 ML Heparin Sodium (Porcine) (Heparin 10 Unit/ ml 5 ml Flush) 5 ml PRN PRN FLUSH 11/07/16 17:30 12/07/16 17:29 11/08/16 14:22 5 ML
[2016-11-09] VITALS: BP 128/84; PULSE 98; TEMP 36.4; O2SAT 94
[2016-11-09] MEDS ORDERED: INSULIN ASPART 100 UNITS/ML 3 ML PEN SC ONE (01:00)
[2016-11-09] MEDS: PIPERACILL/TAZOBAC IV 3.375 GM in DEXTROSE 5% 100ML IV SCH ×3 (01:46→17:55)
[2016-11-09] MEDS: VANCOMYCIN INJ 1,000 MG in SODIUM CHLORIDE 0.9% 250ML 250 ML IV SCH (04:19)
[2016-11-09 06:42] LABS: BUN/CREATININE RATIO 18.6 (10-20); CREATININE 1.4 mg/dl (0.60-1.40); POTASSIUM 3.2 mmol/L (3.5-5.1)
[2016-11-09 06:57] VITALS: BP 129/54; PULSE 76; TEMP 36.5; O2SAT 97
[2016-11-09] MEDS: BOOST GLUCOSE CONTROL PO SCH ×3 (08:06→17:07)
[2016-11-09] MEDS: METOPROLOL TARTRATE 25 MG TAB PO SCH ×2 (08:07→20:58)
[2016-11-09] MEDS: FUROSEMIDE 20 MG TAB PO SCH (08:07)
[2016-11-09] MEDS: NYSTATIN SUSP 500,000 U/5 ML UDC PO SCH ×4 (08:07→20:58)
[2016-11-09] MEDS: CEROVITE ADV FORMULA TAB PO SCH (08:07)
[2016-11-09] MEDS: CHOLECALCIFEROL 1000 INTER.UNIT TAB PO SCH (08:08)
[2016-11-09] MEDS: ASPIRIN 81 MG ECTAB PO SCH (08:08)
[2016-11-09] MEDS: FERROUS SULFATE 325 MG TAB PO SCH ×2 (08:08→20:57)
[2016-11-09] MEDS: HEPARIN SOD 5000 UNIT/0.5 ML CARP SQ SCH ×2 (08:12→21:07)
[2016-11-09] MEDS: INSULIN ASPART 100 UNITS/ML 3 ML PEN SC SCH ×4 (08:12→21:06)
[2016-11-09] MEDS: POTASSIUM CHLORIDE 20 MEQ TABCR PO SCH ×2 (08:41→17:09)
--- NOTE | 2016-11-09 10:01 | Infectious Disease Progress Nt ---
Progress Note Date of Service Nov 09, 2016. Subjective Pt evaluation today including: conversation w/ patient, physical exam, chart review, lab review, review of studies, conversation w/ freight traffic consultant, review of inpatient medication list Patient feeling better. Tolerating Abx. Remains afebrile.No other new complaints. All Other Systems: Reviewed and Negative Medications Current Inpatient Medications Medications (Trade) Dose Ordered Sig/Rosemarie Route Start Time Stop Time Status Last Admin Dose Admin Acetaminophen (Tylenol Tab) 650 mg Q4H PRN PO 11/05/16 13:00 12/05/16 12:59 11/06/16 23:58 650 MG Ondansetron HCl (Zofran Inj) 4 mg Q6H PRN IV 11/05/16 13:00 12/05/16 12:59 Heparin Sodium (Porcine) (Heparin Sq 5000 Unit/0.5ml) 5,000 unit Q12 SQ 11/05/16 21:00 12/05/16 20:59 11/09/16 08:12 5,000 UNIT Aspirin (Ecotrin Tab) 81 mg QAM PO 11/06/16 09:00 12/06/16 08:59 11/09/16 08:08 81 MG Folic Acid (Folvite Tab) 1 mg QAM PO 11/06/16 09:00 12/06/16 08:59 11/09/16 08:07 1 MG Furosemide (Lasix Tab) 20 mg QAM PO 11/06/16 09:00 12/06/16 08:59 11/09/16 08:07 20 MG Metoprolol Tartrate (Lopressor Tab) 25 mg BID PO 11/05/16 21:00 12/05/16 20:59 11/09/16 08:07 25 MG Multivitamins/ Minerals (Multivitamin W/ Minerals Tab) 1 tab QAM PO 11/06/16 09:00 12/06/16 08:59 11/09/16 08:07 1 TAB Cholecalciferol (Vitamin D Tab) 2,000 inter.unit QAM PO 11/06/16 09:00 12/06/16 08:59 11/09/16 08:08 2,000 INTER.UNIT Ferrous Sulfate (Feosol Tab) 325 mg BID PO 11/05/16 21:00 12/05/16 20:59 11/09/16 08:08 325 MG Insulin Aspart (novoLOG ASPART) SLIDING SCALE If C... ACHS SC 11/05/16 16:00 12/05/16 15:59 11/09/16 08:12 3 UNITS Glucose (Glucose 40% Gel) 15-30 GRAMS 15 GRAMS... UD PRN PO 11/05/16 13:15 12/05/16 13:14 Glucose (Glucose Chew Tab) 4-8 Tablets 4 Tabl... UD PRN PO 11/05/16 13:15 12/05/16 13:14 Dextrose (Dextrose 50% 50ML Syringe) 25-50ML OF 50% DW IV FOR... UD PRN IV 11/05/16 13:15 12/05/16 13:14 Glucagon (Glucagon Inj) 1 mg UD PRN SQ 11/05/16 13:15 12/05/16 13:14 Insulin Glargine (Lantus Solostar Pen) 5 units HS SC 11/05/16 21:00 12/05/16 20:59 11/08/16 20:26 5 UNITS Piperacillin Sod/ Tazobactam Sod 3.375 gm/Dextrose 115 ml @ 28.75 mls/ hr Q8H IV 11/05/16 18:00 12/17/16 17:59 11/09/16 01:46 28.75 MLS/HR Piperacillin Sod/ Tazobactam Sod (Consult) 1 ea UD PRN N/A 11/05/16 15:30 12/05/16 15:29 Enteral Nutritional Formula (Boost Glucose Control) 1 can TIDM PO 11/05/16 17:00 12/05/16 16:59 11/09/16 08:06 1 CAN Nystatin (Mycostatin Susp) 5 ml QID PO 11/06/16 17:00 11/16/16 16:59 11/09/16 08:07 5 ML Heparin Sodium (Porcine) (Heparin 10 Unit/ ml 5 ml Flush) 5 ml PRN PRN FLUSH 11/07/16 17:30 12/07/16 17:29 11/09/16 07:05 5 ML Potassium Chloride (Klor-Con Tab) 20 meq BID17 PO 11/09/16 09:00 12/09/16 08:59 11/09/16 08:41 20 MEQ Objective Vital Signs Date Time Temp Pulse Resp B/P (MAP) Pulse Ox O2 Delivery O2 Flow Rate FiO2 11/09/16 08:00 Room Air 11/09/16 06:57 36.5 76 20 129/54 (79) 97 Room Air 11/09/16 00:00 36.4 98 18 128/84 (99) 94 Room Air 11/08/16 23:45 Room Air 11/08/16 16:00 100 Room Air 11/08/16 15:33 36.3 91 18 125/67 (86) 100 Room Air Physical Exam General Appearance: WD/WN, no apparent distress Eyes: normal inspection, sclerae normal ENT: normal ENT inspection, pharynx normal Neck: supple, no adenopathy, trachea midline Respiratory/Chest: chest non-tender, lungs clear, normal breath sounds, no respiratory distress Cardiovascular: no gallop, + systolic murmur, + irregularly irregular Abdomen: normal bowel sounds, non tender, soft, no organomegaly Extremities: non-tender, no calf tenderness Neurologic/Psychiatric: alert, oriented x 3 Skin: normal color, no rash, + pertinent finding (decreased left foot erythema) Lymphatic: no adenopathy Laboratory Results Last 24 Hours Test 11/08/16 11:02 11/08/16 16:42 11/08/16 20:15 11/09/16 00:41 Bedside Glucose 220 mg/dl 325 mg/dl 265 mg/dl 121 mg/dl Test 11/09/16 05:13 11/09/16 07:34 Sodium Level 136 mmol/L Potassium Level 3.2 mmol/L Chloride Level 101 mmol/L Carbon Dioxide Level 28 mmol/L Anion Gap 7.0 mmol/L Blood Urea Nitrogen 26 mg/dl Creatinine 1.40 mg/dl Est Creatinine Clear Calc Drug Dose 37.7 ml/min Estimated GFR () 51.6 Estimated GFR (Non- 44.5 BUN/Creatinine Ratio 18.6 Random Glucose 129 mg/dl Calcium Level 8.0 mg/dl Bedside Glucose 143 mg/dl Assessment and Plan 78-year-old male with severe peripheral arterial disease status post amputation of left 3rd toe for gangrene, now with cellulitis involving the left foot and ankle, as well as possible osteomyelitis in the residual bone the 3rd toe with E coli and Pseudomonas. also with probable oral candidiasis. Patient should be continued on Zosyn and have discontinued vancomycin , and consider addition of fluconazole. Will follow.
--- NOTE | 2016-11-09 10:35 | Wound Progress Note: Inpatient ---
Wound Progress Note Date of Service Nov 08, 2016. Subjective Pt evaluation today including: conversation w/ patient, physical exam, chart review Patient seen today in consultation for evaluation of a postoperative wound to the left foot following amputation of a gangrenous third toe. Patient was recently discharged from the wound care service pending the amputation of the known gangrenous toe to the third digit of the left foot. Patient denies any specific pain increased swelling or redness. Patient denies any fever chills or night sweats. Patient denies any chest pain shortness of breath abdominal discomfort nausea or vomiting. Patient denies any other systemic complaints at this time. Objective Vital Signs Date Time Temp Pulse Resp B/P (MAP) Pulse Ox O2 Delivery O2 Flow Rate FiO2 11/09/16 08:00 Room Air 11/09/16 06:57 36.5 76 20 129/54 (79) 97 Room Air 11/09/16 00:00 36.4 98 18 128/84 (99) 94 Room Air 11/08/16 23:45 Room Air 11/08/16 16:00 100 Room Air 11/08/16 15:33 36.3 91 18 125/67 (86) 100 Room Air Physical Exam General Appearance: no apparent distress Notes: Patient is currently lying in a hospital bed in no apparent distress. Patient is alert and cooperative examination. The postoperative site on the left foot following amputation of the third digit shows some central slough. There is no active drainage or odor noted at the site. There is some surrounding exfoliation of epidermis of the plantar surface of the foot extending to the medial and dorsal aspect. No significant erythema is now present. No tenderness to palpation or fluctuance noted. Bone is palpable in the base of the postoperative site. Laboratory Results Last 24 Hours Test 11/08/16 11:02 11/08/16 16:42 11/08/16 20:15 11/09/16 00:41 Bedside Glucose 220 mg/dl 325 mg/dl 265 mg/dl 121 mg/dl Test 11/09/16 05:13 11/09/16 07:34 Sodium Level 136 mmol/L Potassium Level 3.2 mmol/L Chloride Level 101 mmol/L Carbon Dioxide Level 28 mmol/L Anion Gap 7.0 mmol/L Blood Urea Nitrogen 26 mg/dl Creatinine 1.40 mg/dl Est Creatinine Clear Calc Drug Dose 37.7 ml/min Estimated GFR () 51.6 Estimated GFR (Non- 44.5 BUN/Creatinine Ratio 18.6 Random Glucose 129 mg/dl Calcium Level 8.0 mg/dl Bedside Glucose 143 mg/dl Assessment and Plan Assessment: Postoperative amputation site third digit left foot with osteomyelitis and cellulitis. Plan: The site did require debridement with the patient's permission and after the application of topical Xylocaine 4% site was debridement with a combination of scissors forceps and a #5 curette. Exfoliative and epidermis was removed along with some central slough in the amputation site. No bleeding occurred. No subcutaneous tissue was removed. The site will be dressed today with Aquasol AG and gauze change daily basis. Orthotics consult was placed for further evaluation of offloading. Patient will continue to be monitored during his hospital course and followed up in the outpatient environment. This represented a non-excisional debridement of 70 cm.
[2016-11-09 14:48] VITALS: BP 139/68; PULSE 86; TEMP 36.3; O2SAT 95
[2016-11-09 16:00] VITALS: O2SAT 95
[2016-11-09] MEDS ORDERED: POTASSIUM CHLORIDE 20 MEQ TABCR PO ONE (16:00)
[2016-11-09] MEDS ORDERED: FUROSEMIDE INJ 20 MG in SYRINGE 0 ML IV ONE (16:15)
[2016-11-09] MEDS ORDERED: INSULIN GLARGINE SOLOSTAR 100 UNITS/ML 3 ML PEN SC ONE (16:33)
[2016-11-09] MEDS ORDERED: INSULIN GLARGINE SOLOSTAR 100 UNITS/ML 3 ML PEN SC SCH (21:00)
--- NOTE | 2016-11-09 22:15 | Progress Note ---
Medicine Progress Note Date & Time of Visit: Nov 09, 2016 at 15:50 . Subjective No fever or chills. No foot pain. Orthopnea and dependent edema slightly worse than baseline. No chest pain. No nausea, vomiting, diarrhea. No urinary symptoms. . Objective Last 8 Hrs Date Time Temp Pulse Resp B/P (MAP) Pulse Ox O2 Delivery O2 Flow Rate FiO2 11/09/16 16:00 95 Room Air 11/09/16 14:48 36.3 86 20 139/68 (91) 95 Room Air Physical Exam: General- no distress Lungs- clear Heart- irregular Abdomen- normal bowel sounds, soft, nontender Extremities- 1+ pretibial edema; no calf tenderness; left foot bandaged Neuro- alert . Laboratory Results: Last 24 Hours Test 11/09/16 00:41 11/09/16 05:13 11/09/16 07:34 11/09/16 11:30 Bedside Glucose 121 mg/dl 143 mg/dl 215 mg/dl Sodium Level 136 mmol/L Potassium Level 3.2 mmol/L Chloride Level 101 mmol/L Carbon Dioxide Level 28 mmol/L Anion Gap 7.0 mmol/L Blood Urea Nitrogen 26 mg/dl Creatinine 1.40 mg/dl Est Creatinine Clear Calc Drug Dose 37.7 ml/min Estimated GFR () 51.6 Estimated GFR (Non- 44.5 BUN/Creatinine Ratio 18.6 Random Glucose 129 mg/dl Calcium Level 8.0 mg/dl Test 11/09/16 16:19 11/09/16 20:08 Bedside Glucose 268 mg/dl 278 mg/dl Assessment & Plan LEFT FOOT INFECTION Febrile at home. 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 Presented with cellulitis with suspected underlying osteomyelitis of residual proximal phalanx of left third toe. Labs at time of admission: WBC 8480, ESR 68, C-reactive protein 7.09. ID and Wound Care consulted. Therapy with IV vancomycin and piperacillin/tazobactam initially recommended. Wound culture growing Escherichia coli and Pseudomonas aeruginosa. Vancomycin discontinued. ORAL THRUSH Continue nystatin. CORONARY ARTERY DISEASE No anginal symptoms. Continue aspirin and metoprolol. 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 Extra furosemide ordered for this afternoon. Continue diuretics. ATRIAL FIBRILLATION Rate controlled on metoprolol. On warfarin in past, but discontinued because of epistaxis and unsteady gait. CKD III Serum creatinine stable at 1.4. DM TYPE 2 Hemoglobin A1c was 6.5 on 09/20/16. Blood sugars intermittently elevated. Fasting blood sugar this morning 143. Continue Lantus and NovoLog per protocol. VTE PROPHYLAXIS SQ heparin. DISPOSITION To be determined. Family Medicine follow-up with Dr. Narvaez. . Current Inpatient Medications: Current Inpatient Medications Medications (Trade) Dose Ordered Sig/Rosemarie Route Start Time Stop Time Status Last Admin Dose Admin Acetaminophen (Tylenol Tab) 650 mg Q4H PRN PO 11/05/16 13:00 12/05/16 12:59 11/06/16 23:58 650 MG Ondansetron HCl (Zofran Inj) 4 mg Q6H PRN IV 11/05/16 13:00 12/05/16 12:59 Heparin Sodium (Porcine) (Heparin Sq 5000 Unit/0.5ml) 5,000 unit Q12 SQ 11/05/16 21:00 12/05/16 20:59 11/09/16 21:07 5,000 UNIT Aspirin (Ecotrin Tab) 81 mg QAM PO 11/06/16 09:00 12/06/16 08:59 11/09/16 08:08 81 MG Folic Acid (Folvite Tab) 1 mg QAM PO 11/06/16 09:00 12/06/16 08:59 11/09/16 08:07 1 MG Furosemide (Lasix Tab) 20 mg QAM PO 11/06/16 09:00 12/06/16 08:59 11/09/16 08:07 20 MG Metoprolol Tartrate (Lopressor Tab) 25 mg BID PO 11/05/16 21:00 12/05/16 20:59 11/09/16 20:58 25 MG Multivitamins/ Minerals (Multivitamin W/ Minerals Tab) 1 tab QAM PO 11/06/16 09:00 12/06/16 08:59 11/09/16 08:07 1 TAB Cholecalciferol (Vitamin D Tab) 2,000 inter.unit QAM PO 11/06/16 09:00 12/06/16 08:59 11/09/16 08:08 2,000 INTER.UNIT Ferrous Sulfate (Feosol Tab) 325 mg BID PO 11/05/16 21:00 12/05/16 20:59 11/09/16 20:57 325 MG Insulin Aspart (novoLOG ASPART) SLIDING SCALE If C... ACHS SC 11/05/16 16:00 12/05/16 15:59 11/09/16 21:06 5 UNITS Glucose (Glucose 40% Gel) 15-30 GRAMS 15 GRAMS... UD PRN PO 11/05/16 13:15 12/05/16 13:14 Glucose (Glucose Chew Tab) 4-8 Tablets 4 Tabl... UD PRN PO 11/05/16 13:15 12/05/16 13:14 Dextrose (Dextrose 50% 50ML Syringe) 25-50ML OF 50% DW IV FOR... UD PRN IV 11/05/16 13:15 12/05/16 13:14 Glucagon (Glucagon Inj) 1 mg UD PRN SQ 11/05/16 13:15 12/05/16 13:14 Piperacillin Sod/ Tazobactam Sod 3.375 gm/Dextrose 115 ml @ 28.75 mls/ hr Q8H IV 11/05/16 18:00 12/17/16 17:59 11/09/16 17:55 28.75 MLS/HR Piperacillin Sod/ Tazobactam Sod (Consult) 1 ea UD PRN N/A 11/05/16 15:30 12/05/16 15:29 Enteral Nutritional Formula (Boost Glucose Control) 1 can TIDM PO 11/05/16 17:00 12/05/16 16:59 11/09/16 17:07 1 CAN Nystatin (Mycostatin Susp) 5 ml QID PO 11/06/16 17:00 11/16/16 16:59 11/09/16 20:58 5 ML Heparin Sodium (Porcine) (Heparin 10 Unit/ ml 5 ml Flush) 5 ml PRN PRN FLUSH 11/07/16 17:30 12/07/16 17:29 11/09/16 15:12 5 ML Potassium Chloride (Klor-Con Tab) 20 meq BID17 PO 11/09/16 09:00 12/09/16 08:59 11/09/16 17:09 20 MEQ Insulin Glargine (Lantus Solostar Pen) 4 units BID SC 11/09/16 21:00 12/05/16 20:59 11/09/16 21:06 4 UNITS
[2016-11-09 23:26] VITALS: BP 117/71; PULSE 77; TEMP 37; O2SAT 93
[2016-11-10] MEDS: PIPERACILL/TAZOBAC IV 3.375 GM in DEXTROSE 5% 100ML IV SCH ×3 (02:42→18:04)
[2016-11-10 05:40] LABS: MEAN CELL VOLUME 86.5 fL (80-100); MEAN CORPUSCULAR HEMOGLOBIN 26.6 pg (25-34); MEAN CORPUSCULAR HGB CONC 30.7 g/dl (32-36); MEAN PLATELET VOLUME 9.9 fL (7.4-10.4); PLATELET COUNT 178 K/uL (130-400); RED BLOOD COUNT 3.12 M/uL (4.7-6.1); WHITE BLOOD COUNT 9.27 K/uL (4.8-10.8)
[2016-11-10 06:17] LABS: BUN/CREATININE RATIO 18.9 (10-20); CALCIUM 8.3 mg/dl (8.5-10.1); CREATININE 1.5 mg/dl (0.60-1.40); POTASSIUM 3.5 mmol/L (3.5-5.1)
[2016-11-10 07:06] VITALS: BP 114/71; PULSE 93; TEMP 36.7; O2SAT 95
[2016-11-10] MEDS: BOOST GLUCOSE CONTROL PO SCH ×3 (08:00→16:55)
[2016-11-10] MEDS: ASPIRIN 81 MG ECTAB PO SCH (08:18)
[2016-11-10] MEDS: CEROVITE ADV FORMULA TAB PO SCH (08:19)
[2016-11-10] MEDS: CHOLECALCIFEROL 1000 INTER.UNIT TAB PO SCH (08:20)
[2016-11-10] MEDS: POTASSIUM CHLORIDE 20 MEQ TABCR PO SCH ×2 (08:21→16:56)
[2016-11-10] MEDS: FUROSEMIDE 20 MG TAB PO SCH (08:22)
[2016-11-10] MEDS: METOPROLOL TARTRATE 25 MG TAB PO SCH ×2 (08:22→20:42)
[2016-11-10] MEDS: NYSTATIN SUSP 500,000 U/5 ML UDC PO SCH ×4 (08:22→20:41)
[2016-11-10] MEDS: INSULIN ASPART 100 UNITS/ML 3 ML PEN SC SCH ×4 (08:31→20:57)
[2016-11-10] MEDS: INSULIN GLARGINE SOLOSTAR 100 UNITS/ML 3 ML PEN SC SCH ×2 (08:32→20:58)
[2016-11-10] MEDS: HEPARIN SOD 5000 UNIT/0.5 ML CARP SQ SCH ×2 (08:32→20:58)
[2016-11-10] MEDS: FERROUS SULFATE 325 MG TAB PO SCH ×2 (08:52→20:41)
[2016-11-10 15:17] VITALS: BP 119/67; PULSE 94; TEMP 36.9; O2SAT 94
[2016-11-10] MEDS ORDERED: VANCOMYCIN TROUGH ONE (15:30)
[2016-11-10 16:00] VITALS: O2SAT 94
[2016-11-10] MEDS ORDERED: EPOETIN ALFA 10,000 UNITS/ML VIAL SQ ONE (21:00)
--- NOTE | 2016-11-10 21:04 | Progress Note ---
Medicine Progress Note Date & Time of Visit: Nov 10, 2016 at ~ 17:00 . Subjective No fever. No foot pain. Less SOB. No cough. No chest pain. No nausea, vomiting, diarrhea. . Objective Last 8 Hrs Date Time Temp Pulse Resp B/P (MAP) Pulse Ox O2 Delivery O2 Flow Rate FiO2 11/10/16 16:00 94 Room Air 11/10/16 15:17 36.9 94 20 119/67 (84) 94 Physical Exam: General- no distress Lungs- clear Heart- irregular; no gallop appreciated Abdomen- normal bowel sounds, soft, nontender Extremities- 1+ pretibial edema; no calf tenderness; left foot bandaged Neuro- alert . Laboratory Results: Last 24 Hours Test 11/10/16 05:17 11/10/16 07:34 11/10/16 11:32 11/10/16 16:28 White Blood Count 9.27 K/uL Red Blood Count 3.12 M/uL Hemoglobin 8.3 g/dL Hematocrit 27.0 % Mean Corpuscular Volume 86.5 fL Mean Corpuscular Hemoglobin 26.6 pg Mean Corpuscular Hemoglobin Concent 30.7 g/dl RDW Standard Deviation 56.1 fL RDW Coefficient of Variation 17.7 % Platelet Count 178 K/uL Mean Platelet Volume 9.9 fL Sodium Level 135 mmol/L Potassium Level 3.5 mmol/L Chloride Level 101 mmol/L Carbon Dioxide Level 28 mmol/L Anion Gap 6.0 mmol/L Blood Urea Nitrogen 28 mg/dl Creatinine 1.50 mg/dl Est Creatinine Clear Calc Drug Dose 35.1 ml/min Estimated GFR () 47.5 Estimated GFR (Non- 41.0 BUN/Creatinine Ratio 18.9 Random Glucose 162 mg/dl Calcium Level 8.3 mg/dl Bedside Glucose 198 mg/dl 214 mg/dl 188 mg/dl Test 11/10/16 20:52 Assessment & Plan LEFT FOOT INFECTION Febrile at home. 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 Presented with cellulitis with suspected underlying osteomyelitis of residual proximal phalanx of left third toe due to DM and peripheral vascular disease. Labs at time of admission: WBC 8480, ESR 68, C-reactive protein 7.09. ID and Wound Care consulted. Initially received therapy with IV vancomycin and piperacillin/tazobactam. Wound culture growing Escherichia coli and Pseudomonas aeruginosa. Vancomycin discontinued. Coordinate plan of care with ID and Case Management. ORAL THRUSH Continue nystatin. CORONARY ARTERY DISEASE No anginal symptoms. Continue aspirin and metoprolol. 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 Extra furosemide ordered for this afternoon. Continue diuretics. ATRIAL FIBRILLATION Rate controlled on metoprolol. On warfarin in past, but discontinued because of epistaxis and unsteady gait. CKD III Serum creatinine stable at 1.5. DM TYPE 2 Hemoglobin A1c was 6.5 on 09/20/16. Blood sugars intermittently elevated. Fasting blood sugar this morning 198. Continue Lantus and NovoLog per protocol. VTE PROPHYLAXIS SQ heparin. DISPOSITION To be determined. Anticipate need for skilled care or inpatient rehab. Case Management consulted. Family Medicine follow-up with Dr. Narvaez. . Current Inpatient Medications: Current Inpatient Medications Medications (Trade) Dose Ordered Sig/Rosemarie Route Start Time Stop Time Status Last Admin Dose Admin Acetaminophen (Tylenol Tab) 650 mg Q4H PRN PO 11/05/16 13:00 12/05/16 12:59 11/06/16 23:58 650 MG Ondansetron HCl (Zofran Inj) 4 mg Q6H PRN IV 11/05/16 13:00 12/05/16 12:59 Heparin Sodium (Porcine) (Heparin Sq 5000 Unit/0.5ml) 5,000 unit Q12 SQ 11/05/16 21:00 12/05/16 20:59 11/10/16 20:58 5,000 UNIT Aspirin (Ecotrin Tab) 81 mg QAM PO 11/06/16 09:00 12/06/16 08:59 11/10/16 08:18 81 MG Folic Acid (Folvite Tab) 1 mg QAM PO 11/06/16 09:00 12/06/16 08:59 11/10/16 08:21 1 MG Furosemide (Lasix Tab) 20 mg QAM PO 11/06/16 09:00 12/06/16 08:59 11/10/16 08:22 20 MG Metoprolol Tartrate (Lopressor Tab) 25 mg BID PO 11/05/16 21:00 12/05/16 20:59 11/10/16 20:42 25 MG Multivitamins/ Minerals (Multivitamin W/ Minerals Tab) 1 tab QAM PO 11/06/16 09:00 12/06/16 08:59 11/10/16 08:19 1 TAB Cholecalciferol (Vitamin D Tab) 2,000 inter.unit QAM PO 11/06/16 09:00 12/06/16 08:59 11/10/16 08:20 2,000 INTER.UNIT Ferrous Sulfate (Feosol Tab) 325 mg BID PO 11/05/16 21:00 12/05/16 20:59 11/10/16 20:41 325 MG Insulin Aspart (novoLOG ASPART) SLIDING SCALE If C... ACHS SC 11/05/16 16:00 12/05/16 15:59 11/10/16 20:57 4 UNITS Glucose (Glucose 40% Gel) 15-30 GRAMS 15 GRAMS... UD PRN PO 11/05/16 13:15 12/05/16 13:14 Glucose (Glucose Chew Tab) 4-8 Tablets 4 Tabl... UD PRN PO 11/05/16 13:15 12/05/16 13:14 Dextrose (Dextrose 50% 50ML Syringe) 25-50ML OF 50% DW IV FOR... UD PRN IV 11/05/16 13:15 12/05/16 13:14 Glucagon (Glucagon Inj) 1 mg UD PRN SQ 11/05/16 13:15 12/05/16 13:14 Piperacillin Sod/ Tazobactam Sod 3.375 gm/Dextrose 115 ml @ 28.75 mls/ hr Q8H IV 11/05/16 18:00 12/17/16 17:59 11/10/16 18:04 28.75 MLS/HR Piperacillin Sod/ Tazobactam Sod (Consult) 1 ea UD PRN N/A 11/05/16 15:30 12/05/16 15:29 Enteral Nutritional Formula (Boost Glucose Control) 1 can TIDM PO 11/05/16 17:00 12/05/16 16:59 11/10/16 16:55 1 CAN Nystatin (Mycostatin Susp) 5 ml QID PO 11/06/16 17:00 11/16/16 16:59 11/10/16 20:41 5 ML Heparin Sodium (Porcine) (Heparin 10 Unit/ ml 5 ml Flush) 5 ml PRN PRN FLUSH 11/07/16 17:30 12/07/16 17:29 8/23/17 14:12 5 ML Potassium Chloride (Klor-Con Tab) 20 meq BID17 PO 11/09/16 09:00 12/09/16 08:59 11/10/16 16:56 20 MEQ Insulin Glargine (Lantus Solostar Pen) 6 units BID SC 11/10/16 09:00 12/05/16 20:59 11/10/16 20:58 6 UNITS Epoetin Davian (Procrit Inj) 10,000 units TODAY@2100 ONCE SQ 11/10/16 21:00 11/10/16 21:01 11/10/16 20:55 10,000 UNITS
[2016-11-11 00:21] VITALS: BP 114/67; PULSE 80; TEMP 36.8; O2SAT 95
[2016-11-11] MEDS: PIPERACILL/TAZOBAC IV 3.375 GM in DEXTROSE 5% 100ML IV SCH ×2 (01:48→09:21)
[2016-11-11 06:45] LABS: HEMATOCRIT 28.8 % (42-52); MEAN CELL VOLUME 86.7 fL (80-100); MEAN CORPUSCULAR HEMOGLOBIN 25.9 pg (25-34); MEAN CORPUSCULAR HGB CONC 29.9 g/dl (32-36); MEAN PLATELET VOLUME 10.5 fL (7.4-10.4); PLATELET COUNT 201 K/uL (130-400); RED BLOOD COUNT 3.32 M/uL (4.7-6.1); WHITE BLOOD COUNT 10.46 K/uL (4.8-10.8)
[2016-11-11 06:54] VITALS: BP 125/77; PULSE 95; TEMP 36.4; O2SAT 96
[2016-11-11] MEDS: POTASSIUM CHLORIDE 20 MEQ TABCR PO SCH (09:08)
[2016-11-11] MEDS: ASPIRIN 81 MG ECTAB PO SCH (09:09)
[2016-11-11] MEDS: FERROUS SULFATE 325 MG TAB PO SCH (09:09)
[2016-11-11] MEDS: FUROSEMIDE 20 MG TAB PO SCH (09:10)
[2016-11-11] MEDS: CHOLECALCIFEROL 1000 INTER.UNIT TAB PO SCH (09:11)
[2016-11-11] MEDS: METOPROLOL TARTRATE 25 MG TAB PO SCH (09:11)
[2016-11-11] MEDS: CEROVITE ADV FORMULA TAB PO SCH (09:11)
[2016-11-11] MEDS: NYSTATIN SUSP 500,000 U/5 ML UDC PO SCH ×2 (09:11→12:04)
[2016-11-11] MEDS: INSULIN ASPART 100 UNITS/ML 3 ML PEN SC SCH ×2 (09:16→12:08)
[2016-11-11] MEDS: HEPARIN SOD 5000 UNIT/0.5 ML CARP SQ SCH (09:17)
[2016-11-11] MEDS: INSULIN GLARGINE SOLOSTAR 100 UNITS/ML 3 ML PEN SC SCH (09:17)
[2016-11-11] MEDS: BOOST GLUCOSE CONTROL PO SCH ×2 (09:21→12:03)
--- NOTE | 2016-11-11 12:29 | Progress Note ---
Medicine Progress Note Date & Time of Visit: Nov 11, 2016 at 11:40 . Subjective No fever. No foot pain. No chest pain, cough, SOB. No nausea, vomiting, diarrhea. . Objective Last 8 Hrs Date Time Temp Pulse Resp B/P (MAP) Pulse Ox O2 Delivery O2 Flow Rate FiO2 11/11/16 10:27 Room Air 11/11/16 06:54 36.4 95 16 125/77 (93) 96 Room Air Physical Exam: General- lying in bed, no distress ENT- oral thrush improved Neck- no JVD Lungs- clear Heart- irregular Abdomen- normal bowel sounds, soft, nontender Extremities- 1+ pretibial edema; mild erythema left leg; no calf tenderness; left foot bandaged Neuro- alert . Laboratory Results: Last 24 Hours Test 11/10/16 16:28 11/10/16 20:52 11/11/16 05:37 11/11/16 07:37 Bedside Glucose 188 mg/dl 233 mg/dl 116 mg/dl White Blood Count 10.46 K/uL Red Blood Count 3.32 M/uL Hemoglobin 8.6 g/dL Hematocrit 28.8 % Mean Corpuscular Volume 86.7 fL Mean Corpuscular Hemoglobin 25.9 pg Mean Corpuscular Hemoglobin Concent 29.9 g/dl RDW Standard Deviation 56.7 fL RDW Coefficient of Variation 17.7 % Platelet Count 201 K/uL Mean Platelet Volume 10.5 fL Test 11/11/16 11:17 Bedside Glucose 198 mg/dl Assessment & Plan LEFT FOOT INFECTION (WOUND INFECTION + OSTEOMYELITIS) Febrile at home. 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 Presented with cellulitis with suspected underlying osteomyelitis of residual proximal phalanx of left third toe due to DM and peripheral vascular disease. Labs at time of admission: WBC 8480, ESR 68, C-reactive protein 7.09. ID and Wound Care consulted. Initially received therapy with IV vancomycin and piperacillin/tazobactam. Wound culture growing Escherichia coli and Pseudomonas aeruginosa. Vancomycin discontinued. Continue piperacillin/tazobactam to complete 6 weeks of therapy (last day ). Wound care per Wound Care team. Follow with [facility] for Wound Care. ORAL THRUSH Improved. Continue nystatin. CORONARY ARTERY DISEASE No anginal symptoms. Continue aspirin and metoprolol. 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 Continue furosemide 20 mg daily with extra afternoon dose for dyspnea or worsening dependent edema. ATRIAL FIBRILLATION Rate controlled on metoprolol. On warfarin in past, but discontinued because of epistaxis and unsteady gait. CKD III Serum creatinine 11/10/16 stable at 1.5. DM TYPE 2 Hemoglobin A1c was 6.5 on 09/20/16. Blood sugars intermittently elevated. Fasting blood sugar this morning = 116.. Continue Lantus and NovoLog per protocol. ANEMIA Anemia of chronic kidney disease managed by Nephrology. Continue FeSO4. Receives Procrit 10,000 units q 2 weeks (dose administered 11/10/16). VTE PROPHYLAXIS SQ heparin. DISPOSITION Needs skilled care or inpatient rehab. Case Management consulted. Arrangements being made for transfer to [facility] for skilled care. Family Medicine follow-up with Dr. Narvaez. . Current Inpatient Medications: Current Inpatient Medications Medications (Trade) Dose Ordered Sig/Rosemarie Route Start Time Stop Time Status Last Admin Dose Admin Acetaminophen (Tylenol Tab) 650 mg Q4H PRN PO 11/05/16 13:00 12/05/16 12:59 11/06/16 23:58 650 MG Ondansetron HCl (Zofran Inj) 4 mg Q6H PRN IV 11/05/16 13:00 12/05/16 12:59 Heparin Sodium (Porcine) (Heparin Sq 5000 Unit/0.5ml) 5,000 unit Q12 SQ 11/05/16 21:00 12/05/16 20:59 11/11/16 09:17 5,000 UNIT Aspirin (Ecotrin Tab) 81 mg QAM PO 11/06/16 09:00 12/06/16 08:59 11/11/16 09:09 81 MG Folic Acid (Folvite Tab) 1 mg QAM PO 11/06/16 09:00 12/06/16 08:59 11/11/16 09:08 1 MG Furosemide (Lasix Tab) 20 mg QAM PO 11/06/16 09:00 12/06/16 08:59 11/11/16 09:10 20 MG Metoprolol Tartrate (Lopressor Tab) 25 mg BID PO 11/05/16 21:00 12/05/16 20:59 11/11/16 09:11 25 MG Multivitamins/ Minerals (Multivitamin W/ Minerals Tab) 1 tab QAM PO 11/06/16 09:00 12/06/16 08:59 11/11/16 09:11 1 TAB Cholecalciferol (Vitamin D Tab) 2,000 inter.unit QAM PO 11/06/16 09:00 12/06/16 08:59 11/11/16 09:11 2,000 INTER.UNIT Ferrous Sulfate (Feosol Tab) 325 mg BID PO 11/05/16 21:00 12/05/16 20:59 11/11/16 09:09 325 MG Insulin Aspart (novoLOG ASPART) SLIDING SCALE If C... ACHS SC 11/05/16 16:00 12/05/16 15:59 11/11/16 12:08 7 UNITS Glucose (Glucose 40% Gel) 15-30 GRAMS 15 GRAMS... UD PRN PO 11/05/16 13:15 12/05/16 13:14 Glucose (Glucose Chew Tab) 4-8 Tablets 4 Tabl... UD PRN PO 11/05/16 13:15 12/05/16 13:14 Dextrose (Dextrose 50% 50ML Syringe) 25-50ML OF 50% DW IV FOR... UD PRN IV 11/05/16 13:15 12/05/16 13:14 Glucagon (Glucagon Inj) 1 mg UD PRN SQ 11/05/16 13:15 12/05/16 13:14 Piperacillin Sod/ Tazobactam Sod 3.375 gm/Dextrose 115 ml @ 28.75 mls/ hr Q8H IV 11/05/16 18:00 12/17/16 17:59 11/11/16 09:21 28.75 MLS/HR Piperacillin Sod/ Tazobactam Sod (Consult) 1 ea UD PRN N/A 11/05/16 15:30 12/05/16 15:29 Enteral Nutritional Formula (Boost Glucose Control) 1 can TIDM PO 11/05/16 17:00 12/05/16 16:59 11/11/16 12:03 1 CAN Nystatin (Mycostatin Susp) 5 ml QID PO 11/06/16 17:00 11/16/16 16:59 11/11/16 12:04 5 ML Heparin Sodium (Porcine) (Heparin 10 Unit/ ml 5 ml Flush) 5 ml PRN PRN FLUSH 11/07/16 17:30 12/07/16 17:29 11/11/16 06:18 5 ML Potassium Chloride (Klor-Con Tab) 20 meq BID17 PO 11/09/16 09:00 12/09/16 08:59 11/11/16 09:08 20 MEQ Insulin Glargine (Lantus Solostar Pen) 6 units BID SC 11/10/16 09:00 12/05/16 20:59 11/11/16 09:17 6 UNITS
[2016-11-11] MEDS ORDERED: MCRK20 PO (12:48)
[2016-11-11] MEDS ORDERED: EPGI10M SQ (12:48)
[2016-11-11] MEDS ORDERED: NYSS5 PO (12:48)
[2016-11-11] MEDS ORDERED: PIPE2SOL IV (12:48)
[2016-11-11] MEDS ORDERED: HPRIS5M SQ (12:48)
[2016-11-11] MEDS ORDERED: LSX20 PO (12:51)
--- NOTE | 2016-11-11 12:59 | Discharge Instructions ---
Discharge Instructions Date of Service Nov 11, 2016. Admission Reason for Admission: Osteomyelitis Of Left Foot Discharge Discharge Diagnosis / Problem: wound infection / osteomyelitis left foot Discharge Goals Goal(s): Increase independence, Improve disease control Activity Recommendations Activity Level: Assistance Required Therapies: Physical Therapy, Occupational Therapy . Additional Information Patient informed of condition: Yes Advance Directives: Yes DNR: Yes Level of Care: Skilled Communicable Disease: Yes (wound infection left foot) Prognosis: Improving Lynn Catheter: No Instructions / Follow-Up Instructions / Follow-Up FOLLOW-UP APPOINTMENTS WOUND CARE Dr. Mike Davenport [facility] for Wound Care Please call clinic to schedule next appointment. FAMILY MEDICINE Dr. Narvaez Please schedule f/u appt when discharged from your facility. Thank you for receiving this patient in transfer. Please call if you have any questions. Seng Zarate . Current Hospital Diet Patient's current hospital diet: Low Sodium Diet (2gm Na), Diabetes Type 2 Diet Discharge Diet Recommended Diet: AHA Diet (Heart Healthy), Diabetes Type 2 Diet Pending Studies Studies pending at discharge: no Physician Orders On Transfer Special Precautions: neuropathy precautions skin precautions offload left foot with Darco surgical shoe fall precautions . Dressing Changes: as instructed by Wound Care team . IV Therapy: IV Zosyn via PICC right upper extremity. Routine PICC care. Discontinue PICC once IV antibiotic therapy completed (Please check with Wound Care before removing). . Vital Signs: routine . Weigh: daily . Additional Orders: Please check CBC and basic metabolic profile twice a week. Fingerstick blood sugars AC + HS. . Laboratory Results Hemoglobin A1c Test 09/20/16 06:20 Range/Units Estimated Average Glucose 140 mg/dl Hemoglobin A1c 6.5 H 4.5-5.6 % Medical Emergencies . Who to Call and When: Medical Emergencies: If at any time you feel your situation is an emergency, please call 911 immediately. . Non-Emergent Contact Non-Emergency issues call your: Primary Care Provider, Hospital Doctor, Specialist (Wound Care clinic) . . "Provider Documentation" section prepared by Seng Zarate. . Core Measure Problem Core Measures: None
--- NOTE | 2016-11-11 14:04 | Discharge Summary ---
Discharge Summary Date of Service Nov 11, 2016. Discharge Summary Admission Date: Nov 05, 2016 at 14:16 Discharge Date: Nov 11, 2016 Discharge Disposition: intermediate facility ([facility]) Principal Diagnosis: wound infection + osteomyelitis left foot . Secondary Diagnoses/Problems: Chronic and Resolved Medical Problems: (1) Aortic stenosis Permanent Comment: s/p AVR Status: Chronic (2) Atrial fibrillation Status: Chronic (3) Carotid arterial disease Status: Chronic (4) CKD (chronic kidney disease), stage III Status: Chronic (5) Diabetes mellitus, type 2 Status: Chronic (6) Diabetic peripheral neuropathy associated with type 2 diabetes mellitus Status: Chronic (7) Dyslipidemia Status: Chronic (8) History of adenomatous polyp of colon Status: Chronic (9) History of diabetic ulcer of foot Status: Chronic (10) Hypertension Status: Chronic (11) Peripheral vascular disease Status: Chronic (12) Rheumatoid arthritis Status: Chronic (13) Septic joint of left knee joint Status: Resolved (14) Systolic and diastolic CHF, chronic Permanent Comment: echo 09/2016 - EF 35-40% Status: Chronic Surgical Problems: (1) Status post amputation of toe of left foot Permanent Comment: 3rd toe Status: Chronic (2) Status post amputation of toe of right foot Permanent Comment: right 2nd toe Status: Chronic (3) Status post aortic valve replacement with bioprosthetic valve Status: Chronic (4) Status post cataract extraction Status: Chronic (5) Status post cholecystectomy Status: Chronic (6) Status post coronary artery bypass grafting Permanent Comment: 2007 Status: Chronic . Procedures: venous duplex lower extremity PICC IV meds PT OT . Consultations: ID with Dr. Morelos Wound Care with Dr. Mckeon . Medication Reconciliation New Medications: Furosemide (Furosemide) 20 Mg Tab 2 MG PO DAILY PRN for SOB or worsening edema for 30 Days Extra dose in afternoon or evening PRN for SOB or worsening edema. Piperacillin Sodium-Tazobactam (Zosyn) 1 Rosi Rosi 3.375 GM IV Q8 for 35 Days Stop date 12/17/16. Heparin Sod (Porcine) (Heparin Sodium) 5,000 Unit/0.5 Ml Inj 5000 UNIT SQ Q12 for 30 Days May discontinue when ambulatory. Nystatin (Nystatin) 5 Ml Susp 5 ML PO QID for 30 Days May change to PRN when thrush improved. Potassium Chloride (Klor-Con M20) 20 Meq Tabcr 20 MEQ PO DAILY for 30 Days Continued Medications: Acetaminophen (Tylenol) 500 Mg Tab 500 MG PO Q4 PRN for Mild Pain MAX 3 GM COMBINED TOTAL ACETAMINOPHEN / 24 HOURS. USE PRN MILD PAIN 1-3 OR FEVER > 101 F Aspirin Enteric Coated (Ecotrin Or Generic) 81 Mg Tab 81 MG PO QAM, TAB Cholecalciferol (Vitamin D3) 2,000 Unit Tab 2000 UNITS PO QAM for 90 Days, TAB 3 Refills Epoetin Davian (Procrit) 10,000 [place] 17386 UNITS SQ q 2 wks for 30 Days Last dose at [facility] 11/10/16. Ferrous Sulfate (Kp Ferrous Sulfate) 325 Mg Tab 1 TAB PO BID Folic Acid (Folvite) 1 Mg Tab 1 MG PO QAM Furosemide (Lasix) 20 Mg Tab 20 MG PO QAM Insulin Glargine (Lantus) 100 Unit/Ml Inj 10 UNITS SC HS Uses 5-10 units at home. Suggest 10 units HS, then adjust as necessary. Insulin Human Regular (Novolin R) 1 Unit/1 Ml Inj UNITS SQ TIDM Uses 5-10 units with each meal at home. Suggest sliding scale at [place]: BGG < 101 none 101-150 4 units 151-200 6 units 201-250 8 units > 250 10 units Metoprolol Tartrate (Lopressor) (Lopressor) 25 Mg Tab 25 MG PO BID, TAB Multivitamins/Minerals (Mvi With Minerals) Tab 1 TAB PO QAM, TAB Discontinued Medications: Potassium Chloride (Micro-K Ext Rel) 10 Meq Capcr 10 MEQ PO QAM, CAP Admission Information HPI (per Admitting provider): 86 year old male who presents to the ER with increased redness and drainage to left 3rd toe amputation site. Patient has had two complicated admissions recently. First was 08/20 - 09/04 for PAD with left foot gangrene and left knee septic arthritis. Patient underwent endarterectomy of the left leg and also left knee arthroscopic irrigation and debridement. Synovial fluid was positive for micrococcus species. Patient was discharged on IV Dapto and Ertapenem for 4 weeks of therapy. Patient was then readmitted 09/19 - 09/27 for severe sepsis likely due to pneumonia. While admitted, Ertapenem was changed to Zosyn and patient completed 7 days of therapy. Due to the left knee septic arthritis and gangrene left toe infection, patient was discharged on IV Dapto to complete the initial 4 weeks of therapy. On 10/19, patient underwent left 3rd toe amputation by Dr. Jefferson. Post operatively, the patient developed increased redness and drainage. He was then placed on a 10 day course of Augmentin which he completed yesterday. Despite this antibiotic, the redness and drainage has persisted. He has been running low grade fevers of around 99 at home. He notes some increased calf pain. He was also treated for thrush. A couple of days ago, he noticed his tongue to become black and has a metallic taste in his mouth. He reports shortness of breath with minimal exertion. He denies chest pain and palpitations. No lightheadedness, dizziness, diaphoresis, or syncopal events. He has had a poor appetite over the past couple of days due to the metallic taste. He denies nausea, vomiting, or diarrhea. No urinary symptoms. In the ER, left foot XR is showing residual proximal left 3rd phalanx suggests developing erosive change and underlying osteomyelitis. WBC is 9.4, patient is afebrile and vitals are stable. ESR and CRP are elevated. He was treated with IV Vanco, Cefepime, and Flagyl. . Physical Exam (per Admitting): General Appearance: no apparent distress Head: normocephalic, atraumatic Eyes: normal inspection, sclerae normal ENT: hearing grossly normal Neck: supple, no JVD Respiratory/Chest: no respiratory distress, + decreased breath sounds (BL bases) Cardiovascular: regular rate, rhythm, + pertinent finding (+1-2 edema BLLE, L > R ) Abdomen/GI: normal bowel sounds, non tender, soft Extremities/Musculoskelatal: + calf tenderness (left) Neurologic/Psych: no motor/sensory deficits, alert, normal mood/affect, oriented x 3 Skin: normal color, warm/dry, + pertinent finding (left 3rd toe amputation site wound with red / cream colored wound bed, no signifnicant amount of drainage, erythema extending from the dorsal aspect of the left foot up the [place] ; drained blister noted to the medical aspect of the base of the left great toe - no surrounding erythema or drainge) Hospital Course LEFT FOOT INFECTION (WOUND INFECTION + OSTEOMYELITIS) Febrile at home. 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 Presented with cellulitis with suspected underlying osteomyelitis of residual proximal phalanx of left third toe due to DM and peripheral vascular disease. Labs at time of admission: WBC 8480, ESR 68, C-reactive protein 7.09. ID and Wound Care consulted. Initially received therapy with IV vancomycin and piperacillin/tazobactam. Wound culture growing Escherichia coli and Pseudomonas aeruginosa. Vancomycin discontinued. Continue piperacillin/tazobactam to complete 6 weeks of therapy (last day ). Wound care per Wound Care team. Follow with [facility] for Wound Care. ORAL THRUSH Improved. Continue nystatin. CORONARY ARTERY DISEASE No anginal symptoms. Continue aspirin and metoprolol. 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 Continue furosemide 20 mg daily with extra afternoon dose for dyspnea or worsening dependent edema. ATRIAL FIBRILLATION Rate controlled on metoprolol. On warfarin in past, but discontinued because of epistaxis and unsteady gait. CKD III Serum creatinine 11/10/16 stable at 1.5. DM TYPE 2 Hemoglobin A1c was 6.5 on 09/20/16. Blood sugars intermittently elevated. Fasting blood sugar this morning = 116.. Continue Lantus and NovoLog per protocol. ANEMIA Anemia of chronic kidney disease managed by Nephrology. Continue FeSO4. Receives Procrit 10,000 units q 2 weeks (dose administered 11/10/16). VTE PROPHYLAXIS SQ heparin. DISPOSITION Needs skilled care or inpatient rehab. Case Management consulted. Arrangements being made for transfer to [facility] for skilled care. Family Medicine follow-up with Dr. Narvaez. . Total time spent on discharge = 50 min. This includes examination of the patient, discharge planning, medication reconciliation, and communication with other providers. . Discharge Instructions Date of Service Nov 11, 2016. Admission Reason for Admission: Osteomyelitis Of Left Foot Discharge Discharge Diagnosis / Problem: wound infection / osteomyelitis left foot Discharge Goals Goal(s): Increase independence, Improve disease control Activity Recommendations Activity Level: Assistance Required Therapies: Physical Therapy, Occupational Therapy . Additional Information Patient informed of condition: Yes Advance Directives: Yes DNR: Yes Level of Care: Skilled Communicable Disease: Yes (wound infection left foot) Prognosis: Improving Lynn Catheter: No Instructions / Follow-Up Instructions / Follow-Up FOLLOW-UP APPOINTMENTS WOUND CARE Dr. Mckeon [facility] for Wound Care Please call clinic to schedule next appointment. FAMILY MEDICINE Dr. Narvaez Please schedule f/u appt when discharged from your facility. Thank you for receiving this patient in transfer. Please call if you have any questions. Seng Zarate . Current Hospital Diet Patient's current hospital diet: Low Sodium Diet (2gm Na), Diabetes Type 2 Diet Discharge Diet Recommended Diet: AHA Diet (Heart Healthy), Diabetes Type 2 Diet Pending Studies Studies pending at discharge: no Physician Orders On Transfer Special Precautions: neuropathy precautions skin precautions offload left foot with Darco surgical shoe fall precautions . Dressing Changes: as instructed by Wound Care team . IV Therapy: IV Zosyn via PICC right upper extremity. Routine PICC care. Discontinue PICC once IV antibiotic therapy completed (Please check with Wound Care before removing). . Vital Signs: routine . Weigh: daily . Additional Orders: Please check CBC and basic metabolic profile twice a week. Fingerstick blood sugars AC + HS. . Laboratory Results Hemoglobin A1c Test 09/20/16 06:20 Range/Units Estimated Average Glucose 140 mg/dl Hemoglobin A1c 6.5 H 4.5-5.6 % Medical Emergencies . Who to Call and When: Medical Emergencies: If at any time you feel your situation is an emergency, please call 911 immediately. . Non-Emergent Contact Non-Emergency issues call your: Primary Care Provider, Hospital Doctor, Specialist (Wound Care clinic) . . "Provider Documentation" section prepared by Seng Zarate. . Core Measure Problem Core Measures: None . Additional Copies To Seng Narvaez III, M.D.; Morteza Mckeon,
[2016-11-11 14:52] VITALS: BP 125/77; PULSE 95; TEMP 36.4; O2SAT 96
[2016-11-11 15:51] VITALS: BP 109/54; PULSE 88; TEMP 36.5; O2SAT 94
[2016-11-11] MEDS ORDERED: PIPERACILL/TAZOBAC IV 3.375 GM in DEXTROSE 5% 100ML 100 ML IV ONE (18:00)
[2016-12-06] MEDS ORDERED: ASCO1CAP3 PO (12:46)
[2016-12-06] MEDS ORDERED: PROTEIN PO (13:17)
[2016-12-06] MEDS ORDERED: NVLGI/PEN SQ (13:17)
[2016-12-20] MEDS ORDERED: ULT50X PO (19:08)
== END 2016-11-11 16:44 | DRG 564 ==
LOC: C.EDB 09:37 → ENRESERV 13:54 → C.MS2W 14:16
PROVIDERS: ADMIT Internal Medicine; ATTEND Hospitalist
PROC: 05H933Z Insertion of Infusion Device into Right Brachial Vein, Percutaneous Approach (ICD-10-PCS; 2016-11-07)
PROC: 0HDNXZZ Extraction of Left Foot Skin, External Approach (ICD-10-PCS; principal; 2016-11-08)
DX: T87.44 Infection of amputation stump, left lower extremity (principal); I50.43 Acute on chronic combined systolic (congestive) and diastolic (congestive) heart failure; M86.9 Osteomyelitis, unspecified; L03.116 Cellulitis of left lower limb; B37.0 Candidal stomatitis; B96.20 Unspecified Escherichia coli [E. coli] as the cause of diseases classified elsewhere; B96.5 Pseudomonas (aeruginosa) (mallei) (pseudomallei) as the cause of diseases classified elsewhere; Z89.422 Acquired absence of other left toe(s); E11.69 Type 2 diabetes mellitus with other specified complication; E11.51 Type 2 diabetes mellitus with diabetic peripheral angiopathy without gangrene; E11.22 Type 2 diabetes mellitus with diabetic chronic kidney disease; I25.10 Atherosclerotic heart disease of native coronary artery without angina pectoris; I48.91 Unspecified atrial fibrillation; N18.3 Chronic kidney disease, stage 3 (moderate); D63.8 Anemia in other chronic diseases classified elsewhere; T36.0X5A Adverse effect of penicillins, initial encounter; Z86.19 Personal history of other infectious and parasitic diseases; Z89.421 Acquired absence of other right toe(s); Z87.891 Personal history of nicotine dependence; Z79.4 Long term (current) use of insulin; Z79.82 Long term (current) use of aspirin; Z79.899 Other long term (current) drug therapy; Z82.49 Family history of ischemic heart disease and other diseases of the circulatory system; Z84.1 Family history of disorders of kidney and ureter

== ENCOUNTER 2016-12-06 11:12 | Inpatient (IN) | payer OTHER, MEDICARE ==
[~2016-12-06] VITALS: Ht 177.8 cm; Wt 120.0 kg
[~2016-12-06 11:12] MED LIST changes: -ACET-1311 PO; -ASCO1CAP3 PO; -NVLGI/PEN SQ; -PROTEIN PO; -ULT50X PO
[2016-12-06] MEDS ORDERED: ACET-1311 PO (12:33)
[2016-12-06] MEDS ORDERED: ONDANSETRON INJ 2 MG/ML 2 ML VIAL IV PRN (12:45)
[2016-12-06] MEDS ORDERED: ACETAMINOPHEN 325 MG TAB PO PRN (12:45)
[2016-12-06] MEDS ORDERED: ASCO1CAP3 PO ×2 (12:46)
[2016-12-06 12:51] VITALS: BP 122/77; PULSE 73; TEMP 36.5; O2SAT 100; Ht 177.8 cm; Wt 120.0 kg
--- NOTE | 2016-12-06 13:06 | DIAGNOSTIC IMAGING REPORT ---
CHEST ONE VIEW PORTABLE CLINICAL HISTORY: 86 years-old Male presenting with CHF, pleural effusions. TECHNIQUE: Portable upright AP view of the chest was obtained. COMPARISON: 11/07/2016. FINDINGS: Right PICC terminates in the SVC. Median sternotomy wires and prosthetic aortic valve again noted. Breakage of the inferior most wire unchanged. Atherosclerosis of aortic arch. Cardiac silhouette likely enlarged although partially obscured due to bibasilar opacities and increasing bilateral pleural effusions. Indistinctness of perihilar vascular markings. No pneumothorax. Osseous structures normal. Upper abdomen normal. IMPRESSION: 1. Increasing bibasilar consolidation and bilateral pleural effusions. This could represent worsening pulmonary edema given the presence of cardiomegaly. Electronically signed by: Xavier Lopez M.D. 12/06/2016 1:05 PM Dictated Date/Time: 12/06/2016 1:03 PM
[2016-12-06 13:09] LABS: BASO % 0.2 %; BASO ABS # 0.01 K/uL (0-0.2); HEMATOCRIT 29.9 % (42-52); IG% 0.2 %; LYMPH % 9.2 %; LYMPH ABS # 0.42 K/uL (1.2-3.4); MEAN CELL VOLUME 91.4 fL (80-100); MEAN CORPUSCULAR HEMOGLOBIN 27.5 pg (25-34); MEAN CORPUSCULAR HGB CONC 30.1 g/dl (32-36); MEAN PLATELET VOLUME 10.5 fL (7.4-10.4); MONO % 13.3 %; NEUT % 75.1 %; PLATELET COUNT 113 K/uL (130-400); RED BLOOD COUNT 3.27 M/uL (4.7-6.1); WHITE BLOOD COUNT 4.59 K/uL (4.8-10.8)
[2016-12-06] MEDS ORDERED: NVLGI/PEN SQ ×2 (13:17)
[2016-12-06] MEDS ORDERED: PROTEIN PO ×2 (13:17)
[2016-12-06 13:30] LABS: ALT/SGPT 34 U/L (12-78); BLOOD UREA NITROGEN 42 mg/dl (7-18); BUN/CREATININE RATIO 23.4 (10-20); CALCIUM 9.1 mg/dl (8.5-10.1); CARBON DIOXIDE 31 mmol/L (21-32); CHLORIDE 100 mmol/L (98-107); GLUCOSE 108 mg/dl (70-99); MAGNESIUM 2.2 mg/dl (1.8-2.4); POTASSIUM 3.6 mmol/L (3.5-5.1); SODIUM 139 mmol/L (136-145)
[2016-12-06] MEDS ORDERED: GLUCAGON FOR INJ 1 MG VIAL SQ PRN (13:30)
[2016-12-06] MEDS ORDERED: GLUCOSE 40% GEL 15 GM TUBE PO PRN (13:30)
[2016-12-06] MEDS ORDERED: GLUCOSE 10 TABS/TUBE PO PRN (13:30)
[2016-12-06] MEDS ORDERED: DEXTROSE 50% 50 ML SYR IV PRN (13:30)
[2016-12-06] MEDS ORDERED: PIPERACILL/TAZOBAC CONSULT ACTIVE PRN (13:30)
[2016-12-06 13:31] LABS: ANISOCYTOSIS PRESENT; COMPLETE YES; HYPOCHROMIA PRESENT
[2016-12-06 13:33] LABS: ALB/GLOB RATIO 0.4 (0.9-2); ALKALINE PHOSPHATASE 69 U/L (45-117); AST/SGOT 36 U/L (15-37)
[2016-12-06] MEDS ORDERED: [UNRECOGNIZED DRUG - OTHER] IV SCH (14:00)
[2016-12-06] MEDS: FUROSEMIDE INJ 40 MG in SYRINGE 0 ML IV SCH (14:16)
--- NOTE | 2016-12-06 14:45 | DIAGNOSTIC IMAGING REPORT ---
BILATERAL CHEST ULTRASOUND TO EVALUATE PLEURAL EFFUSIONS CLINICAL HISTORY: Bilateral pleural effusions. COMPARISON STUDY: Chest radiograph performed earlier today. FINDINGS: Sonography of the right hemithorax revealed a large right pleural effusion with estimated volume of 1565 cc. A suitable right rib interspace was marked for possible subsequent thoracentesis. Sonography of the left hemithorax revealed a large left pleural effusion with estimated volume of 1209 cc. Suitable left rib interspace was marked for possible subsequent thoracentesis. IMPRESSION: Large bilateral pleural effusions, right larger than left. Bilateral chest wall kaiser placed for possible subsequent thoracenteses. Electronically signed by: Jm Cornejo M.D. 12/06/2016 2:43 PM Dictated Date/Time: 12/06/2016 2:42 PM
[2016-12-06 16:08] VITALS: BP 115/75; PULSE 85; TEMP 36.5; O2SAT 100
[2016-12-06] MEDS: PIPERACILL/TAZOBAC IV 3.375 GM in DEXTROSE 5% 100ML IV SCH (16:15)
[2016-12-06] MEDS: FERROUS SULFATE 325 MG TAB PO SCH (16:16)
[2016-12-06] MEDS: INSULIN ASPART 100 UNITS/ML 3 ML PEN SC SCH ×2 (17:14→21:00)
--- NOTE | 2016-12-06 17:50 | History and Physical ---
History & Physical Date & Time of Service: Dec 06, 2016 at 17:06 Chief Complaint: Pe, Volume Overload Primary Care Physician: Angus Bach History of Present Illness 86 year old male who was sent to the hospital as a direct admission from [facility] for volume overload. Patient has been admitted to [facility] three times recently. First was 08/20 - 09/04 for PAD with left foot gangrene and left knee septic arthritis. Patient underwent endarterectomy of the left leg and also left knee arthroscopic irrigation and debridement. Synovial fluid was positive for micrococcus species. Patient was discharged on IV Dapto and Ertapenem for 4 weeks of therapy. Patient was then readmitted 09/19 - 09/27 for severe sepsis likely due to pneumonia. While admitted, Ertapenem was changed to Zosyn and patient completed 7 days of therapy. Due to the left knee septic arthritis and gangrene left toe infection, patient was discharged on IV Dapto to complete the initial 4 weeks of therapy. On 10/19, patient underwent left 3rd toe amputation by Dr. Jefferson. Post operatively, the patient developed increased redness and drainage and was readmitted to [facility] 11/05 - 11/11 for wound infection / ongoing osteomyelitis. Wound culture grew E. Coli and Pseudomonas and patient was discharged on Zosyn to complete treatment on 12/17. Patient reports increasing shortness of breath for the past couple of weeks. He also has had worsening lower extremity edema and orthopnea to point where he is sleeping in a recliner. His diuretics have been titrated up and he was seen by cardiology as an outpatient. Despite this, his symptoms continue to worsen. He started to require oxygen about one week ago. Patient denies chest pain or palpitations. No lightheadedness, dizziness, diaphoresis, or syncopal events. He reports his appetite has been fair. He denies abdominal pain, nausea, vomiting, or diarrhea. No urinary symptoms. He denies fever and chills. His left 5th toe has developed eschar and he has an ulcer on the plantar surface of the left foot. He was seen by Dr. Ahumada who is planning on amputating the toe next week. He continues to be on IV Zosyn. Past Medical/Surgical History Medical Problems: (1) Aortic stenosis Permanent Comment: s/p AVR Status: Chronic (2) Atrial fibrillation Status: Chronic (3) Carotid arterial disease Status: Chronic (4) CKD (chronic kidney disease), stage III Status: Chronic (5) Diabetes mellitus, type 2 Status: Chronic (6) Diabetic peripheral neuropathy associated with type 2 diabetes mellitus Status: Chronic (7) Dyslipidemia Status: Chronic (8) History of adenomatous polyp of colon Status: Chronic (9) History of diabetic ulcer of foot Status: Chronic (10) Hypertension Status: Chronic (11) Peripheral vascular disease Status: Chronic (12) Rheumatoid arthritis Status: Chronic (13) Septic joint of left knee joint Status: Resolved (14) Systolic and diastolic CHF, chronic Permanent Comment: echo 09/2016 - EF 35-40% Status: Chronic Surgical Problems: (1) Status post amputation of toe of left foot Permanent Comment: 3rd toe Status: Chronic (2) Status post amputation of toe of right foot Permanent Comment: right 2nd toe Status: Chronic (3) Status post aortic valve replacement with bioprosthetic valve Status: Chronic (4) Status post cataract extraction Status: Chronic (5) Status post cholecystectomy Status: Chronic (6) Status post coronary artery bypass grafting Permanent Comment: 2007 Status: Chronic Family History non contributory due to patient's advanced age Social History Smoking Status: Former Smoker Alcohol Use: none [facility] Immunizations History of Influenza Vaccine: Yes Influenza Vaccine Date: Feb 06, 2016 History of Tetanus Vaccine?: Yes Tetanus Immunization Date: May 22, 2009 History of Pneumococcal: Yes Pneumococcal Date: Feb 06, 2016 Multi-Drug Resistant Organisms History of MDRO: No Allergies Coded Allergies: HERMAN Inhibitors (Verified Allergy, Intermediate, UNKNOWN, 11/05/16) Lisinopril (Verified Adverse Reaction, Unknown, COUGHING, 11/05/16) Home Medications Scheduled Ascorbic Acid (Vitamin C), 500 MG PO DAILY Aspirin Enteric Coated (Ecotrin Or Generic), 81 MG PO QAM Cholecalciferol (Vitamin D3), 2,000 UNITS PO QAM Epoetin Davian (Procrit), 10,000 UNITS SQ q 2 wks Ferrous Sulfate (Kp Ferrous Sulfate), 1 TAB PO TID Folic Acid (Folvite), 1 MG PO QAM Furosemide (Lasix), 20 MG PO BID Heparin Sod (Porcine) (Heparin Sodium), 5,000 UNIT SQ Q12 Insulin Aspart (Novolog Flexpen), SQ ACHS Insulin Glargine (Lantus), 10 UNITS SC HS Metoprolol Tartrate (Lopressor) (Lopressor), 25 MG PO BID Multivitamins/Minerals (Mvi With Minerals), 1 TAB PO QAM Piperacillin Sodium-Tazobactam (Zosyn), 3.375 GM IV Q8 Potassium Chloride (Klor-Con M20), 20 MEQ PO DAILY [Protein Liquid], 30 ML PO DAILY Scheduled PRN Furosemide (Furosemide), 2 MG PO DAILY PRN for SOB or worsening edema Review of Systems ROS per HPI, all other systems reviewed and negative Physical Exam Vital Signs Date Time Temp Pulse Resp B/P (MAP) Pulse Ox O2 Delivery O2 Flow Rate FiO2 12/06/16 16:08 36.5 85 20 115/75 (88) 100 Nasal Cannula 2.0 12/06/16 12:51 36.5 73 22 122/77 100 Room Air General Appearance: no apparent distress Head: normocephalic Eyes: normal inspection, sclerae normal ENT: hearing grossly normal Neck: supple Respiratory/Chest: no respiratory distress, + decreased breath sounds, + pertinent finding (able to speak in full sentences, noted orthopnea with minimal decrease of the HOB ) Cardiovascular: regular rate, rhythm, + pertinent finding (+3 - 4 pitting edema BLLE extending up to the thighs) Abdomen/GI: normal bowel sounds, non tender, soft, + distended Extremities/Musculoskelatal: normal inspection, no calf tenderness Neurologic/Psych: no motor/sensory deficits, alert, oriented x 3 Skin: + pertinent finding (left 5th toe with eschar; small amount of drainage between 5th and 4th toes; ulcer noted on the plantar surface of the left foot without erythema or drainage ) Diagnostics Laboratory Results Results Past 24 Hours Test 12/06/16 12:41 12/06/16 12:48 Range/Units Sodium Level 139 136-145 mmol/L Potassium Level 3.6 3.5-5.1 mmol/L Chloride Level 100 98-107 mmol/L Carbon Dioxide Level 31 21-32 mmol/L Anion Gap 8.0 3-11 mmol/L Blood Urea Nitrogen 42 7-18 mg/dl Creatinine 1.80 0.60-1.40 mg/dl Estimated GFR () 38.1 Estimated GFR (Non- 32.9 BUN/Creatinine Ratio 23.4 10-20 Random Glucose 108 70-99 mg/dl Calcium Level 9.1 8.5-10.1 mg/dl Magnesium Level 2.2 1.8-2.4 mg/dl Total Bilirubin 0.4 0.2-1 mg/dl Aspartate Amino Transf (AST/SGOT) 36 15-37 U/L Alanine Aminotransferase (ALT/SGPT) 34 12-78 U/L Alkaline Phosphatase 69 45-117 U/L Troponin I 0.031 0-0.045 ng/ml Total Protein 8.2 6.4-8.2 gm/dl Albumin 2.2 3.4-5.0 gm/dl Globulin 6.0 2.5-4.0 gm/dl Albumin/Globulin Ratio 0.4 0.9-2 White Blood Count 4.59 4.8-10.8 K/uL Red Blood Count 3.27 4.7-6.1 M/uL Hemoglobin 9.0 14.0-18.0 g/dL Hematocrit 29.9 42-52 % Mean Corpuscular Volume 91.4 80-100 fL Mean Corpuscular Hemoglobin 27.5 25-34 pg Mean Corpuscular Hemoglobin Concent 30.1 32-36 g/dl Platelet Count 113 130-400 K/uL Mean Platelet Volume 10.5 7.4-10.4 fL Neutrophils (%) (Auto) 75.1 % Lymphocytes (%) (Auto) 9.2 % Monocytes (%) (Auto) 13.3 % Eosinophils (%) (Auto) 2.0 % Basophils (%) (Auto) 0.2 % Neutrophils # (Auto) 3.45 1.4-6.5 K/uL Lymphocytes # (Auto) 0.42 1.2-3.4 K/uL Monocytes # (Auto) 0.61 0.11-0.59 K/uL Eosinophils # (Auto) 0.09 0-0.5 K/uL Basophils # (Auto) 0.01 0-0.2 K/uL RDW Standard Deviation 73.5 36.4-46.3 fL RDW Coefficient of Variation 21.9 11.5-14.5 % Immature Granulocyte % (Auto) 0.2 % Immature Granulocyte # (Auto) 0.01 0.00-0.02 K/uL Hypochromasia PRESENT Anisocytosis PRESENT Diagnostic Radiology CXR IMPRESSION: 1. Increasing bibasilar consolidation and bilateral pleural effusions. This could represent worsening pulmonary edema given the presence of cardiomegaly. CHEST US IMPRESSION: Large bilateral pleural effusions, right larger than left. Bilateral chest wall kaiser placed for possible subsequent thoracenteses. Impression Assessment and Plan ACUTE ON CHRONIC SYSTOLIC CHF, ISCHEMIC CARDIOMYOPATHY BL PLEURAL EFFUSIONS - directly admitted to tele from [place] - patient presenting with increasing shortness of breath and lower extremity edema x 2 weeks despite outpatient titration of diuretics - exacerbation possibly due to receiving IV antibiotics for osteomyelitis - CXR shows BL pleural effusions; US was obtained that showed large effusions that were marked for possible thoracentesis - monitor patient's response to diuretics - consider pulmonary consult for possible thoracentesis - home diuretic dose - 20mg PO BID with an additional tab daily PRN - will start Lasix 40mg IV daily - strict I/Os, matos, daily weights, low Na+ diet - no reports of chest pain, initial troponin negative, will continue to cycle cardiac enzymes - echo 09/2016 - EF 35-40%; will defer repeating to cardiology - cardio consult, input appreciated LEFT 3RD TOE AMPUTATION SITE OSTEOMYELITIS, LEFT 5TH TOE ESCHAR, LEFT PLANTAR SURFACE ULCER - currently receiving IV Zosyn - to complete course on 12/17 - scheduled for left 5th amputation on 12/[address] Ahumada - continue IV Zosyn - wound care consult DM - hgb a1c 6.5 09/2016 - Lantus + SSI CAD - stable, no reports of chest pain - continue ASA and beta norma ATRIAL FIBRILLATION - rate controlled on beta norma, will continue - Coumadin stopped due to epistaxis and unsteady gait CKD STAGE III - baseline creat runs in the mid 1's - creat noted to be 1.8 today - continue to monitor, avoid nephrotoxic agents when able ANEMIA - chronic, hgb at baseline - likely anemia of chronic disease - no signs of bleeding Stg II Sacral Decub-POA, Optifoam applied, EHOB mattress ordered. Wound care consulted. DVT PROPHYLAXIS - SQ Heparin CODE STATUS - Patient is a DNR as per my discussion with him and his daughter who was at the bedside. DISPO - In my clinical judgment this beneficiary meets acute admission criteria, established by [facility], that includes being hospitalized through two midnights. ADDENDUM: I have seen and evaluated the patient and have discussed the case with the provider above. Response to Lasix 40mg IV around 2pm was 1L out. He was given an additional 20mg IV this evening and will cont with 40 IV dosing in the morning and then daily or as adjusted. He has large bilateral pleural effusions. Feel it is important to attempt IV diuresis prior to any thoracentesis at this time given age and risk of procedure. Appreciate Cardiology help in optimizing him. Continue on the Zosyn for the foot wound-- there is also some chronic appearing erythema that does not appear to be cellulitis that is on the R leg. Monitor this for extension. Apprec wound care advice. Sacral decub-POA. EHOB mattress ordered. Zan, Level of Care Telemetry Advanced Directives Existing Living Will: Yes Existing Power of Family Day Care Provider: Yes Resuscitation Status DO NOT RESUSCITATE VTE Prophylaxis VTE Risk Assessment Done? Y/N: Yes Risk Level: Moderate
[2016-12-06 20:06] VITALS: BP 127/72; PULSE 85; TEMP 36.5; O2SAT 98
[2016-12-06] MEDS: METOPROLOL TARTRATE 25 MG TAB PO SCH (20:55)
[2016-12-06] MEDS: INSULIN GLARGINE SOLOSTAR 100 UNITS/ML 3 ML PEN SC SCH (20:59)
[2016-12-06] MEDS ORDERED: FUROSEMIDE INJ 20 MG in SYRINGE 0 ML IV ONE (21:00)
[2016-12-07] VITALS (10 sets, daily range): BP systolic 116–148; BP diastolic 65–81; PULSE 67–82; TEMP 36.4–36.5; O2SAT 96–100
[2016-12-07] MEDS: PIPERACILL/TAZOBAC IV 3.375 GM in DEXTROSE 5% 100ML IV SCH ×3 (00:40→15:35)
[2016-12-07] MEDS: HEPARIN SOD 5000 UNIT/0.5 ML CARP SQ SCH ×3 (05:49→20:33)
[2016-12-07 06:29] LABS: HEMATOCRIT 28.4 % (42-52); MEAN CELL VOLUME 92.2 fL (80-100); MEAN CORPUSCULAR HEMOGLOBIN 28.2 pg (25-34); MEAN CORPUSCULAR HGB CONC 30.6 g/dl (32-36); MEAN PLATELET VOLUME 10.3 fL (7.4-10.4); PLATELET COUNT 108 K/uL (130-400); RED BLOOD COUNT 3.08 M/uL (4.7-6.1); WHITE BLOOD COUNT 4.08 K/uL (4.8-10.8)
[2016-12-07 07:00] LABS: BUN/CREATININE RATIO 22.9 (10-20); CALCIUM 8.3 mg/dl (8.5-10.1); CREATININE 1.8 mg/dl (0.60-1.40); MAGNESIUM 2.2 mg/dl (1.8-2.4); POTASSIUM 3.1 mmol/L (3.5-5.1)
[2016-12-07] MEDS: ASPIRIN 81 MG ECTAB PO SCH (08:44)
[2016-12-07] MEDS: METOPROLOL TARTRATE 25 MG TAB PO SCH ×2 (08:44→19:35)
[2016-12-07] MEDS: CHOLECALCIFEROL 1000 INTER.UNIT TAB PO SCH (08:44)
[2016-12-07] MEDS: CEROVITE ADV FORMULA TAB PO SCH (08:45)
[2016-12-07] MEDS: FUROSEMIDE INJ 40 MG in SYRINGE 0 ML IV SCH ×2 (08:45→16:59)
[2016-12-07] MEDS: ASCORBIC ACID 500 MG TAB PO SCH (08:45)
[2016-12-07] MEDS: POTASSIUM CHLORIDE 20 MEQ TABCR PO SCH (08:45)
[2016-12-07] MEDS: BOOST BREEZE NUTRITION DRINK 1 BOX PO SCH (08:46)
[2016-12-07] MEDS: FERROUS SULFATE 325 MG TAB PO SCH ×3 (08:46→16:56)
[2016-12-07] MEDS: INSULIN ASPART 100 UNITS/ML 3 ML PEN SC SCH ×4 (08:48→20:21)
[2016-12-07] MEDS ORDERED: POTASSIUM CHLORIDE 20 MEQ TABCR PO ONE (10:45)
--- NOTE | 2016-12-07 13:46 | Pulmonary Consultation ---
History General Date of Service: Dec 07, 2016. Stated Complaint: Pe, Volume Overload HPI Patient is an 86 yo male with history of DM2, Afib, CAD, Rheumatoid arthritis, Hx septic left knee, Hx toe amputation due to gangrene, CKD Stage III, Rheumatoid arthritis, and aortic stenosis. The patient preseneted to [facility] from [facility] rehab facility with concern of fluid overload. The patient has been admitted multiple times recently for infections. He was receiving IV Zosyn at [facility] for concerns of wound infection/osteomyelitis. He began to have increasing SOB over the past couple of weaks. He denies cough. He feels that he has had problems taking a deep breath. He denies chest pain, tightness, or wheezing. He is typically not on supplemental O2 at rehab. Since admission, the patient has had a CXR which showed increasing bibasilar consolidation and bilateral pleural effusions. Images viewed by me. Chest U/S yesterday showed b/l pleural effusions with R>L. Marked for thoracentesis. Images also viewed. Labs reviewed: WBC 4.08 Hgb 8.7 Creatinine 1.8, BUN 41 Na+ 140 K+ 3.1 Cl- 102 Bicarb 33 Albumin on admission was low at 2.2 Patient is currently on IV Lasix 40 mg BID, Klor-Con, Heparin, Zosyn. He is also on 4 L supplemental O2 via nasal cannula. SaO2 has been 96+%. RR increased to 25 early this morning, but otherwise has been stable. Historian: patient Onset: other (a few weeks ago- worsened prior to admission) Severity: moderate Review of Systems Constitutional: denies: chills, fever, weakness Eyes: denies: blurred vision ENT: denies: sore throat Cardiovascular: denies: chest pain, chest tightness Respiratory: reports: shortness of breath, denies: cough, wheezing, sputum production Gastrointestinal: denies: abdominal pain, constipation, diarrhea, nausea Musculoskeletal: reports: other (b/l LE edema on and off, toe amputation hx ) Neurologic: denies: headache All Other Symptoms All Other Systems: Reviewed and Negative Past Medical History Past Medical History: Medical Problems: (1) Aortic stenosis (2) Atrial fibrillation (3) Carotid arterial disease (4) CKD (chronic kidney disease), stage III (5) Diabetes mellitus, type 2 (6) Diabetic peripheral neuropathy associated with type 2 diabetes mellitus (7) Dyslipidemia (8) History of adenomatous polyp of colon (9) History of diabetic ulcer of foot (10) Hypertension (11) Peripheral vascular disease (12) Rheumatoid arthritis (13) Septic joint of left knee joint (14) Systolic and diastolic CHF, chronic (15) Volume overload Surgical Problems: (1) Status post amputation of toe of left foot (2) Status post amputation of toe of right foot (3) Status post aortic valve replacement with bioprosthetic valve (4) Status post cataract extraction (5) Status post cholecystectomy (6) Status post coronary artery bypass grafting Family History Cancer BROTHER SISTER Coronary artery disease FATHER Kidney disease BROTHER Social History Hx Tobacco Use In Past Year?: No (gera 1969) Smoking Status: Former Smoker Housing status: [facility] Immunizations History of Influenza Vaccine: Yes Influenza Vaccine Date: Feb 06, 2016 History of Tetanus Vaccine?: Yes Tetanus Immunization Date: May 22, 2009 History of Pneumococcal: Yes Pneumococcal Date: Feb 06, 2016 History of MDRO History of MDRO: No Allergies Coded Allergies: HERMAN Inhibitors (Verified Allergy, Intermediate, UNKNOWN, 11/05/16) Lisinopril (Verified Adverse Reaction, Unknown, COUGHING, 11/05/16) Current Medications Reported Home Medications Medications Dose Route/Sig Max Daily Dose Days Date Category Dose Instructions [Protein Liquid] 30 Ml PO DAILY 12/06/16 Reported Novolog Flexpen (Insulin Aspart) 100 Units/Ml Inj SQ ACHS 12/06/16 Reported SSI Vitamin C (Ascorbic Acid) 500 Mg Cap 500 Mg PO DAILY 12/06/16 Reported Furosemide 20 Mg Tab 2 Mg PO DAILY PRN 30 11/11/16 Rx Extra dose in afternoon or evening PRN for SOB or worsening edema. Zosyn (Piperacillin Sodium-Tazobactam) 1 Rosi Rosi 3.375 Gm IV Q8 35 11/11/16 Rx Stop date 12/17/16. Heparin Sodium (Heparin Sod (Porcine)) 5,000 Unit/0.5 Ml Inj 5,000 Unit SQ Q12 30 11/11/16 Rx May discontinue when ambulatory. Klor-Con M20 (Potassium Chloride) 20 Meq Tabcr 20 Meq PO DAILY 30 11/11/16 Rx Procrit (Epoetin Davian) 10,000 Units Inj 10,000 Units SQ Q 2 WKS 30 11/11/16 Reported Last dose at [facility] 11/10/16. Folvite (Folic Acid) 1 Mg Tab 1 Mg PO QAM 09/19/16 Reported Lantus (Insulin Glargine) 100 Unit/Ml Inj 10 Units SC HS 09/19/16 Reported Vitamin D3 (Cholecalciferol) 2,000 Unit Tab 2,000 Units PO QAM 90 09/19/16 Reported Mvi With Minerals (Multivitamins/Minerals) Tab 1 Tab PO QAM 09/19/16 Reported Lasix (Furosemide) 20 Mg Tab 20 Mg PO BID 09/19/16 Reported Kp Ferrous Sulfate (Ferrous Sulfate) 325 Mg Tab 1 Tab PO TID 09/19/16 Reported Lopressor (Metoprolol Tartrate) 25 Mg Tab 25 Mg PO BID 08/20/16 Reported Ecotrin Or Generic (Aspirin) 81 Mg Tab 81 Mg PO QAM 08/20/16 Reported Physical Physical Exam Vital Signs: Date Time Temp Pulse Resp B/P (MAP) Pulse Ox O2 Delivery O2 Flow Rate FiO2 12/07/16 12:56 71 15 136/65 (88) 100 Nasal Cannula 4.0 12/07/16 12:00 Nasal Cannula 12/07/16 11:23 36.4 12/07/16 10:33 100 Nasal Cannula 4.0 12/07/16 08:00 Nasal Cannula 12/07/16 07:58 76 20 124/74 (91) 99 12/07/16 04:00 Room Air 12/07/16 02:41 36.4 80 25 120/81 (94) 96 Nasal Cannula 4.0 12/07/16 00:27 36.4 78 18 148/74 (98) 98 Nasal Cannula 4.0 12/07/16 00:00 Room Air 12/06/16 20:06 36.5 85 20 127/72 (90) 98 Nasal Cannula 2.0 12/06/16 20:00 Room Air 12/06/16 16:08 36.5 85 20 115/75 (88) 100 Nasal Cannula 2.0 12/06/16 16:00 Room Air General Appearance: WD/WN, NO APPARENT DISTRESS Head: NORMOCEPHALIC Eyes: NO DISCHARGE, EOMI, SCLERAE NORMAL ENT: other (slightly [place]) Neck: TRACHEA MIDLINE, NO STRIDOR Respiratory: other (decrease BS at bilateral bases. ) Cardiovasular: REGULAR RATE/RHYTHM, NO MURMUR Abdomen: NORMAL BOWEL SOUNDS Back: other (Note kaiser for thoracentesis) Lower Extremities: other (Trace to 1+ pitting edema RLE. Trace edema LLE) Neuro: ALERT, NORMAL SPEECH Psychiatric: NORMAL AFFECT Diagnostics Labs Results Past 24 Hours Test 12/06/16 16:36 12/06/16 19:25 12/06/16 20:39 12/07/16 01:07 Range/Units Bedside Glucose 163 207 70-99 mg/dl Troponin I 0.028 0.034 0-0.045 ng/ml Test 12/07/16 06:15 12/07/16 06:57 12/07/16 10:56 Range/Units White Blood Count 4.08 4.8-10.8 K/uL Red Blood Count 3.08 4.7-6.1 M/uL Hemoglobin 8.7 14.0-18.0 g/dL Hematocrit 28.4 42-52 % Mean Corpuscular Volume 92.2 80-100 fL Mean Corpuscular Hemoglobin 28.2 25-34 pg Mean Corpuscular Hemoglobin Concent 30.6 32-36 g/dl RDW Standard Deviation 73.1 36.4-46.3 fL RDW Coefficient of Variation 21.6 11.5-14.5 % Platelet Count 108 130-400 K/uL Mean Platelet Volume 10.3 7.4-10.4 fL Sodium Level 140 136-145 mmol/L Potassium Level 3.1 3.5-5.1 mmol/L Chloride Level 102 98-107 mmol/L Carbon Dioxide Level 33 21-32 mmol/L Anion Gap 5.0 3-11 mmol/L Blood Urea Nitrogen 41 7-18 mg/dl Creatinine 1.80 0.60-1.40 mg/dl Est Creatinine Clear Calc Drug Dose 29.3 ml/min Estimated GFR () 38.1 Estimated GFR (Non- 32.9 BUN/Creatinine Ratio 22.9 10-20 Random Glucose 103 70-99 mg/dl Calcium Level 8.3 8.5-10.1 mg/dl Magnesium Level 2.2 1.8-2.4 mg/dl Bedside Glucose 106 204 70-99 mg/dl Diagnostic Radiology BILATERAL CHEST ULTRASOUND TO EVALUATE PLEURAL EFFUSIONS CLINICAL HISTORY: Bilateral pleural effusions. COMPARISON STUDY: Chest radiograph performed earlier today. FINDINGS: Sonography of the right hemithorax revealed a large right pleural effusion with estimated volume of 1565 cc. A suitable right rib interspace was marked for possible subsequent thoracentesis. Sonography of the left hemithorax revealed a large left pleural effusion with estimated volume of 1209 cc. Suitable left rib interspace was marked for possible subsequent thoracentesis. IMPRESSION: Large bilateral pleural effusions, right larger than left. Bilateral chest wall kaiser placed for possible subsequent thoracenteses. Echo 09/20/16: Border[place] left ventricle dilatation, moderate to severe inferior and lateral wall hypokinesis, EF 35-40%, Prosthetic aortic valve EKG Afbi with probable PVC's, interior infarct of undetermined age, poor R wave progression. Viewed. Impression Assessment and Plan Acute on chronic Systolic CHF Bilateral Pleural Effusions DM2 CAD Afib CKD Stage 3 Osteomyelitis -Patient with large, bilateral pleural effusions. Patient currently receiving aggressive diuresis with IV Lasix. Fluid balance from admission is -1515 mL. Continue negative fluid balance if able. -Patient is improving slowly, but bilateral pleural effusions are large in size. Feel that this patient may benefit from thoracentesis- will discuss with Dr. Jang -Continues IV Zosyn- to be completed on 12/17 -Creatinine elevated to 1.8. Monitoring. Strict I&O's -Continue nasal cannula O2 supplementation PRN to keep SaO2 >88% Pulm will follow. Patient was seen and examined and case reviewed. I do agree that performing a thoracentesis could improve the patient's overall respiratory status but at this time I do not believe he is cognizant to sign off on the consent form. Due to this I did speak to the daughter about the thoracentesis. After speaking to her brother she is to come in this evening and possibly signed the consent form at that time along with her father. I've informed the staff about the situation. If the patient the daughter and the son would like to move forward we will perform thoracentesis tomorrow on 12/08/2016.
--- NOTE | 2016-12-07 18:57 | CARDIOLOGY CONSULTATION ---
DATE OF CONSULTATION: 12/07/2016 REFERRING PHYSICIAN: Dr. David Solitario. REASON FOR CONSULTATION: Congestive heart failure. HISTORY OF PRESENT ILLNESS: Mr. Flores is a complex 86-year-old gentleman who is well known to the undersigned. Recent history significant for multiple admissions over the past four months secondary to PVD, osteomyelitis, septic arthritis, severe sepsis related to pneumonia, congestive heart failure. Recently evaluated in the cardiology clinic on December 03 and found to be volume overloaded. At that time, his furosemide had been increased to 20 mg twice daily. He had lost approximately 1 pound over a 24-hour period. It was recommended at that time that he continue b.i.d., furosemide with a followup basic metabolic panel this week as well as close cardiology followup to consider intravenous Lasix administration. The patient developed progressive dyspnea on exertion at [facility]. He was transferred to the Emergency Department secondary to congestive heart failure. The patient received 20 mg of intravenous furosemide yesterday as well as 40 mg of intravenous furosemide this morning. His total urine output was approximately 1500 mL. He continues to be dyspneic at rest. Orthopnea is noted. His respiratory symptoms are changed from his recent evaluation approximately 5 days ago where he has no significant physical sign with lower extremity edema. Edema has improved with diuretic therapy; however, he remained short of breath. Denies chest discomfort, palpitations, lightheadedness, dizziness, syncope or near syncope. Telemetry confirms atrial fibrillation. The patient has not been anticoagulated in the past due to chronic anemia, fall risk, recurrent epistaxis. Recent echocardiograms performed from over the summer demonstrated decline in the left ventricular systolic function. REVIEW OF SYSTEMS: The pertinent positive noted above, a comprehensive 10-system review is otherwise negative. PAST MEDICAL HISTORY: 1. Chronic systolic heart failure. 2. Ischemic cardiomyopathy. 3. Chronic atrial fibrillation. 4. Peripheral vascular disease and osteomyelitis status post recent left-sided 3rd toe amputation. 5. Aortic valve disease status post bioprosthetic aortic valve replacement in 2007 with a #23 [place] #2. 6. Chronic coronary artery disease with prior coronary artery bypass, ischemic cardiomyopathy, most recent ejection fraction 35-40%. 7. Moderate mitral insufficiency. 8. Diabetes type 2. 9. Dyslipidemia. 10. Chronic kidney disease stage III to IV. 11. Hypertension. 12. Mild bilateral carotid vascular disease. 13. Rheumatoid arthritis. PAST SURGICAL HISTORY: 1. Recent left 3rd toe amputation. 2. History of second toe amputation on the right. 3. Coronary artery bypass grafting with aortic valve replacement. 4. Cataract extraction. 5. Cholecystectomy. FAMILY HISTORY: Negative for premature CAD or sudden cardiac ; however, noncontributory given patient's age. SOCIAL HISTORY: Former tobacco abuse. Lives in a longterm. ALLERGIES: HERMAN INHIBITORS. HOME MEDICATIONS: 1. Aspirin 81 mg daily. 2. Procrit 10,000 units every 2 weeks. 3. Ferrous sulfate 3 times daily. 4. Folic acid daily. 5. Furosemide 20 mg twice daily. 6. SubQ heparin 5000 units every 12 hours. 7. NovoLog FlexPen a.c. and at bedtime. 8. Lantus 10 units at bedtime. 9. Lopressor 25 mg twice daily. 10. Multivitamin daily. 11. Zosyn 3.375 grams IV q. 8. 12. Potassium chloride 20 mEq daily. ELECTROCARDIOGRAM ON ADMISSION: Atrial fibrillation, heart rate of 82 beats per minute, left ventricular hypertrophy, ventricular couplets, poor R-wave progression, age indeterminate inferior infarct. LABORATORY DATA: Sodium 140, potassium 3.1, chloride 102, CO2 is 33, BUN is 41, creatinine is 1.80. White blood cell count 4.08, hemoglobin is 8.7, platelet count is 108. Troponin is 0.034. IMAGING DATA: Chest x-ray demonstrates large bilateral pleural effusions. Chest ultrasound demonstrates 1200 mL of the left hemithorax, 1565 mL of the right hemithorax. Telemetry demonstrates atrial fibrillation with controlled ventricular response. PHYSICAL EXAMINATION: VITAL SIGNS: Temperature 36.4 degrees centigrade, pulse is 76 beats per minute, respiratory rate is 20 breaths per minute, blood pressure 124/74. SaO2 is 100% on 4 liters. GENERAL: NAD, chronically ill, mild dyspnea at rest. THROAT: His mucous membranes are moist. No scleral icterus. Conjunctivae pink. NECK: Supple with elevated jugular venous distension. HEART: Irregular with a normal S1 and S2. There is no murmur, rub or gallop appreciated. LUNGS: Demonstrate diminished breath sounds at the bases bilaterally. There are crackles at the bases as well. No rhonchi or wheeze. ABDOMEN: Soft, nontender. No rebound or guarding. EXTREMITIES: Warm and dry. There is +1 to 2 pedal and ankle edema bilaterally. NEUROLOGIC: Demonstrates no focal motor deficit. FINAL IMPRESSION: 1. Acute decompensated systolic heart failure with large bilateral pleural effusions. 2. Cardiorenal syndrome. 3. Chronic rate controlled atrial fibrillation. 4. Peripheral vascular disease and left lower extremity osteomyelitis status post left 3rd toe amputation. 5. Aortic valve disease with history of bioprosthetic aortic valve replacement in 2007. 6. Chronic ischemic heart disease with ischemic cardiomyopathy, ejection fraction 35-40%, and coronary bypass grafting in 2008. 7. Moderate mitral insufficiency. 8. Diabetes type 2. PLAN AND RECOMMENDATIONS: Lasix will be titrated to 40 mg intravenous twice daily. The patient has produced approximately 1500 mL of urine over the past 12 hours. Recommend consultation with thoracic medicine and consider thoracentesis for symptomatic relief of patient's dyspnea. Given underlying renal disease and cardiorenal syndrome, it will be difficult to improve his volume status with diuretic therapy alone. Antibiotics will be managed per internal medicine and infectious disease recommendations. Other cardiovascular medications including beta-norma and aspirin will be continued as previously ordered. I will continue to follow closely during hospitalization. I will not repeat his resting echo at this time as I do not believe this will car changer. Thank you for allowing me to take part in the care of your patient. KAYCEE
[2016-12-07] MEDS ORDERED: POTASSIUM CHLR 10 MEQ / WTR 10 MEQ in PREMIXED WATER 100 ML IV STA (19:02)
[2016-12-07] MEDS ORDERED: POTASSIUM CHLORIDE 20 MEQ TABCR PO STA (19:02)
--- NOTE | 2016-12-07 19:08 | Progress Note ---
Internal Med Progress Note Date of Service: Dec 07, 2016. Provider Documentation: SUBJECTIVE: awake and cooperative on exam. reports difficulty with taking deep breaths because he feels congested. denies chest pain. is able to make urine OBJECTIVE: General Appearance: no apparent distress Head: normocephalic Eyes: normal inspection, sclerae normal ENT: hearing grossly normal Neck: supple Respiratory/Chest: no respiratory distress, + decreased breath sounds especially at lower lung bases, able to speak in full sentences, noted orthopnea with minimal decrease of the HOB Cardiovascular: regular rate, rhythm Abdomen/GI: normal bowel sounds, non tender, soft, + distended Extremities: normal inspection, no calf tenderness, +3 pitting edema BLLE extending up to the thighs Neurologic/Psych: no motor/sensory deficits, alert, oriented x 3 Skin: left 5th toe with eschar; small amount of drainage between 5th and 4th toes; ulcer noted on the plantar surface of the left foot without erythema or drainage ASSESSMENT & PLAN: 86 year old male who was sent to the hospital as a direct admission from [facility] for volume overload. Patient has been admitted to [facility] three times recently. First was 08/20 - 09/04 for PAD with left foot gangrene and left knee septic arthritis. Patient underwent endarterectomy of the left leg and also left knee arthroscopic irrigation and debridement. Synovial fluid was positive for micrococcus species. Patient was discharged on IV Dapto and Ertapenem for 4 weeks of therapy. Patient was then readmitted 09/19 - 09/27 for severe sepsis likely due to pneumonia. While admitted, Ertapenem was changed to Zosyn and patient completed 7 days of therapy. Due to the left knee septic arthritis and gangrene left toe infection, patient was discharged on IV Dapto to complete the initial 4 weeks of therapy. On 10/19, patient underwent left 3rd toe amputation by Dr. Jefferson. Post operatively, the patient developed increased redness and drainage and was readmitted to [facility] 11/05 - 11/11 for wound infection / ongoing osteomyelitis. Wound culture grew E. Coli and Pseudomonas and patient was discharged on Zosyn to complete treatment on 12/17. ACUTE ON CHRONIC SYSTOLIC CHF, ISCHEMIC CARDIOMYOPATHY echo 09/2016 - EF 35-40%; BL PLEURAL EFFUSIONS - directly admitted to [facility] from [facility] - patient presenting with increasing shortness of breath and lower extremity edema x 2 weeks despite outpatient titration of diuretics - exacerbation possibly due to receiving IV antibiotics for osteomyelitis - home diuretic dose - 20mg PO BID with an additional tab daily PRN - Lasix IV BID as inpatient - strict I/Os, matos, daily weights, low Na+ diet - cardiology evaluated the patient today on 12/07/16 and requesting pulmonary to try to do thoracentesis (Sonography of the right hemithorax revealed a large right pleural effusion with estimated volume of 1565 cc. Sonography of the left hemithorax revealed a large left pleural effusion with estimated volume of 1209 cc) CAD - stable, no reports of chest pain - continue ASA and beta norma ATRIAL FIBRILLATION - rate controlled on beta norma, will continue - Coumadin stopped due to epistaxis and unsteady gait Hypokalemia 3.1 -will give Potassium stat doses PO and IV and place on standing oral potassium as patient receiving increased Lasix CKD STAGE III - continue to monitor, avoid nephrotoxic agents when able, diuresis may increase creatinine LEFT 3RD TOE AMPUTATION SITE OSTEOMYELITIS, LEFT 5TH TOE ESCHAR, LEFT PLANTAR SURFACE ULCER - currently receiving IV Zosyn - to complete course on 12/17 - scheduled for left 5th amputation on 12/[address] Ahumada - continue IV Zosyn - wound care consult DM - hgb a1c 6.5 09/2016 - Lantus + SSI ANEMIA - chronic, hgb at baseline - likely anemia of chronic disease - no signs of bleeding Stg II Sacral Decub-POA, Optifoam applied, EHOB mattress ordered. Wound care consulted. DVT PROPHYLAXIS - SQ Heparin CODE STATUS - Patient is a DNR Vital Signs: Date Time Temp Pulse Resp B/P (MAP) Pulse Ox O2 Delivery O2 Flow Rate FiO2 12/07/16 16:28 36.5 12/07/16 16:11 36.4 82 17 138/78 (98) 100 Nasal Cannula 4.0 12/07/16 16:00 Room Air 12/07/16 15:45 77 18 138/77 (97) 96 Nasal Cannula 4.0 12/07/16 14:27 Nasal Cannula 4.0 12/07/16 12:56 71 15 136/65 (88) 100 Nasal Cannula 4.0 12/07/16 12:00 Nasal Cannula 12/07/16 11:23 36.4 12/07/16 10:33 100 Nasal Cannula 4.0 12/07/16 08:00 Nasal Cannula 12/07/16 07:58 76 20 124/74 (91) 99 12/07/16 04:00 Room Air 12/07/16 02:41 36.4 80 25 120/81 (94) 96 Nasal Cannula 4.0 12/07/16 00:27 36.4 78 18 148/74 (98) 98 Nasal Cannula 4.0 12/07/16 00:00 Room Air 12/06/16 20:06 36.5 85 20 127/72 (90) 98 Nasal Cannula 2.0 12/06/16 20:00 Room Air Lab Results: Results Past 24 Hours Test 12/06/16 19:25 12/06/16 20:39 12/07/16 01:07 12/07/16 06:15 Range/Units Troponin I 0.028 0.034 0-0.045 ng/ml Bedside Glucose 207 70-99 mg/dl White Blood Count 4.08 4.8-10.8 K/uL Red Blood Count 3.08 4.7-6.1 M/uL Hemoglobin 8.7 14.0-18.0 g/dL Hematocrit 28.4 42-52 % Mean Corpuscular Volume 92.2 80-100 fL Mean Corpuscular Hemoglobin 28.2 25-34 pg Mean Corpuscular Hemoglobin Concent 30.6 32-36 g/dl RDW Standard Deviation 73.1 36.4-46.3 fL RDW Coefficient of Variation 21.6 11.5-14.5 % Platelet Count 108 130-400 K/uL Mean Platelet Volume 10.3 7.4-10.4 fL Sodium Level 140 136-145 mmol/L Potassium Level 3.1 3.5-5.1 mmol/L Chloride Level 102 98-107 mmol/L Carbon Dioxide Level 33 21-32 mmol/L Anion Gap 5.0 3-11 mmol/L Blood Urea Nitrogen 41 7-18 mg/dl Creatinine 1.80 0.60-1.40 mg/dl Est Creatinine Clear Calc Drug Dose 29.3 ml/min Estimated GFR () 38.1 Estimated GFR (Non- 32.9 BUN/Creatinine Ratio 22.9 10-20 Random Glucose 103 70-99 mg/dl Calcium Level 8.3 8.5-10.1 mg/dl Magnesium Level 2.2 1.8-2.4 mg/dl Test 12/07/16 06:57 12/07/16 10:56 12/07/16 16:23 Range/Units Bedside Glucose 106 204 141 70-99 mg/dl
[2016-12-07] MEDS: INSULIN GLARGINE SOLOSTAR 100 UNITS/ML 3 ML PEN SC SCH (20:33)
[2016-12-07] MEDS ORDERED: POTASSIUM CHLORIDE 20 MEQ TABCR PO SCH (21:00)
[2016-12-08] VITALS (8 sets, daily range): BP systolic 104–130; BP diastolic 70–90; PULSE 67–94; TEMP 36.4–37.1; O2SAT 95–100
[2016-12-08] MEDS: PIPERACILL/TAZOBAC IV 3.375 GM in DEXTROSE 5% 100ML IV SCH ×4 (00:22→23:52)
[2016-12-08] MEDS: HEPARIN SOD 5000 UNIT/0.5 ML CARP SQ SCH ×3 (06:07→21:03)
[2016-12-08 07:14] LABS: BASO % 0.2 %; BASO ABS # 0.01 K/uL (0-0.2); EOS % 2.2 %; HEMATOCRIT 30.6 % (42-52); IG% 0.2 %; LYMPH % 8.3 %; LYMPH ABS # 0.38 K/uL (1.2-3.4); MEAN CELL VOLUME 92.7 fL (80-100); MEAN CORPUSCULAR HEMOGLOBIN 28.2 pg (25-34); MEAN CORPUSCULAR HGB CONC 30.4 g/dl (32-36); MEAN PLATELET VOLUME 10.6 fL (7.4-10.4); MONO % 12.1 %; PLATELET COUNT 125 K/uL (130-400); WHITE BLOOD COUNT 4.56 K/uL (4.8-10.8)
[2016-12-08] MEDS: METOPROLOL TARTRATE 25 MG TAB PO SCH ×2 (07:32→21:05)
[2016-12-08] MEDS: FERROUS SULFATE 325 MG TAB PO SCH ×3 (07:32→18:02)
[2016-12-08] MEDS: ASPIRIN 81 MG ECTAB PO SCH (07:32)
[2016-12-08] MEDS: CEROVITE ADV FORMULA TAB PO SCH (07:32)
[2016-12-08] MEDS: CHOLECALCIFEROL 1000 INTER.UNIT TAB PO SCH (07:32)
[2016-12-08] MEDS: ASCORBIC ACID 500 MG TAB PO SCH (07:32)
[2016-12-08] MEDS: POTASSIUM CHLORIDE 20 MEQ TABCR PO SCH (07:33)
[2016-12-08] MEDS: FUROSEMIDE INJ 40 MG in SYRINGE 0 ML IV SCH ×2 (07:33→18:02)
[2016-12-08] MEDS: BOOST BREEZE NUTRITION DRINK 1 BOX PO SCH (07:34)
[2016-12-08 07:40] LABS: ANISOCYTOSIS PRESENT; COMPLETE YES; HYPOCHROMIA PRESENT
[2016-12-08 07:50] LABS: ALB/GLOB RATIO 0.4 (0.9-2); BUN/CREATININE RATIO 22.5 (10-20); CALCIUM 9.1 mg/dl (8.5-10.1); CREATININE 1.6 mg/dl (0.60-1.40); MAGNESIUM 2.2 mg/dl (1.8-2.4); POTASSIUM 3.7 mmol/L (3.5-5.1)
[2016-12-08] MEDS: INSULIN ASPART 100 UNITS/ML 3 ML PEN SC SCH ×4 (08:53→21:02)
[2016-12-08] MEDS ORDERED: NURSING VERBAL MED ORDER ONE (09:00)
[2016-12-08] MEDS ORDERED: POTASSIUM CHLORIDE 10 MEQ TABCR PO STA (10:40)
--- NOTE | 2016-12-08 10:40 | Cardiology Follow-Up ---
Subjective General Date of Service: Dec 08, 2016. Pt evaluation today including: conversation w/ patient, physical exam, chart review, lab review, review of studies, review of inpatient medication list History of Present Illness The patient is a 86 year old male seen in follow-up. Respiratory status has improved. Scheduled for thoracentesis this a.m. Fluid balance is negative an additional 2 L over the past 24 hours. Denies chest discomfort or palpitations. Remains in atrial fibrillation on telemetry. Renal function improved. Allergies Coded Allergies: HERMAN Inhibitors (Verified Allergy, Intermediate, UNKNOWN, 11/05/16) Lisinopril (Verified Adverse Reaction, Unknown, COUGHING, 11/05/16) Social History Smoking Status: Former Smoker Hx Tobacco Use In Past Year?: No (gera 1970) Hx Alcohol Use - Type And Amou: No Hx Substance Use - Type And Am: No Problem List Medical Problems: (1) Acute on chronic renal failure Status: Acute (2) Anemia Status: Acute (3) Cellulitis of left leg Status: Acute (4) CHF (congestive heart failure) Status: Acute (5) Hypoxia Status: Acute (6) Left-sided epistaxis Status: Acute (7) Pneumonia Status: Acute (8) Sepsis Status: Acute (9) Urinary retention Status: Acute Review of Systems Respiratory: + shortness of breath, + dyspnea on exertion, No cough, No sputum , No wheezing, No dyspnea at rest, No hemoptysis Cardiac: + edema, No chest pain, No orthopnea, No PND, No claudication, No palpitations Physical Exam Vital Signs Last Vital Signs Documentation Date Time Temp Pulse Resp B/P (MAP) Pulse Ox O2 Delivery O2 Flow Rate FiO2 12/08/16 08:00 Nasal Cannula 12/08/16 07:49 36.5 80 18 122/83 (96) 98 4.0 Physical Exam Constitutional: Level of Distress: chronically ill Head: normocephalic Lungs: Auscultation: decreased breath sounds, rales/crackles on the left, rales/ crackles on the right Cardiovascular: Heart Auscultation: normal S1, normal S2, I/ SCOTTY, irregular rate rhythm Peripheral Pulses: Radial Pulse: normal on the right Abdomen: Inspection & Palpation: soft, non-distended, no tenderness, guarding & rebound Extremities: no cyanosis, edema (1-2+ B/L LE edema) Neurologic: Cranial Nerves: grossly intact Assessment and Plan Assessment and Plan IMPRESSION: 1. Acute decompensated systolic heart failure with large bilateral pleural effusions. - improving with 2L diuresis over the past 24 hours - scheduled for thoracentesis 2. Cardiorenal syndrome - creatinine improved 3. Chronic rate controlled atrial fibrillation. 4. Peripheral vascular disease and left lower extremity osteomyelitis status post left 3rd toe amputation. 5. Aortic valve disease with history of bioprosthetic aortic valve replacement in 2007. 6. 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 7. Moderate mitral insufficiency. 8. Diabetes type 2. PLAN AND RECOMMENDATIONS: Continue IV diuresis. Follow fluid balance, GFR, electrolytes and daily weight. Will give an additional 20meq of KCL today. Thoracentesis today. Continue beta norma and other cardiovascular medications as previously ordered. Laboratory Results Last 24 Hours Test 12/07/16 10:56 12/07/16 16:23 12/07/16 19:45 12/08/16 06:44 Bedside Glucose 204 mg/dl 141 mg/dl 177 mg/dl White Blood Count 4.56 K/uL Red Blood Count 3.30 M/uL Hemoglobin 9.3 g/dL Hematocrit 30.6 % Mean Corpuscular Volume 92.7 fL Mean Corpuscular Hemoglobin 28.2 pg Mean Corpuscular Hemoglobin Concent 30.4 g/dl Platelet Count 125 K/uL Mean Platelet Volume 10.6 fL Neutrophils (%) (Auto) 77.0 % Lymphocytes (%) (Auto) 8.3 % Monocytes (%) (Auto) 12.1 % Eosinophils (%) (Auto) 2.2 % Basophils (%) (Auto) 0.2 % Neutrophils # (Auto) 3.51 K/uL Lymphocytes # (Auto) 0.38 K/uL Monocytes # (Auto) 0.55 K/uL Eosinophils # (Auto) 0.10 K/uL Basophils # (Auto) 0.01 K/uL RDW Standard Deviation 74.1 fL RDW Coefficient of Variation 21.7 % Immature Granulocyte % (Auto) 0.2 % Immature Granulocyte # (Auto) 0.01 K/uL Hypochromasia PRESENT Anisocytosis PRESENT Sodium Level 141 mmol/L Potassium Level 3.7 mmol/L Chloride Level 101 mmol/L Carbon Dioxide Level 33 mmol/L Anion Gap 7.0 mmol/L Blood Urea Nitrogen 36 mg/dl Creatinine 1.60 mg/dl Est Creatinine Clear Calc Drug Dose 33.0 ml/min Estimated GFR () 43.9 Estimated GFR (Non- 37.9 BUN/Creatinine Ratio 22.5 Random Glucose 73 mg/dl Calcium Level 9.1 mg/dl Magnesium Level 2.2 mg/dl Total Bilirubin 0.5 mg/dl Aspartate Amino Transf (AST/SGOT) 34 U/L Alanine Aminotransferase (ALT/SGPT) 31 U/L Alkaline Phosphatase 65 U/L Total Protein 8.0 gm/dl Albumin 2.1 gm/dl Globulin 5.9 gm/dl Albumin/Globulin Ratio 0.4 Test 12/08/16 06:59 Bedside Glucose 77 mg/dl
--- NOTE | 2016-12-08 11:05 | Procedure Note ---
Procedure Note Date of Service Dec 08, 2016. Procedure Note Procedures: Right sided Thoracentesis Consent: obtained via the patient and placed into the chart Pre-Procedural Dx: Bilateral pleural effusions most likely secondary to CHF exacerbation Post-Procedural Dx: Bilateral pleural effusions most likely secondary to CHF exacerbation Analgesia: 8cc of 1% Liquid Lidocaine Procedure: The patient was placed in an upright position and thoracic US was used to select a spot for the procedure. A spot along the posterior axillary line was marked in the 7th intercostal space. The patient was then draped and prepped in a sterile fashion. A modified Seldinger technique was then used for catheter placement. Flowing this approximately 1400 cc of dark yellow pleural fluid was removed. The patient was then cleaned and placed at a 60 degree angle in the bed were the US was used to evaluate for possible pneumothorax. The US showed good lung sliding and starry night sign. EBL: None Complications: None
--- NOTE | 2016-12-08 11:31 | Pulmonology Progress Note ---
Pulmonary Progress Note Date of Service Dec 08, 2016. Attending Dr. Jang Subjective Patient is feeling improved this morning. Right-sided thoracentesis completed by Dr. Jang. See Procedure note for details. I spoke with patient this morning and spoke with his daughter on the phone again. Agreed to procedure. Assessment & Plan Bilateral pleural effusions: Patient did well post thoracentesis of 1.4 L. We will reevaluate the patient's left side tomorrow and determine at that time if the thoracentesis delivered the appropriate affect. Data Medications: Current Inpatient Medications Medications (Trade) Dose Ordered Sig/Rosemarie Route Start Time Stop Time Status Last Admin Dose Admin Acetaminophen (Tylenol Tab) 650 mg Q4H PRN PO 12/06/16 12:45 01/05/17 12:44 Ondansetron HCl (Zofran Inj) 4 mg Q6H PRN IV 12/06/16 12:45 01/05/17 12:44 Enteral Nutritional Formula (Boost Breeze Nutritional Drink) 1 box DAILY PO 12/07/16 09:00 01/06/17 08:59 12/08/16 07:34 1 BOX Aspirin (Ecotrin Tab) 81 mg QAM PO 12/07/16 09:00 01/06/17 08:59 12/08/16 07:32 81 MG Folic Acid (Folvite Tab) 1 mg QAM PO 12/07/16 09:00 01/06/17 08:59 12/08/16 07:32 1 MG Insulin Glargine (Lantus Solostar Pen) 10 units HS SC 12/06/16 21:00 01/05/17 20:59 12/07/16 20:33 10 UNITS Metoprolol Tartrate (Lopressor Tab) 25 mg BID PO 12/06/16 21:00 01/05/17 20:59 12/08/16 07:32 25 MG Multivitamins/ Minerals (Multivitamin W/ Minerals Tab) 1 tab QAM PO 12/07/16 09:00 01/06/17 08:59 12/08/16 07:32 1 TAB Potassium Chloride (Klor-Con Tab) 20 meq DAILY PO 12/07/16 09:00 01/06/17 08:59 12/08/16 07:33 20 MEQ Ascorbic Acid (Vitamin C Tab) 500 mg DAILY PO 12/07/16 09:00 01/06/17 08:59 12/08/16 07:32 500 MG Cholecalciferol (Vitamin D Tab) 2,000 inter.unit QAM PO 12/07/16 09:00 01/06/17 08:59 12/08/16 07:32 2,000 INTER.UNIT Ferrous Sulfate (Feosol Tab) 325 mg TIDM PO 12/06/16 16:45 01/05/17 16:44 12/08/16 07:32 325 MG Insulin Aspart (novoLOG ASPART) SLIDING SCALE If C... ACHS SC 12/06/16 16:15 01/05/17 16:14 12/08/16 08:53 1 UNITS Glucose (Glucose 40% Gel) 15-30 GRAMS 15 GRAMS... UD PRN PO 12/06/16 13:30 01/05/17 13:29 Glucose (Glucose Chew Tab) 4-8 Tablets 4 Tabl... UD PRN PO 12/06/16 13:30 01/05/17 13:29 Dextrose (Dextrose 50% 50ML Syringe) 25-50ML OF 50% DW IV FOR... UD PRN IV 12/06/16 13:30 01/05/17 13:29 Glucagon (Glucagon Inj) 1 mg UD PRN SQ 12/06/16 13:30 01/05/17 13:29 Piperacillin Sod/ Tazobactam Sod (Consult) 1 ea UD PRN N/A 12/06/16 13:30 12/17/16 22:00 Piperacillin Sod/ Tazobactam Sod 3.375 gm/Dextrose 115 ml @ 28.75 mls/ hr Q8H IV 12/06/16 16:00 12/17/16 23:59 12/08/16 08:47 28.75 MLS/HR Heparin Sodium (Porcine) (Heparin 10 Unit/ ml 5 ml Flush) 5 ml PRN PRN FLUSH 12/06/16 22:15 01/05/17 22:14 12/08/16 04:59 5 ML Heparin Sodium (Porcine) (Heparin Sq 5000 Unit/0.5ml) 5,000 unit Q8 SQ 12/07/16 06:00 01/06/17 05:59 12/08/16 06:07 5,000 UNIT Furosemide 40 mg/ Syringe 4 ml @ 4 mls/min BID17 IV 12/07/16 17:00 01/06/17 16:59 12/08/16 07:33 4 MLS/MIN Vital Signs: Date Time Temp Pulse Resp B/P (MAP) Pulse Ox O2 Delivery O2 Flow Rate FiO2 12/08/16 10:57 36.4 74 18 108/70 (83) 99 4.0 12/08/16 08:00 Nasal Cannula 12/08/16 07:49 36.5 80 18 122/83 (96) 98 4.0 12/08/16 04:00 Nasal Cannula 4.0 12/08/16 03:25 36.4 91 18 121/90 (100) 95 Room Air 12/08/16 00:51 37.1 82 18 122/72 (89) 98 12/07/16 23:59 Nasal Cannula 4.0 12/07/16 20:19 36.5 67 18 116/68 (84) 100 Nasal Cannula 4.0 12/07/16 20:00 Room Air 12/07/16 16:28 36.5 12/07/16 16:11 36.4 82 17 138/78 (98) 100 Nasal Cannula 4.0 12/07/16 16:00 Room Air 12/07/16 15:45 77 18 138/77 (97) 96 Nasal Cannula 4.0 12/07/16 14:27 Nasal Cannula 4.0 12/07/16 12:56 71 15 136/65 (88) 100 Nasal Cannula 4.0 12/07/16 12:00 Nasal Cannula Laboratory Results: Last 24 Hours Test 12/07/16 16:23 12/07/16 19:45 12/08/16 06:44 12/08/16 06:59 Bedside Glucose 141 mg/dl 177 mg/dl 77 mg/dl White Blood Count 4.56 K/uL Red Blood Count 3.30 M/uL Hemoglobin 9.3 g/dL Hematocrit 30.6 % Mean Corpuscular Volume 92.7 fL Mean Corpuscular Hemoglobin 28.2 pg Mean Corpuscular Hemoglobin Concent 30.4 g/dl Platelet Count 125 K/uL Mean Platelet Volume 10.6 fL Neutrophils (%) (Auto) 77.0 % Lymphocytes (%) (Auto) 8.3 % Monocytes (%) (Auto) 12.1 % Eosinophils (%) (Auto) 2.2 % Basophils (%) (Auto) 0.2 % Neutrophils # (Auto) 3.51 K/uL Lymphocytes # (Auto) 0.38 K/uL Monocytes # (Auto) 0.55 K/uL Eosinophils # (Auto) 0.10 K/uL Basophils # (Auto) 0.01 K/uL RDW Standard Deviation 74.1 fL RDW Coefficient of Variation 21.7 % Immature Granulocyte % (Auto) 0.2 % Immature Granulocyte # (Auto) 0.01 K/uL Hypochromasia PRESENT Anisocytosis PRESENT Sodium Level 141 mmol/L Potassium Level 3.7 mmol/L Chloride Level 101 mmol/L Carbon Dioxide Level 33 mmol/L Anion Gap 7.0 mmol/L Blood Urea Nitrogen 36 mg/dl Creatinine 1.60 mg/dl Est Creatinine Clear Calc Drug Dose 33.0 ml/min Estimated GFR () 43.9 Estimated GFR (Non- 37.9 BUN/Creatinine Ratio 22.5 Random Glucose 73 mg/dl Calcium Level 9.1 mg/dl Magnesium Level 2.2 mg/dl Total Bilirubin 0.5 mg/dl Aspartate Amino Transf (AST/SGOT) 34 U/L Alanine Aminotransferase (ALT/SGPT) 31 U/L Alkaline Phosphatase 65 U/L Total Protein 8.0 gm/dl Albumin 2.1 gm/dl Globulin 5.9 gm/dl Albumin/Globulin Ratio 0.4
--- NOTE | 2016-12-08 13:02 | Progress Note ---
Internal Med Progress Note Date of Service: Dec 08, 2016. Provider Documentation: SUBJECTIVE: s/p thoracentesis today. patient breathing on nasal cannula. reports that after thoracentesis, he is breathing more comfortably. denies pain. OBJECTIVE: General Appearance: no apparent distress Head: normocephalic Eyes: normal inspection, sclerae normal ENT: hearing grossly normal Neck: supple Respiratory/Chest: no respiratory distress, improved lung sounds after thoracentesis compared to prior exam in the morning time Cardiovascular: regular rate, rhythm Abdomen/GI: normal bowel sounds, non tender, soft, + distended Extremities: normal inspection, no calf tenderness, +3 pitting edema in bilateral lower extremities Neurologic/Psych: no motor/sensory deficits, alert, oriented x 3 Skin: left 5th toe with eschar; small amount of drainage between 5th and 4th toes; ulcer noted on the plantar surface of the left foot without erythema or drainage ASSESSMENT & PLAN: 86 year old male who was sent to the hospital as a direct admission from [facility] for volume overload. Patient has been admitted to [facility] three times recently. First was 08/20 - 09/04 for PAD with left foot gangrene and left knee septic arthritis. Patient underwent endarterectomy of the left leg and also left knee arthroscopic irrigation and debridement. Synovial fluid was positive for micrococcus species. Patient was discharged on IV Dapto and Ertapenem for 4 weeks of therapy. Patient was then readmitted 09/19 - 09/27 for severe sepsis likely due to pneumonia. While admitted, Ertapenem was changed to Zosyn and patient completed 7 days of therapy. Due to the left knee septic arthritis and gangrene left toe infection, patient was discharged on IV Dapto to complete the initial 4 weeks of therapy. On 10/19, patient underwent left 3rd toe amputation by Dr. Jefferson. Post operatively, the patient developed increased redness and drainage and was readmitted to [facility] 11/05 - 11/11 for wound infection / ongoing osteomyelitis. Wound culture grew E. Coli and Pseudomonas and patient was discharged on Zosyn to complete treatment on 12/17. ACUTE ON CHRONIC SYSTOLIC CHF, ISCHEMIC CARDIOMYOPATHY echo 09/2016 - EF 35-40%; BL PLEURAL EFFUSIONS - directly admitted to [facility] from [facility] after shortness of breath and lower extremity edema x 2 weeks - home diuretic dose - 20mg PO BID with an additional tab daily PRN - Lasix IV BID as inpatient - strict I/Os, matos, daily weights, low Na+ diet Respiratory: - cardiology evaluated on 12/07/16 and requested pulmonary to try to do thoracentesis (Sonography of the right hemithorax revealed a large right pleural effusion with estimated volume of 1565 cc. Sonography of the left hemithorax revealed a large left pleural effusion with estimated volume of 1209 cc) -s/p thoracentesis on 12/08/16, obtain follow up chest X ray s/p procedure CAD - stable, continue ASA and beta norma ATRIAL FIBRILLATION - rate controlled on beta norma - Coumadin stopped due to epistaxis and unsteady gait Electrolytes: monitor and replete electrolytes because of diuretic use CKD STAGE III - continue to monitor, avoid nephrotoxic agents when able, diuresis may increase creatinine LEFT 3RD TOE AMPUTATION SITE OSTEOMYELITIS, LEFT 5TH TOE ESCHAR, LEFT PLANTAR SURFACE ULCER - currently receiving IV Zosyn - to complete course on 12/17 - scheduled for left 5th amputation on 12/[address] Ahumada - continue IV Zosyn - wound care consult DM - Hba1c 6.5 09/2016 - Lantus + SSI ANEMIA - chronic, hgb at baseline, likely anemia of chronic disease Stg II Sacral Decub-POA, Optifoam applied, EHOB mattress ordered. Wound care consulted. DVT PROPHYLAXIS - SQ Heparin CODE STATUS - Patient is DNR Vital Signs: Date Time Temp Pulse Resp B/P (MAP) Pulse Ox O2 Delivery O2 Flow Rate FiO2 12/08/16 12:00 Nasal Cannula 12/08/16 10:57 36.4 74 18 108/70 (83) 99 4.0 12/08/16 08:00 Nasal Cannula 12/08/16 07:49 36.5 80 18 122/83 (96) 98 4.0 12/08/16 04:00 Nasal Cannula 4.0 12/08/16 03:25 36.4 91 18 121/90 (100) 95 Room Air 12/08/16 00:51 37.1 82 18 122/72 (89) 98 12/07/16 23:59 Nasal Cannula 4.0 12/07/16 20:19 36.5 67 18 116/68 (84) 100 Nasal Cannula 4.0 12/07/16 20:00 Room Air 12/07/16 16:28 36.5 12/07/16 16:11 36.4 82 17 138/78 (98) 100 Nasal Cannula 4.0 12/07/16 16:00 Room Air 12/07/16 15:45 77 18 138/77 (97) 96 Nasal Cannula 4.0 12/07/16 14:27 Nasal Cannula 4.0 Lab Results: Results Past 24 Hours Test 12/07/16 16:23 12/07/16 19:45 12/08/16 06:44 12/08/16 06:59 Range/Units Bedside Glucose 141 177 77 70-99 mg/dl White Blood Count 4.56 4.8-10.8 K/uL Red Blood Count 3.30 4.7-6.1 M/uL Hemoglobin 9.3 14.0-18.0 g/dL Hematocrit 30.6 42-52 % Mean Corpuscular Volume 92.7 80-100 fL Mean Corpuscular Hemoglobin 28.2 25-34 pg Mean Corpuscular Hemoglobin Concent 30.4 32-36 g/dl Platelet Count 125 130-400 K/uL Mean Platelet Volume 10.6 7.4-10.4 fL Neutrophils (%) (Auto) 77.0 % Lymphocytes (%) (Auto) 8.3 % Monocytes (%) (Auto) 12.1 % Eosinophils (%) (Auto) 2.2 % Basophils (%) (Auto) 0.2 % Neutrophils # (Auto) 3.51 1.4-6.5 K/uL Lymphocytes # (Auto) 0.38 1.2-3.4 K/uL Monocytes # (Auto) 0.55 0.11-0.59 K/uL Eosinophils # (Auto) 0.10 0-0.5 K/uL Basophils # (Auto) 0.01 0-0.2 K/uL RDW Standard Deviation 74.1 36.4-46.3 fL RDW Coefficient of Variation 21.7 11.5-14.5 % Immature Granulocyte % (Auto) 0.2 % Immature Granulocyte # (Auto) 0.01 0.00-0.02 K/uL Hypochromasia PRESENT Anisocytosis PRESENT Sodium Level 141 136-145 mmol/L Potassium Level 3.7 3.5-5.1 mmol/L Chloride Level 101 98-107 mmol/L Carbon Dioxide Level 33 21-32 mmol/L Anion Gap 7.0 3-11 mmol/L Blood Urea Nitrogen 36 7-18 mg/dl Creatinine 1.60 0.60-1.40 mg/dl Est Creatinine Clear Calc Drug Dose 33.0 ml/min Estimated GFR () 43.9 Estimated GFR (Non- 37.9 BUN/Creatinine Ratio 22.5 01-07 Random Glucose 73 70-99 mg/dl Calcium Level 9.1 8.5-10.1 mg/dl Magnesium Level 2.2 1.8-2.4 mg/dl Total Bilirubin 0.5 0.2-1 mg/dl Aspartate Amino Transf (AST/SGOT) 34 15-37 U/L Alanine Aminotransferase (ALT/SGPT) 31 12-78 U/L Alkaline Phosphatase 65 45-117 U/L Total Protein 8.0 6.4-8.2 gm/dl Albumin 2.1 3.4-5.0 gm/dl Globulin 5.9 2.5-4.0 gm/dl Albumin/Globulin Ratio 0.4 0.9-2 Test 12/08/16 11:00 12/08/16 11:37 Range/Units Bedside Glucose 147 70-99 mg/dl Microbiology Results 12/08/16 Acid Fast Stain, Derrick Batch Pending 12/08/16 Mycobacterial Culture, Derrick Batch Pending 12/08/16 Gram Stain, Derrick Batch Pending 12/08/16 Bacterial Culture, Derrick Batch Pending
[2016-12-08 13:29] LABS: PLEURAL FLUID TOTAL PROTEIN 2.5 g/dl
[2016-12-08 13:43] LABS: PLEURAL FLUID APPEARANCE CLEAR; PLEURAL FLUID COLOR YELLOW; PLEURAL FLUID MONONUC RELAT 60.7 %; PLEURAL FLUID POLYNUC 39.3 %; PLEURAL FLUID SOURCE RIGHT LUNG; PLEURAL FLUID WBC (A) 63 /uL
--- NOTE | 2016-12-08 13:46 | DIAGNOSTIC IMAGING REPORT ---
CHEST 2 VIEWS ROUTINE CLINICAL HISTORY: s/p thor centesis today postthoracentesis. Dyspnea. COMPARISON STUDY: 12/06/2016 FINDINGS: Improved aeration right base status post right thoracentesis. Right-sided PICC catheter remains in superior vena cava. No evidence pneumothorax. Pre-existing left effusion unchanged. Heart remains mildly enlarged. IMPRESSION: Improved aeration right base status post thoracentesis. No evidence pneumothorax. Unchanging left effusion. The above report was generated using voice recognition software. It may contain grammatical, syntax or spelling errors. Electronically signed by: Morteza King M.D. 12/08/2016 1:45 PM Dictated Date/Time: 12/08/2016 1:43 PM
[2016-12-08 20:07] LABS: POTASSIUM 3.8 mmol/L (3.5-5.1)
[2016-12-08 20:08] LABS: MAGNESIUM 1.9 mg/dl (1.8-2.4)
[2016-12-08] MEDS: INSULIN GLARGINE SOLOSTAR 100 UNITS/ML 3 ML PEN SC SCH (21:01)
[2016-12-08] MEDS ORDERED: POTASSIUM CHLORIDE 20 MEQ TABCR PO SCH (21:15)
[2016-12-09] VITALS (8 sets, daily range): BP systolic 111–129; BP diastolic 62–74; PULSE 16–97; TEMP 36.3–36.7; O2SAT 95–99
[2016-12-09] MEDS: HEPARIN SOD 5000 UNIT/0.5 ML CARP SQ SCH ×3 (05:48→20:27)
[2016-12-09 06:34] LABS: HEMATOCRIT 30.7 % (42-52); MEAN CORPUSCULAR HEMOGLOBIN 27.3 pg (25-34); MEAN CORPUSCULAR HGB CONC 29.3 g/dl (32-36); MEAN PLATELET VOLUME 10.6 fL (7.4-10.4); PLATELET COUNT 134 K/uL (130-400); WHITE BLOOD COUNT 4.84 K/uL (4.8-10.8)
[2016-12-09 07:24] LABS: BUN/CREATININE RATIO 20.4 (10-20); CALCIUM 8.5 mg/dl (8.5-10.1); CREATININE 1.8 mg/dl (0.60-1.40); POTASSIUM 3.6 mmol/L (3.5-5.1)
[2016-12-09 07:34] LABS: ALB/GLOB RATIO 0.4 (0.9-2)
[2016-12-09] MEDS: FERROUS SULFATE 325 MG TAB PO SCH ×3 (08:29→17:30)
[2016-12-09] MEDS: CEROVITE ADV FORMULA TAB PO SCH (08:29)
[2016-12-09] MEDS: CHOLECALCIFEROL 1000 INTER.UNIT TAB PO SCH (08:29)
[2016-12-09] MEDS: ASPIRIN 81 MG ECTAB PO SCH (08:29)
[2016-12-09] MEDS: ASCORBIC ACID 500 MG TAB PO SCH (08:31)
[2016-12-09] MEDS: METOPROLOL TARTRATE 25 MG TAB PO SCH ×2 (08:31→20:11)
[2016-12-09] MEDS: POTASSIUM CHLORIDE 20 MEQ TABCR PO SCH (08:31)
[2016-12-09] MEDS: FUROSEMIDE INJ 40 MG in SYRINGE 0 ML IV SCH ×2 (08:32→17:31)
[2016-12-09] MEDS: BOOST BREEZE NUTRITION DRINK 1 BOX PO SCH (08:32)
[2016-12-09] MEDS: PIPERACILL/TAZOBAC IV 3.375 GM in DEXTROSE 5% 100ML IV SCH ×3 (08:32→23:32)
[2016-12-09] MEDS: INSULIN ASPART 100 UNITS/ML 3 ML PEN SC SCH ×4 (08:40→20:27)
--- NOTE | 2016-12-09 09:20 | Cardiology Follow-Up ---
Subjective General Date of Service: Dec 09, 2016. Pt evaluation today including: conversation w/ patient, physical exam, chart review, lab review, review of studies, review of inpatient medication list History of Present Illness The patient is a 86 year old male seen in follow-up. Respiratory status mildly improved. Lower extremity edema unchanged. His weight is down more than 5 kg since admission. Right sided thoracentesis performed yesterday with approximately 1400 mL of output. Approximately 1500 mL urine output over the past 24 hours. Patient reports mild sore throat which began this morning. No fevers reported. Remains in atrial fibrillation with controlled ventricular response on telemetry. Creatinine remained stable. Episode of mild epistaxis reported by nursing staff. Allergies Coded Allergies: HERMAN Inhibitors (Verified Allergy, Intermediate, UNKNOWN, 11/05/16) Lisinopril (Verified Adverse Reaction, Unknown, COUGHING, 11/05/16) Social History Smoking Status: Former Smoker Hx Tobacco Use In Past Year?: No (gera 1970) Hx Alcohol Use - Type And Amou: No Hx Substance Use - Type And Am: No Problem List Medical Problems: (1) Acute on chronic renal failure Status: Acute (2) Anemia Status: Acute (3) Cellulitis of left leg Status: Acute (4) CHF (congestive heart failure) Status: Acute (5) Hypoxia Status: Acute (6) Left-sided epistaxis Status: Acute (7) Pneumonia Status: Acute (8) Sepsis Status: Acute (9) Urinary retention Status: Acute Review of Systems Respiratory: + cough, + dyspnea on exertion, No sputum, No wheezing, No shortness of breath, No dyspnea at rest, No hemoptysis Cardiac: + edema, No chest pain, No orthopnea, No PND, No claudication, No palpitations Physical Exam Vital Signs Last Vital Signs Documentation Date Time Temp Pulse Resp B/P (MAP) Pulse Ox O2 Delivery O2 Flow Rate FiO2 12/09/16 08:00 Nasal Cannula 2.0 12/09/16 07:02 36.5 84 18 115/71 (86) 95 Physical Exam Constitutional: Level of Distress: chronically ill Head: normocephalic Lungs: Auscultation: decreased breath sounds, rales/crackles on the left, rales/ crackles on the right Cardiovascular: Heart Auscultation: normal S1, normal S2, I/ SCOTTY, irregular rate rhythm Peripheral Pulses: Radial Pulse: normal on the right Abdomen: Inspection & Palpation: soft, non-distended, no tenderness, guarding & rebound Extremities: no cyanosis, edema (1-2+ B/L LE edema) Neurologic: Cranial Nerves: grossly intact Assessment and Plan Assessment and Plan IMPRESSION: 1. Acute decompensated systolic heart failure with large bilateral pleural effusions. - improving with 1500cc diuresis over the past 24 hours - s/p right sided thoracocentesis of 1400cc pleural fluid 2. Cardiorenal syndrome - creatinine stable 3. Chronic rate controlled atrial fibrillation. 4. Peripheral vascular disease and left lower extremity osteomyelitis status post left 3rd toe amputation. 5. Aortic valve disease with history of bioprosthetic aortic valve replacement in 2007. 6. 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 7. Moderate mitral insufficiency. 8. Diabetes type 2. PLAN AND RECOMMENDATIONS: Continue IV diuresis. Follow fluid balance, GFR, electrolytes and daily weight. Will give an additional 20meq of KCL today. Tentative plan for left sided thoracentesis today. Continue beta norma and other cardiovascular medications as previously ordered. We'll continue to follow closely. Laboratory Results Last 24 Hours Test 12/08/16 11:37 12/08/16 19:37 12/09/16 06:04 12/09/16 06:56 Bedside Glucose 147 mg/dl 100 mg/dl Potassium Level 3.8 mmol/L 3.6 mmol/L Magnesium Level 1.9 mg/dl White Blood Count 4.84 K/uL Red Blood Count 3.30 M/uL Hemoglobin 9.0 g/dL Hematocrit 30.7 % Mean Corpuscular Volume 93.0 fL Mean Corpuscular Hemoglobin 27.3 pg Mean Corpuscular Hemoglobin Concent 29.3 g/dl RDW Standard Deviation 73.8 fL RDW Coefficient of Variation 21.8 % Platelet Count 134 K/uL Mean Platelet Volume 10.6 fL Sodium Level 140 mmol/L Chloride Level 101 mmol/L Carbon Dioxide Level 33 mmol/L Anion Gap 6.0 mmol/L Blood Urea Nitrogen 37 mg/dl Creatinine 1.80 mg/dl Est Creatinine Clear Calc Drug Dose 29.3 ml/min Estimated GFR () 38.1 Estimated GFR (Non- 32.9 BUN/Creatinine Ratio 20.4 Random Glucose 87 mg/dl Calcium Level 8.5 mg/dl Total Bilirubin 0.5 mg/dl Aspartate Amino Transf (AST/SGOT) 29 U/L Alanine Aminotransferase (ALT/SGPT) 28 U/L Alkaline Phosphatase 66 U/L Total Protein 7.4 gm/dl Albumin 2.0 gm/dl Globulin 5.4 gm/dl Albumin/Globulin Ratio 0.4
[2016-12-09] MEDS ORDERED: POTASSIUM CHLORIDE 10 MEQ TABCR PO ONE (09:45)
--- NOTE | 2016-12-09 16:58 | Procedure Note ---
Procedure Note Date of Service Dec 09, 2016. (Angelia Weber .JODI) Procedure Note Procedures: Left sided Thoracentesis Consent: Dr. Jang obtained consent and this was placed into the patient's chart. Discussed procedure with daughterAlia as well prior to procedure Pre-Procedural Dx: Left sided pleural effusion Post-Procedural Dx: Left-sided pleural effusion Analgesia: 8cc of 1% Liquid Lidocaine Procedure: The patient was placed in an upright position and thoracic US was used to select a spot for the procedure. A spot along the posterior axillary line was marked in the 7th intercostal space. The patient was then draped and prepped in a sterile fashion. A modified Seldinger technique was then used for catheter placement. Flowing this approximately 1500cc of clear yellow pleural fluid was removed. The patient was then cleaned and placed at a 60 degree angle in the bed were the US was used to evaluate for possible pneumothorax. Good sliding lung sign and proper B lines were seen on left apical midclavicular line post-thoracentesis U/S. EBL: none Complications: none Performed with the supervision and assistance of Dr. Jang (Angelia Weber ., JODI) I was at the bedside actively involved with this procedure thank you much. (Luis Jang MD)
[2016-12-09 17:57] LABS: PLEURAL FLUID APPEARANCE CLEAR; PLEURAL FLUID COLOR YELLOW; PLEURAL FLUID MONONUC RELAT 82.6 %; PLEURAL FLUID POLYNUC 17.4 %; PLEURAL FLUID SOURCE LEFT LUNG; PLEURAL FLUID WBC (A) 133 /uL
--- NOTE | 2016-12-09 17:58 | DIAGNOSTIC IMAGING REPORT ---
FOOT MIN 3 VIEWS ROUTINE CLINICAL HISTORY: diabetic foot ulcer and gangrene COMPARISON: 11/05/2016 DISCUSSION: There are vascular calcifications present. There is a pes planus deformity. There are advanced degenerative changes the level the first metatarsal phalangeal joint with a hallux valgus deformity and lateral subluxation of the proximal phalanx. There is a subluxation at the level of the second metatarsal phalangeal joint. There are destructive changes involving the proximal phalanx of the third toe. The middle and distal phalanges are not visualized. The findings may indicate osteomyelitis. There is a probable old fracture of the fifth metatarsal neck. There is a bony erosion involving the fifth metatarsal head IMPRESSION: 1. Progressive destructive changes involving the proximal phalanx of the third toe, suspicious for osteomyelitis 2. Stable subluxation at the level of the second metatarsal phalangeal joint 3. Stable advanced arthritic changes the level the first metatarsal phalangeal joint with a hallux varus deformity, and lateral subluxation of the proximal phalanx. Electronically signed by: Michoacano Christopher M.D. 12/09/2016 5:57 PM Dictated Date/Time: 12/09/2016 5:53 PM
--- NOTE | 2016-12-09 18:32 | DIAGNOSTIC IMAGING REPORT ---
L LOWER EXTREMITY WITHOUT CLINICAL HISTORY: 86 years-old Male presenting with ulcer and gangrene foot, concern for osteomyelitis. TECHNIQUE: Multidetector CT of the left foot was performed without the use of intravenous contrast. IV contrast: None. A dose lowering technique was used consistent with the principles of ALARA (as low as reasonably achievable). COMPARISON: Plain radiographs of the left foot from 12/09/2016. CT DOSE (mGy.cm): The estimated cumulative dose is 187.76 mGy.cm. FINDINGS: [employer] topogram: Unremarkable. Subluxation and degenerative change with complete joint space loss and osteophytosis at the first metatarsophalangeal joint. Deformity of the tuft of the distal phalanx of the first toe, consistent with acrolysis. Soft tissue defect noted at the third toe. Osseous dissolution of the proximal phalanx of the third toe with absence of the middle and distal phalanges of the third toe. Slight erosion at the base of the proximal phalanx of the third toe suggest involvement of the third metatarsophalangeal joint. Questionable erosion of the heads of the second and third metatarsals. Cortical discontinuity at the base of the proximal phalanx of the fourth toe suggest minimally displaced fracture (series 3 image [id number]). Diffuse subcutaneous edema. Allowing for noncontrast technique, no gross evidence of a fluid collection. IMPRESSION: 1. Findings consistent with osteomyelitis of the proximal phalanx of the third toe with concern for septic arthritis of the third metatarsophalangeal joint. This be better demonstrated on MR. 2. Suspicion for septic arthritis/osteomyelitis of the head of the second metatarsal and second metatarsophalangeal joint. 3. Findings concerning for minimally displaced fracture of the base of the proximal phalanx of the fourth toe. 4. Extensive degenerative changes of the first metatarsophalangeal joint. 5. Acrolysis of the tuft of the first toe. Electronically signed by: Xavier Lopez M.D. 12/09/2016 6:30 PM Dictated Date/Time: 12/09/2016 6:18 PM
[2016-12-09 18:58] LABS: PLEURAL FLUID TOTAL PROTEIN 2.6 g/dl
[2016-12-09] MEDS: INSULIN GLARGINE SOLOSTAR 100 UNITS/ML 3 ML PEN SC SCH (20:27)
--- NOTE | 2016-12-09 20:35 | Progress Note ---
Internal Med Progress Note Date of Service: Dec 09, 2016. Provider Documentation: SUBJECTIVE: yesterday s/p right sided thoracentesis. today s/p left sided thoracentesis. patient breathing on nasal cannula. denies chest pain or difficulties with breathing. OBJECTIVE: General Appearance: no apparent distress Head: normocephalic Eyes: normal inspection, sclerae normal ENT: hearing grossly normal, nasal cannula Neck: supple Respiratory/Chest: no respiratory distress, improved lung sounds after thoracentesis compared to prior exam in the morning time Cardiovascular: regular rate, rhythm Abdomen/GI: normal bowel sounds, non tender, soft, + distended Extremities: normal inspection, no calf tenderness, +3 pitting edema in bilateral lower extremities Neurologic/Psych: no motor/sensory deficits, alert, oriented x 3 Skin: left 5th toe with eschar; small amount of drainage between 5th and 4th toes; ulcer noted on the plantar surface of the left foot without erythema or drainage ASSESSMENT & PLAN: 86 year old male who was sent to the hospital as a direct admission from [facility] for volume overload. Patient has been admitted to [facility] three times recently. First was 08/20 - 09/04 for PAD with left foot gangrene and left knee septic arthritis. Patient underwent endarterectomy of the left leg and also left knee arthroscopic irrigation and debridement. Synovial fluid was positive for micrococcus species. Patient was discharged on IV Dapto and Ertapenem for 4 weeks of therapy. Patient was then readmitted 09/19 - 09/27 for severe sepsis likely due to pneumonia. While admitted, Ertapenem was changed to Zosyn and patient completed 7 days of therapy. Due to the left knee septic arthritis and gangrene left toe infection, patient was discharged on IV Dapto to complete the initial 4 weeks of therapy. On 10/19, patient underwent left 3rd toe amputation by Dr. Jefferson. Post operatively, the patient developed increased redness and drainage and was readmitted to [facility] 11/05 - 11/11 for wound infection / ongoing osteomyelitis. Wound culture grew E. Coli and Pseudomonas and patient was discharged on Zosyn to complete treatment on 12/17. ACUTE ON CHRONIC SYSTOLIC CHF, ISCHEMIC CARDIOMYOPATHY echo 09/2016 - EF 35-40%; BL PLEURAL EFFUSIONS - directly admitted to [facility] from [facility] after shortness of breath and lower extremity edema x 2 weeks - home diuretic dose - 20mg PO BID with an additional tab daily PRN - Lasix IV BID as inpatient - strict I/Os, maots, daily weights, low Na+ diet Respiratory: - cardiology evaluated on 12/07/16 and requested pulmonary to try to do thoracentesis (Sonography of the right hemithorax revealed a large right pleural effusion with estimated volume of 1565 cc. Sonography of the left hemithorax revealed a large left pleural effusion with estimated volume of 1209 cc) -s/p right sided thoracentesis on 12/08/16 -s/p left sided thoracentesis on 12/09/16, obtain chest X ray CAD - stable, continue ASA and beta norma ATRIAL FIBRILLATION - rate controlled on beta norma - Coumadin stopped due to epistaxis and unsteady gait Electrolytes: monitor and replete electrolytes because of diuretic use CKD STAGE III - continue to monitor, avoid nephrotoxic agents when able, diuresis may increase creatinine LEFT 3RD TOE AMPUTATION SITE OSTEOMYELITIS, LEFT 5TH TOE ESCHAR, LEFT PLANTAR SURFACE ULCER - currently receiving IV Zosyn - to complete course on 12/17 - scheduled for left 5th amputation on 12/[address] Ahumada - continue IV Zosyn - wound primary health care nurse ordered lower extremity imaging including CT scan: "1. Findings consistent with osteomyelitis of the proximal phalanx of the third toe with concern for septic arthritis of the third metatarsophalangeal joint. This be better demonstrated on MR. 2. Suspicion for septic arthritis/osteomyelitis of the head of the second metatarsal and second metatarsophalangeal joint. 3. Findings concerning for minimally displaced fracture of the base of the proximal phalanx of the fourth toe. 4. Extensive degenerative changes of the first metatarsophalangeal joint. 5. Acrolysis of the tuft of the first toe." DM - Hba1c 6.5 09/2016 - Lantus + SSI ANEMIA - chronic, hgb at baseline, likely anemia of chronic disease Stg II Sacral Decub-POA, Optifoam applied, EHOB mattress ordered. Wound care consulted. DVT PROPHYLAXIS - SQ Heparin CODE STATUS - Patient is DNR Vital Signs: Date Time Temp Pulse Resp B/P (MAP) Pulse Ox O2 Delivery O2 Flow Rate FiO2 12/09/16 20:00 Nasal Cannula 2.0 12/09/16 19:13 36.4 93 18 129/73 (91) 99 Nasal Cannula 2.0 12/09/16 16:15 36.7 72 20 123/65 (84) 95 12/09/16 16:00 Nasal Cannula 2.0 12/09/16 15:13 Nasal Cannula 2.0 12/09/16 15:11 Nasal Cannula 2.0 12/09/16 12:00 Nasal Cannula 2.0 12/09/16 11:03 36.4 68 16 118/62 (80) 95 12/09/16 09:30 Humidified Oxygen 2.0 12/09/16 08:00 Nasal Cannula 2.0 12/09/16 07:02 36.5 84 18 115/71 (86) 95 Nasal Cannula 2.0 12/09/16 04:26 36.4 72 18 111/65 (80) 97 Nasal Cannula 2.0 12/09/16 04:00 Nasal Cannula 4.0 12/09/16 00:00 Nasal Cannula 4.0 12/09/16 00:00 20 111/74 (86) 98 Nasal Cannula 4.0 12/08/16 22:55 36.5 80 20 111/74 (86) 98 Room Air Lab Results: Results Past 24 Hours Test 12/09/16 00:00 12/09/16 06:04 12/09/16 06:56 12/09/16 11:31 Range/Units Pleural Fluid Source LEFT LUNG Pleural Fluid Color YELLOW Pleural Fluid Appearance CLEAR Pleural Fluid WBC 133 /uL Pleural Fluid RBC < 3000 /uL Pleural Fluid pH 7.47 7.3-7.4 Pleural Fluid Polynuclear WBCs % 17.4 % Pleural Fluid Mononuclear WBCs % 82.6 % Pleural Fluid Total Protein 2.6 g/dl Pleural Fluid LDH 60 IU Pleural Fluid Glucose 169 mg/dl Pleural Fluid Amylase 15 U/L White Blood Count 4.84 4.8-10.8 K/uL Red Blood Count 3.30 4.7-6.1 M/uL Hemoglobin 9.0 14.0-18.0 g/dL Hematocrit 30.7 42-52 % Mean Corpuscular Volume 93.0 80-100 fL Mean Corpuscular Hemoglobin 27.3 25-34 pg Mean Corpuscular Hemoglobin Concent 29.3 32-36 g/dl RDW Standard Deviation 73.8 36.4-46.3 fL RDW Coefficient of Variation 21.8 11.5-14.5 % Platelet Count 134 130-400 K/uL Mean Platelet Volume 10.6 7.4-10.4 fL Sodium Level 140 136-145 mmol/L Potassium Level 3.6 3.5-5.1 mmol/L Chloride Level 101 98-107 mmol/L Carbon Dioxide Level 33 21-32 mmol/L Anion Gap 6.0 3-11 mmol/L Blood Urea Nitrogen 37 7-18 mg/dl Creatinine 1.80 0.60-1.40 mg/dl Est Creatinine Clear Calc Drug Dose 29.3 ml/min Estimated GFR () 38.1 Estimated GFR (Non- 32.9 BUN/Creatinine Ratio 20.4 10-20 Random Glucose 87 70-99 mg/dl Calcium Level 8.5 8.5-10.1 mg/dl Total Bilirubin 0.5 0.2-1 mg/dl Aspartate Amino Transf (AST/SGOT) 29 15-37 U/L Alanine Aminotransferase (ALT/SGPT) 28 12-78 U/L Alkaline Phosphatase 66 45-117 U/L Total Protein 7.4 6.4-8.2 gm/dl Albumin 2.0 3.4-5.0 gm/dl Globulin 5.4 2.5-4.0 gm/dl Albumin/Globulin Ratio 0.4 0.9-2 Bedside Glucose 100 172 70-99 mg/dl Test 12/09/16 16:53 Range/Units Bedside Glucose 180 70-99 mg/dl Microbiology Results 12/09/16 Acid Fast Stain, Received Pending 12/09/16 Mycobacterial Culture, Received Pending 12/09/16 Gram Stain - Final, Resulted 12/09/16 Bacterial Culture, Resulted Pending
--- NOTE | 2016-12-09 21:35 | DIAGNOSTIC IMAGING REPORT ---
CHEST ONE VIEW PORTABLE CLINICAL HISTORY: 86 years-old Male presenting with s/p thoracentesis. TECHNIQUE: Portable upright AP view of the chest was obtained. COMPARISON: 12/08/2016. FINDINGS: Right upper extremity PICC terminates in the lower SVC near the superior cavoatrial junction Median sternotomy wires with breakage of the most inferior wire and prosthetic aortic valve again noted. Atherosclerosis of the aortic arch. Cardiac silhouette mildly enlarged. Persistent bibasilar opacities. Interval decrease in left pleural effusion, now small. Persistent small right pleural effusion. No pneumothorax. Osseous structures normal. Upper abdomen normal. IMPRESSION: 1. Interval decrease in left pleural effusion status post thoracentesis. No pneumothorax. 2. Persistent bibasilar opacities, which could represent edema, infection, or aspiration. 3. Persistent small right pleural effusion. 4. Mild cardiomegaly. Electronically signed by: Xavier Lopez M.D. 12/09/2016 9:33 PM Dictated Date/Time: 12/09/2016 9:30 PM
[2016-12-10 04:00] VITALS: O2SAT 99
[2016-12-10] MEDS: HEPARIN SOD 5000 UNIT/0.5 ML CARP SQ SCH ×3 (06:17→21:15)
[2016-12-10 06:48] LABS: BASO % 0.4 %; BASO ABS # 0.02 K/uL (0-0.2); EOS % 2.3 %; HEMATOCRIT 28.7 % (42-52); IG% 0.2 %; LYMPH % 10.4 %; LYMPH ABS # 0.49 K/uL (1.2-3.4); MEAN CELL VOLUME 91.1 fL (80-100); MEAN CORPUSCULAR HEMOGLOBIN 28.9 pg (25-34); MEAN CORPUSCULAR HGB CONC 31.7 g/dl (32-36); MEAN PLATELET VOLUME 11.1 fL (7.4-10.4); MONO % 11.7 %; PLATELET COUNT 123 K/uL (130-400); RED BLOOD COUNT 3.15 M/uL (4.7-6.1); WHITE BLOOD COUNT 4.72 K/uL (4.8-10.8)
[2016-12-10 07:14] LABS: CALCIUM 8.4 mg/dl (8.5-10.1); CREATININE 1.7 mg/dl (0.60-1.40); POTASSIUM 3.3 mmol/L (3.5-5.1)
[2016-12-10 07:24] LABS: ALB/GLOB RATIO 0.4 (0.9-2)
[2016-12-10] MEDS ORDERED: POTASSIUM CHLORIDE 20 MEQ TABCR PO STA (07:33)
[2016-12-10 07:46] LABS: ANISOCYTOSIS PRESENT; COMPLETE YES; HYPOCHROMIA PRESENT
[2016-12-10 07:50] VITALS: BP 110/65; PULSE 72; TEMP 36.6; O2SAT 99
--- NOTE | 2016-12-10 08:34 | Cardiology Follow-Up ---
Subjective General Date of Service: Dec 10, 2016. Pt evaluation today including: conversation w/ patient, physical exam, chart review, lab review, review of studies, review of inpatient medication list History of Present Illness The patient is a 86 year old male seen in follow-up. Left sided thoracentesis performed yesterday. 1500cc removed. Feeling better today. Edema improved. Creatinine trending downward. No recurrent epistaxis. Allergies Coded Allergies: HERMAN Inhibitors (Verified Allergy, Intermediate, UNKNOWN, 11/05/16) Lisinopril (Verified Adverse Reaction, Unknown, COUGHING, 11/05/16) Social History Smoking Status: Former Smoker Hx Tobacco Use In Past Year?: No (gera 1970) Hx Alcohol Use - Type And Amou: No Hx Substance Use - Type And Am: No Problem List Medical Problems: (1) Acute on chronic renal failure Status: Acute (2) Anemia Status: Acute (3) Cellulitis of left leg Status: Acute (4) CHF (congestive heart failure) Status: Acute (5) Hypoxia Status: Acute (6) Left-sided epistaxis Status: Acute (7) Pneumonia Status: Acute (8) Sepsis Status: Acute (9) Urinary retention Status: Acute Review of Systems Respiratory: + shortness of breath, + dyspnea on exertion, No cough, No sputum , No wheezing, No dyspnea at rest, No hemoptysis Cardiac: + edema, No chest pain, No orthopnea, No PND, No claudication, No palpitations Physical Exam Vital Signs Last Vital Signs Documentation Date Time Temp Pulse Resp B/P (MAP) Pulse Ox O2 Delivery O2 Flow Rate FiO2 12/10/16 07:50 36.6 72 20 110/65 (80) 99 Nasal Cannula 2.0 Physical Exam Constitutional: Level of Distress: chronically ill Head: normocephalic ENMT: normal ENT inspection Lungs: Auscultation: decreased breath sounds, rales/crackles on the left Cardiovascular: Heart Auscultation: normal S1, normal S2, I/ SCOTTY, irregular rate rhythm Peripheral Pulses: Radial Pulse: normal on the right Abdomen: Inspection & Palpation: soft, non-distended, no tenderness, guarding & rebound Extremities: no cyanosis, edema (1-2+ B/L LE pretibial edema) Neurologic: Cranial Nerves: grossly intact Assessment and Plan Assessment and Plan IMPRESSION: 1. Acute decompensated systolic heart failure with large bilateral pleural effusions. - improving with approximately 900cc diuresis over the past 24 hours - s/p right sided 12/08 thoracocentesis of 1400cc pleural fluid - s/p left sided 12/09 thoracentesis of 1500cc pleural fluid 2. Cardiorenal syndrome - creatinine trending down 3. Chronic rate controlled atrial fibrillation. 4. Peripheral vascular disease and left lower extremity osteomyelitis status post left 3rd toe amputation. 5. Aortic valve disease with history of bioprosthetic aortic valve replacement in 2007. 6. 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 7. Moderate mitral insufficiency. 8. Diabetes type 2. 9. Epistaxis PLAN AND RECOMMENDATIONS: Continue IV diuresis. Follow fluid balance, GFR, electrolytes and daily weight. Patient given 40 mEq of KCl today. Continue beta norma and other cardiovascular medications as previously ordered. I will continue to follow patient during hospitalization. Laboratory Results Last 24 Hours Test 12/09/16 11:31 12/09/16 16:53 12/09/16 20:24 12/10/16 06:10 Bedside Glucose 172 mg/dl 180 mg/dl 231 mg/dl 106 mg/dl Test 12/10/16 06:12 White Blood Count 4.72 K/uL Red Blood Count 3.15 M/uL Hemoglobin 9.1 g/dL Hematocrit 28.7 % Mean Corpuscular Volume 91.1 fL Mean Corpuscular Hemoglobin 28.9 pg Mean Corpuscular Hemoglobin Concent 31.7 g/dl Platelet Count 123 K/uL Mean Platelet Volume 11.1 fL Neutrophils (%) (Auto) 75.0 % Lymphocytes (%) (Auto) 10.4 % Monocytes (%) (Auto) 11.7 % Eosinophils (%) (Auto) 2.3 % Basophils (%) (Auto) 0.4 % Neutrophils # (Auto) 3.54 K/uL Lymphocytes # (Auto) 0.49 K/uL Monocytes # (Auto) 0.55 K/uL Eosinophils # (Auto) 0.11 K/uL Basophils # (Auto) 0.02 K/uL RDW Standard Deviation 73.8 fL RDW Coefficient of Variation 21.9 % Immature Granulocyte % (Auto) 0.2 % Immature Granulocyte # (Auto) 0.01 K/uL Hypochromasia PRESENT Anisocytosis PRESENT Sodium Level 138 mmol/L Potassium Level 3.3 mmol/L Chloride Level 99 mmol/L Carbon Dioxide Level 34 mmol/L Anion Gap 5.0 mmol/L Blood Urea Nitrogen 32 mg/dl Creatinine 1.70 mg/dl Est Creatinine Clear Calc Drug Dose 31.0 ml/min Estimated GFR () 40.8 Estimated GFR (Non- 35.2 BUN/Creatinine Ratio 19.0 Random Glucose 102 mg/dl Calcium Level 8.4 mg/dl Total Bilirubin 0.5 mg/dl Aspartate Amino Transf (AST/SGOT) 30 U/L Alanine Aminotransferase (ALT/SGPT) 27 U/L Alkaline Phosphatase 63 U/L Lactate Dehydrogenase 156 U/L Total Protein 7.3 gm/dl Albumin 1.9 gm/dl Globulin 5.4 gm/dl Albumin/Globulin Ratio 0.4
[2016-12-10] MEDS: BOOST BREEZE NUTRITION DRINK 1 BOX PO SCH (09:00)
[2016-12-10] MEDS: CEROVITE ADV FORMULA TAB PO SCH (09:05)
[2016-12-10] MEDS: ASPIRIN 81 MG ECTAB PO SCH (09:05)
[2016-12-10] MEDS: FERROUS SULFATE 325 MG TAB PO SCH ×3 (09:05→17:12)
[2016-12-10] MEDS: CHOLECALCIFEROL 1000 INTER.UNIT TAB PO SCH (09:06)
[2016-12-10] MEDS: ASCORBIC ACID 500 MG TAB PO SCH (09:06)
[2016-12-10] MEDS: POTASSIUM CHLORIDE 20 MEQ TABCR PO SCH (09:06)
[2016-12-10] MEDS: METOPROLOL TARTRATE 25 MG TAB PO SCH ×2 (09:07→21:13)
[2016-12-10] MEDS: PIPERACILL/TAZOBAC IV 3.375 GM in DEXTROSE 5% 100ML IV SCH ×2 (09:16→16:00)
[2016-12-10] MEDS: FUROSEMIDE INJ 40 MG in SYRINGE 0 ML IV SCH ×2 (09:21→17:13)
[2016-12-10] MEDS: INSULIN ASPART 100 UNITS/ML 3 ML PEN SC SCH ×4 (09:27→21:00)
--- NOTE | 2016-12-10 09:49 | Pulmonology Progress Note ---
Pulmonary Progress Note Date of Service Dec 10, 2016. Attending Dr. Jang Subjective Patient is feeling improved this morning. His breathing is easier. He is s/p bilateral thoracentesis. Pleural fluid analysis was benign and showed likely transudate. Labs reviewed 12/10: WBC 4.72 Hgb 9.1 CXR yesterday evening showed decrease in size of left pleural effusion s/p thoracentesis, B/L basilar opacities, small right sided pleural effusion, and mild cardiomegaly. Images viewed. Objective VS stable: Afebrile HR 72 this morning SaO2 99% on 2L nasal cannula BP 110/65 this AM CHEST ONE VIEW PORTABLE CLINICAL HISTORY: 86 years-old Male presenting with s/p thoracentesis. TECHNIQUE: Portable upright AP view of the chest was obtained. COMPARISON: 12/08/2016. FINDINGS: Right upper extremity PICC terminates in the lower SVC near the superior cavoatrial junction Median sternotomy wires with breakage of the most inferior wire and prosthetic aortic valve again noted. Atherosclerosis of the aortic arch. Cardiac silhouette mildly enlarged. Persistent bibasilar opacities. Interval decrease in left pleural effusion, now small. Persistent small right pleural effusion. No pneumothorax. Osseous structures normal. Upper abdomen normal. IMPRESSION: 1. Interval decrease in left pleural effusion status post thoracentesis. No pneumothorax. 2. Persistent bibasilar opacities, which could represent edema, infection, or aspiration. 3. Persistent small right pleural effusion. 4. Mild cardiomegaly. General: Patient is awake, alert, cooperative, and in no acute distress. Well developed. Well-nourished. Head: Normocephalic, Atraumatic. ENT: PERRLA, No discharge, EOMI, Sclera normal Neck: Normal ROM. Trachea midline. No stridor Respiratory: No respiratory distress. No accessory muscle use. Cardiovascular: Regular rate and rhythm. Back: Normal inspection. Neuro: Alert. CN II-XII grossly intact. Psych: Mood and affect are normal. Assessment & Plan Acute on chronic Systolic CHF Bilateral Pleural Effusions DM2 CAD Afib CKD Stage 3 Osteomyelitis He is overall improving from a pulmonary standpoint. He is s/p B/L thoracentesis and doing well. O2 requirements are less. No further need for intervention/changes from pulmonary standpoint. Pulm will sign off. Please call with questions/concerns. Thank you Patient was seen and examined I agree with plan. Data Medications: Current Inpatient Medications Medications (Trade) Dose Ordered Sig/Rosemarie Route Start Time Stop Time Status Last Admin Dose Admin Acetaminophen (Tylenol Tab) 650 mg Q4H PRN PO 12/06/16 12:45 01/05/17 12:44 Ondansetron HCl (Zofran Inj) 4 mg Q6H PRN IV 12/06/16 12:45 01/05/17 12:44 Enteral Nutritional Formula (Boost Breeze Nutritional Drink) 1 box DAILY PO 12/07/16 09:00 01/06/17 08:59 12/09/16 08:32 1 BOX Aspirin (Ecotrin Tab) 81 mg QAM PO 12/07/16 09:00 01/06/17 08:59 12/10/16 09:05 81 MG Folic Acid (Folvite Tab) 1 mg QAM PO 12/07/16 09:00 01/06/17 08:59 12/10/16 09:05 1 MG Insulin Glargine (Lantus Solostar Pen) 10 units HS SC 12/06/16 21:00 01/05/17 20:59 12/09/16 20:27 10 UNITS Metoprolol Tartrate (Lopressor Tab) 25 mg BID PO 12/06/16 21:00 01/05/17 20:59 12/10/16 09:07 25 MG Multivitamins/ Minerals (Multivitamin W/ Minerals Tab) 1 tab QAM PO 12/07/16 09:00 01/06/17 08:59 12/10/16 09:05 1 TAB Potassium Chloride (Klor-Con Tab) 20 meq DAILY PO 12/07/16 09:00 01/06/17 08:59 12/10/16 09:06 20 MEQ Ascorbic Acid (Vitamin C Tab) 500 mg DAILY PO 12/07/16 09:00 01/06/17 08:59 12/10/16 09:06 500 MG Cholecalciferol (Vitamin D Tab) 2,000 inter.unit QAM PO 12/07/16 09:00 01/06/17 08:59 12/10/16 09:06 2,000 INTER.UNIT Ferrous Sulfate (Feosol Tab) 325 mg TIDM PO 12/06/16 16:45 01/05/17 16:44 12/10/16 09:05 325 MG Insulin Aspart (novoLOG ASPART) SLIDING SCALE If C... ACHS SC 12/06/16 16:15 01/05/17 16:14 12/10/16 09:27 1 UNITS Glucose (Glucose 40% Gel) 15-30 GRAMS 15 GRAMS... UD PRN PO 12/06/16 13:30 01/05/17 13:29 Glucose (Glucose Chew Tab) 4-8 Tablets 4 Tabl... UD PRN PO 12/06/16 13:30 01/05/17 13:29 Dextrose (Dextrose 50% 50ML Syringe) 25-50ML OF 50% DW IV FOR... UD PRN IV 12/06/16 13:30 01/05/17 13:29 Glucagon (Glucagon Inj) 1 mg UD PRN SQ 12/06/16 13:30 01/05/17 13:29 Piperacillin Sod/ Tazobactam Sod (Consult) 1 ea UD PRN N/A 12/06/16 13:30 12/17/16 22:00 Piperacillin Sod/ Tazobactam Sod 3.375 gm/Dextrose 115 ml @ 28.75 mls/ hr Q8H IV 12/06/16 16:00 12/17/16 23:59 12/10/16 09:16 28.75 MLS/HR Heparin Sodium (Porcine) (Heparin 10 Unit/ ml 5 ml Flush) 5 ml PRN PRN FLUSH 12/06/16 22:15 01/05/17 22:14 12/08/16 04:59 5 ML Heparin Sodium (Porcine) (Heparin Sq 5000 Unit/0.5ml) 5,000 unit Q8 SQ 12/07/16 06:00 01/06/17 05:59 12/10/16 06:17 5,000 UNIT Furosemide 40 mg/ Syringe 4 ml @ 4 mls/min BID17 IV 12/07/16 17:00 01/06/17 16:59 12/10/16 09:21 4 MLS/MIN Vital Signs: Date Time Temp Pulse Resp B/P (MAP) Pulse Ox O2 Delivery O2 Flow Rate FiO2 12/10/16 07:50 36.6 72 20 110/65 (80) 99 Nasal Cannula 2.0 12/10/16 04:00 99 Nasal Cannula 2.0 12/09/16 23:59 99 Nasal Cannula 2.0 12/09/16 22:54 36.3 97 18 115/71 (86) 99 Nasal Cannula 2.0 12/09/16 20:00 Nasal Cannula 2.0 12/09/16 19:13 36.4 93 18 129/73 (91) 99 Nasal Cannula 2.0 12/09/16 16:15 36.7 72 20 123/65 (84) 95 12/09/16 16:00 Nasal Cannula 2.0 12/09/16 15:13 Nasal Cannula 2.0 12/09/16 15:11 Nasal Cannula 2.0 12/09/16 12:00 Nasal Cannula 2.0 12/09/16 11:03 36.4 68 16 118/62 (80) 95 Laboratory Results: Last 24 Hours Test 12/09/16 11:31 12/09/16 16:53 12/09/16 20:24 12/10/16 06:10 Bedside Glucose 172 mg/dl 180 mg/dl 231 mg/dl 106 mg/dl Test 12/10/16 06:12 White Blood Count 4.72 K/uL Red Blood Count 3.15 M/uL Hemoglobin 9.1 g/dL Hematocrit 28.7 % Mean Corpuscular Volume 91.1 fL Mean Corpuscular Hemoglobin 28.9 pg Mean Corpuscular Hemoglobin Concent 31.7 g/dl Platelet Count 123 K/uL Mean Platelet Volume 11.1 fL Neutrophils (%) (Auto) 75.0 % Lymphocytes (%) (Auto) 10.4 % Monocytes (%) (Auto) 11.7 % Eosinophils (%) (Auto) 2.3 % Basophils (%) (Auto) 0.4 % Neutrophils # (Auto) 3.54 K/uL Lymphocytes # (Auto) 0.49 K/uL Monocytes # (Auto) 0.55 K/uL Eosinophils # (Auto) 0.11 K/uL Basophils # (Auto) 0.02 K/uL RDW Standard Deviation 73.8 fL RDW Coefficient of Variation 21.9 % Immature Granulocyte % (Auto) 0.2 % Immature Granulocyte # (Auto) 0.01 K/uL Hypochromasia PRESENT Anisocytosis PRESENT Sodium Level 138 mmol/L Potassium Level 3.3 mmol/L Chloride Level 99 mmol/L Carbon Dioxide Level 34 mmol/L Anion Gap 5.0 mmol/L Blood Urea Nitrogen 32 mg/dl Creatinine 1.70 mg/dl Est Creatinine Clear Calc Drug Dose 31.0 ml/min Estimated GFR () 40.8 Estimated GFR (Non- 35.2 BUN/Creatinine Ratio 19.0 Random Glucose 102 mg/dl Calcium Level 8.4 mg/dl Total Bilirubin 0.5 mg/dl Aspartate Amino Transf (AST/SGOT) 30 U/L Alanine Aminotransferase (ALT/SGPT) 27 U/L Alkaline Phosphatase 63 U/L Lactate Dehydrogenase 156 U/L Total Protein 7.3 gm/dl Albumin 1.9 gm/dl Globulin 5.4 gm/dl Albumin/Globulin Ratio 0.4
--- NOTE | 2016-12-10 10:13 | Wound Consultation: Inpatient ---
Wound Consultation Date of Consultation: Dec 09, 2016. Attending Physician: David Solitario M.D. Reason for Consultation: Ulceration and gangrene fifth toe left foot History of Present Illness Patient was recently admitted to [facility]. She has been a patient at the wound center last seen 2 months ago for dry gangrene of the third digit left foot. Patient is surgically had this digit amputated. Patient now has evidence of dry gangrene of the fifth digit as well as ulcerations of the amputation site and on the plantar surface of the left foot. Patient is uncertain when these occurred. Patient denies any substantial pain. Patient denies any swelling or redness of the foot. Patient currently denies any fever chills or night sweats. Patient denies any current chest pain or shortness of breath. Patient denies any other systemic complaints. Family History Cancer BROTHER SISTER Coronary artery disease FATHER Kidney disease BROTHER Social History Smoking Status: Former Smoker Alcohol Use: none Allergies Coded Allergies: HERMAN Inhibitors (Verified Allergy, Intermediate, UNKNOWN, 11/05/16) Lisinopril (Verified Adverse Reaction, Unknown, COUGHING, 11/05/16) Home Medications Scheduled Ascorbic Acid (Vitamin C), 500 MG PO DAILY Aspirin Enteric Coated (Ecotrin Or Generic), 81 MG PO QAM Cholecalciferol (Vitamin D3), 2,000 UNITS PO QAM Epoetin Davian (Procrit), 10,000 UNITS SQ q 2 wks Ferrous Sulfate (Kp Ferrous Sulfate), 1 TAB PO TID Folic Acid (Folvite), 1 MG PO QAM Furosemide (Lasix), 20 MG PO BID Heparin Sod (Porcine) (Heparin Sodium), 5,000 UNIT SQ Q12 Insulin Aspart (Novolog Flexpen), SQ ACHS Insulin Glargine (Lantus), 10 UNITS SC HS Metoprolol Tartrate (Lopressor) (Lopressor), 25 MG PO BID Multivitamins/Minerals (Mvi With Minerals), 1 TAB PO QAM Piperacillin Sodium-Tazobactam (Zosyn), 3.375 GM IV Q8 Potassium Chloride (Klor-Con M20), 20 MEQ PO DAILY [Protein Liquid], 30 ML PO DAILY Scheduled PRN Furosemide (Furosemide), 2 MG PO DAILY PRN for SOB or worsening edema Inpatient Medications Current Inpatient Medications Medications (Trade) Dose Ordered Sig/Rosemarie Route Start Time Stop Time Status Last Admin Dose Admin Acetaminophen (Tylenol Tab) 650 mg Q4H PRN PO 12/06/16 12:45 01/05/17 12:44 Ondansetron HCl (Zofran Inj) 4 mg Q6H PRN IV 12/06/16 12:45 01/05/17 12:44 Enteral Nutritional Formula (Boost Breeze Nutritional Drink) 1 box DAILY PO 12/07/16 09:00 01/06/17 08:59 12/09/16 08:32 1 BOX Aspirin (Ecotrin Tab) 81 mg QAM PO 12/07/16 09:00 01/06/17 08:59 12/10/16 09:05 81 MG Folic Acid (Folvite Tab) 1 mg QAM PO 12/07/16 09:00 01/06/17 08:59 12/10/16 09:05 1 MG Insulin Glargine (Lantus Solostar Pen) 10 units HS SC 12/06/16 21:00 01/05/17 20:59 12/09/16 20:27 10 UNITS Metoprolol Tartrate (Lopressor Tab) 25 mg BID PO 12/06/16 21:00 01/05/17 20:59 12/10/16 09:07 25 MG Multivitamins/ Minerals (Multivitamin W/ Minerals Tab) 1 tab QAM PO 12/07/16 09:00 01/06/17 08:59 12/10/16 09:05 1 TAB Potassium Chloride (Klor-Con Tab) 20 meq DAILY PO 12/07/16 09:00 01/06/17 08:59 12/10/16 09:06 20 MEQ Ascorbic Acid (Vitamin C Tab) 500 mg DAILY PO 12/07/16 09:00 01/06/17 08:59 12/10/16 09:06 500 MG Cholecalciferol (Vitamin D Tab) 2,000 inter.unit QAM PO 12/07/16 09:00 01/06/17 08:59 12/10/16 09:06 2,000 INTER.UNIT Ferrous Sulfate (Feosol Tab) 325 mg TIDM PO 12/06/16 16:45 01/05/17 16:44 12/10/16 09:05 325 MG Insulin Aspart (novoLOG ASPART) SLIDING SCALE If C... ACHS SC 12/06/16 16:15 01/05/17 16:14 12/10/16 09:27 1 UNITS Glucose (Glucose 40% Gel) 15-30 GRAMS 15 GRAMS... UD PRN PO 12/06/16 13:30 01/05/17 13:29 Glucose (Glucose Chew Tab) 4-8 Tablets 4 Tabl... UD PRN PO 12/06/16 13:30 01/05/17 13:29 Dextrose (Dextrose 50% 50ML Syringe) 25-50ML OF 50% DW IV FOR... UD PRN IV 12/06/16 13:30 01/05/17 13:29 Glucagon (Glucagon Inj) 1 mg UD PRN SQ 12/06/16 13:30 01/05/17 13:29 Piperacillin Sod/ Tazobactam Sod (Consult) 1 ea UD PRN N/A 12/06/16 13:30 12/17/16 22:00 Piperacillin Sod/ Tazobactam Sod 3.375 gm/Dextrose 115 ml @ 28.75 mls/ hr Q8H IV 12/06/16 16:00 12/17/16 23:59 12/10/16 09:16 28.75 MLS/HR Heparin Sodium (Porcine) (Heparin 10 Unit/ ml 5 ml Flush) 5 ml PRN PRN FLUSH 12/06/16 22:15 01/05/17 22:14 12/08/16 04:59 5 ML Heparin Sodium (Porcine) (Heparin Sq 5000 Unit/0.5ml) 5,000 unit Q8 SQ 12/07/16 06:00 01/06/17 05:59 12/10/16 06:17 5,000 UNIT Furosemide 40 mg/ Syringe 4 ml @ 4 mls/min BID17 IV 12/07/16 17:00 01/06/17 16:59 12/10/16 09:21 4 MLS/MIN Physical Exam Date Time Temp Pulse Resp B/P (MAP) Pulse Ox O2 Delivery O2 Flow Rate FiO2 12/10/16 07:50 36.6 72 20 110/65 (80) 99 Nasal Cannula 2.0 12/10/16 04:00 99 Nasal Cannula 2.0 12/09/16 23:59 99 Nasal Cannula 2.0 12/09/16 22:54 36.3 97 18 115/71 (86) 99 Nasal Cannula 2.0 12/09/16 20:00 Nasal Cannula 2.0 12/09/16 19:13 36.4 93 18 129/73 (91) 99 Nasal Cannula 2.0 12/09/16 16:15 36.7 72 20 123/65 (84) 95 12/09/16 16:00 Nasal Cannula 2.0 12/09/16 15:13 Nasal Cannula 2.0 12/09/16 15:11 Nasal Cannula 2.0 12/09/16 12:00 Nasal Cannula 2.0 12/09/16 11:03 36.4 68 16 118/62 (80) 95 General: The patient is in a hospital bed in no distress. Alert, cooperative and appropriate to all questions. HEENT: Pupils equal and reactive to light. Sclera clear, EOM intact. Neck: Supple, No JVD noted Chest: CTA in all stark. No deformity Heart: RRR without murmurs, S3, S4, thrills, rubs or heaves Extremities: There is evidence of blackened dry gangrene fifth digit left foot. No active drainage at this site. There is also an ulceration at the base of the amputation site of the third toe measuring 0.8 x 0.4 x 0.1 cm no significant central slough active drainage or periwound erythema. The ulceration is present on the fourth metatarsal head plantar surface of the left foot measuring 1.3 x 0.6 x 0.5 cm. This does not probe to bone. There is no central slough active drainage or periwound erythema noted. ABIs taken back in September of this year showed the left to be 0.57 and the right be 0.67. Neurological: Alert and oriented x3. No focal deficits. Laboratory Results Last 24 Hours Test 12/09/16 11:31 12/09/16 16:53 12/09/16 20:24 12/10/16 06:10 Bedside Glucose 172 mg/dl 180 mg/dl 231 mg/dl 106 mg/dl Test 12/10/16 06:12 White Blood Count 4.72 K/uL Red Blood Count 3.15 M/uL Hemoglobin 9.1 g/dL Hematocrit 28.7 % Mean Corpuscular Volume 91.1 fL Mean Corpuscular Hemoglobin 28.9 pg Mean Corpuscular Hemoglobin Concent 31.7 g/dl Platelet Count 123 K/uL Mean Platelet Volume 11.1 fL Neutrophils (%) (Auto) 75.0 % Lymphocytes (%) (Auto) 10.4 % Monocytes (%) (Auto) 11.7 % Eosinophils (%) (Auto) 2.3 % Basophils (%) (Auto) 0.4 % Neutrophils # (Auto) 3.54 K/uL Lymphocytes # (Auto) 0.49 K/uL Monocytes # (Auto) 0.55 K/uL Eosinophils # (Auto) 0.11 K/uL Basophils # (Auto) 0.02 K/uL RDW Standard Deviation 73.8 fL RDW Coefficient of Variation 21.9 % Immature Granulocyte % (Auto) 0.2 % Immature Granulocyte # (Auto) 0.01 K/uL Hypochromasia PRESENT Anisocytosis PRESENT Sodium Level 138 mmol/L Potassium Level 3.3 mmol/L Chloride Level 99 mmol/L Carbon Dioxide Level 34 mmol/L Anion Gap 5.0 mmol/L Blood Urea Nitrogen 32 mg/dl Creatinine 1.70 mg/dl Est Creatinine Clear Calc Drug Dose 31.0 ml/min Estimated GFR () 40.8 Estimated GFR (Non- 35.2 BUN/Creatinine Ratio 19.0 Random Glucose 102 mg/dl Calcium Level 8.4 mg/dl Total Bilirubin 0.5 mg/dl Aspartate Amino Transf (AST/SGOT) 30 U/L Alanine Aminotransferase (ALT/SGPT) 27 U/L Alkaline Phosphatase 63 U/L Lactate Dehydrogenase 156 U/L Total Protein 7.3 gm/dl Albumin 1.9 gm/dl Globulin 5.4 gm/dl Albumin/Globulin Ratio 0.4 Assessment & Plan Assessment: 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 The plantar surface ulceration be dressed with Aquacel Ag and gauze changed on a daily basis the ulceration at the patient site will also be managed in the same way. The gangrenous changes in the fifth digit will be managed with Betadine. A CAT scan of the left foot will be ordered to rule out further osteomyelitic changes. Patient will require surgical consultation for amputation of the fifth digit and or further amputation depending upon the CAT scan and x-ray results. I will continue to monitor this patient during his hospitalization follow-up the outpatient clinic.
[2016-12-10 10:55] VITALS: BP 116/64; PULSE 82; TEMP 36.6; O2SAT 94
--- NOTE | 2016-12-10 12:16 | Pre-Operative Consultation ---
History General Date of Service: Dec 10, 2016. Stated Complaint: Dry gangrene left 5th toe HPI HPI: The patient is a 86 year old male being seen for dry gangrene left 5th toe. He is admitted for medical management and has elective amputation of left 5th toe scheduled for next week. He has also has a metatarsal ulcer near the 4th metatarsal head. He is treated at the wound center. The patient has his 3rd left toe amputated recently. He denies any substantial pain, fever, or chills. Historian: patient Procedure Urgency: Acute Risk Assessment Daily beta stu use?: Yes Beta Stu Details Indication Beta Stu use: hypertension, coronary heart disease Problem List Medical Problems: (1) Acute on chronic renal failure Status: Acute (2) Anemia Status: Acute (3) Cellulitis of left leg Status: Acute (4) CHF (congestive heart failure) Status: Acute (5) Hypoxia Status: Acute (6) Left-sided epistaxis Status: Acute (7) Pneumonia Status: Acute (8) Sepsis Status: Acute (9) Urinary retention Status: Acute Medical & Surgical History Past Medical History: atrial fibrillation, arthritis, congestive heart failure , COPD, coronary artery disease, diabetes, heart disease, hypertension, renal disease, vascular disease, other (cardiomyopathy) Past Surgical History: cholecystectomy (AVR; cataract; left 3rd toe amp) Family History Family History: heart disease, renal disease Social History Hx Tobacco Use In Past Year?: No (gera 1970) Smoking Status: Former Smoker Alcohol: occasionally Drug Use: none Housing status: lives with family, [facility] Immunizations Have You Had Influenza Vaccine: Yes Date Of Influenza Vaccine: Feb 06, 2016 Have You Had Tetanus Vaccine: Yes Date Of Tetanus Immunization: May 22, 2009 History of Pneumococcal: Yes Date of Pneumococcal Vaccine: Feb 06, 2016 Allergies Allergies: Coded Allergies: HERMAN Inhibitors (Verified Allergy, Intermediate, UNKNOWN, 11/05/16) Lisinopril (Verified Adverse Reaction, Unknown, COUGHING, 11/05/16) Medications Current Inpatient Medications Current Inpatient Medications Medications (Trade) Dose Ordered Sig/Rosemarie Route Start Time Stop Time Status Last Admin Dose Admin Acetaminophen (Tylenol Tab) 650 mg Q4H PRN PO 12/06/16 12:45 01/05/17 12:44 Ondansetron HCl (Zofran Inj) 4 mg Q6H PRN IV 12/06/16 12:45 01/05/17 12:44 Enteral Nutritional Formula (Boost Breeze Nutritional Drink) 1 box DAILY PO 12/07/16 09:00 01/06/17 08:59 12/09/16 08:32 1 BOX Aspirin (Ecotrin Tab) 81 mg QAM PO 12/07/16 09:00 01/06/17 08:59 12/10/16 09:05 81 MG Folic Acid (Folvite Tab) 1 mg QAM PO 12/07/16 09:00 01/06/17 08:59 12/10/16 09:05 1 MG Insulin Glargine (Lantus Solostar Pen) 10 units HS SC 12/06/16 21:00 01/05/17 20:59 12/09/16 20:27 10 UNITS Metoprolol Tartrate (Lopressor Tab) 25 mg BID PO 12/06/16 21:00 01/05/17 20:59 12/10/16 09:07 25 MG Multivitamins/ Minerals (Multivitamin W/ Minerals Tab) 1 tab QAM PO 12/07/16 09:00 01/06/17 08:59 12/10/16 09:05 1 TAB Potassium Chloride (Klor-Con Tab) 20 meq DAILY PO 12/07/16 09:00 01/06/17 08:59 12/10/16 09:06 20 MEQ Ascorbic Acid (Vitamin C Tab) 500 mg DAILY PO 12/07/16 09:00 01/06/17 08:59 12/10/16 09:06 500 MG Cholecalciferol (Vitamin D Tab) 2,000 inter.unit QAM PO 12/07/16 09:00 01/06/17 08:59 12/10/16 09:06 2,000 INTER.UNIT Ferrous Sulfate (Feosol Tab) 325 mg TIDM PO 12/06/16 16:45 01/05/17 16:44 12/10/16 09:05 325 MG Insulin Aspart (novoLOG ASPART) SLIDING SCALE If C... ACHS SC 12/06/16 16:15 01/05/17 16:14 12/10/16 09:27 1 UNITS Glucose (Glucose 40% Gel) 15-30 GRAMS 15 GRAMS... UD PRN PO 12/06/16 13:30 01/05/17 13:29 Glucose (Glucose Chew Tab) 4-8 Tablets 4 Tabl... UD PRN PO 12/06/16 13:30 01/05/17 13:29 Dextrose (Dextrose 50% 50ML Syringe) 25-50ML OF 50% DW IV FOR... UD PRN IV 12/06/16 13:30 01/05/17 13:29 Glucagon (Glucagon Inj) 1 mg UD PRN SQ 12/06/16 13:30 01/05/17 13:29 Piperacillin Sod/ Tazobactam Sod (Consult) 1 ea UD PRN N/A 12/06/16 13:30 12/17/16 22:00 Piperacillin Sod/ Tazobactam Sod 3.375 gm/Dextrose 115 ml @ 28.75 mls/ hr Q8H IV 12/06/16 16:00 12/17/16 23:59 12/10/16 09:16 28.75 MLS/HR Heparin Sodium (Porcine) (Heparin 10 Unit/ ml 5 ml Flush) 5 ml PRN PRN FLUSH 12/06/16 22:15 01/05/17 22:14 12/08/16 04:59 5 ML Heparin Sodium (Porcine) (Heparin Sq 5000 Unit/0.5ml) 5,000 unit Q8 SQ 12/07/16 06:00 01/06/17 05:59 12/10/16 06:17 5,000 UNIT Furosemide 40 mg/ Syringe 4 ml @ 4 mls/min BID17 IV 12/07/16 17:00 01/06/17 16:59 12/10/16 09:21 4 MLS/MIN Review of Systems Review of Systems Constitutional: denies chills, denies diaphoresis, denies fever Eyes: reports: no symptoms ENT: reports: no symptoms reported Cardiovascular: denies: chest pain, chest tightness, chest pressure Respiratory: reports: short of breath, denies: stridor, wheezing Gastrointestinal: denies abdominal pain, denies constipation, denies diarrhea, denies nausea Genitourinary - Male: reports: no symptoms Musculoskeletal: denies back pain, joint pain, joint swelling, muscle stiffness Integumentary: change in color, change in hair/nails Neurologic: reports: no symptoms Psychiatric: reports: no symptoms Endocrine: no symptoms Hematologic / Lymphatic: anemia, easy bleeding, easy bruising Allergic / Immunologic: no symptoms Physical Exam Physical Exam General Appearance: + WD/WN, No distress Ears, Nose, Throat: + normal ENT inspection Neck: No abnormal inspection, No tracheal deviation, No lymphadenophy, No stiffness, No tenderness Respiratory: + decreased breath sounds, No chest tenderness Cardiovascular: + abnormal rhythm, No gallop/S3, No diastolic murmur, No gallop /S4, No systolic murmur Abdomen: No abnormal bowel sounds, No tenderness, No distension, No organomegaly Extremities: + deformity (left 3rd toe amp), + other (left 5th toe dry gangrene ) Neurologic/Psychiatric: No motor deficit/weakness, No disorientation, No sensory deficit Skin Characteristics: + abnormal color, + cyanosis, No diaphoresis Lymphatic: No abnormal adenopathy Diagnostics Labs Labs Results Past 24 Hours Test 12/09/16 16:53 12/09/16 20:24 12/10/16 06:10 12/10/16 06:12 Range/Units Bedside Glucose 180 231 106 70-99 mg/dl White Blood Count 4.72 4.8-10.8 K/uL Red Blood Count 3.15 4.7-6.1 M/uL Hemoglobin 9.1 14.0-18.0 g/dL Hematocrit 28.7 42-52 % Mean Corpuscular Volume 91.1 80-100 fL Mean Corpuscular Hemoglobin 28.9 25-34 pg Mean Corpuscular Hemoglobin Concent 31.7 32-36 g/dl Platelet Count 123 130-400 K/uL Mean Platelet Volume 11.1 7.4-10.4 fL Neutrophils (%) (Auto) 75.0 % Lymphocytes (%) (Auto) 10.4 % Monocytes (%) (Auto) 11.7 % Eosinophils (%) (Auto) 2.3 % Basophils (%) (Auto) 0.4 % Neutrophils # (Auto) 3.54 1.4-6.5 K/uL Lymphocytes # (Auto) 0.49 1.2-3.4 K/uL Monocytes # (Auto) 0.55 0.11-0.59 K/uL Eosinophils # (Auto) 0.11 0-0.5 K/uL Basophils # (Auto) 0.02 0-0.2 K/uL RDW Standard Deviation 73.8 36.4-46.3 fL RDW Coefficient of Variation 21.9 11.5-14.5 % Immature Granulocyte % (Auto) 0.2 % Immature Granulocyte # (Auto) 0.01 0.00-0.02 K/uL Hypochromasia PRESENT Anisocytosis PRESENT Sodium Level 138 136-145 mmol/L Potassium Level 3.3 3.5-5.1 mmol/L Chloride Level 99 98-107 mmol/L Carbon Dioxide Level 34 21-32 mmol/L Anion Gap 5.0 3-11 mmol/L Blood Urea Nitrogen 32 7-18 mg/dl Creatinine 1.70 0.60-1.40 mg/dl Est Creatinine Clear Calc Drug Dose 31.0 ml/min Estimated GFR () 40.8 Estimated GFR (Non- 35.2 BUN/Creatinine Ratio 19.0 10-20 Random Glucose 102 70-99 mg/dl Calcium Level 8.4 8.5-10.1 mg/dl Total Bilirubin 0.5 0.2-1 mg/dl Aspartate Amino Transf (AST/SGOT) 30 15-37 U/L Alanine Aminotransferase (ALT/SGPT) 27 12-78 U/L Alkaline Phosphatase 63 45-117 U/L Lactate Dehydrogenase 156 87-241 U/L Total Protein 7.3 6.4-8.2 gm/dl Albumin 1.9 3.4-5.0 gm/dl Globulin 5.4 2.5-4.0 gm/dl Albumin/Globulin Ratio 0.4 0.9-2 Test 12/10/16 11:00 Range/Units Bedside Glucose 174 70-99 mg/dl Microbiology Results 12/10/16 Blood Culture, Ordered Pending 12/10/16 Blood Culture, Ordered Pending Diagnostic Radiology Diagnostic Radiology L LOWER EXTREMITY WITHOUT CLINICAL HISTORY: 86 years-old Male presenting with ulcer and gangrene foot, concern for osteomyelitis. TECHNIQUE: Multidetector CT of the left foot was performed without the use of intravenous contrast. IV contrast: None. A dose lowering technique was used consistent with the principles of ALARA (as low as reasonably achievable). COMPARISON: Plain radiographs of the left foot from 12/09/2016. CT DOSE (mGy.cm): The estimated cumulative dose is 187.76 mGy.cm. FINDINGS: News Library Director topogram: Unremarkable. Subluxation and degenerative change with complete joint space loss and osteophytosis at the first metatarsophalangeal joint. Deformity of the tuft of the distal phalanx of the first toe, consistent with acrolysis. Soft tissue defect noted at the third toe. Osseous dissolution of the proximal phalanx of the third toe with absence of the middle and distal phalanges of the third toe. Slight erosion at the base of the proximal phalanx of the third toe suggest involvement of the third metatarsophalangeal joint. Questionable erosion of the heads of the second and third metatarsals. Cortical discontinuity at the base of the proximal phalanx of the fourth toe suggest minimally displaced fracture (series 3 image 279). Diffuse subcutaneous edema. Allowing for noncontrast technique, no gross evidence of a fluid collection. IMPRESSION: 1. Findings consistent with osteomyelitis of the proximal phalanx of the third toe with concern for septic arthritis of the third metatarsophalangeal joint. This be better demonstrated on MR. 2. Suspicion for septic arthritis/osteomyelitis of the head of the second metatarsal and second metatarsophalangeal joint. 3. Findings concerning for minimally displaced fracture of the base of the proximal phalanx of the fourth toe. 4. Extensive degenerative changes of the first metatarsophalangeal joint. 5. Acrolysis of the tuft of the first toe. Impression Assessment and Plan Assessment and Plan Left foot osteomyelitis/dry gangrene left 5th toe -con't IV abx -con't dressings per wound care -if medically optimzed will need toe amp scheduled for next with Dr Ahumada; may need more of an amputation
[2016-12-10 15:31] VITALS: BP 121/70; PULSE 91; TEMP 36.7; O2SAT 100
--- NOTE | 2016-12-10 15:32 | Medical Consult ---
Consultation Date of Consultation: Dec 10, 2016. Attending Physician: David Solitario M.D. Reason for Consultation: Osteomyelitis History of Present Illness 86-year-old male well known to me from previous infectious disease consultations, with history of severe peripheral vascular disease, status post amputation of left 3rd toe for gangrene, status post treatment of septic arthritis of the knee, who now presents with evidence of worsening left foot infection and gangrenous changes. Patient was scheduled for amputation of the 5th toe electively next week. He has now been admitted for worsening infection , with evidence of osteomyelitis on recent scanning. He denies any associated fever or chills. Pain is minimal. He had previously been on daptomycin therapy and Zosyn, Zosyn has been continued. Past Medical/Surgical History Medical Problems: (1) Acute on chronic renal failure Status: Acute (2) Anemia Status: Acute (3) Cellulitis of left leg Status: Acute (4) CHF (congestive heart failure) Status: Acute (5) Hypoxia Status: Acute (6) Left-sided epistaxis Status: Acute (7) Pneumonia Status: Acute (8) Sepsis Status: Acute (9) Urinary retention Status: Acute Medical Problems: (1) Aortic stenosis (2) Atrial fibrillation (3) Carotid arterial disease (4) CKD (chronic kidney disease), stage III (5) Diabetes mellitus, type 2 (6) Diabetic peripheral neuropathy associated with type 2 diabetes mellitus (7) Dyslipidemia (8) History of adenomatous polyp of colon (9) History of diabetic ulcer of foot (10) Hypertension (11) Peripheral vascular disease (12) Rheumatoid arthritis (13) Septic joint of left knee joint (14) Systolic and diastolic CHF, chronic (15) Volume overload Surgical Problems: (1) Status post amputation of toe of left foot (2) Status post amputation of toe of right foot (3) Status post aortic valve replacement with bioprosthetic valve (4) Status post cataract extraction (5) Status post cholecystectomy (6) Status post coronary artery bypass grafting Family History Cancer BROTHER SISTER Coronary artery disease FATHER Kidney disease BROTHER Social History Smoking Status: Former Smoker Alcohol Use: none Drug Use: none Allergies Coded Allergies: HERMAN Inhibitors (Verified Allergy, Intermediate, UNKNOWN, 11/05/16) Lisinopril (Verified Adverse Reaction, Unknown, COUGHING, 11/05/16) Current Inpatient Medications Current Inpatient Medications Medications (Trade) Dose Ordered Sig/Rosemarie Route Start Time Stop Time Status Last Admin Dose Admin Acetaminophen (Tylenol Tab) 650 mg Q4H PRN PO 12/06/16 12:45 01/05/17 12:44 Ondansetron HCl (Zofran Inj) 4 mg Q6H PRN IV 12/06/16 12:45 01/05/17 12:44 Enteral Nutritional Formula (Boost Breeze Nutritional Drink) 1 box DAILY PO 12/07/16 09:00 01/06/17 08:59 12/10/16 09:00 1 BOX Aspirin (Ecotrin Tab) 81 mg QAM PO 12/07/16 09:00 01/06/17 08:59 12/10/16 09:05 81 MG Folic Acid (Folvite Tab) 1 mg QAM PO 12/07/16 09:00 01/06/17 08:59 12/10/16 09:05 1 MG Insulin Glargine (Lantus Solostar Pen) 10 units HS SC 12/06/16 21:00 01/05/17 20:59 12/09/16 20:27 10 UNITS Metoprolol Tartrate (Lopressor Tab) 25 mg BID PO 12/06/16 21:00 01/05/17 20:59 12/10/16 09:07 25 MG Multivitamins/ Minerals (Multivitamin W/ Minerals Tab) 1 tab QAM PO 12/07/16 09:00 01/06/17 08:59 12/10/16 09:05 1 TAB Potassium Chloride (Klor-Con Tab) 20 meq DAILY PO 12/07/16 09:00 01/06/17 08:59 12/10/16 09:06 20 MEQ Ascorbic Acid (Vitamin C Tab) 500 mg DAILY PO 12/07/16 09:00 01/06/17 08:59 12/10/16 09:06 500 MG Cholecalciferol (Vitamin D Tab) 2,000 inter.unit QAM PO 12/07/16 09:00 01/06/17 08:59 12/10/16 09:06 2,000 INTER.UNIT Ferrous Sulfate (Feosol Tab) 325 mg TIDM PO 12/06/16 16:45 01/05/17 16:44 12/10/16 12:18 325 MG Insulin Aspart (novoLOG ASPART) SLIDING SCALE If C... ACHS SC 12/06/16 16:15 01/05/17 16:14 12/10/16 12:21 3 UNITS Glucose (Glucose 40% Gel) 15-30 GRAMS 15 GRAMS... UD PRN PO 12/06/16 13:30 01/05/17 13:29 Glucose (Glucose Chew Tab) 4-8 Tablets 4 Tabl... UD PRN PO 12/06/16 13:30 01/05/17 13:29 Dextrose (Dextrose 50% 50ML Syringe) 25-50ML OF 50% DW IV FOR... UD PRN IV 12/06/16 13:30 01/05/17 13:29 Glucagon (Glucagon Inj) 1 mg UD PRN SQ 12/06/16 13:30 01/05/17 13:29 Piperacillin Sod/ Tazobactam Sod (Consult) 1 ea UD PRN N/A 12/06/16 13:30 12/17/16 22:00 Piperacillin Sod/ Tazobactam Sod 3.375 gm/Dextrose 115 ml @ 28.75 mls/ hr Q8H IV 12/06/16 16:00 12/17/16 23:59 12/10/16 09:16 28.75 MLS/HR Heparin Sodium (Porcine) (Heparin 10 Unit/ ml 5 ml Flush) 5 ml PRN PRN FLUSH 12/06/16 22:15 01/05/17 22:14 12/08/16 04:59 5 ML Heparin Sodium (Porcine) (Heparin Sq 5000 Unit/0.5ml) 5,000 unit Q8 SQ 12/07/16 06:00 01/06/17 05:59 12/10/16 14:37 5,000 UNIT Furosemide 40 mg/ Syringe 4 ml @ 4 mls/min BID17 IV 12/07/16 17:00 01/06/17 16:59 12/10/16 09:21 4 MLS/MIN Review of Systems All systems were reviewed and are negative except as per HPI Physical Exam Date Time Temp Pulse Resp B/P (MAP) Pulse Ox O2 Delivery O2 Flow Rate FiO2 12/10/16 12:00 Nasal Cannula 2.0 12/10/16 10:55 36.6 82 16 116/64 (81) 94 Nasal Cannula 2.0 12/10/16 08:00 Nasal Cannula 2.0 12/10/16 07:50 36.6 72 20 110/65 (80) 99 Nasal Cannula 2.0 12/10/16 04:00 99 Nasal Cannula 2.0 12/09/16 23:59 99 Nasal Cannula 2.0 12/09/16 22:54 36.3 97 18 115/71 (86) 99 Nasal Cannula 2.0 12/09/16 20:00 Nasal Cannula 2.0 12/09/16 19:13 36.4 93 18 129/73 (91) 99 Nasal Cannula 2.0 12/09/16 16:15 36.7 72 20 123/65 (84) 95 12/09/16 16:00 Nasal Cannula 2.0 General Appearance: WD/WN, no apparent distress Head: normocephalic, atraumatic Eyes: normal inspection, EOMI, sclerae normal ENT: normal ENT inspection, pharynx normal Neck: supple, no adenopathy, thyroid normal, trachea midline Respiratory/Chest: chest non-tender, lungs clear, normal breath sounds, no respiratory distress Cardiovascular: regular rate, rhythm, no gallop, no murmur Abdomen/GI: normal bowel sounds, non tender, soft, no organomegaly Back: normal inspection, no CVA tenderness Extremities/Musculoskelatal: + pedal edema, + slow capillary refill, + pertinent finding ( gangrenous left 5th toe) Neurologic/Psych: alert, oriented x 3 Skin: normal color, no rash, + pertinent finding ( gangrenous left 5th toe, drainage between 4th and 5th toe, plantar ulcer without surrounding erythema) Lymphatic: no adenopathy Laboratory Results Date/Time Source Procedure Growth Status 12/10/16 12:14 Blood Blood Culture Pending Received 12/10/16 12:10 Blood Blood Culture Pending Received Last 24 Hours Test 12/09/16 16:53 12/09/16 20:24 12/10/16 00:00 12/10/16 06:10 Bedside Glucose 180 mg/dl 231 mg/dl 106 mg/dl Test 12/10/16 06:12 12/10/16 11:00 White Blood Count 4.72 K/uL Red Blood Count 3.15 M/uL Hemoglobin 9.1 g/dL Hematocrit 28.7 % Mean Corpuscular Volume 91.1 fL Mean Corpuscular Hemoglobin 28.9 pg Mean Corpuscular Hemoglobin Concent 31.7 g/dl Platelet Count 123 K/uL Mean Platelet Volume 11.1 fL Neutrophils (%) (Auto) 75.0 % Lymphocytes (%) (Auto) 10.4 % Monocytes (%) (Auto) 11.7 % Eosinophils (%) (Auto) 2.3 % Basophils (%) (Auto) 0.4 % Neutrophils # (Auto) 3.54 K/uL Lymphocytes # (Auto) 0.49 K/uL Monocytes # (Auto) 0.55 K/uL Eosinophils # (Auto) 0.11 K/uL Basophils # (Auto) 0.02 K/uL RDW Standard Deviation 73.8 fL RDW Coefficient of Variation 21.9 % Immature Granulocyte % (Auto) 0.2 % Immature Granulocyte # (Auto) 0.01 K/uL Hypochromasia PRESENT Anisocytosis PRESENT Sodium Level 138 mmol/L Potassium Level 3.3 mmol/L Chloride Level 99 mmol/L Carbon Dioxide Level 34 mmol/L Anion Gap 5.0 mmol/L Blood Urea Nitrogen 32 mg/dl Creatinine 1.70 mg/dl Est Creatinine Clear Calc Drug Dose 31.0 ml/min Estimated GFR () 40.8 Estimated GFR (Non- 35.2 BUN/Creatinine Ratio 19.0 Random Glucose 102 mg/dl Calcium Level 8.4 mg/dl Total Bilirubin 0.5 mg/dl Aspartate Amino Transf (AST/SGOT) 30 U/L Alanine Aminotransferase (ALT/SGPT) 27 U/L Alkaline Phosphatase 63 U/L Lactate Dehydrogenase 156 U/L Total Protein 7.3 gm/dl Albumin 1.9 gm/dl Globulin 5.4 gm/dl Albumin/Globulin Ratio 0.4 Bedside Glucose 174 mg/dl Patient Name: MIGUEL GAFFNEY Unit Number: [id number] Dictated: 12/09/161817 Transcribed: 12/09/161817 PBS Printed Date/Time: [~ rep prt dt]/[~ rep prt tm] [~ rep ct labl] - [~ rep ct ivnm] [facility] Radiology Department [place], [place] [id number] Dictated: 12/09/161817 Transcribed: 12/09/161817 PBS Printed Date/Time: [~ rep prt dt]/[~ rep prt tm] [~ rep ct labl] - [~ rep ct ivnm] [~ rep ct add3]] L LOWER EXTREMITY WITHOUT CLINICAL HISTORY: 86 years-old Male presenting with ulcer and gangrene foot, concern for osteomyelitis. TECHNIQUE: Multidetector CT of the left foot was performed without the use of intravenous contrast. IV contrast: None. A dose lowering technique was used consistent with the principles of ALARA (as low as reasonably achievable). COMPARISON: Plain radiographs of the left foot from 12/09/2016. CT DOSE (mGy.cm): The estimated cumulative dose is 187.76 mGy.cm. FINDINGS: Statistical Technician topogram: Unremarkable. Subluxation and degenerative change with complete joint space loss and osteophytosis at the first metatarsophalangeal joint. Deformity of the tuft of the distal phalanx of the first toe, consistent with acrolysis. Soft tissue defect noted at the third toe. Osseous dissolution of the proximal phalanx of the third toe with absence of the middle and distal phalanges of the third toe. Slight erosion at the base of the proximal phalanx of the third toe suggest involvement of the third metatarsophalangeal joint. Questionable erosion of the heads of the second and third metatarsals. Cortical discontinuity at the base of the proximal phalanx of the fourth toe suggest minimally displaced fracture (series 3 image 279). Diffuse subcutaneous edema. Allowing for noncontrast technique, no gross evidence of a fluid collection. IMPRESSION: 1. Findings consistent with osteomyelitis of the proximal phalanx of the third toe with concern for septic arthritis of the third metatarsophalangeal joint. This be better demonstrated on MR. 2. Suspicion for septic arthritis/osteomyelitis of the head of the second metatarsal and second metatarsophalangeal joint. 3. Findings concerning for minimally displaced fracture of the base of the proximal phalanx of the fourth toe. 4. Extensive degenerative changes of the first metatarsophalangeal joint. 5. Acrolysis of the tuft of the first toe. Electronically signed by: Xavier Lopez M.D. 12/09/2016 6:30 PM Dictated Date/Time: 12/09/2016 6:18 PM The status of this report is Signed. Draft = Not yet reviewed or approved by Radiologist. Signed = Reviewed and approved by Radiologist. <AttendingPhy>Solitario, David K., M.D.</AttendingPhy> <FamilyPhy>[place]</ FamilyPhy> <PrimaryPhy>[place]</PrimaryPhy> <UnitNumber>[id number]</ UnitNumber> <VisitNumber>[id number]</VisitNumber> <PatientName>GULSHAN MIGUEL Jacobs JR</PatientName> <DateOfBirth>1930</DateOfBirth> <Location>C.[facility]< /Location> <ServiceDate></ServiceDate> <MNE>ESINDI</MNE> <OrderingPhy>Morteza Mckeon D.O.</OrderingPhy> <OrderingPhyMNE>f rep ord dr varela</OrderingPhyMNE> < DictatingPhyMNE>f rep dict dr varela</DictatingPhyMNE> <CCListMNE>f rep ct mne</ CCListMNE> <AdmittingPhyMNE>f pt admit dr varela</AdmittingPhyMNE> <AttendingPhyMNE >f pt attend dr varela</AttendingPhyMNE> <ConsultingPhyMNE>f pt consult dr varela</ConsultingPhyMNE> <FamilyPhyMNE>f pt fam dr varela</FamilyPhyMNE> <OtherPhyMNE>f pt other dr varela</OtherPhyMNE> < PrimaryPhyMNE>f pt prim care dr varela</PrimaryPhyMNE> <ReferringPhyMNE>f pt referring dr varela</ReferringPhyMNE> Assessment & Plan Osteomyelitis left foot/toes with dry gangrene left 5th toe in setting of severe PAD. Agree with need for amputation, suspect will require more than 5th toe. Continue Zosyn, daptomycin restarted. Will discuss.
--- NOTE | 2016-12-10 17:39 | Progress Note ---
Internal Med Progress Note Date of Service: Dec 10, 2016. Provider Documentation: SUBJECTIVE: patient breathing on nasal cannula. denies chest pain or difficulties with breathing. OBJECTIVE: General Appearance: no apparent distress Head: normocephalic Eyes: normal inspection, sclerae normal ENT: hearing grossly normal, nasal cannula Neck: supple Respiratory/Chest: no respiratory distress, good air entry, some crackles audible Cardiovascular: regular rate, rhythm Abdomen/GI: normal bowel sounds, non tender, soft, + distended Extremities: normal inspection, no calf tenderness, +3 pitting edema in bilateral lower extremities Neurologic/Psych: no motor/sensory deficits, alert, oriented x 3 Skin: left 5th toe with eschar; small amount of drainage between 5th and 4th toes; ulcer noted on the plantar surface of the left foot without erythema or drainage ASSESSMENT & PLAN: 86 year old male who was sent to the hospital as a direct admission from [facility] for volume overload. Patient has been admitted to [facility] three times recently. First was 08/20 - 09/04 for PAD with left foot gangrene and left knee septic arthritis. Patient underwent endarterectomy of the left leg and also left knee arthroscopic irrigation and debridement. Synovial fluid was positive for micrococcus species. Patient was discharged on IV Dapto and Ertapenem for 4 weeks of therapy. Patient was then readmitted 09/19 - 09/27 for severe sepsis likely due to pneumonia. While admitted, Ertapenem was changed to Zosyn and patient completed 7 days of therapy. Due to the left knee septic arthritis and gangrene left toe infection, patient was discharged on IV Dapto to complete the initial 4 weeks of therapy. On 10/19, patient underwent left 3rd toe amputation by Dr. Jefferson. Post operatively, the patient developed increased redness and drainage and was readmitted to [facility] 11/05 - 11/11 for wound infection / ongoing osteomyelitis. Wound culture grew E. Coli and Pseudomonas and patient was discharged on Zosyn to complete treatment on 12/17. ACUTE ON CHRONIC SYSTOLIC CHF, ISCHEMIC CARDIOMYOPATHY echo 09/2016 - EF 35-40%; BL PLEURAL EFFUSIONS - directly admitted to [facility] from [facility] after shortness of breath and lower extremity edema x 2 weeks - home diuretic dose - 20mg PO BID with an additional tab daily PRN - Lasix IV BID as inpatient - strict I/Os, matos, daily weights, low Na+ diet Respiratory: - cardiology evaluated on 12/07/16 and requested pulmonary to try to do thoracentesis (Sonography of the right hemithorax revealed a large right pleural effusion with estimated volume of 1565 cc. Sonography of the left hemithorax revealed a large left pleural effusion with estimated volume of 1209 cc) -s/p right sided thoracentesis on 12/08/16 -s/p left sided thoracentesis on 12/09/16 CAD - stable, continue ASA and beta norma ATRIAL FIBRILLATION - rate controlled on beta norma - Coumadin stopped due to epistaxis and unsteady gait Electrolytes: monitor and replete electrolytes because of diuretic use CKD STAGE III - continue to monitor, avoid nephrotoxic agents when able, diuresis may increase creatinine LEFT 3RD TOE AMPUTATION SITE OSTEOMYELITIS, LEFT 5TH TOE ESCHAR, LEFT PLANTAR SURFACE ULCER - on admission patient was already on Zosyn IV with expected to completion course on 12/17/16 - scheduled for left 5th amputation on 12/[address] Ahumada - continue IV Zosyn - wound rn progressive care ordered lower extremity imaging including CT scan: "1. Findings consistent with osteomyelitis of the proximal phalanx of the third toe with concern for septic arthritis of the third metatarsophalangeal joint. This be better demonstrated on MR. 2. Suspicion for septic arthritis/osteomyelitis of the head of the second metatarsal and second metatarsophalangeal joint. 3. Findings concerning for minimally displaced fracture of the base of the proximal phalanx of the fourth toe. 4. Extensive degenerative changes of the first metatarsophalangeal joint. 5. Acrolysis of the tuft of the first toe." -have obtained surgery consultation -ID recommended starting daptomycin on 12/10/16 in addition to patient already on Zosyn IV DM - Hba1c 6.5 09/2016 - Lantus + SSI ANEMIA - chronic, hgb at baseline, likely anemia of chronic disease Stg II Sacral Decub-POA, Optifoam applied, EHOB mattress ordered. Wound care consulted. DVT PROPHYLAXIS - SQ Heparin CODE STATUS - Patient is DNR Vital Signs: Date Time Temp Pulse Resp B/P (MAP) Pulse Ox O2 Delivery O2 Flow Rate FiO2 12/10/16 17:23 Nasal Cannula 2.0 12/10/16 15:31 36.7 91 18 121/70 (87) 100 Nasal Cannula 2.0 12/10/16 12:00 Nasal Cannula 2.0 12/10/16 10:55 36.6 82 16 116/64 (81) 94 Nasal Cannula 2.0 12/10/16 08:00 Nasal Cannula 2.0 12/10/16 07:50 36.6 72 20 110/65 (80) 99 Nasal Cannula 2.0 12/10/16 04:00 99 Nasal Cannula 2.0 12/09/16 23:59 99 Nasal Cannula 2.0 12/09/16 22:54 36.3 97 18 115/71 (86) 99 Nasal Cannula 2.0 12/09/16 20:00 Nasal Cannula 2.0 12/09/16 19:13 36.4 93 18 129/73 (91) 99 Nasal Cannula 2.0 Lab Results: Results Past 24 Hours Test 12/09/16 20:24 12/10/16 00:00 12/10/16 06:10 12/10/16 06:12 Range/Units Bedside Glucose 231 106 70-99 mg/dl White Blood Count 4.72 4.8-10.8 K/uL Red Blood Count 3.15 4.7-6.1 M/uL Hemoglobin 9.1 14.0-18.0 g/dL Hematocrit 28.7 42-52 % Mean Corpuscular Volume 91.1 80-100 fL Mean Corpuscular Hemoglobin 28.9 25-34 pg Mean Corpuscular Hemoglobin Concent 31.7 32-36 g/dl Platelet Count 123 130-400 K/uL Mean Platelet Volume 11.1 7.4-10.4 fL Neutrophils (%) (Auto) 75.0 % Lymphocytes (%) (Auto) 10.4 % Monocytes (%) (Auto) 11.7 % Eosinophils (%) (Auto) 2.3 % Basophils (%) (Auto) 0.4 % Neutrophils # (Auto) 3.54 1.4-6.5 K/uL Lymphocytes # (Auto) 0.49 1.2-3.4 K/uL Monocytes # (Auto) 0.55 0.11-0.59 K/uL Eosinophils # (Auto) 0.11 0-0.5 K/uL Basophils # (Auto) 0.02 0-0.2 K/uL RDW Standard Deviation 73.8 36.4-46.3 fL RDW Coefficient of Variation 21.9 11.5-14.5 % Immature Granulocyte % (Auto) 0.2 % Immature Granulocyte # (Auto) 0.01 0.00-0.02 K/uL Hypochromasia PRESENT Anisocytosis PRESENT Sodium Level 138 136-145 mmol/L Potassium Level 3.3 3.5-5.1 mmol/L Chloride Level 99 98-107 mmol/L Carbon Dioxide Level 34 21-32 mmol/L Anion Gap 5.0 3-11 mmol/L Blood Urea Nitrogen 32 7-18 mg/dl Creatinine 1.70 0.60-1.40 mg/dl Est Creatinine Clear Calc Drug Dose 31.0 ml/min Estimated GFR () 40.8 Estimated GFR (Non- 35.2 BUN/Creatinine Ratio 19.0 10-20 Random Glucose 102 70-99 mg/dl Calcium Level 8.4 8.5-10.1 mg/dl Total Bilirubin 0.5 0.2-1 mg/dl Aspartate Amino Transf (AST/SGOT) 30 15-37 U/L Alanine Aminotransferase (ALT/SGPT) 27 12-78 U/L Alkaline Phosphatase 63 45-117 U/L Lactate Dehydrogenase 156 87-241 U/L Total Protein 7.3 6.4-8.2 gm/dl Albumin 1.9 3.4-5.0 gm/dl Globulin 5.4 2.5-4.0 gm/dl Albumin/Globulin Ratio 0.4 0.9-2 Test 12/10/16 11:00 12/10/16 16:27 Range/Units Bedside Glucose 174 173 70-99 mg/dl Microbiology Results 12/10/16 Blood Culture, Received Pending 12/10/16 Blood Culture, Received Pending
[2016-12-10 20:53] VITALS: BP 121/85; PULSE 86; TEMP 36.6; O2SAT 100
[2016-12-10] MEDS: DAPTOmycin IV 500 MG in SODIUM CHLORIDE 0.9% 50ML 50 ML IV SCH (21:12)
[2016-12-10] MEDS: INSULIN GLARGINE SOLOSTAR 100 UNITS/ML 3 ML PEN SC SCH (21:15)
[2016-12-11] VITALS (11 sets, daily range): BP systolic 102–143; BP diastolic 58–89; PULSE 58–90; TEMP 36.3–37; O2SAT 92–98
[2016-12-11 05:25] LABS: EOS % 0.9 %; HEMATOCRIT 28.7 % (42-52); LYMPH % 10.5 %; LYMPH ABS # 0.47 K/uL (1.2-3.4); MEAN CELL VOLUME 92.3 fL (80-100); MEAN CORPUSCULAR HEMOGLOBIN 27.7 pg (25-34); MEAN PLATELET VOLUME 10.4 fL (7.4-10.4); NEUT % 76.6 %; PLATELET COUNT 116 K/uL (130-400); RED BLOOD COUNT 3.11 M/uL (4.7-6.1); WHITE BLOOD COUNT 4.49 K/uL (4.8-10.8)
[2016-12-11 05:48] LABS: BUN/CREATININE RATIO 19.1 (10-20); CALCIUM 8.1 mg/dl (8.5-10.1); CREATININE 1.7 mg/dl (0.60-1.40); POTASSIUM 3.3 mmol/L (3.5-5.1)
[2016-12-11 05:51] LABS: ALB/GLOB RATIO 0.4 (0.9-2)
[2016-12-11 06:01] LABS: ANISOCYTOSIS PRESENT; COMPLETE YES; HYPOCHROMIA PRESENT
[2016-12-11] MEDS: INSULIN ASPART 100 UNITS/ML 3 ML PEN SC SCH ×4 (07:00→21:47)
[2016-12-11] MEDS: HEPARIN SOD 5000 UNIT/0.5 ML CARP SQ SCH (07:02)
[2016-12-11] MEDS: PIPERACILL/TAZOBAC IV 3.375 GM in DEXTROSE 5% 100ML IV SCH ×4 (08:01→16:43)
[2016-12-11] MEDS: FERROUS SULFATE 325 MG TAB PO SCH ×3 (08:01→16:42)
[2016-12-11] MEDS: FUROSEMIDE INJ 40 MG in SYRINGE 0 ML IV SCH ×2 (08:01→16:42)
[2016-12-11] MEDS: ASPIRIN 81 MG ECTAB PO SCH (08:02)
[2016-12-11] MEDS: POTASSIUM CHLORIDE 20 MEQ TABCR PO SCH (08:02)
[2016-12-11] MEDS: ASCORBIC ACID 500 MG TAB PO SCH (08:02)
[2016-12-11] MEDS: METOPROLOL TARTRATE 25 MG TAB PO SCH ×2 (08:03→21:44)
[2016-12-11] MEDS: CEROVITE ADV FORMULA TAB PO SCH (08:03)
[2016-12-11] MEDS: CHOLECALCIFEROL 1000 INTER.UNIT TAB PO SCH (08:03)
--- NOTE | 2016-12-11 08:58 | Progress Note ---
Progress Note Date of Service Dec 11, 2016. Progress Note Continue local care of left foot Will need amputation eventually for dry gangrene Scheduled with Dr Ahumada later next week If patient still hospitalized then reconsult Dr Ahumada next Tuesday
[2016-12-11] MEDS: BOOST BREEZE NUTRITION DRINK 1 BOX PO SCH (09:00)
--- NOTE | 2016-12-11 10:37 | Progress Note ---
Progress Note Date of Service Dec 11, 2016. Progress Note Patient seen and examined at bedside at 10:30 AM seen to have blood on hospital gown there is a hematoma of right side of abdomen where there was heparin subcutaneous injection with blood through the skin. will hold heparin subcutaneous q8 hours order. machines technician okay with continuing aspirin abdomen ultrasound ordered to document extent of abdominal hematomas. Ultrasound showing soft tissue contusion of lower abdominal wall and a 1.6 x 1.2 x 0.5 cm slightly complex subcutaneous fluid collection likely small hematoma. Physical Exam: General: no acute distress Lungs: on nasal cannula, generally clear to auscultation, good air entry Heart: regular rate Abdomen: dressing placed over abdomen with area of bruising, + bowel sounds Legs: Right leg greater in size compared to left that is unchanged, dry gangrenous toe of left foot Moderate mitral insufficiency. Aortic valve disease with history of bioprosthetic aortic valve replacement in 2007. 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 Acute decompensated systolic heart failure with large bilateral pleural effusions. - improving with approximately 1000cc diuresis over the past 24 hours - s/p right sided 12/08 thoracocentesis of 1400cc pleural fluid - s/p left sided 12/09 thoracentesis of 1500cc pleural fluid - Continue IV diuresis. Consider transitioned to oral diuretic therapy in the next 24-48 hours. Cardiorenal syndrome - creatinine stable Chronic rate controlled atrial fibrillation. 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 Ahumada - continue IV Zosyn - wound home health care provider ordered lower extremity imaging including CT scan: "1. Findings consistent with osteomyelitis of the proximal phalanx of the third toe with concern for septic arthritis of the third metatarsophalangeal joint. This be better demonstrated on MR. 2. Suspicion for septic arthritis/osteomyelitis of the head of the second metatarsal and second metatarsophalangeal joint. 3. Findings concerning for minimally displaced fracture of the base of the proximal phalanx of the fourth toe. 4. Extensive degenerative changes of the first metatarsophalangeal joint. 5. Acrolysis of the tuft of the first toe." -have obtained surgery consultation -ID recommended starting daptomycin on 12/10/16 in addition to patient already on Zosyn IV DM, Hba1c 6.5 09/2016 Lantus + SSI ANEMIA - chronic, hgb at baseline, likely anemia of chronic disease Stg II Sacral Decub-POA, Optifoam applied, EHOB mattress. Wound care consulted. DVT PROPHYLAXIS - SQ Heparin CODE STATUS - Patient is DNR
--- NOTE | 2016-12-11 10:57 | Cardiology Follow-Up ---
Subjective General Date of Service: Dec 11, 2016. Pt evaluation today including: conversation w/ patient, conversation w/ family , physical exam, chart review, lab review, review of studies, conversation w/ automotive service consultant, review of inpatient medication list History of Present Illness The patient is a 86 year old male seen in follow-up. Patient had episode of bleeding from his abdominal wall after subcutaneous heparin injection this morning. No recurrent epistaxis. Denies chest discomfort or unusual shortness of breath. Fluid balance negative approximately 1 L over the past 24 hours. Respiratory status is stable. Creatinine unchanged. Offers no complaints this time. Allergies Coded Allergies: HERMAN Inhibitors (Verified Allergy, Intermediate, UNKNOWN, 11/05/16) Lisinopril (Verified Adverse Reaction, Unknown, COUGHING, 11/05/16) Social History Smoking Status: Former Smoker Hx Tobacco Use In Past Year?: No (gera 1969) Hx Alcohol Use - Type And Amou: No Hx Substance Use - Type And Am: No Problem List Medical Problems: (1) Acute on chronic renal failure Status: Acute (2) Anemia Status: Acute (3) Cellulitis of left leg Status: Acute (4) CHF (congestive heart failure) Status: Acute (5) Hypoxia Status: Acute (6) Left-sided epistaxis Status: Acute (7) Pneumonia Status: Acute (8) Sepsis Status: Acute (9) Urinary retention Status: Acute Review of Systems Respiratory: + cough, + dyspnea on exertion, No sputum, No wheezing, No shortness of breath, No dyspnea at rest, No hemoptysis Cardiac: + edema, No chest pain, No orthopnea, No PND, No claudication, No palpitations Physical Exam Vital Signs Last Vital Signs Documentation Date Time Temp Pulse Resp B/P (MAP) Pulse Ox O2 Delivery O2 Flow Rate FiO2 12/11/16 08:09 36.4 90 19 138/89 (105) 96 12/11/16 08:00 Nasal Cannula 2.0 Physical Exam Constitutional: Level of Distress: chronically ill Head: normocephalic ENMT: normal ENT inspection Lungs: Auscultation: decreased breath sounds, rales/crackles on the left Cardiovascular: Heart Auscultation: normal S1, normal S2, I/ SCOTTY, irregular rate rhythm Peripheral Pulses: Radial Pulse: normal on the right Abdomen: Inspection & Palpation: soft, non-distended, no tenderness, guarding & rebound Extremities: no cyanosis, edema (1-2+ B/L LE pretibial edema), ulcers (LLE), gangrene (Left 4th toe) Neurologic: Cranial Nerves: grossly intact Assessment and Plan Assessment and Plan IMPRESSION: 1. Acute decompensated systolic heart failure with large bilateral pleural effusions. - improving with approximately 1000cc diuresis over the past 24 hours - s/p right sided 12/08 thoracocentesis of 1400cc pleural fluid - s/p left sided 12/09 thoracentesis of 1500cc pleural fluid 2. Cardiorenal syndrome - creatinine stable 3. Chronic rate controlled atrial fibrillation. 4. Peripheral vascular disease and left lower extremity osteomyelitis / gangrene status post left 3rd toe amputation. 5. Aortic valve disease with history of bioprosthetic aortic valve replacement in 2007. 6. 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 7. Moderate mitral insufficiency. 8. Diabetes type 2. 9. Epistaxis PLAN AND RECOMMENDATIONS: Continue IV diuresis. Consider transitioned to oral diuretic therapy in the next 24-48 hours. Follow fluid balance, GFR, electrolytes, and daily weight. Will give an additional 40 mEq of KCl today. Continue beta norma and other cardiovascular medications as previously ordered. Subcutaneous heparin will be placed on hold due to abdominal wall hematoma / bleeding episode. Continue low-dose aspirin. Antibiotics per ID. I will continue to follow patient during hospitalization. Laboratory Results Last 24 Hours Test 12/10/16 11:00 12/10/16 16:27 12/10/16 20:34 12/11/16 05:08 Bedside Glucose 174 mg/dl 173 mg/dl 173 mg/dl White Blood Count 4.49 K/uL Red Blood Count 3.11 M/uL Hemoglobin 8.6 g/dL Hematocrit 28.7 % Mean Corpuscular Volume 92.3 fL Mean Corpuscular Hemoglobin 27.7 pg Mean Corpuscular Hemoglobin Concent 30.0 g/dl Platelet Count 116 K/uL Mean Platelet Volume 10.4 fL Neutrophils (%) (Auto) 76.6 % Lymphocytes (%) (Auto) 10.5 % Monocytes (%) (Auto) 12.0 % Eosinophils (%) (Auto) 0.9 % Basophils (%) (Auto) 0.0 % Neutrophils # (Auto) 3.44 K/uL Lymphocytes # (Auto) 0.47 K/uL Monocytes # (Auto) 0.54 K/uL Eosinophils # (Auto) 0.04 K/uL Basophils # (Auto) 0.00 K/uL RDW Standard Deviation 73.4 fL RDW Coefficient of Variation 21.7 % Immature Granulocyte % (Auto) 0.0 % Immature Granulocyte # (Auto) 0.00 K/uL Hypochromasia PRESENT Anisocytosis PRESENT Sodium Level 139 mmol/L Potassium Level 3.3 mmol/L Chloride Level 99 mmol/L Carbon Dioxide Level 34 mmol/L Anion Gap 6.0 mmol/L Blood Urea Nitrogen 32 mg/dl Creatinine 1.70 mg/dl Est Creatinine Clear Calc Drug Dose 31.0 ml/min Estimated GFR () 40.8 Estimated GFR (Non- 35.2 BUN/Creatinine Ratio 19.1 Random Glucose 141 mg/dl Calcium Level 8.1 mg/dl Total Bilirubin 0.6 mg/dl Aspartate Amino Transf (AST/SGOT) 25 U/L Alanine Aminotransferase (ALT/SGPT) 26 U/L Alkaline Phosphatase 66 U/L Total Protein 7.2 gm/dl Albumin 1.9 gm/dl Globulin 5.3 gm/dl Albumin/Globulin Ratio 0.4 Test 12/11/16 07:01 Bedside Glucose 130 mg/dl
[2016-12-11] MEDS ORDERED: POTASSIUM CHLORIDE 20 MEQ TABCR PO SCH (11:00)
--- NOTE | 2016-12-11 12:17 | DIAGNOSTIC IMAGING REPORT ---
ABDOMEN LIMITED (US) CLINICAL HISTORY: hematoma. Abdominal wall bruising. COMPARISON STUDY: None. FINDINGS: Real-time sonographic imaging of the lower abdominal wall was performed. The subcutaneous fat within the lower abdominal wall is echogenic suggestive of a soft tissue contusion. There is a 1.6 x 1.2 x 0.5 cm slightly complex subcutaneous fluid collection. This may represent a small hematoma. IMPRESSION: A 1.6 x 1.2 x 0.5 cm slightly complex subcutaneous fluid collection within the lower abdominal wall. This may represent a small hematoma. Electronically signed by: He Gomez M.D. 12/11/2016 12:16 PM Dictated Date/Time: 12/11/2016 12:14 PM
[2016-12-11] MEDS: INSULIN GLARGINE SOLOSTAR 100 UNITS/ML 3 ML PEN SC SCH (21:48)
[2016-12-12] VITALS (7 sets, daily range): BP systolic 111–121; BP diastolic 62–79; PULSE 74–87; TEMP 36.4–36.7; O2SAT 93–100
[2016-12-12 04:42] LABS: BASO % 0.2 %; BASO ABS # 0.01 K/uL (0-0.2); EOS % 1.2 %; HEMATOCRIT 30.4 % (42-52); IG% 0.2 %; LYMPH % 11.9 %; LYMPH ABS # 0.72 K/uL (1.2-3.4); MEAN CELL VOLUME 91.6 fL (80-100); MEAN CORPUSCULAR HEMOGLOBIN 27.4 pg (25-34); MEAN CORPUSCULAR HGB CONC 29.9 g/dl (32-36); MEAN PLATELET VOLUME 10.5 fL (7.4-10.4); MONO % 7.9 %; NEUT % 78.6 %; PLATELET COUNT 118 K/uL (130-400); RED BLOOD COUNT 3.32 M/uL (4.7-6.1); WHITE BLOOD COUNT 6.04 K/uL (4.8-10.8)
[2016-12-12 05:12] LABS: ALB/GLOB RATIO 0.4 (0.9-2); BUN/CREATININE RATIO 20.7 (10-20); CALCIUM 8.5 mg/dl (8.5-10.1); CREATININE 1.9 mg/dl (0.60-1.40); POTASSIUM 3.9 mmol/L (3.5-5.1)
[2016-12-12 06:02] LABS: ANISOCYTOSIS PRESENT; COMPLETE YES; HYPOCHROMIA PRESENT
[2016-12-12] MEDS: INSULIN ASPART 100 UNITS/ML 3 ML PEN SC SCH ×4 (07:00→21:16)
[2016-12-12] MEDS: FERROUS SULFATE 325 MG TAB PO SCH ×3 (07:30→16:37)
[2016-12-12] MEDS: PIPERACILL/TAZOBAC IV 3.375 GM in DEXTROSE 5% 100ML IV SCH ×2 (08:00→16:36)
[2016-12-12] MEDS: POTASSIUM CHLORIDE 20 MEQ TABCR PO SCH (09:00)
[2016-12-12] MEDS: CEROVITE ADV FORMULA TAB PO SCH (09:00)
[2016-12-12] MEDS: ASPIRIN 81 MG ECTAB PO SCH (09:00)
[2016-12-12] MEDS: BOOST BREEZE NUTRITION DRINK 1 BOX PO SCH (09:00)
[2016-12-12] MEDS: METOPROLOL TARTRATE 25 MG TAB PO SCH ×2 (09:00→21:11)
[2016-12-12] MEDS: ASCORBIC ACID 500 MG TAB PO SCH (09:00)
[2016-12-12] MEDS: CHOLECALCIFEROL 1000 INTER.UNIT TAB PO SCH (09:00)
[2016-12-12] MEDS ORDERED: FUROSEMIDE 40 MG TAB PO ONE (11:02)
--- NOTE | 2016-12-12 11:05 | Cardiology Follow-Up ---
Subjective General Date of Service: Dec 12, 2016. Pt evaluation today including: conversation w/ patient, physical exam, chart review, lab review, review of studies, review of inpatient medication list History of Present Illness The patient is a 86 year old male seen in follow-up. Respiratory status is stable. Lower extremity edema mildly improved. Creatinine mildly elevated today. Patient denies chest discomfort or unusual shortness of breath. Tolerating diet medications. Rate controlled atrial fibrillation on telemetry. Allergies Coded Allergies: HERMAN Inhibitors (Verified Allergy, Intermediate, UNKNOWN, 11/05/16) Lisinopril (Verified Adverse Reaction, Unknown, COUGHING, 11/05/16) Social History Smoking Status: Former Smoker Hx Tobacco Use In Past Year?: No (gera 1970) Hx Alcohol Use - Type And Amou: No Hx Substance Use - Type And Am: No Problem List Medical Problems: (1) Acute on chronic renal failure Status: Acute (2) Anemia Status: Acute (3) Cellulitis of left leg Status: Acute (4) CHF (congestive heart failure) Status: Acute (5) Hypoxia Status: Acute (6) Left-sided epistaxis Status: Acute (7) Pneumonia Status: Acute (8) Sepsis Status: Acute (9) Urinary retention Status: Acute Review of Systems Respiratory: + cough, + dyspnea on exertion, No sputum, No wheezing, No shortness of breath, No dyspnea at rest, No hemoptysis Cardiac: + edema, No chest pain, No orthopnea, No PND, No claudication, No palpitations Physical Exam Vital Signs Last Vital Signs Documentation Date Time Temp Pulse Resp B/P (MAP) Pulse Ox O2 Delivery O2 Flow Rate FiO2 12/12/16 08:00 Nasal Cannula 2.0 12/12/16 07:38 36.6 87 20 121/71 (88) 95 Physical Exam Constitutional: Level of Distress: chronically ill Head: normocephalic ENMT: normal ENT inspection Lungs: Auscultation: no wheezing, decreased breath sounds, rales/crackles on the left Cardiovascular: Heart Auscultation: normal S1, normal S2, I/ SCOTTY, irregular rate rhythm Peripheral Pulses: Radial Pulse: normal on the right Abdomen: Inspection & Palpation: soft, non-distended, no tenderness, guarding & rebound Extremities: no cyanosis, edema (1-2+ B/L LE pretibial edema), ulcers (LLE), gangrene (Left 4th toe) Neurologic: Cranial Nerves: grossly intact Assessment and Plan Assessment and Plan IMPRESSION: 1. Acute decompensated systolic heart failure with large bilateral pleural effusions. -Patient is approaching dry weight with mildly elevated creatinine noted this a.m. - s/p right sided 12/08 thoracocentesis of 1400cc pleural fluid - s/p left sided 12/09 thoracentesis of 1500cc pleural fluid 2. Cardiorenal syndrome - creatinine mildly elevated this a.m. 3. Chronic rate controlled atrial fibrillation. 4. Peripheral vascular disease and left lower extremity osteomyelitis / gangrene status post left 3rd toe amputation. 5. Aortic valve disease with history of bioprosthetic aortic valve replacement in 2007. 6. 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 7. Moderate mitral insufficiency. 8. Diabetes type 2. 9. Epistaxis PLAN AND RECOMMENDATIONS: Discontinue IV furosemide. Will order furosemide 40 mg by mouth daily. Follow fluid balance, GFR, electrolytes, and daily weight. Continue beta norma and other cardiovascular medications as previously ordered. Continue low-dose aspirin. Antibiotics per ID. We will arrange for close heart failure clinic follow-up in one week post discharge. Laboratory Results Last 24 Hours Test 12/11/16 11:45 12/11/16 16:14 12/11/16 20:21 12/12/16 04:33 Bedside Glucose 147 mg/dl 174 mg/dl 218 mg/dl White Blood Count 6.04 K/uL Red Blood Count 3.32 M/uL Hemoglobin 9.1 g/dL Hematocrit 30.4 % Mean Corpuscular Volume 91.6 fL Mean Corpuscular Hemoglobin 27.4 pg Mean Corpuscular Hemoglobin Concent 29.9 g/dl Platelet Count 118 K/uL Mean Platelet Volume 10.5 fL Neutrophils (%) (Auto) 78.6 % Lymphocytes (%) (Auto) 11.9 % Monocytes (%) (Auto) 7.9 % Eosinophils (%) (Auto) 1.2 % Basophils (%) (Auto) 0.2 % Neutrophils # (Auto) 4.75 K/uL Lymphocytes # (Auto) 0.72 K/uL Monocytes # (Auto) 0.48 K/uL Eosinophils # (Auto) 0.07 K/uL Basophils # (Auto) 0.01 K/uL RDW Standard Deviation 72.3 fL RDW Coefficient of Variation 21.6 % Immature Granulocyte % (Auto) 0.2 % Immature Granulocyte # (Auto) 0.01 K/uL Hypochromasia PRESENT Basophilic Stippling 1+ Anisocytosis PRESENT Sodium Level 135 mmol/L Potassium Level 3.9 mmol/L Chloride Level 96 mmol/L Carbon Dioxide Level 33 mmol/L Anion Gap 6.0 mmol/L Blood Urea Nitrogen 39 mg/dl Creatinine 1.90 mg/dl Est Creatinine Clear Calc Drug Dose 27.7 ml/min Estimated GFR () 35.7 Estimated GFR (Non- 30.8 BUN/Creatinine Ratio 20.7 Random Glucose 156 mg/dl Calcium Level 8.5 mg/dl Total Bilirubin 0.5 mg/dl Aspartate Amino Transf (AST/SGOT) 24 U/L Alanine Aminotransferase (ALT/SGPT) 27 U/L Alkaline Phosphatase 71 U/L Total Protein 7.7 gm/dl Albumin 2.0 gm/dl Globulin 5.7 gm/dl Albumin/Globulin Ratio 0.4 Test 12/12/16 06:17 Bedside Glucose 156 mg/dl
--- NOTE | 2016-12-12 16:37 | Progress Note ---
Internal Med Progress Note Date of Service: Dec 12, 2016. Provider Documentation: SUBJECTIVE: patient breathing on nasal cannula. denies chest pain or difficulties with breathing. OBJECTIVE: General Appearance: no apparent distress Head: normocephalic Eyes: normal inspection, sclerae normal ENT: hearing grossly normal, nasal cannula Neck: supple Respiratory/Chest: no respiratory distress, good air entry Cardiovascular: regular rate, rhythm Abdomen/GI: normal bowel sounds, non tender, soft, + distended Extremities: normal inspection, no calf tenderness, +3 pitting edema in bilateral lower extremities Neurologic/Psych: no motor/sensory deficits, alert, oriented x 3 Skin: left 5th toe with eschar; small amount of drainage between 5th and 4th toes; ulcer noted on the plantar surface of the left foot without erythema or drainage ASSESSMENT & PLAN: 86 year old male who was sent to the hospital as a direct admission from [facility] for volume overload. Patient has been admitted to [facility] three times recently. First was 08/20 - 09/04 for PAD with left foot gangrene and left knee septic arthritis. Patient underwent endarterectomy of the left leg and also left knee arthroscopic irrigation and debridement. Synovial fluid was positive for micrococcus species. Patient was discharged on IV Dapto and Ertapenem for 4 weeks of therapy. Patient was then readmitted 09/19 - 09/27 for severe sepsis likely due to pneumonia. While admitted, Ertapenem was changed to Zosyn and patient completed 7 days of therapy. Due to the left knee septic arthritis and gangrene left toe infection, patient was discharged on IV Dapto to complete the initial 4 weeks of therapy. On 10/19, patient underwent left 3rd toe amputation by Dr. Jefferson. Post operatively, the patient developed increased redness and drainage and was readmitted to [facility] 11/05 - 11/11 for wound infection / ongoing osteomyelitis. Wound culture grew E. Coli and Pseudomonas and patient was discharged on Zosyn to complete treatment on 12/17. Moderate mitral insufficiency. Aortic valve disease with history of bioprosthetic aortic valve replacement in 2007. 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 Acute decompensated systolic heart failure with large bilateral pleural effusions. - improving with approximately 1000cc diuresis over the past 24 hours - s/p right sided 12/08 thoracocentesis of 1400cc pleural fluid - s/p left sided 12/09 thoracentesis of 1500cc pleural fluid -as per cardiology consult note 12/12/16: furosemide 40 mg by mouth daily. Follow fluid balance, GFR, electrolytes, and daily weight. Continue beta norma and other cardiovascular medications as previously ordered. Continue low -dose aspirin. Cardiorenal syndrome - creatinine stable Chronic rate controlled atrial fibrillation. 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 Ahumada - continue IV Zosyn - wound care transition mgr ordered lower extremity imaging including CT scan: "1. Findings consistent with osteomyelitis of the proximal phalanx of the third toe with concern for septic arthritis of the third metatarsophalangeal joint. This be better demonstrated on MR. 2. Suspicion for septic arthritis/osteomyelitis of the head of the second metatarsal and second metatarsophalangeal joint. 3. Findings concerning for minimally displaced fracture of the base of the proximal phalanx of the fourth toe. 4. Extensive degenerative changes of the first metatarsophalangeal joint. 5. Acrolysis of the tuft of the first toe." -have obtained surgery consultation 12/11/16: Continue local care of left foot. Will need amputation eventually for dry gangrene. Scheduled with Dr Ahumada later next week . If patient still hospitalized then reconsult Dr Ahumada next Tuesday -ID recommended starting daptomycin on 12/10/16 in addition to patient already on Zosyn IV DM, Hba1c 6.5 09/2016 Lantus + SSI ANEMIA - chronic, hgb at baseline, likely anemia of chronic disease Stg II Sacral Decub-POA, Optifoam applied, EHOB mattress. Wound care consulted. abdominal bruising from DVT PROPHYLAXIS -Ultrasound showing soft tissue contusion of lower abdominal wall and a 1.6 x 1.2 x 0.5 cm slightly complex subcutaneous fluid collection likely small hematoma. - restart SQ Heparin as inpatient CODE STATUS - Patient is DNR - likely can be discharged when stable with PO Lasix for CHF - cardiology service to arrange outpatient follow up within 1 week of discharge - when discharged, an outpatient primary care doctor to follow with patient in [place] within 1 week of discharge - patient now on IV daptomycin as well as Iv Zosyn, this will need to be arranged as outpatient Vital Signs: Date Time Temp Pulse Resp B/P (MAP) Pulse Ox O2 Delivery O2 Flow Rate FiO2 12/12/16 16:16 96 Nasal Cannula 2.0 12/12/16 15:45 36.5 82 20 111/65 (80) 96 Nasal Cannula 2.0 12/12/16 12:05 100 Nasal Cannula 2.0 12/12/16 11:09 36.4 74 20 117/62 (80) 100 2.0 12/12/16 08:00 Nasal Cannula 2.0 12/12/16 07:38 36.6 87 20 121/71 (88) 95 2.0 12/12/16 03:41 36.7 79 20 119/79 (92) 93 Nasal Cannula 2.0 12/12/16 02:49 Nasal Cannula 2.0 12/12/16 00:01 Nasal Cannula 2.0 12/11/16 23:02 37.0 78 22 112/66 (81) 97 Nasal Cannula 2.0 12/11/16 20:18 Nasal Cannula 2.0 12/11/16 19:48 36.6 72 20 118/67 (84) 98 Nasal Cannula 2.0 Lab Results: Results Past 24 Hours Test 12/11/16 20:21 12/12/16 04:33 12/12/16 06:17 12/12/16 11:21 Range/Units Bedside Glucose 218 156 146 70-99 mg/dl White Blood Count 6.04 4.8-10.8 K/uL Red Blood Count 3.32 4.7-6.1 M/uL Hemoglobin 9.1 14.0-18.0 g/dL Hematocrit 30.4 42-52 % Mean Corpuscular Volume 91.6 80-100 fL Mean Corpuscular Hemoglobin 27.4 25-34 pg Mean Corpuscular Hemoglobin Concent 29.9 32-36 g/dl Platelet Count 118 130-400 K/uL Mean Platelet Volume 10.5 7.4-10.4 fL Neutrophils (%) (Auto) 78.6 % Lymphocytes (%) (Auto) 11.9 % Monocytes (%) (Auto) 7.9 % Eosinophils (%) (Auto) 1.2 % Basophils (%) (Auto) 0.2 % Neutrophils # (Auto) 4.75 1.4-6.5 K/uL Lymphocytes # (Auto) 0.72 1.2-3.4 K/uL Monocytes # (Auto) 0.48 0.11-0.59 K/uL Eosinophils # (Auto) 0.07 0-0.5 K/uL Basophils # (Auto) 0.01 0-0.2 K/uL RDW Standard Deviation 72.3 36.4-46.3 fL RDW Coefficient of Variation 21.6 11.5-14.5 % Immature Granulocyte % (Auto) 0.2 % Immature Granulocyte # (Auto) 0.01 0.00-0.02 K/uL Hypochromasia PRESENT Basophilic Stippling 1+ Anisocytosis PRESENT Sodium Level 135 136-145 mmol/L Potassium Level 3.9 3.5-5.1 mmol/L Chloride Level 96 98-107 mmol/L Carbon Dioxide Level 33 21-32 mmol/L Anion Gap 6.0 3-11 mmol/L Blood Urea Nitrogen 39 7-18 mg/dl Creatinine 1.90 0.60-1.40 mg/dl Est Creatinine Clear Calc Drug Dose 27.7 ml/min Estimated GFR () 35.7 Estimated GFR (Non- 30.8 BUN/Creatinine Ratio 20.7 10-20 Random Glucose 156 70-99 mg/dl Calcium Level 8.5 8.5-10.1 mg/dl Total Bilirubin 0.5 0.2-1 mg/dl Aspartate Amino Transf (AST/SGOT) 24 15-37 U/L Alanine Aminotransferase (ALT/SGPT) 27 12-78 U/L Alkaline Phosphatase 71 45-117 U/L Total Protein 7.7 6.4-8.2 gm/dl Albumin 2.0 3.4-5.0 gm/dl Globulin 5.7 2.5-4.0 gm/dl Albumin/Globulin Ratio 0.4 0.9-2 Test 12/12/16 16:19 Range/Units Bedside Glucose 143 70-99 mg/dl
[2016-12-12] MEDS: DAPTOmycin IV 500 MG in SODIUM CHLORIDE 0.9% 50ML 50 ML IV SCH (21:10)
[2016-12-12] MEDS: INSULIN GLARGINE SOLOSTAR 100 UNITS/ML 3 ML PEN SC SCH (21:17)
[2016-12-12] MEDS: HEPARIN SOD 5000 UNIT/0.5 ML CARP SQ SCH (21:40)
[2016-12-13] VITALS (7 sets, daily range): BP systolic 91–133; BP diastolic 56–70; PULSE 73–89; TEMP 36.4–36.8; O2SAT 94–99
[2016-12-13 05:13] LABS: CREATININE 1.8 mg/dl (0.60-1.40)
[2016-12-13] MEDS: HEPARIN SOD 5000 UNIT/0.5 ML CARP SQ SCH ×3 (06:54→21:20)
[2016-12-13] MEDS: METOPROLOL TARTRATE 25 MG TAB PO SCH ×2 (08:02→21:14)
[2016-12-13] MEDS: CEROVITE ADV FORMULA TAB PO SCH (08:02)
[2016-12-13] MEDS: ASPIRIN 81 MG ECTAB PO SCH (08:02)
[2016-12-13] MEDS: FUROSEMIDE 40 MG TAB PO SCH (08:03)
[2016-12-13] MEDS: ASCORBIC ACID 500 MG TAB PO SCH (08:04)
[2016-12-13] MEDS: POTASSIUM CHLORIDE 20 MEQ TABCR PO SCH (08:04)
[2016-12-13] MEDS: CHOLECALCIFEROL 1000 INTER.UNIT TAB PO SCH (08:04)
[2016-12-13] MEDS: BOOST BREEZE NUTRITION DRINK 1 BOX PO SCH (08:05)
[2016-12-13] MEDS: FERROUS SULFATE 325 MG TAB PO SCH ×3 (08:06→18:34)
[2016-12-13] MEDS: PIPERACILL/TAZOBAC IV 3.375 GM in DEXTROSE 5% 100ML IV SCH ×5 (08:07→23:13)
[2016-12-13] MEDS: INSULIN ASPART 100 UNITS/ML 3 ML PEN SC SCH ×4 (08:22→20:28)
--- NOTE | 2016-12-13 09:54 | Cardiology Follow-Up ---
Subjective General Date of Service: Dec 13, 2016. Pt evaluation today including: conversation w/ patient, physical exam, chart review, lab review, review of studies, review of inpatient medication list History of Present Illness The patient is a 86 year old male seen in follow-up. Respiratory status stable. Lower extremity edema unchanged. Denies orthopnea or PND. Urine output decrease in the evening, however, patient only received one dose of Lasix yesterday. No events on telemetry. Allergies Coded Allergies: HERMAN Inhibitors (Verified Allergy, Intermediate, UNKNOWN, 11/05/16) Lisinopril (Verified Adverse Reaction, Unknown, COUGHING, 11/05/16) Social History Smoking Status: Former Smoker Hx Tobacco Use In Past Year?: No (gera 1970) Hx Alcohol Use - Type And Amou: No Hx Substance Use - Type And Am: No Problem List Medical Problems: (1) Acute on chronic renal failure Status: Acute (2) Anemia Status: Acute (3) Cellulitis of left leg Status: Acute (4) CHF (congestive heart failure) Status: Acute (5) Hypoxia Status: Acute (6) Left-sided epistaxis Status: Acute (7) Pneumonia Status: Acute (8) Sepsis Status: Acute (9) Urinary retention Status: Acute Review of Systems Respiratory: + cough, + shortness of breath, + dyspnea on exertion, No sputum, No wheezing, No dyspnea at rest, No hemoptysis Cardiac: + edema, No chest pain, No orthopnea, No PND, No claudication, No palpitations Physical Exam Vital Signs Last Vital Signs Documentation Date Time Temp Pulse Resp B/P (MAP) Pulse Ox O2 Delivery O2 Flow Rate FiO2 12/13/16 07:30 Nasal Cannula 2.0 12/13/16 07:23 36.6 73 20 99/56 (70) 99 Physical Exam Constitutional: Level of Distress: chronically ill Head: normocephalic ENMT: normal ENT inspection Lungs: Auscultation: no wheezing, decreased breath sounds, rales/crackles on the left Cardiovascular: Heart Auscultation: normal S1, normal S2, I/ SCOTTY, irregular rate rhythm Peripheral Pulses: Radial Pulse: normal on the right Abdomen: Inspection & Palpation: soft, non-distended, no tenderness, guarding & rebound Extremities: no cyanosis, edema (1-2+ B/L LE pretibial edema), ulcers (LLE), gangrene (Left 4th toe) Neurologic: Cranial Nerves: grossly intact Assessment and Plan Assessment and Plan IMPRESSION: 1. Acute decompensated systolic heart failure with large bilateral pleural effusions. - Diuretics transitioned to PO yesterday with associated mild decline in urine output - s/p right sided 12/08 thoracocentesis of 1400cc pleural fluid - s/p left sided 12/09 thoracentesis of 1500cc pleural fluid 2. Cardiorenal syndrome - creatinine stable 3. Chronic rate controlled atrial fibrillation. 4. Peripheral vascular disease and left lower extremity osteomyelitis / gangrene status post left 3rd toe amputation. 5. Aortic valve disease with history of bioprosthetic aortic valve replacement in 2007. 6. 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 7. Moderate mitral insufficiency. 8. Diabetes type 2. 9. Epistaxis PLAN AND RECOMMENDATIONS: Increase oral Lasix to 40 mg twice daily. Follow fluid balance, GFR, electrolytes, and daily weight. Continue beta norma and other cardiovascular medications as previously ordered. Continue low-dose aspirin. Antibiotics per ID. Patient is scheduled for toe amputation on with Dr. Ahumada. We will arrange for close heart failure clinic follow-up in one week post discharge. Laboratory Results Last 24 Hours Test 12/12/16 11:21 12/12/16 16:19 12/12/16 20:13 12/13/16 04:04 Bedside Glucose 146 mg/dl 143 mg/dl 290 mg/dl Creatinine 1.80 mg/dl Est Creatinine Clear Calc Drug Dose 29.3 ml/min Estimated GFR () 38.1 Estimated GFR (Non- 32.9 Test 12/13/16 07:08 Bedside Glucose 136 mg/dl
[2016-12-13 11:29] LABS: ALB/GLOB RATIO 0.3 (0.9-2); BUN/CREATININE RATIO 24.5 (10-20); CALCIUM 8.4 mg/dl (8.5-10.1); CREATININE 1.8 mg/dl (0.60-1.40); MAGNESIUM 2.1 mg/dl (1.8-2.4); POTASSIUM 3.7 mmol/L (3.5-5.1)
--- NOTE | 2016-12-13 17:54 | Infectious Disease Progress Nt ---
Progress Note Date of Service Dec 13, 2016. Subjective Pt evaluation today including: conversation w/ patient, physical exam, chart review, lab review, review of studies, conversation w/ individual pension consultant, review of inpatient medication list Patient without new complaints today. Remains afebrile. Pain controlled. Tolerating antibiotics without apparent difficulty. All Other Systems: Reviewed and Negative Medications Current Inpatient Medications Medications (Trade) Dose Ordered Sig/Rosemarie Route Start Time Stop Time Status Last Admin Dose Admin Acetaminophen (Tylenol Tab) 650 mg Q4H PRN PO 12/06/16 12:45 01/05/17 12:44 Ondansetron HCl (Zofran Inj) 4 mg Q6H PRN IV 12/06/16 12:45 01/05/17 12:44 Enteral Nutritional Formula (Boost Breeze Nutritional Drink) 1 box DAILY PO 12/07/16 09:00 01/06/17 08:59 12/13/16 08:05 1 BOX Aspirin (Ecotrin Tab) 81 mg QAM PO 12/07/16 09:00 01/06/17 08:59 Future hold 12/13/16 08:02 81 MG Folic Acid (Folvite Tab) 1 mg QAM PO 12/07/16 09:00 01/06/17 08:59 12/13/16 08:04 1 MG Insulin Glargine (Lantus Solostar Pen) 10 units HS SC 12/06/16 21:00 01/05/17 20:59 12/12/16 21:17 10 UNITS Metoprolol Tartrate (Lopressor Tab) 25 mg BID PO 12/06/16 21:00 01/05/17 20:59 12/13/16 08:02 25 MG Multivitamins/ Minerals (Multivitamin W/ Minerals Tab) 1 tab QAM PO 12/07/16 09:00 01/06/17 08:59 12/13/16 08:02 1 TAB Potassium Chloride (Klor-Con Tab) 20 meq DAILY PO 12/07/16 09:00 01/06/17 08:59 12/13/16 08:04 20 MEQ Ascorbic Acid (Vitamin C Tab) 500 mg DAILY PO 12/07/16 09:00 01/06/17 08:59 12/13/16 08:04 500 MG Cholecalciferol (Vitamin D Tab) 2,000 inter.unit QAM PO 12/07/16 09:00 01/06/17 08:59 12/13/16 08:04 2,000 INTER.UNIT Ferrous Sulfate (Feosol Tab) 325 mg TIDM PO 12/06/16 16:45 01/05/17 16:44 12/13/16 11:44 325 MG Insulin Aspart (novoLOG ASPART) SLIDING SCALE If C... ACHS SC 12/06/16 16:15 01/05/17 16:14 12/13/16 17:32 3 UNITS Glucose (Glucose 40% Gel) 15-30 GRAMS 15 GRAMS... UD PRN PO 12/06/16 13:30 01/05/17 13:29 Glucose (Glucose Chew Tab) 4-8 Tablets 4 Tabl... UD PRN PO 12/06/16 13:30 01/05/17 13:29 Dextrose (Dextrose 50% 50ML Syringe) 25-50ML OF 50% DW IV FOR... UD PRN IV 12/06/16 13:30 01/05/17 13:29 Glucagon (Glucagon Inj) 1 mg UD PRN SQ 12/06/16 13:30 01/05/17 13:29 Piperacillin Sod/ Tazobactam Sod (Consult) 1 ea UD PRN N/A 12/06/16 13:30 12/17/16 22:00 Piperacillin Sod/ Tazobactam Sod 3.375 gm/Dextrose 115 ml @ 28.75 mls/ hr Q8H IV 12/06/16 16:00 12/17/16 23:59 12/13/16 17:30 28.75 MLS/HR Heparin Sodium (Porcine) (Heparin 10 Unit/ ml 5 ml Flush) 5 ml PRN PRN FLUSH 12/06/16 22:15 01/05/17 22:14 12/08/16 04:59 5 ML Heparin Sodium (Porcine) (Heparin Sq 5000 Unit/0.5ml) 5,000 unit Q8 SQ 12/07/16 06:00 01/06/17 05:59 Future hold 12/13/16 15:12 5,000 UNIT Daptomycin 500 mg/ Sodium Chloride 60 ml @ 100 mls/hr Q48H IV 12/10/16 20:00 01/21/17 19:59 12/12/16 21:10 100 MLS/HR Furosemide (Lasix Tab) 40 mg QAM PO 12/13/16 09:00 01/12/17 08:59 12/13/16 08:03 40 MG Objective Vital Signs Date Time Temp Pulse Resp B/P (MAP) Pulse Ox O2 Delivery O2 Flow Rate FiO2 12/13/16 17:14 Room Air 12/13/16 16:05 Room Air 12/13/16 15:21 36.5 85 22 120/63 (82) 94 Room Air 12/13/16 12:06 36.8 89 22 91/63 (72) 95 Room Air 12/13/16 11:50 Nasal Cannula 2.0 12/13/16 07:30 Nasal Cannula 2.0 12/13/16 07:23 36.6 73 20 99/56 (70) 99 2.0 12/13/16 04:27 Nasal Cannula 2.0 12/13/16 04:00 36.4 79 22 119/70 (86) 99 Nasal Cannula 2.0 12/13/16 01:05 36.4 79 22 112/64 (80) 99 Nasal Cannula 2.0 12/13/16 00:49 Nasal Cannula 2.0 12/12/16 20:39 Nasal Cannula 2.0 12/12/16 19:47 36.4 82 20 111/67 (82) 98 Nasal Cannula 2.0 Physical Exam General Appearance: no apparent distress, + pertinent finding ( Chronically ill-appearing) Eyes: normal inspection, EOMI, sclerae normal ENT: normal ENT inspection, pharynx normal Neck: supple, no adenopathy, thyroid normal, trachea midline Respiratory/Chest: chest non-tender, no respiratory distress, no accessory muscle use, + rales Cardiovascular: no gallop, no murmur, + irregularly irregular Abdomen: normal bowel sounds, non tender, soft, no organomegaly Extremities: no calf tenderness, + pedal edema Neurologic/Psychiatric: alert, oriented x 3 Skin: normal color, no rash, + pertinent finding ( Gangrenous changes left foot) Lymphatic: no adenopathy Laboratory Results Last 24 Hours Test 12/12/16 20:13 12/13/16 04:04 12/13/16 07:08 12/13/16 10:52 Bedside Glucose 290 mg/dl 136 mg/dl Creatinine 1.80 mg/dl 1.80 mg/dl Est Creatinine Clear Calc Drug Dose 29.3 ml/min 29.3 ml/min Estimated GFR () 38.1 38.1 Estimated GFR (Non- 32.9 32.9 Sodium Level 136 mmol/L Potassium Level 3.7 mmol/L Chloride Level 98 mmol/L Carbon Dioxide Level 31 mmol/L Anion Gap 7.0 mmol/L Blood Urea Nitrogen 44 mg/dl BUN/Creatinine Ratio 24.5 Random Glucose 140 mg/dl Calcium Level 8.4 mg/dl Magnesium Level 2.1 mg/dl Total Bilirubin 0.5 mg/dl Aspartate Amino Transf (AST/SGOT) 32 U/L Alanine Aminotransferase (ALT/SGPT) 31 U/L Alkaline Phosphatase 67 U/L Total Protein 7.4 gm/dl Albumin 1.9 gm/dl Globulin 5.5 gm/dl Albumin/Globulin Ratio 0.3 Test 12/13/16 11:19 12/13/16 15:58 Bedside Glucose 140 mg/dl 224 mg/dl Assessment and Plan Osteomyelitis left foot/toes with dry gangrene left 5th toe in setting of severe PAD. Agree with need for amputation, suspect will require more than 5th toe. Continue Zosyn, daptomycin restarted. could consider use of vancomycin if daptomycin not approved by [facility]. Discussed with Dr. Solitario.
[2016-12-13] MEDS: INSULIN GLARGINE SOLOSTAR 100 UNITS/ML 3 ML PEN SC SCH (20:27)
--- NOTE | 2016-12-13 20:48 | Progress Note ---
Internal Med Progress Note Date of Service: Dec 13, 2016. Provider Documentation: SUBJECTIVE: patient breathing comfortably. denies shortness of breath. denies chest pain OBJECTIVE: General Appearance: no apparent distress Head: normocephalic Eyes: normal inspection, sclerae normal ENT: hearing grossly normal, nasal cannula Neck: supple Respiratory/Chest: no respiratory distress, good air entry Cardiovascular: regular rate, rhythm Abdomen/GI: normal bowel sounds, non tender, soft, + distended Extremities: normal inspection, no calf tenderness, +3 pitting edema in bilateral lower extremities Neurologic/Psych: no motor/sensory deficits, alert, oriented x 3 Skin: left 5th toe with eschar; small amount of drainage between 5th and 4th toes; ulcer noted on the plantar surface of the left foot without erythema or drainage ASSESSMENT & PLAN: CC: 86 year old male who was sent to the hospital as a direct admission from [facility] for volume overload. PMH substantial for prior hospitalizations for leg complications: Patient has been admitted to [facility] three times recently. First was 08/20 - 09/04 for PAD with left foot gangrene and left knee septic arthritis. Patient underwent endarterectomy of the left leg and also left knee arthroscopic irrigation and debridement. Synovial fluid was positive for micrococcus species. Patient was discharged on IV Dapto and Ertapenem for 4 weeks of therapy. Patient was then readmitted 09/19 - 09/27 for severe sepsis likely due to pneumonia. While admitted, Ertapenem was changed to Zosyn and patient completed 7 days of therapy. Due to the left knee septic arthritis and gangrene left toe infection, patient was discharged on IV Dapto to complete the initial 4 weeks of therapy. On 10/19, patient underwent left 3rd toe amputation by Dr. Jefferson. Post operatively, the patient developed increased redness and drainage and was readmitted to [facility] 11/05 - 11/11 for wound infection / ongoing osteomyelitis. Wound culture grew E. Coli and Pseudomonas and patient was discharged on Zosyn to complete treatment on 12/17. Assessment/Plan Patient's fluid overload has been treated with diuresis and 2 thoracentesis. On broad spectrum antibiotics while awaiting surgery to amputate dry gangrene and osteomyelitis involved toes. Moderate mitral insufficiency. Aortic valve disease with history of bioprosthetic aortic valve replacement in 2007. Chronic ischemic heart disease with ischemic cardiomyopathy, ejection fraction 35-40%, and coronary bypass grafting in 2008. Acute decompensated systolic heart failure with large bilateral pleural effusions. - improving with approximately 1000cc diuresis over the past 24 hours - s/p right sided 12/08 thoracocentesis of 1400cc pleural fluid - s/p left sided 12/09 thoracentesis of 1500cc pleural fluid -as per cardiology consult note 12/12/16: furosemide 40 mg by mouth daily. Follow fluid balance, GFR, electrolytes, and daily weight. Continue beta norma and other cardiovascular medications as previously ordered. Continue low -dose aspirin. Cardiorenal syndrome - creatinine stable Chronic rate controlled atrial fibrillation. 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 Ahumada - continue IV Zosyn - wound hospice care transitions coordinator ordered lower extremity imaging including CT scan: "1. Findings consistent with osteomyelitis of the proximal phalanx of the third toe with concern for septic arthritis of the third metatarsophalangeal joint. This be better demonstrated on MR. 2. Suspicion for septic arthritis/osteomyelitis of the head of the second metatarsal and second metatarsophalangeal joint. 3. Findings concerning for minimally displaced fracture of the base of the proximal phalanx of the fourth toe. 4. Extensive degenerative changes of the first metatarsophalangeal joint. 5. Acrolysis of the tuft of the first toe." -have obtained surgery consultation 12/11/16 however this consult addressed the 5th left toe and not the 3rd toe on left foot with osteomyelitis -ID recommended starting daptomycin on 12/10/16 in addition to patient already on Zosyn IV for osteomyelitis -have contacted surgery PA who confirms there is operating room time with Dr. Ahumada for toe amputations on 12/16/16 DM, Hba1c 6.5 09/2016 Lantus + SSI ANEMIA : chronic, hgb at baseline, likely anemia of chronic disease Stg II Sacral Decub-POA, Optifoam applied, EHOB mattress. Wound care consulted. abdominal bruising from DVT PROPHYLAXIS -Ultrasound showing soft tissue contusion of lower abdominal wall and a 1.6 x 1.2 x 0.5 cm slightly complex subcutaneous fluid collection likely small hematoma. - restart SQ Heparin as inpatient CODE STATUS/disposition - Patient is DNR - likely to be inpatient for toe surgeries on 12/16/16 - likely can be discharged when stable with PO Lasix for CHF - cardiology service to arrange outpatient follow up within 1 week of discharge - when discharged, an outpatient primary care doctor to follow with patient in [facility] within 1 week of discharge - patient now on IV daptomycin as well as Iv Zosyn, this will need to be arranged as outpatient Vital Signs: Date Time Temp Pulse Resp B/P (MAP) Pulse Ox O2 Delivery O2 Flow Rate FiO2 12/13/16 19:55 36.5 81 22 133/69 (90) 94 Room Air 12/13/16 17:14 Room Air 12/13/16 16:05 Room Air 12/13/16 15:21 36.5 85 22 120/63 (82) 94 Room Air 12/13/16 12:06 36.8 89 22 91/63 (72) 95 Room Air 12/13/16 11:50 Nasal Cannula 2.0 12/13/16 07:30 Nasal Cannula 2.0 12/13/16 07:23 36.6 73 20 99/56 (70) 99 2.0 12/13/16 04:27 Nasal Cannula 2.0 12/13/16 04:00 36.4 79 22 119/70 (86) 99 Nasal Cannula 2.0 12/13/16 01:05 36.4 79 22 112/64 (80) 99 Nasal Cannula 2.0 12/13/16 00:49 Nasal Cannula 2.0 Lab Results: Results Past 24 Hours Test 12/13/16 04:04 12/13/16 07:08 12/13/16 10:52 12/13/16 11:19 Range/Units Creatinine 1.80 1.80 0.60-1.40 mg/dl Est Creatinine Clear Calc Drug Dose 29.3 29.3 ml/min Estimated GFR () 38.1 38.1 Estimated GFR (Non- 32.9 32.9 Bedside Glucose 136 140 70-99 mg/dl Sodium Level 136 136-145 mmol/L Potassium Level 3.7 3.5-5.1 mmol/L Chloride Level 98 98-107 mmol/L Carbon Dioxide Level 31 21-32 mmol/L Anion Gap 7.0 3-11 mmol/L Blood Urea Nitrogen 44 7-18 mg/dl BUN/Creatinine Ratio 24.5 10-20 Random Glucose 140 70-99 mg/dl Calcium Level 8.4 8.5-10.1 mg/dl Magnesium Level 2.1 1.8-2.4 mg/dl Total Bilirubin 0.5 0.2-1 mg/dl Aspartate Amino Transf (AST/SGOT) 32 15-37 U/L Alanine Aminotransferase (ALT/SGPT) 31 12-78 U/L Alkaline Phosphatase 67 45-117 U/L Total Protein 7.4 6.4-8.2 gm/dl Albumin 1.9 3.4-5.0 gm/dl Globulin 5.5 2.5-4.0 gm/dl Albumin/Globulin Ratio 0.3 0.9-2 Test 12/13/16 15:58 12/13/16 20:25 Range/Units Bedside Glucose 224 202 70-99 mg/dl
[2016-12-14] VITALS (8 sets, daily range): BP systolic 110–119; BP diastolic 56–70; PULSE 64–88; TEMP 36.2–36.6; O2SAT 91–99
[2016-12-14] MEDS: HEPARIN SOD 5000 UNIT/0.5 ML CARP SQ SCH ×3 (06:29→22:06)
--- NOTE | 2016-12-14 07:44 | Progress Note ---
Progress Note Date of Service Dec 14, 2016. Progress Note Mr. Flores was admitted 12/06 for increasing SOB. Has had bilateral thoracentesis and being followed by pulmonology and cardiology. He does not have any specific complaints this morning. He has been on IV Zosyn since admission and Daptomycin added 12/10. He is scheduled for amputation of left 5th toe on morning. There is now CT evidence of osteomyelitis involving the 2nd and 3rd toes. He had CTA in August which I will review with Dr. Ahumada tomorrow and we will update the surgical plan as necessary. I discussed this with the patient and will see him again tomorrow.
[2016-12-14 07:54] LABS: CREATININE 1.8 mg/dl (0.60-1.40)
[2016-12-14 08:46] LABS: NEO FLOW LYMPH/LEUK STND SEE NEO OTHER
[2016-12-14] MEDS: PIPERACILL/TAZOBAC IV 3.375 GM in DEXTROSE 5% 100ML IV SCH ×2 (08:46→15:36)
[2016-12-14] MEDS: ASPIRIN 81 MG ECTAB PO SCH (08:47)
[2016-12-14] MEDS: ASCORBIC ACID 500 MG TAB PO SCH (08:48)
[2016-12-14] MEDS: FERROUS SULFATE 325 MG TAB PO SCH ×3 (08:48→17:12)
[2016-12-14] MEDS: CHOLECALCIFEROL 1000 INTER.UNIT TAB PO SCH (08:48)
[2016-12-14] MEDS: METOPROLOL TARTRATE 25 MG TAB PO SCH ×2 (08:48→22:03)
[2016-12-14] MEDS: FUROSEMIDE 40 MG TAB PO SCH (08:49)
[2016-12-14] MEDS: CEROVITE ADV FORMULA TAB PO SCH (08:49)
[2016-12-14] MEDS: BOOST BREEZE NUTRITION DRINK 1 BOX PO SCH (08:50)
[2016-12-14] MEDS: POTASSIUM CHLORIDE 20 MEQ TABCR PO SCH (08:50)
[2016-12-14] MEDS: INSULIN ASPART 100 UNITS/ML 3 ML PEN SC SCH ×4 (08:58→22:06)
--- NOTE | 2016-12-14 10:36 | Progress Note ---
Medicine Progress Note Date & Time of Visit: Dec 14, 2016 at 10:31. Subjective Pt was seen and examined Lying in bed comfortable with no distress Pt said that he feels fine he said that his breathing is fine pt said that the redness and swelling in his legs improved denies any chest pain, palpitation, dizziness and sob Objective Last 8 Hrs Date Time Temp Pulse Resp B/P (MAP) Pulse Ox O2 Delivery O2 Flow Rate FiO2 12/14/16 09:13 99 Room Air 12/14/16 08:00 Room Air 12/14/16 07:41 36.3 70 20 118/68 (85) 99 Room Air 12/14/16 04:00 Room Air 12/14/16 04:00 36.5 75 22 113/56 (75) 91 Room Air Physical Exam: General- No acute distress Head- atraumatic Eyes- PERRL, EOMI ENT- oropharynx clear Neck- no JVD Lungs- No wheezing Heart- regular rhythm Abdomen- normal bowel sounds, soft Extremities +edema, no calf tenderness Neuro- alert, oriented, PERRL, EOMI Skin- warm & dry Laboratory Results: Last 24 Hours Test 12/13/16 10:52 12/13/16 11:19 12/13/16 15:58 12/13/16 20:25 Sodium Level 136 mmol/L Potassium Level 3.7 mmol/L Chloride Level 98 mmol/L Carbon Dioxide Level 31 mmol/L Anion Gap 7.0 mmol/L Blood Urea Nitrogen 44 mg/dl Creatinine 1.80 mg/dl Est Creatinine Clear Calc Drug Dose 29.3 ml/min Estimated GFR () 38.1 Estimated GFR (Non- 32.9 BUN/Creatinine Ratio 24.5 Random Glucose 140 mg/dl Calcium Level 8.4 mg/dl Magnesium Level 2.1 mg/dl Total Bilirubin 0.5 mg/dl Aspartate Amino Transf (AST/SGOT) 32 U/L Alanine Aminotransferase (ALT/SGPT) 31 U/L Alkaline Phosphatase 67 U/L Total Protein 7.4 gm/dl Albumin 1.9 gm/dl Globulin 5.5 gm/dl Albumin/Globulin Ratio 0.3 Bedside Glucose 140 mg/dl 224 mg/dl 202 mg/dl Test 12/14/16 06:47 12/14/16 07:10 Bedside Glucose 120 mg/dl Creatinine 1.80 mg/dl Est Creatinine Clear Calc Drug Dose 29.3 ml/min Estimated GFR () 38.1 Estimated GFR (Non- 32.9 Assessment & Plan ACUTE ON CHRONIC SYSTOLIC CHF BL PLEURAL EFFUSIONS - Present with worsening shortness of breath and lower extremity edema x 2 weeks despite outpatient titration of diuretics - CXR s on admission showed BL pleural effusions - Chest US showed large effusions that were marked for possible thoracentesis - Pulmonary on board - s/p right sided 12/08 thoracocentesis of 1400cc pleural fluid - s/p left sided 12/09 thoracentesis of 1500cc pleural fluid - On lasix 40 mg po BID - Continue fluid restriction - Last echo on 09/2016 showed EF 35-40% - cardiology on board -Continue beta norma and low-dose aspirin. Cardiorenal syndrome - creatinine stable Chronic rate controlled atrial fibrillation. 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 Ahumada - Continue IV Zosyn and daptomycin - wound care On board Lower extremity CT scan done showed: 1. Findings consistent with osteomyelitis of the proximal phalanx of the third toe with concern for septic arthritis of the third metatarsophalangeal joint. This be better demonstrated on MR. 2. Suspicion for septic arthritis/osteomyelitis of the head of the second metatarsal and second metatarsophalangeal joint. -ID recommended starting daptomycin on 12/10/16 in addition to patient already on Zosyn IV for osteomyelitis -Surgery on board -Schedule for toe amputation on 12/[address] Ahumada for toe amputations on 12/16/16 DM recent Hba1c 6.5 on 09/2016 Lantus + SSI ANEMIA chronic Hbg stable Stg II Sacral Decub-POA, Optifoam applied, EHOB mattress. Continue daily wound care Wound care on board Abdominal bruising -From subQ heparin -Ultrasound showed soft tissue contusion of lower abdominal wall and a 1.6 x 1.2 x 0.5 cm slightly complex subcutaneous fluid collection likely small hematoma. - Stable CODE STATUS/disposition - Patient is DNR - Plan for toe amputation on 9/28/17 - cardiology service to arrange outpatient follow up within 1 week of discharge - IV daptomycin/ Iv Zosyn, this will need to be arranged as outpatient Current Inpatient Medications: Current Inpatient Medications Medications (Trade) Dose Ordered Sig/Rosemarie Route Start Time Stop Time Status Last Admin Dose Admin Acetaminophen (Tylenol Tab) 650 mg Q4H PRN PO 12/06/16 12:45 01/05/17 12:44 Ondansetron HCl (Zofran Inj) 4 mg Q6H PRN IV 12/06/16 12:45 01/05/17 12:44 Enteral Nutritional Formula (Boost Breeze Nutritional Drink) 1 box DAILY PO 12/07/16 09:00 01/06/17 08:59 12/14/16 08:50 1 BOX Aspirin (Ecotrin Tab) 81 mg QAM PO 12/07/16 09:00 01/06/17 08:59 Future hold 12/14/16 08:47 81 MG Folic Acid (Folvite Tab) 1 mg QAM PO 12/07/16 09:00 01/06/17 08:59 12/14/16 09:59 1 MG Insulin Glargine (Lantus Solostar Pen) 10 units HS SC 12/06/16 21:00 01/05/17 20:59 12/13/16 20:27 10 UNITS Metoprolol Tartrate (Lopressor Tab) 25 mg BID PO 12/06/16 21:00 01/05/17 20:59 12/14/16 08:48 25 MG Multivitamins/ Minerals (Multivitamin W/ Minerals Tab) 1 tab QAM PO 12/07/16 09:00 01/06/17 08:59 12/14/16 08:49 1 TAB Potassium Chloride (Klor-Con Tab) 20 meq DAILY PO 12/07/16 09:00 01/06/17 08:59 12/14/16 08:50 20 MEQ Ascorbic Acid (Vitamin C Tab) 500 mg DAILY PO 12/07/16 09:00 01/06/17 08:59 12/14/16 08:48 500 MG Cholecalciferol (Vitamin D Tab) 2,000 inter.unit QAM PO 12/07/16 09:00 01/06/17 08:59 12/14/16 08:48 2,000 INTER.UNIT Ferrous Sulfate (Feosol Tab) 325 mg TIDM PO 12/06/16 16:45 01/05/17 16:44 12/14/16 08:48 325 MG Insulin Aspart (novoLOG ASPART) SLIDING SCALE If C... ACHS SC 12/06/16 16:15 01/05/17 16:14 12/14/16 08:58 1 UNITS Glucose (Glucose 40% Gel) 15-30 GRAMS 15 GRAMS... UD PRN PO 12/06/16 13:30 01/05/17 13:29 Glucose (Glucose Chew Tab) 4-8 Tablets 4 Tabl... UD PRN PO 12/06/16 13:30 01/05/17 13:29 Dextrose (Dextrose 50% 50ML Syringe) 25-50ML OF 50% DW IV FOR... UD PRN IV 12/06/16 13:30 01/05/17 13:29 Glucagon (Glucagon Inj) 1 mg UD PRN SQ 12/06/16 13:30 01/05/17 13:29 Piperacillin Sod/ Tazobactam Sod (Consult) 1 ea UD PRN N/A 12/06/16 13:30 12/17/16 22:00 Piperacillin Sod/ Tazobactam Sod 3.375 gm/Dextrose 115 ml @ 28.75 mls/ hr Q8H IV 12/06/16 16:00 12/17/16 23:59 12/14/16 08:46 28.75 MLS/HR Heparin Sodium (Porcine) (Heparin 10 Unit/ ml 5 ml Flush) 5 ml PRN PRN FLUSH 12/06/16 22:15 01/05/17 22:14 12/08/16 04:59 5 ML Heparin Sodium (Porcine) (Heparin Sq 5000 Unit/0.5ml) 5,000 unit Q8 SQ 12/07/16 06:00 01/06/17 05:59 Future hold 12/14/16 06:29 5,000 UNIT Daptomycin 500 mg/ Sodium Chloride 60 ml @ 100 mls/hr Q48H IV 12/10/16 20:00 01/21/17 19:59 12/12/16 21:10 100 MLS/HR Furosemide (Lasix Tab) 40 mg QAM PO 12/13/16 09:00 01/12/17 08:59 12/14/16 08:49 40 MG
--- NOTE | 2016-12-14 13:08 | Cardiology Follow-Up ---
Subjective General Date of Service: Dec 14, 2016. Pt evaluation today including: conversation w/ patient, physical exam, chart review, lab review, review of studies, review of inpatient medication list History of Present Illness The patient is a 86 year old male seen in follow-up. Edema unchanged. Fluid balance remains negative on oral diuretic therapy. Denies orthopnea or PND. No chest discomfort. Remains in atrial fibrillation with controlled ventricular response on telemetry. Allergies Coded Allergies: HERMAN Inhibitors (Verified Allergy, Intermediate, UNKNOWN, 11/05/16) Lisinopril (Verified Adverse Reaction, Unknown, COUGHING, 11/05/16) Social History Smoking Status: Former Smoker Hx Tobacco Use In Past Year?: No (gera 1970) Hx Alcohol Use - Type And Amou: No Hx Substance Use - Type And Am: No Problem List Medical Problems: (1) Acute on chronic renal failure Status: Acute (2) Anemia Status: Acute (3) Cellulitis of left leg Status: Acute (4) CHF (congestive heart failure) Status: Acute (5) Hypoxia Status: Acute (6) Left-sided epistaxis Status: Acute (7) Pneumonia Status: Acute (8) Sepsis Status: Acute (9) Urinary retention Status: Acute Review of Systems Respiratory: + dyspnea on exertion, No cough, No sputum, No wheezing, No shortness of breath, No dyspnea at rest, No hemoptysis Cardiac: + edema, No chest pain, No orthopnea, No PND, No claudication, No palpitations Physical Exam Vital Signs Last Vital Signs Documentation Date Time Temp Pulse Resp B/P (MAP) Pulse Ox O2 Delivery O2 Flow Rate FiO2 12/14/16 12:00 Room Air 12/14/16 11:05 36.2 64 12 110/60 (77) 95 12/13/16 11:50 2.0 Physical Exam Constitutional: Level of Distress: chronically ill Head: normocephalic ENMT: normal ENT inspection Lungs: Auscultation: no wheezing, decreased breath sounds, rales/crackles on the left Cardiovascular: Heart Auscultation: normal S1, normal S2, I/ SCOTTY, irregular rate rhythm Peripheral Pulses: Radial Pulse: normal on the right Abdomen: Inspection & Palpation: soft, non-distended, no tenderness, guarding & rebound Extremities: no cyanosis, edema (1-2+ B/L LE pretibial edema), ulcers (LLE), gangrene (Left 4th toe) Neurologic: Cranial Nerves: grossly intact Assessment and Plan Assessment and Plan IMPRESSION: 1. Acute decompensated systolic heart failure with large pleural effusions s/p bilateral thoracentesis (12/08 and 12/09). - Patient has improved significantly with IV diuretic therapy and thoracentesis during hospitalization. Residual lower extremity edema persists, however, fluid balance remains negative on oral diuretic therapy and renal function remains stable. 2. Cardiorenal syndrome - creatinine stable 3. Chronic rate controlled atrial fibrillation. 4. Peripheral vascular disease and left lower extremity osteomyelitis / gangrene status post left 3rd toe amputation and CT evidence of CT suspicion for septic arthritis/osteomyelitis of the head of the second metatarsal and second metatarsophalangeal joint 5. Aortic valve disease with history of bioprosthetic aortic valve replacement in 2007. 6. 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 7. Moderate mitral insufficiency. 8. Diabetes type 2. 9. Epistaxis PLAN AND RECOMMENDATIONS: Continue oral Lasix to 40 mg twice daily. Follow fluid balance, GFR, electrolytes, and daily weight. Continue beta norma and other cardiovascular medications as previously ordered. Continue low-dose aspirin. Antibiotics per ID. Await input from vascular surgery. Laboratory Results Last 24 Hours Test 12/13/16 15:58 12/13/16 20:25 12/14/16 06:47 12/14/16 07:10 Bedside Glucose 224 mg/dl 202 mg/dl 120 mg/dl Creatinine 1.80 mg/dl Est Creatinine Clear Calc Drug Dose 29.3 ml/min Estimated GFR () 38.1 Estimated GFR (Non- 32.9
--- NOTE | 2016-12-14 14:46 | Infectious Disease Progress Nt ---
Progress Note Date of Service Dec 14, 2016. Subjective Pt evaluation today including: conversation w/ patient, physical exam, chart review, lab review, review of studies, conversation w/ internal consultant, review of inpatient medication list Patient offering no new complaints today. Breathing is better. No fever or chills. Continues to tolerate antibiotics without apparent difficulty. erythema improving. All Other Systems: Reviewed and Negative Medications Current Inpatient Medications Medications (Trade) Dose Ordered Sig/Rosemarie Route Start Time Stop Time Status Last Admin Dose Admin Acetaminophen (Tylenol Tab) 650 mg Q4H PRN PO 12/06/16 12:45 01/05/17 12:44 Ondansetron HCl (Zofran Inj) 4 mg Q6H PRN IV 12/06/16 12:45 01/05/17 12:44 Enteral Nutritional Formula (Boost Breeze Nutritional Drink) 1 box DAILY PO 12/07/16 09:00 01/06/17 08:59 12/14/16 08:50 1 BOX Aspirin (Ecotrin Tab) 81 mg QAM PO 12/07/16 09:00 01/06/17 08:59 Future hold 12/14/16 08:47 81 MG Folic Acid (Folvite Tab) 1 mg QAM PO 12/07/16 09:00 01/06/17 08:59 12/14/16 09:59 1 MG Insulin Glargine (Lantus Solostar Pen) 10 units HS SC 12/06/16 21:00 01/05/17 20:59 12/13/16 20:27 10 UNITS Metoprolol Tartrate (Lopressor Tab) 25 mg BID PO 12/06/16 21:00 01/05/17 20:59 12/14/16 08:48 25 MG Multivitamins/ Minerals (Multivitamin W/ Minerals Tab) 1 tab QAM PO 12/07/16 09:00 01/06/17 08:59 12/14/16 08:49 1 TAB Potassium Chloride (Klor-Con Tab) 20 meq DAILY PO 12/07/16 09:00 01/06/17 08:59 12/14/16 08:50 20 MEQ Ascorbic Acid (Vitamin C Tab) 500 mg DAILY PO 12/07/16 09:00 01/06/17 08:59 12/14/16 08:48 500 MG Cholecalciferol (Vitamin D Tab) 2,000 inter.unit QAM PO 12/07/16 09:00 01/06/17 08:59 12/14/16 08:48 2,000 INTER.UNIT Ferrous Sulfate (Feosol Tab) 325 mg TIDM PO 12/06/16 16:45 01/05/17 16:44 12/14/16 12:14 325 MG Insulin Aspart (novoLOG ASPART) SLIDING SCALE If C... ACHS SC 12/06/16 16:15 01/05/17 16:14 12/14/16 12:02 5 UNITS Glucose (Glucose 40% Gel) 15-30 GRAMS 15 GRAMS... UD PRN PO 12/06/16 13:30 01/05/17 13:29 Glucose (Glucose Chew Tab) 4-8 Tablets 4 Tabl... UD PRN PO 12/06/16 13:30 01/05/17 13:29 Dextrose (Dextrose 50% 50ML Syringe) 25-50ML OF 50% DW IV FOR... UD PRN IV 12/06/16 13:30 01/05/17 13:29 Glucagon (Glucagon Inj) 1 mg UD PRN SQ 12/06/16 13:30 01/05/17 13:29 Piperacillin Sod/ Tazobactam Sod (Consult) 1 ea UD PRN N/A 12/06/16 13:30 12/17/16 22:00 Piperacillin Sod/ Tazobactam Sod 3.375 gm/Dextrose 115 ml @ 28.75 mls/ hr Q8H IV 12/06/16 16:00 12/17/16 23:59 12/14/16 08:46 28.75 MLS/HR Heparin Sodium (Porcine) (Heparin 10 Unit/ ml 5 ml Flush) 5 ml PRN PRN FLUSH 12/06/16 22:15 01/05/17 22:14 12/08/16 04:59 5 ML Heparin Sodium (Porcine) (Heparin Sq 5000 Unit/0.5ml) 5,000 unit Q8 SQ 12/07/16 06:00 01/06/17 05:59 Future hold 12/14/16 13:41 5,000 UNIT Daptomycin 500 mg/ Sodium Chloride 60 ml @ 100 mls/hr Q48H IV 12/10/16 20:00 01/21/17 19:59 12/12/16 21:10 100 MLS/HR Furosemide (Lasix Tab) 40 mg QAM PO 12/13/16 09:00 01/12/17 08:59 12/14/16 08:49 40 MG Objective Vital Signs Date Time Temp Pulse Resp B/P (MAP) Pulse Ox O2 Delivery O2 Flow Rate FiO2 12/14/16 12:00 Room Air 12/14/16 11:05 36.2 64 12 110/60 (77) 95 Room Air 12/14/16 09:13 99 Room Air 12/14/16 08:00 Room Air 12/14/16 07:41 36.3 70 20 118/68 (85) 99 Room Air 12/14/16 04:00 Room Air 12/14/16 04:00 36.5 75 22 113/56 (75) 91 Room Air 12/14/16 00:00 Room Air 12/13/16 23:51 36.4 76 22 108/70 (83) 97 Room Air 12/13/16 20:00 Room Air 12/13/16 19:55 36.5 81 22 133/69 (90) 94 Room Air 12/13/16 17:14 Room Air 12/13/16 16:05 Room Air 12/13/16 15:21 36.5 85 22 120/63 (82) 94 Room Air Physical Exam General Appearance: no apparent distress, + pertinent finding (Chronically ill- appearing) Eyes: normal inspection, sclerae normal ENT: normal ENT inspection, pharynx normal Neck: supple, no adenopathy, trachea midline Respiratory/Chest: chest non-tender, no respiratory distress, no accessory muscle use, + rales Cardiovascular: no gallop, + systolic murmur, + irregularly irregular Abdomen: normal bowel sounds, non tender, soft, no organomegaly Extremities: no calf tenderness, + pertinent finding (Left 5th toe gangrene) Neurologic/Psychiatric: alert, oriented x 3 Skin: normal color, no rash Lymphatic: no adenopathy Laboratory Results Last 24 Hours Test 12/13/16 15:58 12/13/16 20:25 12/14/16 06:47 12/14/16 07:10 Bedside Glucose 224 mg/dl 202 mg/dl 120 mg/dl Creatinine 1.80 mg/dl Est Creatinine Clear Calc Drug Dose 29.3 ml/min Estimated GFR () 38.1 Estimated GFR (Non- 32.9 Test 12/14/16 11:01 Bedside Glucose 273 mg/dl Assessment and Plan Osteomyelitis left foot/toes with dry gangrene left 5th toe in setting of severe PAD. Agree with need for amputation, suspect will require more than 5th toe. Continue Zosyn, daptomycin restarted. could consider use of vancomycin if daptomycin not approved by [facility]. Discussed with Dr. Solitario.
[2016-12-14] MEDS: DAPTOmycin IV 500 MG in SODIUM CHLORIDE 0.9% 50ML 50 ML IV SCH (20:09)
[2016-12-14] MEDS: INSULIN GLARGINE SOLOSTAR 100 UNITS/ML 3 ML PEN SC SCH (22:05)
[2016-12-15] VITALS (11 sets, daily range): BP systolic 114–121; BP diastolic 59–71; PULSE 73–101; TEMP 36.2–36.7; O2SAT 92–98
[2016-12-15] MEDS: PIPERACILL/TAZOBAC IV 3.375 GM in DEXTROSE 5% 100ML IV SCH ×4 (00:21→23:48)
[2016-12-15 04:26] LABS: HEMATOCRIT 28.4 % (42-52); MEAN CELL VOLUME 91.3 fL (80-100); MEAN CORPUSCULAR HGB CONC 30.6 g/dl (32-36); MEAN PLATELET VOLUME 10.6 fL (7.4-10.4); PLATELET COUNT 122 K/uL (130-400); RED BLOOD COUNT 3.11 M/uL (4.7-6.1); WHITE BLOOD COUNT 4.39 K/uL (4.8-10.8)
[2016-12-15 04:43] LABS: BUN/CREATININE RATIO 22.9 (10-20); CALCIUM 8.3 mg/dl (8.5-10.1); CREATININE 1.8 mg/dl (0.60-1.40); POTASSIUM 3.5 mmol/L (3.5-5.1)
[2016-12-15] MEDS: HEPARIN SOD 5000 UNIT/0.5 ML CARP SQ SCH ×3 (05:11→20:50)
[2016-12-15] MEDS: INSULIN ASPART 100 UNITS/ML 3 ML PEN SC SCH ×4 (07:00→20:49)
[2016-12-15] MEDS: FERROUS SULFATE 325 MG TAB PO SCH ×3 (07:15→16:38)
--- NOTE | 2016-12-15 08:34 | SURGICAL CONSULTATION ---
DATE OF CONSULTATION: 12/15/2016 SUMMARY: This is an 86-year-old gentleman who I had seen in the office approximately 2 weeks ago. At that time, he presented at the request of Dr. Patel for evaluation of possible amputation of the fifth toe that was gangrenous. The story dates back that he has significant peripheral vascular disease, and had a left femoral endarterectomy by Dr. Jefferson in September with an amputation of the third toe. That area of the third toe continued to ooze a little better when I saw him in the office the skin was not cellulitic and I was not sure whether or not the oozing that they were describing at that area may have been related to significant peripheral vascular disease with entrapment of significant fluid in both lower extremities. However, on that day I did note that he had what malum perforans type of ulceration at the base of the fourth toe. There was no cellulitis at that time except for dry gangrene of the toe. Since I was going on vacation I offered him other possibility, but they wanted to wait until I got back from vacation. In the interim, the patient was admitted on 12/06/2016 to the hospital for ongoing shortness of breath and congestive heart failure. PAST MEDICAL HISTORY: Aortic stenosis, atrial fibrillation, carotid artery disease, chronic kidney disease stage III, diabetes mellitus type 2, peripheral neuropathy, dyslipidemia, polyp in the colon that was benign, diabetic ulcer of foot, hypertension, rheumatoid arthritis, septic joint in the knee joint, systolic and diastolic congestive heart failure. PAST SURGICAL HISTORY: Amputation of the left foot third toe in September of this year, aortic valve replacement prosthetic valve, cataract extraction, cholecystectomy done in 2001, status post coronary artery bypass grafting. SOCIAL HISTORY: The patient is a former smoker, lives [place] a [place]. ALLERGIES: HE IS ALLERGIC TO HERMAN INHIBITORS AND LISINOPRIL. MEDICATIONS: Quite extensive and they are well represented on the chart. The was reviewed completely. PHYSICAL EXAMINATION: GENERAL: As I saw him today Chaz looked much better than I saw him in the office. He appears to be less short of breath. Alert, coherent. LEFT FOOT: The focus to this exam was to the left foot which basically showed fair capillary refill. The patient had no real change since last seen in the office where gangrenous left fifth toe which involving both phalanx. 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 The 3rd toe amputation site there was no evidence of cellulitis and no drainage today. The second and first toe appeared to be fine. Discussion was had with the patient regarding the level of amputation and I felt the minimal we do would benefit him hopefully to get it to heal. Certainly we will proceed with amputation of the transmetatarsal the fifth, fourth and possibly the third toe since there is radiographically some osteo in remnant of the metatarsal head. The second toe by radiographs showed the possibility of septic arthritis with no real foci definitive of osteo and first toe was fine. Risk and complications of surgery were explained to the patient, as I explained to him in the office with his daughter, including bleeding, infection and if this does not work probably may end up going to a higher level of amputation, but hopefully we can avoid that. Given the extent of his fluid retention would hate to eliminate a good reservoir for excess fluid by doing a BK or possibly an AK. Will proceed accordingly tomorrow. We will continue with heparin subQ. We will keep him n.p.o. after midnight except meds. The patient was marked.
[2016-12-15] MEDS: ASPIRIN 81 MG ECTAB PO SCH (09:06)
[2016-12-15] MEDS: POTASSIUM CHLORIDE 20 MEQ TABCR PO SCH (09:07)
[2016-12-15] MEDS: METOPROLOL TARTRATE 25 MG TAB PO SCH ×2 (09:08→20:47)
[2016-12-15] MEDS: FUROSEMIDE 40 MG TAB PO SCH (09:08)
[2016-12-15] MEDS: CEROVITE ADV FORMULA TAB PO SCH (09:09)
[2016-12-15] MEDS: ASCORBIC ACID 500 MG TAB PO SCH (09:10)
[2016-12-15] MEDS: CHOLECALCIFEROL 1000 INTER.UNIT TAB PO SCH (09:10)
[2016-12-15] MEDS: BOOST BREEZE NUTRITION DRINK 1 BOX PO SCH (09:13)
[2016-12-15] MEDS ORDERED: FUROSEMIDE INJ 60 MG in SYRINGE 0 ML IV ONE (12:00)
--- NOTE | 2016-12-15 12:30 | Cardiology Follow-Up ---
Subjective General Date of Service: Dec 15, 2016. Pt evaluation today including: conversation w/ patient, physical exam, chart review, lab review, review of studies, review of inpatient medication list History of Present Illness The patient is a 86 year old male seen in follow-up. Fluid balance remains negative, however, Notes orthopnea. Dyspnea on exertion unchanged. Lower extremity edema unchanged. Plan for amputation tomorrow. Allergies Coded Allergies: HERMAN Inhibitors (Verified Allergy, Intermediate, UNKNOWN, 11/05/16) Lisinopril (Verified Adverse Reaction, Unknown, COUGHING, 11/05/16) Social History Smoking Status: Former Smoker Hx Tobacco Use In Past Year?: No (gera 1970) Hx Alcohol Use - Type And Amou: No Hx Substance Use - Type And Am: No Problem List Medical Problems: (1) Acute on chronic renal failure Status: Acute (2) Anemia Status: Acute (3) Cellulitis of left leg Status: Acute (4) CHF (congestive heart failure) Status: Acute (5) Hypoxia Status: Acute (6) Left-sided epistaxis Status: Acute (7) Pneumonia Status: Acute (8) Sepsis Status: Acute (9) Urinary retention Status: Acute Review of Systems Respiratory: + shortness of breath, + dyspnea on exertion, No cough, No sputum , No wheezing, No dyspnea at rest, No hemoptysis Cardiac: + edema, No chest pain, No orthopnea, No PND, No claudication, No palpitations Physical Exam Vital Signs Last Vital Signs Documentation Date Time Temp Pulse Resp B/P (MAP) Pulse Ox O2 Delivery O2 Flow Rate FiO2 12/15/16 11:38 36.2 89 116/71 (86) 95 Room Air 12/15/16 11:14 18 12/13/16 11:50 2.0 Physical Exam Constitutional: Level of Distress: chronically ill Head: normocephalic ENMT: normal ENT inspection Lungs: Auscultation: no wheezing, decreased breath sounds, rales/crackles on the left Cardiovascular: Heart Auscultation: normal S1, normal S2, I/ SCOTTY, irregular rate rhythm Peripheral Pulses: Radial Pulse: normal on the right Abdomen: Inspection & Palpation: soft, non-distended, no tenderness, guarding & rebound Extremities: no cyanosis, edema (1-2+ B/L LE pretibial edema), ulcers (LLE), gangrene (Left 4th toe) Neurologic: Cranial Nerves: grossly intact Assessment and Plan Assessment and Plan IMPRESSION: 1. Acute decompensated systolic heart failure with large pleural effusions s/p bilateral thoracentesis (12/08 and 12/09). -Fluid balance remains negative, however, orthopnea reported overnight 2. Cardiorenal syndrome - creatinine stable 3. Chronic rate controlled atrial fibrillation. 4. 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 Aortic valve disease with history of bioprosthetic aortic valve replacement in 2007. 6. 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 7. Moderate mitral insufficiency. 8. Diabetes type 2. 9. Epistaxis PLAN AND RECOMMENDATIONS: I will attempt to optimize patient for surgery tomorrow. 60 mg intravenous Lasix will be given x 1. Continue oral Lasix to 40 mg twice daily. Follow fluid balance, GFR, electrolytes, and daily weight. Continue beta norma and other cardiovascular medications as previously ordered. Continue low-dose aspirin. Antibiotics per ID. Amputation in a.m. Laboratory Results Last 24 Hours Test 12/14/16 16:10 12/14/16 20:14 12/15/16 04:05 12/15/16 07:53 Bedside Glucose 224 mg/dl 192 mg/dl 113 mg/dl White Blood Count 4.39 K/uL Red Blood Count 3.11 M/uL Hemoglobin 8.7 g/dL Hematocrit 28.4 % Mean Corpuscular Volume 91.3 fL Mean Corpuscular Hemoglobin 28.0 pg Mean Corpuscular Hemoglobin Concent 30.6 g/dl RDW Standard Deviation 71.7 fL RDW Coefficient of Variation 21.2 % Platelet Count 122 K/uL Mean Platelet Volume 10.6 fL Sodium Level 138 mmol/L Potassium Level 3.5 mmol/L Chloride Level 99 mmol/L Carbon Dioxide Level 31 mmol/L Anion Gap 8.0 mmol/L Blood Urea Nitrogen 41 mg/dl Creatinine 1.80 mg/dl Est Creatinine Clear Calc Drug Dose 29.3 ml/min Estimated GFR () 38.1 Estimated GFR (Non- 32.9 BUN/Creatinine Ratio 22.9 Random Glucose 141 mg/dl Calcium Level 8.3 mg/dl
--- NOTE | 2016-12-15 12:43 | Anesthesiology Progress Note ---
Anesthesia Progress Note Date of Service Dec 15, 2016. Progress Notes Pt is scheduled for L foot metatarsal amputation of 4th and 5th toes, possible 3rd toe amp, and possible complete metatarsal amputation. The is a 86M with a complicated medical history, which includes h/o PNA and pleural effusions, afib , CAD s/p CT, ischemic CM, CHF, PVD, carotid stenosis, CVA in 2007, RA, DM2 with neuropathy, CKD, anemia, and skin cancer. The pt appears to be euvolemic based on vital signs and physical examination. He has been adequately diuresed. The pt recently underwent general anesthetic for his LLE endarterectomy without any anesthetic complications. The pt is an acceptable candidate for general anesthesia. Consent was obtained from the patient. All questions/concerns were addressed.
--- NOTE | 2016-12-15 16:31 | Progress Note ---
Medicine Progress Note Date & Time of Visit: Dec 15, 2016 at 16:19. Subjective Pt was seen and examined' Lying in bed with no distress Denies any chest pain, palpitation, dizziness and SOB Objective Last 8 Hrs Date Time Temp Pulse Resp B/P (MAP) Pulse Ox O2 Delivery O2 Flow Rate FiO2 12/15/16 16:10 Room Air 12/15/16 15:43 36.3 83 18 121/60 (80) 97 Room Air 12/15/16 11:38 36.2 89 116/71 (86) 95 Room Air 12/15/16 11:37 36.2 89 12/15/16 11:20 Room Air 12/15/16 11:14 36.3 73 18 114/59 (77) 92 Room Air 12/15/16 09:46 95 Room Air Physical Exam: General- No acute distress Head- atraumatic Eyes- PERRL, EOMI ENT- oropharynx clear Neck- no JVD Lungs- No wheezing Heart- regular rhythm Abdomen- normal bowel sounds, soft Extremities +edema, no calf tenderness Neuro- alert, oriented, PERRL, EOMI Skin- warm & dry Laboratory Results: Last 24 Hours Test 12/14/16 20:14 12/15/16 04:05 12/15/16 06:19 12/15/16 07:53 Bedside Glucose 192 mg/dl 129 mg/dl 113 mg/dl White Blood Count 4.39 K/uL Red Blood Count 3.11 M/uL Hemoglobin 8.7 g/dL Hematocrit 28.4 % Mean Corpuscular Volume 91.3 fL Mean Corpuscular Hemoglobin 28.0 pg Mean Corpuscular Hemoglobin Concent 30.6 g/dl RDW Standard Deviation 71.7 fL RDW Coefficient of Variation 21.2 % Platelet Count 122 K/uL Mean Platelet Volume 10.6 fL Sodium Level 138 mmol/L Potassium Level 3.5 mmol/L Chloride Level 99 mmol/L Carbon Dioxide Level 31 mmol/L Anion Gap 8.0 mmol/L Blood Urea Nitrogen 41 mg/dl Creatinine 1.80 mg/dl Est Creatinine Clear Calc Drug Dose 29.3 ml/min Estimated GFR () 38.1 Estimated GFR (Non- 32.9 BUN/Creatinine Ratio 22.9 Random Glucose 141 mg/dl Calcium Level 8.3 mg/dl Test 12/15/16 12:18 12/15/16 12:19 Bedside Glucose 218 mg/dl 203 mg/dl Assessment & Plan ACUTE ON CHRONIC SYSTOLIC CHF BL PLEURAL EFFUSIONS - Present with worsening shortness of breath and lower extremity edema x 2 weeks despite outpatient titration of diuretics - CXR s on admission showed BL pleural effusions - Chest US showed large effusions that were marked for possible thoracentesis - Pulmonary on board - s/p right sided 12/08 thoracocentesis of 1400cc pleural fluid - s/p left sided 12/09 thoracentesis of 1500cc pleural fluid - On lasix 40 mg po BID - Continue fluid restriction - Last echo on 09/2016 showed EF 35-40% - cardiology on board -Continue beta norma and low-dose aspirin. - Symptoms of orthopnea reported last night - Lasix IV 60mgx1 order by cardiology - Continue Lasix 40mg BID Cardiorenal syndrome - creatinine stable Chronic rate controlled atrial fibrillation. 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 Ahumada - Continue IV Zosyn and daptomycin - wound care On board - Plan for left toes (5th and possible 3th toes) amputation tomorrow - NPO after midnight Lower extremity CT scan done showed: 1. Findings consistent with osteomyelitis of the proximal phalanx of the third toe with concern for septic arthritis of the third metatarsophalangeal joint. This be better demonstrated on MR. 2. Suspicion for septic arthritis/osteomyelitis of the head of the second metatarsal and second metatarsophalangeal joint. -ID recommended starting daptomycin on 12/10/16 in addition to patient already on Zosyn IV for osteomyelitis -Surgery on board -Schedule for toe amputation on 12/[address] Ahumada for toe amputations on 12/16/16 DM recent Hba1c 6.5 on 09/2016 Lantus + SSI ANEMIA chronic Hbg stable Stg II Sacral Decub-POA, Optifoam applied, EHOB mattress. Continue daily wound care Wound care on board Abdominal bruising -From subQ heparin -Ultrasound showed soft tissue contusion of lower abdominal wall and a 1.6 x 1.2 x 0.5 cm slightly complex subcutaneous fluid collection likely small hematoma. - Stable DVT Px will hod morning dose of heparin subq for the surgery CODE STATUS/disposition - Patient is DNR - Plan for toe amputation on 12/16/16 - cardiology service to arrange outpatient follow up within 1 week of discharge - IV daptomycin/ Iv Zosyn, this will need to be arranged as outpatient Consultants: Cardiology Surgery Current Inpatient Medications: Current Inpatient Medications Medications (Trade) Dose Ordered Sig/Rosemarie Route Start Time Stop Time Status Last Admin Dose Admin Acetaminophen (Tylenol Tab) 650 mg Q4H PRN PO 12/06/16 12:45 01/05/17 12:44 Ondansetron HCl (Zofran Inj) 4 mg Q6H PRN IV 12/06/16 12:45 01/05/17 12:44 Enteral Nutritional Formula (Boost Breeze Nutritional Drink) 1 box DAILY PO 12/07/16 09:00 01/06/17 08:59 12/15/16 09:13 1 BOX Aspirin (Ecotrin Tab) 81 mg QAM PO 12/07/16 09:00 01/06/17 08:59 Future hold 12/15/16 09:06 81 MG Folic Acid (Folvite Tab) 1 mg QAM PO 12/07/16 09:00 01/06/17 08:59 12/15/16 09:06 1 MG Insulin Glargine (Lantus Solostar Pen) 10 units HS SC 12/06/16 21:00 01/05/17 20:59 12/14/16 22:05 10 UNITS Metoprolol Tartrate (Lopressor Tab) 25 mg BID PO 12/06/16 21:00 01/05/17 20:59 12/15/16 09:08 25 MG Multivitamins/ Minerals (Multivitamin W/ Minerals Tab) 1 tab QAM PO 12/07/16 09:00 01/06/17 08:59 12/15/16 09:09 1 TAB Potassium Chloride (Klor-Con Tab) 20 meq DAILY PO 12/07/16 09:00 01/06/17 08:59 12/15/16 09:07 20 MEQ Ascorbic Acid (Vitamin C Tab) 500 mg DAILY PO 12/07/16 09:00 01/06/17 08:59 12/15/16 09:10 500 MG Cholecalciferol (Vitamin D Tab) 2,000 inter.unit QAM PO 12/07/16 09:00 01/06/17 08:59 12/15/16 09:10 2,000 INTER.UNIT Ferrous Sulfate (Feosol Tab) 325 mg TIDM PO 12/06/16 16:45 01/05/17 16:44 12/15/16 12:12 325 MG Insulin Aspart (novoLOG ASPART) SLIDING SCALE If C... ACHS SC 12/06/16 16:15 01/05/17 16:14 12/15/16 13:08 3 UNITS Glucose (Glucose 40% Gel) 15-30 GRAMS 15 GRAMS... UD PRN PO 12/06/16 13:30 01/05/17 13:29 Glucose (Glucose Chew Tab) 4-8 Tablets 4 Tabl... UD PRN PO 12/06/16 13:30 01/05/17 13:29 Dextrose (Dextrose 50% 50ML Syringe) 25-50ML OF 50% DW IV FOR... UD PRN IV 12/06/16 13:30 01/05/17 13:29 Glucagon (Glucagon Inj) 1 mg UD PRN SQ 12/06/16 13:30 01/05/17 13:29 Piperacillin Sod/ Tazobactam Sod (Consult) 1 ea UD PRN N/A 12/06/16 13:30 12/17/16 22:00 Piperacillin Sod/ Tazobactam Sod 3.375 gm/Dextrose 115 ml @ 28.75 mls/ hr Q8H IV 12/06/16 16:00 12/17/16 23:59 12/15/16 08:46 28.75 MLS/HR Heparin Sodium (Porcine) (Heparin 10 Unit/ ml 5 ml Flush) 5 ml PRN PRN FLUSH 12/06/16 22:15 01/05/17 22:14 12/08/16 04:59 5 ML Heparin Sodium (Porcine) (Heparin Sq 5000 Unit/0.5ml) 5,000 unit Q8 SQ 12/07/16 06:00 01/06/17 05:59 Future hold 12/15/16 13:08 5,000 UNIT Daptomycin 500 mg/ Sodium Chloride 60 ml @ 100 mls/hr Q48H IV 12/10/16 20:00 11/3/17 19:59 12/14/16 20:09 100 MLS/HR Furosemide (Lasix Tab) 40 mg QAM PO 12/13/16 09:00 01/12/17 08:59 12/15/16 09:08 40 MG
--- NOTE | 2016-12-15 17:44 | Infectious Disease Progress Nt ---
Progress Note Date of Service Dec 15, 2016. Subjective Pt evaluation today including: conversation w/ patient, physical exam, chart review, lab review, review of studies, conversation w/ spa consultant, review of inpatient medication list Offers no new complaints today. Remains afebrile. Tolerating antibiotics without apparent difficulty. Awaiting surgery tomorrow. All Other Systems: Reviewed and Negative Medications Current Inpatient Medications Medications (Trade) Dose Ordered Sig/Rosemarie Route Start Time Stop Time Status Last Admin Dose Admin Acetaminophen (Tylenol Tab) 650 mg Q4H PRN PO 12/06/16 12:45 01/05/17 12:44 Ondansetron HCl (Zofran Inj) 4 mg Q6H PRN IV 12/06/16 12:45 01/05/17 12:44 Enteral Nutritional Formula (Boost Breeze Nutritional Drink) 1 box DAILY PO 12/07/16 09:00 01/06/17 08:59 12/15/16 09:13 1 BOX Aspirin (Ecotrin Tab) 81 mg QAM PO 12/07/16 09:00 01/06/17 08:59 Future hold 12/15/16 09:06 81 MG Folic Acid (Folvite Tab) 1 mg QAM PO 12/07/16 09:00 01/06/17 08:59 12/15/16 09:06 1 MG Insulin Glargine (Lantus Solostar Pen) 10 units HS SC 12/06/16 21:00 01/05/17 20:59 12/14/16 22:05 10 UNITS Metoprolol Tartrate (Lopressor Tab) 25 mg BID PO 12/06/16 21:00 01/05/17 20:59 12/15/16 09:08 25 MG Multivitamins/ Minerals (Multivitamin W/ Minerals Tab) 1 tab QAM PO 12/07/16 09:00 01/06/17 08:59 12/15/16 09:09 1 TAB Potassium Chloride (Klor-Con Tab) 20 meq DAILY PO 12/07/16 09:00 01/06/17 08:59 12/15/16 09:07 20 MEQ Ascorbic Acid (Vitamin C Tab) 500 mg DAILY PO 12/07/16 09:00 01/06/17 08:59 12/15/16 09:10 500 MG Cholecalciferol (Vitamin D Tab) 2,000 inter.unit QAM PO 12/07/16 09:00 01/06/17 08:59 12/15/16 09:10 2,000 INTER.UNIT Ferrous Sulfate (Feosol Tab) 325 mg TIDM PO 12/06/16 16:45 01/05/17 16:44 12/15/16 16:38 325 MG Insulin Aspart (novoLOG ASPART) SLIDING SCALE If C... ACHS SC 12/06/16 16:15 01/05/17 16:14 12/15/16 13:08 3 UNITS Glucose (Glucose 40% Gel) 15-30 GRAMS 15 GRAMS... UD PRN PO 12/06/16 13:30 01/05/17 13:29 Glucose (Glucose Chew Tab) 4-8 Tablets 4 Tabl... UD PRN PO 12/06/16 13:30 01/05/17 13:29 Dextrose (Dextrose 50% 50ML Syringe) 25-50ML OF 50% DW IV FOR... UD PRN IV 12/06/16 13:30 01/05/17 13:29 Glucagon (Glucagon Inj) 1 mg UD PRN SQ 12/06/16 13:30 01/05/17 13:29 Piperacillin Sod/ Tazobactam Sod (Consult) 1 ea UD PRN N/A 12/06/16 13:30 12/17/16 22:00 Piperacillin Sod/ Tazobactam Sod 3.375 gm/Dextrose 115 ml @ 28.75 mls/ hr Q8H IV 12/06/16 16:00 12/17/16 23:59 12/15/16 16:38 28.75 MLS/HR Heparin Sodium (Porcine) (Heparin 10 Unit/ ml 5 ml Flush) 5 ml PRN PRN FLUSH 12/06/16 22:15 01/05/17 22:14 12/08/16 04:59 5 ML Heparin Sodium (Porcine) (Heparin Sq 5000 Unit/0.5ml) 5,000 unit Q8 SQ 12/07/16 06:00 01/06/17 05:59 Future Hold 12/15/16 13:08 5,000 UNIT Daptomycin 500 mg/ Sodium Chloride 60 ml @ 100 mls/hr Q48H IV 12/10/16 20:00 01/21/17 19:59 12/14/16 20:09 100 MLS/HR Furosemide (Lasix Tab) 40 mg QAM PO 12/13/16 09:00 01/12/17 08:59 12/15/16 09:08 40 MG Objective Vital Signs Date Time Temp Pulse Resp B/P (MAP) Pulse Ox O2 Delivery O2 Flow Rate FiO2 12/15/16 16:10 Room Air 12/15/16 15:43 36.3 83 18 121/60 (80) 97 Room Air 12/15/16 11:38 36.2 89 116/71 (86) 95 Room Air 12/15/16 11:37 36.2 89 12/15/16 11:20 Room Air 12/15/16 11:14 36.3 73 18 114/59 (77) 92 Room Air 12/15/16 09:46 95 Room Air 12/15/16 07:30 Room Air 12/15/16 07:16 36.3 78 19 114/62 (79) 98 Room Air 12/15/16 04:00 93 Room Air 12/15/16 03:09 36.7 101 19 114/63 (80) 93 Room Air 12/15/16 00:10 96 Room Air 12/14/16 23:12 36.4 76 19 117/62 (80) 96 Room Air 12/14/16 20:00 97 Room Air 12/14/16 19:22 36.6 88 20 119/70 (86) 97 Room Air Physical Exam General Appearance: no apparent distress, + pertinent finding (chroniclly ill- appering) Eyes: normal inspection, EOMI, sclerae normal ENT: normal ENT inspection, pharynx normal Neck: supple, thyroid normal, trachea midline Respiratory/Chest: chest non-tender, lungs clear, normal breath sounds, no respiratory distress Cardiovascular: no gallop, + systolic murmur, + irregularly irregular Abdomen: normal bowel sounds, non tender, soft, no organomegaly Extremities: non-tender, no calf tenderness Neurologic/Psychiatric: alert, oriented x 3 Skin: normal color, no rash Lymphatic: no adenopathy Laboratory Results Last 24 Hours Test 12/14/16 20:14 12/15/16 04:05 12/15/16 06:19 12/15/16 07:53 Bedside Glucose 192 mg/dl 129 mg/dl 113 mg/dl White Blood Count 4.39 K/uL Red Blood Count 3.11 M/uL Hemoglobin 8.7 g/dL Hematocrit 28.4 % Mean Corpuscular Volume 91.3 fL Mean Corpuscular Hemoglobin 28.0 pg Mean Corpuscular Hemoglobin Concent 30.6 g/dl RDW Standard Deviation 71.7 fL RDW Coefficient of Variation 21.2 % Platelet Count 122 K/uL Mean Platelet Volume 10.6 fL Sodium Level 138 mmol/L Potassium Level 3.5 mmol/L Chloride Level 99 mmol/L Carbon Dioxide Level 31 mmol/L Anion Gap 8.0 mmol/L Blood Urea Nitrogen 41 mg/dl Creatinine 1.80 mg/dl Est Creatinine Clear Calc Drug Dose 29.3 ml/min Estimated GFR () 38.1 Estimated GFR (Non- 32.9 BUN/Creatinine Ratio 22.9 Random Glucose 141 mg/dl Calcium Level 8.3 mg/dl Test 12/15/16 12:18 12/15/16 12:19 12/15/16 17:38 Bedside Glucose 218 mg/dl 203 mg/dl Assessment and Plan Osteomyelitis left foot/toes with dry gangrene left 5th toe in setting of severe PAD. Agree with need for amputation, suspect will require more than 5th toe. Continue Zosyn, daptomycin restarted. Await OR findings.
[2016-12-15 18:18] LABS: BUN/CREATININE RATIO 21.2 (10-20); CALCIUM 8.9 mg/dl (8.5-10.1); CREATININE 1.8 mg/dl (0.60-1.40); POTASSIUM 3.3 mmol/L (3.5-5.1)
[2016-12-15] MEDS: INSULIN GLARGINE SOLOSTAR 100 UNITS/ML 3 ML PEN SC SCH (20:50)
[2016-12-16] VITALS (12 sets, daily range): BP systolic 109–125; BP diastolic 62–80; PULSE 71–96; TEMP 35.6–36.7; O2SAT 94–100
[2016-12-16] MEDS ORDERED: HYDROmorphone INJ 0.5 MG/0.5 ML SYR IV PRN (00:30)
[2016-12-16] MEDS ORDERED: TRAMADOL HCL 50 MG TAB PO PRN (00:30)
[2016-12-16 00:52] LABS: MEAN CORPUSCULAR HGB CONC 30.1 g/dl (32-36); MEAN PLATELET VOLUME 10.4 fL (7.4-10.4); PLATELET COUNT 134 K/uL (130-400)
--- NOTE | 2016-12-16 01:16 | Urology Consultation ---
History General Date of Service: Dec 16, 2016. Chief Complaint: Primary service unable to remove catheter Primary Care Physician: Angus Bach History of Present Illness Called due to matos trauma. Patient pulling on matos, displaced, no longer draining with hematuria in small amounts. Primary service unable to remove, balloon does not deflate despite attempts and removal of balloon port. Laboratory Last 24 Hours Test 12/15/16 04:05 12/15/16 06:19 12/15/16 07:53 12/15/16 12:18 White Blood Count 4.39 K/uL Red Blood Count 3.11 M/uL Hemoglobin 8.7 g/dL Hematocrit 28.4 % Mean Corpuscular Volume 91.3 fL Mean Corpuscular Hemoglobin 28.0 pg Mean Corpuscular Hemoglobin Concent 30.6 g/dl RDW Standard Deviation 71.7 fL RDW Coefficient of Variation 21.2 % Platelet Count 122 K/uL Mean Platelet Volume 10.6 fL Sodium Level 138 mmol/L Potassium Level 3.5 mmol/L Chloride Level 99 mmol/L Carbon Dioxide Level 31 mmol/L Anion Gap 8.0 mmol/L Blood Urea Nitrogen 41 mg/dl Creatinine 1.80 mg/dl Est Creatinine Clear Calc Drug Dose 29.3 ml/min Estimated GFR () 38.1 Estimated GFR (Non- 32.9 BUN/Creatinine Ratio 22.9 Random Glucose 141 mg/dl Calcium Level 8.3 mg/dl Bedside Glucose 129 mg/dl 113 mg/dl 218 mg/dl Test 12/15/16 12:19 12/15/16 16:05 12/15/16 17:38 12/15/16 20:07 Bedside Glucose 203 mg/dl 180 mg/dl 194 mg/dl Sodium Level 136 mmol/L Potassium Level 3.3 mmol/L Chloride Level 97 mmol/L Carbon Dioxide Level 29 mmol/L Anion Gap 10.0 mmol/L Blood Urea Nitrogen 38 mg/dl Creatinine 1.80 mg/dl Est Creatinine Clear Calc Drug Dose 29.3 ml/min Estimated GFR () 38.1 Estimated GFR (Non- 32.9 BUN/Creatinine Ratio 21.2 Random Glucose 158 mg/dl Calcium Level 8.9 mg/dl Test 12/16/16 00:38 Mean Corpuscular Hemoglobin Concent 30.1 g/dl Platelet Count 134 K/uL Mean Platelet Volume 10.4 fL Nucleated RBC Absolute Count (auto) 0.03 K/uL Nucleated Red Blood Cells % 0.7 % Problem List Medical Problems: (1) Acute on chronic renal failure Status: Acute (2) Anemia Status: Acute (3) Cellulitis of left leg Status: Acute (4) CHF (congestive heart failure) Status: Acute (5) Hypoxia Status: Acute (6) Left-sided epistaxis Status: Acute (7) Pneumonia Status: Acute (8) Sepsis Status: Acute (9) Urinary retention Status: Acute Family History Cancer BROTHER SISTER Coronary artery disease FATHER Kidney disease BROTHER Social History Hx Tobacco Use In Past Year?: No (gera 1970) Housing status: lives with family, care home Immunizations History of Influenza Vaccine: Yes Influenza Vaccine Date: Feb 06, 2016 History of Tetanus Vaccine?: Yes Tetanus Immunization Date: May 22, 2009 History of Pneumococcal: Yes Pneumococcal Date: Feb 06, 2016 History of MDRO No Allergies Coded Allergies: HERMAN Inhibitors (Verified Allergy, Intermediate, UNKNOWN, 11/05/16) Lisinopril (Verified Adverse Reaction, Unknown, COUGHING, 11/05/16) Medications Home Medications: Home Meds and Scripts Medications Dose Route/Sig Max Daily Dose Days Date Category Dose Instructions [Protein Liquid] 30 Ml PO DAILY 12/06/16 Reported Novolog Flexpen (Insulin Aspart) 100 Units/Ml Inj SQ ACHS 12/06/16 Reported SSI Vitamin C (Ascorbic Acid) 500 Mg Cap 500 Mg PO DAILY 12/06/16 Reported Furosemide 20 Mg Tab 2 Mg PO DAILY PRN 30 11/11/16 Rx Extra dose in afternoon or evening PRN for SOB or worsening edema. Zosyn (Piperacillin Sodium-Tazobactam) 1 Rosi Rosi 3.375 Gm IV Q8 35 11/11/16 Rx Stop date 12/17/16. Heparin Sodium (Heparin Sod (Porcine)) 5,000 Unit/0.5 Ml Inj 5,000 Unit SQ Q12 30 11/11/16 Rx May discontinue when ambulatory. Klor-Con M20 (Potassium Chloride) 20 Meq Tabcr 20 Meq PO DAILY 30 11/11/16 Rx Procrit (Epoetin Davian) 10,000 Units Inj 10,000 Units SQ Q 2 WKS 30 11/11/16 Reported Last dose at [facility] 11/10/16. Folvite (Folic Acid) 1 Mg Tab 1 Mg PO QAM 09/19/16 Reported Lantus (Insulin Glargine) 100 Unit/Ml Inj 10 Units SC HS 09/19/16 Reported Vitamin D3 (Cholecalciferol) 2,000 Unit Tab 2,000 Units PO QAM 90 09/19/16 Reported Mvi With Minerals (Multivitamins/Minerals) Tab 1 Tab PO QAM 09/19/16 Reported Lasix (Furosemide) 20 Mg Tab 20 Mg PO BID 09/19/16 Reported Kp Ferrous Sulfate (Ferrous Sulfate) 325 Mg Tab 1 Tab PO TID 09/19/16 Reported Lopressor (Metoprolol Tartrate) 25 Mg Tab 25 Mg PO BID 08/20/16 Reported Ecotrin Or Generic (Aspirin) 81 Mg Tab 81 Mg PO QAM 08/20/16 Reported Inpatient Medications: Current Inpatient Medications Medications (Trade) Dose Ordered Sig/Rosemarie Route Start Time Stop Time Status Last Admin Dose Admin Acetaminophen (Tylenol Tab) 650 mg Q4H PRN PO 12/06/16 12:45 01/05/17 12:44 Ondansetron HCl (Zofran Inj) 4 mg Q6H PRN IV 12/06/16 12:45 01/05/17 12:44 Enteral Nutritional Formula (Boost Breeze Nutritional Drink) 1 box DAILY PO 12/07/16 09:00 01/06/17 08:59 12/15/16 09:13 1 BOX Aspirin (Ecotrin Tab) 81 mg QAM PO 12/07/16 09:00 01/06/17 08:59 Future Hold 12/15/16 09:06 81 MG Folic Acid (Folvite Tab) 1 mg QAM PO 12/07/16 09:00 01/06/17 08:59 12/15/16 09:06 1 MG Insulin Glargine (Lantus Solostar Pen) 10 units HS SC 12/06/16 21:00 01/05/17 20:59 12/15/16 20:50 10 UNITS Metoprolol Tartrate (Lopressor Tab) 25 mg BID PO 12/06/16 21:00 01/05/17 20:59 12/15/16 20:47 25 MG Multivitamins/ Minerals (Multivitamin W/ Minerals Tab) 1 tab QAM PO 12/07/16 09:00 01/06/17 08:59 12/15/16 09:09 1 TAB Potassium Chloride (Klor-Con Tab) 20 meq DAILY PO 12/07/16 09:00 01/06/17 08:59 12/15/16 09:07 20 MEQ Ascorbic Acid (Vitamin C Tab) 500 mg DAILY PO 12/07/16 09:00 01/06/17 08:59 12/15/16 09:10 500 MG Cholecalciferol (Vitamin D Tab) 2,000 inter.unit QAM PO 12/07/16 09:00 01/06/17 08:59 12/15/16 09:10 2,000 INTER.UNIT Ferrous Sulfate (Feosol Tab) 325 mg TIDM PO 12/06/16 16:45 01/05/17 16:44 12/15/16 16:38 325 MG Insulin Aspart (novoLOG ASPART) SLIDING SCALE If C... ACHS SC 12/06/16 16:15 01/05/17 16:14 12/15/16 20:49 1 UNITS Glucose (Glucose 40% Gel) 15-30 GRAMS 15 GRAMS... UD PRN PO 12/06/16 13:30 01/05/17 13:29 Glucose (Glucose Chew Tab) 4-8 Tablets 4 Tabl... UD PRN PO 12/06/16 13:30 01/05/17 13:29 Dextrose (Dextrose 50% 50ML Syringe) 25-50ML OF 50% DW IV FOR... UD PRN IV 12/06/16 13:30 01/05/17 13:29 Glucagon (Glucagon Inj) 1 mg UD PRN SQ 12/06/16 13:30 01/05/17 13:29 Piperacillin Sod/ Tazobactam Sod (Consult) 1 ea UD PRN N/A 12/06/16 13:30 12/17/16 22:00 Piperacillin Sod/ Tazobactam Sod 3.375 gm/Dextrose 115 ml @ 28.75 mls/ hr Q8H IV 12/06/16 16:00 12/17/16 23:59 12/15/16 23:48 28.75 MLS/HR Heparin Sodium (Porcine) (Heparin 10 Unit/ ml 5 ml Flush) 5 ml PRN PRN FLUSH 12/06/16 22:15 01/05/17 22:14 12/08/16 04:59 5 ML Heparin Sodium (Porcine) (Heparin Sq 5000 Unit/0.5ml) 5,000 unit Q8 SQ 12/07/16 06:00 01/06/17 05:59 Future Hold 12/15/16 13:08 5,000 UNIT Daptomycin 500 mg/ Sodium Chloride 60 ml @ 100 mls/hr Q48H IV 12/10/16 20:00 01/21/17 19:59 12/14/16 20:09 100 MLS/HR Furosemide (Lasix Tab) 40 mg QAM PO 12/13/16 09:00 01/12/17 08:59 12/15/16 09:08 40 MG Hydromorphone HCl (Dilaudid Inj) 0.5 mg Q3H PRN IV 12/16/16 00:30 12/30/16 00:29 Tramadol HCl (Ultram Tab) 25 mg Q6H PRN PO 12/16/16 00:30 01/15/17 00:29 Physical Exam Vital Signs: Vital Signs Past 12 Hours Date Time Temp Pulse Resp B/P (MAP) Pulse Ox O2 Delivery O2 Flow Rate FiO2 12/16/16 00:00 36.6 78 18 121/62 (81) 94 Room Air 12/15/16 20:24 93 Room Air 2.0 12/15/16 19:45 36.4 78 19 116/66 (83) 93 Room Air 12/15/16 16:10 Room Air 12/15/16 15:43 36.3 83 18 121/60 (80) 97 Room Air Physical Exam: General Appearance: no apparent distress ENT: hearing grossly normal Neck: supple Respiratory/Chest: no accessory muscle use Gastrointestinal: Abdomen: normal abdomen Skin: normal color Assessment & Plan Assessment & Plan A/P 86 yo male with retained matos. Matos balloon noted in mid pendulous urethra. Coaxed out, partially inflated. Mild to mod urethral bleeding due to matos trauma - I expect this to continue a few hours then shelby. If able to void leave matos out due to history of self-induced trauma. If unable to void or if needed for urethral tamponnade replace matos. Please recall PRN
[2016-12-16 01:22] LABS: ANISOCYTOSIS PRESENT; BASO % 0.5 %; BASO ABS # 0.02 K/uL (0-0.2); COMPLETE YES; EOS % 2.6 %; HEMATOCRIT 29.6 % (42-52); IG% 0.2 %; LYMPH ABS # 0.46 K/uL (1.2-3.4); MEAN CELL VOLUME 91.4 fL (80-100); MEAN CORPUSCULAR HEMOGLOBIN 27.5 pg (25-34); MONO % 13.7 %; RED BLOOD COUNT 3.24 M/uL (4.7-6.1); WHITE BLOOD COUNT 4.17 K/uL (4.8-10.8)
--- NOTE | 2016-12-16 04:18 | Progress Note ---
Internal Med Progress Note Date of Service: Dec 16, 2016. Provider Documentation: Made aware by RN around 12AM for traumatic hematuria. As per RN, patient yanked his Lynn catheter following nightmare during sleep. RN unable to remove Lynn catheter from urethral meatus despite manipulation. AP Traumatic hematuria Hold ASA for now. Follow [facility]&H Urology consult (case dw Dr. Dutton) Will relay to a.m. provider. Vital Signs: Date Time Temp Pulse Resp B/P (MAP) Pulse Ox O2 Delivery O2 Flow Rate FiO2 12/16/16 04:17 36.7 90 18 118/62 (80) 95 Room Air 12/16/16 04:00 Room Air 12/16/16 00:00 36.6 78 18 121/62 (81) 94 Room Air 12/15/16 23:59 Room Air 12/15/16 20:24 93 Room Air 2.0 12/15/16 19:45 36.4 78 19 116/66 (83) 93 Room Air 12/15/16 16:10 Room Air 12/15/16 15:43 36.3 83 18 121/60 (80) 97 Room Air 12/15/16 11:38 36.2 89 116/71 (86) 95 Room Air 12/15/16 11:37 36.2 89 12/15/16 11:20 Room Air 12/15/16 11:14 36.3 73 18 114/59 (77) 92 Room Air 12/15/16 09:46 95 Room Air 12/15/16 07:30 Room Air 12/15/16 07:16 36.3 78 19 114/62 (79) 98 Room Air Lab Results: Results Past 24 Hours Test 12/15/16 07:53 12/15/16 12:18 12/15/16 12:19 12/15/16 16:05 Range/Units Bedside Glucose 113 218 203 180 70-99 mg/dl Test 12/15/16 17:38 12/15/16 20:07 12/16/16 00:38 Range/Units Sodium Level 136 136-145 mmol/L Potassium Level 3.3 3.5-5.1 mmol/L Chloride Level 97 98-107 mmol/L Carbon Dioxide Level 29 21-32 mmol/L Anion Gap 10.0 3-11 mmol/L Blood Urea Nitrogen 38 7-18 mg/dl Creatinine 1.80 0.60-1.40 mg/dl Est Creatinine Clear Calc Drug Dose 29.3 ml/min Estimated GFR () 38.1 Estimated GFR (Non- 32.9 BUN/Creatinine Ratio 21.2 10-20 Random Glucose 158 70-99 mg/dl Calcium Level 8.9 8.5-10.1 mg/dl Bedside Glucose 194 70-99 mg/dl White Blood Count 4.17 4.8-10.8 K/uL Red Blood Count 3.24 4.7-6.1 M/uL Hemoglobin 8.9 14.0-18.0 g/dL Hematocrit 29.6 42-52 % Mean Corpuscular Volume 91.4 80-100 fL Mean Corpuscular Hemoglobin 27.5 25-34 pg Mean Corpuscular Hemoglobin Concent 30.1 32-36 g/dl Platelet Count 134 130-400 K/uL Mean Platelet Volume 10.4 7.4-10.4 fL Neutrophils (%) (Auto) 72.0 % Lymphocytes (%) (Auto) 11.0 % Monocytes (%) (Auto) 13.7 % Eosinophils (%) (Auto) 2.6 % Basophils (%) (Auto) 0.5 % Neutrophils # (Auto) 3.00 1.4-6.5 K/uL Lymphocytes # (Auto) 0.46 1.2-3.4 K/uL Monocytes # (Auto) 0.57 0.11-0.59 K/uL Eosinophils # (Auto) 0.11 0-0.5 K/uL Basophils # (Auto) 0.02 0-0.2 K/uL RDW Standard Deviation 71.0 36.4-46.3 fL RDW Coefficient of Variation 21.3 11.5-14.5 % Immature Granulocyte % (Auto) 0.2 % Immature Granulocyte # (Auto) 0.01 0.00-0.02 K/uL Nucleated RBC Absolute Count (auto) 0.03 0-0 K/uL Nucleated Red Blood Cells % 0.7 % Anisocytosis PRESENT
[2016-12-16] MEDS: INSULIN ASPART 100 UNITS/ML 3 ML PEN SC SCH ×4 (07:00→20:36)
[2016-12-16] MEDS: FERROUS SULFATE 325 MG TAB PO SCH ×3 (07:30→16:01)
[2016-12-16] MEDS: PIPERACILL/TAZOBAC IV 3.375 GM in DEXTROSE 5% 100ML IV SCH ×2 (08:00→16:01)
--- NOTE | 2016-12-16 08:05 | History & Physical Bridge Note ---
H&P Re-Evaluation Bridge Note: I have examined the patient, reviewed the History & Physical and in the interval since the performance of the History & Physical I have noted the following changes of clinical significance: No changes noted family at bedside all questions answered pt marked yesterday
[2016-12-16] MEDS ORDERED: ONDANSETRON INJ 2 MG/ML 2 ML VIAL IV PRN (08:15)
[2016-12-16] MEDS ORDERED: EpHEDrine SULFATE INJ 50 MG/ML AMP IV PRN (08:15)
[2016-12-16] MEDS ORDERED: ATROPINE SULFATE 0.1 MG/ML 5ML SYR IV PRN (08:15)
[2016-12-16] MEDS ORDERED: PHENYLEPHRINE 100MCG/ML 5ML SYR IV PRN (08:15)
[2016-12-16] MEDS ORDERED: HYDROmorphone INJ 1 MG/ML SYR IV PRN (08:15)
[2016-12-16] MEDS ORDERED: SCOPOLAMINE 1.5 MG TDSY TD ONE (08:16)
[2016-12-16 08:27] LABS: HEMATOCRIT 27.5 % (42-52)
[2016-12-16] MEDS ORDERED: NURSING VERBAL MED ORDER ONE (08:30)
[2016-12-16] MEDS: BOOST BREEZE NUTRITION DRINK 1 BOX PO SCH (09:00)
[2016-12-16] MEDS: ASCORBIC ACID 500 MG TAB PO SCH (09:00)
--- NOTE | 2016-12-16 09:23 | [facility] Operative Report ---
Operative Report Operative Date Dec 16, 2016. Pre-Operative Diagnosis Left foot/toes gangrene Post-Operative Diagnosis Left foot/toes gangrene Procedure(s) Performed Left Foot Metatarsal Amputation 5th, 4th, and 3rd Toe Surgeon Dr. Ahumada Assistant [employer] Surgeon(s) Adenike Forrester PA-C Estimated Blood Loss 20 ml Findings as preop Specimens A: Left foot 5th, 4th, and 3rd toe Drains 1/4 inch packing wound I attest to the content of the Intraoperative Record and any orders documented therein. Any exceptions are noted below.
[2016-12-16] MEDS ORDERED: FUROSEMIDE 20 MG TAB PO PRN (09:30)
--- NOTE | 2016-12-16 09:46 | OPERATIVE REPORT ---
DATE OF OPERATION: 12/16/2016 SURGEON: Baltazar Ahumada MD LEGAL OFFICE ADMINISTRATOR: Adenike Forrester PA-C PREOPERATIVE DIAGNOSIS: Osteomyelitis involving the third and fourth toe with gangrene of the fifth toe. POSTOPERATIVE DIAGNOSIS: Osteomyelitis involving the third and fourth toe with gangrene of the fifth toe. PROCEDURE: Transmetatarsal amputation open of the third, fourth and fifth toe. DESCRIPTION OF PROCEDURE: The patient was brought into the operating room theater under general anesthesia and tried LMA, but this was not sufficient enough for him; therefore, we intubated. The left foot was prepped with Betadine solution and properly draped. The patient had systemic antibiotics. 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 We made an elliptical incision trying to save as much of the plantar surface as possible tissue and actually we left the ulceration on the skin down intact to the point that we used this tissue to approximate at the end of the procedure and have to close the wound as much as possible. The incision was made and taken around at basically the head of the fifth metatarsal all the way circumferentially going through the old incision that the patient had a previous resection of this third toe. Then once we had went on, then went to the metatarsal head, started with the fifth toe and used a rongeur to resect this area and attention also with scissors and the tendinous attachments to the toes. With continued all the way up to the third toe where we were able then to free up any very brittle tissue on the metatarsal heads. We took it back to the point that the bone itself was quite crispy at the end of the 3 resections. We save as stated the most of the plantar surface and freed it up using scissors. Actually, the patient has fairly good bleeding in these areas, therefore I minimized and we avoided the Bovie at pretty much the whole procedure. Once I was free with this resection and then we elected to just close it over a quarter-inch plain packing which we placed in the wound and used interrupted 3-0 and 2-0 nylon to approximate the skin sufficient enough to hold the packing intact. 4 x 4 and a 2 inch Kerlix and 2-inch Jigar bandage were used for dressing. The procedure was tolerated well by the patient. Estimated blood loss was approximately 20 mL. The patient was taken to recovery room in good condition. I attest to the content of the Intraoperative Record and any orders documented therein. Any exception s are noted below.
--- NOTE | 2016-12-16 10:03 | Anesthesiology Progress Note ---
Anesthesia Post Op Note Date & Time Dec 16, 2016 at 10:03 Vital Signs Pain Intensity: 0 Vital Signs Past 12 Hours Date Time Temp Pulse Resp B/P (MAP) Pulse Ox O2 Delivery O2 Flow Rate FiO2 12/16/16 09:29 36.2 88 28 129/80 88 Oxymask 10 12/16/16 04:17 36.7 90 18 118/62 (80) 95 Room Air 12/16/16 04:00 Room Air 12/16/16 00:00 36.6 78 18 121/62 (81) 94 Room Air 12/15/16 23:59 Room Air Notes Mental Status: alert / awake / arousable, participated in evaluation Pt Amnestic to Procedure: Yes Nausea / Vomiting: adequately controlled Pain: adequately controlled Airway Patency, RR, SpO2: stable & adequate BP & HR: stable & adequate Hydration State: stable & adequate Anesthetic Complications: no major complications apparent
[2016-12-16 11:08] LABS: INR 1.2 (0.9-1.1); PROTHROMBIN TIME (PATIENT) 13.3 SECONDS (9.0-12.0)
[2016-12-16] MEDS: CHOLECALCIFEROL 1000 INTER.UNIT TAB PO SCH (12:25)
[2016-12-16] MEDS: POTASSIUM CHLORIDE 20 MEQ TABCR PO SCH (12:26)
[2016-12-16] MEDS: CEROVITE ADV FORMULA TAB PO SCH (12:26)
[2016-12-16] MEDS: METOPROLOL TARTRATE 25 MG TAB PO SCH ×2 (12:26→20:35)
[2016-12-16] MEDS: FUROSEMIDE 40 MG TAB PO SCH ×2 (12:26→16:04)
--- NOTE | 2016-12-16 14:51 | Cardiology Follow-Up ---
Subjective General Date of Service: Dec 16, 2016. Chief Complaint: Primary service unable to remove catheter Pt evaluation today including: conversation w/ patient, conversation w/ family , physical exam, chart review, lab review, review of studies, review of inpatient medication list History of Present Illness The patient is a 86 year old male seen in follow-up. Status post transmetatarsal amputation of the third, fourth, and fifth toes. Patient tolerated procedure. Denies chest pain or shortness of breath. Daughter is present at bedside. Lower extremity edema has improved. Patient pulled out his Lynn catheter last night. He has little recollection of the events. Allergies Coded Allergies: HERMAN Inhibitors (Verified Allergy, Intermediate, UNKNOWN, 11/05/16) Lisinopril (Verified Adverse Reaction, Unknown, COUGHING, 11/05/16) Social History Smoking Status: Former Smoker Hx Tobacco Use In Past Year?: No (gera 1969) Hx Alcohol Use - Type And Amou: No Hx Substance Use - Type And Am: No Problem List Medical Problems: (1) Acute on chronic renal failure Status: Acute (2) Anemia Status: Acute (3) Cellulitis of left leg Status: Acute (4) CHF (congestive heart failure) Status: Acute (5) Hypoxia Status: Acute (6) Left-sided epistaxis Status: Acute (7) Pneumonia Status: Acute (8) Sepsis Status: Acute (9) Urinary retention Status: Acute Review of Systems Respiratory: No cough, No sputum, No wheezing, No shortness of breath, No dyspnea on exertion, No dyspnea at rest, No hemoptysis Cardiac: + edema, No chest pain, No orthopnea, No PND, No claudication, No palpitations Physical Exam Vital Signs Last Vital Signs Documentation Date Time Temp Pulse Resp B/P (MAP) Pulse Ox O2 Delivery O2 Flow Rate FiO2 12/16/16 14:09 36.3 89 17 109/69 (82) 98 Nasal Cannula 2.0 Physical Exam Constitutional: Level of Distress: chronically ill Head: normocephalic ENMT: normal ENT inspection Lungs: Auscultation: no wheezing, decreased breath sounds, rales/crackles on the left Cardiovascular: Heart Auscultation: normal S1, normal S2, I/ SCOTTY, irregular rate rhythm Peripheral Pulses: Radial Pulse: normal on the right Abdomen: Inspection & Palpation: soft, non-distended, no tenderness, guarding & rebound Extremities: no cyanosis, edema (1-2+ B/L LE pretibial edema), ulcers (LLE), gangrene (Left 4th toe) Neurologic: Cranial Nerves: grossly intact Assessment and Plan Assessment and Plan IMPRESSION: 1. Acute decompensated systolic heart failure with large pleural effusions s/p bilateral thoracentesis (12/08 and 12/09). -Volume status improved with additional dose of intravenous Lasix given yesterday -Mild hypokalemia noted 2. Cardiorenal syndrome - creatinine stable 3. Chronic rate controlled atrial fibrillation. 4. Peripheral vascular disease and left lower extremity osteomyelitis / gangrene -Status post transmetatarsal amputation, open, of the third, fourth, and fifth toes 12/16/16. 5. Aortic valve disease with history of bioprosthetic aortic valve replacement in 2007. 6. 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 7. Moderate mitral insufficiency. 8. Diabetes type 2. 9. Epistaxis PLAN AND RECOMMENDATIONS: Continue Lasix 40 mg twice daily. Additional 20 mEq of potassium chloride ordered today. Repeat basic metabolic panel in the a.m. Follow fluid balance, GFR, electrolytes, and daily weight. Continue beta norma and aspirin as previously ordered. Antibiotics per ID. Laboratory Results Last 24 Hours Test 12/15/16 16:05 12/15/16 17:38 12/15/16 20:07 12/16/16 00:38 Bedside Glucose 180 mg/dl 194 mg/dl Sodium Level 136 mmol/L Potassium Level 3.3 mmol/L Chloride Level 97 mmol/L Carbon Dioxide Level 29 mmol/L Anion Gap 10.0 mmol/L Blood Urea Nitrogen 38 mg/dl Creatinine 1.80 mg/dl Est Creatinine Clear Calc Drug Dose 29.3 ml/min Estimated GFR () 38.1 Estimated GFR (Non- 32.9 BUN/Creatinine Ratio 21.2 Random Glucose 158 mg/dl Calcium Level 8.9 mg/dl White Blood Count 4.17 K/uL Red Blood Count 3.24 M/uL Hemoglobin 8.9 g/dL Hematocrit 29.6 % Mean Corpuscular Volume 91.4 fL Mean Corpuscular Hemoglobin 27.5 pg Mean Corpuscular Hemoglobin Concent 30.1 g/dl Platelet Count 134 K/uL Mean Platelet Volume 10.4 fL Neutrophils (%) (Auto) 72.0 % Lymphocytes (%) (Auto) 11.0 % Monocytes (%) (Auto) 13.7 % Eosinophils (%) (Auto) 2.6 % Basophils (%) (Auto) 0.5 % Neutrophils # (Auto) 3.00 K/uL Lymphocytes # (Auto) 0.46 K/uL Monocytes # (Auto) 0.57 K/uL Eosinophils # (Auto) 0.11 K/uL Basophils # (Auto) 0.02 K/uL RDW Standard Deviation 71.0 fL RDW Coefficient of Variation 21.3 % Immature Granulocyte % (Auto) 0.2 % Immature Granulocyte # (Auto) 0.01 K/uL Nucleated RBC Absolute Count (auto) 0.03 K/uL Nucleated Red Blood Cells % 0.7 % Anisocytosis PRESENT Test 12/16/16 07:14 12/16/16 08:05 12/16/16 09:43 12/16/16 10:47 Bedside Glucose 129 mg/dl 118 mg/dl Hemoglobin 8.6 g/dL Hematocrit 27.5 % Prothrombin Time 13.3 SECONDS Prothromb Time International Ratio 1.2
[2016-12-16] MEDS ORDERED: POTASSIUM CHLORIDE 20 MEQ TABCR PO ONE (15:30)
--- NOTE | 2016-12-16 18:15 | Infectious Disease Progress Nt ---
Progress Note Date of Service Dec 16, 2016. Subjective Pt evaluation today including: conversation w/ patient, physical exam, chart review, lab review, review of studies, conversation w/ solutions sales consultant, review of inpatient medication list events reviewed. 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 Had episode of hematuria after pulling out Lynn last night. Denies any new complaints. Denies shortness of breath or chest pain. Remains afebrile. All Other Systems: Reviewed and Negative Medications Current Inpatient Medications Medications (Trade) Dose Ordered Sig/Rosemarie Route Start Time Stop Time Status Last Admin Dose Admin Acetaminophen (Tylenol Tab) 650 mg Q4H PRN PO 12/06/16 12:45 01/05/17 12:44 Ondansetron HCl (Zofran Inj) 4 mg Q6H PRN IV 12/06/16 12:45 01/05/17 12:44 Enteral Nutritional Formula (Boost Breeze Nutritional Drink) 1 box DAILY PO 12/07/16 09:00 01/06/17 08:59 12/15/16 09:13 1 BOX Aspirin (Ecotrin Tab) 81 mg QAM PO 12/07/16 09:00 01/06/17 08:59 Future Hold 12/15/16 09:06 81 MG Folic Acid (Folvite Tab) 1 mg QAM PO 12/07/16 09:00 01/06/17 08:59 12/16/16 12:26 1 MG Insulin Glargine (Lantus Solostar Pen) 10 units HS SC 12/06/16 21:00 01/05/17 20:59 12/15/16 20:50 10 UNITS Metoprolol Tartrate (Lopressor Tab) 25 mg BID PO 12/06/16 21:00 01/05/17 20:59 12/16/16 12:26 25 MG Multivitamins/ Minerals (Multivitamin W/ Minerals Tab) 1 tab QAM PO 12/07/16 09:00 01/06/17 08:59 12/16/16 12:26 1 TAB Potassium Chloride (Klor-Con Tab) 20 meq DAILY PO 12/07/16 09:00 01/06/17 08:59 12/16/16 12:26 20 MEQ Ascorbic Acid (Vitamin C Tab) 500 mg DAILY PO 12/07/16 09:00 01/06/17 08:59 12/16/16 09:00 500 MG Cholecalciferol (Vitamin D Tab) 2,000 inter.unit QAM PO 12/07/16 09:00 01/06/17 08:59 12/16/16 12:25 2,000 INTER.UNIT Ferrous Sulfate (Feosol Tab) 325 mg TIDM PO 12/06/16 16:45 01/05/17 16:44 12/16/16 16:01 325 MG Insulin Aspart (novoLOG ASPART) SLIDING SCALE If C... ACHS SC 12/06/16 16:15 01/05/17 16:14 12/16/16 16:51 5 UNITS Glucose (Glucose 40% Gel) 15-30 GRAMS 15 GRAMS... UD PRN PO 12/06/16 13:30 01/05/17 13:29 Glucose (Glucose Chew Tab) 4-8 Tablets 4 Tabl... UD PRN PO 12/06/16 13:30 01/05/17 13:29 Dextrose (Dextrose 50% 50ML Syringe) 25-50ML OF 50% DW IV FOR... UD PRN IV 12/06/16 13:30 01/05/17 13:29 Glucagon (Glucagon Inj) 1 mg UD PRN SQ 12/06/16 13:30 01/05/17 13:29 Piperacillin Sod/ Tazobactam Sod (Consult) 1 ea UD PRN N/A 12/06/16 13:30 12/17/16 22:00 Piperacillin Sod/ Tazobactam Sod 3.375 gm/Dextrose 115 ml @ 28.75 mls/ hr Q8H IV 12/06/16 16:00 12/23/16 15:59 12/16/16 16:01 28.75 MLS/HR Heparin Sodium (Porcine) (Heparin 10 Unit/ ml 5 ml Flush) 5 ml PRN PRN FLUSH 12/06/16 22:15 01/05/17 22:14 12/08/16 04:59 5 ML Daptomycin 500 mg/ Sodium Chloride 60 ml @ 100 mls/hr Q48H IV 12/10/16 20:00 01/21/17 19:59 12/14/16 20:09 100 MLS/HR Hydromorphone HCl (Dilaudid Inj) 0.5 mg Q3H PRN IV 12/16/16 00:30 12/30/16 00:29 Tramadol HCl (Ultram Tab) 25 mg Q6H PRN PO 12/16/16 00:30 01/15/17 00:29 Heparin Sodium (Porcine) (Heparin Sq 5000 Unit/0.5ml) 5,000 unit Q12 SQ 12/16/16 21:00 01/15/17 20:59 Furosemide (Lasix Tab) 40 mg BID17 PO 12/16/16 17:00 01/15/17 16:59 12/16/16 16:04 40 MG Objective Vital Signs Date Time Temp Pulse Resp B/P (MAP) Pulse Ox O2 Delivery O2 Flow Rate FiO2 12/16/16 16:28 Nasal Cannula 2.0 12/16/16 15:39 36.5 82 21 111/64 (80) 100 Nasal Cannula 1.5 12/16/16 15:06 98 Nasal Cannula 2.0 12/16/16 14:09 36.3 89 17 109/69 (82) 98 Nasal Cannula 2.0 12/16/16 13:15 35.6 83 18 118/79 (92) 98 12/16/16 12:09 36.4 87 13 124/78 (93) 96 Nasal Cannula 2.0 12/16/16 11:10 36.4 87 13 114/67 (83) 96 Nasal Cannula 2.0 12/16/16 11:10 36.4 87 13 114/67 (83) 96 Nasal Cannula 12/16/16 10:20 Nasal Cannula 2.0 12/16/16 10:20 36.5 96 16 125/73 (90) 99 Nasal Cannula 2.0 12/16/16 10:05 36.2 89 16 139/82 99 Nasal Cannula 2 12/16/16 09:55 90 17 136/75 99 Nasal Cannula 4 12/16/16 09:45 91 20 145/75 100 Oxymask 10 12/16/16 09:35 89 26 142/76 100 Oxymask 10 12/16/16 09:29 36.2 88 28 129/80 88 Oxymask 10 12/16/16 04:17 36.7 90 18 118/62 (80) 95 Room Air 12/16/16 04:00 Room Air 12/16/16 00:00 36.6 78 18 121/62 (81) 94 Room Air 12/15/16 23:59 Room Air 12/15/16 20:24 93 Room Air 2.0 12/15/16 19:45 36.4 78 19 116/66 (83) 93 Room Air Physical Exam General Appearance: no apparent distress, + pertinent finding ( Chronically ill-appearing) Eyes: normal inspection, EOMI, sclerae normal ENT: normal ENT inspection, pharynx normal Neck: supple, no adenopathy, trachea midline Respiratory/Chest: chest non-tender, lungs clear, normal breath sounds, no respiratory distress Cardiovascular: no gallop, no murmur, + irregularly irregular Abdomen: normal bowel sounds, non tender, soft, no organomegaly Extremities: non-tender, + slow capillary refill Neurologic/Psychiatric: alert, oriented x 3 Skin: normal color, no rash, + pertinent finding ( surgical dressing intact right foot) Laboratory Results Last 24 Hours Test 12/15/16 20:07 12/16/16 00:38 12/16/16 07:14 12/16/16 08:05 Bedside Glucose 194 mg/dl 129 mg/dl White Blood Count 4.17 K/uL Red Blood Count 3.24 M/uL Hemoglobin 8.9 g/dL 8.6 g/dL Hematocrit 29.6 % 27.5 % Mean Corpuscular Volume 91.4 fL Mean Corpuscular Hemoglobin 27.5 pg Mean Corpuscular Hemoglobin Concent 30.1 g/dl Platelet Count 134 K/uL Mean Platelet Volume 10.4 fL Neutrophils (%) (Auto) 72.0 % Lymphocytes (%) (Auto) 11.0 % Monocytes (%) (Auto) 13.7 % Eosinophils (%) (Auto) 2.6 % Basophils (%) (Auto) 0.5 % Neutrophils # (Auto) 3.00 K/uL Lymphocytes # (Auto) 0.46 K/uL Monocytes # (Auto) 0.57 K/uL Eosinophils # (Auto) 0.11 K/uL Basophils # (Auto) 0.02 K/uL RDW Standard Deviation 71.0 fL RDW Coefficient of Variation 21.3 % Immature Granulocyte % (Auto) 0.2 % Immature Granulocyte # (Auto) 0.01 K/uL Nucleated RBC Absolute Count (auto) 0.03 K/uL Nucleated Red Blood Cells % 0.7 % Anisocytosis PRESENT Test 12/16/16 09:43 12/16/16 10:47 12/16/16 16:18 Bedside Glucose 118 mg/dl 206 mg/dl Prothrombin Time 13.3 SECONDS Prothromb Time International Ratio 1.2 Assessment and Plan 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 Patient will be continued on daptomycin and Zosyn pending further culture results and clinical response.
--- NOTE | 2016-12-16 19:49 | Progress Note ---
Medicine Progress Note Date & Time of Visit: Dec 16, 2016 at 17:22. Subjective Pt was seen and examined Lying in bed with no distress had toes amputation today he said that he does not have any pain he had hematuria because he was agitated last night and pulled out his matos cath denies any chest pain, palpitation, dizziness and sob Objective Last 8 Hrs Date Time Temp Pulse Resp B/P (MAP) Pulse Ox O2 Delivery O2 Flow Rate FiO2 12/16/16 16:28 Nasal Cannula 2.0 12/16/16 15:39 36.5 82 21 111/64 (80) 100 Nasal Cannula 1.5 12/16/16 15:06 98 Nasal Cannula 2.0 12/16/16 14:09 36.3 89 17 109/69 (82) 98 Nasal Cannula 2.0 12/16/16 13:15 35.6 83 18 118/79 (92) 98 12/16/16 12:09 36.4 87 13 124/78 (93) 96 Nasal Cannula 2.0 Physical Exam: General- No acute distress Head- atraumatic Eyes- PERRL, EOMI ENT- oropharynx clear Neck- no JVD Lungs- No wheezing Heart- regular rhythm Abdomen- normal bowel sounds, soft Extremities +edema, no calf tenderness, amputation of 3rd and 5th toes in the left foot Neuro- alert, oriented, PERRL, EOMI Skin- warm & dry Laboratory Results: Last 24 Hours Test 12/15/16 20:07 12/16/16 00:38 12/16/16 07:14 12/16/16 08:05 Bedside Glucose 194 mg/dl 129 mg/dl White Blood Count 4.17 K/uL Red Blood Count 3.24 M/uL Hemoglobin 8.9 g/dL 8.6 g/dL Hematocrit 29.6 % 27.5 % Mean Corpuscular Volume 91.4 fL Mean Corpuscular Hemoglobin 27.5 pg Mean Corpuscular Hemoglobin Concent 30.1 g/dl Platelet Count 134 K/uL Mean Platelet Volume 10.4 fL Neutrophils (%) (Auto) 72.0 % Lymphocytes (%) (Auto) 11.0 % Monocytes (%) (Auto) 13.7 % Eosinophils (%) (Auto) 2.6 % Basophils (%) (Auto) 0.5 % Neutrophils # (Auto) 3.00 K/uL Lymphocytes # (Auto) 0.46 K/uL Monocytes # (Auto) 0.57 K/uL Eosinophils # (Auto) 0.11 K/uL Basophils # (Auto) 0.02 K/uL RDW Standard Deviation 71.0 fL RDW Coefficient of Variation 21.3 % Immature Granulocyte % (Auto) 0.2 % Immature Granulocyte # (Auto) 0.01 K/uL Nucleated RBC Absolute Count (auto) 0.03 K/uL Nucleated Red Blood Cells % 0.7 % Anisocytosis PRESENT Test 12/16/16 09:43 12/16/16 10:47 12/16/16 16:18 Bedside Glucose 118 mg/dl 206 mg/dl Prothrombin Time 13.3 SECONDS Prothromb Time International Ratio 1.2 Assessment & Plan ACUTE ON CHRONIC SYSTOLIC CHF BL PLEURAL EFFUSIONS - Present with worsening shortness of breath and lower extremity edema x 2 weeks despite outpatient titration of diuretics - CXR s on admission showed BL pleural effusions - Chest US showed large effusions that were marked for possible thoracentesis - Pulmonary on board - s/p right sided 12/08 thoracocentesis of 1400cc pleural fluid - s/p left sided 12/09 thoracentesis of 1500cc pleural fluid - On lasix 40 mg po BID - Continue fluid restriction - Last echo on 09/2016 showed EF 35-40% - cardiology on board -Continue beta norma and low-dose aspirin. - Symptoms of orthopnea reported last night - Lasix IV 60mgx1 order by cardiology - Continue Lasix 40mg BID - clinically stable Cardiorenal syndrome - creatinine stable Chronic rate controlled atrial fibrillation. 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 Ahumada - Continue IV Zosyn and daptomycin - wound care On board - Plan for left toes (5th and possible 3th toes) amputation tomorrow - NPO after midnight 12/16 S/p toes (3rd and 5rd) amputation of left foot by Dr. Ahumada No post op complication monitor h/h continue pain control continue IV abx ID on board Lower extremity CT scan done showed: 1. Findings consistent with osteomyelitis of the proximal phalanx of the third toe with concern for septic arthritis of the third metatarsophalangeal joint. This be better demonstrated on MR. 2. Suspicion for septic arthritis/osteomyelitis of the head of the second metatarsal and second metatarsophalangeal joint. -ID recommended starting daptomycin on 12/10/16 in addition to patient already on Zosyn IV for osteomyelitis -Surgery on board -Schedule for toe amputation on 12/[address] Ahumada for toe amputations on 12/16/16 Hematuria due to trauma from matos Urology consulted recommended to leave forley out if able to void due to recent self induced mtaos trauma or If unable to void or if needed for urethral tamponnade replace matos. continue monitor removed matos if pt becomes agitated DM recent Hba1c 6.5 on 09/2016 Lantus + SSI ANEMIA chronic Hbg stable Stg II Sacral Decub-POA, Optifoam applied, EHOB mattress. Continue daily wound care Wound care on board Abdominal bruising -From subQ heparin -Ultrasound showed soft tissue contusion of lower abdominal wall and a 1.6 x 1.2 x 0.5 cm slightly complex subcutaneous fluid collection likely small hematoma. - Stable DVT Px will hod morning dose of heparin subq for the surgery CODE STATUS/disposition - Patient is DNR - cardiology service to arrange outpatient follow up within 1 week of discharge - IV daptomycin/ Iv Zosyn, this will need to be arranged as outpatient Consultants: Cardiology Surgery Current Inpatient Medications: Current Inpatient Medications Medications (Trade) Dose Ordered Sig/Rosemarie Route Start Time Stop Time Status Last Admin Dose Admin Acetaminophen (Tylenol Tab) 650 mg Q4H PRN PO 12/06/16 12:45 01/05/17 12:44 Ondansetron HCl (Zofran Inj) 4 mg Q6H PRN IV 12/06/16 12:45 01/05/17 12:44 Enteral Nutritional Formula (Boost Breeze Nutritional Drink) 1 box DAILY PO 12/07/16 09:00 01/06/17 08:59 12/15/16 09:13 1 BOX Aspirin (Ecotrin Tab) 81 mg QAM PO 12/07/16 09:00 01/06/17 08:59 Future Hold 12/15/16 09:06 81 MG Folic Acid (Folvite Tab) 1 mg QAM PO 12/07/16 09:00 01/06/17 08:59 12/16/16 12:26 1 MG Insulin Glargine (Lantus Solostar Pen) 10 units HS SC 12/06/16 21:00 01/05/17 20:59 12/15/16 20:50 10 UNITS Metoprolol Tartrate (Lopressor Tab) 25 mg BID PO 12/06/16 21:00 01/05/17 20:59 12/16/16 12:26 25 MG Multivitamins/ Minerals (Multivitamin W/ Minerals Tab) 1 tab QAM PO 12/07/16 09:00 01/06/17 08:59 12/16/16 12:26 1 TAB Potassium Chloride (Klor-Con Tab) 20 meq DAILY PO 12/07/16 09:00 01/06/17 08:59 12/16/16 12:26 20 MEQ Ascorbic Acid (Vitamin C Tab) 500 mg DAILY PO 12/07/16 09:00 01/06/17 08:59 12/16/16 09:00 500 MG Cholecalciferol (Vitamin D Tab) 2,000 inter.unit QAM PO 12/07/16 09:00 01/06/17 08:59 12/16/16 12:25 2,000 INTER.UNIT Ferrous Sulfate (Feosol Tab) 325 mg TIDM PO 12/06/16 16:45 01/05/17 16:44 12/16/16 16:01 325 MG Insulin Aspart (novoLOG ASPART) SLIDING SCALE If C... ACHS SC 12/06/16 16:15 01/05/17 16:14 12/16/16 16:51 5 UNITS Glucose (Glucose 40% Gel) 15-30 GRAMS 15 GRAMS... UD PRN PO 12/06/16 13:30 01/05/17 13:29 Glucose (Glucose Chew Tab) 4-8 Tablets 4 Tabl... UD PRN PO 12/06/16 13:30 01/05/17 13:29 Dextrose (Dextrose 50% 50ML Syringe) 25-50ML OF 50% DW IV FOR... UD PRN IV 12/06/16 13:30 01/05/17 13:29 Glucagon (Glucagon Inj) 1 mg UD PRN SQ 12/06/16 13:30 01/05/17 13:29 Piperacillin Sod/ Tazobactam Sod (Consult) 1 ea UD PRN N/A 12/06/16 13:30 12/17/16 22:00 Piperacillin Sod/ Tazobactam Sod 3.375 gm/Dextrose 115 ml @ 28.75 mls/ hr Q8H IV 12/06/16 16:00 12/23/16 15:59 12/16/16 16:01 28.75 MLS/HR Heparin Sodium (Porcine) (Heparin 10 Unit/ ml 5 ml Flush) 5 ml PRN PRN FLUSH 12/06/16 22:15 01/05/17 22:14 12/08/16 04:59 5 ML Daptomycin 500 mg/ Sodium Chloride 60 ml @ 100 mls/hr Q48H IV 12/10/16 20:00 01/21/17 19:59 12/14/16 20:09 100 MLS/HR Hydromorphone HCl (Dilaudid Inj) 0.5 mg Q3H PRN IV 12/16/16 00:30 12/30/16 00:29 Tramadol HCl (Ultram Tab) 25 mg Q6H PRN PO 12/16/16 00:30 01/15/17 00:29 Heparin Sodium (Porcine) (Heparin Sq 5000 Unit/0.5ml) 5,000 unit Q12 SQ 12/16/16 21:00 01/15/17 20:59 Furosemide (Lasix Tab) 40 mg BID17 PO 12/16/16 17:00 01/15/17 16:59 12/16/16 16:04 40 MG
[2016-12-16] MEDS: DAPTOmycin IV 500 MG in SODIUM CHLORIDE 0.9% 50ML 50 ML IV SCH (20:34)
[2016-12-16] MEDS: HEPARIN SOD 5000 UNIT/0.5 ML CARP SQ SCH (20:36)
[2016-12-16] MEDS: INSULIN GLARGINE SOLOSTAR 100 UNITS/ML 3 ML PEN SC SCH (20:36)
[2016-12-16] MEDS ORDERED: FUROSEMIDE 20 MG TAB PO SCH (21:00)
[2016-12-17] MEDS: PIPERACILL/TAZOBAC IV 3.375 GM in DEXTROSE 5% 100ML IV SCH ×3 (00:16→16:30)
[2016-12-17 04:00] VITALS: BP 114/54; PULSE 77; TEMP 36.5; O2SAT 97
[2016-12-17 04:51] LABS: HEMATOCRIT 27.7 % (42-52); MEAN CELL VOLUME 93.3 fL (80-100); MEAN CORPUSCULAR HEMOGLOBIN 29.3 pg (25-34); MEAN CORPUSCULAR HGB CONC 31.4 g/dl (32-36); PLATELET COUNT 122 K/uL (130-400); RED BLOOD COUNT 2.97 M/uL (4.7-6.1); WHITE BLOOD COUNT 4.51 K/uL (4.8-10.8)
[2016-12-17 05:10] LABS: BUN/CREATININE RATIO 22.6 (10-20); CALCIUM 8.6 mg/dl (8.5-10.1); CREATININE 1.7 mg/dl (0.60-1.40); POTASSIUM 3.8 mmol/L (3.5-5.1)
[2016-12-17] MEDS: INSULIN ASPART 100 UNITS/ML 3 ML PEN SC SCH ×4 (07:00→20:32)
[2016-12-17 07:49] VITALS: BP 96/66; PULSE 81; TEMP 36.5; O2SAT 100
[2016-12-17] MEDS: FERROUS SULFATE 325 MG TAB PO SCH ×3 (08:01→16:30)
[2016-12-17] MEDS: BOOST BREEZE NUTRITION DRINK 1 BOX PO SCH (08:01)
[2016-12-17] MEDS: POTASSIUM CHLORIDE 20 MEQ TABCR PO SCH (08:02)
[2016-12-17] MEDS: METOPROLOL TARTRATE 25 MG TAB PO SCH ×2 (08:02→20:31)
[2016-12-17] MEDS: FUROSEMIDE 40 MG TAB PO SCH (08:02)
[2016-12-17] MEDS: ASCORBIC ACID 500 MG TAB PO SCH (08:03)
[2016-12-17] MEDS: CHOLECALCIFEROL 1000 INTER.UNIT TAB PO SCH (08:03)
[2016-12-17] MEDS: CEROVITE ADV FORMULA TAB PO SCH (08:03)
[2016-12-17] MEDS: HEPARIN SOD 5000 UNIT/0.5 ML CARP SQ SCH ×2 (08:07→20:33)
--- NOTE | 2016-12-17 08:22 | Anesthesiology Progress Note ---
Anesthesia Post Op Note Date & Time Dec 17, 2016 at 08:22 Vital Signs Pain Intensity: 4.0 (4.04.0) Vital Signs Past 12 Hours Date Time Temp Pulse Resp B/P (MAP) Pulse Ox O2 Delivery O2 Flow Rate FiO2 12/17/16 07:49 36.5 81 22 96/66 (76) 100 Nasal Cannula 2.0 Humidified Oxygen 12/17/16 04:00 36.5 77 26 114/54 (74) 97 Nasal Cannula 2.0 12/17/16 04:00 Nasal Cannula 2.0 Humidified Oxygen 12/17/16 00:00 Nasal Cannula 2.0 Humidified Oxygen 12/16/16 23:45 36.5 71 20 113/80 (91) 100 Nasal Cannula 2.0 Humidified Oxygen Notes Mental Status: alert / awake / arousable, participated in evaluation Pt Amnestic to Procedure: Yes Nausea / Vomiting: adequately controlled Pain: adequately controlled Airway Patency, RR, SpO2: stable & adequate BP & HR: stable & adequate Hydration State: stable & adequate Anesthetic Complications: no major complications apparent
[2016-12-17 11:21] VITALS: BP 120/62; PULSE 89; TEMP 36.5; O2SAT 96
[2016-12-17 15:36] VITALS: BP 114/60; PULSE 96; TEMP 36.4; O2SAT 93
--- NOTE | 2016-12-17 15:44 | Cardiology Follow-Up ---
Subjective General Date of Service: Dec 17, 2016. Chief Complaint: Primary service unable to remove catheter Pt evaluation today including: conversation w/ patient, physical exam, chart review, lab review, review of studies, review of inpatient medication list History of Present Illness The patient is a 86 year old male seen in follow-up. Patient denies chest pain or shortness of breath. Lower extremity edema improved. Daughter voices concern regarding confusion and hallucination. Patient pulled out his Lynn the night before last. No orthopnea or PND. Allergies Coded Allergies: HERMAN Inhibitors (Verified Allergy, Intermediate, UNKNOWN, 11/05/16) Lisinopril (Verified Adverse Reaction, Unknown, COUGHING, 11/05/16) Social History Smoking Status: Former Smoker Hx Tobacco Use In Past Year?: No (egra 1970) Hx Alcohol Use - Type And Amou: No Hx Substance Use - Type And Am: No Problem List Medical Problems: (1) Acute on chronic renal failure Status: Acute (2) Anemia Status: Acute (3) Cellulitis of left leg Status: Acute (4) CHF (congestive heart failure) Status: Acute (5) Hypoxia Status: Acute (6) Left-sided epistaxis Status: Acute (7) Pneumonia Status: Acute (8) Sepsis Status: Acute (9) Urinary retention Status: Acute Review of Systems Respiratory: No cough, No wheezing, No shortness of breath, No dyspnea on exertion, No dyspnea at rest, No hemoptysis Cardiac: + edema, No chest pain, No orthopnea, No PND, No claudication, No palpitations Physical Exam Vital Signs Last Vital Signs Documentation Date Time Temp Pulse Resp B/P (MAP) Pulse Ox O2 Delivery O2 Flow Rate FiO2 12/17/16 15:36 36.4 96 20 114/60 (78) 93 Nasal Cannula 1.0 Physical Exam Constitutional: Level of Distress: chronically ill Head: normocephalic ENMT: normal ENT inspection Lungs: Auscultation: no wheezing, decreased breath sounds, rales/crackles on the left Cardiovascular: Heart Auscultation: normal S1, normal S2, I/ SCOTTY, irregular rate rhythm Peripheral Pulses: Radial Pulse: normal on the right Abdomen: Inspection & Palpation: soft, non-distended, no tenderness, guarding & rebound Extremities: no cyanosis, edema (1-2+ B/L LE pretibial edema), ulcers (LLE), gangrene (Left 4th toe) Neurologic: Cranial Nerves: grossly intact Assessment and Plan Assessment and Plan IMPRESSION: 1. Acute decompensated systolic heart failure with large pleural effusions s/p bilateral thoracentesis (12/08 and 12/09). -Volume status edema improved 2. Cardiorenal syndrome - creatinine stable 3. Chronic rate controlled atrial fibrillation. 4. Peripheral vascular disease and left lower extremity osteomyelitis / gangrene -Status post transmetatarsal amputation, open, of the third, fourth, and fifth toes 12/16/16. 5. Aortic valve disease with history of bioprosthetic aortic valve replacement in 2007. 6. 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 7. Moderate mitral insufficiency. 8. Diabetes type 2. PLAN AND RECOMMENDATIONS: Reduce Lasix to 40 mg once daily Repeat basic metabolic panel in the a.m. Follow fluid balance, GFR, electrolytes, and daily weight. Continue beta norma and aspirin as previously ordered. Antibiotics per ID. Laboratory Results Last 24 Hours Test 12/16/16 16:18 12/16/16 20:05 12/17/16 04:22 12/17/16 07:00 Bedside Glucose 206 mg/dl 272 mg/dl 107 mg/dl White Blood Count 4.51 K/uL Red Blood Count 2.97 M/uL Hemoglobin 8.7 g/dL Hematocrit 27.7 % Mean Corpuscular Volume 93.3 fL Mean Corpuscular Hemoglobin 29.3 pg Mean Corpuscular Hemoglobin Concent 31.4 g/dl RDW Standard Deviation 71.0 fL RDW Coefficient of Variation 20.8 % Platelet Count 122 K/uL Mean Platelet Volume 11.0 fL Sodium Level 139 mmol/L Potassium Level 3.8 mmol/L Chloride Level 100 mmol/L Carbon Dioxide Level 32 mmol/L Anion Gap 7.0 mmol/L Blood Urea Nitrogen 38 mg/dl Creatinine 1.70 mg/dl Est Creatinine Clear Calc Drug Dose 31.0 ml/min Estimated GFR () 40.8 Estimated GFR (Non- 35.2 BUN/Creatinine Ratio 22.6 Random Glucose 109 mg/dl Calcium Level 8.6 mg/dl Test 12/17/16 11:19 Bedside Glucose 113 mg/dl
--- NOTE | 2016-12-17 16:47 | Infectious Disease Progress Nt ---
Progress Note Date of Service Dec 17, 2016. Subjective Pt evaluation today including: conversation w/ patient, physical exam, chart review, lab review, review of studies, conversation w/ wallpaper consultant, review of inpatient medication list Patient continues with intermittent confusion. Remains afebrile and hemodynamically stable. All Other Systems: Reviewed and Negative Medications Current Inpatient Medications Medications (Trade) Dose Ordered Sig/Rosemarie Route Start Time Stop Time Status Last Admin Dose Admin Acetaminophen (Tylenol Tab) 650 mg Q4H PRN PO 12/06/16 12:45 01/05/17 12:44 Ondansetron HCl (Zofran Inj) 4 mg Q6H PRN IV 12/06/16 12:45 01/05/17 12:44 Enteral Nutritional Formula (Boost Breeze Nutritional Drink) 1 box DAILY PO 12/07/16 09:00 01/06/17 08:59 12/15/16 09:13 1 BOX Aspirin (Ecotrin Tab) 81 mg QAM PO 12/07/16 09:00 01/06/17 08:59 Future Hold 12/15/16 09:06 81 MG Folic Acid (Folvite Tab) 1 mg QAM PO 12/07/16 09:00 01/06/17 08:59 12/17/16 08:02 1 MG Insulin Glargine (Lantus Solostar Pen) 10 units HS SC 12/06/16 21:00 01/05/17 20:59 12/16/16 20:36 10 UNITS Metoprolol Tartrate (Lopressor Tab) 25 mg BID PO 12/06/16 21:00 01/05/17 20:59 12/16/16 20:35 25 MG Multivitamins/ Minerals (Multivitamin W/ Minerals Tab) 1 tab QAM PO 12/07/16 09:00 01/06/17 08:59 12/17/16 08:03 1 TAB Potassium Chloride (Klor-Con Tab) 20 meq DAILY PO 12/07/16 09:00 01/06/17 08:59 12/17/16 08:02 20 MEQ Ascorbic Acid (Vitamin C Tab) 500 mg DAILY PO 12/07/16 09:00 01/06/17 08:59 12/17/16 08:03 500 MG Cholecalciferol (Vitamin D Tab) 2,000 inter.unit QAM PO 12/07/16 09:00 01/06/17 08:59 12/17/16 08:03 2,000 INTER.UNIT Ferrous Sulfate (Feosol Tab) 325 mg TIDM PO 12/06/16 16:45 01/05/17 16:44 12/17/16 16:30 325 MG Insulin Aspart (novoLOG ASPART) SLIDING SCALE If C... ACHS SC 12/06/16 16:15 01/05/17 16:14 12/16/16 20:36 5 UNITS Glucose (Glucose 40% Gel) 15-30 GRAMS 15 GRAMS... UD PRN PO 12/06/16 13:30 01/05/17 13:29 Glucose (Glucose Chew Tab) 4-8 Tablets 4 Tabl... UD PRN PO 12/06/16 13:30 01/05/17 13:29 Dextrose (Dextrose 50% 50ML Syringe) 25-50ML OF 50% DW IV FOR... UD PRN IV 12/06/16 13:30 01/05/17 13:29 Glucagon (Glucagon Inj) 1 mg UD PRN SQ 12/06/16 13:30 01/05/17 13:29 Piperacillin Sod/ Tazobactam Sod (Consult) 1 ea UD PRN N/A 12/06/16 13:30 12/17/16 22:00 Piperacillin Sod/ Tazobactam Sod 3.375 gm/Dextrose 115 ml @ 28.75 mls/ hr Q8H IV 12/06/16 16:00 12/23/16 15:59 12/17/16 16:30 28.75 MLS/HR Heparin Sodium (Porcine) (Heparin 10 Unit/ ml 5 ml Flush) 5 ml PRN PRN FLUSH 12/06/16 22:15 01/05/17 22:14 12/08/16 04:59 5 ML Daptomycin 500 mg/ Sodium Chloride 60 ml @ 100 mls/hr Q48H IV 12/10/16 20:00 01/21/17 19:59 12/16/16 20:34 100 MLS/HR Hydromorphone HCl (Dilaudid Inj) 0.5 mg Q3H PRN IV 12/16/16 00:30 12/30/16 00:29 Tramadol HCl (Ultram Tab) 25 mg Q6H PRN PO 12/16/16 00:30 01/15/17 00:29 Heparin Sodium (Porcine) (Heparin Sq 5000 Unit/0.5ml) 5,000 unit Q12 SQ 12/16/16 21:00 01/15/17 20:59 12/17/16 08:07 5,000 UNIT Furosemide (Lasix Tab) 40 mg QAM PO 12/18/16 09:00 01/17/17 08:59 Objective Vital Signs Date Time Temp Pulse Resp B/P (MAP) Pulse Ox O2 Delivery O2 Flow Rate FiO2 12/17/16 16:00 Nasal Cannula 1.0 Humidified Oxygen 12/17/16 15:36 36.4 96 20 114/60 (78) 93 Nasal Cannula 1.0 12/17/16 12:00 Nasal Cannula 1.0 Humidified Oxygen 12/17/16 11:21 36.5 89 24 120/62 (81) 96 Nasal Cannula 1.0 Humidified Oxygen 12/17/16 08:00 Nasal Cannula 2.0 Humidified Oxygen 12/17/16 07:49 36.5 81 22 96/66 (76) 100 Nasal Cannula 2.0 Humidified Oxygen 12/17/16 04:00 36.5 77 26 114/54 (74) 97 Nasal Cannula 2.0 12/17/16 04:00 Nasal Cannula 2.0 Humidified Oxygen 12/17/16 00:00 Nasal Cannula 2.0 Humidified Oxygen 12/16/16 23:45 36.5 71 20 113/80 (91) 100 Nasal Cannula 2.0 Humidified Oxygen 12/16/16 20:17 36.5 87 21 115/70 (85) 100 Nasal Cannula 2.0 12/16/16 20:15 100 Nasal Cannula 2.0 Physical Exam General Appearance: no apparent distress, + pertinent finding ( chronically ill -appearing) Eyes: normal inspection, EOMI ENT: normal ENT inspection, pharynx normal Neck: supple, no adenopathy, trachea midline Respiratory/Chest: chest non-tender, lungs clear, normal breath sounds, no respiratory distress Cardiovascular: no gallop, no murmur, + irregularly irregular Abdomen: normal bowel sounds, non tender, soft, no organomegaly Extremities: non-tender, no calf tenderness Neurologic/Psychiatric: alert, oriented x 3 Skin: normal color, no rash Lymphatic: no adenopathy Laboratory Results Last 24 Hours Test 12/16/16 20:05 12/17/16 04:22 12/17/16 07:00 12/17/16 11:19 Bedside Glucose 272 mg/dl 107 mg/dl 113 mg/dl White Blood Count 4.51 K/uL Red Blood Count 2.97 M/uL Hemoglobin 8.7 g/dL Hematocrit 27.7 % Mean Corpuscular Volume 93.3 fL Mean Corpuscular Hemoglobin 29.3 pg Mean Corpuscular Hemoglobin Concent 31.4 g/dl RDW Standard Deviation 71.0 fL RDW Coefficient of Variation 20.8 % Platelet Count 122 K/uL Mean Platelet Volume 11.0 fL Sodium Level 139 mmol/L Potassium Level 3.8 mmol/L Chloride Level 100 mmol/L Carbon Dioxide Level 32 mmol/L Anion Gap 7.0 mmol/L Blood Urea Nitrogen 38 mg/dl Creatinine 1.70 mg/dl Est Creatinine Clear Calc Drug Dose 31.0 ml/min Estimated GFR () 40.8 Estimated GFR (Non- 35.2 BUN/Creatinine Ratio 22.6 Random Glucose 109 mg/dl Calcium Level 8.6 mg/dl Test 12/17/16 16:28 Bedside Glucose 137 mg/dl Assessment and Plan 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 Patient will be continued on daptomycin and Zosyn pending further culture results and clinical response.
[2016-12-17 19:07] VITALS: BP 125/64; PULSE 94; TEMP 36.5; O2SAT 96
--- NOTE | 2016-12-17 19:17 | Progress Note ---
Medicine Progress Note Date & Time of Visit: Dec 17, 2016 at 14:06. Subjective Pt was seen and examined Sitting in chair with no distress He said that he does not have any pain in his foot Denies any chest pain, palpitation, dizziness and SOB Objective Last 8 Hrs Date Time Temp Pulse Resp B/P (MAP) Pulse Ox O2 Delivery O2 Flow Rate FiO2 12/17/16 16:00 Nasal Cannula 1.0 Humidified Oxygen 12/17/16 15:36 36.4 96 20 114/60 (78) 93 Nasal Cannula 1.0 12/17/16 12:00 Nasal Cannula 1.0 Humidified Oxygen 12/17/16 11:21 36.5 89 24 120/62 (81) 96 Nasal Cannula 1.0 Humidified Oxygen Physical Exam: General- No acute distress Head- atraumatic Eyes- PERRL, EOMI ENT- oropharynx clear Neck- no JVD Lungs- No wheezing Heart- irregular rhythm Abdomen- normal bowel sounds, soft Extremities +edema, no calf tenderness, amputation of 3rd and 5th toes in the left foot Neuro- alert, oriented, PERRL, EOMI Skin- warm & dry Laboratory Results: Last 24 Hours Test 12/16/16 20:05 12/17/16 04:22 12/17/16 07:00 12/17/16 11:19 Bedside Glucose 272 mg/dl 107 mg/dl 113 mg/dl White Blood Count 4.51 K/uL Red Blood Count 2.97 M/uL Hemoglobin 8.7 g/dL Hematocrit 27.7 % Mean Corpuscular Volume 93.3 fL Mean Corpuscular Hemoglobin 29.3 pg Mean Corpuscular Hemoglobin Concent 31.4 g/dl RDW Standard Deviation 71.0 fL RDW Coefficient of Variation 20.8 % Platelet Count 122 K/uL Mean Platelet Volume 11.0 fL Sodium Level 139 mmol/L Potassium Level 3.8 mmol/L Chloride Level 100 mmol/L Carbon Dioxide Level 32 mmol/L Anion Gap 7.0 mmol/L Blood Urea Nitrogen 38 mg/dl Creatinine 1.70 mg/dl Est Creatinine Clear Calc Drug Dose 31.0 ml/min Estimated GFR () 40.8 Estimated GFR (Non- 35.2 BUN/Creatinine Ratio 22.6 Random Glucose 109 mg/dl Calcium Level 8.6 mg/dl Test 12/17/16 16:28 Bedside Glucose 137 mg/dl Assessment & Plan ACUTE ON CHRONIC SYSTOLIC CHF BL PLEURAL EFFUSIONS - Present with worsening shortness of breath and lower extremity edema x 2 weeks despite outpatient titration of diuretics - CXR s on admission showed BL pleural effusions - Chest US showed large effusions that were marked for possible thoracentesis - Pulmonary on board - s/p right sided 12/08 thoracocentesis of 1400cc pleural fluid - s/p left sided 12/09 thoracentesis of 1500cc pleural fluid - On lasix 40 mg po BID - Continue fluid restriction - Last echo on 09/2016 showed EF 35-40% - cardiology on board -Continue beta norma and low-dose aspirin. - Symptoms of orthopnea reported last night - Lasix IV 60mgx1 order by cardiology - Continue Lasix 40mg BID - clinically stable 12/17 Lasix decreased to 40mg daily Continue beta norma, asa 81 mg Continue monitor I/O and electrolytes Cardiorenal syndrome - creatinine stable Chronic rate controlled atrial fibrillation. 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 Ahumada - Continue IV Zosyn and daptomycin - wound care On board - Plan for left toes (5th and possible 3th toes) amputation tomorrow - NPO after midnight 12/17 S/p day toes (3rd through 5rd) amputation of left foot by Dr. Ahumada No post op complication hgb stable continue pain control continue current IV abx as per ID Case discussed with Surgery Dr. Ahumada Wound care consult consider wound vac continue daily wound care Ok to ambulate PT/OT Lower extremity CT scan done showed: 1. Findings consistent with osteomyelitis of the proximal phalanx of the third toe with concern for septic arthritis of the third metatarsophalangeal joint. This be better demonstrated on MR. 2. Suspicion for septic arthritis/osteomyelitis of the head of the second metatarsal and second metatarsophalangeal joint. -ID recommended starting daptomycin on 12/10/16 in addition to patient already on Zosyn IV for osteomyelitis -Surgery on board -Schedule for toe amputation on 12/[address] Ramondelli for toe amputations on 12/16/16 Hematuria due to trauma from matos Urology consulted recommended to leave forley out if able to void due to recent self induced matos trauma or If unable to void or if needed for urethral tamponnade replace matos. continue monitor removed matos if pt becomes agitated resolved DM recent Hba1c 6.5 on 09/2016 Lantus + SSI ANEMIA chronic Hbg stable Stg II Sacral Decub-POA, Optifoam applied, EHOB mattress. Continue daily wound care Wound care on board Abdominal bruising -From subQ heparin -Ultrasound showed soft tissue contusion of lower abdominal wall and a 1.6 x 1.2 x 0.5 cm slightly complex subcutaneous fluid collection likely small hematoma. - Stable DVT Px will hod morning dose of heparin subq for the surgery CODE STATUS DNR Disposition -Continue IV daptomycin/ Iv Zosyn as per ID Consultants: Cardiology Surgery Procedures: Amputation of Left foot 3rd through 5th toes Current Inpatient Medications: Current Inpatient Medications Medications (Trade) Dose Ordered Sig/Rosemarie Route Start Time Stop Time Status Last Admin Dose Admin Acetaminophen (Tylenol Tab) 650 mg Q4H PRN PO 12/06/16 12:45 01/05/17 12:44 Ondansetron HCl (Zofran Inj) 4 mg Q6H PRN IV 12/06/16 12:45 01/05/17 12:44 Enteral Nutritional Formula (Boost Breeze Nutritional Drink) 1 box DAILY PO 12/07/16 09:00 01/06/17 08:59 12/15/16 09:13 1 BOX Aspirin (Ecotrin Tab) 81 mg QAM PO 12/07/16 09:00 01/06/17 08:59 Future Hold 12/15/16 09:06 81 MG Folic Acid (Folvite Tab) 1 mg QAM PO 12/07/16 09:00 01/06/17 08:59 12/17/16 08:02 1 MG Insulin Glargine (Lantus Solostar Pen) 10 units HS SC 12/06/16 21:00 01/05/17 20:59 12/16/16 20:36 10 UNITS Metoprolol Tartrate (Lopressor Tab) 25 mg BID PO 12/06/16 21:00 01/05/17 20:59 12/16/16 20:35 25 MG Multivitamins/ Minerals (Multivitamin W/ Minerals Tab) 1 tab QAM PO 12/07/16 09:00 01/06/17 08:59 12/17/16 08:03 1 TAB Potassium Chloride (Klor-Con Tab) 20 meq DAILY PO 12/07/16 09:00 01/06/17 08:59 12/17/16 08:02 20 MEQ Ascorbic Acid (Vitamin C Tab) 500 mg DAILY PO 12/07/16 09:00 01/06/17 08:59 12/17/16 08:03 500 MG Cholecalciferol (Vitamin D Tab) 2,000 inter.unit QAM PO 12/07/16 09:00 01/06/17 08:59 12/17/16 08:03 2,000 INTER.UNIT Ferrous Sulfate (Feosol Tab) 325 mg TIDM PO 12/06/16 16:45 01/05/17 16:44 12/17/16 16:30 325 MG Insulin Aspart (novoLOG ASPART) SLIDING SCALE If C... ACHS SC 12/06/16 16:15 01/05/17 16:14 12/17/16 17:18 2 UNITS Glucose (Glucose 40% Gel) 15-30 GRAMS 15 GRAMS... UD PRN PO 12/06/16 13:30 01/05/17 13:29 Glucose (Glucose Chew Tab) 4-8 Tablets 4 Tabl... UD PRN PO 12/06/16 13:30 01/05/17 13:29 Dextrose (Dextrose 50% 50ML Syringe) 25-50ML OF 50% DW IV FOR... UD PRN IV 12/06/16 13:30 01/05/17 13:29 Glucagon (Glucagon Inj) 1 mg UD PRN SQ 12/06/16 13:30 01/05/17 13:29 Piperacillin Sod/ Tazobactam Sod (Consult) 1 ea UD PRN N/A 12/06/16 13:30 12/17/16 22:00 Piperacillin Sod/ Tazobactam Sod 3.375 gm/Dextrose 115 ml @ 28.75 mls/ hr Q8H IV 12/06/16 16:00 12/23/16 15:59 12/17/16 16:30 28.75 MLS/HR Heparin Sodium (Porcine) (Heparin 10 Unit/ ml 5 ml Flush) 5 ml PRN PRN FLUSH 12/06/16 22:15 01/05/17 22:14 12/08/16 04:59 5 ML Daptomycin 500 mg/ Sodium Chloride 60 ml @ 100 mls/hr Q48H IV 12/10/16 20:00 01/21/17 19:59 12/16/16 20:34 100 MLS/HR Hydromorphone HCl (Dilaudid Inj) 0.5 mg Q3H PRN IV 12/16/16 00:30 12/30/16 00:29 Tramadol HCl (Ultram Tab) 25 mg Q6H PRN PO 12/16/16 00:30 01/15/17 00:29 Heparin Sodium (Porcine) (Heparin Sq 5000 Unit/0.5ml) 5,000 unit Q12 SQ 12/16/16 21:00 01/15/17 20:59 12/17/16 08:07 5,000 UNIT Furosemide (Lasix Tab) 40 mg QAM PO 12/18/16 09:00 01/17/17 08:59
[2016-12-17] MEDS: INSULIN GLARGINE SOLOSTAR 100 UNITS/ML 3 ML PEN SC SCH (20:33)
[2016-12-17 23:56] VITALS: BP 125/61; PULSE 86; TEMP 36.8; O2SAT 92
[2016-12-18] VITALS (8 sets, daily range): BP systolic 107–134; BP diastolic 55–81; PULSE 82–96; TEMP 36.4–36.6; O2SAT 93–99
[2016-12-18] MEDS: PIPERACILL/TAZOBAC IV 3.375 GM in DEXTROSE 5% 100ML IV SCH ×4 (00:14→23:37)
[2016-12-18 06:33] LABS: HEMATOCRIT 24.6 % (42-52); MEAN CELL VOLUME 92.8 fL (80-100); MEAN CORPUSCULAR HEMOGLOBIN 29.8 pg (25-34); MEAN CORPUSCULAR HGB CONC 32.1 g/dl (32-36); MEAN PLATELET VOLUME 10.9 fL (7.4-10.4); PLATELET COUNT 117 K/uL (130-400); RED BLOOD COUNT 2.65 M/uL (4.7-6.1); WHITE BLOOD COUNT 3.64 K/uL (4.8-10.8)
[2016-12-18 07:22] LABS: CALCIUM 8.8 mg/dl (8.5-10.1)
[2016-12-18] MEDS: FERROUS SULFATE 325 MG TAB PO SCH ×3 (07:53→16:10)
[2016-12-18] MEDS: CEROVITE ADV FORMULA TAB PO SCH (07:53)
[2016-12-18] MEDS: METOPROLOL TARTRATE 25 MG TAB PO SCH ×2 (07:53→20:32)
[2016-12-18] MEDS: ASCORBIC ACID 500 MG TAB PO SCH (07:53)
[2016-12-18] MEDS: POTASSIUM CHLORIDE 20 MEQ TABCR PO SCH (07:54)
[2016-12-18] MEDS: CHOLECALCIFEROL 1000 INTER.UNIT TAB PO SCH (07:55)
[2016-12-18] MEDS: INSULIN ASPART 100 UNITS/ML 3 ML PEN SC SCH ×4 (07:58→20:34)
[2016-12-18] MEDS: HEPARIN SOD 5000 UNIT/0.5 ML CARP SQ SCH (07:59)
[2016-12-18] MEDS: BOOST BREEZE NUTRITION DRINK 1 BOX PO SCH (07:59)
[2016-12-18] MEDS ORDERED: FUROSEMIDE 40 MG TAB PO SCH (09:00)
--- NOTE | 2016-12-18 10:14 | Surgery Progress Note ---
Surgery Progress Note Date of Service Dec 18, 2016. Subjective Post OP Day: 2 + feeling well denies pain Objective Vital Signs: Date Time Temp Pulse Resp B/P (MAP) Pulse Ox O2 Delivery O2 Flow Rate FiO2 12/18/16 08:38 36.6 89 31 107/55 (72) 93 Room Air 12/18/16 08:00 99 Nasal Cannula 1.0 12/18/16 04:34 36.6 90 20 117/67 (84) 99 Nasal Cannula 1.0 12/18/16 04:00 Nasal Cannula 1.0 Humidified Oxygen 12/18/16 00:00 Nasal Cannula 1.0 Humidified Oxygen 12/17/16 23:56 36.8 86 21 125/61 (82) 92 Nasal Cannula 2.0 12/17/16 20:00 Nasal Cannula 1.0 Humidified Oxygen 12/17/16 19:07 36.5 94 16 125/64 (84) 96 Nasal Cannula 1.0 12/17/16 16:00 Nasal Cannula 1.0 Humidified Oxygen 12/17/16 15:36 36.4 96 20 114/60 (78) 93 Nasal Cannula 1.0 12/17/16 12:00 Nasal Cannula 1.0 Humidified Oxygen 12/17/16 11:21 36.5 89 24 120/62 (81) 96 Nasal Cannula 1.0 Humidified Oxygen General Appearance: no apparent distress Respiratory/Chest: no respiratory distress, no accessory muscle use Incision(s): findings (dressing is dry/intact. bleeding has stopped. ) Laboratory Results: Results Past 24 Hours Test 12/17/16 11:19 12/17/16 16:28 12/17/16 20:10 12/18/16 05:59 Range/Units Bedside Glucose 113 137 190 70-99 mg/dl White Blood Count 3.64 4.8-10.8 K/uL Red Blood Count 2.65 4.7-6.1 M/uL Hemoglobin 7.9 14.0-18.0 g/dL Hematocrit 24.6 42-52 % Mean Corpuscular Volume 92.8 80-100 fL Mean Corpuscular Hemoglobin 29.8 25-34 pg Mean Corpuscular Hemoglobin Concent 32.1 32-36 g/dl RDW Standard Deviation 70.6 36.4-46.3 fL RDW Coefficient of Variation 20.9 11.5-14.5 % Platelet Count 117 130-400 K/uL Mean Platelet Volume 10.9 7.4-10.4 fL Sodium Level 136 136-145 mmol/L Potassium Level 4.0 3.5-5.1 mmol/L Chloride Level 97 98-107 mmol/L Carbon Dioxide Level 31 21-32 mmol/L Anion Gap 8.0 3-11 mmol/L Blood Urea Nitrogen 40 7-18 mg/dl Creatinine 2.00 0.60-1.40 mg/dl Est Creatinine Clear Calc Drug Dose 26.4 ml/min Estimated GFR () 33.5 Estimated GFR (Non- 28.9 BUN/Creatinine Ratio 20.0 10-20 Random Glucose 146 70-99 mg/dl Calcium Level 8.8 8.5-10.1 mg/dl Test 12/18/16 06:34 Range/Units Bedside Glucose 156 70-99 mg/dl Assessment & Plan 12/18/16 doing well. wound care to repack tuesday pain controlled.
--- NOTE | 2016-12-18 11:44 | CARDIOLOGY PROGRESS NOTE ---
DATE: 12/18/2016 DATE: 12/18/2016 The patient seen and examined. Chart, medications, telemetry reviewed. SUBJECTIVE: The patient notes no acute complaints this morning. He tolerated the surgical procedure yesterday. Notes no fevers, chills. Notes no tachypalpitations. Notes no dizziness or lightheadedness. Appetite has improved slightly. OBJECTIVE: VITAL SIGNS: Heart rate is 89, blood pressure is 107/55. NECK: Thin. There is no jugular venous distention. LUNGS: Reveal diminished breath sounds. CARDIOVASCULAR: Irregular, irregular. There is a grade 1/6 systolic murmur. There is no S3 gallop. ABDOMEN: Soft. EXTREMITIES: Left foot is bandaged. LABORATORY DATA: His white cell count is 3.6, hemoglobin 7.9. Sodium is 136, potassium is 4.0, chloride is 97, bicarb is 31, BUN is 40, creatinine is 2.0. IMPRESSION: An 86-year-old male with complex history of chronic atrial fibrillation with controlled ventricular response rate, and past decompensated congestive heart failure, pleural effusions, cardiorenal syndrome and peripheral vascular disease status post surgical resection 12/16/2016. RECOMMENDATIONS: Creatinine is declined slightly today. No signs or symptoms of volume overload. We will hold oral furosemide until a.m., reassess renal function, no change in cardiac medications otherwise. Hopefully with the resolve of chronic infection issues the patient will demonstrate clinical response.
--- NOTE | 2016-12-18 17:20 | Progress Note ---
Internal Med Progress Note Date of Service: Dec 18, 2016. Provider Documentation: SUBJECTIVE: denies of any pain or discomfort, no fever or chills no complain of SOB Or orthopnea no pain in left foot surgical site OBJECTIVE: Vital Signs-as noted below Exam: General-no sign of distress Head- atraumatic Eyes- PERRL, EOMI Neck- no JVD Lungs- no rales or wheeze noted Heart- irregular rhythm Abdomen- normal bowel sounds, soft Extremities -left foot bandaged Neuro- alert, oriented , no focal deficit Lab data as noted below. ASSESSMENT & PLAN: OSTEOMYELITIS OF LEFT FOOT/TOE /DRY GANGRENE s/p amputation of left 3RD through 5 th toe on 12/16/[address] Collins Wound care following , may need wound vac ID following ; pt will be continued with Daptomycin and Zosyn ACUTE ON CHRONIC SYSTOLIC CHF/BILATERAL L PLEURAL EFFUSIONS - Present with worsening shortness of breath and lower extremity edema x 2 weeks despite outpatient titration of diuretics - CXR s on admission showed BL pleural effusions - Chest US showed large effusions that were marked for possible thoracentesis - Pulmonary consulted - s/p right sided 12/08 thoracocentesis of 1400cc pleural fluid - s/p left sided 12/09 thoracentesis of 1500cc pleural fluid - On lasix 40 mg po BID - Continue fluid restriction - Last echo on 09/2016 showed EF 35-40% - cardiology on board, pt is diuresed aggressively for ongoing SOB , orthopnea -Cr elevated 1.7 _> 2 ( GLEN on CKD stage 3 ) -appreciate Cardiology eval ; pt appears to be stable , no evidence of vol overload -Lasix is kept on hold today Continue beta norma, asa 81 mg Continue monitor I/O and electrolytes ACUTE BLOOD LOSS ANEMIA : Hb drop form 8.7-> 7.9 due to post status follow H&H will need tx for Hb < 7 or symptom of hypotension /dizzy spell will need Lasix post transfusion to prevent vol overload GLEN ON CKD STAGE 3 : due to diuresis Lasix on hold repeat PRP in AM HX OF CHRONIC AFIB ; cont on beta norma not a candidate for anticoagulation due to bleeding complications ( epistaxis ) and fall risk HEMATURIA : due to trauma from Matos catheter Urology consulted recommended to leave Matos out if able to void due to recent self induced matos trauma or If unable to void or if needed for urethral tamponnade replace matos. DM type 2 recent Hba1c 6.5 on 09/2016 Lantus + SSI Stg II Sacral Decub-POA, Optifoam applied, EHOB mattress. Continue daily wound care Wound care consulted Abdominal bruising -From subQ heparin -Ultrasound showed soft tissue contusion of lower abdominal wall and a 1.6 x 1.2 x 0.5 cm slightly complex subcutaneous fluid collection likely small hematoma. DVT PROPHYLAXIS moderate to high risk scd /teds pharmacological anticoagulation avoided due to anemia /thrombocytopenia / abdominal wall hematom CODE STATUS DNR Disposition -Continue IV daptomycin/ Iv Zosyn as per ID Consultants: Cardiology Surgery ID Pulmonology Procedures: Amputation of Left foot 3rd through 5th toes DISPOSITION will need SNF -referral made to [facility] Social service consulted for discharge planning Vital Signs: Date Time Temp Pulse Resp B/P (MAP) Pulse Ox O2 Delivery O2 Flow Rate FiO2 12/18/16 16:00 99 Room Air 12/18/16 15:43 36.4 96 18 118/62 (80) 94 Room Air 12/18/16 12:32 36.6 85 33 117/59 (78) 94 Room Air 12/18/16 12:00 99 Nasal Cannula 1.0 12/18/16 08:38 36.6 89 31 107/55 (72) 93 Room Air 12/18/16 08:00 99 Nasal Cannula 1.0 12/18/16 04:34 36.6 90 20 117/67 (84) 99 Nasal Cannula 1.0 12/18/16 04:00 Nasal Cannula 1.0 Humidified Oxygen 12/18/16 00:00 Nasal Cannula 1.0 Humidified Oxygen 12/17/16 23:56 36.8 86 21 125/61 (82) 92 Nasal Cannula 2.0 12/17/16 20:00 Nasal Cannula 1.0 Humidified Oxygen 12/17/16 19:07 36.5 94 16 125/64 (84) 96 Nasal Cannula 1.0 Lab Results: Results Past 24 Hours Test 12/17/16 20:10 12/18/16 05:59 12/18/16 06:34 12/18/16 11:30 Range/Units Bedside Glucose 190 156 189 70-99 mg/dl White Blood Count 3.64 4.8-10.8 K/uL Red Blood Count 2.65 4.7-6.1 M/uL Hemoglobin 7.9 14.0-18.0 g/dL Hematocrit 24.6 42-52 % Mean Corpuscular Volume 92.8 80-100 fL Mean Corpuscular Hemoglobin 29.8 25-34 pg Mean Corpuscular Hemoglobin Concent 32.1 32-36 g/dl RDW Standard Deviation 70.6 36.4-46.3 fL RDW Coefficient of Variation 20.9 11.5-14.5 % Platelet Count 117 130-400 K/uL Mean Platelet Volume 10.9 7.4-10.4 fL Sodium Level 136 136-145 mmol/L Potassium Level 4.0 3.5-5.1 mmol/L Chloride Level 97 98-107 mmol/L Carbon Dioxide Level 31 21-32 mmol/L Anion Gap 8.0 3-11 mmol/L Blood Urea Nitrogen 40 7-18 mg/dl Creatinine 2.00 0.60-1.40 mg/dl Est Creatinine Clear Calc Drug Dose 26.4 ml/min Estimated GFR () 33.5 Estimated GFR (Non- 28.9 BUN/Creatinine Ratio 20.0 10-20 Random Glucose 146 70-99 mg/dl Calcium Level 8.8 8.5-10.1 mg/dl Test 12/18/16 16:17 Range/Units Bedside Glucose 177 70-99 mg/dl
[2016-12-18] MEDS: DAPTOmycin IV 500 MG in SODIUM CHLORIDE 0.9% 50ML 50 ML IV SCH (20:32)
[2016-12-18] MEDS: INSULIN GLARGINE SOLOSTAR 100 UNITS/ML 3 ML PEN SC SCH (20:34)
[2016-12-19] VITALS (9 sets, daily range): BP systolic 106–118; BP diastolic 53–77; PULSE 80–95; TEMP 36.4–37.4; O2SAT 92–100
[2016-12-19 05:46] LABS: MEAN CELL VOLUME 92.6 fL (80-100); MEAN CORPUSCULAR HEMOGLOBIN 28.5 pg (25-34); MEAN CORPUSCULAR HGB CONC 30.8 g/dl (32-36); MEAN PLATELET VOLUME 10.1 fL (7.4-10.4); PLATELET COUNT 128 K/uL (130-400); WHITE BLOOD COUNT 4.82 K/uL (4.8-10.8)
[2016-12-19 06:09] LABS: BUN/CREATININE RATIO 23.1 (10-20); CALCIUM 8.7 mg/dl (8.5-10.1); CREATININE 1.9 mg/dl (0.60-1.40); POTASSIUM 3.8 mmol/L (3.5-5.1)
--- NOTE | 2016-12-19 07:27 | DIAGNOSTIC IMAGING REPORT ---
CHEST ONE VIEW PORTABLE HISTORY: 86 years-old Male pleural effusion lateral fusion follow-up. History of prior thoracentesis COMPARISON: Chest radiograph 12/09/2016 TECHNIQUE: Portable upright AP view of the chest FINDINGS: Cardiac silhouette is again mildly enlarged. There is atherosclerosis of the aorta. Prior median sternotomy. Right-sided PICC is again noted with distal tip in the region of the right atrium. No pneumothorax. There is increased size of small to moderate bilateral pleural effusions with bibasilar alveolar opacities. Bones are grossly intact. There is atherosclerosis of the aorta. IMPRESSION: 1. Small to moderate bilateral pleural effusions have increased in size from comparison with bibasilar alveolar opacities suggesting atelectasis or pneumonia. 2. Cardiomegaly without overt pulmonary edema. 3. Right-sided PICC is noted with distal tip in the region of the right atrium. The above report was generated using voice recognition software. It may contain grammatical, syntax or spelling errors. Electronically signed by: Dominik Yeung M.D. 12/19/2016 7:26 AM Dictated Date/Time: 12/19/2016 7:23 AM
[2016-12-19] MEDS: FERROUS SULFATE 325 MG TAB PO SCH ×3 (07:44→16:15)
[2016-12-19] MEDS: METOPROLOL TARTRATE 25 MG TAB PO SCH ×2 (07:44→20:32)
[2016-12-19] MEDS: ASCORBIC ACID 500 MG TAB PO SCH (07:44)
[2016-12-19] MEDS: CEROVITE ADV FORMULA TAB PO SCH (07:44)
[2016-12-19] MEDS: PIPERACILL/TAZOBAC IV 3.375 GM in DEXTROSE 5% 100ML IV SCH ×2 (07:45→16:13)
[2016-12-19] MEDS: CHOLECALCIFEROL 1000 INTER.UNIT TAB PO SCH (07:46)
[2016-12-19] MEDS: BOOST BREEZE NUTRITION DRINK 1 BOX PO SCH (07:46)
[2016-12-19] MEDS: POTASSIUM CHLORIDE 20 MEQ TABCR PO SCH (07:46)
[2016-12-19] MEDS: INSULIN ASPART 100 UNITS/ML 3 ML PEN SC SCH ×4 (07:49→20:33)
--- NOTE | 2016-12-19 10:55 | Surgery Progress Note ---
Surgery Progress Note Date of Service Dec 19, 2016. Subjective Post OP Day: 3 pt was having some bleeding from his 5th digit on his right foot. no pain. no pain in left foot either. Objective Vital Signs: Date Time Temp Pulse Resp B/P (MAP) Pulse Ox O2 Delivery O2 Flow Rate FiO2 12/19/16 08:17 37.4 89 22 106/72 (83) 100 Nasal Cannula 3.0 12/19/16 08:00 99 Room Air 12/19/16 04:24 36.6 95 21 106/70 (82) 96 Nasal Cannula 3.0 12/19/16 04:00 Nasal Cannula 2.0 Humidified Oxygen 12/19/16 00:24 36.5 81 22 118/63 (81) 95 Nasal Cannula 3.0 12/19/16 00:00 Nasal Cannula 2.0 Humidified Oxygen 12/18/16 20:00 Nasal Cannula 2.0 Humidified Oxygen 12/18/16 19:17 36.5 82 16 134/81 (98) 97 Nasal Cannula 3.0 12/18/16 16:00 99 Room Air 12/18/16 15:43 36.4 96 18 118/62 (80) 94 Room Air 12/18/16 12:32 36.6 85 33 117/59 (78) 94 Room Air 12/18/16 12:00 99 Nasal Cannula 1.0 General Appearance: no apparent distress Extremities: + pertinent finding (right 5th digit without evidence of ischemia. some dried blood. no bleeding currently. ? etiology. right foot with dressing thats c/d/i) Laboratory Results: Results Past 24 Hours Test 12/18/16 11:30 12/18/16 16:17 12/18/16 20:07 12/19/16 05:23 Range/Units Bedside Glucose 189 177 193 70-99 mg/dl White Blood Count 4.82 4.8-10.8 K/uL Red Blood Count 2.70 4.7-6.1 M/uL Hemoglobin 7.7 14.0-18.0 g/dL Hematocrit 25.0 42-52 % Mean Corpuscular Volume 92.6 80-100 fL Mean Corpuscular Hemoglobin 28.5 25-34 pg Mean Corpuscular Hemoglobin Concent 30.8 32-36 g/dl RDW Standard Deviation 69.9 36.4-46.3 fL RDW Coefficient of Variation 20.7 11.5-14.5 % Platelet Count 128 130-400 K/uL Mean Platelet Volume 10.1 7.4-10.4 fL Sodium Level 137 136-145 mmol/L Potassium Level 3.8 3.5-5.1 mmol/L Chloride Level 98 98-107 mmol/L Carbon Dioxide Level 29 21-32 mmol/L Anion Gap 10.0 3-11 mmol/L Blood Urea Nitrogen 44 7-18 mg/dl Creatinine 1.90 0.60-1.40 mg/dl Est Creatinine Clear Calc Drug Dose 27.7 ml/min Estimated GFR () 35.7 Estimated GFR (Non- 30.8 BUN/Creatinine Ratio 23.1 10-20 Random Glucose 146 70-99 mg/dl Calcium Level 8.7 8.5-10.1 mg/dl Test 12/19/16 06:34 Range/Units Bedside Glucose 149 70-99 mg/dl Assessment & Plan 12/19 no problems surgically wound care to re-pack tomorrow no surgical pain. 12/18/16 doing well. wound care to repack tuesday pain controlled. 12/18/16 doing well. wound care to repack tuesday pain controlled.
--- NOTE | 2016-12-19 13:51 | PROGRESS NOTE ---
DATE: 12/19/2016 CONSULTATION FOLLOWUP NOTE The patient seen and examined. Chart, medications, telemetry reviewed. SUBJECTIVE: The patient feels slightly better today, notes no complaints of pain or discomfort. Notes no tachypalpitations, dizziness. OBJECTIVE: VITAL SIGNS: Heart rate is 82, blood pressure is 112/53. NECK: Thin. There is no distinct jugular venous distention. LUNGS: Reveal diminished breath sounds that are predominantly clear. CARDIOVASCULAR: Irregularly irregular. Grade 1/6 systolic murmur. There is no S3 gallop. ABDOMEN: Soft, there is no hepatojugular reflux. EXTREMITIES: Without cyanosis or clubbing. Left foot is bandaged. LABORATORY STUDIES: Sodium is 137, potassium is 3.8, chloride is 98, bicarb is 29, BUN is 44, creatinine is 1.9. IMPRESSION: Complex 86-year-old male status post transmetatarsal amputation, issues with chronic atrial fibrillation with controlled ventricular response rate, past history of decompensated congestive heart failure, clinically improved currently, cardiorenal syndrome with chronic renal insufficiency. RECOMMENDATIONS: We will continue to hold furosemide. Likely resume in a.m. I agree with plans for dietary supplementation. Ultimate goal is to improve nutritional status to aid in surgical healing. We will follow patient in the hospital.
--- NOTE | 2016-12-19 15:47 | Progress Note ---
Internal Med Progress Note Date of Service: Dec 19, 2016. Provider Documentation: SUBJECTIVE: sitting up on side of bed , offers no complain of pain or discomfort does not have much pain on left food no fever or chills OBJECTIVE: Vital Signs-as noted below Exam: General-no sign of distress Head- atraumatic Eyes- PERRL, EOMI Neck- no JVD Lungs- no rales or wheeze noted Heart- irregular rhythm Abdomen- normal bowel sounds, soft Extremities -left foot bandaged Neuro- alert, oriented , no focal deficit Lab data as noted below. ASSESSMENT & PLAN: OSTEOMYELITIS OF LEFT FOOT/TOE /DRY GANGRENE s/p transmetatarsal amputation of left 3RD through 5 th toe on 12/16/[address] Collins Wound care following , may need wound vac ID following ; is continued with Daptomycin and Zosyn ACUTE ON CHRONIC SYSTOLIC CHF/BILATERAL L PLEURAL EFFUSIONS - Present with worsening shortness of breath and lower extremity edema x 2 weeks despite outpatient titration of diuretics - CXR s on admission showed BL pleural effusions - Chest US showed large effusions that were marked for possible thoracentesis - Pulmonary consulted - s/p right sided 12/08 thoracocentesis of 1400cc pleural fluid - s/p left sided 12/09 thoracentesis of 1500cc pleural fluid - was On lasix 40 mg po BID-on hold for GLEN - Continue fluid restriction - Last echo on 09/2016 showed EF 35-40% - Cardiology following -appreciate Cardiology eval ; -Lasix is kept on hold -Cr elevated improved 1.7 _> 2 -> 1.9 ( GLEN on CKD stage 3 ) chest Xray shows-Small to moderate bilateral pleural effusions have increased in size from comparison from 12/09/16 ; with bibasilar alveolar opacities suggesting atelectasis or pneumonia. plan to resume Lasix and renal function improves Continue beta norma, asa 81 mg Continue monitor I/O and electrolytes cont to monitor pt in Tele due to ongoing CHF and renal failure /GLEN ACUTE BLOOD LOSS ANEMIA : Hb drop form 8.7-> 7.9 -> 7.7 due to post status follow H&H will need tx for Hb < 7 or symptom of hypotension /dizzy spell will need Lasix post transfusion to prevent vol overload GLEN ON CKD STAGE 3 : due to diuresis ; Cr gradually improving 2-> 1.9 Lasix on hold repeat PRP in AM HX OF CHRONIC AFIB ; cont on beta norma not a candidate for anticoagulation due to bleeding complications ( epistaxis ) and fall risk HEMATURIA : resolved due to trauma from Lynn catheter Urology consulted -appreciate input DM type 2 recent Hba1c 6.5 on 09/2016 Lantus + SSI Stg II Sacral Decub-POA, Optifoam applied, EHOB mattress. Continue daily wound care Wound care consulted Abdominal bruising -From subQ heparin -Ultrasound showed soft tissue contusion of lower abdominal wall and a 1.6 x 1.2 x 0.5 cm slightly complex subcutaneous fluid collection likely small hematoma. DVT PROPHYLAXIS moderate to high risk scd /teds pharmacological anticoagulation avoided due to anemia /thrombocytopenia / abdominal wall hematom CODE STATUS DNR Disposition -Continue IV daptomycin/ Iv Zosyn as per ID will need SNF placement Consultants: Cardiology Surgery ID Pulmonology Procedures: Amputation of Left foot 3rd through 5th toes DISPOSITION will need SNF -referral made to [facility] Social service consulted for discharge planning Vital Signs: Date Time Temp Pulse Resp B/P (MAP) Pulse Ox O2 Delivery O2 Flow Rate FiO2 12/20/16 04:24 36.8 81 20 122/69 (86) 95 Nasal Cannula 2.0 12/20/16 04:00 Nasal Cannula 2.0 Humidified Oxygen 12/20/16 00:31 37.0 92 22 114/59 (77) 100 Nasal Cannula 12/20/16 00:00 Nasal Cannula 2.0 Humidified Oxygen 12/19/16 20:00 Nasal Cannula 2.0 Humidified Oxygen 12/19/16 19:12 36.4 80 18 114/71 (85) 100 Nasal Cannula 3.0 12/19/16 16:00 99 Room Air 12/19/16 15:24 36.4 88 18 117/77 (90) 94 Nasal Cannula 2.5 12/19/16 12:15 36.6 82 19 112/53 (72) 92 Nasal Cannula 12/19/16 12:00 99 Room Air Lab Results: Results Past 24 Hours Test 12/19/16 11:27 12/19/16 16:14 12/19/16 20:14 12/20/16 07:00 Range/Units Bedside Glucose 165 155 204 162 70-99 mg/dl
[2016-12-19] MEDS: INSULIN GLARGINE SOLOSTAR 100 UNITS/ML 3 ML PEN SC SCH (20:33)
[2016-12-20] VITALS (10 sets, daily range): BP systolic 114–132; BP diastolic 59–77; PULSE 78–92; TEMP 36–37.1; O2SAT 94–100
[2016-12-20] MEDS: PIPERACILL/TAZOBAC IV 3.375 GM in DEXTROSE 5% 100ML IV SCH ×3 (00:17→16:49)
--- NOTE | 2016-12-20 07:22 | SURGERY PROGRESS NOTE ---
DATE: 12/20/2016 Chaz is fourth postoperative day since open transmetatarsal amputation of the third, fourth and fifth toes on the left foot. He was seen by the wound clinic on Tuesday and they recommended to just hold on to the VAC system since he had some bleeding. He continues to do well. Nurses report that the dressing fairly dry and has not needed to be changed. His only problem is he is claustrophobic; does not want anything along his legs, he has had SCDs and we will remove them, he is on subQ heparin. His last vitals showed a temperature of 36.8, pulse 81, respirations 20, blood pressure 122/69 and O2 sats 95 on 2 liters. His Is&Os; fairly balanced. His weight is 79.6 kilograms it was 80 kilograms about 5 days ago. At this point, once the VAC system is applied from my point of view the patient could be discharged. We will leave it to the ID whether or not he should continue with IV antibiotics. At this point, from my point of view, he can certainly be discharged to a regular floor. KAYCEE
[2016-12-20] MEDS: INSULIN ASPART 100 UNITS/ML 3 ML PEN SC SCH ×4 (08:16→20:31)
[2016-12-20] MEDS: FERROUS SULFATE 325 MG TAB PO SCH ×3 (08:17→16:49)
[2016-12-20 08:58] LABS: HEMATOCRIT 25.6 % (42-52); MEAN CELL VOLUME 92.8 fL (80-100); MEAN CORPUSCULAR HEMOGLOBIN 28.6 pg (25-34); MEAN CORPUSCULAR HGB CONC 30.9 g/dl (32-36); MEAN PLATELET VOLUME 9.9 fL (7.4-10.4); PLATELET COUNT 133 K/uL (130-400); RED BLOOD COUNT 2.76 M/uL (4.7-6.1); WHITE BLOOD COUNT 5.43 K/uL (4.8-10.8)
[2016-12-20] MEDS: ASCORBIC ACID 500 MG TAB PO SCH (08:59)
[2016-12-20] MEDS: POTASSIUM CHLORIDE 20 MEQ TABCR PO SCH (08:59)
[2016-12-20] MEDS: CEROVITE ADV FORMULA TAB PO SCH (09:00)
[2016-12-20] MEDS: CHOLECALCIFEROL 1000 INTER.UNIT TAB PO SCH (09:00)
[2016-12-20] MEDS: BOOST BREEZE NUTRITION DRINK 1 BOX PO SCH (09:00)
[2016-12-20] MEDS: METOPROLOL TARTRATE 25 MG TAB PO SCH ×2 (09:00→20:27)
[2016-12-20 09:24] LABS: BUN/CREATININE RATIO 21.6 (10-20); CALCIUM 9.1 mg/dl (8.5-10.1); POTASSIUM 3.6 mmol/L (3.5-5.1)
--- NOTE | 2016-12-20 12:15 | PROGRESS NOTE ---
DATE: 12/20/2016 CARDIOLOGY CONSULTATION FOLLOWUP NOTE The patient seen and examined. Chart, medications, telemetry reviewed. SUBJECTIVE: The patient denies any focal complaints today. Notes legs have been more edematous. Appetite is fair. Pain is controlled. Denies any chest discomfort. Notes no tachypalpitations, dizziness or lightheadedness. OBJECTIVE: VITAL SIGNS: Heart rate 78, blood pressure is 129/77, O2 saturations 95% on 2 liters nasal cannula. NECK: Thin. There is no distinct jugular venous distention. LUNGS: Reveal mildly diminished breath sounds, bilaterally. CARDIOVASCULAR: Irregularly irregular. ABDOMEN: Soft. EXTREMITIES: Reveal 2+ lower extremity edema. IMPRESSION: An 86-year-old male with issues as follows: 1. Chronic osteomyelitis, cellulitis of left foot status post transmetatarsal amputation. 2. Acute decompensated systolic heart failure, volume status initially improved, appears to be now once again regaining fluid, will resume diuretic dosing. 3. Status post aortic valve replacement in 2007. 4. Ischemic cardiomyopathy. PLAN: As noted, a single dose of IV furosemide will be administered today and resume oral furosemide. Will follow fluid status. Renal function has remained stable. Hemoglobin 7.9 and flat. If any decline, would consider transfusion as part of management.
[2016-12-20] MEDS ORDERED: FUROSEMIDE INJ 40 MG in SYRINGE 0 ML IV ONE (12:30)
[2016-12-20 12:49] LABS: BUN/CREATININE RATIO 21.2 (10-20); CALCIUM 9.2 mg/dl (8.5-10.1); CREATININE 1.9 mg/dl (0.60-1.40)
[2016-12-20] MEDS: FUROSEMIDE 20 MG TAB PO SCH (16:50)
--- NOTE | 2016-12-20 18:06 | Progress Note ---
Progress Note Date of Service Dec 20, 2016. Progress Note ATTENDING NOTED : d/w Dr Morelos pt is s/p transmetatarsal amputation of left 2nd to 5 th toe wound and blood cultures no growth clinically pt does not have any S/s of infection OK to discontinue all antibiotics IV Daptomycin and Zosyn D/lizbeth pt will need Wound Vac and ongoing local wound care
--- NOTE | 2016-12-20 19:00 | Progress Note ---
Internal Med Progress Note Date of Service: Dec 20, 2016. Provider Documentation: SUBJECTIVE: does not offers any complain pleasant no fever or chills no complain of pain in left foot surgical site OBJECTIVE: Vital Signs-as noted below Exam: General-no sign of distress Head- atraumatic Eyes- PERRL, EOMI Neck- no JVD Lungs- no rales or wheeze noted Heart- irregular rhythm Abdomen- normal bowel sounds, soft Extremities -left foot s/p transmetatarsal amputation of 3rd to 5 th toe , wound vac present Neuro- alert, oriented , no focal deficit Lab data as noted below. ASSESSMENT & PLAN: OSTEOMYELITIS OF LEFT FOOT/TOE /DRY GANGRENE s/p transmetatarsal amputation of left 3RD through 5 th toe on 12/16/[address] Collins Wound care following , may need wound vac ID following D/w Dr Morelos no indication for continuing IV Abx wound and blood cultures no growth clinically pt does not have any S/s of infection OK to discontinue IV Daptomycin and Zosyn pt will need Wound Vac and ongoing local wound care ACUTE ON CHRONIC SYSTOLIC CHF/BILATERAL L PLEURAL EFFUSIONS - Present with worsening shortness of breath and lower extremity edema x 2 weeks despite outpatient titration of diuretics - CXR s on admission showed BL pleural effusions - Chest US showed large effusions that were marked for possible thoracentesis - Pulmonary consulted - s/p right sided 12/08 thoracocentesis of 1400cc pleural fluid - s/p left sided 12/09 thoracentesis of 1500cc pleural fluid - was On lasix 40 mg po BID-on hold for GLEN - Continue fluid restriction - Last echo on 09/2016 showed EF 35-40% - Cardiology following -appreciate Cardiology eval ; -given Lasix 40 mg IV X1 times , then continue Lasix 20 mg PO BID -Cr improved 1.7 _> 2 -> 1.9 ( GLNE on CKD stage 3 ) chest Xray shows-Small to moderate bilateral pleural effusions have increased in size from comparison from 12/09/16 ; with bibasilar alveolar opacities suggesting atelectasis or pneumonia. Continue beta norma, asa 81 mg Continue monitor I/O and electrolytes cont to monitor pt in Tele due to ongoing CHF and renal failure /GLEN ACUTE BLOOD LOSS ANEMIA : Hb remains stable at 7.9 due to post status follow H&H will need tx for Hb < 7 or symptom of hypotension /dizzy spell will need Lasix post transfusion to prevent vol overload GLEN ON CKD STAGE 3 : due to diuresis ; Cr gradually improving 2-> 1.9 Lasix resumed repeat PRP in AM HX OF CHRONIC AFIB ; cont on beta norma not a candidate for anticoagulation due to bleeding complications ( epistaxis ) and fall risk HEMATURIA : resolved due to trauma from Lynn catheter Urology consulted -appreciate input DM type 2 recent Hba1c 6.5 on 09/2016 Lantus + SSI Stg II Sacral Decub-POA, Optifoam applied, EHOB mattress. Continue daily wound care Wound care consulted Abdominal bruising -From subQ heparin -Ultrasound showed soft tissue contusion of lower abdominal wall and a 1.6 x 1.2 x 0.5 cm slightly complex subcutaneous fluid collection likely small hematoma. DVT PROPHYLAXIS moderate to high risk scd /teds pharmacological anticoagulation avoided due to anemia /thrombocytopenia / abdominal wall hematoma CODE STATUS DNR Disposition will need placement in SNF referral made to [facility] Consultants: Cardiology Surgery ID Pulmonology Procedures: Amputation of Left foot 3rd through 5th toes DISPOSITION will need SNF -referral made to [facility] transfer to [facility] possible tomorrow Social service following for discharge planning Vital Signs: Date Time Temp Pulse Resp B/P (MAP) Pulse Ox O2 Delivery O2 Flow Rate FiO2 12/20/16 16:19 95 Nasal Cannula 2.0 12/20/16 15:43 36.4 88 22 117/74 (88) 96 Room Air 12/20/16 12:27 95 Nasal Cannula 2.0 12/20/16 10:58 36.0 78 18 129/77 (94) 95 Nasal Cannula 2.0 12/20/16 08:47 94 Nasal Cannula 12/20/16 08:36 37.1 90 22 122/63 (82) 94 Nasal Cannula 2.0 12/20/16 08:01 95 Nasal Cannula 2.0 12/20/16 04:24 36.8 81 20 122/69 (86) 95 Nasal Cannula 2.0 12/20/16 04:00 Nasal Cannula 2.0 Humidified Oxygen 12/20/16 00:31 37.0 92 22 114/59 (77) 100 Nasal Cannula 12/20/16 00:00 Nasal Cannula 2.0 Humidified Oxygen Lab Results: Results Past 24 Hours Test 12/20/16 07:00 12/20/16 08:38 12/20/16 12:14 12/20/16 12:20 Range/Units Bedside Glucose 162 162 70-99 mg/dl White Blood Count 5.43 4.8-10.8 K/uL Red Blood Count 2.76 4.7-6.1 M/uL Hemoglobin 7.9 14.0-18.0 g/dL Hematocrit 25.6 42-52 % Mean Corpuscular Volume 92.8 80-100 fL Mean Corpuscular Hemoglobin 28.6 25-34 pg Mean Corpuscular Hemoglobin Concent 30.9 32-36 g/dl RDW Standard Deviation 71.8 36.4-46.3 fL RDW Coefficient of Variation 21.2 11.5-14.5 % Platelet Count 133 130-400 K/uL Mean Platelet Volume 9.9 7.4-10.4 fL Sodium Level 136 136 136-145 mmol/L Potassium Level 3.6 4.0 3.5-5.1 mmol/L Chloride Level 98 99 98-107 mmol/L Carbon Dioxide Level 30 29 21-32 mmol/L Anion Gap 8.0 8.0 3-11 mmol/L Blood Urea Nitrogen 43 40 7-18 mg/dl Creatinine 2.00 1.90 0.60-1.40 mg/dl Est Creatinine Clear Calc Drug Dose 26.4 27.7 ml/min Estimated GFR () 33.5 35.7 Estimated GFR (Non- 28.9 30.8 BUN/Creatinine Ratio 21.6 21.2 10-20 Random Glucose 135 163 70-99 mg/dl Calcium Level 9.1 9.2 8.5-10.1 mg/dl Test 12/20/16 16:16 12/20/16 20:21 Range/Units Bedside Glucose 192 215 70-99 mg/dl
[2016-12-20] MEDS ORDERED: ULT50X PO ×2 (19:08)
--- NOTE | 2016-12-20 19:10 | Discharge Instructions ---
Discharge Instructions Date of Service Dec 20, 2016. Admission Reason for Admission: Pe, Volume Overload Discharge Discharge Diagnosis / Problem: CHRONIC OSTEOMYELITIS /CELLULITIS OF LEFT FOOT / ACUTE CHF Discharge Goals Goal(s): Decrease discomfort, Increase independence, Improve disease control, Diagnostic testing, Therapeutic intervention Activity Recommendations Activity Level: Assistance Required Therapies: Physical Therapy, Occupational Therapy Weightbearing Status: Right non-weightbearing . Additional Information Patient informed of condition: Yes Advance Directives: Yes DNR: Yes Level of Care: Skilled Communicable Disease: No Prognosis: Stable Lynn Catheter: No Instructions / Follow-Up Instructions / Follow-Up FOLLOW UP WITH PHYSICIAN AT [facility] REPEAT LAB : COMPLETE BLOOD COUNT , BASIC METABOLIC PANEL IN 1 WEEK Current Hospital Diet Patient's current hospital diet: AHA Diet (Heart Healthy), Low Sodium Diet (2gm Na), Diabetes Type 2 Diet Discharge Diet Recommended Diet: Low Sodium Diet (2gm Na), Diabetes Type 2 Diet Procedures Procedures Performed: Left Foot Metatarsal Amputation 5th, 4th, and 3rd Toe Pending Studies Studies pending at discharge: yes List of pending studies: COMPLETE BLOOD COUNT , BASIC METABOLIC PANEL IN 1 WEEK Laboratory Results Hemoglobin A1c Test 09/20/16 06:20 Range/Units Estimated Average Glucose 140 mg/dl Hemoglobin A1c 6.5 H 4.5-5.6 % Medical Emergencies . Who to Call and When: Medical Emergencies: If at any time you feel your situation is an emergency, please call 911 immediately. . Non-Emergent Contact Non-Emergency issues call your: Primary Care Provider . . "Provider Documentation" section prepared by Noris Neil. . Core Measure Problem Core Measures: None
[2016-12-20] MEDS: INSULIN GLARGINE SOLOSTAR 100 UNITS/ML 3 ML PEN SC SCH (20:32)
[2016-12-21 01:03] VITALS: BP 123/77; PULSE 88; TEMP 36.6; O2SAT 92
[2016-12-21 04:11] VITALS: BP 123/63; PULSE 78; TEMP 36.8; O2SAT 100
[2016-12-21 06:05] LABS: HEMATOCRIT 25.6 % (42-52); MEAN CELL VOLUME 93.4 fL (80-100); MEAN CORPUSCULAR HEMOGLOBIN 27.4 pg (25-34); MEAN CORPUSCULAR HGB CONC 29.3 g/dl (32-36); MEAN PLATELET VOLUME 10.3 fL (7.4-10.4); PLATELET COUNT 167 K/uL (130-400); RED BLOOD COUNT 2.74 M/uL (4.7-6.1)
[2016-12-21 06:43] LABS: BUN/CREATININE RATIO 21.5 (10-20); CALCIUM 9.1 mg/dl (8.5-10.1); CREATININE 1.9 mg/dl (0.60-1.40); MAGNESIUM 2.2 mg/dl (1.8-2.4); POTASSIUM 3.5 mmol/L (3.5-5.1)
[2016-12-21] MEDS: INSULIN ASPART 100 UNITS/ML 3 ML PEN SC SCH (07:00)
[2016-12-21 07:17] VITALS: BP 134/75; PULSE 89; TEMP 36.4; O2SAT 100
[2016-12-21] MEDS: FERROUS SULFATE 325 MG TAB PO SCH (07:54)
[2016-12-21] MEDS: BOOST BREEZE NUTRITION DRINK 1 BOX PO SCH (07:55)
[2016-12-21] MEDS: CEROVITE ADV FORMULA TAB PO SCH (07:55)
[2016-12-21] MEDS: POTASSIUM CHLORIDE 20 MEQ TABCR PO SCH (07:56)
[2016-12-21] MEDS: CHOLECALCIFEROL 1000 INTER.UNIT TAB PO SCH (07:56)
[2016-12-21] MEDS: ASCORBIC ACID 500 MG TAB PO SCH (07:56)
[2016-12-21] MEDS: FUROSEMIDE 20 MG TAB PO SCH (07:57)
[2016-12-21] MEDS: METOPROLOL TARTRATE 25 MG TAB PO SCH (07:57)
--- NOTE | 2016-12-21 09:06 | Surgery Progress Note ---
Surgery Progress Note Date of Service Dec 21, 2016. Subjective Post OP Day: 5 No complaints wound vac placed Objective Vital Signs: Date Time Temp Pulse Resp B/P (MAP) Pulse Ox O2 Delivery O2 Flow Rate FiO2 12/21/16 07:17 36.4 89 22 134/75 (94) 100 Nasal Cannula 3.0 12/21/16 04:11 36.8 78 24 123/63 (83) 100 Nasal Cannula 2.0 12/21/16 04:00 Nasal Cannula 2.0 Humidified Oxygen 12/21/16 01:03 36.6 88 21 123/77 (92) 92 Nasal Cannula 2.0 12/21/16 00:00 Nasal Cannula 2.0 Humidified Oxygen 12/20/16 21:00 36.4 84 18 132/71 (91) 94 Room Air 12/20/16 20:00 Nasal Cannula 2.0 Humidified Oxygen 12/20/16 16:19 95 Nasal Cannula 2.0 12/20/16 15:43 36.4 88 22 117/74 (88) 96 Room Air 12/20/16 12:27 95 Nasal Cannula 2.0 12/20/16 10:58 36.0 78 18 129/77 (94) 95 Nasal Cannula 2.0 Incision(s): intact (wound vac left foot) Laboratory Results: Results Past 24 Hours Test 12/20/16 12:14 12/20/16 12:20 12/20/16 16:16 12/20/16 20:21 Range/Units Sodium Level 136 136-145 mmol/L Potassium Level 4.0 3.5-5.1 mmol/L Chloride Level 99 98-107 mmol/L Carbon Dioxide Level 29 21-32 mmol/L Anion Gap 8.0 3-11 mmol/L Blood Urea Nitrogen 40 7-18 mg/dl Creatinine 1.90 0.60-1.40 mg/dl Est Creatinine Clear Calc Drug Dose 27.7 ml/min Estimated GFR () 35.7 Estimated GFR (Non- 30.8 BUN/Creatinine Ratio 21.2 10-20 Random Glucose 163 70-99 mg/dl Calcium Level 9.2 8.5-10.1 mg/dl Bedside Glucose 162 192 215 70-99 mg/dl Test 12/21/16 05:41 Range/Units White Blood Count 5.20 4.8-10.8 K/uL Red Blood Count 2.74 4.7-6.1 M/uL Hemoglobin 7.5 14.0-18.0 g/dL Hematocrit 25.6 42-52 % Mean Corpuscular Volume 93.4 80-100 fL Mean Corpuscular Hemoglobin 27.4 25-34 pg Mean Corpuscular Hemoglobin Concent 29.3 32-36 g/dl RDW Standard Deviation 71.5 36.4-46.3 fL RDW Coefficient of Variation 21.6 11.5-14.5 % Platelet Count 167 130-400 K/uL Mean Platelet Volume 10.3 7.4-10.4 fL Sodium Level 137 136-145 mmol/L Potassium Level 3.5 3.5-5.1 mmol/L Chloride Level 97 98-107 mmol/L Carbon Dioxide Level 32 21-32 mmol/L Anion Gap 8.0 3-11 mmol/L Blood Urea Nitrogen 41 7-18 mg/dl Creatinine 1.90 0.60-1.40 mg/dl Est Creatinine Clear Calc Drug Dose 34.9 ml/min Estimated GFR () 35.7 Estimated GFR (Non- 30.8 BUN/Creatinine Ratio 21.5 10-20 Random Glucose 105 70-99 mg/dl Calcium Level 9.1 8.5-10.1 mg/dl Magnesium Level 2.2 1.8-2.4 mg/dl Assessment & Plan s/p transmet amputation left 3-5 toes ok for d/c from surgical standpoint f/u with Wound clinic f/u Dr. Brandyn diazn
--- NOTE | 2016-12-21 10:14 | CARDIOLOGY PROGRESS NOTE ---
DATE: 12/21/2016 The patient seen and examined. Chart, medications, telemetry reviewed. SUBJECTIVE: The patient feels weak and fatigued, only fair appetite. Denies any chest pain. Notes no worsening shortness of breath. OBJECTIVE: VITAL SIGNS: Heart rate is 78, blood pressure is 134/75. Telemetry reveals atrial fibrillation with controlled ventricular response rate. Complex ventricular ectopy. HEENT: Normocephalic, atraumatic. NECK: Thin. There is no jugular venous distention. LUNGS: Notable for diminished breath sounds but are predominantly clear. CARDIOVASCULAR: Irregularly irregular. There is no S3 gallop. ABDOMEN: Soft. EXTREMITIES: Reveal 1 to 2+ lower extremity edema. LABORATORY DATA: Hemoglobin 7.5. Sodium is 137, potassium is 3.5, chloride is 97, bicarbonate is 32, BUN is 41, creatinine is 1.9. IMPRESSION: Complex 86-year-old male with history of issues as follows: 1. Status post transmetatarsal amputation for a nonhealing foot wound. 2. Chronic atrial fibrillation with poor anticoagulation candidate. 3. History of moderate left ventricular dysfunction, EF of 35-40%. 4. Ischemic heart disease. 5. Aortic valve replacement in 2007. 6. Moderate mitral insufficiency. 7. History of biventricular heart failure, clinically improved. 8. Marked hypoalbuminemia secondary to chronic illnesses. RECOMMENDATIONS: We will continue current dosing of furosemide 20 mg twice per day. Would have low threshold for transfusing this gentleman now with hemoglobin dropping to 7.5, underlying ischemic heart disease, poor skin turgor and hypoalbuminemia.
[2016-12-21 10:55] VITALS: BP 134/75; PULSE 89; TEMP 36.4; O2SAT 100
[2016-12-21 11:01] VITALS: BP 120/66; PULSE 83; TEMP 36.5; O2SAT 98
--- NOTE | 2016-12-21 11:56 | Discharge Summary ---
Discharge Summary Date of Service Dec 21, 2016. Discharge Summary Admission Date: Dec 06, 2016 at 12:32 Discharge Date: Dec 21, 2016 Discharge Disposition: Rehab ([facility] ) Principal Diagnosis: CHRONIC OSTEOMYELITIS /CELLULITIS OF LEFT FOOT /ACUTE CHF Procedures: Amputation of Left foot 3rd through 5th toes Consultations: Cardiology Surgery Medication Reconciliation New Medications: Tramadol HCl (Tramadol HCl) 50 Mg Tab 25 MG PO Q6H PRN for Pain, #10 TAB Continued Medications: Ascorbic Acid (Vitamin C) 500 Mg Cap 500 MG PO DAILY Aspirin Enteric Coated (Ecotrin Or Generic) 81 Mg Tab 81 MG PO QAM, TAB Cholecalciferol (Vitamin D3) 2,000 Unit Tab 2000 UNITS PO QAM for 90 Days, TAB 3 Refills Epoetin Davian (Procrit) 10,000 [place] 01638 UNITS SQ q 2 wks for 30 Days Last dose at [facility] 11/10/16. Ferrous Sulfate (Kp Ferrous Sulfate) 325 Mg Tab 1 TAB PO TID Folic Acid (Folvite) 1 Mg Tab 1 MG PO QAM Furosemide (Lasix) 20 Mg Tab 20 MG PO BID Insulin Aspart (Novolog Flexpen) 100 Units/Ml Inj SQ ACHS SSI Insulin Glargine (Lantus) 100 Unit/Ml Inj 10 UNITS SC HS Metoprolol Tartrate (Lopressor) (Lopressor) 25 Mg Tab 25 MG PO BID, TAB Multivitamins/Minerals (Mvi With Minerals) Tab 1 TAB PO QAM, TAB Potassium Chloride (Klor-Con M20) 20 Meq Tabcr 20 MEQ PO DAILY for 30 Days [Protein Liquid] () 30 ML PO DAILY Discontinued Medications: Furosemide (Furosemide) 20 Mg Tab 2 MG PO DAILY PRN for SOB or worsening edema for 30 Days Extra dose in afternoon or evening PRN for SOB or worsening edema. Heparin Sod (Porcine) (Heparin Sodium) 5,000 Unit/0.5 Ml Inj 5000 UNIT SQ Q12 for 30 Days May discontinue when ambulatory. Piperacillin Sodium-Tazobactam (Zosyn) 1 Rosi Rosi 3.375 GM IV Q8 for 35 Days Stop date 12/17/16. Admission Information HPI (per Admitting provider): 86 year old male who was sent to the hospital as a direct admission from [facility] for volume overload. Patient has been admitted to [facility] three times recently. First was 08/20 - 09/04 for PAD with left foot gangrene and left knee septic arthritis. Patient underwent endarterectomy of the left leg and also left knee arthroscopic irrigation and debridement. Synovial fluid was positive for micrococcus species. Patient was discharged on IV Dapto and Ertapenem for 4 weeks of therapy. Patient was then readmitted 09/19 - 09/27 for severe sepsis likely due to pneumonia. While admitted, Ertapenem was changed to Zosyn and patient completed 7 days of therapy. Due to the left knee septic arthritis and gangrene left toe infection, patient was discharged on IV Dapto to complete the initial 4 weeks of therapy. On 10/19, patient underwent left 3rd toe amputation by Dr. Jefferson. Post operatively, the patient developed increased redness and drainage and was readmitted to [facility] 11/05 - 11/11 for wound infection / ongoing osteomyelitis. Wound culture grew E. Coli and Pseudomonas and patient was discharged on Zosyn to complete treatment on 12/17. Patient reports increasing shortness of breath for the past couple of weeks. He also has had worsening lower extremity edema and orthopnea to point where he is sleeping in a recliner. His diuretics have been titrated up and he was seen by cardiology as an outpatient. Despite this, his symptoms continue to worsen. He started to require oxygen about one week ago. Patient denies chest pain or palpitations. No lightheadedness, dizziness, diaphoresis, or syncopal events. He reports his appetite has been fair. He denies abdominal pain, nausea, vomiting, or diarrhea. No urinary symptoms. He denies fever and chills. His left 5th toe has developed eschar and he has an ulcer on the plantar surface of the left foot. He was seen by Dr. Ahumada who is planning on amputating the toe next week. He continues to be on IV Zosyn. Physical Exam (per Admitting): General Appearance: no apparent distress Head: normocephalic Eyes: normal inspection, sclerae normal ENT: hearing grossly normal Neck: supple Respiratory/Chest: no respiratory distress, + decreased breath sounds, + pertinent finding (able to speak in full sentences, noted orthopnea with minimal decrease of the HOB ) Cardiovascular: regular rate, rhythm, + pertinent finding (+3 - 4 pitting edema BLLE extending up to the thighs) Abdomen/GI: normal bowel sounds, non tender, soft, + distended Extremities/Musculoskelatal: normal inspection, no calf tenderness Neurologic/Psych: no motor/sensory deficits, alert, oriented x 3 Skin: + pertinent finding (left 5th toe with eschar; small amount of drainage between 5th and 4th toes; ulcer noted on the plantar surface of the left foot without erythema or drainage ) Hospital Course OSTEOMYELITIS OF LEFT FOOT/TOE /DRY GANGRENE s/p transmetatarsal amputation of left 3RD through 5 th toe on 12/16/[address] Collins Wound care following , may need wound vac ID following D/w Dr Morelos no indication for continuing IV Abx wound and blood cultures no growth clinically pt does not have any S/s of infection OK to discontinue IV Daptomycin and Zosyn pt will need Wound Vac and ongoing local wound care wound vac placed , [facility] has wound vac available for the pt stable to be transferred to [facility] today ACUTE ON CHRONIC SYSTOLIC CHF/BILATERAL L PLEURAL EFFUSIONS - Present with worsening shortness of breath and lower extremity edema x 2 weeks despite outpatient titration of diuretics - CXR s on admission showed BL pleural effusions - Chest US showed large effusions that were marked for possible thoracentesis - Pulmonary consulted - s/p right sided 12/08 thoracocentesis of 1400cc pleural fluid - s/p left sided 12/09 thoracentesis of 1500cc pleural fluid - was On lasix 40 mg po BID-on hold for GLEN - Continue fluid restriction - Last echo on 09/2016 showed EF 35-40% - Cardiology following -appreciate Cardiology eval ; -given Lasix 40 mg IV X1 times , then continue Lasix 20 mg PO BID -Cr improved 1.7 _> 2 -> 1.9 ( GLEN on CKD stage 3 ) chest Xray shows-Small to moderate bilateral pleural effusions have increased in size from comparison from 12/09/16 ; with bibasilar alveolar opacities suggesting atelectasis or pneumonia. Continue beta norma, asa 81 mg stable to be discharged to [facility] on with PO Lasix repeat BMP in 1 week ACUTE BLOOD LOSS ANEMIA : Hb 7.5 getting transferred to [facility] today repeat CBC as out pt will need PRBC tx if Hb < 7 GLEN ON CKD STAGE 3 : due to diuresis ; Cr remains stable 2-> 1.9 -> .19 Lasix resumed repeat BMP as out pt HX OF CHRONIC AFIB ; cont on beta norma not a candidate for anticoagulation due to bleeding complications ( epistaxis ) and fall risk HEMATURIA : resolved due to trauma from Lynn catheter Urology consulted -appreciate input DM type 2 recent Hba1c 6.5 on 09/2016 Lantus + SSI Stg II Sacral Decub-POA, Optifoam applied, EHOB mattress. Continue daily wound care Wound care consulted Abdominal bruising -From subQ heparin -Ultrasound showed soft tissue contusion of lower abdominal wall and a 1.6 x 1.2 x 0.5 cm slightly complex subcutaneous fluid collection likely small hematoma. DVT PROPHYLAXIS moderate to high risk scd /teds pharmacological anticoagulation avoided due to anemia /thrombocytopenia / abdominal wall hematoma CODE STATUS DNR DISPOSITION : stable to be transferred to [facility] for SNF today Consultants: Cardiology Surgery ID Pulmonology Procedures: Amputation of Left foot 3rd through 5th toes DISPOSITION will need SNF -referral made to [facility] transfer to [facility] today Total time spent on discharge = 35 MINS This includes examination of the patient, discharge planning, medication reconciliation, and communication with other providers. Discharge Instructions Discharge Instructions Date of Service Dec 20, 2016. Admission Reason for Admission: Pe, Volume Overload Discharge Discharge Diagnosis / Problem: CHRONIC OSTEOMYELITIS /CELLULITIS OF LEFT FOOT / ACUTE CHF Discharge Goals Goal(s): Decrease discomfort, Increase independence, Improve disease control, Diagnostic testing, Therapeutic intervention Activity Recommendations Activity Level: Assistance Required Therapies: Physical Therapy, Occupational Therapy Weightbearing Status: Right non-weightbearing . Additional Information Patient informed of condition: Yes Advance Directives: Yes DNR: Yes Level of Care: Skilled Communicable Disease: No Prognosis: Stable Lynn Catheter: No Instructions / Follow-Up Instructions / Follow-Up FOLLOW UP WITH PHYSICIAN AT THE MEDICAL CENTER REPEAT LAB : COMPLETE BLOOD COUNT , BASIC METABOLIC PANEL IN 1 WEEK Current Hospital Diet Patient's current hospital diet: AHA Diet (Heart Healthy), Low Sodium Diet (2gm Na), Diabetes Type 2 Diet Discharge Diet Recommended Diet: Low Sodium Diet (2gm Na), Diabetes Type 2 Diet Procedures Procedures Performed: Left Foot Metatarsal Amputation 5th, 4th, and 3rd Toe Pending Studies Studies pending at discharge: yes List of pending studies: COMPLETE BLOOD COUNT , BASIC METABOLIC PANEL IN 1 WEEK Laboratory Results Hemoglobin A1c Test 09/20/16 06:20 Range/Units Estimated Average Glucose 140 mg/dl Hemoglobin A1c 6.5 H 4.5-5.6 % Medical Emergencies . Who to Call and When: Medical Emergencies: If at any time you feel your situation is an emergency, please call 911 immediately. . Non-Emergent Contact Non-Emergency issues call your: Primary Care Provider . . "Provider Documentation" section prepared by Noris Neil. . Core Measure Problem Core Measures: None
== END 2016-12-21 11:35 | DRG 239 ==
LOC: UNDOADMIN 12:00 → C.2E 12:00
PROVIDERS: ADMIT Internal Medicine; ATTEND Hospitalist
PROC: 0W993ZZ Drainage of Right Pleural Cavity, Percutaneous Approach (ICD-10-PCS; 2016-12-08)
PROC: 0W9B3ZZ Drainage of Left Pleural Cavity, Percutaneous Approach (ICD-10-PCS; 2016-12-09)
PROC: 0Y6N0ZF Detachment at Left Foot, Partial 5th Ray, Open Approach (ICD-10-PCS; principal; 2016-12-16 08:00)
PROC: 0Y6N0ZD Detachment at Left Foot, Partial 4th Ray, Open Approach (ICD-10-PCS; principal; 2016-12-16 08:00)
PROC: 0Y6N0ZC Detachment at Left Foot, Partial 3rd Ray, Open Approach (ICD-10-PCS; principal; 2016-12-16 08:00)
PROC: 02H633Z Insertion of Infusion Device into Right Atrium, Percutaneous Approach (ICD-10-PCS; 2016-12-19)
DX: I13.0 Hypertensive heart and chronic kidney disease with heart failure and stage 1 through stage 4 chronic kidney disease, or unspecified chronic kidney disease (principal); I50.23 Acute on chronic systolic (congestive) heart failure; M86.372 Chronic multifocal osteomyelitis, left ankle and foot; D62 Acute posthemorrhagic anemia; N17.9 Acute kidney failure, unspecified; I96 Gangrene, not elsewhere classified; E11.52 Type 2 diabetes mellitus with diabetic peripheral angiopathy with gangrene; L03.116 Cellulitis of left lower limb; E11.621 Type 2 diabetes mellitus with foot ulcer; Z95.2 Presence of prosthetic heart valve; E11.40 Type 2 diabetes mellitus with diabetic neuropathy, unspecified; I48.2 Chronic atrial fibrillation; I65.29 Occlusion and stenosis of unspecified carotid artery; E78.5 Hyperlipidemia, unspecified; N18.3 Chronic kidney disease, stage 3 (moderate); I34.0 Nonrheumatic mitral (valve) insufficiency; E11.21 Type 2 diabetes mellitus with diabetic nephropathy; I73.9 Peripheral vascular disease, unspecified; Z87.891 Personal history of nicotine dependence; I25.10 Atherosclerotic heart disease of native coronary artery without angina pectoris; L89.152 Pressure ulcer of sacral region, stage 2; R31.0 Gross hematuria; Y84.6 Urinary catheterization as the cause of abnormal reaction of the patient, or of later complication, without mention of misadventure at the time of the procedure; Y92.239 Unspecified place in hospital as the place of occurrence of the external cause

== ENCOUNTER → 2016-12-06 | Outpatient (CLI) | payer OTHER, MEDICARE ==
[~2016-12-06] MED LIST changes: +ACET-1311 PO; +ASCO1CAP3 PO; +EPGI10M SQ; +HPRIS5M SQ; +LSX20 PO; +MCRK20 PO; -NVLG SC; +NVLGI/PEN SQ; +NVLRB SQ; +NYSS5 PO; -OXYC-57 PO; +PIPE2SOL IV; -POTA10CA28 PO; +PROTEIN PO; +ULT50X PO
[2016-12-06 10:49] LABS: BASO % 0.5 %; BASO ABS # 0.02 K/uL (0-0.2); EOS % 2.3 %; HEMATOCRIT 31.7 % (42-52); IG% 0.2 %; LYMPH % 15.3 %; LYMPH ABS # 0.67 K/uL (1.2-3.4); MEAN CELL VOLUME 92.4 fL (80-100); MEAN CORPUSCULAR HEMOGLOBIN 27.4 pg (25-34); MEAN CORPUSCULAR HGB CONC 29.7 g/dl (32-36); MONO % 10.5 %; NEUT % 71.2 %; PLATELET COUNT 135 K/uL (130-400); RED BLOOD COUNT 3.43 M/uL (4.7-6.1); WHITE BLOOD COUNT 4.38 K/uL (4.8-10.8)
[2016-12-06 10:58] LABS: BLOOD UREA NITROGEN 41 mg/dl (7-18); BUN/CREATININE RATIO 21.5 (10-20); CARBON DIOXIDE 31 mmol/L (21-32); CHLORIDE 99 mmol/L (98-107); GLUCOSE 97 mg/dl (70-99); POTASSIUM 3.2 mmol/L (3.5-5.1); SODIUM 138 mmol/L (136-145)
[2016-12-06 11:19] LABS: ANISOCYTOSIS PRESENT; COMPLETE YES; TEAR DROP CELLS 1+
--- NOTE | 2016-12-24 13:07 | CODING QUERY MEDICAL NECESSITY ---
SUPPORTING DIAGNOSIS NEEDED Dr. Patel, A supporting diagnosis is required for the test/procedure performed on this patient in order for us to be reimbursed by the patient's insurance. Please provide a supporting diagnosis for the following test/procedure listed below next to the test name along with your signature. *If there is no additional diagnosis for this patient that would support the following test/procedure please document that below next to the test/procedure. Test(s)/Procedure(s) that require a supporting diagnosis: * ([id number]) VITAMIN D ASSAY DIAGNOSIS: DATE OF SERVICE: 12/06/16 Provider Signature: Date: Thank you Leo Garcia [facility] Information Management Once completed, please kindly fax back to [phone] For questions please call [phone]
== END ==
LOC: C.LABCC 09:37 → EDSTATUS 12-21 11:58
PROVIDERS: ATTEND Internal Medicine
DX: M86.9 Osteomyelitis, unspecified (principal)

== ENCOUNTER → 2016-12-28 | Outpatient (CLI) | payer OTHER, MEDICARE ==
[~2016-12-28] MED LIST changes: +ACET-1311 PO; +ASCO1CAP3 PO; +NVLGI/PEN SQ; +PROTEIN PO; +ULT50X PO
[2016-12-28 08:48] LABS: HEMATOCRIT 25.4 % (42-52); MEAN CELL VOLUME 94.8 fL (80-100); MEAN CORPUSCULAR HEMOGLOBIN 29.5 pg (25-34); MEAN CORPUSCULAR HGB CONC 31.1 g/dl (32-36); MEAN PLATELET VOLUME 10.3 fL (7.4-10.4); PLATELET COUNT 158 K/uL (130-400); RED BLOOD COUNT 2.68 M/uL (4.7-6.1); WHITE BLOOD COUNT 4.92 K/uL (4.8-10.8)
[2016-12-28 09:00] LABS: BLOOD UREA NITROGEN 45 mg/dl (7-18); BUN/CREATININE RATIO 28.2 (10-20); CALCIUM 8.3 mg/dl (8.5-10.1); CARBON DIOXIDE 33 mmol/L (21-32); CHLORIDE 101 mmol/L (98-107); GLUCOSE 64 mg/dl (70-99); POTASSIUM 3.4 mmol/L (3.5-5.1); SODIUM 141 mmol/L (136-145)
[2016-12-28 09:03] LABS: TOTAL IRON BINDING CAPACITY 275 mcg/dl (250-450)
== END | disposition home or self-care (01) ==
LOC: C.LABCC 08:32
PROVIDERS: ATTEND Internal Medicine
DX: M86.9 Osteomyelitis, unspecified (principal); I50.9 Heart failure, unspecified

== ENCOUNTER 2017-01-26 12:13 | Inpatient (IN) | payer OTHER, MEDICARE ==
[2017-01-26] VITALS (16 sets, daily range): BP systolic 104–131; BP diastolic 43–74; PULSE 89–110; TEMP 36.3–36.7; O2SAT 90–100; BMI 23.9
[~2017-01-26] VITALS: Ht 177.8 cm; Wt 73.2 kg
[~2017-01-26 12:13] MED LIST changes: -ACET-1256 PO; -ACET-1311 PO; -FOLI1TAB7 PO; +FOLI1TAB8 PO; -HPRIS5M SQ; +LINE1TAB2 PO; -LSX20 PO; -NVLRB SQ; -NYSS5 PO; -PIPE2SOL IV
[2017-01-26] MEDS ORDERED: ACETAMINOPHEN 325 MG TAB PO PRN (13:45)
[2017-01-26] MEDS ORDERED: FINA5TAB4 PO (15:01)
[2017-01-26] MEDS ORDERED: ONDA4TAB10 SL (15:01)
[2017-01-26] MEDS ORDERED: [UNRECOGNIZED DRUG - CODE] TOP (15:01)
[2017-01-26] MEDS ORDERED: ACET-1311 PO (15:01)
[2017-01-26] MEDS ORDERED: FURO40TA3 PO (15:01)
[2017-01-26] MEDS ORDERED: DOCU-94 PO (15:01)
[2017-01-26 15:06] LABS: ALT/SGPT 33 U/L (12-78); BLOOD UREA NITROGEN 89 mg/dl (7-18); BUN/CREATININE RATIO 40.4 (10-20); CALCIUM 8.6 mg/dl (8.5-10.1); CARBON DIOXIDE 20 mmol/L (21-32); CHLORIDE 95 mmol/L (98-107); CREATININE 2.19 mg/dl (0.60-1.40); GLUCOSE 233 mg/dl (70-99); POTASSIUM 4.5 mmol/L (3.5-5.1); SODIUM 133 mmol/L (136-145)
[2017-01-26 15:09] LABS: ALB/GLOB RATIO 0.4 (0.9-2); ALKALINE PHOSPHATASE 94 U/L (45-117); AST/SGOT 20 U/L (15-37)
[2017-01-26] MEDS ORDERED: GLUCOSE 10 TABS/TUBE PO PRN (15:15)
[2017-01-26] MEDS ORDERED: DEXTROSE 50% 50 ML SYR IV PRN (15:15)
[2017-01-26] MEDS ORDERED: GLUCAGON FOR INJ 1 MG VIAL SQ PRN (15:15)
[2017-01-26] MEDS ORDERED: GLUCOSE 40% GEL 15 GM TUBE PO PRN (15:15)
[2017-01-26 15:19] LABS: HEMATOCRIT 17.2 % (42-52); MEAN CORPUSCULAR HEMOGLOBIN 29.2 pg (25-34); MEAN CORPUSCULAR HGB CONC 31.4 g/dl (32-36); MEAN PLATELET VOLUME 11.8 fL (7.4-10.4); PLATELET COUNT 44 K/uL (130-400); RED BLOOD COUNT 1.85 M/uL (4.7-6.1); WHITE BLOOD COUNT 4.01 K/uL (4.8-10.8)
[2017-01-26 15:48] LABS: CKMB/CK RATIO 10.4 (0-3.0); MAGNESIUM 2.2 mg/dl (1.8-2.4)
--- NOTE | 2017-01-26 16:29 | History and Physical ---
History & Physical Date & Time of Service: Jan 26, 2017 at 14:11 Chief Complaint: Low Hemoglobin Primary Care Physician: Angus Bach History of Present Illness Source: patient, family Pt is 86 y/o M with PMH of chronic systolic HF, a-fib, DM II, HTN, CKD stage III , chronic anemia who presents direct admission from [facility] with c/o anemia with out pt HGB: 5.9. ferritin 102, iron 273 on 01/25/17. Daughter states thinks pt has had transfusion in past. Reports was on procrit in past, unsure when last received that. States past couple of days more SOB, waking up at night feeling SOB, sits up and approx 5 minutes later feels better. Was on lasix 20mg BID and couple weeks ago changed to 40mg in am and 20mg in evening and daughter reports much improvement of bilateral LE edema. Daughter states that past 3 days pt more tired and generalized weakness than usual and sleeping more often. Also states past 3 days with nausea and vomiting and pt hasn't been eating and drinking. Seen by Dr Narvaez yesterday and had labs at that time. He was started on Zofran. States was able to retain bottle of Gatorade today. Denies abdominal pain, CP, fever/chills, diaphoresis, epistaxis, hematemesis, melena, hematochezia, diarrhea, DUFF, dizziness, syncope,neck pain, cough, palpitations, sore throat, choking, otalgia, rhinorrhea, paresthesias, urinary symptoms. Pt with Hx several admissions over past several months. Most recent 12/06/16 for volume overload. At that time HGB was 8.7 and 7.5. Had recent Left toes amputated and pt has wound vac in place and was to have wound clinic evaluation today. Hx admission 08/20/16 for PAD with L foot gangrene, L knee septic arthritis. Admission 09/19/16 for sepsis likely d/t pneumonia and admission for continued osteomyelitis. Pt currently on linezolid. Hx echo 08/29/16: EF 45-50% Past Medical/Surgical History Medical Problems: (1) Aortic stenosis Permanent Comment: s/p AVR Status: Chronic (2) Atrial fibrillation Status: Chronic (3) Carotid arterial disease Status: Chronic (4) CKD (chronic kidney disease), stage III Status: Chronic (5) Diabetes mellitus, type 2 Status: Chronic (6) Diabetic peripheral neuropathy associated with type 2 diabetes mellitus Status: Chronic (7) Dyslipidemia Status: Chronic (8) History of adenomatous polyp of colon Status: Chronic (9) History of diabetic ulcer of foot Status: Chronic (10) Hypertension Status: Chronic (11) Peripheral vascular disease Status: Chronic (12) Rheumatoid arthritis Status: Chronic (13) Septic joint of left knee joint Status: Resolved (14) Systolic and diastolic CHF, chronic Permanent Comment: echo 09/2016 - EF 35-40% Status: Chronic Surgical Problems: (1) Status post amputation of toe of left foot Permanent Comment: 3rd toe Status: Chronic (2) Status post amputation of toe of right foot Permanent Comment: right 2nd toe Status: Chronic (3) Status post aortic valve replacement with bioprosthetic valve Status: Chronic (4) Status post cataract extraction Status: Chronic (5) Status post cholecystectomy Status: Chronic (6) Status post coronary artery bypass grafting Permanent Comment: 2007 Status: Chronic Family History Cancer BROTHER SISTER Coronary artery disease FATHER Kidney disease BROTHER Social History Smoking Status: Former Smoker Smokeless Tobacco Use: No Alcohol Use: none Drug Use: none Marital Status: Housing status: lives with family, residential Occupational Status: retired Immunizations History of Influenza Vaccine: Yes Influenza Vaccine Date: Feb 06, 2016 History of Tetanus Vaccine?: Yes Tetanus Immunization Date: May 22, 2009 History of Pneumococcal: Yes Pneumococcal Date: Feb 06, 2016 Multi-Drug Resistant Organisms History of MDRO: No Allergies Coded Allergies: HERMAN Inhibitors (Verified Allergy, Intermediate, UNKNOWN, 11/05/16) Lisinopril (Verified Adverse Reaction, Unknown, COUGHING, 11/05/16) Home Medications Scheduled Acetaminophen (Tylenol), 2 TABS PO Q6 Ascorbic Acid (Vitamin C), 500 MG PO DAILY Aspirin Enteric Coated (Ecotrin Or Generic), 81 MG PO QAM Capsaicin (Arthritis Pain Relieving), TOP QID Cholecalciferol (Vitamin D3), 2,000 UNITS PO QAM Docusate Sodium (Colace), 1 CAP PO BID Epoetin Davian (Procrit), 10,000 UNITS SQ q 2 wks Ferrous Sulfate (Kp Ferrous Sulfate), 1 TAB PO TID Finasteride (Proscar), 1 TAB PO DAILY Folic Acid (Folvite), 1 MG PO QAM Furosemide (Lasix), 20 MG PO DAILY Furosemide (Lasix), 40 MG PO DAILY Insulin Aspart (Novolog Flexpen), SQ ACHS Insulin Glargine (Lantus), 10 UNITS SC HS Linezolid (Linezolid), 600 MG PO BID Metoprolol Tartrate (Lopressor) (Lopressor), 25 MG PO BID Multivitamins/Minerals (Mvi With Minerals), 1 TAB PO QAM Ondasetron Odt (Zofran Odt), 4 MG SL Q8 Potassium Chloride (Klor-Con M20), 20 MEQ PO DAILY [Protein Liquid], 30 ML PO DAILY Review of Systems See HPI for pertinent positives & negatives. All other systems reviewed and were otherwise negative Physical Exam General Appearance: no apparent distress (chronic ill appearing) Head: normocephalic, atraumatic Eyes: normal inspection, PERRL, EOMI, sclerae normal, + pertinent finding ( pale conjunctiva) ENT: hearing grossly normal, pharynx normal Neck: supple, no JVD, trachea midline Respiratory/Chest: chest non-tender, lungs clear, normal breath sounds, no respiratory distress, no accessory muscle use Cardiovascular: + systolic murmur, + irregularly irregular Abdomen/GI: normal bowel sounds, non tender, soft Extremities/Musculoskelatal: non-tender, + pedal edema (2+bilateral LE. right 5th toe dorsal surface with abrasion. left anterior lower leg with small skin tear without surrounding erythema or discharge. left foot with wound vac in place to lateral foot over 3-5 toe amputation site; distal pulses intact) Neurologic/Psych: alert (but sleepy, oriented to person and place) Skin: no rash, + pertinent finding (pale color, decubitus ulcer) Diagnostics Laboratory Results Last 24 Hours Test 01/26/17 14:17 01/26/17 14:41 01/26/17 14:42 White Blood Count 4.01 K/uL Red Blood Count 1.85 M/uL Hemoglobin 5.4 g/dL Hematocrit 17.2 % Mean Corpuscular Volume 93.0 fL Mean Corpuscular Hemoglobin 29.2 pg Mean Corpuscular Hemoglobin Concent 31.4 g/dl RDW Standard Deviation 60.8 fL RDW Coefficient of Variation 18.4 % Platelet Count 44 K/uL Mean Platelet Volume 11.8 fL Nucleated RBC Absolute Count (auto) 0.03 K/uL Nucleated Red Blood Cells % 0.7 % Sodium Level 133 mmol/L Potassium Level 4.5 mmol/L Chloride Level 95 mmol/L Carbon Dioxide Level 20 mmol/L Anion Gap 18.0 mmol/L Blood Urea Nitrogen 89 mg/dl Creatinine 2.19 mg/dl Estimated GFR () 30.1 Estimated GFR (Non- 25.9 BUN/Creatinine Ratio 40.4 Random Glucose 233 mg/dl Calcium Level 8.6 mg/dl Total Bilirubin 0.4 mg/dl Aspartate Amino Transf (AST/SGOT) 20 U/L Alanine Aminotransferase (ALT/SGPT) 33 U/L Alkaline Phosphatase 94 U/L Total Protein 7.2 gm/dl Albumin 2.2 gm/dl Globulin 5.0 gm/dl Albumin/Globulin Ratio 0.4 Lipase 74 U/L Magnesium Level 2.2 mg/dl Total Creatine Kinase 25 U/L Creatine Kinase MB 2.6 ng/ml Creatine Kinase MB Ratio 10.4 Troponin I 0.125 ng/ml EKG EKG: Atrial fibrillation rate 96 T wave inversion III, AVF, increased T wave inversion to lateral leads Impression Assessment and Plan ANEMIA Pt with hx chronic anemia with new onset HGB <8. Yesterday HGB 5.9 and pt was sent for direct admission. Today H/H: 5.4/17.2. Vitals stable Denies active bleeding or melena, hematochezia or hematemesis. Hx Procrit Q2 weeks in past. unsure when last given. -Type & Cross and Transfuse 2 units PRBC, with 40mg lasix in between units -H&H 3-4 hrs after transfusion -NPO after midnight -GI consult -continue ferrous sulfate, folic acid NAUSEA/VOMITING Normal lipase, normal LFTs. No abdominal pain -zofran prn -clear liquids -continue to monitor, may need to consider imaging CHRONIC SYSTOLIC HF lungs clear at this time. reports improvement of LE edema from previous -continue po lasix -daily weights -echo 08/29/16 EF: 45-50% A-FIB -rate 96 and controlled on beta norma -continue metoprolol -pt hx Coumadin in past, but was d/c due to epistaxis and hx falls CAD No CP. Troponin 0.125 -will trend cardiac enzymes -repeat EKG in am -continue metoprolol HX L TOE AMPUTATIONS AND SACRAL DECUBITUS ULCER -pt has wound vac in place -wound consult -ERICA clancy -continue linezolid DM -HgbA1c 6.3 on 01/25/17 -Lantus as per home -NovoLog sliding scale CKD -baseline CR 1.8-1.9. Today CR: 2.1 -continue to monitor -avoid nephrotoxic agents -nephrology consult DVT PROPHYLAXIS - DISPOSITION -admit tele -DNR as per discussion with pt, daughter -Follows with Dr Narvaez for routine care Pt was seen with Dr Obando. See addendum ADDENDUM: Saw/examined the patient in room 215 - he is very lethargic and tired; arouses to stimuli, but goes back to sleep Spoke with daughter; states that he had been on Procrit q2 weeks as per nephrology - unsure if he had been receiving this at [facility] Sent over due to Hgb < 6 He has also been having +nausea, vomiting x 3days No known active bleeding, no melena, hematochezia Clinically he is dry, lethargic No abdominal tenderness to palpation, normoactive bowel sounds Hgb here is 5.4 will type and cross three units transfuse two units with lasix in between the doses monitor for overload recheck H/H 4 hours post-transfusion GI and nephrology input appreciated Level of Care Telemetry Resuscitation Status DO NOT RESUSCITATE VTE Prophylaxis VTE Risk Assessment Done? Y/N: Yes Risk Level: Moderate Given or contraindicated: SCD's
[2017-01-26] MEDS ORDERED: FUROSEMIDE INJ 40 MG in SYRINGE 0 ML IV SCH (16:30)
[2017-01-26 16:36] LABS: INR 1.4 (0.9-1.1); PARTIAL THROMBOPLASTIN RATIO 1.1; PROTHROMBIN TIME (PATIENT) 15.7 SECONDS (9.0-12.0)
--- NOTE | 2017-01-26 16:44 | DIAGNOSTIC IMAGING REPORT ---
SINGLE VIEW CHEST CLINICAL HISTORY: CHF. FINDINGS: An AP, portable, upright chest radiograph is compared to study dated 12/19/2016 and correlated with chest CT dated 02/06/2008. The examination is degraded by portable technique and patient rotation. A right PICC line has been removed from previous. The patient is status post midline sternotomy and cardiac valve surgery. The heart is enlarged and there is atherosclerotic calcification of the thoracic aorta. There is pulmonary vascular congestion and interstitial edema. There are layering pleural effusions with bibasilar consolidation. No pneumothorax is seen. The skeletal structures are osteopenic. The bony thorax is grossly intact. IMPRESSION: 1. Cardiomegaly with evidence of congestive failure and interstitial edema. 2. There are layering pleural effusions with bibasilar consolidation which likely represents atelectasis. Correlate clinically for evidence of superimposed pneumonia. Electronically signed by: Julian Hernández M.D. 01/26/2017 4:42 PM Dictated Date/Time: 01/26/2017 4:41 PM
[2017-01-26] MEDS: INSULIN ASPART 100 UNITS/ML 3 ML PEN SC SCH ×2 (17:25→21:05)
--- NOTE | 2017-01-26 17:46 | Gastrointestinal Consultation ---
Gastrointestinal Consultation Date of Consultation: Jan 26, 2017 Attending Physician: Lamonte Obando Consulting Physician: Seferino Dodd Reason for Consultation: Anemia History of Present Illness Patient is a 86 year old male who presented as direct admit for anemia. He is sleeping, doesn't wake up much. Dght (Alia) at bedside. History obtained from Alia and admission H&P, chart review. He has PMH of chronic systolic HF, a-fib, DM II, HTN, CKD stage III, chronic anemia. He's been admitted 3 times since August for PAD complications including L food gangrene, s/p L toes amputation, wound VAC placement, decubitus ulcers, knee septic arthritis, pneumonia, osteomyelitis. He was recently DC'd from [facility] to home where he lives w his son. Alia reports pt had been having poor PO intake over last week. On Tuesday had N/V, but no signs of coffee ground emesis/hematemesis, also no reports of dark/tarry stools. He has f/u w PCP yesterday (Dr. Narvaez), outpt labs showed anemia H/H 5.8/18. He was thus sent to ED for direct admission. Repeat labs showed H/H 5.4/17.2. Baseline Hgb recently 8-10, INR 1.4. He is on ASA, but no other blood thinners. CMP showed Cr 2.1, usually mid 1s. He has CKD III, followed by Dr. Luo and been receiving Procrit injections, B12 and Ferrous Sulfate. LFTs unremarkable. Troponin is elevated. EKG showed Afib w possible inferior/anterior infarct. CXR showed cardiomegaly w congestive failure and interstitial edema, atelectasis. Past Medical/Surgical History Medical Problems: (1) Acute on chronic renal failure Status: Acute (2) Anemia Status: Acute (3) Cellulitis of left leg Status: Acute (4) CHF (congestive heart failure) Status: Acute (5) Hypoxia Status: Acute (6) Left-sided epistaxis Status: Acute (7) Pneumonia Status: Acute (8) Sepsis Status: Acute (9) Urinary retention Status: Acute Past Medical History: See above. Past Surgical History: As above, Aortic valve replacement, cataracts, treatment for retinopathy Family History Cancer BROTHER SISTER Coronary artery disease FATHER Kidney disease BROTHER Social History Smoking Status: Former Smoker Alcohol Use: occasionally Drug Use: none Marital Status: Occupation Status: retired Allergies Coded Allergies: HERMAN Inhibitors (Verified Allergy, Intermediate, UNKNOWN, 11/05/16) Lisinopril (Verified Adverse Reaction, Unknown, COUGHING, 11/05/16) Current Medications Home Meds and Scripts Medications Dose Route/Sig Max Daily Dose Days Date Category Dose Instructions Zofran Odt (Ondansetron HCl) 4 Mg Tab 4 Mg SL Q8 01/26/17 Reported Tylenol (Acetaminophen) 325 Mg Tab 2 Tabs PO Q6 01/26/17 Reported Arthritis Pain Relieving (Capsaicin) 0.075 % Cre TOP QID 01/26/17 Reported Apply to affected area QID prn pain Colace (Docusate Sodium) 100 Mg Cap 1 Cap PO BID 15 01/26/17 Reported Proscar (Finasteride) 5 Mg Tab 1 Tab PO DAILY 30 01/26/17 Reported Lasix (Furosemide) 40 Mg Tab 40 Mg PO DAILY 01/26/17 Reported Linezolid 600 Mg Tab 600 Mg PO BID 30 01/06/17 Rx [Protein Liquid] 30 Ml PO DAILY 12/06/16 Reported Novolog Flexpen (Insulin Aspart) 100 Units/Ml Inj SQ ACHS 12/06/16 Reported SSI Vitamin C (Ascorbic Acid) 500 Mg Cap 500 Mg PO DAILY 12/06/16 Reported Klor-Con M20 (Potassium Chloride) 20 Meq Tabcr 20 Meq PO DAILY 30 11/11/16 Rx Procrit (Epoetin Davian) 10,000 Units Inj 10,000 Units SQ Q 2 WKS 30 11/11/16 Reported Last dose at [facility] 11/10/16. Folvite (Folic Acid) 1 Mg Tab 1 Mg PO QAM 09/19/16 Reported Lantus (Insulin Glargine) 100 Unit/Ml Inj 10 Units SC HS 09/19/16 Reported Vitamin D3 (Cholecalciferol) 2,000 Unit Tab 2,000 Units PO QAM 90 09/19/16 Reported Mvi With Minerals (Multivitamins/Minerals) Tab 1 Tab PO QAM 09/19/16 Reported Lasix (Furosemide) 20 Mg Tab 20 Mg PO DAILY 09/19/16 Reported In the evening Kp Ferrous Sulfate (Ferrous Sulfate) 325 Mg Tab 1 Tab PO TID 09/19/16 Reported Lopressor (Metoprolol Tartrate) 25 Mg Tab 25 Mg PO BID 08/20/16 Reported Ecotrin Or Generic (Aspirin) 81 Mg Tab 81 Mg PO QAM 08/20/16 Reported Review of Systems Constitutional: + see HPI (Unable to obtain from pt) Physical Exam Date Time Temp Pulse Resp B/P (MAP) Pulse Ox O2 Delivery O2 Flow Rate FiO2 01/26/17 17:17 36.3 91 20 111/52 100 01/26/17 17:02 36.3 105 20 108/52 95 01/26/17 16:00 98 Room Air 01/26/17 15:06 36.7 98 16 115/66 (82) 100 Room Air 01/26/17 14:36 36.5 95 18 104/74 97 Room Air General Appearance: no apparent distress Respiratory/Chest: no respiratory distress, no accessory muscle use, + decreased breath sounds Cardiovascular: + irregularly irregular Abdomen: normal bowel sounds, non tender, soft Extremities: no pedal edema, + pertinent finding (Wound VAC to L foot, + several toes amputation on L foot) Neurologic/Psych: + pertinent finding (Asleep, ) Skin: normal color, no jaundice, no rash Laboratory Results Last 24 Hours Test 01/26/17 14:17 01/26/17 14:41 01/26/17 14:42 01/26/17 15:49 White Blood Count 4.01 K/uL Red Blood Count 1.85 M/uL Hemoglobin 5.4 g/dL Hematocrit 17.2 % Mean Corpuscular Volume 93.0 fL Mean Corpuscular Hemoglobin 29.2 pg Mean Corpuscular Hemoglobin Concent 31.4 g/dl RDW Standard Deviation 60.8 fL RDW Coefficient of Variation 18.4 % Platelet Count 44 K/uL Mean Platelet Volume 11.8 fL Nucleated RBC Absolute Count (auto) 0.03 K/uL Nucleated Red Blood Cells % 0.7 % Prothrombin Time 15.7 SECONDS Prothromb Time International Ratio 1.4 Activated Partial Thromboplast Time 28.2 SECONDS Partial Thromboplastin Ratio 1.1 Sodium Level 133 mmol/L Potassium Level 4.5 mmol/L Chloride Level 95 mmol/L Carbon Dioxide Level 20 mmol/L Anion Gap 18.0 mmol/L Blood Urea Nitrogen 89 mg/dl Creatinine 2.19 mg/dl Estimated GFR () 30.1 Estimated GFR (Non- 25.9 BUN/Creatinine Ratio 40.4 Random Glucose 233 mg/dl Calcium Level 8.6 mg/dl Total Bilirubin 0.4 mg/dl Aspartate Amino Transf (AST/SGOT) 20 U/L Alanine Aminotransferase (ALT/SGPT) 33 U/L Alkaline Phosphatase 94 U/L Total Protein 7.2 gm/dl Albumin 2.2 gm/dl Globulin 5.0 gm/dl Albumin/Globulin Ratio 0.4 Lipase 74 U/L Magnesium Level 2.2 mg/dl Total Creatine Kinase 25 U/L Creatine Kinase MB 2.6 ng/ml Creatine Kinase MB Ratio 10.4 Troponin I 0.125 ng/ml Bedside Glucose 274 mg/dl Impression Patient is a 86 year old male seen for anemia, Hgb 5.4, baseline 8-10. Will be getting blood transfusion. He has DM, PAD recently complications leading to L foot gangrene, toes amputation, L leg endarterectomy. Also w hx of AVR, heart failure. Currently Troponin elevated w evidence of congestive heart failure. He has CKD, been on B12, iron supplement, Procrit. Possible anemia from chronic disease, ? blood loss from wounds, decubitus ulcer. He is w/o davina s/s of GI bleeding. Colonoscopies 2005, 2008 w adenomatous polyps - Monitor H/H, agree w transfusion - NPO after midnight; will re-eval tomorrow if stable will discuss possible endoscopic evals. - Recommend Nephrology consult for acute on chronic kidney failure; Cardiology to workup elevated Troponin and congestive heart failure management. Plan I have seen, examined and agree with the plan as outlined by SERGIO Higginbotham as above. -exam reveals soft abd -anemia, really pancytopenia, without evidence of bleeding -Willing to do GI work up initially with EGD, per primary and care team. -Will Follow -Consider EGD tomorrow Seferino Dodd M.D.
[2017-01-26] MEDS: INSULIN GLARGINE SOLOSTAR 100 UNITS/ML 3 ML PEN SC SCH (21:04)
[2017-01-26] MEDS: LINEZOLID 600 MG TAB PO SCH (22:29)
[2017-01-26] MEDS: FERROUS SULFATE 325 MG TAB PO SCH (22:29)
[2017-01-26] MEDS: FUROSEMIDE 20 MG TAB PO SCH (23:16)
[2017-01-26] MEDS: METOPROLOL TARTRATE 25 MG TAB PO SCH (23:16)
[2017-01-27] VITALS (27 sets, daily range): BP systolic 90–125; BP diastolic 39–70; PULSE 72–106; TEMP 36.3–37; O2SAT 92–100; Ht 177.8 cm; Wt 73.2 kg
[2017-01-27 02:48] LABS: BUN/CREATININE RATIO 43.1 (10-20); CALCIUM 8.3 mg/dl (8.5-10.1); CKMB/CK RATIO 9.1 (0-3.0); CREATININE 1.97 mg/dl (0.60-1.40); POTASSIUM 3.8 mmol/L (3.5-5.1)
[2017-01-27 03:07] LABS: HEMATOCRIT 21.2 % (42-52); MEAN CELL VOLUME 90.6 fL (80-100); MEAN CORPUSCULAR HEMOGLOBIN 29.1 pg (25-34); MEAN CORPUSCULAR HGB CONC 32.1 g/dl (32-36); MEAN PLATELET VOLUME 10.7 fL (7.4-10.4); PLATELET COUNT 34 K/uL (130-400); RED BLOOD COUNT 2.34 M/uL (4.7-6.1); WHITE BLOOD COUNT 4.03 K/uL (4.8-10.8)
[2017-01-27] MEDS: FINASTERIDE 5 MG TAB PO SCH (07:49)
[2017-01-27] MEDS: ASPIRIN 81 MG ECTAB PO SCH (07:49)
[2017-01-27] MEDS: METOPROLOL TARTRATE 25 MG TAB PO SCH ×2 (07:50→20:13)
[2017-01-27] MEDS: LINEZOLID 600 MG TAB PO SCH (07:50)
[2017-01-27] MEDS: CHOLECALCIFEROL 1000 INTER.UNIT TAB PO SCH (07:50)
[2017-01-27] MEDS: FERROUS SULFATE 325 MG TAB PO SCH ×3 (07:51→20:14)
[2017-01-27] MEDS: CEROVITE ADV FORMULA TAB PO SCH (07:51)
[2017-01-27] MEDS: ASCORBIC ACID 500 MG TAB PO SCH (07:51)
[2017-01-27] MEDS: INSULIN GLARGINE SOLOSTAR 100 UNITS/ML 3 ML PEN SC SCH ×2 (07:52→22:05)
[2017-01-27] MEDS: FUROSEMIDE 40 MG TAB PO SCH (07:52)
[2017-01-27] MEDS: POTASSIUM CHLORIDE 20 MEQ TABCR PO SCH (07:53)
--- NOTE | 2017-01-27 08:08 | Clinical Documentation Query ---
QUERY 1 OF [address] RICE, In your clinical opinion is this patient being managed for: ( ) Type 2 SD/NSTEMI due to demand ischemia ( ) Not Agree ( ) Other explanation of clinical findings (Please Explain) ( ) Unable to determine (Please Define) ( ) Need to Discuss The medical record reflects the following clinical findings, treatment, and risk factors. Clinical Indicators: Trops 0.125/0.188. EKG with ST & T wave abnormality, consider lateral ischemia. Treatment: 3 U PRBC, tele, serial trops, O2 support Risk Factors: severe anemia, hx chronic systolic CHF, CKD stage III, HTN, DM QUERY 2 OF 2 In your clinical opinion is this patient being managed for: ( ) Acute kidney failure (on CKD stage III) ( ) Not Agree ( ) Other explanation of clinical findings (Please Explain) ( ) Unable to determine (Please Define) ( ) Need to Discuss The medical record reflects the following clinical findings, treatment, and risk factors. Clinical Indicators: 86 yo male presenting with anemia. BUN 89, Cr 2.19. Review of historical Cr shows baseline range of 1.4-1.6. Treatment: daily PRP's, transfusion 3 U PRBC, tele, Risk Factors: severe anemia, CKD stage III, DM II, HTN, chronic systolic CHF Please clarify and document your clinical opinion in the progress notes and discharge summary. Terms such as "probable", "suspected", "likely", "questionable", "possible", or "still to be ruled out" are acceptable. IF IN AGREEMENT, YOU MUST DOCUMENT ABOVE DIAGNOSTIC STATEMENT IN DAILY PROGRESS NOTES AND DISCHARGE SUMMARY. This document is not part of the patient's record. Thank You, Camila Contreras, LALI [phone]
--- NOTE | 2017-01-27 08:21 | NEPHROLOGY CONSULTATION ---
DATE OF CONSULTATION: 01/27/2017 ATTENDING OF RECORD: Dr. Nesbitt. REASON FOR CONSULTATION: Low hemoglobin levels. HISTORY OF PRESENT ILLNESS: This is an 86-year-old male with anemia of chronic kidney disease, on Procrit, was getting 10,000 units every 2 weeks. He was recently in the hospital from December 06 to December 21, when he had an amputation of the left foot 3rd through 5th toes. The patient was getting 10,000 units subQ every 2 weeks and was discharged to [facility]. From [facility], the patient went to [facility] and then, the patient eventually was discharged home in the beginning of January and has been home for about 9 days. The patient had blood work done and found his hemoglobin level to be down to 5.4 and brought into the hospital. The patient has been weak over the past 10 days, decreased appetite, and has a wound VAC on his left foot with no drainage. Denies any fevers or chills. Just, overall feels tired with decreased appetite and some mild constipation and shortness of breath with exertion. The patient was typed and crossed 3 units and is currently receiving his 3rd unit now. He did receive Lasix in between the units and appears to be tolerating the volume well. The patient's hemoglobin level went up to 6.8 from 5.4. Last checked at 02:00 this morning. The patient's creatinine was elevated at 2.19 and it has improved to 1.97. Troponin mildly elevated at 0.188. INR is relatively good at 1.4. GI was consulted and was recommending monitoring H&H and agreed with the transfusion of blood and placed him n.p.o. past midnight for possible endoscopic evaluations. Colonoscopies in the past were done in 2005 and 2008 with adenomatous polyps. The patient has had several hospitalizations this year. He also was admitted in August for cellulitis and peripheral artery disease, where he required endarterectomy of the left femoral artery and also required 3 units of blood in the hospital as well as long-term antibiotics through PICC line including daptomycin and ertapenem. The patient was transfused multiple times during that admission and does have underlying diabetes for many years as well as hypertension for many years. History of smoking and quit in 1969 and aortic valve replacement and CABG x2 in 2008 as well as a history of atrial fibrillation and diastolic heart failure. He does follow with Dr. Leahy for rheumatoid arthritis and has a history of skin cancer as well. When I evaluated the patient in August, I checked iron sat, ferritin, B12, folic acid and SPEP. He was on Procrit injections back in 2009 and 2010. Iron sat in August was below 20% and arranged for IV iron. Also, the SPEP came back elevated with an M-spike of 2 and it was recommended that he see hematology. Referred to anemia clinic on September 17 with a hemoglobin level of 8.5, iron sat 22%, ferritin of 349, and creatinine 1.6 with a history of MGUS with M-spike of 2 and a history of skin cancers. Hemoglobin in October 05 was 8.7 with an iron sat of 20% and now presents with a hemoglobin level of 5.8 and thrombocytopenia. The creatinine was relatively close to baseline in January 25 at 1.6, but appeared to be elevated when he came into the hospital at 2.1. REVIEW OF SYSTEMS: No Fevers or Chills. No headaches. No blurry vision. Positive lethargy. Positive fatigue. Positive shortness of breath with exertion. Denies chest pain. No nausea or vomiting. Positive anorexia. Positive constipation. No dysuria or hematuria. Positive difficulty walking and is mostly wheelchair bound at this point. All other review of systems otherwise negative. PAST MEDICAL HISTORY: Atrial fibrillation, aortic stenosis status post aortic valve replacement, CKD stage III, type 2 diabetes, hyperlipidemia, peripheral vascular disease, and both systolic and diastolic heart failure, anemia of CKD on procrit. PAST SURGICAL HISTORY: Recent amputation of toes on the left foot, still with a wound VAC; aortic valve replacement with bioprosthetic valve; cataract surgery; cholecystectomy; and CABG. FAMILY HISTORY: Significant for heart disease. SOCIAL HISTORY: Former smoker. No alcohol and no drugs. He is and lives with family. CURRENT MEDICATIONS: Aspirin 81 mg a day, Proscar 5 mg daily, folic acid 1 mg daily, multivitamin daily, potassium 20 mEq daily, vitamin C 500 mg daily, vitamin D 2000 units daily, Lasix 40 mg daily, Lantus 5 units subQ q. 12 hours, linezolid 600 mg p.o. b.i.d., Lopressor 25 mg p.o. b.i.d., iron 325 p.o. t.i.d., Lasix 20 mg daily at 5:00 p.m., and sliding scale insulin. PHYSICAL EXAMINATION: VITAL SIGNS: Temperature 37, pulse 91, respiratory rate 16, blood pressure is 106/52, and satting 100% on 2 liters. GENERAL: Awake, alert, and oriented x3. EYES: No scleral icterus. ENT: Mucous membranes are dry. NECK: Supple. PULMONARY: Decreased breath sounds at the bases. CARDIAC: 2/6 systolic murmur. ABDOMEN: Bowel sounds positive. Soft and nontender. EXTREMITIES: Left foot with a wound VAC. NEUROLOGIC: Nonfocal. DERMATOLOGIC: He does have a decubitus ulcer. He has resolving wound on his left foot that is healing up well with a wound VAC. LABORATORIES: White count is 4, last H&H 6.8 and 21.2, and platelet count 34. Sodium level is 136, potassium is 3.8, chloride is 96, bicarbonate is 28, BUN is 85, creatinine is 1.97, glucose 137 and calcium is 8.3. Troponin 0.188. CK is 22. Albumin is 2.2. INR is 1.4. Chest x-ray shows cardiomegaly with evidence of congestive failure, interstitial edema, layering pleural effusions with bibasilar consolidation, likely representing atelectasis. ASSESSMENT AND PLAN: 1. Acute kidney injury on chronic kidney disease stage III with baseline creatinine of 1.6-1.7 in the setting of advanced age, who underwent a recent amputation of his toes and has a wound VAC and wound healing up well, who presented with worsening anemia and likely has acute kidney injury in the setting of volume depletion. Creatinine was above 2 and appears to be trending down nicely with volume resuscitation. In a difficult situation though given age and comorbidities, giving blood, but also giving Lasix trying to prevent any volume overload. Chest x-ray already suggests an element of congestive heart failure; however, lung exam appears to have improved after the administration of Lasix. We will continue to try to improve volume resuscitation. We will still try to prevent any worsening congestive heart failure, difficult balance to obtain. No indication for emergent dialysis at this time. Likely GLEN worsening in the setting of intravascular volume depletion from significant anemia. 2. Anemia of chronic kidney disease. Platelet counts are normally in the 200s and white count normally in the 8s. He presents with pancytopenia with a low white count of 3.9, low hemoglobin of 5.8 and low platelets. He was on Procrit from anemia of chronic kidney disease. In the past, I did recommend a hematology referral more for followup of MGUS. The patient at that time was not interested in following hematology/oncology for the MGUS. Concerning for the thrombocytopenia, platelet counts were consistently in the 100s, last checked at January 10 at 101. He presents now 2-3 weeks later with a platelet count of 44,000 and now down to 34,000. Hemoglobin went from the to hemoglobin level of 5.4, now improving with the blood. White count not significantly decreased at this time. The patient was receiving Procrit 10,000 units every 2 weeks; however, went from home to the hospital to [facility] to [facility] and back to home. We will double check when the last dose of Procrit was. This could be anemia of chronic kidney disease with Procrit resistance; however, that would not necessarily account for the significant thrombocytopenia as well. Question if worthwhile to obtain a hematology consultation. The patient has been evaluated by Dr. Plata in the hospital in the past. I myself have only seen the patient once in the office in August of this year for anemia of chronic kidney disease. Overall, question if the patient has hematologic disorder on top of anemia of chronic kidney disease and I would like to recheck the SPEP again to see if the M-spike is worsening and we will discuss further with primary hospitalist about obtaining hematology consultation with Dr. Plata. I appreciate the consultation. KAYCEE
[2017-01-27 10:12] LABS: HEMATOCRIT 22.9 % (42-52)
--- NOTE | 2017-01-27 10:28 | Medical Consult ---
Consultation Date of Consultation: Jan 27, 2017. Attending Physician: Gallito Nesbitt MD Reason for Consultation: History of toe amputation, sacral decubitus ulcer History of Present Illness 86-year-old male well known to me from previous hospitalizations as well as [facility], with multiple medical comorbidities including diabetes mellitus, severe peripheral vascular disease, chronic kidney disease, who is status post partial amputation left foot for gangrenous changes. Patient was being followed for open wound of his left foot which was being treated with oral Zyvox and wound VAC with improvement. However over the last several days, patient has become increasingly weak, fatigued, and anorexic. One episode of nausea and vomiting. Was seen by his primary care doctor who obtain labs which showed severe anemia and patient was admitted to the hospital for further management. He is now undergoing transfusion of red blood cells. Denies any significant pain. No report of fever. Past Medical/Surgical History Medical Problems: (1) Acute on chronic renal failure Status: Acute (2) Anemia Status: Acute (3) Cellulitis of left leg Status: Acute (4) CHF (congestive heart failure) Status: Acute (5) Hypoxia Status: Acute (6) Left-sided epistaxis Status: Acute (7) Pneumonia Status: Acute (8) Sepsis Status: Acute (9) Urinary retention Status: Acute Medical Problems: (1) Anemia (2) Aortic stenosis (3) Atrial fibrillation (4) Carotid arterial disease (5) CKD (chronic kidney disease), stage III (6) Diabetes mellitus, type 2 (7) Diabetic peripheral neuropathy associated with type 2 diabetes mellitus (8) Dyslipidemia (9) History of adenomatous polyp of colon (10) History of diabetic ulcer of foot (11) Hypertension (12) Peripheral vascular disease (13) Rheumatoid arthritis (14) Septic joint of left knee joint (15) Systolic and diastolic CHF, chronic (16) Volume overload Surgical Problems: (1) Status post amputation of toe of left foot (2) Status post amputation of toe of right foot (3) Status post aortic valve replacement with bioprosthetic valve (4) Status post cataract extraction (5) Status post cholecystectomy (6) Status post coronary artery bypass grafting Family History Cancer BROTHER SISTER Coronary artery disease FATHER Kidney disease BROTHER Social History Smoking Status: Former Smoker Smokeless Tobacco Use: No Alcohol Use: none Drug Use: none Marital Status: Occupation Status: retired Allergies Coded Allergies: HERMAN Inhibitors (Verified Allergy, Intermediate, UNKNOWN, 11/05/16) Lisinopril (Verified Adverse Reaction, Unknown, COUGHING, 11/05/16) Current Inpatient Medications Current Inpatient Medications Medications (Trade) Dose Ordered Sig/Rosemarie Route Start Time Stop Time Status Last Admin Dose Admin Acetaminophen (Tylenol Tab) 650 mg Q4H PRN PO 01/26/17 13:45 02/25/17 13:44 Ondansetron HCl (Zofran Inj) 4 mg Q6H PRN IV 01/26/17 15:00 02/25/17 14:59 Insulin Glargine (Lantus Solostar Pen) 5 units Q12 SC 01/26/17 21:00 02/25/17 20:59 01/27/17 07:52 5 UNITS Insulin Aspart (novoLOG ASPART) SLIDING SCALE If C... ACHS SC 01/26/17 16:15 02/25/17 16:14 01/26/17 21:05 1 UNITS Glucose (Glucose 40% Gel) 15-30 GRAMS 15 GRAMS... UD PRN PO 01/26/17 15:15 02/25/17 15:14 Glucose (Glucose Chew Tab) 4-8 Tablets 4 Tabl... UD PRN PO 01/26/17 15:15 02/25/17 15:14 Dextrose (Dextrose 50% 50ML Syringe) 25-50ML OF 50% DW IV FOR... UD PRN IV 01/26/17 15:15 02/25/17 15:14 Glucagon (Glucagon Inj) 1 mg UD PRN SQ 01/26/17 15:15 02/25/17 15:14 Aspirin (Ecotrin Tab) 81 mg QAM PO 01/27/17 09:00 02/26/17 08:59 01/27/17 07:49 81 MG Finasteride (Proscar Tab) 5 mg DAILY PO 01/27/17 09:00 02/26/17 08:59 01/27/17 07:49 5 MG Folic Acid (Folvite Tab) 1 mg QAM PO 01/27/17 09:00 02/26/17 08:59 01/27/17 07:50 1 MG Linezolid (Zyvox Tab) 600 mg BID PO 01/26/17 21:00 11/18/17 20:59 01/27/17 07:50 600 MG Metoprolol Tartrate (Lopressor Tab) 25 mg BID PO 01/26/17 21:00 02/25/17 20:59 01/27/17 07:50 25 MG Multivitamins/ Minerals (Multivitamin W/ Minerals Tab) 1 tab QAM PO 01/27/17 09:00 02/26/17 08:59 01/27/17 07:51 1 TAB Potassium Chloride (Klor-Con Tab) 20 meq DAILY PO 01/27/17 09:00 02/26/17 08:59 01/27/17 07:53 20 MEQ Ascorbic Acid (Vitamin C Tab) 500 mg DAILY PO 01/27/17 09:00 02/26/17 08:59 01/27/17 07:51 500 MG Cholecalciferol (Vitamin D Tab) 2,000 inter.unit QAM PO 01/27/17 09:00 02/26/17 08:59 01/27/17 07:50 2,000 INTER.UNIT Ferrous Sulfate (Feosol Tab) 325 mg TID PO 01/26/17 21:00 02/25/17 20:59 01/27/17 07:51 325 MG Furosemide (Lasix Tab) 20 mg DAILY@1700 PO 01/26/17 21:00 02/25/17 20:59 01/26/17 23:16 20 MG Furosemide (Lasix Tab) 40 mg QAM PO 01/27/17 09:00 02/26/17 08:59 01/27/17 07:52 40 MG Review of Systems All systems were reviewed and are negative except as per HPI Physical Exam Date Time Temp Pulse Resp B/P (MAP) Pulse Ox O2 Delivery O2 Flow Rate FiO2 01/27/17 08:00 98 Nasal Cannula 2.0 01/27/17 07:55 36.6 88 18 109/69 (82) 96 01/27/17 06:35 37.0 91 16 106/52 100 01/27/17 05:39 36.3 82 16 103/54 95 01/27/17 05:10 36.5 84 16 102/53 100 2.0 01/27/17 04:50 36.6 90 101/55 98 01/27/17 04:00 100 Nasal Cannula 01/27/17 03:10 36.5 90 15 104/48 (66) 93 Room Air 01/27/17 00:52 36.5 91 105/63 100 2.0 01/27/17 00:00 100 Nasal Cannula 01/26/17 23:45 36.7 89 126/43 98 01/26/17 22:45 106 125/52 90 01/26/17 21:45 110 20 115/55 94 01/26/17 21:22 108 20 118/67 95 01/26/17 21:15 110 20 118/67 (84) 97 01/26/17 21:01 106 20 112/62 (79) 92 Room Air 01/26/17 21:00 36.7 109 20 112/62 97 01/26/17 20:00 Room Air 01/26/17 19:46 97 20 115/55 (75) 96 Room Air 01/26/17 18:47 100 20 131/55 (80) 94 Room Air 01/26/17 18:45 36.4 99 20 131/55 97 01/26/17 17:51 36.4 108 20 107/51 95 01/26/17 17:17 36.3 91 20 111/52 100 01/26/17 17:02 36.3 105 20 108/52 95 01/26/17 16:00 98 Room Air 01/26/17 15:06 36.7 98 16 115/66 (82) 100 Room Air 01/26/17 14:36 36.5 95 18 104/74 97 Room Air General Appearance: WD/WN, no apparent distress, + thin, + pertinent finding ( somewhat lethargic) Head: atraumatic Eyes: EOMI, sclerae normal, + pertinent finding ( pale conjunctivae) ENT: normal ENT inspection, pharynx normal Neck: supple, no adenopathy, thyroid normal, trachea midline Respiratory/Chest: chest non-tender, lungs clear, normal breath sounds, no respiratory distress Cardiovascular: no gallop, no murmur, + irregularly irregular Abdomen/GI: normal bowel sounds, non tender, soft, no organomegaly Back: normal inspection, no CVA tenderness Extremities/Musculoskelatal: no calf tenderness, + slow capillary refill Neurologic/Psych: alert, oriented x 3 Skin: normal color, no rash, + pertinent finding ( left foot wound clean without worsening erythema or odor, buttock ulcer with some erythema) Laboratory Results Last 24 Hours Test 01/26/17 14:17 01/26/17 14:41 01/26/17 14:42 01/26/17 15:49 White Blood Count 4.01 K/uL Red Blood Count 1.85 M/uL Hemoglobin 5.4 g/dL Hematocrit 17.2 % Mean Corpuscular Volume 93.0 fL Mean Corpuscular Hemoglobin 29.2 pg Mean Corpuscular Hemoglobin Concent 31.4 g/dl RDW Standard Deviation 60.8 fL RDW Coefficient of Variation 18.4 % Platelet Count 44 K/uL Mean Platelet Volume 11.8 fL Nucleated RBC Absolute Count (auto) 0.03 K/uL Nucleated Red Blood Cells % 0.7 % Prothrombin Time 15.7 SECONDS Prothromb Time International Ratio 1.4 Activated Partial Thromboplast Time 28.2 SECONDS Partial Thromboplastin Ratio 1.1 Sodium Level 133 mmol/L Potassium Level 4.5 mmol/L Chloride Level 95 mmol/L Carbon Dioxide Level 20 mmol/L Anion Gap 18.0 mmol/L Blood Urea Nitrogen 89 mg/dl Creatinine 2.19 mg/dl Estimated GFR () 30.1 Estimated GFR (Non- 25.9 BUN/Creatinine Ratio 40.4 Random Glucose 233 mg/dl Calcium Level 8.6 mg/dl Total Bilirubin 0.4 mg/dl Aspartate Amino Transf (AST/SGOT) 20 U/L Alanine Aminotransferase (ALT/SGPT) 33 U/L Alkaline Phosphatase 94 U/L Total Protein 7.2 gm/dl Albumin 2.2 gm/dl Globulin 5.0 gm/dl Albumin/Globulin Ratio 0.4 Lipase 74 U/L Magnesium Level 2.2 mg/dl Total Creatine Kinase 25 U/L Creatine Kinase MB 2.6 ng/ml Creatine Kinase MB Ratio 10.4 Troponin I 0.125 ng/ml Bedside Glucose 274 mg/dl Test 01/26/17 20:10 01/26/17 20:42 01/27/17 00:48 01/27/17 01:58 Bedside Glucose 215 mg/dl 165 mg/dl Creatine Kinase MB Ratio 9.1 White Blood Count 4.03 K/uL Red Blood Count 2.34 M/uL Hemoglobin 6.8 g/dL Hematocrit 21.2 % Mean Corpuscular Volume 90.6 fL Mean Corpuscular Hemoglobin 29.1 pg Mean Corpuscular Hemoglobin Concent 32.1 g/dl RDW Standard Deviation 52.7 fL RDW Coefficient of Variation 16.8 % Platelet Count 34 K/uL Mean Platelet Volume 10.7 fL Sodium Level 136 mmol/L Potassium Level 3.8 mmol/L Chloride Level 96 mmol/L Carbon Dioxide Level 28 mmol/L Anion Gap 12.0 mmol/L Blood Urea Nitrogen 85 mg/dl Creatinine 1.97 mg/dl Est Creatinine Clear Calc Drug Dose 26.8 ml/min Estimated GFR () 34.2 Estimated GFR (Non- 29.5 BUN/Creatinine Ratio 43.1 Random Glucose 137 mg/dl Calcium Level 8.3 mg/dl Total Creatine Kinase 22 U/L Creatine Kinase MB 2.0 ng/ml Troponin I 0.188 ng/ml Test 01/27/17 05:01 01/27/17 06:31 01/27/17 08:00 01/27/17 09:25 Bedside Glucose 136 mg/dl 131 mg/dl Creatine Kinase MB Ratio Hemoglobin 7.4 g/dL Hematocrit 22.9 % SINGLE VIEW CHEST CLINICAL HISTORY: CHF. FINDINGS: An AP, portable, upright chest radiograph is compared to study dated 12/19/2016 and correlated with chest CT dated 02/06/2008. The examination is degraded by portable technique and patient rotation. A right PICC line has been removed from previous. The patient is status post midline sternotomy and cardiac valve surgery. The heart is enlarged and there is atherosclerotic calcification of the thoracic aorta. There is pulmonary vascular congestion and interstitial edema. There are layering pleural effusions with bibasilar consolidation. No pneumothorax is seen. The skeletal structures are osteopenic. The bony thorax is grossly intact. IMPRESSION: 1. Cardiomegaly with evidence of congestive failure and interstitial edema. 2. There are layering pleural effusions with bibasilar consolidation which likely represents atelectasis. Correlate clinically for evidence of superimposed pneumonia. Electronically signed by: Julian Hernández M.D. 01/26/2017 4:42 PM Assessment & Plan patient with recent gangrene of the left foot status post partial amputation, with most recent cultures positive for coagulase negative Staph. It is not clear whether Zyvox playing a role in patient's anemia. Will therefore discontinue and start patient on daptomycin while in hospital. Will follow.
[2017-01-27 11:00] LABS: CKMB/CK RATIO 8.9 (0-3.0)
--- NOTE | 2017-01-27 11:32 | Gastroenterology Progress Note ---
Progress Note Date of Service: Jan 27, 2017 Subjective Pt evaluation today including: conversation w/ patient, physical exam, chart review, lab review, review of inpatient medication list Pt is awake and oriented x 3 today. Received 3U PRBC, Hgb up to 7.4 today. No BM overnight. He denies any abd pain, n/v Review of Systems Constitutional: No fever, No chills Respiratory: No cough, No shortness of breath Cardiac: No chest pain Abdomen: No pain, No nausea, No vomiting Medications Current Inpatient Medications Medications (Trade) Dose Ordered Sig/Rosemarie Route Start Time Stop Time Status Last Admin Dose Admin Acetaminophen (Tylenol Tab) 650 mg Q4H PRN PO 01/26/17 13:45 02/25/17 13:44 Ondansetron HCl (Zofran Inj) 4 mg Q6H PRN IV 01/26/17 15:00 02/25/17 14:59 Insulin Glargine (Lantus Solostar Pen) 5 units Q12 SC 01/26/17 21:00 02/25/17 20:59 01/27/17 07:52 5 UNITS Insulin Aspart (novoLOG ASPART) SLIDING SCALE If C... ACHS SC 01/26/17 16:15 02/25/17 16:14 01/26/17 21:05 1 UNITS Glucose (Glucose 40% Gel) 15-30 GRAMS 15 GRAMS... UD PRN PO 01/26/17 15:15 02/25/17 15:14 Glucose (Glucose Chew Tab) 4-8 Tablets 4 Tabl... UD PRN PO 01/26/17 15:15 02/25/17 15:14 Dextrose (Dextrose 50% 50ML Syringe) 25-50ML OF 50% DW IV FOR... UD PRN IV 01/26/17 15:15 02/25/17 15:14 Glucagon (Glucagon Inj) 1 mg UD PRN SQ 01/26/17 15:15 02/25/17 15:14 Aspirin (Ecotrin Tab) 81 mg QAM PO 01/27/17 09:00 02/26/17 08:59 01/27/17 07:49 81 MG Finasteride (Proscar Tab) 5 mg DAILY PO 01/27/17 09:00 02/26/17 08:59 01/27/17 07:49 5 MG Folic Acid (Folvite Tab) 1 mg QAM PO 01/27/17 09:00 02/26/17 08:59 01/27/17 07:50 1 MG Metoprolol Tartrate (Lopressor Tab) 25 mg BID PO 01/26/17 21:00 02/25/17 20:59 01/27/17 07:50 25 MG Multivitamins/ Minerals (Multivitamin W/ Minerals Tab) 1 tab QAM PO 01/27/17 09:00 02/26/17 08:59 01/27/17 07:51 1 TAB Potassium Chloride (Klor-Con Tab) 20 meq DAILY PO 01/27/17 09:00 02/26/17 08:59 01/27/17 07:53 20 MEQ Ascorbic Acid (Vitamin C Tab) 500 mg DAILY PO 01/27/17 09:00 02/26/17 08:59 01/27/17 07:51 500 MG Cholecalciferol (Vitamin D Tab) 2,000 inter.unit QAM PO 01/27/17 09:00 02/26/17 08:59 01/27/17 07:50 2,000 INTER.UNIT Ferrous Sulfate (Feosol Tab) 325 mg TID PO 01/26/17 21:00 02/25/17 20:59 01/27/17 07:51 325 MG Furosemide (Lasix Tab) 20 mg DAILY@1700 PO 01/26/17 21:00 02/25/17 20:59 01/26/17 23:16 20 MG Furosemide (Lasix Tab) 40 mg QAM PO 01/27/17 09:00 02/26/17 08:59 01/27/17 07:52 40 MG Daptomycin 500 mg/ Syringe 10 ml @ 5 mls/min Q48H IV 01/27/17 11:00 02/06/17 10:59 Objective Vital Signs Date Time Temp Pulse Resp B/P (MAP) Pulse Ox O2 Delivery O2 Flow Rate FiO2 01/27/17 08:25 36.8 88 18 103/47 100 2.0 01/27/17 08:00 98 Nasal Cannula 2.0 01/27/17 07:55 36.6 88 18 109/69 (82) 96 01/27/17 07:40 95 108/39 100 2.0 01/27/17 06:35 37.0 91 16 106/52 100 01/27/17 05:39 36.3 82 16 103/54 95 01/27/17 05:10 36.5 84 16 102/53 100 2.0 01/27/17 04:50 36.6 90 101/55 98 01/27/17 04:00 100 Nasal Cannula 01/27/17 03:10 36.5 90 15 104/48 (66) 93 Room Air 01/27/17 00:52 36.5 91 105/63 100 2.0 01/27/17 00:00 100 Nasal Cannula 01/26/17 23:45 36.7 89 126/43 98 01/26/17 22:45 106 125/52 90 01/26/17 21:45 110 20 115/55 94 01/26/17 21:22 108 20 118/67 95 01/26/17 21:15 110 20 118/67 (84) 97 01/26/17 21:01 106 20 112/62 (79) 92 Room Air 01/26/17 21:00 36.7 109 20 112/62 97 01/26/17 20:00 Room Air 01/26/17 19:46 97 20 115/55 (75) 96 Room Air 01/26/17 18:47 100 20 131/55 (80) 94 Room Air 01/26/17 18:45 36.4 99 20 131/55 97 01/26/17 17:51 36.4 108 20 107/51 95 01/26/17 17:17 36.3 91 20 111/52 100 01/26/17 17:02 36.3 105 20 108/52 95 01/26/17 16:00 98 Room Air 01/26/17 15:06 36.7 98 16 115/66 (82) 100 Room Air 01/26/17 14:36 36.5 95 18 104/74 97 Room Air Physical Exam General Appearance: WD/WN, no apparent distress Eyes: normal inspection, PERRL, EOMI Neck: supple, no JVD, trachea midline Respiratory/Chest: no respiratory distress, no accessory muscle use, + decreased breath sounds Cardiovascular: no gallop, no murmur, + irregularly irregular Abdomen: normal bowel sounds, non tender, soft Extremities: normal inspection, no pedal edema, no calf tenderness Neurologic/Psych: alert, normal mood/affect, oriented x 3 Skin: normal color, no jaundice, no rash Laboratory Results Last 24 Hours Test 01/26/17 14:17 01/26/17 14:41 01/26/17 14:42 01/26/17 15:49 White Blood Count 4.01 K/uL Red Blood Count 1.85 M/uL Hemoglobin 5.4 g/dL Hematocrit 17.2 % Mean Corpuscular Volume 93.0 fL Mean Corpuscular Hemoglobin 29.2 pg Mean Corpuscular Hemoglobin Concent 31.4 g/dl RDW Standard Deviation 60.8 fL RDW Coefficient of Variation 18.4 % Platelet Count 44 K/uL Mean Platelet Volume 11.8 fL Nucleated RBC Absolute Count (auto) 0.03 K/uL Nucleated Red Blood Cells % 0.7 % Prothrombin Time 15.7 SECONDS Prothromb Time International Ratio 1.4 Activated Partial Thromboplast Time 28.2 SECONDS Partial Thromboplastin Ratio 1.1 Sodium Level 133 mmol/L Potassium Level 4.5 mmol/L Chloride Level 95 mmol/L Carbon Dioxide Level 20 mmol/L Anion Gap 18.0 mmol/L Blood Urea Nitrogen 89 mg/dl Creatinine 2.19 mg/dl Estimated GFR () 30.1 Estimated GFR (Non- 25.9 BUN/Creatinine Ratio 40.4 Random Glucose 233 mg/dl Calcium Level 8.6 mg/dl Total Bilirubin 0.4 mg/dl Aspartate Amino Transf (AST/SGOT) 20 U/L Alanine Aminotransferase (ALT/SGPT) 33 U/L Alkaline Phosphatase 94 U/L Total Protein 7.2 gm/dl Albumin 2.2 gm/dl Globulin 5.0 gm/dl Albumin/Globulin Ratio 0.4 Lipase 74 U/L Magnesium Level 2.2 mg/dl Total Creatine Kinase 25 U/L Creatine Kinase MB 2.6 ng/ml Creatine Kinase MB Ratio 10.4 Troponin I 0.125 ng/ml Bedside Glucose 274 mg/dl Test 01/26/17 20:10 01/26/17 20:42 01/27/17 00:48 01/27/17 01:58 Bedside Glucose 215 mg/dl 165 mg/dl Creatine Kinase MB Ratio 9.1 White Blood Count 4.03 K/uL Red Blood Count 2.34 M/uL Hemoglobin 6.8 g/dL Hematocrit 21.2 % Mean Corpuscular Volume 90.6 fL Mean Corpuscular Hemoglobin 29.1 pg Mean Corpuscular Hemoglobin Concent 32.1 g/dl RDW Standard Deviation 52.7 fL RDW Coefficient of Variation 16.8 % Platelet Count 34 K/uL Mean Platelet Volume 10.7 fL Sodium Level 136 mmol/L Potassium Level 3.8 mmol/L Chloride Level 96 mmol/L Carbon Dioxide Level 28 mmol/L Anion Gap 12.0 mmol/L Blood Urea Nitrogen 85 mg/dl Creatinine 1.97 mg/dl Est Creatinine Clear Calc Drug Dose 26.8 ml/min Estimated GFR () 34.2 Estimated GFR (Non- 29.5 BUN/Creatinine Ratio 43.1 Random Glucose 137 mg/dl Calcium Level 8.3 mg/dl Total Creatine Kinase 22 U/L Creatine Kinase MB 2.0 ng/ml Troponin I 0.188 ng/ml Test 01/27/17 05:01 01/27/17 06:31 01/27/17 09:25 Bedside Glucose 136 mg/dl 131 mg/dl Hemoglobin 7.4 g/dL Hematocrit 22.9 % Total Creatine Kinase 18 U/L Creatine Kinase MB 1.6 ng/ml Creatine Kinase MB Ratio 8.9 Troponin I 0.136 ng/ml Assessment and Plan Patient is a 86 year old male seen for anemia, Hgb 5.4, baseline 8-10. 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 Also w hx of AVR, heart failure. Currently Troponin elevated w evidence of congestive heart failure. He has CKD, been on B12, iron supplement, Procrit. Possible anemia from chronic disease, ? blood loss from wounds, decubitus ulcer. He is w/o davina s/s of GI bleeding. Colonoscopies 2005, 2008 w adenomatous polyps Received 3U PRBC transfusion, Hgb 5.4 -> 7.4 He is AAOx3 now. No BMs overnight. - Monitor H/H,transfuse prn - FL diet today. NPO after midnight; will re-eval tomorrow if stable will discuss possible endoscopic evals. - Nephrology follow, appreciate recs. I have seen, examined and agree with the plan as outlined by SERGIO Higginbotham as above. -Exam reveals soft abd -Work up of Anemia Seferino Dodd M.D.
--- NOTE | 2017-01-27 13:15 | Wound Consultation: Inpatient ---
Wound Consultation Date of Consultation: Jan 27, 2017. Attending Physician: Gallito Nesbitt MD Reason for Consultation: Traumatic wound left lower extremity Postop amputation left foot History of Present Illness Patient was admitted to [facility] for further evaluation of significant anemia. Patient has been under the care of [facility] for a postoperative wound following amputation partial of the left foot. Patient recently developed new traumatic wound to the left lower extremity as well as a pressure ulceration to the buttocks region. Patient currently is denying any significant pain. Patient denies any fever chills or night sweats. Patient denies any chest pain shortness of breath abdominal discomfort nausea or vomiting. Patient denies any other systemic complaints at this time. Family History Cancer BROTHER SISTER Coronary artery disease FATHER Kidney disease BROTHER Social History Smoking Status: Former Smoker Smokeless Tobacco Use: No Alcohol Use: none Drug Use: none Marital Status: Occupation Status: retired Allergies Coded Allergies: HERMAN Inhibitors (Verified Allergy, Intermediate, UNKNOWN, 11/05/16) Lisinopril (Verified Adverse Reaction, Unknown, COUGHING, 11/05/16) Home Medications Scheduled Acetaminophen (Tylenol), 2 TABS PO Q6 Ascorbic Acid (Vitamin C), 500 MG PO DAILY Aspirin Enteric Coated (Ecotrin Or Generic), 81 MG PO QAM Capsaicin (Arthritis Pain Relieving), TOP QID Cholecalciferol (Vitamin D3), 2,000 UNITS PO QAM Docusate Sodium (Colace), 1 CAP PO BID Epoetin Davian (Procrit), 10,000 UNITS SQ q 2 wks Ferrous Sulfate (Kp Ferrous Sulfate), 1 TAB PO TID Finasteride (Proscar), 1 TAB PO DAILY Folic Acid (Folvite), 1 MG PO QAM Furosemide (Lasix), 20 MG PO DAILY Furosemide (Lasix), 40 MG PO DAILY Insulin Aspart (Novolog Flexpen), SQ ACHS Insulin Glargine (Lantus), 10 UNITS SC HS Linezolid (Linezolid), 600 MG PO BID Metoprolol Tartrate (Lopressor) (Lopressor), 25 MG PO BID Multivitamins/Minerals (Mvi With Minerals), 1 TAB PO QAM Ondasetron Odt (Zofran Odt), 4 MG SL Q8 Potassium Chloride (Klor-Con M20), 20 MEQ PO DAILY [Protein Liquid], 30 ML PO DAILY Inpatient Medications Current Inpatient Medications Medications (Trade) Dose Ordered Sig/Rosemarie Route Start Time Stop Time Status Last Admin Dose Admin Acetaminophen (Tylenol Tab) 650 mg Q4H PRN PO 01/26/17 13:45 02/25/17 13:44 Ondansetron HCl (Zofran Inj) 4 mg Q6H PRN IV 01/26/17 15:00 02/25/17 14:59 Insulin Glargine (Lantus Solostar Pen) 5 units Q12 SC 01/26/17 21:00 02/25/17 20:59 01/27/17 07:52 5 UNITS Insulin Aspart (novoLOG ASPART) SLIDING SCALE If C... ACHS SC 01/26/17 16:15 02/25/17 16:14 01/26/17 21:05 1 UNITS Glucose (Glucose 40% Gel) 15-30 GRAMS 15 GRAMS... UD PRN PO 01/26/17 15:15 02/25/17 15:14 Glucose (Glucose Chew Tab) 4-8 Tablets 4 Tabl... UD PRN PO 01/26/17 15:15 02/25/17 15:14 Dextrose (Dextrose 50% 50ML Syringe) 25-50ML OF 50% DW IV FOR... UD PRN IV 01/26/17 15:15 02/25/17 15:14 Glucagon (Glucagon Inj) 1 mg UD PRN SQ 01/26/17 15:15 02/25/17 15:14 Aspirin (Ecotrin Tab) 81 mg QAM PO 01/27/17 09:00 02/26/17 08:59 01/27/17 07:49 81 MG Finasteride (Proscar Tab) 5 mg DAILY PO 01/27/17 09:00 02/26/17 08:59 01/27/17 07:49 5 MG Folic Acid (Folvite Tab) 1 mg QAM PO 01/27/17 09:00 02/26/17 08:59 01/27/17 07:50 1 MG Metoprolol Tartrate (Lopressor Tab) 25 mg BID PO 01/26/17 21:00 02/25/17 20:59 01/27/17 07:50 25 MG Multivitamins/ Minerals (Multivitamin W/ Minerals Tab) 1 tab QAM PO 01/27/17 09:00 02/26/17 08:59 01/27/17 07:51 1 TAB Potassium Chloride (Klor-Con Tab) 20 meq DAILY PO 01/27/17 09:00 02/26/17 08:59 01/27/17 07:53 20 MEQ Ascorbic Acid (Vitamin C Tab) 500 mg DAILY PO 01/27/17 09:00 02/26/17 08:59 01/27/17 07:51 500 MG Cholecalciferol (Vitamin D Tab) 2,000 inter.unit QAM PO 01/27/17 09:00 02/26/17 08:59 01/27/17 07:50 2,000 INTER.UNIT Ferrous Sulfate (Feosol Tab) 325 mg TID PO 01/26/17 21:00 02/25/17 20:59 01/27/17 07:51 325 MG Furosemide (Lasix Tab) 20 mg DAILY@1700 PO 01/26/17 21:00 02/25/17 20:59 01/26/17 23:16 20 MG Furosemide (Lasix Tab) 40 mg QAM PO 01/27/17 09:00 02/26/17 08:59 01/27/17 07:52 40 MG Daptomycin 500 mg/ Syringe 10 ml @ 5 mls/min Q48H IV 01/27/17 11:00 02/06/17 10:59 Physical Exam Date Time Temp Pulse Resp B/P (MAP) Pulse Ox O2 Delivery O2 Flow Rate FiO2 01/27/17 12:00 98 Nasal Cannula 2.0 01/27/17 11:34 37.0 72 18 118/60 (79) 98 01/27/17 08:25 36.8 88 18 103/47 100 2.0 01/27/17 08:00 98 Nasal Cannula 2.0 01/27/17 07:55 36.6 88 18 109/69 (82) 96 01/27/17 07:40 95 108/39 100 2.0 01/27/17 06:35 37.0 91 16 106/52 100 01/27/17 05:39 36.3 82 16 103/54 95 01/27/17 05:10 36.5 84 16 102/53 100 2.0 01/27/17 04:50 36.6 90 101/55 98 01/27/17 04:00 100 Nasal Cannula 01/27/17 03:10 36.5 90 15 104/48 (66) 93 Room Air 01/27/17 00:52 36.5 91 105/63 100 2.0 01/27/17 00:00 100 Nasal Cannula 01/26/17 23:45 36.7 89 126/43 98 01/26/17 22:45 106 125/52 90 01/26/17 21:45 110 20 115/55 94 01/26/17 21:22 108 20 118/67 95 01/26/17 21:15 110 20 118/67 (84) 97 01/26/17 21:01 106 20 112/62 (79) 92 Room Air 01/26/17 21:00 36.7 109 20 112/62 97 01/26/17 20:00 Room Air 01/26/17 19:46 97 20 115/55 (75) 96 Room Air 01/26/17 18:47 100 20 131/55 (80) 94 Room Air 01/26/17 18:45 36.4 99 20 131/55 97 01/26/17 17:51 36.4 108 20 107/51 95 01/26/17 17:17 36.3 91 20 111/52 100 01/26/17 17:02 36.3 105 20 108/52 95 01/26/17 16:00 98 Room Air 01/26/17 15:06 36.7 98 16 115/66 (82) 100 Room Air 01/26/17 14:36 36.5 95 18 104/74 97 Room Air General: The patient is lying in a hospital bed in no distress. Alert, cooperative and appropriate to all questions. HEENT: Pupils equal and reactive to light. Sclera clear, EOM intact. Neck: Supple, No JVD noted Chest: CTA in all stark. No deformity Heart: RRR without murmurs, S3, S4, thrills, rubs or heaves Back: Stage II pressure ulcer is present on the left buttocks region measuring 1 x 1 x 0.1 cm. There is no active drainage Central slough or periwound erythema noted. Extremities: Postop amputation site of the left foot measures 4.5 x 1.3 x 1.5 cm. There is surrounding maceration present. There is no Central slough or eschar formation noted. No active drainage or odor present. There is additional cluster traumatic wounds present on the left lower extremity measuring 6 x 2 x 0.1 cm. There is no Central slough periwound eschar active drainage noted no periwound erythema present. Neurological: Alert and oriented x3. No focal deficits. Skin: No rashes, papules, vesicles, excoriations Laboratory Results Last 24 Hours Test 01/26/17 14:17 01/26/17 14:41 01/26/17 14:42 01/26/17 15:49 White Blood Count 4.01 K/uL Red Blood Count 1.85 M/uL Hemoglobin 5.4 g/dL Hematocrit 17.2 % Mean Corpuscular Volume 93.0 fL Mean Corpuscular Hemoglobin 29.2 pg Mean Corpuscular Hemoglobin Concent 31.4 g/dl RDW Standard Deviation 60.8 fL RDW Coefficient of Variation 18.4 % Platelet Count 44 K/uL Mean Platelet Volume 11.8 fL Nucleated RBC Absolute Count (auto) 0.03 K/uL Nucleated Red Blood Cells % 0.7 % Prothrombin Time 15.7 SECONDS Prothromb Time International Ratio 1.4 Activated Partial Thromboplast Time 28.2 SECONDS Partial Thromboplastin Ratio 1.1 Sodium Level 133 mmol/L Potassium Level 4.5 mmol/L Chloride Level 95 mmol/L Carbon Dioxide Level 20 mmol/L Anion Gap 18.0 mmol/L Blood Urea Nitrogen 89 mg/dl Creatinine 2.19 mg/dl Estimated GFR () 30.1 Estimated GFR (Non- 25.9 BUN/Creatinine Ratio 40.4 Random Glucose 233 mg/dl Calcium Level 8.6 mg/dl Total Bilirubin 0.4 mg/dl Aspartate Amino Transf (AST/SGOT) 20 U/L Alanine Aminotransferase (ALT/SGPT) 33 U/L Alkaline Phosphatase 94 U/L Total Protein 7.2 gm/dl Albumin 2.2 gm/dl Globulin 5.0 gm/dl Albumin/Globulin Ratio 0.4 Lipase 74 U/L Magnesium Level 2.2 mg/dl Total Creatine Kinase 25 U/L Creatine Kinase MB 2.6 ng/ml Creatine Kinase MB Ratio 10.4 Troponin I 0.125 ng/ml Bedside Glucose 274 mg/dl Test 01/26/17 20:10 01/26/17 20:42 01/27/17 00:48 01/27/17 01:58 Bedside Glucose 215 mg/dl 165 mg/dl Creatine Kinase MB Ratio 9.1 White Blood Count 4.03 K/uL Red Blood Count 2.34 M/uL Hemoglobin 6.8 g/dL Hematocrit 21.2 % Mean Corpuscular Volume 90.6 fL Mean Corpuscular Hemoglobin 29.1 pg Mean Corpuscular Hemoglobin Concent 32.1 g/dl RDW Standard Deviation 52.7 fL RDW Coefficient of Variation 16.8 % Platelet Count 34 K/uL Mean Platelet Volume 10.7 fL Sodium Level 136 mmol/L Potassium Level 3.8 mmol/L Chloride Level 96 mmol/L Carbon Dioxide Level 28 mmol/L Anion Gap 12.0 mmol/L Blood Urea Nitrogen 85 mg/dl Creatinine 1.97 mg/dl Est Creatinine Clear Calc Drug Dose 26.8 ml/min Estimated GFR () 34.2 Estimated GFR (Non- 29.5 BUN/Creatinine Ratio 43.1 Random Glucose 137 mg/dl Calcium Level 8.3 mg/dl Total Creatine Kinase 22 U/L Creatine Kinase MB 2.0 ng/ml Troponin I 0.188 ng/ml Test 01/27/17 05:01 01/27/17 06:31 01/27/17 09:25 01/27/17 11:23 Bedside Glucose 136 mg/dl 131 mg/dl 135 mg/dl Hemoglobin 7.4 g/dL Hematocrit 22.9 % Total Creatine Kinase 18 U/L Creatine Kinase MB 1.6 ng/ml Creatine Kinase MB Ratio 8.9 Troponin I 0.136 ng/ml Assessment & Plan Assessment: Postoperative wound post amputation left foot Traumatic wound left lower extremity Stage II pressure ulcer left buttocks region Plan: No debridement is indicated at this time. The wound on the left foot managed with Aquacel Ag and gauze today followed by wound VAC application tomorrow black foam 125 mm of negative pressure wound VAC change Tuesday. Other sites will be managed with Aquacel Ag and gauze change daily patient will continue to be monitored during his hospital course and continue be reevaluated on the outpatient basis.
[2017-01-27] MEDS: INSULIN ASPART 100 UNITS/ML 3 ML PEN SC SCH ×4 (13:28→21:00)
[2017-01-27] MEDS: DAPTOmycin IV 500 MG in SYRINGE 0 ML IV SCH (13:31)
[2017-01-27] MEDS: FUROSEMIDE 20 MG TAB PO SCH (16:39)
[2017-01-27] MEDS ORDERED: FUROSEMIDE INJ 40 MG in SYRINGE 0 ML IV SCH (17:45)
[2017-01-27] MEDS ORDERED: ACETAMINOPHEN 325 MG TAB PO SCH (17:45)
--- NOTE | 2017-01-27 17:53 | Progress Note ---
Internal Med Progress Note Date of Service: Jan 27, 2017. Provider Documentation: SUBJECTIVE: says he is feeling better today afebrile denies chest pain or sob says having black stools hemodynamics stable OBJECTIVE: Vital Signs-as noted below Exam: General-alert and oriented. old and frail ENT-normal hearing Neck-no neck masses Lungs- cta b/l no wheezing or crackles Heart-s1 and s2 heard regular rate and rhythm no murmurs Abdomen-soft bowel sounds present no tenderness present no distension Extremities- no erythema wound vac on left foot seen Neuro-alert and oriented moves extremities Lab data as noted below. ASSESSMENT & PLAN: Profound ANEMIA hx of chronic anemia and receive procrit in the past directly sent by pcp for profound anemia presented with hb 5.4 received 3 units of prbc and hb 7.4 will transfuse one more unit has black stools but omn iron pilss follow Hemoccult GI on board and plan for egd when more stable as no obvious signs of bleeding stopped Zyvox continue to monitor NAUSEA/VOMITING Normal lipase, normal LFTs. No abdominal pain no complaints today on clears CHRONIC SYSTOLIC CHF echo 08/29/16 EF: 45-50% close monitor as receiving prbc continue home lasix iv Lasix during prbc transfusion A-FIB rate 96 and controlled on beta norma pt hx Coumadin in past, but was d/c due to epistaxis and hx falls CAD No CP. 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 pancytopenia from sickness and medications? stopped zyvox as above M spike on previous spep f/u spep consulted hematology f/u abs. DM HgbA1c 6.3 on 01/25/17 Lantus as per home NovoLog sliding scale Will monitor Arf on CKD stage 3 baseline CR 1.8-1.9. Today CR: 1.9 will f/u labs nephrology on board DVT PROPHYLAXIS scds DISPOSITION monitor in tele Vital Signs: Date Time Temp Pulse Resp B/P (MAP) Pulse Ox O2 Delivery O2 Flow Rate FiO2 01/27/17 16:00 Nasal Cannula 2.0 01/27/17 15:57 36.4 89 18 92/45 (61) 95 Nasal Cannula 1.5 01/27/17 15:18 36.8 95 18 125/69 (87) 94 Room Air 01/27/17 12:00 98 Nasal Cannula 2.0 01/27/17 11:34 37.0 72 18 118/60 (79) 98 01/27/17 08:25 36.8 88 18 103/47 100 2.0 01/27/17 08:00 98 Nasal Cannula 2.0 01/27/17 07:55 36.6 88 18 109/69 (82) 96 01/27/17 07:40 95 108/39 100 2.0 01/27/17 06:35 37.0 91 16 106/52 100 01/27/17 05:39 36.3 82 16 103/54 95 01/27/17 05:10 36.5 84 16 102/53 100 2.0 01/27/17 04:50 36.6 90 101/55 98 01/27/17 04:00 100 Nasal Cannula 01/27/17 03:10 36.5 90 15 104/48 (66) 93 Room Air 01/27/17 00:52 36.5 91 105/63 100 2.0 01/27/17 00:00 100 Nasal Cannula 01/26/17 23:45 36.7 89 126/43 98 01/26/17 22:45 106 125/52 90 01/26/17 21:45 110 20 115/55 94 01/26/17 21:22 108 20 118/67 95 01/26/17 21:15 110 20 118/67 (84) 97 01/26/17 21:01 106 20 112/62 (79) 92 Room Air 01/26/17 21:00 36.7 109 20 112/62 97 01/26/17 20:00 Room Air 01/26/17 19:46 97 20 115/55 (75) 96 Room Air 01/26/17 18:47 100 20 131/55 (80) 94 Room Air 01/26/17 18:45 36.4 99 20 131/55 97 01/26/17 17:51 36.4 108 20 107/51 95 Lab Results: Results Past 24 Hours Test 01/26/17 20:10 01/26/17 20:42 01/27/17 00:48 01/27/17 01:58 Range/Units Bedside Glucose 215 165 70-99 mg/dl Creatine Kinase MB Ratio 9.1 0-3.0 White Blood Count 4.03 4.8-10.8 K/uL Red Blood Count 2.34 4.7-6.1 M/uL Hemoglobin 6.8 14.0-18.0 g/dL Hematocrit 21.2 42-52 % Mean Corpuscular Volume 90.6 80-100 fL Mean Corpuscular Hemoglobin 29.1 25-34 pg Mean Corpuscular Hemoglobin Concent 32.1 32-36 g/dl RDW Standard Deviation 52.7 36.4-46.3 fL RDW Coefficient of Variation 16.8 11.5-14.5 % Platelet Count 34 130-400 K/uL Mean Platelet Volume 10.7 7.4-10.4 fL Sodium Level 136 136-145 mmol/L Potassium Level 3.8 3.5-5.1 mmol/L Chloride Level 96 98-107 mmol/L Carbon Dioxide Level 28 21-32 mmol/L Anion Gap 12.0 3-11 mmol/L Blood Urea Nitrogen 85 7-18 mg/dl Creatinine 1.97 0.60-1.40 mg/dl Est Creatinine Clear Calc Drug Dose 26.8 ml/min Estimated GFR () 34.2 Estimated GFR (Non- 29.5 BUN/Creatinine Ratio 43.1 10-20 Random Glucose 137 70-99 mg/dl Calcium Level 8.3 8.5-10.1 mg/dl Total Creatine Kinase 22 39-308 U/L Creatine Kinase MB 2.0 0.5-3.6 ng/ml Troponin I 0.188 0-0.045 ng/ml Test 01/27/17 05:01 01/27/17 06:31 01/27/17 09:25 01/27/17 11:23 Range/Units Bedside Glucose 136 131 135 70-99 mg/dl Hemoglobin 7.4 14.0-18.0 g/dL Hematocrit 22.9 42-52 % Total Creatine Kinase 18 39-308 U/L Creatine Kinase MB 1.6 0.5-3.6 ng/ml Creatine Kinase MB Ratio 8.9 0-3.0 Troponin I 0.136 0-0.045 ng/ml Test 01/27/17 15:55 Range/Units Bedside Glucose 111 70-99 mg/dl
--- NOTE | 2017-01-27 21:28 | Medical Consult ---
Consultation Date of Consultation: Jan 27, 2017. 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 He is admitted fo anemia. He is receiving PRBC transfusion He reports that he feels improved He has thrombocytopenia as well. He denies any abdominal pain or nausea or vomiting. He had ferritin level that was in normal range, iron and iron sat were elevated Past Medical/Surgical History PMH/PSH: anemia, CKD stage 3, aortic stenosis, carotid arterial disease, diabetes type 2, peripheral neuropathy, CHF, hypertesnion, dyslipidemia, diabetic foot ulcer, RA, septic joint left knee s/p amputation of toe of left foot and toe of right foot, AVR with bioprosthetic valve, catatract extraction, cholecystectomy, CABG Medical Problems: (1) Acute on chronic renal failure Status: Acute (2) Anemia Status: Acute (3) Cellulitis of left leg Status: Acute (4) CHF (congestive heart failure) Status: Acute (5) Hypoxia Status: Acute (6) Left-sided epistaxis Status: Acute (7) Pneumonia Status: Acute (8) Sepsis Status: Acute (9) Urinary retention Status: Acute Family History Cancer BROTHER SISTER Coronary artery disease FATHER Kidney disease BROTHER Social History Smoking Status: Former Smoker Smokeless Tobacco Use: No Alcohol Use: none Drug Use: none Marital Status: Occupation Status: retired Allergies Coded Allergies: HERMAN Inhibitors (Verified Allergy, Intermediate, UNKNOWN, 11/05/16) Lisinopril (Verified Adverse Reaction, Unknown, COUGHING, 11/05/16) Current Inpatient Medications Current Inpatient Medications Medications (Trade) Dose Ordered Sig/Rosemarie Route Start Time Stop Time Status Last Admin Dose Admin Acetaminophen (Tylenol Tab) 650 mg Q4H PRN PO 01/26/17 13:45 02/25/17 13:44 Ondansetron HCl (Zofran Inj) 4 mg Q6H PRN IV 01/26/17 15:00 02/25/17 14:59 Insulin Glargine (Lantus Solostar Pen) 5 units Q12 SC 01/26/17 21:00 02/25/17 20:59 01/27/17 07:52 5 UNITS Insulin Aspart (novoLOG ASPART) SLIDING SCALE If C... ACHS SC 01/26/17 16:15 02/25/17 16:14 01/26/17 21:05 1 UNITS Glucose (Glucose 40% Gel) 15-30 GRAMS 15 GRAMS... UD PRN PO 01/26/17 15:15 02/25/17 15:14 Glucose (Glucose Chew Tab) 4-8 Tablets 4 Tabl... UD PRN PO 01/26/17 15:15 02/25/17 15:14 Dextrose (Dextrose 50% 50ML Syringe) 25-50ML OF 50% DW IV FOR... UD PRN IV 01/26/17 15:15 02/25/17 15:14 Glucagon (Glucagon Inj) 1 mg UD PRN SQ 01/26/17 15:15 02/25/17 15:14 Aspirin (Ecotrin Tab) 81 mg QAM PO 01/27/17 09:00 02/26/17 08:59 01/27/17 07:49 81 MG Finasteride (Proscar Tab) 5 mg DAILY PO 01/27/17 09:00 02/26/17 08:59 01/27/17 07:49 5 MG Folic Acid (Folvite Tab) 1 mg QAM PO 01/27/17 09:00 02/26/17 08:59 01/27/17 07:50 1 MG Metoprolol Tartrate (Lopressor Tab) 25 mg BID PO 01/26/17 21:00 02/25/17 20:59 01/27/17 07:50 25 MG Multivitamins/ Minerals (Multivitamin W/ Minerals Tab) 1 tab QAM PO 01/27/17 09:00 02/26/17 08:59 01/27/17 07:51 1 TAB Potassium Chloride (Klor-Con Tab) 20 meq DAILY PO 01/27/17 09:00 02/26/17 08:59 01/27/17 07:53 20 MEQ Ascorbic Acid (Vitamin C Tab) 500 mg DAILY PO 01/27/17 09:00 02/26/17 08:59 01/27/17 07:51 500 MG Cholecalciferol (Vitamin D Tab) 2,000 inter.unit QAM PO 01/27/17 09:00 02/26/17 08:59 01/27/17 07:50 2,000 INTER.UNIT Ferrous Sulfate (Feosol Tab) 325 mg TID PO 01/26/17 21:00 02/25/17 20:59 01/27/17 20:14 325 MG Furosemide (Lasix Tab) 20 mg DAILY@1700 PO 01/26/17 21:00 02/25/17 20:59 01/27/17 16:39 20 MG Furosemide (Lasix Tab) 40 mg QAM PO 01/27/17 09:00 02/26/17 08:59 01/27/17 07:52 40 MG Daptomycin 500 mg/ Syringe 10 ml @ 5 mls/min Q48H IV 01/27/17 11:00 02/06/17 10:59 01/27/17 13:31 5 MLS/MIN Acetaminophen (Tylenol Tab) 650 mg TODAY@1745 PO 01/27/17 17:45 01/27/17 23:59 01/27/17 18:09 650 MG Furosemide 40 mg/ Syringe 4 ml @ 4 mls/min TODAY@1745 IV 01/27/17 17:45 01/27/17 23:59 Review of Systems Constitutional: + weakness (generalized), + fatigue, + problem reported ( decreased appetite), No fever, No chills, No sweats Eyes: No eye pain ENT: + unusual epistaxis, + trouble swallowing, No sore throat Respiratory: + cough, No shortness of breath, No dyspnea on exertion, No hemoptysis Cardiovascular: No chest pain, No palpitations Abdomen: + problem reported (states stool has been black, but he did not see any gross blood), No pain, No nausea, No vomiting, No diarrhea, No constipation Musculoskeletal: No joint pain Genitourinary - Male: No hematuria, No dysuria Endocrine: + fatigue Hematologic / Lymphatic: No swollen lymph nodes, No night sweats Integumentary: + problem reported (left foot wound - was on oral zyvox and wound vac), No rash Physical Exam Date Time Temp Pulse Resp B/P (MAP) Pulse Ox O2 Delivery O2 Flow Rate FiO2 01/27/17 20:19 36.6 91 18 108/55 98 2.0 01/27/17 20:07 36.7 95 18 90/49 92 01/27/17 19:53 36.7 104 18 116/49 (71) 98 Nasal Cannula 1.5 01/27/17 16:00 Nasal Cannula 2.0 01/27/17 15:57 36.4 89 18 92/45 (61) 95 Nasal Cannula 1.5 01/27/17 15:18 36.8 95 18 125/69 (87) 94 Room Air 01/27/17 12:00 98 Nasal Cannula 2.0 01/27/17 11:34 37.0 72 18 118/60 (79) 98 01/27/17 08:25 36.8 88 18 103/47 100 2.0 01/27/17 08:00 98 Nasal Cannula 2.0 01/27/17 07:55 36.6 88 18 109/69 (82) 96 01/27/17 07:40 95 108/39 100 2.0 01/27/17 06:35 37.0 91 16 106/52 100 01/27/17 05:39 36.3 82 16 103/54 95 01/27/17 05:10 36.5 84 16 102/53 100 2.0 01/27/17 04:50 36.6 90 101/55 98 01/27/17 04:00 100 Nasal Cannula 01/27/17 03:10 36.5 90 15 104/48 (66) 93 Room Air 01/27/17 00:52 36.5 91 105/63 100 2.0 01/27/17 00:00 100 Nasal Cannula 01/26/17 23:45 36.7 89 126/43 98 01/26/17 22:45 106 125/52 90 01/26/17 21:45 110 20 115/55 94 01/26/17 21:22 108 20 118/67 95 01/26/17 21:15 110 20 118/67 (84) 97 01/26/17 21:01 106 20 112/62 (79) 92 Room Air General Appearance: no apparent distress, + thin Head: normocephalic, atraumatic Eyes: sclerae normal Neck: supple, no adenopathy Respiratory/Chest: lungs clear, normal breath sounds Cardiovascular: no edema, + irregularly irregular Abdomen/GI: normal bowel sounds, non tender, soft Extremities/Musculoskelatal: + pertinent finding (s/p partial amputation of toes, left foot dressing c/d/i, in boots) Neurologic/Psych: alert, oriented x 3 Skin: warm/dry Laboratory Results Last 24 Hours Test 01/27/17 00:48 01/27/17 01:58 01/27/17 05:01 01/27/17 06:31 Bedside Glucose 165 mg/dl 136 mg/dl 131 mg/dl White Blood Count 4.03 K/uL Red Blood Count 2.34 M/uL Hemoglobin 6.8 g/dL Hematocrit 21.2 % Mean Corpuscular Volume 90.6 fL Mean Corpuscular Hemoglobin 29.1 pg Mean Corpuscular Hemoglobin Concent 32.1 g/dl RDW Standard Deviation 52.7 fL RDW Coefficient of Variation 16.8 % Platelet Count 34 K/uL Mean Platelet Volume 10.7 fL Sodium Level 136 mmol/L Potassium Level 3.8 mmol/L Chloride Level 96 mmol/L Carbon Dioxide Level 28 mmol/L Anion Gap 12.0 mmol/L Blood Urea Nitrogen 85 mg/dl Creatinine 1.97 mg/dl Est Creatinine Clear Calc Drug Dose 26.8 ml/min Estimated GFR () 34.2 Estimated GFR (Non- 29.5 BUN/Creatinine Ratio 43.1 Random Glucose 137 mg/dl Calcium Level 8.3 mg/dl Total Creatine Kinase 22 U/L Creatine Kinase MB 2.0 ng/ml Creatine Kinase MB Ratio 9.1 Troponin I 0.188 ng/ml Test 01/27/17 09:25 01/27/17 11:23 01/27/17 15:55 Hemoglobin 7.4 g/dL Hematocrit 22.9 % Total Creatine Kinase 18 U/L Creatine Kinase MB 1.6 ng/ml Creatine Kinase MB Ratio 8.9 Troponin I 0.136 ng/ml Bedside Glucose 135 mg/dl 111 mg/dl outpatient labs 01/25/ WBC 3.93 hemoglobin 5.8 hematocrit 18.3 platelet decreased , transferrin sat 100% iron 272 iron binding cap 273 ferritin 102 CXR 1. Cardiomegaly with evidence of congestive failure and interstitial edema. 2. There are layering pleural effusions with bibasilar consolidation which likely represents atelectasis. Correlate clinically for evidence of superimposed pneumonia. 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 He is receiving PRBC transfusion and is feeling improved. Check retic count and immature platelet fraction, peripheral smear, b12, folate. SPEP is pending. He was switched off zyvox and is now on daptomycin. Patient is to follow up in the office upon discharge. Recommend consider GI consult to rule out blood loss as he reports that he has been having black stool - patient reports that this has been occurring on and off prior to admission thank you for allowing me to participate in the care of this patient
[2017-01-28] VITALS (7 sets, daily range): BP systolic 95–116; BP diastolic 47–64; PULSE 78–105; TEMP 36.3–36.8; O2SAT 92–99
[2017-01-28 00:31] LABS: IPF 19.4 % (0.9-8.3)
[2017-01-28] MEDS: INSULIN ASPART 100 UNITS/ML 3 ML PEN SC SCH ×4 (07:00→22:32)
[2017-01-28 08:31] LABS: BUN/CREATININE RATIO 44.3 (10-20); CALCIUM 8.1 mg/dl (8.5-10.1); CREATININE 1.61 mg/dl (0.60-1.40); HEMATOCRIT 27.2 % (42-52); MEAN CELL VOLUME 88.6 fL (80-100); MEAN CORPUSCULAR HEMOGLOBIN 28.7 pg (25-34); MEAN CORPUSCULAR HGB CONC 32.4 g/dl (32-36); PLATELET COUNT 30 K/uL (130-400); POTASSIUM 2.8 mmol/L (3.5-5.1); RED BLOOD COUNT 3.07 M/uL (4.7-6.1); WHITE BLOOD COUNT 4.91 K/uL (4.8-10.8)
[2017-01-28 08:33] LABS: ANISOCYTOSIS PRESENT; COMPLETE YES; EOS % 0.6 %; IG% 0.2 %; LARGE PLATELETS 2+; LYMPH % 8.8 %; LYMPH ABS # 0.43 K/uL (1.2-3.4); NEUT % 80.4 %; PLT ESTIMATE SIGNIFIC DECREASED
[2017-01-28] MEDS ORDERED: POTASSIUM CHLORIDE 20 MEQ TABCR PO STA ×2 (08:43→16:54)
[2017-01-28] MEDS: FINASTERIDE 5 MG TAB PO SCH (09:00)
[2017-01-28] MEDS: FUROSEMIDE 40 MG TAB PO SCH (09:00)
[2017-01-28] MEDS: METOPROLOL TARTRATE 25 MG TAB PO SCH ×2 (09:00→22:30)
[2017-01-28] MEDS: ASCORBIC ACID 500 MG TAB PO SCH (09:00)
[2017-01-28] MEDS: FERROUS SULFATE 325 MG TAB PO SCH ×3 (09:00→22:30)
[2017-01-28] MEDS: CHOLECALCIFEROL 1000 INTER.UNIT TAB PO SCH (09:00)
[2017-01-28] MEDS: POTASSIUM CHLORIDE 20 MEQ TABCR PO SCH (09:00)
[2017-01-28] MEDS: ASPIRIN 81 MG ECTAB PO SCH (09:00)
[2017-01-28] MEDS: INSULIN GLARGINE SOLOSTAR 100 UNITS/ML 3 ML PEN SC SCH ×2 (09:00→22:37)
[2017-01-28] MEDS: CEROVITE ADV FORMULA TAB PO SCH (09:00)
[2017-01-28] MEDS: POTASSIUM CHLR 10 MEQ / WTR 10 MEQ in PREMIXED WATER 100 ML IV SCH ×2 (10:13→12:30)
--- NOTE | 2017-01-28 12:03 | Gastroenterology Progress Note ---
Progress Note Date of Service: Jan 28, 2017 Subjective Pt evaluation today including: conversation w/ patient, physical exam Pt feels well, denies any abd pain, n/v. Total 4U PRBC transfusion, Hgb 8.8. Some black stools overnight but on iron supplements, last bout of BM brown smear. Review of Systems Constitutional: No fever, No chills Respiratory: No cough, No shortness of breath Cardiac: No chest pain Abdomen: No pain, No nausea, No vomiting Medications Current Inpatient Medications Medications (Trade) Dose Ordered Sig/Rosemarie Route Start Time Stop Time Status Last Admin Dose Admin Acetaminophen (Tylenol Tab) 650 mg Q4H PRN PO 01/26/17 13:45 02/25/17 13:44 Ondansetron HCl (Zofran Inj) 4 mg Q6H PRN IV 01/26/17 15:00 02/25/17 14:59 Insulin Glargine (Lantus Solostar Pen) 5 units Q12 SC 01/26/17 21:00 02/25/17 20:59 01/27/17 22:05 5 UNITS Insulin Aspart (novoLOG ASPART) SLIDING SCALE If C... ACHS SC 01/26/17 16:15 02/25/17 16:14 01/26/17 21:05 1 UNITS Glucose (Glucose 40% Gel) 15-30 GRAMS 15 GRAMS... UD PRN PO 01/26/17 15:15 02/25/17 15:14 Glucose (Glucose Chew Tab) 4-8 Tablets 4 Tabl... UD PRN PO 01/26/17 15:15 02/25/17 15:14 Dextrose (Dextrose 50% 50ML Syringe) 25-50ML OF 50% DW IV FOR... UD PRN IV 01/26/17 15:15 02/25/17 15:14 Glucagon (Glucagon Inj) 1 mg UD PRN SQ 01/26/17 15:15 02/25/17 15:14 Aspirin (Ecotrin Tab) 81 mg QAM PO 01/27/17 09:00 02/26/17 08:59 01/27/17 07:49 81 MG Finasteride (Proscar Tab) 5 mg DAILY PO 01/27/17 09:00 02/26/17 08:59 01/27/17 07:49 5 MG Folic Acid (Folvite Tab) 1 mg QAM PO 01/27/17 09:00 02/26/17 08:59 01/27/17 07:50 1 MG Metoprolol Tartrate (Lopressor Tab) 25 mg BID PO 01/26/17 21:00 02/25/17 20:59 01/27/17 07:50 25 MG Multivitamins/ Minerals (Multivitamin W/ Minerals Tab) 1 tab QAM PO 01/27/17 09:00 02/26/17 08:59 01/27/17 07:51 1 TAB Potassium Chloride (Klor-Con Tab) 20 meq DAILY PO 01/27/17 09:00 02/26/17 08:59 01/27/17 07:53 20 MEQ Ascorbic Acid (Vitamin C Tab) 500 mg DAILY PO 01/27/17 09:00 02/26/17 08:59 01/27/17 07:51 500 MG Cholecalciferol (Vitamin D Tab) 2,000 inter.unit QAM PO 01/27/17 09:00 02/26/17 08:59 01/27/17 07:50 2,000 INTER.UNIT Ferrous Sulfate (Feosol Tab) 325 mg TID PO 01/26/17 21:00 02/25/17 20:59 01/27/17 20:14 325 MG Furosemide (Lasix Tab) 20 mg DAILY@1700 PO 01/26/17 21:00 02/25/17 20:59 01/27/17 16:39 20 MG Furosemide (Lasix Tab) 40 mg QAM PO 01/27/17 09:00 02/26/17 08:59 01/27/17 07:52 40 MG Daptomycin 500 mg/ Syringe 10 ml @ 5 mls/min Q48H IV 01/27/17 11:00 02/06/17 10:59 01/27/17 13:31 5 MLS/MIN Objective Vital Signs Date Time Temp Pulse Resp B/P (MAP) Pulse Ox O2 Delivery O2 Flow Rate FiO2 01/28/17 11:21 36.6 78 18 99/50 (66) 99 Room Air 01/28/17 08:02 36.6 95 18 111/52 (71) 98 2.0 01/28/17 07:37 Nasal Cannula 2.0 01/28/17 04:00 Nasal Cannula 2.0 01/28/17 03:35 36.6 96 20 116/60 (78) 99 Nasal Cannula 1.5 01/28/17 00:13 36.5 89 16 99/64 (76) 99 01/28/17 00:01 Nasal Cannula 2.0 01/27/17 22:36 36.6 87 18 104/64 100 2.0 01/27/17 22:33 84 117/58 01/27/17 22:03 86 101/50 99 2.0 01/27/17 21:36 76 101/47 2.0 01/27/17 21:08 81 104/64 2.0 01/27/17 20:51 106 103/58 2.0 01/27/17 20:36 86 104/70 2.0 01/27/17 20:21 99 18 112/66 99 2.0 01/27/17 20:19 36.6 91 18 108/55 98 2.0 01/27/17 20:07 36.7 95 18 90/49 92 01/27/17 20:00 Nasal Cannula 2.0 01/27/17 19:53 36.7 104 18 116/49 (71) 98 Nasal Cannula 1.5 01/27/17 16:00 Nasal Cannula 2.0 01/27/17 15:57 36.4 89 18 92/45 (61) 95 Nasal Cannula 1.5 01/27/17 15:18 36.8 95 18 125/69 (87) 94 Room Air Physical Exam General Appearance: WD/WN, no apparent distress Eyes: normal inspection, PERRL, EOMI Neck: supple, no JVD, trachea midline Respiratory/Chest: no respiratory distress, no accessory muscle use, + decreased breath sounds Cardiovascular: regular rate, rhythm, no gallop, no murmur Abdomen: normal bowel sounds, non tender, soft Extremities: normal inspection, no pedal edema, no calf tenderness Neurologic/Psych: alert, normal mood/affect, oriented x 3 Skin: normal color, no jaundice, no rash Laboratory Results Last 24 Hours Test 01/27/17 15:55 01/27/17 20:23 01/27/17 23:21 01/28/17 07:03 Bedside Glucose 111 mg/dl 124 mg/dl 87 mg/dl Immature Platelet Fraction 19.4 % Peripheral Blood Smear Path Consult Absolute Reticulocyte Count < 0.02 10^6/uL Percent Reticulocyte Count < 0.5 % Vitamin B12 Level 624 pg/mL Folate > 24.00 ng/mL Test 01/28/17 07:32 01/28/17 11:01 01/28/17 12:00 White Blood Count 4.91 K/uL Red Blood Count 3.07 M/uL Hemoglobin 8.8 g/dL Hematocrit 27.2 % Mean Corpuscular Volume 88.6 fL Mean Corpuscular Hemoglobin 28.7 pg Mean Corpuscular Hemoglobin Concent 32.4 g/dl Platelet Count 30 K/uL Neutrophils (%) (Auto) 80.4 % Lymphocytes (%) (Auto) 8.8 % Monocytes (%) (Auto) 10.0 % Eosinophils (%) (Auto) 0.6 % Basophils (%) (Auto) 0.0 % Neutrophils # (Auto) 3.95 K/uL Lymphocytes # (Auto) 0.43 K/uL Monocytes # (Auto) 0.49 K/uL Eosinophils # (Auto) 0.03 K/uL Basophils # (Auto) 0.00 K/uL RDW Standard Deviation 52.5 fL RDW Coefficient of Variation 16.4 % Immature Granulocyte % (Auto) 0.2 % Immature Granulocyte # (Auto) 0.01 K/uL Platelet Estimate SIGNIFIC DECREASED Large Platelets 2+ Anisocytosis PRESENT Sodium Level 140 mmol/L Potassium Level 2.8 mmol/L Chloride Level 98 mmol/L Carbon Dioxide Level 32 mmol/L Anion Gap 10.0 mmol/L Blood Urea Nitrogen 71 mg/dl Creatinine 1.61 mg/dl Est Creatinine Clear Calc Drug Dose 32.7 ml/min Estimated GFR () 43.6 Estimated GFR (Non- 37.6 BUN/Creatinine Ratio 44.3 Random Glucose 75 mg/dl Calcium Level 8.1 mg/dl Bedside Glucose 94 mg/dl Assessment and Plan Patient is a 86 year old male seen for anemia, Hgb 5.4, baseline 8-10. 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 Also w hx of AVR, heart failure. Currently Troponin elevated w evidence of congestive heart failure. He has CKD, been on B12, iron supplement, Procrit. Possible anemia from chronic disease, ? blood loss from wounds, decubitus ulcer. He is w/o davina s/s of GI bleeding. Colonoscopies 2005, 2008 w adenomatous polyps Received 4U PRBC transfusion, Hgb 5.4 -> 8.8. He is AAOx3 now. BMs black but on iron supplements, last one brown smear. - Monitor H/H,transfuse prn - Keep NPO; EGD ordered but K came back 2.8, being replaced - will repeat at noon before deciding if EGD can be done today or defer till next week. - Nephrology follow, appreciate recs. I have seen, examined and agree with the plan as outlined by SERGIO Higginbotham as above. -Exam reveals soft abd -No signs of bleeding -Plan on EGD today or Tuesday Seferino Dodd M.D.
[2017-01-28] MEDS ORDERED: MIDAZOLAM HCL 1 MG/ML 2ML VIAL ONE (13:54)
--- NOTE | 2017-01-28 14:10 | GI REPORT ---
Procedure Date: 01/28/2017 2:00 PM Procedure: Upper GI endoscopy Indications: Melena Medicines: General Anesthesia Complications: No immediate complications. Estimated blood loss: None. Estimated Blood Loss: Estimated blood loss: none. Procedure: Pre-Anesthesia Assessment: - Pre-Anesthesia Assessment: - Prior to the procedure, a History and Physical was performed, and patient medications, allergies and sensitivities were reviewed. The patient's tolerance of previous anesthesia was reviewed. Please see [employer] for complete details. - The risks and benefits of the procedure and the sedation options and risks were discussed with the patient. All questions were answered and informed consent was obtained. - Patient identification and proposed procedure were verified prior to the procedure by the physician and the nurse. The procedure was verified in the pre-procedure area in the procedure room. After obtaining informed consent, the endoscope was passed carefully and meticuously under direct vision and only advanced when the lumen was clearly identified, C02 insuflation was utilized throughout the entirity of the procedure. Throughout the procedure, the patient's blood pressure, pulse, and oxygen saturations were monitored continuously. After obtaining informed consent, the endoscope was passed under direct vision. Throughout the procedure, the patient's blood pressure, pulse, and oxygen saturations were monitored continuously. The Scope was introduced through the mouth, and advanced to the second part of duodenum. The upper GI endoscopy was accomplished without difficulty. The patient tolerated the procedure well. Findings: LA Grade A (one or more mucosal breaks less than 5 mm, not extending between tops of 2 mucosal folds) esophagitis with no bleeding was found. The entire examined stomach was normal. Two non-bleeding superficial duodenal ulcers with a clean ulcer base (Doug Class III) were found in the duodenal bulb. The largest lesion was 4 mm in largest dimension. Impression: - LA Grade A reflux esophagitis. - Normal stomach. - Multiple non-bleeding duodenal ulcers with a clean ulcer base (Doug Class III). - No specimens collected. Recommendation: - Return patient to [facility] for [facility] care. - Use Prilosec (omeprazole) 40 mg PO BID for 2 months. Seferino Dodd MD 01/28/2017 2:09:55 PM This report has been signed electronically. Note Initiated On: 01/28/2017 2:00 PM I attest to the content of the Intraoperative Record and orders documented therein, exceptions below
[2017-01-28] MEDS ORDERED: LIDOCAINE HCL 2% 2 ML VIAL (20MG/ML) ONE (14:18)
[2017-01-28] MEDS ORDERED: PROPOFOL IV EMULSION 10 MG/ML 20 ML VIAL IV ONE (14:18)
[2017-01-28] MEDS ORDERED: PHENYLEPHRINE 100MCG/ML 5ML SYR ONE (14:18)
--- NOTE | 2017-01-28 14:28 | Anesthesiology Progress Note ---
Anesthesia Post Op Note Date & Time Jan 28, 2017 at 14:28 Vital Signs Pain Intensity: 0.0 Vital Signs Past 12 Hours Date Time Temp Pulse Resp B/P (MAP) Pulse Ox O2 Delivery O2 Flow Rate FiO2 01/28/17 14:14 92 16 99/57 (71) 100 Oxymask 6 01/28/17 13:48 36.5 92 22 103/49 (67) 91 Room Air 01/28/17 11:21 36.6 78 18 99/50 (66) 99 Room Air 01/28/17 08:02 36.6 95 18 111/52 (71) 98 2.0 01/28/17 07:37 Nasal Cannula 2.0 01/28/17 04:00 Nasal Cannula 2.0 01/28/17 03:35 36.6 96 20 116/60 (78) 99 Nasal Cannula 1.5 Notes Mental Status: alert / awake / arousable, participated in evaluation Pt Amnestic to Procedure: Yes Nausea / Vomiting: adequately controlled Pain: adequately controlled Airway Patency, RR, SpO2: stable & adequate BP & HR: stable & adequate Hydration State: stable & adequate Anesthetic Complications: no major complications apparent
--- NOTE | 2017-01-28 16:55 | Progress Note ---
Internal Med Progress Note Date of Service: Jan 28, 2017. Provider Documentation: SUBJECTIVE: feeling better want to eat no chest pain or sob no nausea afebrile OBJECTIVE: Vital Signs-as noted below Exam: General-alert and oriented. old and frail ENT-normal hearing Neck-no neck masses Lungs- cta b/l no wheezing or crackles Heart-s1 and s2 heard regular rate and rhythm no murmurs Abdomen-soft bowel sounds present no tenderness present no distension Extremities- no erythema wound vac on left foot seen Neuro-alert and oriented moves extremities Lab data as noted below. ASSESSMENT & PLAN: Profound ANEMIA hx of chronic anemia and receive procrit in the past directly sent by pcp for profound anemia presented with hb 5.4 received total of 4 units of prbc and hb 8.8 today has black stools but on iron pills stopped Zyvox plan for egd today by GI NAUSEA/VOMITING Normal lipase, normal LFTs. No abdominal pain no complaints today on clears CHRONIC SYSTOLIC CHF echo 08/29/16 EF: 45-50% close monitor as receiving prbc continue home lasix iv Lasix during prbc transfusion seems stable Hypokalemia K 2.8 today will replace. A-FIB rate 96 and controlled on beta norma pt hx Coumadin in past, but was d/c due to epistaxis and hx falls CAD No CP. 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 pancytopenia from sickness and medications? stopped zyvox as above M spike on previous spep f/u spep consulted hematology and appreciate inputs will f/u labs. DM HgbA1c 6.3 on 01/25/17 Lantus as per home NovoLog sliding scale Will monitor Arf on CKD stage 3 baseline CR 1.8-1.9. Today CR: 1.6 will f/u labs resolved nephrology on board DVT PROPHYLAXIS scds DISPOSITION monitor in tele Vital Signs: Date Time Temp Pulse Resp B/P (MAP) Pulse Ox O2 Delivery O2 Flow Rate FiO2 01/28/17 15:24 36.3 103 16 95/55 (68) 95 Room Air 01/28/17 14:44 96 16 106/55 (72) 98 Nasal Cannula 2 01/28/17 14:29 95 16 94/64 (74) 98 Nasal Cannula 2 01/28/17 14:14 92 16 99/57 (71) 100 Oxymask 6 01/28/17 13:48 36.5 92 22 103/49 (67) 91 Room Air 01/28/17 11:21 36.6 78 18 99/50 (66) 99 Room Air 01/28/17 08:02 36.6 95 18 111/52 (71) 98 2.0 01/28/17 07:37 Nasal Cannula 2.0 01/28/17 04:00 Nasal Cannula 2.0 01/28/17 03:35 36.6 96 20 116/60 (78) 99 Nasal Cannula 1.5 01/28/17 00:13 36.5 89 16 99/64 (76) 99 01/28/17 00:01 Nasal Cannula 2.0 01/27/17 22:36 36.6 87 18 104/64 100 2.0 01/27/17 22:33 84 117/58 01/27/17 22:03 86 101/50 99 2.0 01/27/17 21:36 76 101/47 2.0 01/27/17 21:08 81 104/64 2.0 01/27/17 20:51 106 103/58 2.0 01/27/17 20:36 86 104/70 2.0 01/27/17 20:21 99 18 112/66 99 2.0 01/27/17 20:19 36.6 91 18 108/55 98 2.0 01/27/17 20:07 36.7 95 18 90/49 92 01/27/17 20:00 Nasal Cannula 2.0 01/27/17 19:53 36.7 104 18 116/49 (71) 98 Nasal Cannula 1.5 Lab Results: Results Past 24 Hours Test 01/27/17 20:23 01/27/17 23:21 01/28/17 07:03 01/28/17 07:32 Range/Units Bedside Glucose 124 87 70-99 mg/dl Immature Platelet Fraction 19.4 0.9-8.3 % Peripheral Blood Smear Path Consult Absolute Reticulocyte Count < 0.02 0.02-0.10 10^6/uL Percent Reticulocyte Count < 0.5 0.5-2.0 % Vitamin B12 Level 624 211-911 pg/mL Folate > 24.00 >5.38 ng/mL White Blood Count 4.91 4.8-10.8 K/uL Red Blood Count 3.07 4.7-6.1 M/uL Hemoglobin 8.8 14.0-18.0 g/dL Hematocrit 27.2 42-52 % Mean Corpuscular Volume 88.6 80-100 fL Mean Corpuscular Hemoglobin 28.7 25-34 pg Mean Corpuscular Hemoglobin Concent 32.4 32-36 g/dl Platelet Count 30 130-400 K/uL Neutrophils (%) (Auto) 80.4 % Lymphocytes (%) (Auto) 8.8 % Monocytes (%) (Auto) 10.0 % Eosinophils (%) (Auto) 0.6 % Basophils (%) (Auto) 0.0 % Neutrophils # (Auto) 3.95 1.4-6.5 K/uL Lymphocytes # (Auto) 0.43 1.2-3.4 K/uL Monocytes # (Auto) 0.49 0.11-0.59 K/uL Eosinophils # (Auto) 0.03 0-0.5 K/uL Basophils # (Auto) 0.00 0-0.2 K/uL RDW Standard Deviation 52.5 36.4-46.3 fL RDW Coefficient of Variation 16.4 11.5-14.5 % Immature Granulocyte % (Auto) 0.2 % Immature Granulocyte # (Auto) 0.01 0.00-0.02 K/uL Platelet Estimate SIGNIFIC DECREASED Large Platelets 2+ Anisocytosis PRESENT Sodium Level 140 136-145 mmol/L Potassium Level 2.8 3.5-5.1 mmol/L Chloride Level 98 98-107 mmol/L Carbon Dioxide Level 32 21-32 mmol/L Anion Gap 10.0 3-11 mmol/L Blood Urea Nitrogen 71 7-18 mg/dl Creatinine 1.61 0.60-1.40 mg/dl Est Creatinine Clear Calc Drug Dose 32.7 ml/min Estimated GFR () 43.6 Estimated GFR (Non- 37.6 BUN/Creatinine Ratio 44.3 10-20 Random Glucose 75 70-99 mg/dl Calcium Level 8.1 8.5-10.1 mg/dl Test 01/28/17 11:01 01/28/17 12:42 01/28/17 14:18 01/28/17 16:26 Range/Units Bedside Glucose 94 91 70-99 mg/dl Potassium Level 3.3 3.5-5.1 mmol/L
[2017-01-28] MEDS: FUROSEMIDE 20 MG TAB PO SCH (17:10)
[2017-01-28 18:39] LABS: ALBUMIN 2.4 G/DL (3.8-4.8); GAMMA GLOBULIN 0.4 G/DL (0.8-1.7); MONOCLONAL PROTEIN BAND 1 2.1 G/DL (NOT DETECTED); MONOCLONAL PROTEIN BAND 2 0.2 G/DL (NOT DETECTED); TOTAL PROTEIN 5.8 G/DL (6.2-8.3)
[2017-01-28] MEDS ORDERED: PANTOprazole INJ 40 MG in SYRINGE 0 ML IV SCH (21:00)
[2017-01-28] MEDS: PANTOprazole SOD 40 MG TAB PO SCH (22:30)
[2017-01-29 03:59] VITALS: BP 92/56; PULSE 88; TEMP 36.7; O2SAT 95
[2017-01-29] MEDS: INSULIN ASPART 100 UNITS/ML 3 ML PEN SC SCH ×4 (07:00→20:16)
[2017-01-29 07:22] LABS: BUN/CREATININE RATIO 40.6 (10-20); CALCIUM 7.9 mg/dl (8.5-10.1); CREATININE 1.57 mg/dl (0.60-1.40); POTASSIUM 3.9 mmol/L (3.5-5.1)
[2017-01-29 07:26] VITALS: BP 102/65; PULSE 96; TEMP 36.8; O2SAT 92
[2017-01-29] MEDS: FINASTERIDE 5 MG TAB PO SCH (07:27)
[2017-01-29] MEDS: ASPIRIN 81 MG ECTAB PO SCH (07:28)
[2017-01-29] MEDS: FUROSEMIDE 40 MG TAB PO SCH (07:28)
[2017-01-29] MEDS: CHOLECALCIFEROL 1000 INTER.UNIT TAB PO SCH (07:28)
[2017-01-29] MEDS: METOPROLOL TARTRATE 25 MG TAB PO SCH ×2 (07:29→20:10)
[2017-01-29] MEDS: FERROUS SULFATE 325 MG TAB PO SCH ×3 (07:29→20:10)
[2017-01-29] MEDS: ASCORBIC ACID 500 MG TAB PO SCH (07:29)
[2017-01-29] MEDS: CEROVITE ADV FORMULA TAB PO SCH (07:29)
[2017-01-29] MEDS: POTASSIUM CHLORIDE 20 MEQ TABCR PO SCH (07:30)
[2017-01-29] MEDS: INSULIN GLARGINE SOLOSTAR 100 UNITS/ML 3 ML PEN SC SCH ×2 (07:32→20:16)
[2017-01-29] MEDS: PANTOprazole SOD 40 MG TAB PO SCH ×2 (07:33→20:10)
[2017-01-29 07:43] LABS: HEMATOCRIT 25.9 % (42-52); MEAN CELL VOLUME 89.9 fL (80-100); MEAN CORPUSCULAR HEMOGLOBIN 29.9 pg (25-34); MEAN CORPUSCULAR HGB CONC 33.2 g/dl (32-36); PLATELET COUNT 26 K/uL (130-400); RED BLOOD COUNT 2.88 M/uL (4.7-6.1); WHITE BLOOD COUNT 5.84 K/uL (4.8-10.8)
[2017-01-29 08:22] LABS: COMPLETE YES; EOS % 0.3 %; IG% 0.3 %; LYMPH % 9.4 %; LYMPH ABS # 0.55 K/uL (1.2-3.4); MONO % 13.7 %; NEUT % 76.3 %; PLT ESTIMATE DECREASED
[2017-01-29 10:26] VITALS: BP 108/66; PULSE 83; TEMP 36.3; O2SAT 92
[2017-01-29] MEDS: DAPTOmycin IV 500 MG in SYRINGE 0 ML IV SCH (10:49)
[2017-01-29 15:40] VITALS: BP 99/54; PULSE 87; TEMP 36.7; O2SAT 96
[2017-01-29] MEDS: FUROSEMIDE 20 MG TAB PO SCH (16:54)
--- NOTE | 2017-01-29 16:54 | Progress Note ---
Internal Med Progress Note Date of Service: Jan 29, 2017. Provider Documentation: SUBJECTIVE: Was nauseous and had an episode of vomiting today morning had bowel movement afebrile no sob or chest pain OBJECTIVE: Vital Signs-as noted below Exam: General-alert and oriented. old and frail ENT-normal hearing Neck-no neck masses Lungs- cta b/l no wheezing or crackles Heart-s1 and s2 heard regular rate and rhythm no murmurs Abdomen-soft bowel sounds present no tenderness present no distension Extremities- no erythema wound vac on left foot seen Neuro-alert and oriented moves extremities Lab data as noted below. ASSESSMENT & PLAN: Profound ANEMIA hx of chronic anemia and receive procrit in the past directly sent by pcp for profound anemia presented with hb 5.4 received total of 4 units of prbc and hb 8.8 today has black stools but on iron pills stopped Zyvox s/p egd yesterday and shows non bleeding gastric ulcers- PPI recommended NAUSEA/VOMITING Normal lipase, normal LFTs. No abdominal pain on full liquid diet had an episode of vomiting after breakfast today CHRONIC SYSTOLIC CHF echo 08/29/16 EF: 45-50% close monitor as receiving prbc continue home Lasix iv Lasix during prbc transfusion seems stable Hypokalemia K 2.8 today resolved A-FIB rate 96 and controlled on beta norma pt hx Coumadin in past, but was d/c due to epistaxis and hx falls CAD No CP. 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 pancytopenia from sickness and medications? stopped zyvox as above M spike on previous spep f/u spep consulted hematology and appreciate inputs platelets 26k today will f/u labs. DM HgbA1c 6.3 on 01/25/17 Lantus as per home NovoLog sliding scale Will monitor Arf on CKD stage 3 baseline CR 1.8-1.9. Today CR: 1.5 will f/u labs resolved nephrology on board DVT PROPHYLAXIS scds DISPOSITION monitor in tele pt/ot Vital Signs: Date Time Temp Pulse Resp B/P (MAP) Pulse Ox O2 Delivery O2 Flow Rate FiO2 01/29/17 16:00 Room Air 01/29/17 15:40 36.7 87 16 99/54 (69) 96 01/29/17 12:00 Room Air 01/29/17 10:26 36.3 83 18 108/66 (80) 92 Room Air 01/29/17 08:00 Room Air 01/29/17 07:26 36.8 96 20 102/65 (77) 92 Room Air 01/29/17 04:21 Nasal Cannula 2.0 01/29/17 03:59 36.7 88 18 92/56 (68) 95 Room Air 01/29/17 00:25 Nasal Cannula 2.0 01/28/17 23:59 36.8 104 20 99/55 (70) 92 Room Air 01/28/17 20:00 Nasal Cannula 2.0 01/28/17 19:36 36.5 105 18 101/47 (65) 93 Room Air Lab Results: Results Past 24 Hours Test 01/28/17 20:41 01/29/17 06:25 01/29/17 07:23 01/29/17 10:52 Range/Units Bedside Glucose 146 99 156 70-99 mg/dl White Blood Count 5.84 4.8-10.8 K/uL Red Blood Count 2.88 4.7-6.1 M/uL Hemoglobin 8.6 14.0-18.0 g/dL Hematocrit 25.9 42-52 % Mean Corpuscular Volume 89.9 80-100 fL Mean Corpuscular Hemoglobin 29.9 25-34 pg Mean Corpuscular Hemoglobin Concent 33.2 32-36 g/dl Platelet Count 26 130-400 K/uL Neutrophils (%) (Auto) 76.3 % Lymphocytes (%) (Auto) 9.4 % Monocytes (%) (Auto) 13.7 % Eosinophils (%) (Auto) 0.3 % Basophils (%) (Auto) 0.0 % Neutrophils # (Auto) 4.45 1.4-6.5 K/uL Lymphocytes # (Auto) 0.55 1.2-3.4 K/uL Monocytes # (Auto) 0.80 0.11-0.59 K/uL Eosinophils # (Auto) 0.02 0-0.5 K/uL Basophils # (Auto) 0.00 0-0.2 K/uL RDW Standard Deviation 52.3 36.4-46.3 fL RDW Coefficient of Variation 16.3 11.5-14.5 % Immature Granulocyte % (Auto) 0.3 % Immature Granulocyte # (Auto) 0.02 0.00-0.02 K/uL Platelet Estimate DECREASED Sodium Level 137 136-145 mmol/L Potassium Level 3.9 3.5-5.1 mmol/L Chloride Level 98 98-107 mmol/L Carbon Dioxide Level 32 21-32 mmol/L Anion Gap 7.0 3-11 mmol/L Blood Urea Nitrogen 64 7-18 mg/dl Creatinine 1.57 0.60-1.40 mg/dl Est Creatinine Clear Calc Drug Dose 33.6 ml/min Estimated GFR () 44.9 Estimated GFR (Non- 38.8 BUN/Creatinine Ratio 40.6 10-20 Random Glucose 99 70-99 mg/dl Calcium Level 7.9 8.5-10.1 mg/dl Magnesium Level 2.0 1.8-2.4 mg/dl Test 01/29/17 16:39 Range/Units
[2017-01-29 17:12] LABS: HEMATOCRIT 26.6 % (42-52); MEAN CELL VOLUME 90.8 fL (80-100); MEAN CORPUSCULAR HEMOGLOBIN 29.4 pg (25-34); RED BLOOD COUNT 2.93 M/uL (4.7-6.1); WHITE BLOOD COUNT 6.08 K/uL (4.8-10.8)
[2017-01-29 17:24] LABS: MEAN CORPUSCULAR HGB CONC 32.3 g/dl (32-36); PLATELET COUNT 30 K/uL (130-400)
[2017-01-29 17:25] LABS: ANISOCYTOSIS PRESENT; COMPLETE YES; EOS % 0.3 %; HYPOCHROMIA PRESENT; IG% 0.2 %; LARGE PLATELETS 1+; LYMPH % 10.4 %; LYMPH ABS # 0.63 K/uL (1.2-3.4); MONO % 14.5 %; NEUT % 74.6 %; PLT ESTIMATE SIGNIFIC DECREASED
[2017-01-29 19:00] VITALS: BP 115/52; PULSE 88; TEMP 36.4; O2SAT 95
[2017-01-30] VITALS (8 sets, daily range): BP systolic 94–114; BP diastolic 41–59; PULSE 67–103; TEMP 36.5–36.8; O2SAT 89–98
[2017-01-30] MEDS: ONDANSETRON INJ 2 MG/ML 2 ML VIAL IV PRN ×2 (00:11→23:30)
[2017-01-30 06:19] LABS: HEMATOCRIT 26.5 % (42-52); MEAN CELL VOLUME 91.4 fL (80-100); MEAN CORPUSCULAR HEMOGLOBIN 29.3 pg (25-34); MEAN CORPUSCULAR HGB CONC 32.1 g/dl (32-36); PLATELET COUNT 27 K/uL (130-400); WHITE BLOOD COUNT 5.92 K/uL (4.8-10.8)
[2017-01-30 06:20] LABS: COMPLETE YES; EOS % 0.8 %; IG% 0.3 %; LARGE PLATELETS 2+; LYMPH % 10.5 %; LYMPH ABS # 0.62 K/uL (1.2-3.4); MONO % 15.2 %; NEUT % 73.2 %; PLT ESTIMATE SIGNIFIC DECREASED; VACUOLIZATION 1+
[2017-01-30 06:25] LABS: BUN/CREATININE RATIO 38.6 (10-20); CALCIUM 8.4 mg/dl (8.5-10.1); CREATININE 1.61 mg/dl (0.60-1.40); MAGNESIUM 1.9 mg/dl (1.8-2.4); POTASSIUM 3.7 mmol/L (3.5-5.1)
[2017-01-30] MEDS: INSULIN ASPART 100 UNITS/ML 3 ML PEN SC SCH ×4 (07:00→20:42)
[2017-01-30] MEDS: METOPROLOL TARTRATE 25 MG TAB PO SCH ×2 (08:00→21:20)
[2017-01-30] MEDS: CEROVITE ADV FORMULA TAB PO SCH (08:00)
[2017-01-30] MEDS: FERROUS SULFATE 325 MG TAB PO SCH ×3 (08:01→21:20)
[2017-01-30] MEDS: ASCORBIC ACID 500 MG TAB PO SCH (08:01)
[2017-01-30] MEDS: PANTOprazole SOD 40 MG TAB PO SCH ×2 (08:01→21:20)
[2017-01-30] MEDS: ASPIRIN 81 MG ECTAB PO SCH (08:02)
[2017-01-30] MEDS: FINASTERIDE 5 MG TAB PO SCH (08:02)
[2017-01-30] MEDS: CHOLECALCIFEROL 1000 INTER.UNIT TAB PO SCH (08:02)
[2017-01-30] MEDS: FUROSEMIDE 40 MG TAB PO SCH (08:03)
[2017-01-30] MEDS: POTASSIUM CHLORIDE 20 MEQ TABCR PO SCH (08:03)
[2017-01-30] MEDS: INSULIN GLARGINE SOLOSTAR 100 UNITS/ML 3 ML PEN SC SCH ×2 (08:08→21:23)
[2017-01-30] MEDS: FUROSEMIDE 20 MG TAB PO SCH (16:39)
--- NOTE | 2017-01-30 17:23 | Progress Note ---
Internal Med Progress Note Date of Service: Jan 30, 2017. Provider Documentation: SUBJECTIVE: had an episode of vomiting again today morning denies any abdominal pain no sob or chest pain weak resting comfortably OBJECTIVE: Vital Signs-as noted below Exam: General-alert and oriented. old and frail ENT-normal hearing Neck-no neck masses Lungs- cta b/l no wheezing or crackles Heart-s1 and s2 heard regular rate and rhythm no murmurs Abdomen-soft bowel sounds present no tenderness present no distension Extremities- no erythema wound vac on left foot seen Neuro-alert and oriented moves extremities Lab data as noted below. ASSESSMENT & PLAN: 86M who was had sacral decubitus ulcer and wound vac on left foot and follows with wound clinic and was recently in SNF and was discharged home went to see PCP as he was feeling week and tired. Out patient labs showed profound anemia with hb 5.4 and he was direct admitted. s/p 4 units of prbc. hb stable in 8.5 range. s/p egd which showed gastric non bleeding ulcers. GI recommended PPI BID.Also was pancytopenic on presentation.Seen by hematology and recommended to stop Zyvox. ID placed on iv daptomycin in place of Zyvox. As per family patient was supposed to be on Zyvox for 3 months and had been for last one month on it.Also presented with ARF on CKD which is back to baseline Seen by GI, Nephrology, heme/onco and wound care and ID.leukopenia and anemia improved but still has thrombocytopenia. On full liquid diet and having intermittent vomiting. . Continue to monitor. To advance diet as tolerated. Pt/OT . Abx duration as per ID and wound care. Possible placement when stable. Profound ANEMIA hx of chronic anemia and receive procrit in the past directly sent by pcp for profound anemia presented with hb 5.4 received total of 4 units of prbc has black stools but on iron pills stopped Zyvox s/p egd 01/28/17 and shows non bleeding gastric ulcers- PPI recommended hb stable at 8.5 NAUSEA/VOMITING Normal lipase, normal LFTs. No abdominal pain on full liquid diet had an episode of vomiting after breakfast today will monitor CHRONIC SYSTOLIC CHF echo 08/29/16 EF: 45-50% continue home Lasix seems stable Hypokalemia K 2.8 resolved A-FIB rate 96 and controlled on beta norma pt hx Coumadin in past, but was d/c due to epistaxis and hx falls CAD No CP. 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 As per family was placed on zyvox for 3 months and received total of one month so far needs to discuss with ID and wound care regarding duration of iv daptomycin pancytopenia from sickness and medications? stopped Zyvox as above M spike on previous spep f/u spep consulted hematology and appreciate inputs- advised to stop zyvox leukopenia improved anemia improved with prbc transfusion platelets 26k today- will d/w Heme/onco will f/u labs. DM HgbA1c 6.3 on 01/25/17 Lantus as per home NovoLog sliding scale Will monitor Arf on CKD stage 3 baseline CR 1.8-1.9. Today CR: 1.6 will f/u labs resolved nephrology on board Nutrition on full liquid diet having intermittent vomiting will monitor DVT PROPHYLAXIS scds DISPOSITION monitor in tele pt/ot socia; service for d/c planning Vital Signs: Date Time Temp Pulse Resp B/P (MAP) Pulse Ox O2 Delivery O2 Flow Rate FiO2 01/30/17 16:00 Room Air 01/30/17 15:00 36.5 75 16 108/55 (72) 94 Room Air 01/30/17 12:18 36.5 103 114/57 (76) 89 01/30/17 12:06 90 18 92 Room Air 01/30/17 12:00 Room Air 01/30/17 08:13 36.5 67 16 106/59 (75) 91 Room Air 01/30/17 08:00 Room Air 01/30/17 04:00 Room Air 01/30/17 03:21 36.8 89 19 104/50 (68) 93 Room Air 01/30/17 00:05 36.8 82 18 94/51 (65) 98 Room Air 01/29/17 23:59 Room Air 01/29/17 20:00 Room Air 01/29/17 19:00 36.4 88 16 115/52 (73) 95 Room Air Lab Results: Results Past 24 Hours Test 01/29/17 20:11 01/30/17 05:38 01/30/17 06:20 01/30/17 11:08 Range/Units Bedside Glucose 167 120 172 70-99 mg/dl White Blood Count 5.92 4.8-10.8 K/uL Red Blood Count 2.90 4.7-6.1 M/uL Hemoglobin 8.5 14.0-18.0 g/dL Hematocrit 26.5 42-52 % Mean Corpuscular Volume 91.4 80-100 fL Mean Corpuscular Hemoglobin 29.3 25-34 pg Mean Corpuscular Hemoglobin Concent 32.1 32-36 g/dl Platelet Count 27 130-400 K/uL Neutrophils (%) (Auto) 73.2 % Lymphocytes (%) (Auto) 10.5 % Monocytes (%) (Auto) 15.2 % Eosinophils (%) (Auto) 0.8 % Basophils (%) (Auto) 0.0 % Neutrophils # (Auto) 4.33 1.4-6.5 K/uL Lymphocytes # (Auto) 0.62 1.2-3.4 K/uL Monocytes # (Auto) 0.90 0.11-0.59 K/uL Eosinophils # (Auto) 0.05 0-0.5 K/uL Basophils # (Auto) 0.00 0-0.2 K/uL RDW Standard Deviation 53.0 36.4-46.3 fL RDW Coefficient of Variation 16.1 11.5-14.5 % Immature Granulocyte % (Auto) 0.3 % Immature Granulocyte # (Auto) 0.02 0.00-0.02 K/uL Nucleated RBC Absolute Count (auto) 0.02 0-0 K/uL Nucleated Red Blood Cells % 0.4 % Toxic Vacuolation 1+ Platelet Estimate SIGNIFIC DECREASED Large Platelets 2+ Sodium Level 138 136-145 mmol/L Potassium Level 3.7 3.5-5.1 mmol/L Chloride Level 98 98-107 mmol/L Carbon Dioxide Level 36 21-32 mmol/L Anion Gap 4.0 3-11 mmol/L Blood Urea Nitrogen 62 7-18 mg/dl Creatinine 1.61 0.60-1.40 mg/dl Est Creatinine Clear Calc Drug Dose 32.7 ml/min Estimated GFR () 43.6 Estimated GFR (Non- 37.6 BUN/Creatinine Ratio 38.6 10-20 Random Glucose 104 70-99 mg/dl Calcium Level 8.4 8.5-10.1 mg/dl Magnesium Level 1.9 1.8-2.4 mg/dl Test 01/30/17 16:21 Range/Units Bedside Glucose 133 70-99 mg/dl
[2017-01-31] VITALS (9 sets, daily range): BP systolic 96–115; BP diastolic 57–65; PULSE 72–104; TEMP 36.3–36.8; O2SAT 91–95
[2017-01-31 06:32] LABS: MEAN CORPUSCULAR HGB CONC 32.2 g/dl (32-36)
[2017-01-31 06:34] LABS: HEMATOCRIT 26.1 % (42-52); MEAN CELL VOLUME 91.9 fL (80-100); MEAN CORPUSCULAR HEMOGLOBIN 29.6 pg (25-34); RED BLOOD COUNT 2.84 M/uL (4.7-6.1); WHITE BLOOD COUNT 7.56 K/uL (4.8-10.8)
[2017-01-31 06:50] LABS: PLATELET COUNT 33 K/uL (130-400)
[2017-01-31 06:51] LABS: BASO % 0.1 %; BASO ABS # 0.01 K/uL (0-0.2); COMPLETE YES; EOS % 0.4 %; IG% 0.3 %; LARGE PLATELETS 2+; LYMPH ABS # 0.68 K/uL (1.2-3.4); MONO % 14.9 %; NEUT % 75.3 %; PLT ESTIMATE DECREASED
[2017-01-31 07:07] LABS: BUN/CREATININE RATIO 31.4 (10-20); CALCIUM 8.2 mg/dl (8.5-10.1); CREATININE 1.74 mg/dl (0.60-1.40); MAGNESIUM 1.9 mg/dl (1.8-2.4); POTASSIUM 3.9 mmol/L (3.5-5.1)
[2017-01-31] MEDS: INSULIN ASPART 100 UNITS/ML 3 ML PEN SC SCH ×4 (07:32→20:43)
[2017-01-31] MEDS: INSULIN GLARGINE SOLOSTAR 100 UNITS/ML 3 ML PEN SC SCH ×2 (11:17→20:48)
[2017-01-31] MEDS: ASPIRIN 81 MG ECTAB PO SCH (11:18)
[2017-01-31] MEDS: CEROVITE ADV FORMULA TAB PO SCH (11:18)
[2017-01-31] MEDS: PANTOprazole SOD 40 MG TAB PO SCH ×2 (11:18→20:43)
[2017-01-31] MEDS: CHOLECALCIFEROL 1000 INTER.UNIT TAB PO SCH (11:18)
[2017-01-31] MEDS: DAPTOmycin IV 500 MG in SYRINGE 0 ML IV SCH (11:18)
[2017-01-31] MEDS: METOPROLOL TARTRATE 25 MG TAB PO SCH ×2 (11:18→12:26)
[2017-01-31] MEDS: FUROSEMIDE 40 MG TAB PO SCH (11:19)
[2017-01-31] MEDS: ASCORBIC ACID 500 MG TAB PO SCH (11:19)
[2017-01-31] MEDS: FERROUS SULFATE 325 MG TAB PO SCH ×3 (11:19→20:42)
[2017-01-31] MEDS: POTASSIUM CHLORIDE 20 MEQ TABCR PO SCH (11:20)
[2017-01-31] MEDS: FINASTERIDE 5 MG TAB PO SCH (11:21)
--- NOTE | 2017-01-31 17:19 | Progress Note ---
Internal Med Progress Note Date of Service: Jan 31, 2017. Provider Documentation: SUBJECTIVE: denies of any complain of SOB , YEE , feels better wondering why still he is getting liquid diet no dark stool so far no fever or chills no episode of nausea /vomiting , tolerating diet advanced to Diabetic /AHA diet OBJECTIVE: Vital Signs-as noted below Exam: General-chronically ill appearing, no apparent distress, conversing Eyes-sclera non icteric, PERRLA/EOMI ENT-normal exam , Neck-no thyromegaly, trachea midline Lungs-no wheeze or rales noted Heart-regular S1/S2 Abdomen-soft, non tender Extremities-left foot wound vac present , sacral decub ulcer , present since admission Neuro-no focal deficit , conversing , generalized weakness for chronic illness Lab data as noted below. ASSESSMENT & PLAN: Profound ANEMIA hx of chronic anemia and receive procrit in the past directly sent by pcp for profound anemia presented with hb 5.4 received total of 4 units of prbc Hb stable ~8 post transfusion s/p egd 01/28/17 and shows non bleeding gastric ulcers- PPI recommended appreciate input form Heme Onc possible pancytopenia due to chronic illness /medication induced -chronic Zyvox tx -leading to bone marrow suppression stopped Zyvox follow CBC CHRONIC SYSTOLIC CHF echo 08/29/16 EF: 45-50% clinically appears to be vol depleted hold Lasix for GLEN /dehydration cont to monitor Vol status and renal function Hypokalemia corrected on K supplement A-FIB rate controlled on beta norma pt was on Coumadin in past, but was d/c due to epistaxis and hx falls CAD . Troponin 0.125 mostly NSTEMI from demand ischemia from anemia no complain of chest pain monitor S/P L TOE AMPUTATIONS AND SACRAL DECUBITUS ULCER pt has wound vac in place wound care consulted ID consulted and Zyvox D/lizbeth for pancytopenia. started on IV Daptomycin will need rat exterminator Abx ( As per family was placed on zyvox for 3 months and received total of one month so far) will discuss with ID and wound care regarding duration of iv daptomycin pancytopenia from chronic illness /vs medication induced stopped Zyvox as above M spike on previous spep f/u spep consulted hematology and appreciate inputs- advised to stop zyvox leukopenia improved anemia improved with prbc transfusion DM TYPE 2 HgbA1c 6.3 on 01/25/17 Lantus as per home NovoLog sliding property valuer GLEN on CKD stage 3 Cr elevated 1.6-> 1.7 clinically appears to be dehydrated hold Lasix for next 24-48 hrs follow PRP avoid Nephrotoxins, contrast studies nephrology on board DVT PROPHYLAXIS scds high risk for DVT given limited mobility pharmacological anticoagulation avoided due to anemia /thrombocytopenia DISPOSITION lives at home with son will need jail ABx , wound care , wound vac management will benefit with SNF pt/ot-eval appreciated -recommend in patient rehab pt was at [facility] social service following for d/c planning Vital Signs: Date Time Temp Pulse Resp B/P (MAP) Pulse Ox O2 Delivery O2 Flow Rate FiO2 01/31/17 16:00 Room Air 01/31/17 15:20 36.5 87 16 107/57 (74) 93 Room Air 01/31/17 12:00 Room Air 01/31/17 11:55 36.6 87 16 103/58 (73) 93 01/31/17 08:00 Room Air 01/31/17 07:45 36.8 104 18 115/64 (81) 91 Room Air 01/31/17 04:00 Room Air 01/31/17 03:47 36.6 72 18 106/60 (75) 92 Room Air 01/30/17 23:59 Room Air 01/30/17 23:59 Room Air 01/30/17 23:17 36.5 83 19 97/44 (61) 92 Room Air 01/30/17 20:00 Room Air 01/30/17 19:15 36.7 78 18 99/41 (60) 94 Room Air Lab Results: Results Past 24 Hours Test 01/30/17 20:17 01/31/17 06:06 01/31/17 06:14 Range/Units Bedside Glucose 143 124 70-99 mg/dl White Blood Count 7.56 4.8-10.8 K/uL Red Blood Count 2.84 4.7-6.1 M/uL Hemoglobin 8.4 14.0-18.0 g/dL Hematocrit 26.1 42-52 % Mean Corpuscular Volume 91.9 80-100 fL Mean Corpuscular Hemoglobin 29.6 25-34 pg Mean Corpuscular Hemoglobin Concent 32.2 32-36 g/dl Platelet Count 33 130-400 K/uL Neutrophils (%) (Auto) 75.3 % Lymphocytes (%) (Auto) 9.0 % Monocytes (%) (Auto) 14.9 % Eosinophils (%) (Auto) 0.4 % Basophils (%) (Auto) 0.1 % Neutrophils # (Auto) 5.69 1.4-6.5 K/uL Lymphocytes # (Auto) 0.68 1.2-3.4 K/uL Monocytes # (Auto) 1.13 0.11-0.59 K/uL Eosinophils # (Auto) 0.03 0-0.5 K/uL Basophils # (Auto) 0.01 0-0.2 K/uL RDW Standard Deviation 53.4 36.4-46.3 fL RDW Coefficient of Variation 16.1 11.5-14.5 % Immature Granulocyte % (Auto) 0.3 % Immature Granulocyte # (Auto) 0.02 0.00-0.02 K/uL Nucleated RBC Absolute Count (auto) 0.03 0-0 K/uL Nucleated Red Blood Cells % 0.3 % Platelet Estimate DECREASED Large Platelets 2+ Sodium Level 138 136-145 mmol/L Potassium Level 3.9 3.5-5.1 mmol/L Chloride Level 97 98-107 mmol/L Carbon Dioxide Level 33 21-32 mmol/L Anion Gap 8.0 3-11 mmol/L Blood Urea Nitrogen 55 7-18 mg/dl Creatinine 1.74 0.60-1.40 mg/dl Est Creatinine Clear Calc Drug Dose 30.3 ml/min Estimated GFR () 39.7 Estimated GFR (Non- 34.2 BUN/Creatinine Ratio 31.4 10-20 Random Glucose 99 70-99 mg/dl Calcium Level 8.2 8.5-10.1 mg/dl Magnesium Level 1.9 1.8-2.4 mg/dl
[2017-01-31] MEDS: BOOST GLUCOSE CONTROL PO SCH (17:46)
--- NOTE | 2017-02-01 05:05 | Infectious Disease Progress Nt ---
Progress Note Date of Service Jan 31, 2017. Subjective Pt evaluation today including: conversation w/ patient, chart review, lab review, review of studies, conversation w/ rn lactation consultant, review of inpatient medication list Patient offers no new complaints today. Melena has subsided for now. Remains afebrile. Tolerating daptomycin without apparent difficulty. All Other Systems: Reviewed and Negative Medications Current Inpatient Medications Medications (Trade) Dose Ordered Sig/Rosemarie Route Start Time Stop Time Status Last Admin Dose Admin Acetaminophen (Tylenol Tab) 650 mg Q4H PRN PO 01/26/17 13:45 02/25/17 13:44 Ondansetron HCl (Zofran Inj) 4 mg Q6H PRN IV 01/26/17 15:00 02/25/17 14:59 01/30/17 23:30 4 MG Insulin Glargine (Lantus Solostar Pen) 5 units Q12 SC 01/26/17 21:00 02/25/17 20:59 01/31/17 20:48 5 UNITS Insulin Aspart (novoLOG ASPART) SLIDING SCALE If C... ACHS SC 01/26/17 16:15 02/25/17 16:14 01/31/17 18:20 1 UNITS Glucose (Glucose 40% Gel) 15-30 GRAMS 15 GRAMS... UD PRN PO 01/26/17 15:15 02/25/17 15:14 Glucose (Glucose Chew Tab) 4-8 Tablets 4 Tabl... UD PRN PO 01/26/17 15:15 02/25/17 15:14 Dextrose (Dextrose 50% 50ML Syringe) 25-50ML OF 50% DW IV FOR... UD PRN IV 01/26/17 15:15 02/25/17 15:14 Glucagon (Glucagon Inj) 1 mg UD PRN SQ 01/26/17 15:15 02/25/17 15:14 Aspirin (Ecotrin Tab) 81 mg QAM PO 01/27/17 09:00 02/26/17 08:59 01/31/17 11:18 81 MG Finasteride (Proscar Tab) 5 mg DAILY PO 01/27/17 09:00 02/26/17 08:59 01/31/17 11:21 5 MG Folic Acid (Folvite Tab) 1 mg QAM PO 01/27/17 09:00 02/26/17 08:59 01/31/17 11:19 1 MG Metoprolol Tartrate (Lopressor Tab) 25 mg BID PO 01/26/17 21:00 02/25/17 20:59 01/31/17 11:18 25 MG Multivitamins/ Minerals (Multivitamin W/ Minerals Tab) 1 tab QAM PO 01/27/17 09:00 02/26/17 08:59 01/31/17 11:18 1 TAB Potassium Chloride (Klor-Con Tab) 20 meq DAILY PO 01/27/17 09:00 02/26/17 08:59 01/31/17 11:20 20 MEQ Ascorbic Acid (Vitamin C Tab) 500 mg DAILY PO 01/27/17 09:00 02/26/17 08:59 01/31/17 11:19 500 MG Cholecalciferol (Vitamin D Tab) 2,000 inter.unit QAM PO 01/27/17 09:00 02/26/17 08:59 01/31/17 11:18 2,000 INTER.UNIT Ferrous Sulfate (Feosol Tab) 325 mg TID PO 01/26/17 21:00 02/25/17 20:59 01/31/17 20:42 325 MG Furosemide (Lasix Tab) 20 mg DAILY@1700 PO 01/26/17 21:00 02/25/17 20:59 Future Hold 01/30/17 16:39 20 MG Furosemide (Lasix Tab) 40 mg QAM PO 01/27/17 09:00 02/26/17 08:59 Future Hold 01/31/17 11:19 40 MG Daptomycin 500 mg/ Syringe 10 ml @ 5 mls/min Q48H IV 01/27/17 11:00 02/06/17 10:59 01/31/17 11:18 5 MLS/MIN Pantoprazole Sodium (Protonix Tab) 40 mg BID PO 01/28/17 21:00 02/27/17 20:59 01/31/17 20:43 40 MG Enteral Nutritional Formula (Boost Glucose Control) 1 can TIDM PO 01/31/17 16:45 03/02/17 16:44 01/31/17 17:46 1 CAN Objective Vital Signs Date Time Temp Pulse Resp B/P (MAP) Pulse Ox O2 Delivery O2 Flow Rate FiO2 02/01/17 01:00 Room Air 11/13/17 23:27 36.3 80 18 101/65 (77) 95 Room Air 01/31/17 20:00 94 Room Air 2.0 01/31/17 19:08 36.8 90 18 96/59 (71) 94 Room Air 01/31/17 17:55 36.5 87 16 93 2.0 01/31/17 16:00 Room Air 01/31/17 15:20 36.5 87 16 107/57 (74) 93 Room Air 01/31/17 12:00 Room Air 01/31/17 11:55 36.6 87 16 103/58 (73) 93 01/31/17 08:00 Room Air 01/31/17 07:45 36.8 104 18 115/64 (81) 91 Room Air Physical Exam General Appearance: WD/WN, no apparent distress Eyes: normal inspection, sclerae normal ENT: normal ENT inspection, pharynx normal Neck: supple, no adenopathy, trachea midline Respiratory/Chest: chest non-tender, lungs clear, normal breath sounds, no respiratory distress Cardiovascular: no gallop, no murmur, + irregularly irregular Abdomen: normal bowel sounds, non tender, soft, no organomegaly Extremities: non-tender, no calf tenderness Neurologic/Psychiatric: alert, oriented x 3 Skin: normal color, no rash, + pertinent finding (Vac left foot) Lymphatic: no adenopathy Laboratory Results Last 24 Hours Test 01/31/17 06:06 01/31/17 06:14 01/31/17 16:00 01/31/17 20:18 White Blood Count 7.56 K/uL Red Blood Count 2.84 M/uL Hemoglobin 8.4 g/dL Hematocrit 26.1 % Mean Corpuscular Volume 91.9 fL Mean Corpuscular Hemoglobin 29.6 pg Mean Corpuscular Hemoglobin Concent 32.2 g/dl Platelet Count 33 K/uL Neutrophils (%) (Auto) 75.3 % Lymphocytes (%) (Auto) 9.0 % Monocytes (%) (Auto) 14.9 % Eosinophils (%) (Auto) 0.4 % Basophils (%) (Auto) 0.1 % Neutrophils # (Auto) 5.69 K/uL Lymphocytes # (Auto) 0.68 K/uL Monocytes # (Auto) 1.13 K/uL Eosinophils # (Auto) 0.03 K/uL Basophils # (Auto) 0.01 K/uL RDW Standard Deviation 53.4 fL RDW Coefficient of Variation 16.1 % Immature Granulocyte % (Auto) 0.3 % Immature Granulocyte # (Auto) 0.02 K/uL Nucleated RBC Absolute Count (auto) 0.03 K/uL Nucleated Red Blood Cells % 0.3 % Platelet Estimate DECREASED Large Platelets 2+ Sodium Level 138 mmol/L Potassium Level 3.9 mmol/L Chloride Level 97 mmol/L Carbon Dioxide Level 33 mmol/L Anion Gap 8.0 mmol/L Blood Urea Nitrogen 55 mg/dl Creatinine 1.74 mg/dl Est Creatinine Clear Calc Drug Dose 30.3 ml/min Estimated GFR () 39.7 Estimated GFR (Non- 34.2 BUN/Creatinine Ratio 31.4 Random Glucose 99 mg/dl Calcium Level 8.2 mg/dl Magnesium Level 1.9 mg/dl Bedside Glucose 124 mg/dl 152 mg/dl 159 mg/dl Test 02/01/17 04:44 Assessment and Plan patient with recent gangrene of the left foot status post partial amputation, with most recent cultures positive for coagulase negative Staph. It is not clear whether Zyvox playing a role in patient's anemia. Will therefore discontinue and start patient on daptomycin while in hospital. Will follow.
[2017-02-01 07:38] VITALS: BP 116/61; PULSE 113; TEMP 36.8; O2SAT 94
[2017-02-01 08:00] LABS: MEAN CORPUSCULAR HGB CONC 31.5 g/dl (32-36)
[2017-02-01 08:04] LABS: HEMATOCRIT 25.1 % (42-52); MEAN CELL VOLUME 92.3 fL (80-100); RED BLOOD COUNT 2.72 M/uL (4.7-6.1); WHITE BLOOD COUNT 6.23 K/uL (4.8-10.8)
[2017-02-01 08:23] LABS: PLATELET COUNT 32 K/uL (130-400)
[2017-02-01 08:24] LABS: PLT ESTIMATE DECREASED
[2017-02-01] MEDS: CEROVITE ADV FORMULA TAB PO SCH (08:32)
[2017-02-01] MEDS: METOPROLOL TARTRATE 25 MG TAB PO SCH ×2 (08:32→20:32)
[2017-02-01] MEDS: FINASTERIDE 5 MG TAB PO SCH (08:33)
[2017-02-01] MEDS: FERROUS SULFATE 325 MG TAB PO SCH ×3 (08:33→20:32)
[2017-02-01] MEDS: POTASSIUM CHLORIDE 20 MEQ TABCR PO SCH (08:34)
[2017-02-01] MEDS: PANTOprazole SOD 40 MG TAB PO SCH ×2 (08:34→20:32)
[2017-02-01] MEDS: ASCORBIC ACID 500 MG TAB PO SCH (08:34)
[2017-02-01] MEDS: ASPIRIN 81 MG ECTAB PO SCH (08:35)
[2017-02-01] MEDS: CHOLECALCIFEROL 1000 INTER.UNIT TAB PO SCH (08:35)
[2017-02-01] MEDS: BOOST GLUCOSE CONTROL PO SCH ×3 (08:36→17:12)
[2017-02-01 08:37] LABS: BUN/CREATININE RATIO 33.3 (10-20); CALCIUM 8.1 mg/dl (8.5-10.1); CREATININE 1.7 mg/dl (0.60-1.40); POTASSIUM 3.6 mmol/L (3.5-5.1)
[2017-02-01] MEDS: INSULIN ASPART 100 UNITS/ML 3 ML PEN SC SCH ×4 (08:39→20:35)
[2017-02-01] MEDS: INSULIN GLARGINE SOLOSTAR 100 UNITS/ML 3 ML PEN SC SCH ×2 (08:49→20:36)
[2017-02-01] MEDS: ONDANSETRON INJ 2 MG/ML 2 ML VIAL IV PRN (10:25)
[2017-02-01 15:57] VITALS: BP 118/61; PULSE 93; TEMP 35.9; O2SAT 94
[2017-02-01] MEDS ORDERED: FURO-85 PO (19:00)
[2017-02-01] MEDS ORDERED: PRT40 PO (19:00)
[2017-02-01] MEDS ORDERED: NUTR-7 PO (19:00)
--- NOTE | 2017-02-01 19:27 | Progress Note ---
Internal Med Progress Note Date of Service: Feb 01, 2017. Provider Documentation: SUBJECTIVE: feels tired , but better than yesterday no complain of SOB mentions that he did walked few steps with PT today but had to take rest frequently as he will get tired Son and Daughter present in the room discussed rehab option after discharge form hospital initially pt was reluctant and wanted to return home with Son's care his son and daughter both explained to pt with his current condition -it will be unrealistic to come home /Son will not be able be there 11/10 for care going to rehab for few weeks to gain strength then returning home will be the best option pt is agreeable OBJECTIVE: Vital Signs-as noted below Exam: General-chronically ill appearing, no apparent distress, conversing Eyes-sclera non icteric, PERRLA/EOMI ENT-normal exam , Neck-no thyromegaly, trachea midline Lungs-no wheeze or rales noted Heart-regular S1/S2 Abdomen-soft, non tender Extremities-left foot wound vac present , sacral decub ulcer , present since admission Neuro-no focal deficit , conversing , generalized weakness for chronic illness Lab data as noted below. ASSESSMENT & PLAN: Profound ANEMIA/THROMBOCYTOPENIA hx of chronic anemia and receive Procrit in the past directly sent by pcp for profound anemia Hb 5,4 ; platelet 44 K received total of 4 units of prbc no evidence of active bleeding noted Hb improved to ~8 post transfusion s/p EGD 01/28/17 and shows non bleeding gastric ulcers- PPI recommended for 4 weeks appreciate input form Heme Onc Peripheral blood smear : Total white count normal , marked predominance of mature segmental neutrophils without left shift or dysplasia , possible pancytopenia due to chronic illness -CKD, PVD , s/p partial amputation of left left foot with ongoing infection /medication induced -chronic Zyvox tx - leading to bone marrow suppression Prior to admission pt has stable chronic anemia with Hb between 7.4-9 platelet count 01/03 : 140 K 01/10: 101K 01/26: 44 K anemia /thrombocytopenia due to chronic infection /illness worsened with Abx tx with Zyvox stopped Zyvox monitor CBC , transfusion or PRBC as needed for Hb < 7 , symptoms or acute drop /Hge avoid antiplatelets Aspirin D/lizbeth continue to hold till Platelet count > 100 K pt will need weekly CBC check as out pt till Anemia and Thrombocytopenia improves to baseline CHRONIC SYSTOLIC CHF echo 08/29/16 EF: 45-50% clinically appears to be vol depleted hold Lasix for GLEN /dehydration cont to monitor Vol status and renal function Hypokalemia corrected on K supplement A-FIB rate controlled on beta norma not a candidate for chronic anticoagulation pt was on Coumadin in past, but was d/c due to epistaxis and hx falls CAD . Troponin 0.125 mostly NSTEMI from demand ischemia from anemia no complain of chest pain Aspirin on hold for Thrombocytopenia cont Beta norma and statin PVD: leading partial amputation of left toe with non healing wound continue to hold aspirin for low platelet count on Statin S/P L TOE AMPUTATIONS AND SACRAL DECUBITUS ULCER hx of recent gangrene of the left foot status post partial amputation, recent cultures positive for coagulase negative Staph. wound care consulted-appreciate input ; pt has wound vac in place cont local wound care and Wound vac ID consulted and Zyvox D/lizbeth for pancytopenia. on IV Daptomycin will need long-term Abx DM TYPE 2 HgbA1c 6.3 on 01/25/17 Lantus as per home NovoLog sliding car tracer GLEN on CKD stage 3 Cr elevated 1.6-> 1.7 clinically appears to be dehydrated hold Lasix for next 24-48 hrs follow PRP avoid Nephrotoxins, contrast studies nephrology on board DVT PROPHYLAXIS scds high risk for DVT given limited mobility pharmacological anticoagulation avoided due to anemia /thrombocytopenia DISPOSITION given significant functional declined, ongoing wound care pt will need SNF discussed with Son and Daughter today both agrees pt will need short term rehab prior to return home with son Pt is agreeable with the suggestion was at [facility] to place referral to Son and daughter also wants to have referral to [facility] and [facility] will update marketing sales manager in AM Vital Signs: Date Time Temp Pulse Resp B/P (MAP) Pulse Ox O2 Delivery O2 Flow Rate FiO2 02/01/17 16:00 Room Air 02/01/17 15:57 35.9 93 18 118/61 (80) 94 Room Air 02/01/17 08:00 Room Air 02/01/17 07:38 36.8 113 18 116/61 (79) 94 Room Air 02/01/17 01:00 Room Air 01/31/17 23:27 36.3 80 18 101/65 (77) 95 Room Air 01/31/17 20:00 94 Room Air 2.0 Lab Results: Results Past 24 Hours Test 01/31/17 20:18 02/01/17 07:28 02/01/17 11:23 02/01/17 16:29 Range/Units Bedside Glucose 159 150 135 70-99 mg/dl White Blood Count 6.23 4.8-10.8 K/uL Red Blood Count 2.72 4.7-6.1 M/uL Hemoglobin 7.9 14.0-18.0 g/dL Hematocrit 25.1 42-52 % Mean Corpuscular Volume 92.3 80-100 fL Mean Corpuscular Hemoglobin 29.0 25-34 pg Mean Corpuscular Hemoglobin Concent 31.5 32-36 g/dl RDW Standard Deviation 53.2 36.4-46.3 fL RDW Coefficient of Variation 16.2 11.5-14.5 % Platelet Count 32 130-400 K/uL Platelet Estimate DECREASED Sodium Level 139 136-145 mmol/L Potassium Level 3.6 3.5-5.1 mmol/L Chloride Level 98 98-107 mmol/L Carbon Dioxide Level 34 21-32 mmol/L Anion Gap 6.0 3-11 mmol/L Blood Urea Nitrogen 57 7-18 mg/dl Creatinine 1.70 0.60-1.40 mg/dl Est Creatinine Clear Calc Drug Dose 31.0 ml/min Estimated GFR () 40.8 Estimated GFR (Non- 35.2 BUN/Creatinine Ratio 33.3 10-20 Random Glucose 111 70-99 mg/dl Calcium Level 8.1 8.5-10.1 mg/dl
--- NOTE | 2017-02-01 19:33 | Discharge Instructions ---
Discharge Instructions Date of Service Feb 01, 2017. Admission Reason for Admission: Low Hemoglobin Discharge Discharge Diagnosis / Problem: ANEMIA /THROMBOCYTOPENIA /LEFT TOE NON HEALING WOUND Discharge Goals Goal(s): Decrease discomfort, Improve function, Increase independence, Improve disease control, Diagnostic testing, Therapeutic intervention Activity Recommendations Activity Level: Assistance Required Therapies: Physical Therapy, Occupational Therapy Weightbearing Status: Left non-weightbearing . Additional Information Patient informed of condition: Yes Advance Directives: Yes DNR: Yes Level of Care: Acute Rehab Communicable Disease: No Prognosis: Stable [place] Catheter: No Instructions / Follow-Up Instructions / Follow-Up FOLLOW UP WITH WOUND CARE CLINIC IN A WEEK FOLLOW UP WITH ID DR ORTIZ IN 1-2 WEEKS LAB WORK : VANCOMYCIN TROUGH LEVEL TOMORROW 02/05/17 AT 7: 30 AM BEFORE THE [address] DOSE PLEASE FAX ALL LAB REPORT TO DR ORTIZ OFFICE GOAL TROUGH LEVEL 15-20 MCG /ML DRAW VANCOMYCIN TROUGH LEVEL ONCE A WEEK BUN /CREATININE LEVEL ONCE A WEEK -WHILE ON IV VANCOMYCIN LAB WORK: COMPLETE BLOOD COUNT /BASIC METABOLIC PANEL Tuesday02/07/17 THEN COMPLETE BLOOD COUNT /BASIC METABOLIC PANEL -EVERY WEEK FOR AT LEAST 4 WEEKS TILL LAB VALUE ( ANEMIA /RENAL FUNCTION ) STABILIZES AVOID -ASPIRIN , MOTRIN , NAPROXEN , ALEVE -NO NSAID'S FOR PAIN Current Hospital Diet Patient's current hospital diet: Diabetes Type 2 Diet, AHA Diet (Heart Healthy) Discharge Diet Recommended Diet: AHA Diet (Heart Healthy), Diabetes Type 2 Diet Procedures Procedures Performed: EGD Pending Studies Studies pending at discharge: yes List of pending studies: VANCOMYCIN TROUGH LEVEL TOMORROW 02/05/17 AT 7: 30 AM BEFORE THE [address] RD DOSE PLEASE FAX ALL LAB REPORT TO DR ORTIZ OFFICE GOAL TROUGH LEVEL 15-20 MCG /ML DRAW VANCOMYCIN TROUGH LEVEL ONCE A WEEK BUN /CREATININE LEVEL ONCE A WEEK -WHILE ON IV VANCOMYCIN LAB WORK: COMPLETE BLOOD COUNT /BASIC METABOLIC PANEL IN 2 DAYS THEN COMPLETE BLOOD COUNT /BASIC METABOLIC PANEL -EVERY WEEK FOR AT LEAST 4 WEEKS TILL LAB VALUE ( ANEMIA /RENAL FUNCTION ) STABILIZES Physician Orders On Transfer Dressing Changes: 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 Stage II pressure ulcer left buttocks region wound care : wound care with Aquacel Ag and gauze change daily Medical Emergencies . Who to Call and When: Medical Emergencies: If at any time you feel your situation is an emergency, please call 911 immediately. . Non-Emergent Contact Non-Emergency issues call your: Primary Care Provider . . "Provider Documentation" section prepared by Noris Neil. . Core Measure Problem Core Measures: None
[2017-02-01 20:39] VITALS: BP 107/63; PULSE 101
[2017-02-01 23:46] VITALS: BP 103/62; PULSE 80; TEMP 36.8; O2SAT 96
[2017-02-02 07:51] VITALS: BP 111/62; PULSE 88; TEMP 36.4; O2SAT 93
[2017-02-02] MEDS: BOOST GLUCOSE CONTROL PO SCH ×3 (08:20→17:30)
[2017-02-02] MEDS: PANTOprazole SOD 40 MG TAB PO SCH ×2 (08:23→20:23)
[2017-02-02] MEDS: FERROUS SULFATE 325 MG TAB PO SCH ×3 (08:24→20:22)
[2017-02-02] MEDS: CEROVITE ADV FORMULA TAB PO SCH (08:24)
[2017-02-02] MEDS: CHOLECALCIFEROL 1000 INTER.UNIT TAB PO SCH (08:24)
[2017-02-02] MEDS: POTASSIUM CHLORIDE 20 MEQ TABCR PO SCH (08:24)
[2017-02-02] MEDS: FINASTERIDE 5 MG TAB PO SCH (08:25)
[2017-02-02] MEDS: ASCORBIC ACID 500 MG TAB PO SCH (08:25)
[2017-02-02] MEDS: METOPROLOL TARTRATE 25 MG TAB PO SCH ×2 (08:25→20:26)
[2017-02-02] MEDS: INSULIN GLARGINE SOLOSTAR 100 UNITS/ML 3 ML PEN SC SCH ×2 (08:28→20:29)
[2017-02-02] MEDS: INSULIN ASPART 100 UNITS/ML 3 ML PEN SC SCH ×4 (08:29→20:30)
[2017-02-02 08:44] LABS: BUN/CREATININE RATIO 32.8 (10-20); CALCIUM 8.4 mg/dl (8.5-10.1); CREATININE 1.55 mg/dl (0.60-1.40); POTASSIUM 3.8 mmol/L (3.5-5.1)
[2017-02-02 09:02] LABS: HEMATOCRIT 25.2 % (42-52); MEAN CELL VOLUME 91.3 fL (80-100); MEAN CORPUSCULAR HEMOGLOBIN 28.6 pg (25-34); MEAN CORPUSCULAR HGB CONC 31.3 g/dl (32-36); MEAN PLATELET VOLUME 11.4 fL (7.4-10.4); PLATELET COUNT 59 K/uL (130-400); PLT ESTIMATE DECREASED; RED BLOOD COUNT 2.76 M/uL (4.7-6.1); WHITE BLOOD COUNT 6.21 K/uL (4.8-10.8)
--- NOTE | 2017-02-02 09:53 | Progress Note ---
Progress Note Date of Service Feb 02, 2017. Progress Note ATTENDING NOTE : d/W ID Dr Morelos pt;s most recent cultures positive for coagulase negative Staph. has been on Daptomycin will change to IV Vancomycin ( less expensive option ) will need 6 weeks of Abx tx
[2017-02-02] MEDS ORDERED: VANCOMYCIN CONSULT ACTIVE PRN (10:30)
[2017-02-02] MEDS ORDERED: VANCOMYCIN INJ 1,750 MG in SODIUM CHLORIDE 0.9% 500ML 500 ML IV ONE (10:30)
[2017-02-02 11:00] VITALS: O2SAT 93
--- NOTE | 2017-02-02 11:32 | Infectious Disease Progress Nt ---
Progress Note Date of Service Feb 02, 2017. Subjective Pt evaluation today including: conversation w/ patient, physical exam, chart review, lab review, review of studies, conversation w/ x ray consultant, review of inpatient medication list No new complaints today. Remains weak and fatigued. No fever. All Other Systems: Reviewed and Negative Medications Current Inpatient Medications Medications (Trade) Dose Ordered Sig/Rosemarie Route Start Time Stop Time Status Last Admin Dose Admin Acetaminophen (Tylenol Tab) 650 mg Q4H PRN PO 01/26/17 13:45 02/25/17 13:44 Ondansetron HCl (Zofran Inj) 4 mg Q6H PRN IV 01/26/17 15:00 02/25/17 14:59 02/01/17 10:25 4 MG Insulin Glargine (Lantus Solostar Pen) 5 units Q12 SC 01/26/17 21:00 02/25/17 20:59 02/02/17 08:28 5 UNITS Insulin Aspart (novoLOG ASPART) SLIDING SCALE If C... ACHS SC 01/26/17 16:15 02/25/17 16:14 02/02/17 08:29 1 UNITS Glucose (Glucose 40% Gel) 15-30 GRAMS 15 GRAMS... UD PRN PO 01/26/17 15:15 02/25/17 15:14 Glucose (Glucose Chew Tab) 4-8 Tablets 4 Tabl... UD PRN PO 01/26/17 15:15 02/25/17 15:14 Dextrose (Dextrose 50% 50ML Syringe) 25-50ML OF 50% DW IV FOR... UD PRN IV 01/26/17 15:15 02/25/17 15:14 Glucagon (Glucagon Inj) 1 mg UD PRN SQ 01/26/17 15:15 02/25/17 15:14 Finasteride (Proscar Tab) 5 mg DAILY PO 01/27/17 09:00 02/26/17 08:59 02/02/17 08:25 5 MG Folic Acid (Folvite Tab) 1 mg QAM PO 01/27/17 09:00 02/26/17 08:59 02/02/17 08:24 1 MG Metoprolol Tartrate (Lopressor Tab) 25 mg BID PO 01/26/17 21:00 02/25/17 20:59 02/02/17 08:25 25 MG Multivitamins/ Minerals (Multivitamin W/ Minerals Tab) 1 tab QAM PO 01/27/17 09:00 02/26/17 08:59 02/02/17 08:24 1 TAB Potassium Chloride (Klor-Con Tab) 20 meq DAILY PO 01/27/17 09:00 02/26/17 08:59 02/02/17 08:24 20 MEQ Ascorbic Acid (Vitamin C Tab) 500 mg DAILY PO 01/27/17 09:00 02/26/17 08:59 02/02/17 08:25 500 MG Cholecalciferol (Vitamin D Tab) 2,000 inter.unit QAM PO 01/27/17 09:00 02/26/17 08:59 02/02/17 08:24 2,000 INTER.UNIT Ferrous Sulfate (Feosol Tab) 325 mg TID PO 01/26/17 21:00 02/25/17 20:59 02/02/17 08:24 325 MG Furosemide (Lasix Tab) 20 mg DAILY@1700 PO 01/26/17 21:00 02/25/17 20:59 Future Hold 01/30/17 16:39 20 MG Furosemide (Lasix Tab) 40 mg QAM PO 01/27/17 09:00 02/26/17 08:59 Future Hold 01/31/17 11:19 40 MG Pantoprazole Sodium (Protonix Tab) 40 mg BID PO 01/28/17 21:00 02/27/17 20:59 02/02/17 08:23 40 MG Enteral Nutritional Formula (Boost Glucose Control) 1 can TIDM PO 01/31/17 16:45 03/02/17 16:44 02/02/17 08:20 1 CAN Vancomycin HCl 1750 mg/Sodium Chloride 535 ml @ 200 mls/hr 1030 ONCE IV 02/02/17 10:30 02/02/17 13:10 02/02/17 11:06 200 MLS/HR Vancomycin HCl 1250 mg/Sodium Chloride 275 ml @ 125 mls/hr Q24H IV 02/03/17 08:00 03/10/17 07:59 Vancomycin HCl (Consult) 1 ea UD PRN N/A 02/02/17 10:30 03/04/17 10:29 Objective Vital Signs Date Time Temp Pulse Resp B/P (MAP) Pulse Ox O2 Delivery O2 Flow Rate FiO2 02/02/17 11:00 93 Room Air 02/02/17 07:51 36.4 88 14 111/62 (78) 93 Room Air 02/02/17 00:25 Room Air 02/01/17 23:46 36.8 80 18 103/62 (76) 96 Room Air 02/01/17 20:39 101 107/63 (78) 02/01/17 16:00 Room Air 02/01/17 15:57 35.9 93 18 118/61 (80) 94 Room Air Physical Exam General Appearance: WD/WN, no apparent distress, + thin Eyes: normal inspection, sclerae normal ENT: normal ENT inspection, pharynx normal Neck: supple, no adenopathy, trachea midline Respiratory/Chest: chest non-tender, lungs clear, normal breath sounds, no respiratory distress Cardiovascular: no gallop, no murmur, + irregularly irregular Abdomen: normal bowel sounds, non tender, soft, no organomegaly Extremities: non-tender, no calf tenderness Neurologic/Psychiatric: alert, oriented x 3 Skin: normal color, no rash, + pertinent finding (Dressing in place left foot) Lymphatic: no adenopathy Laboratory Results Last 24 Hours Test 02/01/17 16:29 02/01/17 20:16 02/02/17 07:40 02/02/17 07:41 Bedside Glucose 135 mg/dl 146 mg/dl 97 mg/dl White Blood Count 6.21 K/uL Red Blood Count 2.76 M/uL Hemoglobin 7.9 g/dL Hematocrit 25.2 % Mean Corpuscular Volume 91.3 fL Mean Corpuscular Hemoglobin 28.6 pg Mean Corpuscular Hemoglobin Concent 31.3 g/dl RDW Standard Deviation 52.4 fL RDW Coefficient of Variation 16.1 % Platelet Count 59 K/uL Mean Platelet Volume 11.4 fL Platelet Estimate DECREASED Sodium Level 140 mmol/L Potassium Level 3.8 mmol/L Chloride Level 100 mmol/L Carbon Dioxide Level 36 mmol/L Anion Gap 4.0 mmol/L Blood Urea Nitrogen 51 mg/dl Creatinine 1.55 mg/dl Est Creatinine Clear Calc Drug Dose 34.0 ml/min Estimated GFR () 45.6 Estimated GFR (Non- 39.4 BUN/Creatinine Ratio 32.8 Random Glucose 85 mg/dl Calcium Level 8.4 mg/dl Assessment and Plan patient with recent gangrene of the left foot status post partial amputation, with most recent cultures positive for coagulase negative Staph. It is not clear whether Zyvox played a role in patient's anemia. As discussed with hospitalist service, patient to be changed to IV vancomycin to allow for easier transfer to [facility] facility. We will continue to follow while in hospital.
[2017-02-02] MEDS: ONDANSETRON INJ 2 MG/ML 2 ML VIAL IV PRN (11:36)
--- NOTE | 2017-02-02 12:26 | Pharmacy Progress Note ---
Pharmacy Abx Initial Consult Date of Service Feb 02, 2017. Pharmacy Dosing Scope Date of Consult: 02/02/17 Consultation requested by: Dr. Neil Pharmacy is consulted to initiate Vancomycin IV/PO dosing therapy, order appropriate labs and adjust drug dose/frequency. Subjective The patient is a 86 year old male admitted on Jan 26, 2017 at 13:03. Objective Height (Feet): 5 Height (Inches): 10.00 Weight (Kilograms): 73.200 Vital Signs (Past 12Hrs) Vital Signs Past 12 Hours Date Time Temp Pulse Resp B/P (MAP) Pulse Ox O2 Delivery O2 Flow Rate FiO2 02/02/17 11:00 93 Room Air 02/02/17 07:51 36.4 88 14 111/62 (78) 93 Room Air 02/02/17 00:25 Room Air Lab Results (24Hrs) Laboratory Tests (24 Hours) Test 02/02/17 07:41 White Blood Count 6.21 K/uL (4.8-10.8) Micro Results No micro this admission. Most recent culture grew coagulase negative staph (no sensitivities). Risk Factors for Resistance * Hospitalization for 48 hours or more within the past 90 days * Current hospitalization > 5 days * Immunocompromised (chronic steroid therapy, chemotherapy, immunomodulators) * History of infection with a multidrug-resistant organism: E.coli, right toe drainage 10/26/16 * Recent antimicrobial use; invanz, vancomycin, zosyn, zyvox Assessment & Plan Assessment 86 year old male admitted with recurrent left foot infection s/p partial amputation in the setting of severe PVD and CKD. * Patient was on Zyvox PO BID as an outpatient. This was discontinued on admission d/t anemia. * Patient was then placed on daptomycin IV from 01/27-02/02 am. * Changed to Vanc IV on 02/02 to allow for easier transfer to SNF. Plan Vancomycin IV * Loading dose: 1750 mg (24 mg/kg) * Maintenance dose: 1250 mg IV (17 mg/kg) every 24 hours * Goal trough level : 15 to 20 mcg/mL * Trough level ordered for 02/05/17- consider checking level sooner if Scr increases Discharge Recommendations: * Monitor Scr 3x/week initially * Monitor vanc trough level (30 min prior to dose) prior to the 3rd maintenance dose on 02/05. Monitor trough level every 3-4 days until level is within goal range x 2 consecutive checks, then may extend to weekly monitoring. Pharmacy will continue to follow and will adjust dose/frequency as necessary. Thank you.
[2017-02-02 15:14] VITALS: BP 117/58; PULSE 86; TEMP 36.3; O2SAT 95
--- NOTE | 2017-02-02 17:06 | Progress Note ---
Internal Med Progress Note Date of Service: Feb 02, 2017. Provider Documentation: SUBJECTIVE: feels better today no complain of SOB , appetite improved willing to go to rehab for short time after being discharged from hospital OBJECTIVE: Vital Signs-as noted below Exam: General-chronically ill appearing, no apparent distress, conversing Eyes-sclera non icteric, PERRLA/EOMI ENT-normal exam , Neck-no thyromegaly, trachea midline Lungs-no wheeze or rales noted Heart-regular S1/S2 Abdomen-soft, non tender Extremities-left foot wound vac present , sacral decub ulcer , present since admission Neuro-no focal deficit , conversing , generalized weakness for chronic illness Lab data as noted below. ASSESSMENT & PLAN: Profound ANEMIA/THROMBOCYTOPENIA hx of chronic anemia and receive Procrit in the past directly sent by pcp for profound anemia Hb 5,4 ; platelet 44 K received total of 4 units of prbc no evidence of active bleeding noted remained stable 7.9 post tranfusion s/p EGD 01/28/17 and shows non bleeding gastric ulcers- PPI recommended for 4 weeks appreciate input form Heme Onc Peripheral blood smear : Total white count normal , marked predominance of mature segmental neutrophils without left shift or dysplasia , possible pancytopenia due to chronic illness -CKD, PVD , s/p partial amputation of left left foot with ongoing infection /medication induced -chronic Zyvox tx - leading to bone marrow suppression Prior to admission pt has stable chronic anemia with Hb between 7.4-9 platelet count 16 : 140 K 1023: 101K 01/26: 44 K anemia /thrombocytopenia due to chronic infection /illness worsened with Abx tx with Zyvox stopped Zyvox monitor CBC , transfusion or PRBC as needed for Hb < 7 , symptoms or acute drop /Hge avoid antiplatelets Aspirin D/lizbeth continue to hold till Platelet count > 100 K pt will need weekly CBC check as out pt till Anemia and Thrombocytopenia improves to baseline CHRONIC SYSTOLIC CHF echo 08/29/16 EF: 45-50% clinically appears to be vol depleted hold Lasix for GLEN /dehydration cont to monitor Vol status and renal function Hypokalemia corrected on K supplement A-FIB rate controlled on beta norma not a candidate for chronic anticoagulation pt was on Coumadin in past, but was d/c due to epistaxis and hx falls CAD . Troponin 0.125 mostly NSTEMI from demand ischemia from anemia no complain of chest pain Aspirin on hold for Thrombocytopenia cont Beta norma and statin PVD: leading partial amputation of left toe with non healing wound continue to hold aspirin for low platelet count on Statin S/P L TOE AMPUTATIONS AND SACRAL DECUBITUS ULCER hx of recent gangrene of the left foot status post partial amputation, recent cultures positive for coagulase negative Staph. wound care consulted-appreciate input ; pt has wound vac in place cont local wound care and Wound vac ID consulted and Zyvox D/lizbeth for pancytopenia. Abx changed to IV Vancomycin will need 6 weeks of tx DM TYPE 2 HgbA1c 6.3 on 01/25/17 Lantus as per home NovoLog sliding table cover folder GLEN on CKD stage 3 resolved cr improved to baseline follow PRP avoid Nephrotoxins, contrast studies nephrology on board DVT PROPHYLAXIS scds high risk for DVT given limited mobility pharmacological anticoagulation avoided due to anemia /thrombocytopenia DISPOSITION referral made for SNF medically stable to transfer to rehab Vital Signs: Date Time Temp Pulse Resp B/P (MAP) Pulse Ox O2 Delivery O2 Flow Rate FiO2 02/02/17 20:30 56 111/55 (73) 02/02/17 20:00 Room Air 02/02/17 18:00 93 Room Air 02/02/17 15:14 36.3 86 14 117/58 (77) 95 Room Air 02/02/17 11:00 93 Room Air 02/02/17 07:51 36.4 88 14 111/62 (78) 93 Room Air 02/02/17 00:25 Room Air 02/01/17 23:46 36.8 80 18 103/62 (76) 96 Room Air Lab Results: Results Past 24 Hours Test 02/02/17 07:40 02/02/17 07:41 02/02/17 11:37 02/02/17 16:26 Range/Units Bedside Glucose 97 146 222 70-99 mg/dl White Blood Count 6.21 4.8-10.8 K/uL Red Blood Count 2.76 4.7-6.1 M/uL Hemoglobin 7.9 14.0-18.0 g/dL Hematocrit 25.2 42-52 % Mean Corpuscular Volume 91.3 80-100 fL Mean Corpuscular Hemoglobin 28.6 25-34 pg Mean Corpuscular Hemoglobin Concent 31.3 32-36 g/dl RDW Standard Deviation 52.4 36.4-46.3 fL RDW Coefficient of Variation 16.1 11.5-14.5 % Platelet Count 59 130-400 K/uL Mean Platelet Volume 11.4 7.4-10.4 fL Platelet Estimate DECREASED Sodium Level 140 136-145 mmol/L Potassium Level 3.8 3.5-5.1 mmol/L Chloride Level 100 98-107 mmol/L Carbon Dioxide Level 36 21-32 mmol/L Anion Gap 4.0 3-11 mmol/L Blood Urea Nitrogen 51 7-18 mg/dl Creatinine 1.55 0.60-1.40 mg/dl Est Creatinine Clear Calc Drug Dose 34.0 ml/min Estimated GFR () 45.6 Estimated GFR (Non- 39.4 BUN/Creatinine Ratio 32.8 10-20 Random Glucose 85 70-99 mg/dl Calcium Level 8.4 8.5-10.1 mg/dl Test 02/02/17 19:51 Range/Units Bedside Glucose 184 70-99 mg/dl
[2017-02-02 18:00] VITALS: O2SAT 93
[2017-02-02 20:30] VITALS: BP 111/55; PULSE 56
[2017-02-02 23:35] VITALS: BP 112/66; PULSE 87; TEMP 36.3; O2SAT 95
[2017-02-03 07:20] VITALS: BP 113/68; PULSE 102; TEMP 36.3; O2SAT 92
[2017-02-03 07:35] LABS: HEMATOCRIT 26.1 % (42-52); MEAN CELL VOLUME 91.9 fL (80-100); MEAN CORPUSCULAR HEMOGLOBIN 29.2 pg (25-34); MEAN CORPUSCULAR HGB CONC 31.8 g/dl (32-36); RED BLOOD COUNT 2.84 M/uL (4.7-6.1); WHITE BLOOD COUNT 7.08 K/uL (4.8-10.8)
[2017-02-03 08:03] LABS: MEAN PLATELET VOLUME 11.1 fL (7.4-10.4); PLATELET COUNT 82 K/uL (130-400)
[2017-02-03] MEDS: BOOST GLUCOSE CONTROL PO SCH ×3 (08:07→17:00)
[2017-02-03] MEDS: FERROUS SULFATE 325 MG TAB PO SCH ×3 (08:07→21:07)
[2017-02-03] MEDS: METOPROLOL TARTRATE 25 MG TAB PO SCH ×2 (08:08→21:07)
[2017-02-03] MEDS: POTASSIUM CHLORIDE 20 MEQ TABCR PO SCH (08:08)
[2017-02-03] MEDS: FINASTERIDE 5 MG TAB PO SCH (08:09)
[2017-02-03] MEDS: CEROVITE ADV FORMULA TAB PO SCH (08:09)
[2017-02-03] MEDS: PANTOprazole SOD 40 MG TAB PO SCH ×2 (08:09→21:08)
[2017-02-03] MEDS: CHOLECALCIFEROL 1000 INTER.UNIT TAB PO SCH (08:10)
[2017-02-03] MEDS: ASCORBIC ACID 500 MG TAB PO SCH (08:10)
[2017-02-03 08:11] LABS: BUN/CREATININE RATIO 31.2 (10-20); CALCIUM 8.2 mg/dl (8.5-10.1); CREATININE 1.56 mg/dl (0.60-1.40)
[2017-02-03] MEDS: INSULIN ASPART 100 UNITS/ML 3 ML PEN SC SCH ×4 (08:16→21:02)
[2017-02-03] MEDS: INSULIN GLARGINE SOLOSTAR 100 UNITS/ML 3 ML PEN SC SCH ×2 (08:17→21:02)
[2017-02-03] MEDS: VANCOMYCIN INJ 1,250 MG in SODIUM CHLORIDE 0.9% 250ML 250 ML IV SCH (09:07)
[2017-02-03 10:00] VITALS: O2SAT 92
[2017-02-03 15:01] VITALS: BP 115/71; PULSE 81; TEMP 36.3; O2SAT 99
[2017-02-03 15:30] VITALS: O2SAT 99
--- NOTE | 2017-02-03 18:56 | Progress Note ---
Internal Med Progress Note Date of Service: Feb 03, 2017. Provider Documentation: SUBJECTIVE: feels fine offers no complain no dizzy spell or lightheadedness OBJECTIVE: Vital Signs-as noted below Exam: General-chronically ill appearing, no apparent distress, conversing Eyes-sclera non icteric, PERRLA/EOMI ENT-normal exam , Neck-no thyromegaly, trachea midline Lungs-no wheeze or rales noted Heart-regular S1/S2 Abdomen-soft, non tender Extremities-left foot wound vac present , sacral decub ulcer , present since admission Neuro-no focal deficit , conversing , generalized weakness for chronic illness Lab data as noted below. ASSESSMENT & PLAN: Profound ANEMIA/THROMBOCYTOPENIA improved hx of chronic anemia and receive Procrit in the past directly sent by pcp for profound anemia Hb 5,4 ; platelet 44 K received total of 4 units of prbc no evidence of active bleeding noted remained stable 7.9 post tranfusion s/p EGD 01/28/17 and shows non bleeding gastric ulcers- PPI recommended for 4 weeks appreciate input form Heme Onc Peripheral blood smear : Total white count normal , marked predominance of mature segmental neutrophils without left shift or dysplasia , possible pancytopenia due to chronic illness -CKD, PVD , s/p partial amputation of left left foot with ongoing infection /medication induced -chronic Zyvox tx - leading to bone marrow suppression Prior to admission pt has stable chronic anemia with Hb between 7.4-9 platelet count 1016 : 140 K 1023: 101K 01/26: 44 K anemia /thrombocytopenia due to chronic infection /illness worsened with Abx tx with Zyvox stopped Zyvox monitor CBC , transfusion or PRBC as needed for Hb < 7 , symptoms or acute drop /Hge avoid antiplatelets Aspirin D/lizbeth continue to hold till Platelet count > 100 K pt will need weekly CBC check as out pt till Anemia and Thrombocytopenia improves to baseline CHRONIC SYSTOLIC CHF echo 08/29/16 EF: 45-50% clinically appears to be vol depleted hold Lasix for GLEN /dehydration cont to monitor Vol status and renal function Hypokalemia corrected on K supplement A-FIB rate controlled on beta norma not a candidate for chronic anticoagulation pt was on Coumadin in past, but was d/c due to epistaxis and hx falls CAD . Troponin 0.125 mostly NSTEMI from demand ischemia from anemia no complain of chest pain Aspirin on hold for Thrombocytopenia cont Beta norma and statin PVD: leading partial amputation of left toe with non healing wound continue to hold aspirin for low platelet count on Statin S/P L TOE AMPUTATIONS AND SACRAL DECUBITUS ULCER hx of recent gangrene of the left foot status post partial amputation, recent cultures positive for coagulase negative Staph. wound care consulted-appreciate input ; pt has wound vac in place cont local wound care and Wound vac ID consulted and Zyvox D/lizbeth for pancytopenia. Abx changed to IV Vancomycin will need 6 weeks of tx DM TYPE 2 HgbA1c 6.3 on 01/25/17 Lantus as per home NovoLog sliding slitter and rewinder GLEN on CKD stage 3 resolved cr improved to baseline follow PRP avoid Nephrotoxins, contrast studies nephrology on board DVT PROPHYLAXIS scds high risk for DVT given limited mobility pharmacological anticoagulation avoided due to anemia /thrombocytopenia DISPOSITION referral made for SNF medically stable to transfer to rehab plan to transfer to [facility] for SNF tomorrow daughter will provide transport Vital Signs: Date Time Temp Pulse Resp B/P (MAP) Pulse Ox O2 Delivery O2 Flow Rate FiO2 02/04/17 07:00 36.3 79 18 105/57 (73) 97 Room Air 02/04/17 00:04 36.4 80 18 108/54 (72) 98 Room Air 02/04/17 00:00 Room Air 02/03/17 21:04 93 121/66 (84) 02/03/17 15:30 99 Room Air 02/03/17 15:01 36.3 81 16 115/71 (86) 99 02/03/17 10:00 92 Room Air Lab Results: Results Past 24 Hours Test 02/03/17 11:24 02/03/17 16:31 02/03/17 20:17 02/04/17 07:18 Range/Units Bedside Glucose 167 161 192 70-99 mg/dl
[2017-02-03 21:04] VITALS: BP 121/66; PULSE 93
[2017-02-04 00:04] VITALS: BP 108/54; PULSE 80; TEMP 36.4; O2SAT 98
[2017-02-04 07:00] VITALS: BP 105/57; PULSE 79; TEMP 36.3; O2SAT 97
[2017-02-04 07:51] LABS: HEMATOCRIT 24.3 % (42-52); MEAN CELL VOLUME 91.4 fL (80-100); MEAN CORPUSCULAR HEMOGLOBIN 28.9 pg (25-34); MEAN CORPUSCULAR HGB CONC 31.7 g/dl (32-36); MEAN PLATELET VOLUME 10.9 fL (7.4-10.4); PLATELET COUNT 106 K/uL (130-400); RED BLOOD COUNT 2.66 M/uL (4.7-6.1); WHITE BLOOD COUNT 6.54 K/uL (4.8-10.8)
[2017-02-04 08:17] LABS: BUN/CREATININE RATIO 30.3 (10-20); CALCIUM 8.2 mg/dl (8.5-10.1); CREATININE 1.52 mg/dl (0.60-1.40); POTASSIUM 4.1 mmol/L (3.5-5.1)
[2017-02-04] MEDS: VANCOMYCIN INJ 1,250 MG in SODIUM CHLORIDE 0.9% 250ML 250 ML IV SCH (08:18)
[2017-02-04] MEDS: BOOST GLUCOSE CONTROL PO SCH ×2 (08:18→12:18)
[2017-02-04] MEDS: METOPROLOL TARTRATE 25 MG TAB PO SCH (08:19)
[2017-02-04] MEDS: CHOLECALCIFEROL 1000 INTER.UNIT TAB PO SCH (08:19)
[2017-02-04] MEDS: FERROUS SULFATE 325 MG TAB PO SCH ×2 (08:20→13:45)
[2017-02-04] MEDS: PANTOprazole SOD 40 MG TAB PO SCH (08:20)
[2017-02-04] MEDS: FINASTERIDE 5 MG TAB PO SCH (08:20)
[2017-02-04] MEDS: CEROVITE ADV FORMULA TAB PO SCH (08:21)
[2017-02-04] MEDS: POTASSIUM CHLORIDE 20 MEQ TABCR PO SCH (08:21)
[2017-02-04] MEDS: ASCORBIC ACID 500 MG TAB PO SCH (08:22)
[2017-02-04] MEDS: INSULIN ASPART 100 UNITS/ML 3 ML PEN SC SCH ×2 (08:27→12:21)
[2017-02-04] MEDS: INSULIN GLARGINE SOLOSTAR 100 UNITS/ML 3 ML PEN SC SCH (08:28)
[2017-02-04] MEDS ORDERED: VANC1INJ94 IV (10:32)
[2017-02-04 12:06] VITALS: BP 105/57; PULSE 79; TEMP 36.3; O2SAT 97
--- NOTE | 2017-02-04 14:06 | DIAGNOSTIC IMAGING REPORT ---
CHEST ONE VIEW PORTABLE CLINICAL HISTORY: picc placement right arm line placement COMPARISON STUDY: 01/26/2017 FINDINGS: Right-sided PICC catheter place in superior vena cava. No evidence pneumothorax. Chronic basilar pleural reactive and parenchymal infiltrative change unaltered from the prior study. IMPRESSION: PICC catheter placed in the superior vena cava. No evidence pneumothorax. The above report was generated using voice recognition software. It may contain grammatical, syntax or spelling errors. Electronically signed by: Morteza King M.D. 02/04/2017 2:05 PM Dictated Date/Time: 02/04/2017 2:05 PM
--- NOTE | 2017-02-04 14:52 | Progress Note ---
Internal Med Progress Note Date of Service: Feb 04, 2017. Provider Documentation: SUBJECTIVE: sitting up on chair , offers no complain no fever or chills stable to be transferred to [facility] for rehab today OBJECTIVE: Vital Signs-as noted below Exam: General-chronically ill appearing, no apparent distress, conversing Eyes-sclera non icteric, PERRLA/EOMI ENT-normal exam , Neck-no thyromegaly, trachea midline Lungs-no wheeze or rales noted Heart-regular S1/S2 Abdomen-soft, non tender Extremities-left foot wound vac present , sacral decub ulcer , present since admission Neuro-no focal deficit , conversing , generalized weakness for chronic illness Lab data as noted below. ASSESSMENT & PLAN: Profound ANEMIA/THROMBOCYTOPENIA improved hx of chronic anemia and receive Procrit in the past directly sent by pcp for profound anemia Hb 5,4 ; platelet 44 K received total of 4 units of prbc no evidence of active bleeding noted remained stable 7.9 post transfusion s/p EGD 01/28/17 and shows non bleeding gastric ulcers- PPI recommended for 4 weeks appreciate input form Heme Onc Peripheral blood smear : Total white count normal , marked predominance of mature segmental neutrophils without left shift or dysplasia , possible pancytopenia due to chronic illness -CKD, PVD , s/p partial amputation of left left foot with ongoing infection /medication induced -chronic Zyvox tx - leading to bone marrow suppression Prior to admission pt has stable chronic anemia with Hb between 7.4-9 platelet count 16 : 140 K 10/23: 101K 01/26: 44 K anemia /thrombocytopenia due to chronic infection /illness worsened with Abx tx with Zyvox stopped Zyvox monitor CBC , transfusion or PRBC as needed for Hb < 7 , symptoms or acute drop /Hge avoid antiplatelets Aspirin D/lizbeth continue to hold till Platelet count > 100 K pt will need weekly CBC check as out pt till Anemia and Thrombocytopenia improves to baseline CHRONIC SYSTOLIC CHF echo 08/29/16 EF: 45-50% clinically appears to be vol depleted hold Lasix for GLEN /dehydration cont to monitor Vol status and renal function Hypokalemia corrected on K supplement A-FIB rate controlled on beta norma not a candidate for chronic anticoagulation pt was on Coumadin in past, but was d/c due to epistaxis and hx falls CAD . Troponin 0.125 mostly NSTEMI from demand ischemia from anemia no complain of chest pain Aspirin on hold for Thrombocytopenia cont Beta norma and statin PVD: leading partial amputation of left toe with non healing wound continue to hold aspirin for low platelet count on Statin S/P L TOE AMPUTATIONS AND SACRAL DECUBITUS ULCER hx of recent gangrene of the left foot status post partial amputation, recent cultures positive for coagulase negative Staph. wound care consulted-appreciate input ; pt has wound vac in place cont local wound care and Wound vac ID consulted and Zyvox D/lizbeth for pancytopenia. 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 GLEN on CKD stage 3 resolved cr improved to baseline follow PRP avoid Nephrotoxins, contrast studies nephrology on board DVT PROPHYLAXIS scds high risk for DVT given limited mobility pharmacological anticoagulation avoided due to anemia /thrombocytopenia DISPOSITION referral made for SNF medically stable to transfer to [facility]hab [facility] today Vital Signs: Date Time Temp Pulse Resp B/P (MAP) Pulse Ox O2 Delivery O2 Flow Rate FiO2 02/04/17 12:06 36.3 79 18 97 Room Air 02/04/17 08:00 Room Air 02/04/17 07:00 36.3 79 18 105/57 (73) 97 Room Air 02/04/17 00:04 36.4 80 18 108/54 (72) 98 Room Air 02/04/17 00:00 Room Air 02/03/17 21:04 93 121/66 (84) Lab Results: Results Past 24 Hours Test 02/03/17 20:17 02/04/17 07:18 02/04/17 07:57 02/04/17 11:08 Range/Units Bedside Glucose 192 127 150 70-99 mg/dl White Blood Count 6.54 4.8-10.8 K/uL Red Blood Count 2.66 4.7-6.1 M/uL Hemoglobin 7.7 14.0-18.0 g/dL Hematocrit 24.3 42-52 % Mean Corpuscular Volume 91.4 80-100 fL Mean Corpuscular Hemoglobin 28.9 25-34 pg Mean Corpuscular Hemoglobin Concent 31.7 32-36 g/dl RDW Standard Deviation 53.4 36.4-46.3 fL RDW Coefficient of Variation 16.5 11.5-14.5 % Platelet Count 106 130-400 K/uL Mean Platelet Volume 10.9 7.4-10.4 fL Sodium Level 136 136-145 mmol/L Potassium Level 4.1 3.5-5.1 mmol/L Chloride Level 97 98-107 mmol/L Carbon Dioxide Level 32 21-32 mmol/L Anion Gap 7.0 3-11 mmol/L Blood Urea Nitrogen 46 7-18 mg/dl Creatinine 1.52 0.60-1.40 mg/dl Est Creatinine Clear Calc Drug Dose 34.7 ml/min Estimated GFR () 46.7 Estimated GFR (Non- 40.3 BUN/Creatinine Ratio 30.3 10-20 Random Glucose 96 70-99 mg/dl Calcium Level 8.2 8.5-10.1 mg/dl
[2017-02-04] MEDS: ONDANSETRON INJ 2 MG/ML 2 ML VIAL IV PRN (15:30)
--- NOTE | 2017-02-04 16:36 | Discharge Summary ---
Discharge Summary Date of Service Feb 04, 2017. Discharge Summary Admission Date: Jan 26, 2017 at 13:03 Discharge Date: Feb 04, 2017 Discharge Disposition: halfway facility ([facility] ) Principal Diagnosis: ANEMIA /THROMBOCYTOPENIA /LEFT TOE NON HEALING WOUND Procedures: CHEST XRAY : IMPRESSION: 1. Cardiomegaly with evidence of congestive failure and interstitial edema. 2. There are layering pleural effusions with bibasilar consolidation which likely represents atelectasis. Correlate clinically for evidence of superimposed pneumonia. PICC LINE PLACEMENT CHEST XRAY POST PICC : IMPRESSION: PICC catheter placed in the superior vena cava. No evidence pneumothorax. Consultations: ID -DR ANGEL HOLLAND NEPHROLOGY DR TUCKER HATHAWAY HEME /ONC Medication Reconciliation New Medications: Vancomycin HCl in Sodium Chlor (VANCOMYCIN in NSS) 1 Inj Inj 1250 MG IV Q24H for 42 Days, BAG TOTAL 6 WEEKS GOAL TROUGH LEVEL 15-20 MCG/ML DRAW VANCO TROUGH LEVEL /CREATITINE LEVEL EVERY WEEK FOR 6 WKS WHILE ON IV VANCOMYCIN Nutritional Supplements (Boost) 1 Liq Liq 1 CAN PO TIDM for 30 Days Pantoprazole (Pantoprazole Sodium) 40 Mg Tab 40 MG PO BID for 30 Days, #60 TAB Changed Medications: Furosemide (Lasix) 20 Mg Tab 20 MG PO DAILY for 30 Days, #30 TABS (Changed from: Removed Instructions) Continued Medications: Acetaminophen (Tylenol) 325 Mg Tab 2 TABS PO Q6 for Pain, TAB Ascorbic Acid (Vitamin C) 500 Mg Cap 500 MG PO DAILY Capsaicin (Arthritis Pain Relieving) 0.075 % Cre TOP QID for Pain Apply to affected area QID prn pain Cholecalciferol (Vitamin D3) 2,000 Unit Tab 2000 UNITS PO QAM for 90 Days, TAB 3 Refills Docusate Sodium (Colace) 100 Mg Cap 1 CAP PO BID for 15 Days, #30 CAP Epoetin Davian (Procrit) 10,000 [place] 60312 UNITS SQ q 2 wks for 30 Days Last dose at [facility] 11/10/16. Ferrous Sulfate (Kp Ferrous Sulfate) 325 Mg Tab 1 TAB PO TID Finasteride (Proscar) 5 Mg Tab 1 TAB PO DAILY for 30 Days, #30 TAB 11 Refills Folic Acid (Folvite) 1 Mg Tab 1 MG PO QAM Insulin Aspart (Novolog Flexpen) 100 Units/Ml Inj SQ ACHS SSI Insulin Glargine (Lantus) 100 Unit/Ml Inj 10 UNITS SC HS Metoprolol Tartrate (Lopressor) (Lopressor) 25 Mg Tab 25 MG PO BID, TAB Multivitamins/Minerals (Mvi With Minerals) Tab 1 TAB PO QAM, TAB Ondasetron Odt (Zofran Odt) 4 Mg Tab 4 MG SL Q8 for Nausea, #6 TAB Potassium Chloride (Klor-Con M20) 20 Meq Tabcr 20 MEQ PO DAILY for 30 Days [Protein Liquid] () 30 ML PO DAILY Discontinued Medications: Aspirin Enteric Coated (Ecotrin Or Generic) 81 Mg Tab 81 MG PO QAM, TAB Furosemide (Lasix) 40 Mg Tab 40 MG PO DAILY, TAB Linezolid (Linezolid) 600 Mg Tab 600 MG PO BID for 30 Days, #60 TABS 2 Refills Referrals At Discharge Follow up Referrals: Physician Referral - Within 1-2 Weeks with Morteza Mckeon DO Physician Referral - Within 1-2 Weeks with Arnol Morelos MD Admission Information HPI (per Admitting provider): Pt is 86 y/o M with PMH of chronic systolic HF, a-fib, DM II, HTN, CKD stage III , chronic anemia who presents direct admission from [facility] with c/o anemia with out pt HGB: 5.9. ferritin 102, iron 273 on 01/25/17. Daughter states thinks pt has had transfusion in past. Reports was on procrit in past, unsure when last received that. States past couple of days more SOB, waking up at night feeling SOB, sits up and approx 5 minutes later feels better. Was on lasix 20mg BID and couple weeks ago changed to 40mg in am and 20mg in evening and daughter reports much improvement of bilateral LE edema. Daughter states that past 3 days pt more tired and generalized weakness than usual and sleeping more often. Also states past 3 days with nausea and vomiting and pt hasn't been eating and drinking. Seen by Dr Narvaez yesterday and had labs at that time. He was started on Zofran. States was able to retain bottle of Gatorade today. Denies abdominal pain, CP, fever/chills, diaphoresis, epistaxis, hematemesis, melena, hematochezia, diarrhea, DUFF, dizziness, syncope,neck pain, cough, palpitations, sore throat, choking, otalgia, rhinorrhea, paresthesias, urinary symptoms. Pt with Hx several admissions over past several months. Most recent 12/06/16 for volume overload. At that time HGB was 8.7 and 7.5. Had recent Left toes amputated and pt has wound vac in place and was to have wound clinic evaluation today. Hx admission 08/20/16 for PAD with L foot gangrene, L knee septic arthritis. Admission 09/19/16 for sepsis likely d/t pneumonia and admission for continued osteomyelitis. Pt currently on linezolid. Hx echo 08/29/16: EF 45-50% Physical Exam (per Admitting): General Appearance: no apparent distress (chronic ill appearing) Head: normocephalic, atraumatic Eyes: normal inspection, PERRL, EOMI, sclerae normal, + pertinent finding ( pale conjunctiva) ENT: hearing grossly normal, pharynx normal Neck: supple, no JVD, trachea midline Respiratory/Chest: chest non-tender, lungs clear, normal breath sounds, no respiratory distress, no accessory muscle use Cardiovascular: + systolic murmur, + irregularly irregular Abdomen/GI: normal bowel sounds, non tender, soft Extremities/Musculoskelatal: non-tender, + pedal edema (2+bilateral LE. right 5th toe dorsal surface with abrasion. left anterior lower leg with small skin tear without surrounding erythema or discharge. left foot with wound vac in place to lateral foot over 3-5 toe amputation site; distal pulses intact) Neurologic/Psych: alert (but sleepy, oriented to person and place) Skin: no rash, + pertinent finding (pale color, decubitus ulcer) Hospital Course Profound ANEMIA/THROMBOCYTOPENIA improved hx of chronic anemia and receive Procrit in the past directly sent by pcp for profound anemia Hb 5,4 ; platelet 44 K received total of 4 units of prbc no evidence of active bleeding noted remained stable 7.9 post transfusion s/p EGD 01/28/17 and shows non bleeding gastric ulcers- PPI recommended for 4 weeks appreciate input form Heme Onc Peripheral blood smear : Total white count normal , marked predominance of mature segmental neutrophils without left shift or dysplasia , possible pancytopenia due to chronic illness -CKD, PVD , s/p partial amputation of left left foot with ongoing infection /medication induced -chronic Zyvox tx - leading to bone marrow suppression Prior to admission pt has stable chronic anemia with Hb between 7.4-9 platelet count 01/03 : 140 K 01/10: 101K 01/26: 44 K anemia /thrombocytopenia due to chronic infection /illness worsened with Abx tx with Zyvox stopped Zyvox monitor CBC , transfusion or PRBC as needed for Hb < 7 , symptoms or acute drop /Hge avoid antiplatelets Aspirin D/lizbeth continue to hold till Platelet count > 100 K pt will need weekly CBC check as out pt till Anemia and Thrombocytopenia improves to baseline CHRONIC SYSTOLIC CHF echo 08/29/16 EF: 45-50% clinically appears to be vol depleted hold Lasix for GLEN /dehydration cont to monitor Vol status and renal function Hypokalemia corrected on K supplement A-FIB rate controlled on beta norma not a candidate for chronic anticoagulation pt was on Coumadin in past, but was d/c due to epistaxis and hx falls CAD . Troponin 0.125 mostly NSTEMI from demand ischemia from anemia no complain of chest pain Aspirin on hold for Thrombocytopenia cont Beta norma and statin PVD: leading partial amputation of left toe with non healing wound continue to hold aspirin for low platelet count on Statin S/P L TOE AMPUTATIONS AND SACRAL DECUBITUS ULCER hx of recent gangrene of the left foot status post partial amputation, recent cultures positive for coagulase negative Staph. wound care consulted-appreciate input ; pt has wound vac in place cont local wound care and Wound vac ID consulted and Zyvox D/lizbeth for pancytopenia. 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 Discharge Instructions Discharge Instructions Date of Service Feb 01, 2017. Admission Reason for Admission: Low Hemoglobin Discharge Discharge Diagnosis / Problem: ANEMIA /THROMBOCYTOPENIA /LEFT TOE NON HEALING WOUND Discharge Goals Goal(s): Decrease discomfort, Improve function, Increase independence, Improve disease control, Diagnostic testing, Therapeutic intervention Activity Recommendations Activity Level: Assistance Required Therapies: Physical Therapy, Occupational Therapy Weightbearing Status: Left non-weightbearing . Additional Information Patient informed of condition: Yes Advance Directives: Yes DNR: Yes Level of Care: Acute Rehab Communicable Disease: No Prognosis: Stable [place] Catheter: No Instructions / Follow-Up Instructions / Follow-Up FOLLOW UP WITH WOUND CARE CLINIC IN A WEEK FOLLOW UP WITH ID DR MORELOS IN 1-2 WEEKS LAB WORK : VANCOMYCIN TROUGH LEVEL TOMORROW 02/05/17 AT 7: 30 AM BEFORE THE [address] DOSE PLEASE FAX ALL LAB REPORT TO DR MORELOS OFFICE GOAL TROUGH LEVEL 15-20 MCG /ML DRAW VANCOMYCIN TROUGH LEVEL ONCE A WEEK BUN /CREATININE LEVEL ONCE A WEEK -WHILE ON IV VANCOMYCIN LAB WORK: COMPLETE BLOOD COUNT /BASIC METABOLIC PANEL Tuesday02/07/17 THEN COMPLETE BLOOD COUNT /BASIC METABOLIC PANEL -EVERY WEEK FOR AT LEAST 4 WEEKS TILL LAB VALUE ( ANEMIA /RENAL FUNCTION ) STABILIZES AVOID -ASPIRIN , MOTRIN , NAPROXEN , ALEVE -NO NSAID'S FOR PAIN Current Hospital Diet Patient's current hospital diet: Diabetes Type 2 Diet, AHA Diet (Heart Healthy) Discharge Diet Recommended Diet: AHA Diet (Heart Healthy), Diabetes Type 2 Diet Procedures Procedures Performed: EGD Pending Studies Studies pending at discharge: yes List of pending studies: VANCOMYCIN TROUGH LEVEL TOMORROW 02/05/17 AT 7: 30 AM BEFORE THE [address] DOSE PLEASE FAX ALL LAB REPORT TO DR MORELOS OFFICE GOAL TROUGH LEVEL 15-20 MCG /ML DRAW VANCOMYCIN TROUGH LEVEL ONCE A WEEK BUN /CREATININE LEVEL ONCE A WEEK -WHILE ON IV VANCOMYCIN LAB WORK: COMPLETE BLOOD COUNT /BASIC METABOLIC PANEL IN 2 DAYS THEN COMPLETE BLOOD COUNT /BASIC METABOLIC PANEL -EVERY WEEK FOR AT LEAST 4 WEEKS TILL LAB VALUE ( ANEMIA /RENAL FUNCTION ) STABILIZES Physician Orders On Transfer Dressing Changes: 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 Stage II pressure ulcer left buttocks region wound care : wound care with Aquacel Ag and gauze change daily Medical Emergencies . Who to Call and When: Medical Emergencies: If at any time you feel your situation is an emergency, please call 911 immediately. . Non-Emergent Contact Non-Emergency issues call your: Primary Care Provider . . "Provider Documentation" section prepared by Noris Neil. . Core Measure Problem Core Measures: None Additional Copies To Arnol Morelos MD, Mark R., DO
[2017-02-05] MEDS ORDERED: VANCOMYCIN TROUGH ONE (07:30)
[2017-02-21] MEDS ORDERED: CIPR1TAB11 PO (09:35)
== END 2017-02-04 16:44 | DRG 811 ==
LOC: C.2T 13:03 → C.MS2W 01-31 17:41 → ENRESERV 01-31 17:46
PROVIDERS: ADMIT Internal Medicine; ATTEND Hospitalist
PROC: 0DJ08ZZ Inspection of Upper Intestinal Tract, Via Natural or Artificial Opening Endoscopic (ICD-10-PCS; principal; 2017-01-28 13:41)
PROC: 05H933Z Insertion of Infusion Device into Right Brachial Vein, Percutaneous Approach (ICD-10-PCS; 2017-02-04)
DX: D64.9 Anemia, unspecified (principal); I21.A1 Myocardial infarction type 2; I50.22 Chronic systolic (congestive) heart failure; I13.0 Hypertensive heart and chronic kidney disease with heart failure and stage 1 through stage 4 chronic kidney disease, or unspecified chronic kidney disease; T81.4XXA Infection following a procedure, initial encounter; N17.9 Acute kidney failure, unspecified; E11.9 Type 2 diabetes mellitus without complications; Z79.4 Long term (current) use of insulin; R11.2 Nausea with vomiting, unspecified; I48.91 Unspecified atrial fibrillation; I25.10 Atherosclerotic heart disease of native coronary artery without angina pectoris; Z89.422 Acquired absence of other left toe(s); L89.322 Pressure ulcer of left buttock, stage 2; N18.3 Chronic kidney disease, stage 3 (moderate); Z66 Do not resuscitate; I73.9 Peripheral vascular disease, unspecified; Z95.2 Presence of prosthetic heart valve; Z82.49 Family history of ischemic heart disease and other diseases of the circulatory system; Z87.891 Personal history of nicotine dependence; K26.9 Duodenal ulcer, unspecified as acute or chronic, without hemorrhage or perforation; E87.6 Hypokalemia; D61.818 Other pancytopenia

== ENCOUNTER → 2017-02-08 | Outpatient (CLI) | payer OTHER, MEDICARE ==
[~2017-02-08] MED LIST changes: +ACET-1311 PO; -ASPI81TA21 PO; +ASPI81TA28 PO; +DOCU-94 PO; +FINA5TAB4 PO; +FOLI1POW10 PO; +FOLI1TAB7 PO; -FOLI1TAB8 PO; +LACT1CAP6 PO; -LINE1TAB2 PO; +LINE1TAB6 PO; +MOML PO; +NUTR-7 PO; +ONDA4TAB10 SL; +PANT40TA PO; +POLY335019 PO; +POTA20TA16 PO; +PRT40 PO; +SACC250C PO; +TRAM-10 PO; -ULT50X PO; +VANC1INJ94 IV; +[UNRECOGNIZED DRUG - CODE] TOP
[2017-02-08 10:24] LABS: BLOOD UREA NITROGEN 34 mg/dl (7-18); BUN/CREATININE RATIO 25.7 (10-20); CARBON DIOXIDE 32 mmol/L (21-32); CHLORIDE 103 mmol/L (98-107); CREATININE 1.33 mg/dl (0.60-1.40); GLUCOSE 48 mg/dl (70-99); POTASSIUM 4.3 mmol/L (3.5-5.1); SODIUM 141 mmol/L (136-145)
== END ==
LOC: C.LABCC 08:51
PROVIDERS: ATTEND Internal Medicine
DX: B35.3 Tinea pedis (principal)

== ENCOUNTER 2017-02-12 00:08 | Emergency (ER) | payer OTHER, MEDICARE ==
[~2017-02-12] VITALS: Ht 177.8 cm; Wt 81.5 kg
[~2017-02-12 00:08] MED LIST changes: -ASPI81TA28 PO; -CIPR1TAB11 PO; -FOLI1POW10 PO; -LACT1CAP6 PO; -LINE1TAB6 PO; -MOML PO; -PANT40TA PO; -POLY335019 PO; -POTA20TA16 PO; -SACC250C PO; -TRAM-10 PO
[2017-02-12 00:15] VITALS: TEMP 36.4; Ht 177.8 cm; Wt 81.5 kg
[2017-02-12] MEDS ORDERED: ASPI81TA28 PO (00:47)
[2017-02-12] MEDS ORDERED: SACC250C PO (00:51)
[2017-02-12] MEDS ORDERED: FOLI1POW10 PO (00:52)
[2017-02-12] MEDS ORDERED: FURO-85 PO (00:53)
[2017-02-12] MEDS ORDERED: POTA20TA16 PO (00:57)
[2017-02-12] MEDS ORDERED: LINE1TAB6 PO (00:59)
[2017-02-12] MEDS ORDERED: MOML PO (01:01)
[2017-02-12] MEDS ORDERED: POLY335019 PO (01:02)
[2017-02-12] MEDS ORDERED: LACT1CAP6 PO (01:04)
[2017-02-12] MEDS ORDERED: EPGI10M SQ (01:06)
[2017-02-12] MEDS ORDERED: PANT40TA PO (01:07)
[2017-02-12] MEDS ORDERED: TRAM-10 PO (01:08)
[2017-02-12] MEDS ORDERED: VANC1INJ94 IV (01:13)
[2017-02-12] MEDS ORDERED: NUTR-7 PO (01:17)
[2017-02-12 02:15] LABS: BASO % 0.2 %; BASO ABS # 0.01 K/uL (0-0.2); EOS % 1.8 %; HEMATOCRIT 27.2 % (42-52); IG% 0.2 %; LYMPH % 10.6 %; LYMPH ABS # 0.64 K/uL (1.2-3.4); MEAN CELL VOLUME 91.6 fL (80-100); MEAN CORPUSCULAR HEMOGLOBIN 27.6 pg (25-34); MEAN CORPUSCULAR HGB CONC 30.1 g/dl (32-36); MEAN PLATELET VOLUME 10.4 fL (7.4-10.4); MONO % 10.3 %; NEUT % 76.9 %; PLATELET COUNT 143 K/uL (130-400); RED BLOOD COUNT 2.97 M/uL (4.7-6.1); WHITE BLOOD COUNT 6.03 K/uL (4.8-10.8)
[2017-02-12 02:28] LABS: INR 1.2 (0.9-1.1)
[2017-02-12 02:33] LABS: ALT/SGPT 32 U/L (12-78); AST/SGOT 19 U/L (15-37); BLOOD UREA NITROGEN 34 mg/dl (7-18); BUN/CREATININE RATIO 23.6 (10-20); CALCIUM 7.8 mg/dl (8.5-10.1); CARBON DIOXIDE 28 mmol/L (21-32); CHLORIDE 102 mmol/L (98-107); CREATININE 1.44 mg/dl (0.60-1.40); GLUCOSE 110 mg/dl (70-99); POTASSIUM 4.1 mmol/L (3.5-5.1); SODIUM 137 mmol/L (136-145)
[2017-02-12 02:38] LABS: ALB/GLOB RATIO 0.5 (0.9-2); ALKALINE PHOSPHATASE 129 U/L (45-117)
[2017-02-12 02:58] LABS: COMPLETE YES; HYPOCHROMIA PRESENT
[2017-02-12] MEDS ORDERED: FUROSEMIDE 40 MG/4 ML VIAL IV STA (04:51)
--- NOTE | 2017-02-12 05:15 | EMERGENCY ROOM VISIT NOTE ---
History Report prepared by Pattie: Nicole Major Under the Supervision of: Dr. Ching Thompson D.O. First contact with patient: 00:45 Chief Complaint: OTHER COMPLAINT Stated Complaint: PICC LINE PROBLEMS History of Present Illness The patient is an 86 year old male who presents to the Emergency Room with complaints of worsening right arm redness starting [employer]INE[employer]. The patient resides at [facility]. He currently has a PICC line in his right arm for antibiotics. After supper today, he noticed that he had redness around the PICC line site. The redness is spreading down his arm. He does not have any pain in his arm. He has not had any trouble with his PICC line before. He denies any fever or vomiting. Her daughter notes that he is having swelling in his right leg which is gradually worsening. He notes his right knee is sore. He had surgery on his left foot and currently has a wound vac. He is on antibiotics for his foot. He was in the hospital 1 week ago with bleeding ulcers. He has been weak and has been undergoing therapy. He has a history of CHF and kidney problems. He is SOB with lying down which is normal. He denies any history of blood clots. He is left handed. 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 Pt denies arm pain. Review of Systems See HPI for pertinent positives & negatives. A total of 10 systems reviewed and were otherwise negative. Past Medical & Surgical Medical Problems: (1) Anemia (2) Aortic stenosis (3) Atrial fibrillation (4) Carotid arterial disease (5) CKD (chronic kidney disease), stage III (6) Diabetes mellitus, type 2 (7) Diabetic peripheral neuropathy associated with type 2 diabetes mellitus (8) Dyslipidemia (9) History of adenomatous polyp of colon (10) History of diabetic ulcer of foot (11) Hypertension (12) Non-healing open wound of toe (13) Peripheral vascular disease (14) Rheumatoid arthritis (15) Septic joint of left knee joint (16) Systolic and diastolic CHF, chronic (17) Volume overload Surgical Problems: (1) Status post amputation of toe of left foot (2) Status post amputation of toe of right foot (3) Status post aortic valve replacement with bioprosthetic valve (4) Status post cataract extraction (5) Status post cholecystectomy (6) Status post coronary artery bypass grafting Family History Cancer BROTHER SISTER Coronary artery disease FATHER Kidney disease BROTHER Social History Smoking Status: Never Smoker Alcohol Use: occasionally Drug Use: none Marital Status: Occupation Status: retired Current/Historical Medications Scheduled Acetaminophen (Tylenol), 2 TABS PO Q6 Ascorbic Acid (Vitamin C), 500 MG PO DAILY Aspirin (Aspirin Ec), 81 MG PO DAILY Capsaicin (Arthritis Pain Relieving), TOP QID Cholecalciferol (Vitamin D3), 2,000 UNITS PO QAM Docusate Sodium (Colace), 1 CAP PO BID Epoetin Davian (Procrit), 10,000 UNITS SQ q 2 wks Ferrous Sulfate (Kp Ferrous Sulfate), 1 TAB PO TID Finasteride (Proscar), 1 TAB PO DAILY Folic Acid (Folvite), 1 MG PO QAM Furosemide (Lasix), 20 MG PO DAILY Insulin Aspart (Novolog Flexpen), SQ ACHS Insulin Glargine (Lantus), 10 UNITS SC HS Lactobacillus (Probiotic), 1 MG PO BID Linezolid (Zyvox), 600 MG PO BID Metoprolol Tartrate (Lopressor) (Lopressor), 25 MG PO BID Multivitamins/Minerals (Mvi With Minerals), 1 TAB PO QAM Nutritional Supplements (Boost), 1 CAN PO TIDM Ondasetron Odt (Zofran Odt), 4 MG SL Q8 Pantoprazole (Protonix), 40 MG PO BID Polyethylene Glycol 3350 (Miralax), 17 GM PO DAILY Potassium Ext Rel (Klor-Con), 20 MEQ PO DAILY Saccharomyces Boulardii (Florastor), 500 MG PO BID Vancomycin HCl in Sodium Chlor (VANCOMYCIN in NSS), 1,250 MG IV Q24H [Protein Liquid], 30 ML PO DAILY Scheduled PRN Magnesium Hydroxide (Milk Of Magnesia), 30 ML PO DIRECTED PRN for constipatio Tramadol (Ultram), 50 MG PO Q6 PRN for Pain Allergies Coded Allergies: HERMAN Inhibitors (Verified Allergy, Intermediate, UNKNOWN, 02/12/17) Lisinopril (Verified Adverse Reaction, Unknown, COUGHING, 02/12/17) Physical Exam Vital Signs Date Time Temp Pulse Resp B/P (MAP) Pulse Ox O2 Delivery O2 Flow Rate FiO2 02/12/17 07:40 91 17 109/66 98 02/12/17 07:35 91 17 109/66 98 Room Air 02/12/17 06:07 97 20 110/73 96 Room Air 02/12/17 03:36 80 18 111/71 97 Room Air 02/12/17 02:08 84 18 101/82 96 Room Air 02/12/17 00:15 36.4 88 24 117/63 96 Room Air Physical Exam GENERAL: alert, well appearing, well nourished, no distress, non-toxic EYE EXAM: normal conjunctiva, PERRL and EOM's grossly intact OROPHARYNX: no exudate, no erythema, lips, buccal mucosa, and tongue normal and mucous membranes are moist NECK: supple, no nuchal rigidity, no adenopathy, non-tender LUNGS: Clear to auscultation. No wheezes, rhonchi, rales. Normal chest wall mechanics HEART: no murmurs, S1 normal and S2 normal ABDOMEN: abdomen soft, non-tender, normo-active bowel sounds, no masses, no rebound or guarding. BACK: Back is symmetrical on inspection and there is no deformity, no midline tenderness, no CVA tenderness. SKIN: no rashes and no bruising UPPER EXTREMITIES: Left upper extremity normal. Right lower extremity with PICC line noted proximally with no erythema at the skin insertion site, distally erythema noted extending in to the forearm with mild edema. Distally appears more ecchymotic. No rashes or sores. Normal cap refill. Normal pulses. Normal ROM. LOWER EXTREMITIES: Left lower extremity with a wound vac on the dorsum of the foot near the 3rd and 4th toes. Mild lower extremity edema, but normal pulses. No surrounding erythema or warmth. Right lower extremity with 2+ edema up to the knee. No calf tenderness. No erythema. NEURO EXAM: Normal sensorium, cranial nerves II-XII grossly intact, normal speech. Patient moves all extremities. No facial droop. No dysarthria. Gross sensation intact. Medical Decision & Procedures ER Provider Diagnostic Interpretation: X-ray: I interpreted the following studies. Chest: Sternotomy wires noted. Bilateral pleural effusions. PICC line noted. No pneumothorax. Slightly increased interstitial markings and right sided effusion compared to prior. No wide mediastinum. Calcified aortic knob. Radiology results have been interpreted by the [facility] radiologist and reviewed by me. US Venous Right Upper Extremity: No evidence of DVT. PICC extending through basilica vein with small nonocclusive thrombus at the level of the mid basilic vein. There is subcutaneous edema in the medial right forearm, corresponding to the region of skin redness. US Venous Bilateral Lower Extremities: Impression: No evidence of DVT in the bilateral lower extremities. Bilateral groin lymphadenopathy. Findings: Bilateral lower extremity edema. No evidence of DVT. The left greater saphenous vein is not visualized. Laboratory Results 02/12/17 01:56 Red Blood Count 2.97, Mean Corpuscular Volume 91.6, Mean Corpuscular Hemoglobin 27.6, Mean Corpuscular Hemoglobin Concent 30.1, Mean Platelet Volume 10.4, Neutrophils (%) (Auto) 76.9, Lymphocytes (%) (Auto) 10.6, Monocytes (%) (Auto) 10.3, Eosinophils (%) (Auto) 1.8, Basophils (%) (Auto) 0.2, Neutrophils # (Auto ) 4.64, Lymphocytes # (Auto) 0.64, Monocytes # (Auto) 0.62, Eosinophils # (Auto ) 0.11, Basophils # (Auto) 0.01 02/12/17 01:56 Test 02/12/17 01:56 White Blood Count 6.03 K/uL (4.8-10.8) Red Blood Count 2.97 M/uL (4.7-6.1) Hemoglobin 8.2 g/dL (14.0-18.0) Hematocrit 27.2 % (42-52) Mean Corpuscular Volume 91.6 fL (80-100) Mean Corpuscular Hemoglobin 27.6 pg (25-34) Mean Corpuscular Hemoglobin Concent 30.1 g/dl (32-36) Platelet Count 143 K/uL (130-400) Mean Platelet Volume 10.4 fL (7.4-10.4) Neutrophils (%) (Auto) 76.9 % Lymphocytes (%) (Auto) 10.6 % Monocytes (%) (Auto) 10.3 % Eosinophils (%) (Auto) 1.8 % Basophils (%) (Auto) 0.2 % Neutrophils # (Auto) 4.64 K/uL (1.4-6.5) Lymphocytes # (Auto) 0.64 K/uL (1.2-3.4) Monocytes # (Auto) 0.62 K/uL (0.11-0.59) Eosinophils # (Auto) 0.11 K/uL (0-0.5) Basophils # (Auto) 0.01 K/uL (0-0.2) RDW Standard Deviation 58.2 fL (36.4-46.3) RDW Coefficient of Variation 17.8 % (11.5-14.5) Immature Granulocyte % (Auto) 0.2 % Immature Granulocyte # (Auto) 0.01 K/uL (0.00-0.02) Hypochromasia PRESENT Prothrombin Time 13.0 SECONDS (9.0-12.0) Prothromb Time International Ratio 1.2 (0.9-1.1) Anion Gap 7.0 mmol/L (3-11) Est Creatinine Clear Calc Drug Dose 36.6 ml/min Estimated GFR () 49.9 Estimated GFR (Non- 43.0 BUN/Creatinine Ratio 23.6 (10-20) Lactic Acid Level 1.3 mmol/L (0.4-2.0) Calcium Level 7.8 mg/dl (8.5-10.1) Total Bilirubin 0.5 mg/dl (0.2-1) Aspartate Amino Transf (AST/SGOT) 19 U/L (15-37) Alanine Aminotransferase (ALT/SGPT) 32 U/L (12-78) Alkaline Phosphatase 129 U/L (45-117) Troponin I 0.015 ng/ml (0-0.045) Pro-B-Type Natriuretic Peptide > 02455 pg/ml (0-1800) Total Protein 6.9 gm/dl (6.4-8.2) Albumin 2.2 gm/dl (3.4-5.0) Globulin 4.7 gm/dl (2.5-4.0) Albumin/Globulin Ratio 0.5 (0.9-2) Laboratory results per my review. Medications Administered Medications (Trade) Dose Ordered Sig/Rosemarie Route Start Time Stop Time Status Last Admin Dose Admin Furosemide (Lasix Inj) 40 mg NOW STAT IV 02/12/17 04:51 02/12/17 04:52 DC 02/12/17 05:02 40 MG ECG Indication: SOB/dyspnea Rate (beats per minute): 83 Rhythm: atrial fibrillation Findings: no acute ischemic change, other (normal axis, normal QRS and QTc, poor quality tracing) ED Course 0055: The patient was evaluated in room B6. A complete history and physical exam was performed. 0120: The PICC nurse says that there is nothing at the skin insertion site. The redness seems all distal. They will take down all the dressing and check for redness. The PICC is pulling blood normally and flushing. 0432: I reevaluated the patient. I updated the patient and his family on the results. I reexamined the arm and there is no change. 0451: Furosemide 40 mg IV. 0644: I reevaluated the patient. I outlined the red area with a sterile marker pen. I discussed the findings and the treatment plan with the patient and family. They verbalize agreement and understanding. He was discharged home. Medical Decision Differential diagnosis includes etiologies such as cellulitis, abscess, MRSA infection, DVT, necrotizing fasciitis, dermatitis, drug eruption, as well as others were entertained. Patient with multiple medical problems, currently in rehabilitation, on IV antibiotics secondary to recent toe amputation and osteomyelitis of the left foot. Patient well-appearing here, stated he had no new complaints, nursing staff was concerned about some redness seen on the right forearm which is the same extremity that his PICC line is in. Both myself and the PICC nurse in house examined the site and there is no redness at the skin insertion site for the PICC line. It flushes okay and blood can be aspirated easily. There is an area of redness that begins just distal to the Tegaderm for his PICC line near the elbow and extends down onto the forearm which appears mildly erythematous and other portions of which appear more ecchymotic as though he had been leaning on that area or sustained some sort of soft tissue contusion. There is some mild dependent edema of the right forearm. Patient with full range of motion, no evidence of joint effusion. Area is not warm to the touch or painful to the touch. An upper extremity as well as bilateral lower extremity ultrasounds were negative for DVT. Patient with chronic pleural effusions, poor EF, and likely chronic component of congestive heart failure despite outpatient use of diuretics. Patient given an additional dose here due to mention of worsening right lower extremity edema. Other labs were stable when compared to prior. Patient hemodynamically stable here and without any additional complaints. Discussed with patient and daughter extensively at bedside and they are agreeable with return to rehabilitation for continued treatment and management. Area on forearm outlined with sterile marking pen as a precaution to monitor for any worsening changes. Discussed with patient and daughter symptoms that would be concerning, reasons to return to the emergency room, possible differential diagnosis, risks associated with his current condition, possible consultations given his complex current condition, inpatient admission versus returning to rehabilitation. Using shared medical decision making, patient and family agreeable with his return to rehabilitation and close follow-up with his doctors and continued monitoring of his condition including the right upper extremity. Medication Reconcilliation Current Medication List: was personally reviewed by me Blood Pressure Screening Patient's blood pressure: Normal blood pressure Blood pressure disposition: Did not require urgent referral Impression Primary Impression: right arm erythema Additional Impressions: Volume overload CKD (chronic kidney disease), stage III Status post amputation of toe of left foot Bilateral lower extremity edema Anemia Scribe Attestation The scribe's documentation has been prepared under my direction and personally reviewed by me in its entirety. I confirm that the note above accurately reflects all work, treatment, procedures, and medical decision making performed by me. Departure Information Dispostion Home / Self-Care Referrals [facility] (PCP) Patient Instructions My [facility] Additional Instructions Please continue regular medications as prescribed. Please stop with the doctor about your diuretic given the chronic fluid in your lungs but worsening lower extremity edema. Please continue to monitor the redness and bruising to your right forearm. Please continue to monitor the PICC site in the right arm for any redness. If you develop fevers, increased trouble breathing, increased swelling or redness in the legs, develop vomiting, difficulty urinating, chest pain, or you've any other new concerns, please return the emergency room. Problem Qualifiers Additional Impressions: Volume overload Hypervolemia type: unspecified Qualified Codes: E87.70 - Fluid overload, unspecified Anemia Anemia type: unspecified type Qualified Codes: D64.9 - Anemia, unspecified
[2017-02-12 07:40] VITALS: BP 109/66; PULSE 91; O2SAT 98
--- NOTE | 2017-02-12 09:11 | DIAGNOSTIC IMAGING REPORT ---
CHEST ONE VIEW PORTABLE CLINICAL HISTORY: Shortness of breath. COMPARISON STUDY: Chest radiograph February 04, 2017. FINDINGS: Tip of right PICC projects over the distal SVC. There is no pneumothorax. There are median sternotomy wires and prosthetic cardiac valve. Cardiomegaly is unchanged. There is pulmonary vascular congestion with suspected mild pulmonary edema. Moderate bilateral pleural effusions persist. Appearance the chest is unchanged. IMPRESSION: 1. Interstitial thickening suggestive of mild pulmonary edema. 2. Persistent moderate bilateral pleural effusions and associated bibasilar opacities. Electronically signed by: Jm Cornejo M.D. 02/12/2017 9:09 AM Dictated Date/Time: 02/12/2017 9:08 AM
--- NOTE | 2017-02-12 09:13 | DIAGNOSTIC IMAGING REPORT ---
RIGHT UPPER EXTREMITY VENOUS DOPPLER ULTRASOUND CLINICAL HISTORY: Right PICC. Right arm edema. COMPARISON STUDY: Right upper extremity venous Doppler September 02 2016. FINDINGS: No deep venous thrombus is identified within the right upper extremity. A right PICC is noted. A small amount of thrombus within the right basilic vein along the PICC is noted. Subcutaneous edema of the right forearm is noted. IMPRESSION: 1. No evidence of deep venous thrombus within the right upper extremity. 2. Small amount of nonocclusive superficial thrombus within the right basilic vein, along the PICC catheter. Electronically signed by: Jm Cornejo M.D. 02/12/2017 9:12 AM Dictated Date/Time: 02/12/2017 9:10 AM
--- NOTE | 2017-02-12 09:17 | DIAGNOSTIC IMAGING REPORT ---
BILATERAL LOWER EXTREMITY VENOUS DOPPLER CLINICAL HISTORY: Bilateral lower extremity swelling. Left lower extremity surgery. COMPARISON STUDY: Bilateral lower extremity venous Doppler November 05, 2016. TECHNIQUE: Sonography of the deep venous system of the bilateral lower extremities was performed. Compression and augmentation were evaluated. FINDINGS: The bilateral common femoral, superficial femoral and popliteal veins were compressible. Augmentation was normal. Flow was shown within the deep calf vessels. Note was made of a mixed echogenicity right groin structure that measured 2.9 x 1 x 1.9 cm. This favors a mildly enlarged lymph node. A few mildly enlarged left inguinal lymph nodes measure up to 2.9 x 1.2 x 1.2 cm. The left greater saphenous vein was not visualized. IMPRESSION: 1. No evidence of deep venous thrombus within the bilateral lower extremities. 2. 2.9 x 1 x 1.9 cm right groin nodule. This favors a mildly enlarged lymph node although is indeterminate. A few prominent left femoral lymph nodes are likely benign. Electronically signed by: Jm Cornejo M.D. 02/12/2017 9:16 AM Dictated Date/Time: 02/12/2017 9:12 AM
== END 2017-02-12 07:41 | disposition home or self-care (01) ==
LOC: EDBD 00:08 → C.EDB 00:09
DX: L53.9 Erythematous condition, unspecified (principal); E87.70 Fluid overload, unspecified; I12.9 Hypertensive chronic kidney disease with stage 1 through stage 4 chronic kidney disease, or unspecified chronic kidney disease; N18.3 Chronic kidney disease, stage 3 (moderate); Z89.432 Acquired absence of left foot; R60.9 Edema, unspecified; D64.9 Anemia, unspecified; I48.91 Unspecified atrial fibrillation; E11.9 Type 2 diabetes mellitus without complications; I50.42 Chronic combined systolic (congestive) and diastolic (congestive) heart failure; E78.5 Hyperlipidemia, unspecified; M06.9 Rheumatoid arthritis, unspecified; I73.9 Peripheral vascular disease, unspecified; Z95.828 Presence of other vascular implants and grafts; Z90.49 Acquired absence of other specified parts of digestive tract; Z98.49 Cataract extraction status, unspecified eye; Z95.1 Presence of aortocoronary bypass graft; Z95.2 Presence of prosthetic heart valve; Z89.421 Acquired absence of other right toe(s); Z79.82 Long term (current) use of aspirin; Z79.4 Long term (current) use of insulin; Z79.899 Other long term (current) drug therapy; Z88.8 Allergy status to other drugs, medicaments and biological substances; Z80.9 Family history of malignant neoplasm, unspecified; Z82.49 Family history of ischemic heart disease and other diseases of the circulatory system; Z84.1 Family history of disorders of kidney and ureter

== ENCOUNTER → 2017-02-12 | Outpatient (CLI) | payer MEDICARE, OTHER ==
[~2017-02-12] MED LIST changes: +CIPR1TAB11 PO
== END ==
LOC: C.LABCC 14:59
PROVIDERS: ATTEND Internal Medicine
DX: M86.272 Subacute osteomyelitis, left ankle and foot (principal)

== ENCOUNTER → 2017-02-14 | Outpatient (CLI) | payer OTHER, MEDICARE ==
[~2017-02-14] MED LIST changes: +ASPI81TA28 PO; +FOLI1POW10 PO; +LACT1CAP6 PO; +LINE1TAB6 PO; +MOML PO; +PANT40TA PO; +POLY335019 PO; +POTA20TA16 PO; +SACC250C PO; +TRAM-10 PO
[2017-02-14 08:59] LABS: HEMATOCRIT 26.8 % (42-52); MEAN CELL VOLUME 92.7 fL (80-100); MEAN CORPUSCULAR HGB CONC 30.2 g/dl (32-36); MEAN PLATELET VOLUME 11.5 fL (7.4-10.4); PLATELET COUNT 121 K/uL (130-400); RED BLOOD COUNT 2.89 M/uL (4.7-6.1); WHITE BLOOD COUNT 5.04 K/uL (4.8-10.8)
[2017-02-14 09:12] LABS: FERRITIN 98.1 ng/ml (8.0-388.0)
== END ==
LOC: C.LABCC 08:18
PROVIDERS: ATTEND Internal Medicine
DX: D64.9 Anemia, unspecified (principal)

== ENCOUNTER → 2017-02-19 | Outpatient (CLI) | payer MEDICARE, OTHER ==
[~2017-02-19] MED LIST changes: +CIPR1TAB11 PO; -FOLI1POW10 PO; -MCRK20 PO; -PROTEIN PO; -PRT40 PO
== END ==
LOC: C.LABCC 22:47
PROVIDERS: ATTEND Internal Medicine
DX: M86.9 Osteomyelitis, unspecified (principal)

== ENCOUNTER → 2017-03-11 | Outpatient (CLI) | payer OTHER, MEDICARE ==
[~2017-03-11] MED LIST changes: -FOLI1TAB7 PO; +FOLI1TAB8 PO; -LINE1TAB6 PO
== END ==
LOC: C.LABCC 22:25
PROVIDERS: ATTEND Internal Medicine
DX: M86.9 Osteomyelitis, unspecified (principal)

== ENCOUNTER → 2017-03-22 | Outpatient (CLI) | payer OTHER, MEDICARE | LOC: C.LABCC 17:27 | PROVIDERS: ATTEND Internal Medicine | DX: R21 Rash and other nonspecific skin eruption (principal) ==

== ENCOUNTER → 2017-03-24 | Outpatient (CLI) | payer OTHER, MEDICARE ==
[~2017-03-24] MED LIST changes: +POTA-639 PO; -POTA20TA16 PO
== END | disposition home or self-care (01) ==
LOC: C.LABCC 07:46
PROVIDERS: ATTEND Internal Medicine
DX: R41.82 Altered mental status, unspecified (principal)